=== PATIENT | female | born 1960 | race Caucasian/White ===

== ENCOUNTER 2017-10-30 07:57 | Outpatient (POV) | payer OTHER, SELFPAY | END 2017-10-30 12:06 | disposition home or self-care (01) | PROVIDERS: PCP Podiatrist; Visit Provider Podiatrist | DX: Z98.890 Other specified postprocedural states (principal) | CPT/HCPCS: 99024 ==

== ENCOUNTER 2017-11-06 08:05 | Outpatient (POV) | payer OTHER, SELFPAY | END 2017-11-06 12:03 | disposition home or self-care (01) | PROVIDERS: Visit Provider Podiatrist | DX: Z98.890 Other specified postprocedural states (principal) | CPT/HCPCS: 99024; 73630 ==

== ENCOUNTER 2017-11-13 07:59 | Outpatient (POV) | payer OTHER, SELFPAY | END 2017-11-13 13:49 | disposition home or self-care (01) | PROVIDERS: Visit Provider Podiatrist | DX: Z98.890 Other specified postprocedural states (principal) | CPT/HCPCS: 99024 ==

== ENCOUNTER 2017-11-20 09:00 | Outpatient (POV) | payer OTHER, SELFPAY | END 2017-11-20 14:10 | disposition home or self-care (01) | PROVIDERS: Visit Provider Podiatrist | DX: Z98.890 Other specified postprocedural states (principal) | CPT/HCPCS: 99024; 73630; 87070; 87077; 87186 ==

== ENCOUNTER → 2017-12-05 12:55 | Outpatient (CLI) | payer OTHER, SELFPAY ==
--- NOTE | 2017-12-05 13:03 | MR_ITS ---
MR knee RT wo con HISTORY: Right knee pain. Knee popping, pain anterior and posterior ITS.REASON: PAIN, HX OF TORN MENISCUS ORDERING PHYSICIAN: Albania Ramirez MD PATIENT AGE: 57 years COMPARISON: None TECHNIQUE: Standard multiplanar multiecho sequences are performed without contrast. FINDINGS: The menisci appear intact. The collateral ligaments, patellar tendon, and quadriceps tendon all appear intact. There is a radial tear involving the posterior horn of the medial meniscus. Part of the posterior horn of the medial meniscus is missing posteriorly and may be due to prior surgery/meniscectomy. Please correlate with patient's history. There are severe osteoarthritic changes involving all 3 compartments with prominent osteophyte formation along the patella superiorly and inferiorly as well as the distal femur and proximal tibia. There is decrease in joint space both medially and laterally and at the patellofemoral joint. Subcortical altered signal is noted in the distal femur anteriorly with decreased T1 and increased T2 signal as well as the central aspect of the medial tibial plateau consistent with underlying bone marrow edema possibly stemming from the arthritic change. Subcortical cystic changes involving the proximal tibia. There is a small knee joint effusion. IMPRESSION: 1. Radial tear of the posterior horn of the medial meniscus. Posterior horn of medial meniscus is smaller than expected posteriorly and could be due to prior meniscectomy or meniscal tear. 2. Severe osteoarthritic changes with knee joint effusion and bony spurs
== END ==
PROVIDERS: PCP Family Medicine; Visit Provider Family Medicine
DX: M25.561 Pain in right knee (principal); Z87.828 Personal history of other (healed) physical injury and trauma
CPT/HCPCS: 73721

== ENCOUNTER → 2017-12-12 12:20 | Outpatient (CLI) | payer OTHER, SELFPAY ==
--- NOTE | 2017-12-12 12:25 | XR_ITS ---
XR foot LT min 3V HISTORY: Left foot pain ITS.REASON: LEFT FOOT PAIN ORDERING PHYSICIAN: Piper Rice PATIENT AGE: 57 years COMPARISON: 11/06/2017 FINDINGS: Status post arthrodesis of the first metatarsophalangeal joint with dorsal bone plate with multiple screws. The screw which is in the middle aspect of the bone plate is oriented obliquely and is now withdrawn by approximately 8 mm with the proximal aspect of the screw extending in the soft tissues. The long wires have been removed from the first and second toes. Status post fusion of the PIP joint of the second toe with good alignment. Borderline pes planus. IMPRESSION: 1. Status post arthrodesis of the first metatarsophalangeal joint. The central screw within the bone plate has distracted by approximately 8 mm compared to the previous exam projecting into the soft tissues of the dorsal aspect of the metatarsophalangeal junction 2. Interval removal of the pins in the first and second toes
== END ==
PROVIDERS: PCP Nurse Practitioner; Visit Provider Nurse Practitioner
DX: M79.672 Pain in left foot (principal)
CPT/HCPCS: 73630

== ENCOUNTER 2017-12-19 07:29 | Day surgery (SDC) | payer OTHER, SELFPAY ==
[2017-12-18 12:36] VITALS: BMI 32.1
--- NOTE | 2017-12-19 | XR_ITS ---
XR toe LT min 2V CLINICAL INDICATION: ITS.REASON: SCREW REMOVAL ORDERING PHYSICIAN: Mony Peterson DPM PATIENT AGE: 57 years Fluoroscopy time: 36 seconds COMPARISON: 12/12/2017 FINDINGS: C-arm utilized with multiple images submitted showing interval removal of the oblique screw within the mid aspect of the dorsal bone plate. IMPRESSION: C-arm utilized with multiple images submitted showing interval removal of the oblique screw within the mid aspect of the dorsal bone plate.
[2017-12-19 08:09] VITALS: BP 151/75; PULSE 66; RESP 20; TEMP 36.4; O2SAT 95
--- NOTE | 2017-12-19 08:57 | HMH.OPNOTE ---
Date of procedure: 12/19/17 Pre-op Diagnosis:: Left Painful Retained Hardware Post-op diagnosis:: same Procedure performed:: Left 1st MPJ Hardware Removal Surgeon:: Mony Peterson DPM [employer] ENAMEL REPAIRER:: Tony Reid Anesthesia: MAC Estimated blood loss (mL): 10 Clinical Note:: Ms. Tavares is 57 y/o female who presents for post op check. S/p left 1st MPJ AD, 2nd PIPJ AD with MPJ release on 10/22/17. POD 4 weeks, 1 day. Denies new complaints. Pain controlled. Patient is s/p right second PIPJ arthrodesis and MPJ release on 07/04/17. Patient reports having a right knee MRI 12/05/17. She said pain started to the top of the left 1st MPJ 12/08/17. She noticed a small bump or cyst on the top of the joint. She denies drainage, malodor, signs of infection. 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 S/P Left 1st MPJ AD, 2nd PIPJ AD (with implant), 2nd MPJ Release, 10/22/17: POD # 4 weeks, 1 day X-rays taken of left foot today, 12/12/17 show 1st MPJ lag screw backing out of the plate by 8mm. No definitive signs of infection. We discussed the x-ray. It is possible that the MRI loosened the screw because it was less than 8 weeks since surgery. We also discussed the possibility of infection. There is no open wound to the hallux/1st MPJ. We discussed HWR and doing infection markers and bone biopsy to rule out deep infection. HWR Surgery Pre-op: Conservative treatment included ice, elevation, NSAIDs, strapping, taping, modification of shoe gear, and stretching. Conservative treatment discussed but has been exhausted. We discussed surgery. All risks and benefits were discussed including but not limited to: damage to blood vessels and nerves, bleeding, infection, wound complications, delayed or non-union of bone, post-traumatic arthritis, need for further surgery, retained implant, prolonged swelling of the extremity, prolonged pain, RSD/CRPS, DVT, and anesthetic complications. No guarantees were given. All questions fully answered. The patient verbalized understanding and agreed to proceed with surgery. Consent was obtained. Necessary labs and pre-op testing ordered: CBC, CMP, ESR, CRP. Short fracture boot dispensed and applied today in office. e-Rx Bactrim post op Plan surgery: left hardware removal, bone biospy Operative findings:: No purulence or signs of infection Intrafragmentary compression screw backing out of plate Operative note:: On this date and time patient was deemed an appropriate surgical candidate. With informed consent signed, the patient was taken to the operating theater. The patient was positioned supine. MAC anesthesia was induced. Tourniquet was applied to the left mid-calf. Pre-op left ankle block given with 30 cc 0.5% marcaine plain. Left 1st Metatarsal Hardware Removal: The left lower extremity was prepped and drapped in normal sterile fashion. The tourniquet was inflated at 225mmHg. Attention was directed to the left 1st MPJ, where a dorsal linear incision was mapped out over the joint. Dissection was carried thru skin and sub q tissue, with care to maintain surgical hemostasis. The intrafragmentary compression screw was visualized. It had backed out of the 1st MPJ locking plate. The screw was removed. It was sent to the lab for culture. No signs of infection noted. The soft tissue appeared healthy with no lion or necrotic tissue noted. There was no purulence or malodor appreciated. No periwound erythema or palpable lymph nodes. Left 1st Metatarsal Bone Biopsy: The was flushed with copious amounts of normal sterile saline. A piece of the first metatarsal was sent as a bone culture and another piece of bone was taken as a bone biopsy for pathology. Bone was hard, color and texture was within normal limits. The 1st MPJ was stressed under intra-operative fluoroscopy. The joint appeared stable with no motion at the 1st MPJ. [employer] bone pu
--- NOTE | 2017-12-19 09:08 | HMH.ANESCL ---
[facility] Anesthesia Checklist - Patient Identification Patient Identification: Arm Band - Structural Data Admitted From: Home Planned Operative Procedure/s: left foot hardware removal, bone biopsy Consent for Planned Operative Procedure(s) Verified: Yes Verified Documents: Surgical Consent - NPO Status Verified Time NPO: 00:00 - Additional verifications Anesthesia Reactions: No - Airway Assessment C-Spine Mobility Assessed: Yes (MP2) TMJ Mobility Assessed: Yes Dentition: Good Dentition - Neurological Assessment Level of Consciousness: Awake, Alert - Anesthesia Plan Anesthesia Risk discussed: Yes Anesthesia Plan: Verified ASA Class: II Anesthesia Type: MAC [facility] Anesthesia HX I have reviewed the patient's past medical history: Yes Medical History: Reports:: Hypertension Denies:: Cancer, Diabetes Mellitus Type 1, Internal Pacemaker, MRSA, Seizures Other Medical History: Denies: Blood Transfusion Reaction Comment: YOANA-cpap hs , seasonal allergies, migraines, fibromyalgia Laterality Cases: Left: Total Knee Replacement, Right: Carpal Tunnel Release, Bilateral: Arthroscopy Knee Other Surgeries: Yes: Appendectomy. No: Pacemaker Amputation: No Fractures: No Comment: cystoscopy, right wrist, btl *Family Hx:: Diabetes, Hyperlipidemia, Hypertension, Kidney Disease
[2017-12-19 09:55] VITALS: BP 132/78; PULSE 60; RESP 16; TEMP 36.7; O2SAT 98
--- NOTE | 2017-12-19 10:03 | XR_ITS ---
XR foot LT min 3V HISTORY: ITS.REASON: post op hardware removal ORDERING PHYSICIAN: Mony Peterson DPM PATIENT AGE: 57 years COMPARISON: 12/12/2017 FINDINGS: Postop portable views are obtained showing interval removal of the oblique screw in the mid aspect of the dorsal bone plate at the first metatarsophalangeal junction. There remains good alignment of the first MTPJ and bone plate as well as the fusion of the second PIP joint. IMPRESSION: Interval removal of central oblique screw within the bone plate as described above
[2017-12-19 10:10] VITALS: BP 121/76; PULSE 57; RESP 18; TEMP 36.7; O2SAT 100
[2017-12-19 10:25] VITALS: BP 125/84; PULSE 55; RESP 18; TEMP 36.7; O2SAT 99
== END 2017-12-19 10:25 | disposition home or self-care (01) ==
LOC: OR 07:31
PROVIDERS: PCP Nurse Practitioner; Visit Provider Podiatrist
PROC: (CPT 20680; principal; 2017-12-19 09:00)
DX: T84.84XA Pain due to internal orthopedic prosthetic devices, implants and grafts, initial encounter (principal)
CPT/HCPCS: 20680; 20240; 73630; 73660; 76000; 87070; 87205; 96374; C1713

== ENCOUNTER → 2017-12-29 08:30 | Outpatient (CLI) | payer OTHER, SELFPAY ==
--- NOTE | 2017-12-29 08:39 | XR_ITS ---
XR foot LT min 3V Ordering Physician: Mony Peterson DPM Patient Age: 57 years: Female HISTORY: ITS.REASON: POST OP LT FOOT TECHNIQUE: 3 view left foot weightbearing COMPARISON :Previous left foot for comparison 12/19/2017. FINDINGS: Again see the dorsal applied plate bridging the first MTP joint. Stable appearance. first metatarsophalangealjunction. There remains good alignment of the first MTPJ and bone plate . Stable position at the threaded screw transversing second PIP joint fusion at this joint as well.c. Thick plantar calcaneal spur incidentally noted 11 mm Borderline pes planus. IMPRESSION:. Stable appearance dorsal bone plate & osseous elements at postoperative first MTP joint . Stable fusion PIP joint second toe also noted described above IMPRESSION:
== END ==
PROVIDERS: PCP Family Medicine; Visit Provider Podiatrist
DX: Z48.89 Encounter for other specified surgical aftercare (principal)
CPT/HCPCS: 73630

== ENCOUNTER → 2018-01-27 07:58 | Outpatient (CLI) | payer OTHER, SELFPAY ==
--- NOTE | 2018-01-27 08:24 | XR_ITS ---
XR foot LT min 3V HISTORY: Follow-up surgery ITS.REASON: POST OP ORDERING PHYSICIAN: Mony Peterson DPM PATIENT AGE: 57 years COMPARISON: 12/29/2017 FINDINGS: Status post fusion of the first MTP joint with dorsal bone plate with good alignment and no evidence of complication. Stable position of the threaded screw traversing the second PIP with good alignment. Mild pes planus. Thick calcaneal spur once again noted. IMPRESSION: No change status post fusion of the first MTP joint and second PIP joint and second PIP.
== END ==
PROVIDERS: PCP Family Medicine; Visit Provider Podiatrist
DX: Z98.890 Other specified postprocedural states (principal)
CPT/HCPCS: 73630

== ENCOUNTER → 2018-10-09 09:48 | Outpatient (CLI) | payer OTHER, SELFPAY | PROVIDERS: Visit Provider Orthopaedic Surgery | DX: S81.001A Unspecified open wound, right knee, initial encounter (principal); L08.9 Local infection of the skin and subcutaneous tissue, unspecified | CPT/HCPCS: 87070; 87077; 87186; 87205 ==

== ENCOUNTER → 2018-11-26 09:19 | Outpatient (CLI) | payer OTHER, SELFPAY ==
--- NOTE | 2018-11-26 09:24 | MM_ITS ---
MM Dig screening mamm BI w/CAD CAD Screening COMPARISON: Digital mammograms with CAD 10/10/2017. And 09/30/2016 INDICATION: There is no personal or family history of breast cancer. There is been previous biopsy right breast for benign disease. TECHNIQUE: Standard CC and MLO images were obtained. R2 CAD reviewed. FINDINGS: Breast are composed primarily of fat with minimal scattered fiber glandular densities throughout each breast. There are multiple too numerous to count benign-appearing macro] and micro- calcifications in each breast. There is no suspicious lesion and no suspicious microcalcifications. IMPRESSION: Stable exam no suspicious lesion seen BI-RADS Category: 2 Benign Finding(s) RECOMMENDED FOLLOW-UP: 1YR - 1 YEAR FOLLOW-UP (A letter has been sent to the patient regarding results of the study.)
== END ==
PROVIDERS: PCP Nurse Practitioner; Visit Provider Nurse Practitioner
DX: Z12.31 Encounter for screening mammogram for malignant neoplasm of breast (principal)
CPT/HCPCS: 77067

== ENCOUNTER 2018-12-02 09:30 | Outpatient (RCR) | payer OTHER, SELFPAY | END 2018-12-02 09:35 | disposition home or self-care (01) | LOC: PT 09:30 | PROVIDERS: Visit Provider Orthopaedic Surgery | DX: M25.561 Pain in right knee (principal) | CPT/HCPCS: 87070; 87077; 87186; 87205; 97163; 97164; 97597 ==

== ENCOUNTER → 2019-01-25 12:11 | Outpatient (CLI) | payer OTHER, SELFPAY | PROVIDERS: PCP Family Medicine; Visit Provider Nurse Practitioner | DX: R00.2 Palpitations (principal) | CPT/HCPCS: 93225; 93226 ==

== ENCOUNTER → 2019-09-21 15:47 | Outpatient (CLI) | payer OTHER, SELFPAY ==
--- NOTE | 2019-09-21 15:56 | XR_ITS ---
PROCEDURE: XR HIP RT 2-3V W/PELVIS CLINICAL INDICATION: RT HIP BURSITIS Right hip pain COMPARISON: ABDPELW/O CT ABD PELVIS W/O CONTRAST from 12/28/2013 HIP2R HIP-2 VIEWS-RT from 09/22/2014 KUB KUB (SINGLE VIEW) from 09/18/2015 FINDINGS: There are minimal osteoarthritic changes of the right hip. This has slightly progressed since 09/22/2014. There are mild osteoarthritic changes also of the right SI joint. There are hypertrophic changes along the lateral aspect of the iliac crest which may be due to old fracture. There are multiple injection granulomas present as well. IMPRESSION: 1. Slight worsening of the mild osteoarthritic change of the right hip and right SI joint. 2. Hypertrophic changes along the iliac crest laterally which could be due to old injury or even osteo chondroma. This does not appear significantly changed compared to older studies Dictated by: Dae Leos MD 09/21/2019 16:39 Electronically signed by Dae Leos MD in [place] 09/21/2019 16:39
== END ==
PROVIDERS: PCP Nurse Practitioner; Visit Provider Nurse Practitioner
DX: M70.71 Other bursitis of hip, right hip (principal)
CPT/HCPCS: 73502

== ENCOUNTER → 2020-04-06 07:54 | Outpatient (CLI) | payer OTHER, SELFPAY ==
--- NOTE | 2020-04-06 08:09 | MM_ITS ---
PROCEDURE: CLINICAL INDICATION: There is no personal or family history of breast cancer. COMPARISON: [facility] DIG MAMM-SCREEN SHANEKA from 09/30/2016 [facility] DIG MAMM-SCREEN [place]KA W/CAD from 10/10/2017 [facility] MM Dig screening mamm BI w/CAD from 11/26/2018 FINDINGS: The breasts are composed primarily of fat with scattered fibroglandular densities throughout each breast. There are multiple benign-appearing micro and microcalcifications in each breast. Jona images were reviewed. There is no suspicious lesion in either breast and no suspicious microcalcifications. IMPRESSION: Fatty type breast parenchyma with no suspicious lesions seen BI-RADS category 2 benign Continue with yearly follow-up Dictated by: Dr. Jimbo Barney MD 04/16/2020 10:[address] Jimbo Barney MD in [place] 04/16/2020 10:37
== END ==
PROVIDERS: PCP Nurse Practitioner; Visit Provider Nurse Practitioner
DX: Z12.31 Encounter for screening mammogram for malignant neoplasm of breast (principal)
CPT/HCPCS: 77063; 77067

== ENCOUNTER → 2020-07-19 12:15 | Outpatient (CLI) | payer OTHER, SELFPAY ==
--- NOTE | 2020-07-19 12:22 | XR_ITS ---
PROCEDURE: XR LUMBAR SPINE MIN 4V CLINICAL INDICATION: LUMBAR BACK PAIN COMPARISON: No exams were available for comparison FINDINGS: Lumbar curvature convex left. No fracture or dislocation. Multilevel degenerative disc disease at T12-L1 L1-L2 L4-5 and L5-S1. There is 6 mm anterolisthesis of L4 on L5. Facet arthritic changes are present at L3-L4 and L5. No lytic or blastic change. IMPRESSION: Lumbar spondylosis with degenerative disc disease and facet arthrosis Dictated by: Dae Leos MD 07/19/2020 13:05 Dae Leos MD in [place] 07/19/2020 13:05
== END ==
PROVIDERS: PCP Nurse Practitioner; Visit Provider Nurse Practitioner
DX: M54.5 Low back pain (principal)
CPT/HCPCS: 72110

== ENCOUNTER → 2020-11-22 15:13 | Outpatient (CLI) | payer OTHER, SELFPAY ==
--- NOTE | 2020-11-22 15:16 | MR_ITS ---
PROCEDURE: MR HIP RT WO CON CLINICAL INDICATION: HIP PAIN RT HIP PAIN. PAINFUL TO WALK. SYMPTOMS X2WKS. PRIOR [id number] COMPARISON: CR XR HIP RT 2-3V W/PELVIS from 09/21/2019 TECHNIQUE: Routine multiplanar multi echo sequences are performed without gadolinium enhancement. FINDINGS: There is no evidence of avascular necrosis of the femoral head. No acute fracture is evident. There is a small right hip joint effusion and there are mild osteoarthritic changes of the right hip. There is abnormal bone marrow signal intensity within the ileum along the lateral and superior aspect of the acetabulum extending superiorly for proximally 2.7 cm. This is hypointense on T1 and hyperintense on T2. There is a question of a small subchondral cyst at this area. No abnormal soft tissue mass or abnormal signal within the adjacent soft tissues. IMPRESSION: 1. Osteoarthritic changes of the right hip with small hip joint effusion. 2. Abnormal bone marrow signal intensity of the ilium in the supra-acetabular region of described above. This may represent inflammatory changes from the underlying osteoarthritis as there does appear to be a small subchondral cyst in the superior acetabulum. The abnormal signal could be related to sub adjacent inflammatory changes from the osteoarthritis. Differential diagnosis would include infection or neoplasm or bone bruise in the appropriate clinical setting. Please correlate with clinical parameters. Follow-up is recommended. 3. No evidence of avascular necrosis of the femoral head Dictated by: Dae Leos MD 11/27/2020 08:30 Dae Leos MD in [place] 11/27/2020 08:30
== END ==
PROVIDERS: PCP Nurse Practitioner; Visit Provider Nurse Practitioner
DX: M25.551 Pain in right hip (principal)
CPT/HCPCS: 73721

== ENCOUNTER 2021-01-15 13:50 | Day surgery (SDC) | payer OTHER, SELFPAY ==
[2021-01-15] VITALS (10 sets, daily range): BP systolic 125–157; BP diastolic 66–91; PULSE 79–86; RESP 16–18; TEMP 36.2–43; O2SAT 95–99; BMI 34.4
[2021-01-15 09:41] LABS: Blood Urea Nitrogen 33 mg/dl (7-17); Estimated Glomerular Filt Rate 36 ml/min (>60); GFR (African American) 43 ML/MIN (>60)
--- NOTE | 2021-01-15 09:43 | CT_ITS ---
PROCEDURE: CT ABDOMEN PELVIS WO CON CLINICAL INDICATION: NAUSEA,LLQ PAIN COMPARISON: CT ABDPELW/O CT ABD PELVIS W/O CONTRAST from 09/10/2015 TECHNIQUE: Axial images obtained with sagittal and coronal reformats. All CT scans at the facility use one or more dose reduction, viz: automated exposure control, ma/kV adjustment per patient size (including targeted exams where dose is matched to indication, i.e. head), or iterative reconstruction technique. FINDINGS: LOWER THORAX: No acute finding ABDOMEN & PELVIS: There is a 1.5 centimeter right adrenal lesion. Hounsfield units consistent with a benign adrenal adenoma versus an angiomyolipoma. There is a 7 millimeter by 5 millimeters by 4 millimeter left proximal ureteral stone with moderate left hydronephrosis. The remaining solid abdominal organs have a normal unenhanced appearance. Bilateral tubal ligation clips versus ovarian calcifications are visible, correlate with surgical history. Pelvic structures have an otherwise unremarkable unenhanced appearance. There is a small outpouching the rectum uncertain etiology. This could represent a postsurgical change or a diverticulum of the rectum. There is no abdominal or pelvic adenopathy. The major abdominal and pelvic vasculature have an unremarkable unenhanced appearance. There is mild left convex curvature of the lumbar spine, probably partly positional. There is fusion of 2 lower thoracic vertebral bodies. There is a grade 1 anterolisthesis within the lower lumbar spine without associated spondylolysis. IMPRESSION: 1. 7 millimeter left proximal ureteral stone with moderate left hydronephrosis. 2. 1.5 centimeter benign right adrenal lesion. 3. Tubal ligation clips versus ovarian calcifications. 4. Small rectal out pouching of uncertain significance or etiology. 5. Other minor findings as described above. Dictated by: Ariana Dean 01/15/2021 12:46 Ariana Dean in [place] 01/15/2021 12:46
--- NOTE | 2021-01-15 15:03 | FL_ITS ---
PROCEDURE: FL URETHROCYSTOGRAM RETRO CLINICAL INDICATION: URETEROSCOPY WITH C-ARM Left ureteroscopy with stent placement using C-arm guidance COMPARISON: CT CT ABDOMEN PELVIS WO CON from 01/15/2021 FINDINGS: Saved images revealed catheter placement over guidewire with pigtail in the expected location of the left renal pelvis. No saved image of the distal pigtail was obtained. Fluoroscopy dose 36.2 mGy IMPRESSION: Intraoperative fluoroscopy for ureteral stent placement Dictated by: Ariana Dean 01/15/2021 19:20 Ariana Dean in [place] 01/15/2021 19:20
--- NOTE | 2021-01-15 15:24 | HMH.HP ---
*Admission Date: 01/15/21 *Chief complaint: Left ureteral stone *History of present illness: Patient is a 60-year-old white female with a 3-day history of left lower quadrant pain. She presented to Dr. Ramirez today and a CT scan was performed showing a 7 mm proximal left ureteral stone. She has a previous history of kidney stones and states she underwent surgery about 5 years ago here at [facility]. She denies any fevers or chills. She has had some nausea. Patient was referred from Dr. Ramirez's office today and she is to be admitted as an outpatient for the procedure and then back home. We have discussed that the stone is high in the ureter and stone extraction may not be possible today in a two-stage procedure may be needed. [facility] History Medical History: Reports:: Hypertension Denies:: Cancer, Diabetes Mellitus Type 1, Diabetes Mellitus Type 2, Internal Pacemaker, MRSA, Seizures *Have you ever received a pneumonia vaccine?: No *Have you received a flu vaccine this season?: No Other Medical History: Denies: Blood Transfusion Reaction Laterality Cases: Right: Carpal Tunnel Release, Bilateral: Arthroscopy Knee, Cataract Other Surgeries: Yes: Appendectomy. No: Pacemaker Amputation: No Fractures: No - *Social History Last grade of school completed: 11th or 12th Smoking Status: Former smoker Tobacco Type: cigarettes # Packs/Day (cigarettes): 0 #Yrs smoked (if former smoker): 0 Alcohol Intake: never Alcohol Intake Frequency:: 0-2 drinks per day Substance Use Type: denies use *Occupational Status:: employed Housing: house Household Members: spouse *Travel in the last 8 weeks: None Family Hx:: Diabetes Review of Systems - Review of Systems Review of systems:: pertinent systems reviewed and negative unless documented below Meds Home Medications Medication Instructions Recorded Confirmed Type furosemide 40 mg tablet 40 mg PO DAILY 45 Days #90 12/15/17 12/19/17 History losartan 25 mg tablet 25 mg PO DAILY 30 Days #30 12/15/17 12/19/17 History metoprolol tartrate 100 mg tablet 100 mg PO DAILY 30 Days #60 12/15/17 12/19/17 History montelukast 10 mg tablet 10 mg PO DAILY 30 Days #30 12/15/17 12/19/17 History sumatriptan succinate 100 mg tablet 100 mg PO DAILY 34 Days #10 12/15/17 12/19/17 History venlafaxine 75 mg capsule,extended 75 mg PO DAILY 30 Days #30 12/15/17 12/19/17 History release 24 hr Cholecalciferol (Vitamin D3) 5,000 unit PO DAILY 12/18/17 12/19/17 History [Vitamin D3] Meloxicam 15 mg PO DAILY 12/18/17 12/19/17 History allopurinoL [Allopurinol 100mg 300 mg PO DAILY 12/18/17 12/19/17 History tablet] Loratadine [Claritin] 10 mg PO DAILY 12/19/17 12/19/17 History Mometasone Furoate [Nasonex] 17 gm NS DAILY 12/19/17 12/19/17 History Dicyclomine HCl [Bentyl 10mg 10 mg PO DAILY 01/15/21 01/15/21 History capsule] Hydrocod/Acet 5/325 mg [[place] 1 tab PO Q4HP PRN 01/15/21 01/15/21 History 5/325mg tablet] Allergies Allergy/AdvReac Type Severity Reaction Status Date / Time peanut Allergy Severe Rash Verified 01/15/21 14:11 diclofenac [From [place]aid] Allergy Mild itching Verified 01/15/21 14:11 amitriptyline Allergy Unknown HALLUCINATI Verified 01/15/21 14:11 ONS codeine Allergy Unknown HEADACHES Verified 01/15/21 14:11 dexamethasone Allergy Unknown MIGRAINES,I Verified 01/15/21 14:11 NSOMNIA hydromorphone [From Dilaudid] Allergy Unknown SENSITIVE Verified 01/15/21 14:11 TO -NOT ALLERGIC latex Allergy Unknown ITCHING,HIV Verified 01/15/21 14:11 ES,SWELLING ,RASH Exam Vital signs and Labs for Last 24 Hours: Temp Pulse Resp BP Pulse Ox 97.2 F L 83 18 146/87 H 95 01/15/21 14:19 01/15/21 14:19 01/15/21 14:19 01/15/21 14:19 01/15/21 14:19 Laboratory Results - last 24 hr 01/15/21 09:18: BUN 33 H, Creatinine 1.50 H, Estimated GFR 36 L, Est GFR ( Amer) 43 L I & O for Last 24 hours: Intake & Output 01/12/21 01/13/2101/14/21 0
[2021-01-15 15:25] LABS: Coronavirus 19 IgG Antibody Negative (Negative); Coronavirus 19 IgM Antibody Negative (Negative)
--- NOTE | 2021-01-15 15:54 | HMH.ANESCL ---
[facility] Anesthesia Checklist - Patient Identification Patient Identification: Arm Band - Structural Data Admitted From: Home Planned Operative Procedure/s: Cystoscopy with Left ureteral stent placement Consent for Planned Operative Procedure(s) Verified: Yes Verified Documents: Surgical Consent, History and Physical - NPO Status Verified Time NPO: 00:00 - Additional verifications Anesthesia Reactions: No Hx Blood Transfusions: No Blood Transfusion Reaction: No - Airway Assessment C-Spine Mobility Assessed: Yes (mp2) TMJ Mobility Assessed: Yes Dentition: Poor Dentition - Neurological Assessment Level of Consciousness: Awake, Alert - Anesthesia Plan Anesthesia Risk discussed: Yes Anesthesia Plan: Verified ASA Class: III Anesthesia Type: General [facility] History I have reviewed the patient's past medical history: Yes Medical History: Reports:: Hypertension Denies:: Cancer, Diabetes Mellitus Type 1, Diabetes Mellitus Type 2, Internal Pacemaker, MRSA, Seizures *Have you ever received a pneumonia vaccine?: No *Have you received a flu vaccine this season?: No Other Medical History: Denies: Blood Transfusion Reaction Anesthesia experience/problems:: nac Laterality Cases: Right: Carpal Tunnel Release, Bilateral: Arthroscopy Knee, Cataract Other Surgeries: Yes: Appendectomy. No: Pacemaker Amputation: No Fractures: No - *Social History Last grade of school completed: 11th or 12th Smoking Status: Former smoker Tobacco Type: cigarettes # Packs/Day (cigarettes): 0 #Yrs smoked (if former smoker): 0 Alcohol Intake: never Alcohol Intake Frequency:: 0-2 drinks per day Substance Use Type: denies use *Occupational Status:: employed Housing: house Household Members: spouse *Travel in the last 8 weeks: None Family Hx:: Diabetes
--- NOTE | 2021-01-15 15:55 | HMH.ANESI ---
[facility] Anesthesia Record Part I Intake, IV Amount: 900 Estimated blood loss (mL): 0 Urine output (mL): 0 Blood Pressure: 157/91 SaO2: 96 Pulse Rate: 83 Respiratory Rate: 16 Temperature: 98.6 F Patient is:: Drowsy, Stable Stable to PACU at:: 15:50
--- NOTE | 2021-01-15 16:00 | HMH.OPNOTE ---
Date of procedure: 01/15/21 Pre-op Diagnosis:: 7 mm left proximal ureteral stone Post-op Diagnosis:: Same Procedure performed:: Cystoscopy with left stone manipulation and left stent placement Surgeon:: Josh Arrieta MD ART DEALER:: Sam Li Anesthesia: LMA Estimated blood loss (mL): 0 Clinical Note:: Patient is a 60-year-old white female referred today for left renal colic of a 3-day duration. CT scan revealed a 7 x 5 mm proximal left ureteral stone. We have discussed treatment options and she presents for urologic management. We discussed possible ureteroscopy stone extraction versus stent placement and later ESWL. She is on allopurinol but is not aware of previous stone composition. Operative findings:: Patient with hazy calcification in the left proximal ureter. It was manipulated proximally in the left stent was placed without difficulty. Operative note:: Patient taken to the operating room after informed consent was obtained. Placed on the operating table in the supine position. General anesthesia administered. Preoperative antibiotics administered. Sequential compression devices placed. She was then placed into the dorsal lithotomy position and prepped and draped in the standard surgical fashion. A 22 Salvadorean cystoscope passed into the urethra which was little stenotic. Scope passed into the bladder and the bladder examined in a systematic fashion. There was no evidence of mucosal abnormalities, stones, trabeculation or diverticula. The ureteral orifices in their normal anatomic position. The left ureteral orifice was cannulated with a 5 Salvadorean ureteral catheter and passed proximally to a hazy stone in the proximal ureter. There was resistance at this point. The stone was able to be manipulated proximally into the renal pelvis with minimal difficulty. A guidewire then passed through the ureteral catheter into the renal pelvis. A 6 x 24 Salvadorean stent was passed over the guidewire and under fluoroscopy the guidewire removed. There was a good curl noted proximally and distally. The string was left on for later removal. Urojet placed into the urethra for comfort. Patient tolerated well. Condition: stable Disposition: PACU Specimens:: None Complications:: None
[2021-01-15 16:31] LABS: POC Glucose,Bedside 85 (70-110)
--- NOTE | 2021-01-16 08:26 | HMH.ANESII ---
[facility] Anesthesia Record Part II Discharge Time: 16:20 Destination: Surgical Day Care (OP Surgery) PACU nurse assessment reviewed?: Yes Patient Condition:: Good Anesthesia Complications:: None Swallowing reflex intact?: Yes Cyanosis?: No Blood Pressure: 136/88 Pulse Rate: 81 Temperature: 98.6 F Mental Status: Alert & Oriented Pain level:: 4 Nausea and/or vomitting:: None Intake, IV Amount: 0
[2021-01-16 08:27] VITALS: BP 136/88; PULSE 81; TEMP 37
== END 2021-01-15 16:50 | disposition home or self-care (01) ==
LOC: OR 13:51
PROVIDERS: PCP Nurse Practitioner Family; Visit Provider Urology
PROC: (CPT 52330; principal; 2021-01-15 14:00)
DX: N20.1 Calculus of ureter (principal); I10 Essential (primary) hypertension; Z87.39 Personal history of other diseases of the musculoskeletal system and connective tissue; Z87.891 Personal history of nicotine dependence; Z72.89 Other problems related to lifestyle; Z79.899 Other long term (current) drug therapy; Z88.8 Allergy status to other drugs, medicaments and biological substances; Z88.6 Allergy status to analgesic agent; Z91.040 Latex allergy status; Z91.010 Allergy to peanuts; R11.0 Nausea; R10.31 Right lower quadrant pain
CPT/HCPCS: 52330; 36415; 74176; 74450; 76000; 82565; 82962; 84520; 86328; 96374; C1769; C2617; J2405

== ENCOUNTER → 2021-01-23 09:25 | Outpatient (CLI) | payer OTHER, SELFPAY ==
--- NOTE | 2021-01-23 09:29 | XR_ITS ---
PROCEDURE: XR KUB CLINICAL INDICATION: ureteral stone COMPARISON: CT CT ABDOMEN PELVIS WO CON from 01/15/2021 CR XR ABDOMEN W OBLIQUE from 01/23/2021 FINDINGS: Left ureteral stent is in place. There is mild lumbar scoliosis convex left. Oblique views of the kidneys demonstrates a 5 mm stone along the lower pole of the left kidney not well demonstrated on this KUB. Posttraumatic changes of the right ilium. IMPRESSION: Left ureteral stent in place with left nephrolithiasis Dictated by: Dae Leos MD 01/23/2021 16:46 Dae Leos MD in [place] 01/23/2021 16:46
--- NOTE | 2021-01-23 11:17 | XR_ITS ---
PROCEDURE: XR ABDOMEN W OBLIQUE CLINICAL INDICATION: Calculus of ureter COMPARISON: CT CT ABDOMEN PELVIS WO CON from 01/15/2021 CR XR KUB from 01/23/2021 FINDINGS: AP and oblique images are performed the upper abdomen. There is a left ureteral stent in place. A faint calcification is present along the lower pole of the left kidney at 5 mm consistent with a left renal. No obvious ureteral calculus apparent. There is mild thoracolumbar curvature convex right. IMPRESSION: Left nephrolithiasis. Left ureteral stent in place. Dictated by: Dae Leos MD 01/23/2021 15:45 Dae Leos MD in [place] 01/23/2021 15:45
== END ==
PROVIDERS: PCP Family Medicine; Visit Provider Urology
DX: N20.1 Calculus of ureter (principal)
CPT/HCPCS: 74010; 74018; 74021

== ENCOUNTER → 2021-01-31 07:36 | Outpatient (CLI) | payer OTHER, SELFPAY | PROVIDERS: PCP Family Medicine; Visit Provider Urology | DX: Z01.818 Encounter for other preprocedural examination (principal); Z20.822 Contact with and (suspected) exposure to COVID-19; U07.1 COVID-19; N20.0 Calculus of kidney | CPT/HCPCS: U0003 ==

== ENCOUNTER → 2021-03-07 07:21 | Outpatient (CLI) | payer OTHER, SELFPAY ==
[2021-03-07 08:41] LABS: Coronavirus 19 IgG Antibody Negative (Negative); Coronavirus 19 IgM Antibody Negative (Negative)
[2021-03-07 09:12] LABS: Basophils # 0.1 K/mm3 (0-0.2); Basophils % 1.3 % (0.1-2.0); Eosinophils # 0.3 K/mm3 (0.0-0.4); Eosinophils % 5.3 % (0.1-12.0); Hematocrit 44.7 % (37.0-47.0); Hemoglobin 14.3 g/dL (12.2-16.2); Lymphocytes # 2.1 K/mm3 (0.7-4.5); Mean Corpuscular HGB Conc 31.9 g/dL (31.8-35.4); Mean Corpuscular Hemoglobin 30.8 pg (27.0-31.2); Mean Corpuscular Volume 96.3 fl (81-99); Mean Platelet Volume 8.5 fl (7.4-10.4); Monocytes # 0.4 K/mm3 (0.1-1.0); Monocytes % 5.9 % (1.7-9.3); Neutrophils # 3.1 K/mm3 (1.8-7.8); Neutrophils % 51.4 % (37.0-80.0); Platelet Count 263 K/mm3 (142-424); Red Blood Count 4.64 M/mm3 (4.20-5.40); Red Cell Distribution Width 13.6 % (11.5-17.5)
[2021-03-07 09:16] LABS: Chloride 108 mmol/L (98-107)
[2021-03-07 09:17] LABS: Potassium 4.5 mmoL/L (3.5-5.1); Sodium 142 mmol/L (136-145)
[2021-03-07 09:20] LABS: Anion Gap 9.5 mEq/L (5-15); Blood Urea Nitrogen 21 mg/dl (7-17); Calcium 9.4 mg/dl (8.4-10.2); Carbon Dioxide 29 mmol/L (22.0-30.0); Estimated Glomerular Filt Rate 64 ml/min (>60); GFR (African American) 78 ML/MIN (>60); Glucose 96 mg/dl (74-100)
== END ==
PROVIDERS: Visit Provider Urology
DX: Z01.812 Encounter for preprocedural laboratory examination (principal); Z20.822 Contact with and (suspected) exposure to COVID-19; N13.2 Hydronephrosis with renal and ureteral calculous obstruction
CPT/HCPCS: 36415; 80048; 85025; 86328

== ENCOUNTER 2021-03-09 08:45 | Day surgery (SDC) | payer OTHER, SELFPAY ==
[2021-03-06 10:36] VITALS: BMI 32.7
[2021-03-09] VITALS (9 sets, daily range): BP systolic 136–179; BP diastolic 60–86; PULSE 53–65; RESP 16–20; TEMP 36.1–36.6; O2SAT 90–100
--- NOTE | 2021-03-09 08:54 | XR_ITS ---
PROCEDURE: XR KUB CLINICAL INDICATION: ureteral stone COMPARISON: CT CT ABDOMEN PELVIS WO CON from 01/15/2021 CR XR ABDOMEN W OBLIQUE from 01/23/2021 CR XR KUB from 01/23/2021 FINDINGS: Left ureteral stent is in place in good position proximally and distally. No obvious renal or ureteral calculi. There are bilateral tubal ligation clips present. Injection granulomas noted in the gluteal regions.. Posttraumatic change right ilium. IMPRESSION: Good position left ureteral stent Dictated by: Dae Leos MD 03/09/2021 09:06 Dae Leos MD in [place] 03/09/2021 09:06
--- NOTE | 2021-03-09 10:29 | P.PN_ITS ---
[facility] Anesthesia Checklist - Patient Identification Patient Identification: Arm Band - Structural Data Admitted From: Home Planned Operative Procedure/s: Left ESWL, cystoscopy with stent removal Consent for Planned Operative Procedure(s) Verified: Yes Verified Documents: Surgical Consent, History and Physical - NPO Status Verified Time NPO: 00:00 - Additional verifications Anesthesia Reactions: Yes ( deathly sick need patch) Hx Blood Transfusions: No Blood Transfusion Reaction: No - Airway Assessment C-Spine Mobility Assessed: Yes (mp2) TMJ Mobility Assessed: Yes Dentition: Good Dentition - Neurological Assessment Level of Consciousness: Awake, Alert - Anesthesia Plan Anesthesia Risk discussed: Yes Anesthesia Plan: Verified ASA Class: II Anesthesia Type: General [facility] History I have reviewed the patient's past medical history: Yes Medical History: Reports:: Hypertension, Lung Disease ([place]-cpap), Kidney Stones Denies:: Cancer, Diabetes Mellitus Type 1, Diabetes Mellitus Type 2, Internal Pacemaker, MRSA, Seizures *Have you ever received a pneumonia vaccine?: No *Have you received a flu vaccine this season?: No Other Medical History: Denies: Blood Transfusion Reaction Anesthesia experience/problems:: nac Laterality Cases: Right: Carpal Tunnel Release, Bilateral: Arthroscopy Knee Other Surgeries: Yes: Appendectomy, Colonoscopy, Other. No: Pacemaker Amputation: No Fractures: No - *Social History Last grade of school completed: High school graduate Smoking Status: Never smoker Tobacco Type: cigarettes # Packs/Day (cigarettes): 0 #Yrs smoked (if former smoker): 0 Alcohol Intake: never Alcohol Intake Frequency:: 0-2 drinks per day Substance Use Type: denies use *Occupational Status:: employed Housing: house Household Members: spouse *Travel in the last 8 weeks: None Family Hx:: Diabetes
--- NOTE | 2021-03-09 10:59 | HMH.ANESI ---
[facility] Anesthesia Record Part I Intake, IV Amount: 900 Estimated blood loss (mL): 0 Urine output (mL): 0 Blood Pressure: 139/78 SaO2: 90 Pulse Rate: 62 Respiratory Rate: 16 Temperature: 97.3 F Patient is:: Drowsy, Stable Stable to PACU at:: 10:55
--- NOTE | 2021-03-09 11:00 | P.OP_ITS ---
Date of procedure: 03/09/21 Pre-op Diagnosis:: 7 mm left kidney stone Post-op Diagnosis:: Same as preop Procedure performed:: Left ESWL, stent removal per indwelling string Surgeon:: Josh Arrieta MD NURSING INFORMATION SYSTEMS COORDINATOR:: Sam Li Anesthesia: GETA Estimated blood loss (mL): 0 Clinical Note:: Patient is a 60-year-old white female who underwent previous left ureteral stone manipulation and left stent placement for a 7 mm proximal left ureteral stone. She presents today for left ESWL. She states she is tolerating the stent well. Operative findings:: Preoperative KUB and fluoroscopy shows hazy calcification just inferior to the curl of the stent. The stent is in good position. Operative note:: Patient taken to the operating room after informed consent was obtained. She was placed on the operating table in the supine position and general anesthesia administered. Preoperative antibiotics and sequential compression devices placed. She was then padded appropriately and the saline bag was placed underneath her left flank. The lithotripter was then brought into position and the stone is noted to be very hazy but was noted just under the curl of the stent. 3000 shockwaves delivered to the stone with apparent good fragmentation. After the procedure the stent was removed with use of the urethral stream. Stent was removed without difficulty. Patient tolerated procedure well there are no complications. Condition: stable Disposition: same day Specimens:: Left ureteral stent not sent Complications:: None
--- NOTE | 2021-03-10 10:30 | P.PN_ITS ---
[facility] Anesthesia Record Part II Discharge Time: 11:25 Destination: Surgical Day Care (OP Surgery) PACU nurse assessment reviewed?: Yes Patient Condition:: Good Anesthesia Complications:: None Swallowing reflex intact?: Yes Cyanosis?: No Blood Pressure: 146/71 Pulse Rate: 59 Temperature: 97.3 F Mental Status: Alert & Oriented Pain level:: 0 Nausea and/or vomitting:: None Intake, IV Amount: 0
[2021-03-10 10:32] VITALS: BP 146/71; PULSE 59; TEMP 36.3
== END 2021-03-09 12:00 | disposition home or self-care (01) ==
PROVIDERS: PCP Family Medicine; Visit Provider Urology
PROC: (CPT 50590; principal; 2021-03-09 10:45)
DX: N13.2 Hydronephrosis with renal and ureteral calculous obstruction (principal); I10 Essential (primary) hypertension; G47.33 Obstructive sleep apnea (adult) (pediatric); Z87.39 Personal history of other diseases of the musculoskeletal system and connective tissue; Z83.3 Family history of diabetes mellitus; Z88.8 Allergy status to other drugs, medicaments and biological substances; Z88.6 Allergy status to analgesic agent; Z91.040 Latex allergy status; Z91.010 Allergy to peanuts; Z79.899 Other long term (current) drug therapy
CPT/HCPCS: 50590; 52310; 74018; 96374; J2405

== ENCOUNTER → 2021-03-16 13:43 | Outpatient (CLI) | payer OTHER, SELFPAY ==
--- NOTE | 2021-03-16 13:47 | XR_ITS ---
PROCEDURE: XR KUB CLINICAL INDICATION: ureteral stone COMPARISON: CT CT ABDOMEN PELVIS WO CON from 01/15/2021 FINDINGS: Nonspecific bowel gas pattern. No definite ureteral or renal calculus apparent. Bilateral tubal ligation clips are present. Heterotopic ossification noted lateral to the right ilium mild lumbar scoliosis convex left. IMPRESSION: No definite renal or ureteral calculus. Dictated by: Dae Leos MD 03/16/2021 17:41 Dae Leos MD in [place] 03/16/2021 17:41
== END ==
PROVIDERS: PCP Family Medicine; Visit Provider Urology
DX: N13.2 Hydronephrosis with renal and ureteral calculous obstruction (principal)
CPT/HCPCS: 74018

== ENCOUNTER → 2021-03-16 14:42 | Outpatient (CLI) | payer OTHER, SELFPAY ==
[2021-03-30 17:09] LABS: Specimen Type Not Provided
[2021-03-30 17:10] LABS: Composition PERCENTAGE
== END ==
PROVIDERS: Visit Provider Urology
DX: N13.2 Hydronephrosis with renal and ureteral calculous obstruction (principal)
CPT/HCPCS: 82370

== ENCOUNTER 2021-07-08 16:44 | Emergency (ER) | payer OTHER, SELFPAY ==
[2021-07-08 16:45] VITALS: BP 142/90; PULSE 58; RESP 16; TEMP 37.3; O2SAT 97; BMI 32.8
[2021-07-08 16:50] VITALS: BP 142/90; PULSE 58; RESP 16; TEMP 37.3; O2SAT 97; BMI 32.9
--- NOTE | 2021-07-08 17:03 | HMH.EDUTC ---
[facility] [place] Clinical Impression: Laceration Disposition: Home, Self-Care Condition on Discharge: Good Instructions: DI for Laceration Repair -- Simple, DI for Minor Laceration Additional Instructions: keep area clean and dry have sutures removed in 10 days watch for s/s of infection follow up with pcp Prescriptions: cephALEXin [Cephalexin 500mg Tab] 500 mg PO BID 7 Days #14 tab Prescription Printed Referrals: Mati Arroyo MD [Primary Care Provider] - Time of Disposition: 17:41 Medical Decision Making - Amos Inquiry Pt receiving controlled substance: No Vital Signs: 07/08/21 16:45 07/08/21 16:50 Temperature 99.2 F 99.2 F Temperature Source Oral Oral Pulse Rate [Radial] 58 L 58 L Respiratory Rate 16 16 Blood Pressure [Right Arm] 142/90 H 142/90 H Blood Pressure Mean [Right Arm] 107 107 Blood Pressure Source [Right Arm] Automatic Cuff Blood Pressure Position [Right Arm] Sitting Sitting 02 Sat by Pulse Oximetry 97 97 Oxygen Delivery Method Room Air Room Air Orders (Tests/Meds): ED MEDICATIONS Discontinued Medications Generic Name Dose Route Start Last Admin Trade Name Freq PRN Reason Stop Dose Admin Tetanus/Reduced Diphtheria/Acell Pertussis 0.5 ml 07/08/21 17:05 07/08/21 17:07 Tet/Diphth/Pert-Adult 0.5ml Syringe IM 07/08/21 17:06 0.5 ml .ONCE ONE Administration [facility] [place] [facility] [place] - General Chief complaint: [facility] Stated complaint: AO cut leg on sharp object in trash 1635 Time Seen by Provider: 07/08/21 17:03 Mode of Arrival: Ambulatory Source of Information: Patient Limitations: No Limitations Description of Symptoms (Recalled from Triage Doc. by RN): TO ED PER PVT CAR WITH C/O LAC TO RT LOWER LEG. - History of Present Illness Provider Complaint: 60 yr old female presents for laceration to rt lower leg from something in the trash as she was taking it out. - Related Data Home Medications Medication Instructions Recorded Confirmed furosemide 40 mg tablet 40 mg PO NEEDED PRN 45 Days #90 12/15/17 03/16/21 losartan 25 mg tablet 25 mg PO DAILY 30 Days #30 12/15/17 03/16/21 metoprolol tartrate 100 mg tablet 100 mg PO DAILY 30 Days #60 12/15/17 03/16/21 montelukast 10 mg tablet 10 mg PO DAILY 30 Days #30 12/15/17 03/16/21 sumatriptan succinate 100 mg tablet 100 mg PO NEEDED PRN 34 Days #10 12/15/17 03/16/21 venlafaxine 75 mg capsule,extended 37.5 mg PO DAILY 30 Days #30 12/15/17 03/16/21 release 24 hr Cholecalciferol (Vitamin D3) 5,000 unit PO DAILY 12/18/17 03/16/21 [Vitamin D3] Meloxicam 15 mg PO DAILY 12/18/17 03/16/21 allopurinoL [Allopurinol 100mg 300 mg PO DAILY 12/18/17 03/16/21 tablet] Loratadine [Claritin] 10 mg PO DAILY 12/19/17 03/16/21 Mometasone Furoate [Nasonex] 17 gm NS NEEDED PRN 12/19/17 03/16/21 Dicyclomine HCl [Bentyl 10mg 10 mg PO DAILY 01/15/21 03/16/21 capsule] Oxybutynin Chloride [Ditropan Xl] 10 mg PO DAILY 03/06/21 03/16/21 Previous Rx's Medication Instructions Recorded cephALEXin [Cephalexin 500mg Tab] 500 mg PO BID 7 Days #14 tab 07/08/21 Allergies Allergy/AdvReac Type Severity Reaction Status Date / Time peanut Allergy Severe Rash Verified 03/16/21 14:16 diclofenac [From Pennsaid] Allergy Mild itching Verified 03/16/21 14:16 amitriptyline Allergy Unknown HALLUCINATI Verified 03/16/21 14:16 ONS codeine Allergy Unknown HEADACHES Verified 03/16/21 14:16 dexamethasone Allergy Unknown MIGRAINES,I Verified 03/16/21 14:16 NSOMNIA latex Allergy Unknown ITCHING,HIV Verified 03/16/21 14:16 ES,SWELLING ,RASH hydromorphone [From Dilaudid] AdvReac Unknown SENSITIVE Verified 03/16/21 14:16 TO -NOT ALLERGIC [facility] History - Hepatitis A Screen Attestation statement:: This patient has been screened for Hepatitis A risk factors. I have reviewed the patient's past medical history: Yes Medical History: Reports:: Hypertension, Lung Disease ([place]-cpap), Kidney Stones
[2021-07-08 17:32] VITALS: BP 142/90; PULSE 58; RESP 16; TEMP 37.3; O2SAT 97
== END 2021-07-08 17:57 | disposition home or self-care (01) ==
PROVIDERS: Emergency Provider Nurse Practitioner Family; PCP Family Medicine
DX: S81.811A Laceration without foreign body, right lower leg, initial encounter (principal); W26.9XXA Contact with unspecified sharp object(s), initial encounter; Z23 Encounter for immunization; Y92.018 Other place in single-family (private) house as the place of occurrence of the external cause; I10 Essential (primary) hypertension; M79.7 Fibromyalgia; Z87.442 Personal history of urinary calculi; Z87.891 Personal history of nicotine dependence
CPT/HCPCS: 12002; 90471; 90715; 99202; G0463

== ENCOUNTER → 2021-07-30 07:53 | Outpatient (CLI) | payer OTHER, SELFPAY ==
--- NOTE | 2021-07-30 07:55 | MM_ITS ---
PROCEDURE: MM DIG SCREENING MAMM BI W/CAD Digital Breast Tomosynthesis Included CLINICAL INDICATION: SCREENING There is no personal or family history of breast cancer COMPARISON: MG DMSB DIG MAMM-SCREEN SHANEKA W/CAD from 10/10/2017 MG SCBI MM Dig screening mamm BI w/CAD from 11/26/2018 MG MM DIG SCREENING MAMM BI W/CAD from 04/06/2020 TECHNIQUE: Standard CC and MLO images and 3D Tomosynthesis was obtained. R2 CAD reviewed. FINDINGS: Breasts are composed primarily of minimal scattered fibroglandular densities each breast. There are multiple too numerous to count benign-appearing microcalcifications with a couple of benign-appearing macrocalcifications seen as well. There are few CAD markings on each breast and they were reviewed and appear to be benign. There is no suspicious lesion and no suspicious microcalcifications. IMPRESSION: Fatty type breast parenchyma with no suspicious lesions seen BI-RAD Category: 2 Benign Finding(s) FOLLOW-UP: 1YR 1 Year Follow-up (A letter has been sent to the patient regarding results of the study.) Dictated by: Dr. Jimbo Barney MD 08/03/2021 09:17 Dr. Jimbo Barney MD in [place] 08/03/2021 09:17
== END ==
PROVIDERS: PCP Family Medicine; Visit Provider Nurse Practitioner Family
DX: Z12.31 Encounter for screening mammogram for malignant neoplasm of breast (principal)
CPT/HCPCS: 77063; 77067

== ENCOUNTER → 2021-10-08 13:55 | Outpatient (CLI) | payer OTHER, SELFPAY ==
--- NOTE | 2021-10-08 14:05 | XR_ITS ---
PROCEDURE: XR KUB CLINICAL INDICATION: KIDNEY STONE COMPARISON: CR XR KUB from 03/16/2021 FINDINGS: Mild lumbar scoliosis convex left. 5 mm stone overlies the lower pole of the left kidney. No obvious ureteral calculi. Right hip prosthesis present. IMPRESSION: Left nephrolithiasis Dictated by: Dae Leos MD 10/08/2021 17:31 Dae Leos MD in [place] 10/08/2021 17:31
== END ==
PROVIDERS: PCP Family Medicine; Visit Provider Urology
DX: N20.0 Calculus of kidney (principal)
CPT/HCPCS: 74018

== ENCOUNTER → 2021-10-10 07:14 | Outpatient (CLI) | payer OTHER, SELFPAY ==
[2021-10-10 07:17] LABS: MANUAL DIFFERENTIAL MANUAL DIFFERENTIAL (MANUAL DIFF)
[2021-10-10 07:34] LABS: Basophils # 0.1 K/mm3 (0-0.2); Basophils % 0.9 % (0.1-2.0); Eosinophils # 0.3 K/mm3 (0.0-0.4); Eosinophils % 3.6 % (0.1-12.0); Hematocrit 48.6 % (37.0-47.0); Hemoglobin 15.9 g/dL (12.2-16.2); Lymphocytes # 1.8 K/mm3 (0.7-4.5); Lymphocytes % 25.1 % (10-50); Mean Corpuscular HGB Conc 32.7 g/dL (31.8-35.4); Mean Corpuscular Hemoglobin 32.3 pg (27.0-31.2); Mean Platelet Volume 7.8 fl (7.4-10.4); Monocytes # 0.5 K/mm3 (0.1-1.0); Monocytes % 6.4 % (1.7-9.3); Neutrophils # 4.7 K/mm3 (1.8-7.8); Platelet Count 261 K/mm3 (142-424); Red Blood Count 4.91 M/mm3 (4.20-5.40); Red Cell Distribution Width 13.8 % (11.5-17.5); White Blood Count 7.3 K/mm3 (4.8-10.8)
[2021-10-10 08:22] LABS: Eosinophils % 2 % (0-3); Lymphocytes % 26 % (10-50); Monocytes % 9 % (2-9); Neutrophils % 62 % (42-76); Total Cells Counted 100
[2021-10-10 08:23] LABS: Platelet Estimate Normal; RBC Morphology Normal
[2021-10-10 08:41] LABS: Anion Gap 7.2 mEq/L (5-15); Blood Urea Nitrogen 32 mg/dl (7-17); Calcium 9.3 mg/dl (8.4-10.2); Carbon Dioxide 34 mmol/L (22.0-30.0); Chloride 106 mmol/L (98-107); Estimated Glomerular Filt Rate 73 ml/min (>60); GFR (African American) 89 ML/MIN (>60); Glucose 88 mg/dl (74-100); Potassium 5.2 mmoL/L (3.5-5.1); Sodium 142 mmol/L (136-145)
== END ==
PROVIDERS: Visit Provider Urology
DX: Z01.812 Encounter for preprocedural laboratory examination (principal); Z11.52 Encounter for screening for COVID-19; N20.0 Calculus of kidney
CPT/HCPCS: 36415; 80048; 85007; 85014; 85018; 85048; 85049; C9803; U0003; U0005

== ENCOUNTER 2021-10-12 10:25 | Day surgery (SDC) | payer OTHER, SELFPAY ==
[2021-10-10 12:39] VITALS: BMI 33.5
[2021-10-12] VITALS (9 sets, daily range): BP systolic 110–169; BP diastolic 72–85; PULSE 52–70; RESP 12–18; TEMP 36.1–36.6; O2SAT 98–100
--- NOTE | 2021-10-12 11:01 | XR_ITS ---
PROCEDURE: XR KUB CLINICAL INDICATION: kidney stone COMPARISON: CT CT ABDOMEN PELVIS WO CON from 01/15/2021 FINDINGS: Gas pattern-The bowel gas pattern is unremarkable. No obvious obstruction. The small proximal left ureteral calculus seen on the previous CT scan abdomen and pelvis 01/15/2021 is not definitely seen. There are no other suspicious calculi in either kidney or along the course of either ureter. There are bilateral tubal ligation clips noted. There is a total right hip prosthesis seen. IMPRESSION: Previously noted proximal left ureteral calculus not seen on today's abdominal study Dictated by: Dr. Jimbo Barney MD 10/12/2021 11:21 Dr. Jimbo Barney MD in [place] 10/12/2021 11:21
--- NOTE | 2021-10-12 12:27 | HMH.ANESCL ---
[facility] Anesthesia Checklist - Structural Data Admitted From: Home Planned Operative Procedure/s: eswl Consent for Planned Operative Procedure(s) Verified: Yes - Additional verifications Anesthesia Reactions: Yes ( deathly sick need patch) Hx Blood Transfusions: No Blood Transfusion Reaction: No - Airway Assessment C-Spine Mobility Assessed: Yes TMJ Mobility Assessed: Yes Dentition: Good Dentition - Neurological Assessment Level of Consciousness: Awake, Alert, Appropriate - Anesthesia Plan Anesthesia Risk discussed: Yes Anesthesia Plan: Verified ASA Class: II Anesthesia Type: General [facility] History I have reviewed the patient's past medical history: Yes Medical History: Reports:: Hypertension, Lung Disease, Kidney Stones Denies:: Cancer, Diabetes Mellitus Type 1, Diabetes Mellitus Type 2, Internal Pacemaker, MRSA, Seizures *Have you ever received a pneumonia vaccine?: No *Have you received a flu vaccine this season?: No Other Medical History: Denies: Blood Transfusion Reaction Anesthesia experience/problems:: none Laterality Cases: Right: Arthroscopy Hip, Carpal Tunnel Release, Bilateral: Arthroscopy Knee Other Surgeries: Yes: No Previous Surgery, Appendectomy, Colonoscopy, Other. No: Pacemaker Amputation: No Fractures: No - *Social History Smoking Status: Never smoker Tobacco Type: cigarettes # Packs/Day (cigarettes): 0 #Yrs smoked (if former smoker): 0 Alcohol Intake: never Alcohol Intake Frequency:: 0-2 drinks per day Substance Use Type: denies use *Occupational Status:: employed Housing: house Household Members: spouse *Travel in the last 8 weeks: Inside the [facility] Family Hx:: Diabetes, Kidney Disease, Stroke
--- NOTE | 2021-10-12 12:29 | HMH.ANESI ---
[facility] Anesthesia Record Part I Intake, IV Amount: 1,000 Estimated blood loss (mL): 0 Urine output (mL): 0 Blood Pressure: 110/72 SaO2: 98 Pulse Rate: 67 Respiratory Rate: 12 Temperature: 97.8 F Patient is:: Awake, Stable Stable to PACU at:: 12:25
--- NOTE | 2021-10-12 12:38 | P.OP_ITS ---
Date of procedure: 10/12/21 Pre-op Diagnosis:: Left renal calculi x2 Post-op Diagnosis:: Same Procedure performed:: Left ESWL Surgeon:: Josh Arrieta MD STONE PRODUCT FABRICATOR:: Other (liliana) Anesthesia: LMA Estimated blood loss (mL): 0 Clinical Note:: Patient is a 60-year-old white female with a history of nephrolithiasis. She had some recent left renal colic while out of town and a CT scan in [place] showed an 8 mm stone at the left UPJ and a smaller 7 mm stone in the renal pelvis. KUB in the office last week showed that the previously noted UPJ stone was back into the renal pelvis and she has remained asymptomatic. Operative findings:: KUB today shows 2 stones very close together in the left renal pelvis. Operative note:: Patient taken to the operating suite after informed consent was obtained. She was placed on the operating table in the supine position and general anesthesia administered. Preoperative antibiotics and sequential compression devices placed. Her knees were flexed and her heels and elbows were padded appropriately. The focal point of the lithotripter was focused onto the 2 left renal calculi which were very close together. 3000 shockwaves delivered a maximum KV of 7. There was very good fragmentation of the stones. The patient tolerated the procedure well there are no complications. Condition: stable Disposition: PACU Specimens:: None Complications:: None
--- NOTE | 2021-10-15 07:12 | HMH.ANESII ---
[facility] Anesthesia Record Part II Discharge Time: 12:56 Destination: home PACU nurse assessment reviewed?: Yes Patient Condition:: Good Anesthesia Complications:: None none Swallowing reflex intact?: Yes Cyanosis?: No Blood Pressure: 150/83 Pulse Rate: 61 Temperature: 97.4 F Mental Status: Alert & Oriented Pain level:: 0 Nausea and/or vomitting:: None Intake, IV Amount: 0
[2021-10-15 07:14] VITALS: BP 150/83; PULSE 61; TEMP 36.3
== END 2021-10-12 13:26 | disposition home or self-care (01) ==
LOC: OR 10:26
PROVIDERS: PCP Family Medicine; Visit Provider Urology
PROC: (CPT 50590; principal; 2021-10-12 12:00)
DX: N20.0 Calculus of kidney (principal); I10 Essential (primary) hypertension; J98.4 Other disorders of lung; M19.90 Unspecified osteoarthritis, unspecified site; Z90.49 Acquired absence of other specified parts of digestive tract; Z83.3 Family history of diabetes mellitus; Z82.3 Family history of stroke; Z88.8 Allergy status to other drugs, medicaments and biological substances; Z88.6 Allergy status to analgesic agent; Z91.040 Latex allergy status; Z91.010 Allergy to peanuts; Z79.899 Other long term (current) drug therapy
CPT/HCPCS: 50590; 74018; 96374; J2405

== ENCOUNTER → 2021-10-19 13:13 | Outpatient (CLI) | payer OTHER, SELFPAY ==
--- NOTE | 2021-10-19 13:18 | XR_ITS ---
PROCEDURE: XR KUB CLINICAL INDICATION: kidney stone COMPARISON: CT CT ABDOMEN PELVIS WO CON from 01/15/2021 CR XR KUB from 10/08/2021 CR XR KUB from 10/12/2021 FINDINGS: Lumbar scoliosis convex left. Mild amount of overlying colonic feces. Faint opacity overlies the lower pole of the left kidney measuring approximately 6 mm possibly due to left renal stone. No obvious ureteral calculi. Bilateral tubal ligation clips are present. IMPRESSION: Left nephrolithiasis Dictated by: Dae Leos MD 10/19/2021 14:34 Dae Leos MD in [place] 10/19/2021 14:34
== END ==
PROVIDERS: PCP Family Medicine; Visit Provider Urology
DX: N20.0 Calculus of kidney (principal)
CPT/HCPCS: 74018

== ENCOUNTER → 2021-10-19 18:22 | Outpatient (CLI) | payer OTHER, SELFPAY | PROVIDERS: Visit Provider Urology | DX: N20.0 Calculus of kidney (principal) | CPT/HCPCS: 82370 ==

== ENCOUNTER 2022-07-24 09:36 | Outpatient (CLI) | payer OTHER, SELFPAY ==
[2022-07-24 10:05] VITALS: BP 133/82; PULSE 81; RESP 16; O2SAT 95
[2022-07-24 11:05] VITALS: BP 141/79; PULSE 71; RESP 16
[2022-07-24 12:05] VITALS: BP 139/73; PULSE 71; RESP 16
== END 2022-07-24 12:10 | disposition home or self-care (01) ==
LOC: INF 09:36
PROVIDERS: PCP Family Medicine; Visit Provider Family Medicine
DX: U07.1 COVID-19 (principal)
CPT/HCPCS: 96360; 96361

== ENCOUNTER → 2022-11-25 08:24 | Outpatient (CLI) | payer OTHER, SELFPAY ==
--- NOTE | 2022-11-25 08:27 | MM_ITS ---
PROCEDURE INFORMATION: Exam: MG Bilateral Screening 3D Mammography Exam date and time: 11/25/2022 8:21 AM Age: 62 years old Clinical indication: Screening mammogram TECHNIQUE: Imaging protocol: Bilateral Screening tomosynthesis and 2D mammography including computer-aided detection (CAD) when performed. COMPARISON: 1. MG MM DIG SCREENING MAMM BI W/CAD 07/30/2021 7:58 AM 2. MG MM DIG SCREENING MAMM BI W/CAD 04/06/2020 8:22 AM 3. MG SCBI MM Dig screening mamm BI w/CAD 11/26/2018 9:59 AM 4. MG DMSB DIG MAMM-SCREEN [place]ANEKA W/CAD 10/10/2017 8:39 AM FINDINGS: MAMMOGRAPHY: Breast composition: There are scattered areas of fibroglandular density. Mass: None. Architectural distortion: No new or suspicious architectural distortion. Calcifications: Stable benign-appearing calcifications are present. No new or suspicious cluster of microcalcifications have developed. Asymmetric density: No new or suspicious asymmetric density is present Skin thickening: None. Axillary adenopathy: None. IMPRESSION: No mammographic evidence of malignancy. Recommend annual screening mammography unless otherwise clinically indicated. ASSESSMENT: BI-RADS category 2: Benign
== END ==
PROVIDERS: PCP Family Medicine; Visit Provider Nurse Practitioner Family
DX: Z12.31 Encounter for screening mammogram for malignant neoplasm of breast (principal)
CPT/HCPCS: 77063; 77067

== ENCOUNTER 2024-01-07 15:49 | Outpatient (CLI) | payer BC, SELFPAY ==
--- NOTE | 2024-01-07 16:01 | XR_ITS ---
FINAL REPORT CLINICAL HISTORY: LT LOWER QUADRANT ABDOMINAL PAIN hx of stones COMPARISON: None FINDINGS: A single supine view the abdomen was obtained. The bowel gas pattern is nonspecific but nonobstructive. There is a moderate amount of stool present in the colon. There is a 5 mm left renal stone present. Postoperative changes are identified in the right hip. There is degenerative change of the lumbar spine with an S-shaped scoliosis.. Osseous structures are within normal limits. IMPRESSION: Nonspecific but nonobstructive bowel gas pattern with a moderate stool burden. 5 mm left renal stone. Reviewed, Interpreted and Dictated by Jesús Avalos III, MD Transcribed by Alicia Colon Authenticated and [facility]
== END 2024-01-07 23:59 ==
LOC: RAD 15:52
PROVIDERS: PCP Nurse Practitioner; Visit Provider Nurse Practitioner
DX: R10.32 Left lower quadrant pain (principal)
CPT/HCPCS: 74018

== ENCOUNTER 2024-01-28 12:00 | Outpatient (RCR) | payer BC, OTHER, SELFPAY | END 2024-01-28 17:30 | disposition home or self-care (01) | LOC: PT 12:00 | PROVIDERS: PCP Family Medicine; Visit Provider Internal Medicine Infectious Disease | DX: L90.5 Scar conditions and fibrosis of skin (principal); L03.115 Cellulitis of right lower limb | CPT/HCPCS: 29580; 97140; 97163; 97164; 97597 ==

== ENCOUNTER 2024-04-28 07:57 | Outpatient (CLI) | payer BC, SELFPAY ==
--- NOTE | 2024-04-28 08:08 | MM_ITS ---
PROCEDURE INFORMATION: Exam: MG Bilateral Screening 3D Mammography Exam date and time: 04/28/2024 7:57 AM Age: 63 years old Clinical indication: Screening examination TECHNIQUE: Imaging protocol: Bilateral Screening tomosynthesis and 2D mammography including computer-aided detection (CAD) when performed. COMPARISON: 1. MG MM DIG SCREENING MAMM BI W/CAD 11/25/2022 8:21 AM 2. MG MM DIG SCREENING MAMM BI W/CAD 07/30/2021 7:58 AM FINDINGS: MAMMOGRAPHY: Breast composition: There are scattered areas of fibroglandular density. Mass: None. Architectural distortion: None. Calcifications: No suspicious calcifications. Asymmetric density: None. Skin thickening: None. Axillary adenopathy: None. IMPRESSION: No mammographic evidence of malignancy. Annual screening is recommended unless otherwise clinically indicated. ASSESSMENT: BI-RADS Category 1: Negative
== END 2024-04-28 23:59 | disposition home or self-care (01) ==
LOC: RAD 07:57
PROVIDERS: PCP Nurse Practitioner; Visit Provider Nurse Practitioner
DX: Z12.31 Encounter for screening mammogram for malignant neoplasm of breast (principal)
CPT/HCPCS: 77063; 77067

== ENCOUNTER 2024-10-25 16:09 | Outpatient (CLI) | payer BC, SELFPAY ==
--- NOTE | 2024-10-25 16:13 | XR_ITS ---
PROCEDURE INFORMATION: Exam: XR Abdomen Exam date and time: 10/25/2024 4:14 PM Age: 64 years old Clinical indication: Condition or disease; Other: Kidney stone TECHNIQUE: Imaging protocol: Radiologic exam of the abdomen. Views: Frontal supine view of the abdomen. 1 View. COMPARISON: CR XR KUB 01/07/2024 4:04 PM FINDINGS: Gastrointestinal tract: Normal. No bowel dilation. Bones/joints: Complete right hip arthroplasty without complications. Stable mild lumbar levocurvature. Other findings: Stable position to a 7 mm stone projecting over the left renal shadow. IMPRESSION: Stable position to a 7 mm stone projecting over the left renal shadow. In keeping with a known left renal stone.
== END 2024-10-25 23:59 | disposition home or self-care (01) ==
LOC: RAD 16:10
PROVIDERS: PCP Nurse Practitioner; Visit Provider Family Medicine
DX: N20.0 Calculus of kidney (principal)
CPT/HCPCS: 74018

== ENCOUNTER 2025-01-03 15:42 | Outpatient (CLI) | payer BC, SELFPAY ==
--- NOTE | 2025-01-03 15:48 | XR_ITS ---
FINAL REPORT CLINICAL HISTORY: LEFT FOOT PAIN COMPARISON: None FINDINGS: LEFT FOOT Three views demonstrate no acute fracture or dislocation. The joint spaces appear normal. No acute soft tissue abnormality is seen. There is a sideplate and screws fusing the first MTP. There is a single orthopedic screw securing the second PIP. A small accessory navicular is noted. There is a moderate plantar spur. IMPRESSION: No acute bony abnormality. Small accessory navicular and moderate plantar spur. Reviewed, Interpreted and Dictated by Mateusz Burroughs MD Transcribed by Dawn Aquino Authenticated and [facility]
== END 2025-01-03 23:59 | disposition home or self-care (01) ==
LOC: RAD 15:44
PROVIDERS: PCP Nurse Practitioner; Visit Provider Nurse Practitioner
DX: M79.672 Pain in left foot (principal)
CPT/HCPCS: 73630

== ENCOUNTER 2025-02-25 13:41 | Outpatient (CLI) | payer BC, SELFPAY ==
--- NOTE | 2025-02-25 13:47 | XR_ITS ---
FINAL REPORT TECHNIQUE: Chest PA & Lateral CLINICAL HISTORY: Shortness of breath COMPARISON: None FINDINGS: 2 views of the chest were performed. The heart size is normal. The mediastinum is within normal limits. The lungs are underinflated. There is a calcified granuloma in the left midlung. There is no acute cardiopulmonary process. There are no pleural effusions. There is no pneumothorax. The bony thorax appears intact. IMPRESSION: No acute cardiopulmonary process. Reviewed, Interpreted and Dictated by Mateusz Burroughs MD Transcribed by Dawn Aquino Authenticated and [facility]
== END 2025-02-25 23:59 | disposition home or self-care (01) ==
LOC: RAD 13:42
PROVIDERS: PCP Nurse Practitioner; Visit Provider Nurse Practitioner
DX: Z01.818 Encounter for other preprocedural examination (principal); R06.02 Shortness of breath
CPT/HCPCS: 71046

== ENCOUNTER 2025-03-16 10:11 | Day surgery (SDC) | payer BC, SELFPAY ==
[2025-03-16] VITALS (9 sets, daily range): BP systolic 128–160; BP diastolic 73–92; PULSE 64–79; RESP 16–18; TEMP 36.6–43; O2SAT 91–98; BMI 33.7
[2025-03-16] MEDS: LACTATED RINGERS 1000ML 1,000 ML 50 ML IV (10:50)
[2025-03-16] MEDS: CEFAZOLIN SODIUM 2 GM in 0.9 % SODIUM CHLORIDE 100 ML IV (11:33)
--- NOTE | 2025-03-16 11:36 | EXP.OP.NOTE ---
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 Left foot pain Painful retained orthopedic hardware Left foot osteoarthritis, HIPJ exostosis Post-op Diagnosis:: Same Procedure performed:: Revision of non-union (92979) Left 1st MTPJ arthrodesis (82095) Calcaneal autograft harvest () Left foot hardware removal (), bone biopsy () Left foot exostectomy (HIPJ) Graft application Surgeon:: Mony Peterson DPM CHEMICAL DEPENDENCY NURSE:: Other (Chloé Liang) Anesthesia: GETA and regional (popliteal, adductor canal) Estimated blood loss (mL): 20 Clinical Note:: Patient is a 64-year-old patient who underwent left first MTPJ fusion with second PIPJ fusion on 10/22/2017. She did have screw backing out and had hardware removed with a bone biopsy on 12/19/2017. The bone biopsy and cultures were negative for osteomyelitis. Rest of the postop course was uncomplicated. Patient more recently began having pain to the site. Recent x-rays and CT show nonunion first MTPJ with hardware loosening. Discussed surgical options: 1) remove 1st MPTJ screw/plate, clean out joint and leave as is. 2) discussed 1st MTPJ total joint implant arthroplasty. 3) HWR with revision of 1st MTPJ fusion (new hardware). We discussed risks and benefits of each of those options. Patient would like to revise the fusion so the toe does not move. Patient has tried and failed conservative care including modification of activity, modification of shoe gear, ice, elevation, NSAIDs. She now has a screw that is tenting the skin is starting to back out which can cause numerous issues including skin breakdown, open wound and infection. Patient has elected to proceed with surgery because they have failed conservative treatment and continue to have pain and worsening symptoms affecting daily activities. The patient has been instructed on the planned procedure, all risk versus benefits of the procedure discussed. Discussion made to stage the surgery to evaluate for AVN and rule out osteomyelitis prior to revision. She did not want this option. Discussed once hardware is removed if the joint appears infected, will not proceed with revision, she understood. However given her history of hardware removal with negative bone biopsy/culture, patient feels comfortable to proceed without staged surgery. Discussed increased risk of skin and wound healing due to revision nature of the surgery. Discussed increased risks of non-union, infection/wound dehiscence risk due to multiple surgeries thru the same incision. Discussed risk of nonunion due to history of nonunion. Other risks include but are not limited to: bleeding, infection, nerve and blood vessel damage, need for further surgery, delay in healing of soft tissue or bone, failure of bones to heal, non-union, mal-union, failure of the implant/need for implant removal, prolonged/permanent swelling/pain and recovery, CPRS/RSD, DVT/PE and anesthetic complications including . No guarantees were given. All questions fully answered. The patient verbalized understanding and agreed to proceed with surgery. Written consent was obtained.Medical clearance obtained. Operative findings:: History of first MTPJ fusion to the left foot. Palpable screw head noted over the dorsal distal proximal phalanx. Skin tented at this area but no full thickness open wound. There was broken screws noted to the distal fusion site. No purulence malodor or drainage. There was some fibrosis at the fusion but a nonunion was noted. All plates and screws were removed, sent for hardware culture. Once the hardware was removed in total, the first MTPJ did have some motion. The motion was restricted secondary to fibrotic scar tissue and fibrosis within the fusion site. A piece of the first MTPJ bone was sent for bone culture and pathology to rule out deep infection although no obvious signs of osteomyelitis were noted. Sesamoids were noted to be arthritic. There was dorsal spurring at the head of the proximal phalanx and base of the distal phalanx. Dorsal exostosis was resected. Wounds flushed with gentamicin irrigation. Due to this being a revisional surgery and the third time through the same incision, skin was very fragile. Decision made at the end of the case to utilize amniotic graft to prevent adhesion of the scar tissue, soft tissue to the plate and subcutaneous tissue to the skin, as well as to prevent wound dehiscence. Operative note:: On this date and time patient was deemed an appropriate surgical candidate. With informed consent signed, the patient was taken to the operating theater after regional popliteal/adductor canal nerve block by anesthesia. Patient was positioned supine. General anesthesia was induced. IV Ancef given. Tourniquet was applied to the left mid-calf @225mmHg. The left lower extremity was prepped and draped in normal sterile fashion. Left calcaneal autograft bone harvest: Attention was directed to the lateral foot where intraoperative fluoroscopy was utilized to map out a percutaneous vision on the lateral calcaneus. Dissection was carried down full-thickness to the heel. The Vilex bone graft harvest system utilized to take 8 mm of bone from the calcaneus. Area was flushed. Nylonl used to reapproximate the skin. Left foot exostectomy: Attention was directed distally to the HIPJ, where incision was made full-thickness down to the level of the bone. Ronguer and power rasp was used to remove dorsal spurring from distal phalanx and head of the proximal phalanx. A piece of the amniotic cord membrane was cut and laid into the HIPJ to prevent scar tissue adhesions and allow for smooth HIPJ range of motion. Left foot hardware removal, bone biopsy: Incision made from the HIPJ incision extending proximal over previous scar. Full-thickness dissection performed with care to maintain surgical hemostasis and safely retract neurovascular structures. Very thin skin with little subcutaneous tissue was noted. Palpable screw head noted over the dorsal distal proximal phalanx. All screws in the plate were removed without complication. Hardware sent for culture. Although no obvious signs of infection, piece of the bone at the level of the first MTPJ was sent for bone culture and pathology. Gentamicin irrigation was used to flush the incision and fusion site. Left first MTPJ arthrodesis, revision of nonunion: The tourniquet was inflated at 225 mmHg. Soft tissue surrounding the first MTPJ was released. A McGlamry elevator was used to pass underneath the metatarsal heads releasing more of the contracture and adhesions from the sesamoids plantarly. No cartilage noted due to prior fusion surgery. Utilizing hand instrumentation in the form of rongue and curette, the fibrotic scar tissue and nonviable nonunion bone was resected. Next utilizing osteotome and curettes the base of the proximal phalanx and the metatarsal head were prepared. The wound was flushed with copious amounts of saline with gentamicin irrigation. Utilizing 1.6mm drill the bones were fenestrated. Joint was prepped down to the level of good healthy cancellous bleeding bone. Power rasp was used to smooth the joint and remaining spurring and dorsal bone irregularity from prior hardware. The wound was flushed with copious amounts of saline with gentamicin irrigation. The autograft calcaneus bone graft was then inserted into the joint. At this point, the joint was reduced and temporary fixation inserted. Position was checked under intra-op fluoroscopy. Due to the Monegasque cheese appearance from prior hardware removals, decision was made to pack the screw holes with allograft. Vilex 1st MTPJ locking plate was inserted in standard technique. 3.5mm screws x 2 were inserted distally into the proximal phalanx. This was followed by a 3.5mm compression screw to the proximal metatarsal which did compress plate to the bone, followed by 4 x 3.5mm screws. Compression noted across the fusion site. Good apposition and position of hardware was noted. X-ray confirmed position and hardware stable. The remaining portion of the allograft was packed around the fusion site. 15 blade was used to resect the redundant nonviable tissue dorsal medial. Graft application: Due to the revisional nature of the surgery and lack of subcutaneous tissue combined with thin fragile skin, decision made to insert a piece of amniotic cord graft over the plate prior to closure. Vicryl was used to close deep and subcutaneous tissue in a running fashion. The remaining piece of graft was inserted prior to skin closure to prevent scar contracture and wound dehiscence. 3-0 Nylon was used to close skin. Skin cleansed. The tourniquet was deflated after 94 mins and immediate hyperemic response was noted to the digits. The wounds were cleansed. Xeroform, Betadine soaked gauze, dry sterile dressing was then applied. The patient was awoken from anesthesia and transferred to recovery with vital signs stable and neurovascular status intact. Patient appeared to tolerate procedure and anesthesia well without complication. Materials: Vilex revision 1st MTPJ plate (62mm) and 3.5mm locking screws x5, 3.5mm non locking screw x1, [place] DBM Crunch x1 (5cc), [place] cord membrane x1 (3x8cm) Discharge/Plan: D/C home today when ready and vital signs stable. Patient is to maintain dressing clean dry and intact. Ice top of ankle (avoid ice directly to forefoot due to risk of blood vessel constriction) and elevate on two pillows. Polar pack behind knee. NWB to the LLE with DME. Okay to PWB in the fracture boot to the heel with walker for shorter distances and transfers. Rx for [place], Gabapentin, Doxy, Zofran given. Continue weekly vitamin D supplement. Obtain post op films, left foot, 3 views. Follow up with Podiatry [employer] [employer] in 1 week for skin check, dressing change. Follow up with me in 2 weeks for skin check and possible suture removal. Tourniquet time (min): 94 Condition: stable Disposition: same day Specimens:: Left foot hardware culture Left 1st MTPJ bone culture Left 1st MTPJ bone path Left 1st MTPJ bone tissue path Complications:: None
--- NOTE | 2025-03-16 11:38 | P.PNANES_ITS ---
[facility] Disclaimer: The information contained in this section may have been updated after the patient was seen, as this information can be updated by other users. Medical History YOANA on CPAP Sleep apnea Fibromyalgia Migraines Arthritis Kidney stone Hypertension Bunion Hammer toe Surgical History History of cardiac cath H/O right wrist surgery RIGHT WRIST FUSION History of carpal tunnel surgery of right wrist History of bilateral knee replacement History of bilateral knee arthroplasty History of colonoscopy H/O tubal ligation History of right hip replacement Hx of appendectomy S/P cystoscopy with ureteral stent placement Family History Other Family history of diabetes mellitus type II Family history of stroke Heart disease Kidney disease Social History Smoking Status: Former smoker tobacco type: cigarettes packs per day: 0 second hand exposure: No alcohol intake: never counseling provided: provider counseling substance use type: denies use current occupational status: employed Travel in the last 8 weeks: None household members: spouse housing: house 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 current occupational exposures/hazards: No caffeine: Yes Have you lived/traveled outside [place] in past 30 days?: No Contact w/someone who lives/traveled outside US past 30 days?: No Exposure to someone with infectious disease in past 14 days?: No Do you have a fever (greater than 100.4 F or 38 C)?: No Have you tested positive for COVID-19: No Exposed to someone with COVID-19 in past 14 days?: No Do you have a sore throat?: No Do you have a cough?: No Do you have any weakness?: No Do you have any diarrhea?: No Are you experiencing any unusual bleeding?: No Do you have any muscle aches/pain?: No Do you have any abdominal pain?: No Are you experiencing loss of taste or smell?: No [facility] Anesthesia Checklist Patient Identification Patient Identification: Arm Band Structural Data Admitted From: Home Planned Operative Procedure/s: Left Foot Hardware Removal Consent for Planned Operative Procedure(s) Verified: Yes Verified Documents: Surgical Consent and History and Physical NPO Status Verified Time NPO: 00:00 Additional verifications Anesthesia Reactions: Yes ( deathly sick need patch) Hx Blood Transfusions: No Blood Transfusion Reaction: No Airway Assessment Mallampati Score:: Class II C-Spine Mobility Assessed: Yes TMJ Mobility Assessed: Yes Dentition: Good Dentition Neurological Assessment Level of Consciousness: Awake, Alert and Appropriate Anesthesia Plan Anesthesia Risk discussed: Yes Anesthesia Plan: Verified ASA Class: II Anesthesia Type: General w/block (Left Popliteal/Adductor Canal Nerve Blocks. Risks/benefits explained. Pt verbalized understanding)
[2025-03-16] MEDS: GENTAMICIN 80 MG/2 ML VIAL (11:58)
--- NOTE | 2025-03-16 13:57 | XR_ITS ---
FINAL REPORT CLINICAL HISTORY: s/p revision 1st MTPJ fusion fluoro time: .25 .31 mgy FINDINGS: FLUOROSCOPY LESS THAN 1 HOUR HISTORY: Fluoroscopy guidance. Fluoroscopic guidance was provided for first MTP joint fusion revision. 2 spot films were obtained. A total of 0:25 minutes of fluoroscopy time were used. Total DAP: 0.31 mGy IMPRESSION: As above. Reviewed, Interpreted and Dictated by Sola Guerra MD Transcribed by Cindy Torres Authenticated and . [facility]
--- NOTE | 2025-03-16 14:33 | EXP.ANES.I ---
[facility] Anesthesia Record Part I Anesthesia Record I Intake, IV Amount: 1,200 Hydration: Adequate Estimated blood loss (mL): 20 Urine output (mL): 0 Blood Products used (#): none Blood Pressure: 146/86 SaO2: 92 Pulse Rate: 74 Airway Patency: Patent Respiratory Rate: 18 Temperature: 98.1 F Patient is:: Awake and Stable Stable to PACU at:: 14:35
--- NOTE | 2025-03-16 15:00 | XR_ITS ---
FINAL REPORT TECHNIQUE: Left foot 3 views CLINICAL HISTORY: s/p revision 1st MTPJ fusion postop COMPARISON: 01/03/2025 FINDINGS: LEFT FOOT: 3 images of the left foot were obtained. By history, the patient has undergone revision of the fusion of the first MTP joint. There is a plate with screws bridging the first MTP joint, which is significantly longer proximally than the initial sideplate. There is no evidence of fracture or dislocation. There is subcutaneous edema from recent surgery, with small pockets of subcutaneous air. The screws again noted in the second PIP joint, unchanged in appearance. IMPRESSION: Revision of the fusion of the first MTP joint as described above. Reviewed, Interpreted and Dictated by Mateusz Burroughs MD Transcribed by Alicia Colon Authenticated and [facility]
--- NOTE | 2025-03-17 07:34 | P.PNANES_ITS ---
[facility] Anesthesia Record Part II Anesthesia Record Part II Discharge Time: 14:55 Destination: Surgical Day Care (OP Surgery) PACU nurse assessment reviewed?: Yes Patient Condition:: Good Anesthesia Complications:: None Swallowing reflex intact?: Yes Airway Patency: Patent Cyanosis?: No Blood Pressure: 133/84 SaO2: 96 Respiratory Rate: 18 Pulse Rate: 71 Temperature: 98.1 F Mental Status: Alert & Oriented Pain level:: 0 Nausea and/or vomitting:: None Intake, IV Amount: 0 Hydration: Adequate
[2025-03-17 07:39] VITALS: BP 133/84; PULSE 71; RESP 18; TEMP 36.7; O2SAT 96
== END 2025-03-16 15:37 | disposition home or self-care (01) ==
PROVIDERS: PCP Nurse Practitioner; Visit Provider Podiatrist
PROC: (CPT 20680; principal; 2025-03-16 11:45)
DX: T84.84XA Pain due to internal orthopedic prosthetic devices, implants and grafts, initial encounter (principal); M96.0 Pseudarthrosis after fusion or arthrodesis; M79.672 Pain in left foot; E66.811 Obesity, class 1; Z68.31 Body mass index [BMI] 31.0-31.9, adult; Z79.899 Other long term (current) drug therapy; Z91.040 Latex allergy status; Z91.010 Allergy to peanuts; Z88.5 Allergy status to narcotic agent; Z88.8 Allergy status to other drugs, medicaments and biological substances; Z87.891 Personal history of nicotine dependence
CPT/HCPCS: 20680; 28322; 28750; 73620; 73630; 76000; 87070; 87077; 87186; 87205; 88304; 96374; C1713; C1776; J0690; J1100; J1580; J2250; J2405; J2704; J3010; J7120

== ENCOUNTER 2025-04-11 15:20 | Outpatient (CLI) | payer BC, SELFPAY ==
--- NOTE | 2025-04-11 | US_ITS ---
FINAL REPORT CLINICAL HISTORY: CLAUDICATION,EX SMOKER,PT HAD LT GREAT TOE/FOOT SURGERY IN MARCH-WOUND NOT HEALING COMPARISON: None FINDINGS: ANKLE-BRACHIAL PRESSURE INDICES Pressure indices are as follows: RIGHT LOWER EXTREMITY: Ankle-brachial pressure index: 1.3 Comments: Normal LEFT LOWER EXTREMITY: Ankle-brachial pressure index: 1.05 Comments: Normal CONCLUSION: No evidence of significant obstructive peripheral vascular disease of the lower extremities Reviewed, Interpreted and Dictated by Mateusz Burroughs MD Transcribed by Alicia Colon Authenticated and [facility]
== END 2025-04-11 23:59 | disposition home or self-care (01) ==
LOC: RT 15:21
PROVIDERS: PCP Nurse Practitioner; Visit Provider Podiatrist
DX: R09.89 Other specified symptoms and signs involving the circulatory and respiratory systems (principal)
CPT/HCPCS: 93923

== ENCOUNTER 2025-04-13 15:48 | Outpatient (CLI) | payer BC, SELFPAY ==
--- NOTE | 2025-04-13 15:52 | XR_ITS ---
FINAL REPORT CLINICAL HISTORY: s/p left foot surgery, eschar COMPARISON: 03/16/2025 FINDINGS: LEFT FOOT Three views of the left foot demonstrate a sideplate and screws securing the first metatarsal phalangeal joint. There is an orthopedic screw in the second PIP joint. The hardware appears intact. No acute fracture or dislocation. The visualized joint spaces are normally aligned. A moderate plantar spur is noted. There is an accessory navicular. The soft tissues are unremarkable. IMPRESSION: Postsurgical changes with intact hardware. No change from prior. No acute bony abnormality. Reviewed, Interpreted and Dictated by Mateusz Burroughs MD Transcribed by Cindy Torres Authenticated and [facility]
== END 2025-04-13 23:59 | disposition home or self-care (01) ==
LOC: RAD 15:49
PROVIDERS: PCP Nurse Practitioner; Visit Provider Podiatrist
DX: T81.31XA Disruption of external operation (surgical) wound, not elsewhere classified, initial encounter (principal)
CPT/HCPCS: 73630; 87070; 87077; 87186; 87205

== ENCOUNTER 2025-04-26 09:37 | Emergency (ER) | payer BC, SELFPAY ==
[2025-04-26] VITALS (7 sets, daily range): BP systolic 111–172; BP diastolic 71–86; PULSE 61–69; RESP 20; TEMP 36.6–36.8; O2SAT 95–100; BMI 31.3
--- NOTE | 2025-04-26 09:59 | XR_ITS ---
FINAL REPORT CLINICAL HISTORY: new purulent infection COMPARISON: 04/13/2025 FINDINGS: LEFT FOOT Three views were obtained. There is sideplate and screws securing the first metatarsal phalangeal joint. Bone/fusion graft material is seen at the first MTP joint. Orthopedic screw is seen securing the second PIP joint. There is a moderate plantar spur. IMPRESSION: Postsurgical changes as above. Reviewed, Interpreted and Dictated by Mateusz Burroughs MD Transcribed by Heather Saldivar Authenticated and . [facility]
--- NOTE | 2025-04-26 09:59 | XR_ITS ---
FINAL REPORT CLINICAL HISTORY: fall, midline L spine pain. neuro intact FINDINGS: LUMBAR SPINE Three views were obtained. There is no acute fracture. The disc spaces are well-preserved. There is grade 1 spondylolisthesis of L4 on 5 with advanced facet sclerosis in the lower lumbar spine. There is an 8 mm stone in projection of the lower pole left kidney. There is a 15 degree lumbar scoliosis convex to the left. IMPRESSION: Degenerative changes as above. Reviewed, Interpreted and Dictated by Mateusz Burroughs MD Transcribed by Heather Saldivar Authenticated and [facility]
--- NOTE | 2025-04-26 10:12 | [facility].EDGENADL ---
Discharge Plan Disposition Patient Disposition: Home, Self-Care Chief Complaint: PAIN Prescriptions Prescriptions: No Action montelukast 10 mg tablet 10 mg PO DAILY 30 Days Qty: 30 Patient Comments: losartan 25 mg tablet 25 mg PO DAILY 30 Days Qty: 30 Patient Comments: metoprolol tartrate 100 mg tablet 100 mg PO DAILY 30 Days Qty: 60 Patient Comments: sumatriptan succinate 100 mg tablet 100 mg PO NEEDED PRN (Reason: migraines) 34 Days Qty: 10 Patient Comments: furosemide 40 mg tablet 40 mg PO NEEDED PRN (Reason: fluid) 45 Days Qty: 90 Patient Comments: tamsulosin 0.4 mg capsule 0.4 mg PO DAILY venlafaxine 37.5 mg capsule,extended release 24hr 37.5 mg PO ONCE omeprazole 20 mg capsule,delayed release(DR/EC) 20 mg PO DAILY diclofenac potassium 50 mg tablet 50 mg PO DAILY dicyclomine 20 mg tablet 20 mg PO ONCE Santyl 250 unit/gram ointment 1 applic topical QDAY Qty: 30 1RF cholecalciferol (vitamin D3) 1,250 mcg (50,000 unit) capsule 1,250 mcg PO WEEKLY 90 Days Qty: 13 3RF hydrocodone-acetaminophen 7.5-325 mg tablet 1 tab PO Q4-6H PRN (Reason: post op pain) 7 Days Qty: 30 0RF ondansetron 4 mg tablet,disintegrating 4 mg PO Q6H PRN (Reason: nausea and vomiting) Qty: 30 2RF gabapentin 100 mg capsule 100 mg PO TID PRN (Reason: nerve pain) 10 Days Qty: 30 0RF gentamicin 0.1 % cream 1 applic topical TID 14 Days Qty: 30 2RF levofloxacin 750 mg tablet 750 mg PO DAILY 10 Days Qty: 10 0RF potassium citrate 10 MEQ tablet extended release 10 meq PO DAILY fluticasone propionate 50 mcg/actuation spray,suspension 1 spray intranasal DAILY PRN (Reason: allergies) allopurinol 100 MG tablet 300 mg PO DAILY loratadine 10 MG capsule 10 mg PO DAILY Referrals Follow up/Referrals: Lesly Rice APRN [Primary Care Provider] - See instructions Activity Restrictions/Add. Instructions Additional Instructions/Restrictions: Call your family doctor to establish care for this visit to the emergency department and schedule follow-up within 48 hours to ensure improvement. If you have any worsening of your condition or any other concerning signs or symptoms, return to the emergency department or your primary care doctor for further evaluation. Continue taking your antibiotics as Clinical Impressions Clinical Impression: Encounter for medical assessment, Wound of foot Print Language Print Language: Swazi Discharge ED Provider: Enzo Deras General Adult HPI General Chief complaint: PAIN Stated complaint: AO Fall 04/26 0610 post op l.foot Time Seen by Provider: 04/26/25 09:42 Mode of Arrival: Wheelchair Source of Information: Patient Description of Symptoms (Recalled from ER Triage Doc. by RN): pt to the ED with lower back pain after losing her balance trying to put items into her car. pt reports chronic back pain but reports it hurting worse since her fall. pt also reports pain and swelling to her left foot where she had surgery History of Present Illness HPI narrative: Please note that above description of symptoms, in this electronic medical record under categorization of recalled from ER triage doctor by RN are reflective of an initial nursing assessment, however, is not reflective of my full history and physical exam that was personally taken and clarified. Consequentially, this preceding description of symptoms, which may include the patient's categorized chief complaint in the EMR, do not reflect my personal clinical impression, and the ultimate description of history of present illness and patient stated complaints should be deferred to this section of the note. Unless stated otherwise or congruent with this section of the note, additional signs, symptoms, or incongruence should be interpreted as inaccurate with my clinical impression. Related Data Home Medications ?Medication ?Instructions ?Recorded ?Confirmed furosemide 40 mg tablet 40 mg PO NEEDED PRN fluid 45 12/15/17 04/21/25 days ##90 losartan 25 mg tablet 25 mg PO DAILY blood pressure 30 12/15/17 04/21/25 days ##30 metoprolol tartrate 100 mg tablet 100 mg PO DAILY heart 30 days ##60 12/15/17 04/21/25 montelukast 10 mg tablet 10 mg PO DAILY Breathing problems 12/15/17 04/21/25 30 days ##30 sumatriptan succinate 100 mg tablet 100 mg PO NEEDED PRN migraines 12/15/17 04/21/25 34 days ##10 allopurinol 100 mg tablet 300 mg PO DAILY gout 12/18/17 04/21/25 loratadine 10 mg capsule 10 mg PO DAILY allergies 12/19/17 04/21/25 potassium citrate 10 mEq (1,080 10 meq PO DAILY Supplement 10/10/21 04/21/25 mg) tablet,extended release diclofenac potassium 50 mg tablet 50 mg PO DAILY 01/06/25 04/21/25 dicyclomine 20 mg tablet 20 mg PO ONCE 01/06/25 04/21/25 fluticasone propionate 50 1 spray intranasal DAILY PRN 01/06/25 04/21/25 mcg/actuation nasal allergies spray,suspension omeprazole 20 mg capsule,delayed 20 mg PO DAILY 01/06/25 04/21/25 release tamsulosin 0.4 mg capsule 0.4 mg PO DAILY 01/06/25 04/21/25 venlafaxine 37.5 mg 37.5 mg PO ONCE 01/06/25 04/21/25 capsule,extended release 24 hr Previous Rx's ?Medication ?Instructions ?Recorded cholecalciferol (vitamin D3) 1,250 1,250 mcg PO WEEKLY vitamin D 3 03/02/25 mcg (50,000 unit) capsule months #13 caps hydrocodone 7.5 mg-acetaminophen 1 tab PO Q4-6H PRN post op pain 7 03/15/25 325 mg tablet days #30 tabs ondansetron 4 mg disintegrating 4 mg PO Q6H PRN nausea and 03/15/25 tablet vomiting #30 tabs gabapentin 100 mg capsule 100 mg PO TID PRN nerve pain 10 04/04/25 days #30 caps collagenase clostridium histo. 250 1 applic topical QDAY wound care 04/07/25 unit/gram topical ointment (Santyl) #30 grams gentamicin 0.1 % topical cream 1 applic topical TID wound 2 weeks 04/18/25 #30 grams levofloxacin 750 mg tablet 750 mg PO DAILY Infection 10 days 04/26/25 #10 tabs Allergies Allergy/AdvReac Type Severity Reaction Status Date / Time peanut Allergy Severe Rash Verified 04/14/25 08:34 chlorhexidine Allergy Mild itching Verified 04/14/25 08:34 diclofenac (From [place]) Allergy Mild itching Verified 04/14/25 08:34 amitriptyline Allergy Unknown HALLUCINATI Verified 04/14/25 08:34 ONS codeine Allergy Unknown HEADACHES Verified 04/14/25 08:34 dexamethasone Allergy Unknown MIGRAINES,I Verified 04/14/25 08:34 NSOMNIA latex Allergy Unknown ITCHING,HIV Verified 04/14/25 08:34 ES,SWELLING ,RASH hydromorphone (From Dilaudid) AdvReac Unknown SENSITIVE Verified 04/14/25 08:34 TO -NOT ALLERGIC PFSH [facility] Disclaimer: The information contained in this section may have been updated after the patient was seen, as this information can be updated by other users. Medical History Rheumatoid arthritis YOANA on CPAP Sleep apnea Fibromyalgia Migraines Arthritis Kidney stone Hypertension Bunion Hammer toe Surgical History History of cardiac cath H/O right wrist surgery RIGHT WRIST FUSION History of carpal tunnel surgery of right wrist History of bilateral knee replacement History of bilateral knee arthroplasty History of colonoscopy H/O tubal ligation History of right hip replacement Hx of appendectomy S/P cystoscopy with ureteral stent placement Family History Other Family history of diabetes mellitus type II Family history of stroke Heart disease Kidney disease Social History Smoking Status: Never smoker second hand exposure: No alcohol intake: never counseling provided: provider counseling substance use type: denies use current occupational status: employed Travel in the last 8 weeks?: None household members: spouse housing: house 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 current occupational exposures/hazards: No caffeine: Yes Have you lived/traveled outside [place] in past 30 days?: No Contact w/someone who lives/traveled outside [place] past 30 days?: No Exposure to someone with infectious disease in past 14 days?: No Do you have a fever (greater than 100.4 F or 38 C)?: No Have you tested positive for COVID-19?: No Exposed to someone with COVID-19 in past 14 days?: No Do you have a sore throat?: No Do you have a cough?: No Do you have any weakness?: No Do you have any diarrhea?: No Are you experiencing any unusual bleeding?: No Do you have any muscle aches/pain?: No Do you have any abdominal pain?: No Are you experiencing loss of taste or smell?: No Other Medical History Have you received the Flu Vaccine for this season: No Have you received the Pneumonia Vaccine: No ROS Obtained: Yes All systems reviewed & no additional complaints except as documented Physical Exam General General appearance: alert and in no apparent distress Head Head exam: atraumatic and normocephalic Eye Eye exam: Present normal appearance, PERRL and EOMI Neck Neck exam: Present normal inspection, full ROM and trachea midline Respiratory Respiratory exam: Present normal lung sounds bilaterally; Absent respiratory distress, wheezes, stridor, accessory muscle use or prolonged expiratory phase Cardiovascular Cardiovascular exam: Present regular rate, normal rhythm and other (Pulses equal symmetric in upper and lower extremities) Abdominal Exam Abdominal exam: Present soft; Absent distention, tenderness or pulsatile mass Extremities Exam Extremities exam: Present other (Patient has necrotic wound on the medial aspect of her left great toe extending to the mid foot. Granulation tissue present. No obvious purulence with application of pressure expression. She also has plantar surface ulcer.); Absent edema Neurological Exam Neurological exam: Present alert, oriented X3 and CN II-XII intact; Absent motor sensory deficit Skin Skin exam: Present warm and dry; Absent diaphoresis or erythema Medical Decision Making Medical Records Medical records reviewed: Yes I reviewed the patient's medical records. Screening: Per USPSTF and CDC recommendations, given the prevalence of disease in our region, it is our hospital?s policy to screen for HIV and viral Hepatitis for all patients aged 18 and over and those with ongoing risk factors. Amos Inquiry Pt receiving controlled substance: No Amos was queried for this patient: No Vital Signs: 04/26/25 09:49 04/26/25 10:00 04/26/25 10:54 Temperature 97.9 F Temperature Source Oral Pulse Rate 68 68 Pulse Rate [Left Radial] 69 Respiratory Rate 20 Blood Pressure 111/71 132/73 Blood Pressure [Right Arm] 111/71 Blood Pressure Mean [Right Arm] 84 02 Sat by Pulse Oximetry 98 99 95 Oxygen Delivery Method Room Air Lab Data Lab Results 04/26/25 10:00: Sodium 140, Potassium 4.6, Chloride 108 H, Carbon Dioxide 28, Anion Gap 8.6, BUN 29 H, Creatinine 0.90, Estimated Creat Clear 82, Estimated GFR 63, Est GFR ( Amer) 77, Glucose 111 H, Calcium 9.4, Total Bilirubin 0.6, AST 29, ALT 23, Alkaline Phosphatase 116, C-Reactive Protein 10.8 H, Total Protein 6.5, Albumin 4.0, Globulin 2.5, Albumin/Globulin Ratio 1.6 04/26/25 10:48: WBC 10.4, RBC 4.76, Hgb 14.7, Hct 44.5, MCV 93.5, MCH 30.9, MCHC 33.0, RDW 13.1, Plt Count 239, MPV 10.2, Neut % (Auto) 68.9, Lymph % (Auto) 20.3, [place] % (Auto) 5.8, Eos % (Auto) 3.8, Baso % (Auto) 0.8, Neut # (Auto) 7.2, Lymph # (Auto) 2.1, [place] # (Auto) 0.6, Eos # (Auto) 0.4, Baso # (Auto) 0.1, ESR 6, Hemoglobin A1c 5.6 04/26/25 10:48 04/26/25 10:00 Orders (Tests/Meds): ED MEDICATIONS Generic Name Dose Route Start Last Admin Trade Name Freq PRN Reason Stop Dose Admin Cefepime HCl 2 gm/ Sodium 100 mls @ 200 mls/hr 04/26/25 12:11 Chloride IV 04/26/25 12:40 ONCE ONE ORDERS Category Date Time Status Foot XR left minimum 3 views [XR foot LT min 3V] Stat Exams 04/26/25 09:59 Completed Lumbar spine XR 2-3 views [XR lumbar spine 2-3V] Stat Exams 04/26/25 09:59 Completed CBC w/Auto Diff [Complete Blood Count Auto Diff] Stat Lab 04/26/25 10:48 Completed CMP [Comprehensive Metabolic Panel] Stat Lab 04/26/25 10:00 Completed CRP [C-Reactive Protein] Stat Lab 04/26/25 10:00 Completed ESR [Erythrocyte Sedimentation Rate] Stat Lab 04/26/25 10:48 Completed Hemoglobin A1C Stat Lab 04/26/25 10:48 Completed Medical Decision Narrative: 64-year-old female presenting with left foot wound. She states that she has a history of poor wound healing, has no history of peripheral arterial disease or diabetes. Has been following with Dr. Peterson since last month, 03/16 when she had operation done with sutures still remaining in the left foot. No fevers or chills, nausea or vomiting, but has pain and pus, coming from necrotic wound on the left ventral/mid foot. Mildly tender. States that she had a fall today, 04/26, fell backward, on her way getting up, thinks she may have injured her feet, so came in for further evaluation. History was obtained via conversation with patient. On arrival, patient hemodynamically stable, alert, [oriented x4, ][appropriate, ]GCS [15], moving all extremities spontaneously, pupils equal and reactive to light. Full physical exam performed and significant for clinically well-appearing female in no acute distress. Pain on the medial/ventral aspect of her foot surrounding necrotic wound that appears chronic. Tenderness proximally, which is new. No purulent discharge on application of pressure. She does have multiple sutures in place that are buried laterally to this necrotic wound. Granulation tissue favored over purulence. What appears to be a new ulcer on the plantar surface of her left great toe as well. Differential includes poor wound healing, peripheral arterial disease, vitamin or mineral deficiency, diabetes Patient placed on continuous cardiac monitoring and continuous pulse ox with initial blood pressure 111/71, heart rate 69, saturation 98% on room air. Workup independently interpreted and significant for normal sodium, nonactionable chemistry. ESR normal, CRP only mildly elevated at 10 on independent interpretation of imaging, no acute abnormality in the foot. See radiology read for full review of final results. I consulted podiatry about this case. She will come and see patient in the emergency department. Recommended dose of cefepime, outpatient follow-up. I feel this is appropriate. Given patient presentation, workup, history, this most likely represents illness anxiety disorder. Further evaluation patient states that she is concerned that she has infection spreading my brain. Had a wound culture done a couple days prior, Pseudomonas positive. Patient currently on Levaquin I feel this is appropriate. Consultation with podiatry who is in agreement. Because patient at baseline without signs or symptoms of clinical decompensation, deemed appropriate for discharge. Results were relayed to patient[] who voiced understanding and were agreeable to outpatient management and follow up. I discussed my clinical impression with patient[] and answered all questions. At this time, the evidence for any other entities in the differential is insufficient to warrant any further testing or ED observation. This was explained as well. Advisory was given that persistent or worsening symptoms require further evaluation. I confirmed the understanding of this discussion. 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 Electronic breaking machine operator of the spoken language may permit errors. Although I have reviewed the note, some errors may still exist. Critical Care Critical Care Time Critical Care Time: No
[2025-04-26 10:16] LABS: Chloride 108 mmol/L (98-107); Potassium 4.6 mmoL/L (3.5-5.1); Sodium 140 mmol/L (136-145)
[2025-04-26 10:19] LABS: Alanine Aminotransferase 23 U/L (12-78); Albumin/Globulin Ratio 1.6 (1.1-1.8); Alkaline Phosphatase 116 U/L (38-126); Anion Gap 8.6 mEq/L (5-15); Aspartate Amino Transferase 29 U/L (14-36); Bilirubin,Total 0.6 mg/dl (0.2-1.3); Blood Urea Nitrogen 29 mg/dl (7-17); Carbon Dioxide 28 mmol/L (22.0-30.0); Creatinine Clearance Estimated 82 mL/min (50-200); Estimated Glomerular Filt Rate 63 ml/min (>60); GFR (African American) 77 ML/MIN (>60); Globulin 2.5 g/dL (1.3-3.2); Total Protein,Serum 6.5 g/dl (6.3-8.2)
[2025-04-26 10:20] LABS: Calcium 9.4 mg/dl (8.4-10.2); Glucose 111 mg/dl (74-100)
[2025-04-26 10:25] LABS: C-Reactive Protein 10.8 mg/L (0-4)
[2025-04-26 11:02] LABS: Basophils # 0.1 K/mm3 (0-0.2); Basophils % 0.8 % (0.1-2.0); Eosinophils # 0.4 Kmm3 (0.0-0.4); Eosinophils % 3.8 % (0.1-12.0); Hematocrit 44.5 % (37.0-47.0); Hemoglobin 14.7 g/dL (12.2-16.2); Immature Granulocytes # 0.04 10^3uL; Immature Granulocytes % 0.4 %; Lymphocytes # 2.1 K/mm3 (0.7-4.5); Lymphocytes % 20.3 % (10-50); Mean Corpuscular Hemoglobin 30.9 pg (27.0-31.2); Mean Corpuscular Volume 93.5 fl (81-99); Mean Platelet Volume 10.2 fl (7.4-10.4); Monocytes # 0.6 K/mm3 (0.1-1.0); Monocytes % 5.8 % (1.7-9.3); Neutrophils # 7.2 K/mm3 (1.8-7.8); Neutrophils % 68.9 % (37.0-80.0); Nucleated Red Blood Cells # 0 10^3/uL; Nucleated Red Blood Cells % 0 %; Platelet Count 239 K/mm3 (142-424); Red Blood Count 4.76 M/mm3 (4.20-5.40); Red Cell Distribution Width 13.1 % (11.5-17.5); Red Cell Distribution Width-SD 44.8 fL; White Blood Count 10.4 K/mm3 (4.8-10.8)
[2025-04-26 11:28] LABS: Erythrocyte Sedimentation Rate 6 mm/hr (0-30)
--- NOTE | 2025-04-26 11:30 | PC.NURSE ---
speaking with Dr. ePterson at this time
[2025-04-26 12:03] LABS: Hemoglobin A1C 5.6 % (4.0-6.0)
[2025-04-26] MEDS: CEFEPIME HCL 2 GM in 0.9 % SODIUM CHLORIDE 100 ML IV (12:22)
--- NOTE | 2025-04-26 12:29 | EXP.POD.CONS ---
History of Present Illness *Admission Date: 04/26/25 *Reason for visit:: Dizzy, muscle aches *History of present illness: Patient is a 64-year-old female well-known to the podiatry service. Patient presents to [facility] ER today after a fall in the parking lot on her way to work. She reports dizziness. She reports full body muscle aches and fatigue. She reports this has been going on for several days. She was concerned for sepsis so came to the ER for evaluation. Of note patient did have surgery 03/16/2025 for left first MPJ revisional arthrodesis. She has been on Cipro and Levaquin for Pseudomonas infection. Patient reports some drainage at home. Podiatry consulted to evaluate wound. Overall there has been improvement in left foot wound with less redness, less swelling, no purulence for a wound culture. Patient does have rheumatoid arthritis and is treated by PCP with diclofenac. She is not on any antirheumatic medicine and is not seeing rheumatology currently. Also reports some sinus drainage. Explained the dizziness could be from sinus drainage symptoms and muscle ache/fatigue could be from an RA flareup. Will discuss with ER Doctor. [facility] Disclaimer: The information contained in this section may have been updated after the patient was seen, as this information can be updated by other users. Medical History Rheumatoid arthritis YOANA on CPAP Sleep apnea Fibromyalgia Migraines Arthritis Kidney stone Hypertension Bunion Hammer toe Surgical History History of cardiac cath H/O right wrist surgery RIGHT WRIST FUSION History of carpal tunnel surgery of right wrist History of bilateral knee replacement History of bilateral knee arthroplasty History of colonoscopy H/O tubal ligation History of right hip replacement Hx of appendectomy S/P cystoscopy with ureteral stent placement Family History Other Family history of diabetes mellitus type II Family history of stroke Heart disease Kidney disease Social History Smoking Status: Never smoker second hand exposure: No alcohol intake: never counseling provided: provider counseling substance use type: denies use current occupational status: employed Travel in the last 8 weeks?: None household members: spouse housing: house 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 current occupational exposures/hazards: No caffeine: Yes Have you lived/traveled outside US in past 30 days?: No Contact w/someone who lives/traveled outside US past 30 days?: No Exposure to someone with infectious disease in past 14 days?: No Do you have a fever (greater than 100.4 F or 38 C)?: No Have you tested positive for COVID-19?: No Exposed to someone with COVID-19 in past 14 days?: No Do you have a sore throat?: No Do you have a cough?: No Do you have any weakness?: No Do you have any diarrhea?: No Are you experiencing any unusual bleeding?: No Do you have any muscle aches/pain?: No Do you have any abdominal pain?: No Are you experiencing loss of taste or smell?: No Review of Systems Review of Systems Review of systems:: pertinent systems reviewed and negative unless documented below Constitutional Constitutional: Reports system reviewed and no additional complaints, except as documented and Reports fatigue Eyes Eyes: Reports system reviewed and no additional complaints, except as documented ENT Ears, Nose, Mouth, and Throat: Reports system reviewed and no additional complaints, except as documented *Cardiovascular Cardiovascular: Reports system reviewed and no additional complaints, except as documented *Respiratory Respiratory: Reports system reviewed and no additional complaints, except as documented *Gastrointestinal Gastrointestinal: Reports system reviewed and no additional complaints, except as documented *Genitourinary Genitourinary: Reports system reviewed and no additional complaints, except as documented *Musculoskeletal Musculoskeletal: Reports system reviewed and no additional complaints, except as documented Integumentary/Breasts Skin/Breast: Reports system reviewed and no additional complaints, except as documented and Reports wounds (left foot) *Neurologic Neurologic: Reports system reviewed and no additional complaints, except as documented and Reports paresthesias Psychiatric Psychiatric: Reports system reviewed and no additional complaints, except as documented Endocrine Endocrine: Reports system reviewed and no additional complaints, except as documented and Reports fatigue Hematologic/Lymphatic Hematologic/Lymphatic: Reports system reviewed and no additional complaints, except as documented Allergic/Immunologic Allergic/Immunologic: Reports system reviewed and no additional complaints, except as documented Meds Home Medications and Allergies Home Medications ?Medication ?Instructions ?Recorded ?Confirmed ?Type furosemide 40 mg tablet 40 mg PO NEEDED PRN fluid 45 12/15/17 04/21/25 History days ##90 losartan 25 mg tablet 25 mg PO DAILY blood pressure 30 12/15/17 04/21/25 History days ##30 metoprolol tartrate 100 mg tablet 100 mg PO DAILY heart 30 days ##60 12/15/17 04/21/25 History montelukast 10 mg tablet 10 mg PO DAILY Breathing problems 12/15/17 04/21/25 History 30 days ##30 sumatriptan succinate 100 mg tablet 100 mg PO NEEDED PRN migraines 12/15/17 04/21/25 History 34 days ##10 allopurinol 100 mg tablet 300 mg PO DAILY gout 12/18/17 04/21/25 History loratadine 10 mg capsule 10 mg PO DAILY allergies 12/19/17 04/21/25 History potassium citrate 10 mEq (1,080 10 meq PO DAILY Supplement 10/10/21 04/21/25 History mg) tablet,extended release diclofenac potassium 50 mg tablet 50 mg PO DAILY 01/06/25 04/21/25 History dicyclomine 20 mg tablet 20 mg PO ONCE 01/06/25 04/21/25 History fluticasone propionate 50 1 spray intranasal DAILY PRN 01/06/25 04/21/25 History mcg/actuation nasal allergies spray,suspension omeprazole 20 mg capsule,delayed 20 mg PO DAILY 01/06/25 04/21/25 History release tamsulosin 0.4 mg capsule 0.4 mg PO DAILY 01/06/25 04/21/25 History venlafaxine 37.5 mg 37.5 mg PO ONCE 01/06/25 04/21/25 History capsule,extended release 24 hr cholecalciferol (vitamin D3) 1,250 1,250 mcg PO WEEKLY vitamin D 3 03/02/25 04/21/25 Rx mcg (50,000 unit) capsule months #13 caps hydrocodone 7.5 mg-acetaminophen 1 tab PO Q4-6H PRN post op pain 7 03/15/25 04/21/25 Rx 325 mg tablet days #30 tabs ondansetron 4 mg disintegrating 4 mg PO Q6H PRN nausea and 03/15/25 04/21/25 Rx tablet vomiting #30 tabs gabapentin 100 mg capsule 100 mg PO TID PRN nerve pain 10 04/04/25 04/21/25 Rx days #30 caps collagenase clostridium histo. 250 1 applic topical QDAY wound care 05/08/25 05/22/25 Rx unit/gram topical ointment (Santyl) #30 grams gentamicin 0.1 % topical cream 1 applic topical TID wound 2 weeks 04/18/25 04/21/25 Rx #30 grams levofloxacin 750 mg tablet 750 mg PO DAILY Infection 10 days 04/26/25 Rx #10 tabs New Prescriptions to Start Prescriptions: Allergies Allergy/AdvReac Type Severity Reaction Status Date / Time peanut Allergy Severe Rash Verified 04/14/25 08:34 chlorhexidine Allergy Mild itching Verified 04/14/25 08:34 diclofenac (From [place]) Allergy Mild itching Verified 04/14/25 08:34 amitriptyline Allergy Unknown HALLUCINATI Verified 04/14/25 08:34 ONS codeine Allergy Unknown HEADACHES Verified 04/14/25 08:34 dexamethasone Allergy Unknown MIGRAINES,I Verified 04/14/25 08:34 NSOMNIA latex Allergy Unknown ITCHING,HIV Verified 04/14/25 08:34 ES,SWELLING ,RASH hydromorphone (From Dilaudid) AdvReac Unknown SENSITIVE Verified 04/14/25 08:34 TO -NOT ALLERGIC Exam (Inpt) Vital signs and Labs for Last 24 Hours: Temp Pulse Resp BP Pulse Ox O2 Del Method 97.9 F 68 20 132/73 95 Room Air 04/26/25 09:49 04/26/25 10:54 04/26/25 09:49 04/26/25 10:54 04/26/25 10:54 04/26/25 09:49 Laboratory Results - last 24 hr 04/26/25 10:00: Sodium 140, Potassium 4.6, Chloride 108 H, Carbon Dioxide 28, Anion Gap 8.6, BUN 29 H, Creatinine 0.90, Estimated Creat Clear 82, Estimated GFR 63, Est GFR ( Amer) 77, Glucose 111 H, Calcium 9.4, Total Bilirubin 0.6, AST 29, ALT 23, Alkaline Phosphatase 116, C-Reactive Protein 10.8 H, Total Protein 6.5, Albumin 4.0, Globulin 2.5, Albumin/Globulin Ratio 1.6 04/26/25 10:48: WBC 10.4, RBC 4.76, Hgb 14.7, Hct 44.5, MCV 93.5, MCH 30.9, MCHC 33.0, RDW 13.1, Plt Count 239, MPV 10.2, Neut % (Auto) 68.9, Lymph % (Auto) 20.3, [place] % (Auto) 5.8, Eos % (Auto) 3.8, Baso % (Auto) 0.8, Neut # (Auto) 7.2, Lymph # (Auto) 2.1, [place] # (Auto) 0.6, Eos # (Auto) 0.4, Baso # (Auto) 0.1, ESR 6, Hemoglobin A1c 5.6 I & O for Labs for Last 24 Hours: Intake & Output 04/24/25 04/25/25 04/26/25 04/27/25 11:59 11:59 11:59 11:59 Weight 200 lb Constitutional: Present no acute distress and obese Head: Present normocephalic Neck: Present normal inspection Respiratory: Present normal respiratory effort Cardiac: Present posterior tibial pulses present and pedal pulses present GI: Present soft Rectal (female): Present deferred (female): Present deferred Extremities: Present normal inspection Skin: Present intact and wounds Comment:: 04/26/25: Left foot sutures clean dry and intact. 1st MTPJ incision edema, erythema improved since DIDIER. The first ray skin changes extend 7 x 2.0 x 0.2cm including black eschar to proximal medial incision and distal superficial ulcer (prior blister site). No purulence, malodor or ascending cellulitis. Sharp excisional full thickness wound debridement with 15' blade thru skin into subq. Left proximal medial incision wound: 90% black eschar, 10% fibrotic, 5.2 x 2.0 x 0.2cm. No bleeding from dorsal distal suture line. No jhonny purulence expressed. No drainage for a new WCx. Neuro: Present Motor Function Intact, oriented x 3 and moves all extremities Ankle: bilateral: normal inspection Feet/Toes: left: deformity (L 2nd toe HT deviation), left: erythema (minimal), left: swelling (non pitting edema, improved from DIDIER), left: tenderness (diffuse left distal toe, b/l legs, thighs, arms up to collar) and left: decreased ROM (L 1st MTPJ AD) and bilateral: normal inspection Inspection: Present foot deformity and infection (LF improving) Pulses: L dorsalis pedis pulse: normal, R dorsalis pedis pulse: normal, L posterior tibial pulse: normal and R posterior tibial pulse: normal CFT: dim: CFT Results Labs 04/26/25 10:48 04/26/25 10:00 Labs: Abnormal lab results 04/26/25 Range/Units 10:00 Chloride 108 H (98-107) mmol/L BUN 29 H (7-17) mg/dl Glucose 111 H (74-100) mg/dl C-Reactive Protein 10.8 H (0-4) mg/L H & H 04/26/25 Range/Units 10:48 Hgb 14.7 (12.2-16.2) g/dL Hct 44.5 (37.0-47.0) % All other labs normal. Diagnostic results Ankle/Foot x-ray: report reviewed and image reviewed ((-) OM, no hardware failure, stable post-op) Assessment and Plan *Assessment and plan (1) Nonunion after arthrodesis: Status: Acute Category: Medical Code(s): M96.0 - Pseudarthrosis after fusion or arthrodesis (2) Left foot pain: Status: Acute Category: Medical Code(s): M79.672 - Pain in left foot (3) Pseudomonas infection: Status: Acute Category: Medical Code(s): A49.8 - Other bacterial infections of unspecified site (4) Wound of foot: Status: Acute Category: Medical Code(s): S91.309A - Unspecified open wound, unspecified foot, initial encounter (5) Rheumatoid arthritis: Status: Acute Qualifiers: Rheumatoid arthritis location: multiple sites Rheumatoid factor presence: unspecified presence Qualified Code(s): M06.9 - Rheumatoid arthritis, unspecified Category: Medical Code(s): M06.9 - Rheumatoid arthritis, unspecified (6) Class 1 obesity: Status: Acute Category: Medical Code(s): E66.811 - Obesity, class 1 Plan Surgery, 03/16/25: S/p Revision of non-union, Left 1st MTPJ arthrodesis, Calcaneal autograft harvest, Left foot hardware removal, bone biopsy, Left foot exostectomy, Graft application Intraop Specimens: Left foot hardware culture: Coag negative Staphylococcus Left 1st MTPJ bone culture: Staphylococcus schleiferi (MRSA) Left 1st MTPJ bone path: Bone and surrounding soft tissue with reactive changes. No evidence of acute osteomyelitis identified. Left 1st MTPJ bone tissue path: Bone and surrounding soft tissue with reactive changes. No evidence of osteomyelitis. Specimens: 04/01/25: Left foot WCx (Lesly CAM), Pseudomonas putida, R to Bactrim, S to Cefepime, Cipro (see list scanned in). 04/07/25: Left foot WCx: GNR, final moderate Pseudomonas putida Antibiotics: -Completed oral Doxy x 10d (03/17-03/27/25). -Completed oral Cipro 500mg BID x10d (04/05-04/15/25). -On Levo 750mg x10d (04/16-04/26/25), topical Gentamicin. -IV Cefepime 204/26/25. -eRx Levo 750mh x10d (04/27-05/07/25). Imagin04/26/25, 3v left foot taken in ER. COMPARISON: 04/13/2025. FINDINGS: LEFT FOOT Three views were obtained. There is sideplate and screws securing the first metatarsal phalangeal joint. Bone/fusion graft material is seen at the first MTP joint. Orthopedic screw is seen securing the second PIP joint. There is a moderate plantar spur. IMPRESSION: Postsurgical changes as above. Reviewed, Interpreted and Dictated by Mateusz Burroughs MD. Transcribed by Heather Saldivar. Labs: 04/26/25: wbc 10.4, esr 6, crp 10.8, cr 0.9, gfr 77, glucose 111, albumin 4.0 04/26/25: -[facility] ER Consult -fall today, c/o muscle aches/fatigue for several days, sinus drainage -patient concerned she has infection in her blood because pain throughout her body and [facility] and does not want it to get into my brain -discussed diagnosis: Sinus infection, sinus drainage could cause some dizziness, RA flareup, postop infection -recommend f/u with Rheumatology -ER workup: labs, left foot x-rays reviewed and discussed with patient -I personally/independently evaluated the left foot x-rays which show hardware intact, no obvious hardware loosening or screws backing out, s/p first MTPJ fusion, no obvious signs of infection or fracture noted. -Left foot skin cleansed -Left foot wound evaluated and sharply excisonally debrided with 15' blade full thickness. see skin PE section for details. -Overall wound site looks better than DIDIER, less redness swelling and no drainage. -Santyl applied to eschar, betadine DSD applied. -Reassured patient her infection is being appropriately managed with oral antibiotics susceptible to Pseudomonas. -Plan for a dose of IV cefepime 2 g in ER today. refill Levo 750mg po x10d. -Discussed outpatient referral for infectious disease for beth opinion. Patient declined. -Will monitor closely. discussed if SOI worsen, or if not responding to oral abx may need PICC, IV antibiotics or surgical debridement. -Pt feels comfortable to monitor daily and will call office if any changes noted. -Also discussed her cool toes. Which have always been like that even prior to her first surgery. She has had vascular studies in the past which were normal. Patient did bleed during surgery so at this point I am not as concerned with PAD. However did check ABIs to re-evaluate, which were normal. -Discussed postop wounds can occur in higher risk: multiple procedures thru same incision, fragile skin, co-morbidities (not DM, ex smoker, fibromyalgia), admitted today she was diagnosed with RA -At this point, I think the wound appearance is secondary to trauma of 3rd surgery and infection. I explained aggressive debridement of eschar, wound vac may traumatize the skin worse, so hold on that for now. -I did discuss however if the wound starts to turn gangrenous or the incision is not healing as expected, may need to surgical debride. she verbalized understanding and agreement. -Rec daily dsg changes (dispensed santyl): santyl to black eschar, gentamicin to remaining wound, DSD. -Pt works at [employer] office, [employer] has been changing it there during work daily. -Monitor for SOI, call office immediately if noted (if after hours concerns, talk to PCP, go to ER or call me directly-she has my cell). -Hold ice to avoid vasoconstriction. -Elevate and Motrin for pain and swelling. -Discussed/rec referral to Shameka at [facility] (pt has seen in past for right leg wound. [facility] eval pending for 05/02/25. -All questions answered, dressings change demonstrated, supplies dispensed. Patient verbalized understanding and agreement with all aspects of treatment plan. She did state she felt better after we came and evaluated her foot. -Call office with any questions or concerns. -Follow up on 04/28/25 as scheduled in Podiatry office.
== END 2025-04-26 12:45 | disposition home or self-care (01) ==
PROVIDERS: Emergency Provider Emergency Medicine; PCP Nurse Practitioner
DX: S91.309A Unspecified open wound, unspecified foot, initial encounter (principal); A49.8 Other bacterial infections of unspecified site; M79.672 Pain in left foot; M06.9 Rheumatoid arthritis, unspecified; X58.XXXA Exposure to other specified factors, initial encounter
CPT/HCPCS: 72100; 73630; 80053; 83036; 85025; 85651; 86140; 96365; 99284; J0692

== ENCOUNTER 2025-05-17 13:58 | Outpatient (RCR) | payer BC, SELFPAY | END 2025-05-17 23:59 | disposition home or self-care (01) | LOC: PT 13:58 | PROVIDERS: PCP Nurse Practitioner; Visit Provider Nurse Practitioner | DX: M79.10 Myalgia, unspecified site (principal); M25.50 Pain in unspecified joint | CPT/HCPCS: 97162 ==

== ENCOUNTER 2025-05-24 10:31 | Outpatient (CLI) | payer BC, SELFPAY ==
--- OUTSIDE RECORDS SUMMARY | 2025-05-24 10:34 | XMS_ITS | Encounter Summary ---
Author Organization [employer] Address [address] [place] [id number] Care Team Providers Care Paper Sales Manager Name Role Phone Unavailable Primary Care Provider Unavailabl e Encounter Details Date Type Department Care Team (Late st Contact Info) Description 03/22/2021 Transcribed Document [facility] [place] [address] [place] [address] ProviderLibrado MD [address], [place] [id number] Social History Tobacco Use Types Packs/Day Years Used Date Smoking Tobacco: Never Assessed Comments Unknown Sex and Gender Information Value Date Recorded Sex Assigned at Not on file Legal Sex Female 1:10 PM CDT Gender Identity Not on file Sexual Orientation Not on file documented as of this encounter Miscellaneous Notes * Cerner Conversion Note - Librado ProviderMD - 03/22/2021 11:28 AM CDT Final Discharge Planning Entered On: 03/22/2021 11:29 EDT Performed On: 03/22/2021 11:28 EDT by LASHAE LUGO RN Final Discharge Planning Discharge Arrangements : Patient Post-Acute Information Patient Name: JOIE TAVARES Gender: Female : 62 Age: 60 Years Elíasaspan Referral(s): Service: Organization: Business Address: Phone Number: [facility] [address], [place], [address] Patient Offered Choice/Affiliations Explained : Yes Designation of Choice Signed : Yes Important Medicare Message Reviewed With : Other: outpatient Important Medicare Message Reviewed D/T : 03/22/2021 11:29 EDT Transportation Needs : Family/Friend Follow Up Appointment Scheduled : Yes Is Patient High/Moderate Readmission Risk? : No Patient/Family Notified of Plan : Yes Support Person/Pt Rep Notified of Plan : Yes Is Patient Ready for Discharge? : Yes Physician Notified Patient is Ready for Discharge? : Yes Discharge To Care Management : Home Health Services (Related/SOC within 3 days)-06 LASHAE LUGO RN - 03/22/2021 11:28 EDT Final Narrative Note Final Narrative Note : Patient discharging home today. [facility] to see patient at discharge. No further CM needs identified. LASHAE LUGO RN - 03/22/2021 11:28 EDT documented in this encounter Plan of Treatment Not on file documented as of this encounter Visit Diagnoses Not on filedocumented in this encounter
--- OUTSIDE RECORDS SUMMARY | 2025-05-24 10:34 | XMS_ITS | Clinical Summary ---
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 Name Role Phone Marcio STILES, Brian Kate [phone] [ ] Conditions or Problems Problem Name Problem Code Onset Date Status Entry Date Provider Comment Standard Description Annotate Eschar 345202426 (SNOMED CT) Active Brian Buckley MD Skin eschar Hematoma of arm 562952030 (SNOMED CT) Active Brian Buckley MD Hematoma Other obesity due to excess calories 046237691 (SNOMED CT) Active Yasmin Minor Simple obesity Gram negative infection 647305043 (SNOMED CT) Active Brian Buckley MD 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-negative bacteria Wound infection 06022677 (SNOMED CT) Active Brian Buckley MD Local infection of wound Knee, right, initial encounter(s) , 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 T84.53xA (ICD-10-CM) Active Clare Hemal Infection and 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 prosthesis, initial encounter Effusion, right knee M25.461 (ICD-10-CM) Active Clare Hemal Effusion, right knee Cellulitis of RLE 283813074 (SNOMED CT) Active Clare Hemal Cellulitis of lower limb Medications Medication Instructions Start Date Stop Date Generic Name NDC Provider BACTRIM DS 800-160 MG TABS Take 1 tablet by mouth twice a day 5 sulfamethoxazo le-trimethopri m 35322765109 Brian Buckley MD CLINDAMYCIN HCL 150 MG CAPS by mouth clindamycin hcl 46103494977 Lois Suarez DIFLUCAN 150 MG TABS by mouth fluconazole 65497933761 Lois Suarez ALLOPURINOL 100 MG TABS by mouth once a day allopurinol 96625905441 Yasmin Minor CEFADROXIL 500 MG CAPS by mouth three times a day cefadroxil 84167806637 Yasmin Minor CLINDAMYCIN HCL 150 MG CAPS by mouth clindamycin hcl 44450382566 Yasmin Minor DICYCLOMINE HCL 20 MG TABS by mouth dicyclomine 24561829942 Yasmin Minor DIFLUCAN 150 MG TABS by mouth fluconazole 36182853878 Yasmin Minor DOXYCYCLINE HYCLATE 100 MG CAPS by mouth twice a day doxycycline hyclate 97454749682 Yasmin Minor FUROSEMIDE 40 MG TABS by mouth once a day furosemide 65093379565 Yasmin Minor LORATADINE 10 MG TABS by mouth once a day loratadine 23323538011 Yasmin Minor LOSARTAN POTASSIUM 25 MG TABS by mouth once a day losartan 22028765178 Yasmin Minor MELOXICAM 15 MG TABS by mouth once a day meloxicam 28039836749 Yasmin Minor METOPROLOL SUCCINATE ER 100 MG [id number] by mouth twice a day metoprolol succinate 92195974619 Yasmin Minor MONTELUKAST SODIUM 10 MG TABS by mouth montelukast 56579571747 Yasmin Minor OSTEO BI-FLEX ONE PER DAY TABS by mouth once a day glucosamine-d3 -boswellia serr 91597508035 Yasmin Minor Medications Administered No information available. Allergies, Adverse Reactions, Alerts Allergy Name Reaction Description Start Date Severity Statu s Provider TYLENOL WITH CODEINE #3 Moderate Activ e Yasmin Minor PENNSAID Moderate Active Yasmin Mi nor CAREMATES LATEX-PF GLOVE LARGE Moderate Active Yasmin Minor DILAUDID Moderate Active Yasmin Mi nor AMITRIPTYLINE HCL Moderate Active O lionel Minor Results Date Name Value Unit Range Flag Description Clinical Lists Update: Prelo ad VAPE_USE Never Tobacco smok ing status Office Visit: 12 MEDS REVIEW Done Documenta tion of current medications (procedure) ORALTOBACUSE Never Tobacco smoking status SMOK STATUS Former smoker Tob acco smoking status Plan of Care Type Date Detail Pending order Wound Care Pending order CMP Pending order Sedimentation Ra te (ESR) Pending order C- reactive prot ein Pending order CBC with Differe ntial Pending order CMP Pending order C- reactive prot ein Pending order CBC with Differe ntial Pending order Sedimentation Ra te (ESR) Procedures Code Procedure Name Date Entry Date CPT-03830 CMP CPT-11748 Sedimentation Rate (ESR) 202 02/02/09 CPT-08089 C- reactive protein [id number] CBC with Differential 2022 CPT-48546 CMP CPT-97858 C- reactive protein [id number] CBC with Differential 2022 CPT-57496 Sedimentation Rate (ESR) 202 02/01/25 Vital Signs Date Name Value Unit Description BMI (Body Mass Index) 33.67 kg/m2 Bod y Mass Index (Ratio) Body Temperature 97.7 [degF] temperat ure E&M BP Diastolic 80 mm[Hg] blood pressu re, diastolic BP Systolic 145 mm[Hg] blood pressur e, systolic Heart Rate 68 /min pulse rate Height 67 [in_us] height E&M Respiratory Rate 16 /min respirat ory rate E&M Weight Measured 215 [lb_av] weight E& M Weight Measured 215 [lb_av] weight E& M Immunizations No information available. Advance Directives Directive Description Start Date NO ADV DIRECTIVES EST
--- OUTSIDE RECORDS SUMMARY | 2025-05-24 10:34 | XMS_ITS | Encounter Summary ---
Author Organization [employer] [facility] 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 Name Role Phone Unavailable Primary Care Provider Unavailabl e Encounter Details Date Type Department Care Team (Late st Contact Info) Description 03/21/2021 Transcribed Document [facility] [address] [place] [address] ProviderLibrado MD [address], [place] [address] Social History Tobacco Use Types Packs/Day Years Used Date Smoking Tobacco: Never Assessed Comments Unknown Sex and Gender Information Value Date Recorded Sex Assigned at Not on file Legal Sex Female 1:10 PM CDT Gender Identity Not on file Sexual Orientation Not on file documented as of this encounter Miscellaneous Notes * Cerner Conversion Note - Historical ProviderMD - 03/21/2021 10:39 AM CDT Consult Phone Call Documentation Entered On: 03/21/2021 10:44 EDT Performed On: 03/21/2021 10:39 EDT by MULU FELIPE Phone Call for Consults Physician Requesting Consult : DARY GAMEZ JR, JR, MD-ORT Physician Requested for Consult : MADDIE ALTAMIRANO MD-INT Physician Covering for Consult : MADDIE ALTAMIRANO MD-INT Date and Time Call Returned : 03/21/2021 10:44 EDT MULU FELIPE - 03/21/2021 10:44 EDT documented in this encounter Plan of Treatment Not on file documented as of this encounter Visit Diagnoses Not on filedocumented in this encounter
--- OUTSIDE RECORDS SUMMARY | 2025-05-24 10:34 | XMS_ITS | Encounter Summary ---
Author Organization [facility] Address [address] [place] [address] Care Team Providers Care Group Teacher Name Role Phone Unavailable Primary Care Provider Unavailabl e Encounter Details Date Type Department Care Team (Late st Contact Info) Description 03/22/2021 Transcribed Document [facility] Family Medicine [address] [place] [address] ProviderLibrado MD [address] [place], [place] [id number] Social History Tobacco Use Types Packs/Day Years Used Date Smoking Tobacco: Never Assessed Comments Unknown Sex and Gender Information Value Date Recorded Sex Assigned at Not on file Legal Sex Female 1:10 PM CDT Gender Identity Not on file Sexual Orientation Not on file documented as of this encounter Miscellaneous Notes * Cerner Conversion Note - Librado ProviderMD - 03/22/2021 12:43 PM CDT Patient Education Materials Follows: What to expect after the Procedure: After the procedure, it is common to have: ?? Pain and swelling. ?? A small amount of blood or clear fluid coming from your incision for up to 7 days ?? It is normal to have a moderate amount of bleeding from the site of the drain that was pulled on the morning after surgery. You can hold pressure on the area for 3-5 minutes and cover with a bandage as needed. Diet: ?? Resume usual diet ?? No alcoholic beverages while taking pain medication ?? Drink 8-10 glasses of water a day to prevent constipation from pain medication ?? Increase fiber to help prevent constipation. Straining can cause increased pressure and pain in your incision area ?? Increase protein to promote healing Driving: ?? Do not drive until your health care provider approves. Ask your health care provider when it is safe to drive if you have an immobilizer on your knee. ?? Do not drive or operate heavy machinery while taking prescription pain medicine. ?? Do not drive for 24 hours if you received a sedative. Activity: ?? Do not lift anything that is heavier than 10 lb (4.5 kg) until your health care provider approves. ?? No strenuous activity ?? Avoid high-impact activities, including running, jumping rope, and jumping jacks. ?? Avoid sitting for a long time without moving. Get up and move around at least every few hours. ?? Keep legs elevated while seated and place surgery leg on 2-3 pillows, this will decrease swelling ?? Continue using walker until cleared by physical therapy Bathing: ?? Do not take baths, swim, or use a hot tub for one month after surgery. ?? May shower on the third day after surgery by covering incision with Glad Brand Press and Seal saran wrap. After showering, dry off completely BEFORE removing saran wrap. ?? Use Press and Seal saran wrap to shower for one month after surgery ?? You must be seated to shower until you are no longer using the walker Other: ?? Use ice therapy for 20-30 minutes at a time and leave off for 20-30 minutes at a time. Always keep a towel or cloth between the ice pack and your skin ?? Continue to use Incentive Spirometer 10 times an hour while awake for one month to help prevent pneumonia ?? Leave Mepilex dressing on until follow-up appointment. ?? ASA 81mg twice a day for 45 days. Contact a health care provider if: ?? You have more redness, swelling, or pain around your incision. ?? You have more fluid or blood coming from your incision. ?? Your incision or drain site feels warm to the touch. ?? You have pus or a bad smell coming from your incision. ?? You have a fever. ?? Your incision breaks open after your health care provider removes your sutures, skin glue, or adhesive tape. ?? Your prosthesis feels loose. ?? You have knee pain that does not go away. Get help right away if you have: ?? Pain or swelling in your calf or thigh ?? Shortness of breath or diffiulty breathing ?? chest pain DVT: Blood Clot Blood clots are a common risk after an orthopedic surgery Symptoms: ?? Swelling of your leg or arm, especially if one side is much worse. ?? Warmth and redness of your leg or arm, especially if one side is much worse. ?? Pain in your arm or leg. If the clot is in your leg, symptoms may be more noticeable or worse when you stand or walk. ?? A feeling of pins and needles, if the clot is in the arm. The symptoms of a DVT that has traveled to the lungs (pulmonary embolism, PE) usually start suddenly and include: ?? Shortness of breath while active or at rest. ?? Coughing or coughing up blood or blood-tinged mucus. ?? Chest pain that is often worse with deep breaths. ?? Rapid or irregular heartbeat. ?? Feeling light-headed or dizzy. ?? Fainting. ?? Feeling anxious. ?? Sweating. There may also be pain and swelling in a leg if that is where the blood clot started. How is this prevented? ?? Exercise regularly. For at least 30 minutes every day, engage in: -Activity that involves moving your arms and legs. -Activity that encourages good blood flow through your body by increasing your heart rate. ?? Exercise your arms and legs every hour during long-distance travel (over 4 hours). ?? Drink plenty of water and avoid drinking alcohol while traveling. ?? Avoid sitting or lying in bed for long periods of time without moving your legs. ?? Maintain a weight that is appropriate for your height. Ask your health care provider what weight is healthy for you. ?? If you are a woman who is over 35 years of age, avoid unnecessary use of medicines that contain estrogen. These include control pills. ?? Do not smoke, especially if you take estrogen medicines. If you need help quitting, ask your health care provider. ?? Wear compression stockings (if told by your health care provider) to help prevent blood clots from forming. High Fiber/High Protein Diet High fiber foods: To prevent constipation Grains Whole-grain breads. Multigrain cereal. Oats and oatmeal. Brown rice. Barley. Bulgur wheat. Millet. Bran muffins. Popcorn. [place] wafer crackers. Vegetables Sweet potatoes. Spinach. Kale. Artichokes. Cabbage. Broccoli. Green peas. Carrots. Squash. Fruits Berries. Pears. Apples. Oranges. Avocados. Prunes and raisins. Dried figs. Meats and Other Protein Sources [place], kidney, romero, and soy beans. Split peas. Lentils. Nuts and seeds. Dairy Fiber-fortified yogurt. Beverages Fiber-fortified soy milk. Fiber-fortified orange juice. Other Fiber bars. High-protein foods: To promote healing High-protein foods contain 4 grams (4 g) or more of protein per serving. They include: ?? Beef, ground sirloin (cooked) ??? 3 oz have 24 g of protein. ?? Cheese (hard) ??? 1 oz has 7 g of protein. ?? Chicken breast, boneless and skinless (cooked) ??? 3 oz have 13.4 g of protein. ?? Cottage cheese ??? 1/2 cup has 13.4 g of protein. ?? Egg ??? 1 egg has 6 g of protein. ?? Fish, filet (cooked) ??? 1 oz has 6???7 g of protein. ?? Garbanzo beans (canned or cooked) ??? 1/2 cup has 6???7 g of protein. ?? Kidney beans (canned or cooked) ??? 1/2 cup has 6???7 g of protein. ?? Hernandez (cooked) ??? 3 oz has 24 g of protein. ?? Milk ??? 1 cup (8 oz) has 8 g of protein. ?? Nuts (peanuts, pistachios, almonds) ??? 1 oz has 6 g of protein. ?? Peanut butter ??? 1 oz has 7???8 g of protein. ?? Pork tenderloin (cooked) ??? 3 oz has 18.4 g of protein. ?? Pumpkin seeds ??? 1 oz has 8.5 g of protein. ?? Soybeans (roasted) ??? 1 oz has 8 g of protein. ?? Soybeans (cooked) ??? 1/2 cup has 11 g of protein. ?? Soy milk ??? 1 cup (8 oz) has 5???10 g of protein. ?? Soy or vegetable humza ??? 1 humza has 11 g of protein. ?? [place] seeds ??? 1 oz has 5.5 g of protein. ?? Tofu (firm) ??? 1/2 cup has 20 g of protein. ?? Tuna (canned in water) ??? 3 oz has 20 g of protein. ?? Yogurt ??? 6 oz has 8 g of protein. Fall Prevention ?? Use night lights. ?? Install grab bars by the toilet and in the tub and shower. Do not use towel bars as grab bars. ?? Use non-skid mats or decals on the floor of the tub or shower. ?? If you need to sit down while you are in the shower, use a plastic, non-slip stool. ?? Keep the floor dry. Immediately clean up any water that spills on the floor. ?? Remove soap buildup in the tub or shower on a regular basis. ?? Remove throw rugs and other tripping hazards from the floor. ?? Place frequently used items in [id number] places ?? Keep electrical cables out of the way. ?? Do not leave any items on the stairs. ?? Make sure that there are handrails on both sides of the stairs. Fix handrails that are broken or loose. Make sure that handrails are as long as the stairways. ?? Check any carpeting to make sure that it is firmly attached to the stairs. Fix any carpet that is loose or worn. ?? Avoid having throw rugs at the top or bottom of stairways, or secure the rugs with carpet tape to prevent them from moving. ?? Wear closed-toe shoes that fit well and support your feet. Wear shoes that have rubber soles or low heels. ?? Use mobility aids as needed, such as canes, walkers, scooters, and crutches. ?? Turn on lights if it is dark. Replace any light bulbs that burn out. ?? Set up furniture so that there are clear paths. Keep the furniture in the same spot. ?? Be aware of any and all pets. ?? Review your medicines with your healthcare provider. Some medicines can cause dizziness or changes in blood pressure, which increase your risk of falling. Hand Washing You should wash your hands whenever you think they are dirty. You should also wash your hands: ??? After: ?? Working or playing outside. ?? Touching an animal or its toys or leash. ?? Handling livestock. ?? Using the bathroom. ?? Using household store promoter or toxic chemicals. ?? Touching or taking out the garbage. ?? Touching anything dirty around your home. ?? Handling soiled clothes or rags. ?? Taking care of a sick child. This includes touching used tissues, toys, and clothes. ?? Sneezing, coughing, or blowing your nose. ?? Using public transportation. ?? Shaking hands. ?? Using a phone, including your mobile phone. ?? Touching money. ??? Before and after: ?? Preparing food. ?? Feeding a baby or young child. ?? Eating. ?? Visiting or taking care of someone who is sick. ?? Changing a diaper. ?? Changing a bandage (dressing) or taking care of an injury or wound. ?? Giving or taking medicine. If soap and clean water are not available, use an alcohol-based wipe, spray, or hand gel. Use a hand-sanitizing agent that contains at least 60% alcohol. If you are preparing food, hand sanitizers are not recommended as a substitute for hand washing. Walker Use To Walk With a Front-Wheeled Walker: 1. Slide your front-wheeled walker one step-length in front of you. Your toes should be farther forward than the back legs of your walker. 2. Hold on to the walker for support, and step your weaker (surgery) leg into the middle of the walker. 3. Step your stronger leg forward to land next to your weaker leg. 4. Repeat the process for each step. ?? Always keep both feet within the width of the walker's legs or wheels. ?? When using your walker, you should not feel like you need to lean forward or to the side to keep your hands on the handgrips. ?? Make sure you are following any weight-bearing instructions that your health care provider has given you. ?? Be careful not to let the walker get too far ahead of you as you walk. ?? If your walker does not glide well over carpet, consider cutting an X into two tennis balls and placing the balls over the back legs of your walker. How to use a walker on a curb or step To Use a Walker to Step Up: 1. Put all four legs of the walker on the curb or step. 2. Get your feet as close to the curb or step as you can. 3. Test the steadiness of the walker by pressing down on the handgrips. 4. If the walker is steady, press down on it with your hands as you step up with your stronger leg. 5. Step up with your weaker leg. To Use a Walker to Step Down: 1. Put all four legs of the walker on the surface that is lower than the curb or step. 2. Get your feet as close to the curb or step as you can. 3. Test the steadiness of the walker by pressing down on the handgrips. 4. If the walker is steady, press down on it with your hands as you step down with your weaker leg. 5. Step down with your stronger leg. FAQ - Patient COVID-19 testing Why do I need a COVID-19 test in the hospital? We are testing patients as part of an overall effort to ensure the safety of our patients, staff and providers, and to limit the spread of the novel coronavirus throughout our community. What happens if I test positive for COVID-19? Any scheduled elective procedure will be postponed and treatment for the coronavirus will follow the protocol that is currently in place. If you are admitted to the hospital, we will use droplet precautions for patients who test positive for COVID-19. If I'm a patient, should I wear a mask? Yes. When you are in your room alone, you may remove your mask. When anyone enters your room, you should put your mask back on. Will I be allowed to have visitors if I am admitted to the hospital with COVID-19? As part of the standard care for COVID-19 patients, visitors will not be allowed to protect them from potential exposure to the novel coronavirus. If you have a health care support person with you during a pending test and the test comes back positive, your visitor will be asked to leave and follow up with their primary care provider. Public health may reach out to them to complete contact tracing. Will my status as COVID-19 positive be reported? Because COVID-19 is a public health threat, all positive cases are reported through the local health department and the [place] Department for Public Health. Those organizations are responsible for monitoring public health threats. What is contact tracing? The public health departments at the state and local levels use contact tracing to prevent the spread of infectious disease. They will work to identify people who have COVID-19 and their contacts who may have been exposed. What does contact tracing involve? Typically, a contact tracer will interview patients with COVID-19 to identify everyone with whom they have had close contact during the time they may have been infectious and then notify those contacts of potential exposure and refer them for testing. They may monitor the contacts for symptoms of COVID-19 and connect the contacts with services they may need during a recommended self-quarantine period. The patient's name is not revealed to anyone during the contact tracing interviews, even if a contact asks. Who would be considered a close contact ? According to the CDC, a close contact is defined as someone who was within 6 feet of an infected person for at least 15 minutes, starting from 48 hours before the person began feeling sick until the time the patient was isolated. What can a close contact expect during this process? A contact tracer from the health department will contact that person to inform them they have been exposed to COVID-19. If that happens, the contact should self-quarantine for 14 days, starting from the last date of possible exposure, monitor their health, wear a face covering and maintain social distancing - at least 6 feet from others at all times. Should a close contact seek medical care? Close contacts should take their temperature twice a day, watch for COVID-19 symptoms and notify the health department if they develop symptoms. They should also notify people with whom they have had recent close contact if they become ill. They should seek medical care if symptoms worsen or become severe, including trouble breathing, persistent pain or pressure in the chest, confusion, inability to wait or stay awake, or bluish lips or face. Steps to Help Prevent the Spread of COVID-19 if You Are Sick In all cases, follow the guidance of your health care provider and local health department. Your local health department determines the length of time for quarantine and will notify you with detailed information. Monitor your symptoms. Common symptoms of COVID-19 include fever, fatigue, diarrhea/vomiting, loss of taste and smell, and cough. Trouble breathing is a more serious symptom that means you should get medical attention. If you develop emergency warning signs for COVID-19 get medical attention immediately. Emergency warning signs include*: ??? Trouble breathing ??? Persistent pain or pressure in the chest ??? New confusion or inability to arouse ??? Bluish lips or face *This list is not all inclusive. Please consult your medical provider for any other symptoms that are severe or concerning. Call 911 if you have a medical emergency. If you have a medical emergency and need to call 911, notify the telephone operator that you have, or think you might have, COVID-19. If possible, put on a facemask before medical help arrives. Stay home except to get medical care. ??? Stay home: Most people with COVID-19 have mild illness and can recover at home without medical care. Do not leave your home, except to get medical care. Do not visit public areas. ??? Stay in touch with your doctor. Call before you get medical care. Be sure to get care if you have trouble breathing, or have any other emergency warning signs, or if you think it is an emergency. Separate yourself from other people in your home; this is known as home isolation. ??? Stay away from others: As much as possible, stay away from others. You should stay in a specific sick room if possible, and away from other people in your home. Use a separate bathroom, if available. Call ahead before visiting your doctor. ??? Call ahead: Many medical visits for routine care are being postponed or done by phone or telemedicine. If you have a medical appointment that cannot be postponed, call your doctor's office, and tell them you have or may have COVID-19. This will help the office protect themselves and other patients. If you are sick, wear a facemask in the following situations, if available. ??? If you are sick: You should wear a facemask, if available, when you are around other people (including before you enter a health care provider's office). ??? If you are caring for others: If the person who is sick is not able to wear a facemask (for example, because it causes trouble breathing), then as their caregiver, you should wear a facemask when in the same room with them. Visitors, other than caregivers, are not recommended. Cover your coughs and sneezes. ??? Cover: Cover your mouth and nose with a tissue when you cough or sneeze. ??? Dispose: Throw used tissues into a lined trash can. ??? Wash hands: Immediately wash your hands with soap and water for at least 20 seconds. If soap and water are not available, clean your hands with an alcohol-based hand nurse epidemiologist that contains at least 60% alcohol. Clean your hands often. ??? Wash hands: Wash your hands often with soap and water for at least 20 seconds when visibly dirty. This is especially important after blowing your nose, coughing or sneezing, and going to the bathroom, and before eating or preparing food. ??? Hand nurse epidemiologist: Use an alcohol-based hand nurse epidemiologist with at least 60% alcohol, covering all surfaces of your hands and rubbing them together until they feel dry. ??? Avoid touching: Avoid touching your eyes, nose and mouth with unwashed hands. Avoid sharing personal household items. ??? Do not share: Do not share dishes, drinking glasses, cups, eating utensils, towels or bedding with other people in your home. ??? Wash thoroughly after use: After using these items, wash them thoroughly with soap and water or put them in the hydraulic press operator. Clean all high-touch surfaces every day. Clean high-touch surfaces in your isolation area ( sick room and bathroom) every day; let a caregiver clean and disinfect high-touch surfaces in other areas of the home. ??? Clean and disinfect: Routinely clean high-touch surfaces in your sick room and bathroom. Let someone else clean and disinfect surfaces in common areas, but not your bedroom and bathroom. ? If a caregiver or other person needs to clean and disinfect a sick person's bedroom or bathroom, they should do so on an as-needed basis. The caregiver/other person should wear a mask and wait as long as possible after the sick person has used the bathroom. ? High-touch surfaces include phones, remote controls, counters, tabletops, doorknobs, bathroom fixtures, toilets, keyboards, tablets and bedside tables. ??? Clean and disinfect areas that may have blood, stool, or body fluids on them. ??? Household store promoter and disinfectants: Clean the area or item with soap and water or another detergent if it is dirty. Then, use a household disinfectant. ?? Be sure to follow the instructions on the label to ensure safe and effective use of the product. Many products recommend keeping the surface wet for several minutes to ensure germs are killed. Many also recommend precautions such as wearing gloves and making sure you have good ventilation during use of the product. ?? Most EPA-registered household disinfectants should be effective. A full list of disinfectants can be found here: https://www.epa.gov/pesticide-registration/morj-l-hbjvxlybqpcni-wxa-gsvrjkt-nn rs-cov-2 documented in this encounter Plan of Treatment Not on file documented as of this encounter Visit Diagnoses Not on filedocumented in this encounter
--- OUTSIDE RECORDS SUMMARY | 2025-05-24 10:34 | XMS_ITS | Encounter Summary ---
Author Organization [employer] Address [address] [place] [address] Care Team Providers Care Supervisor Baking Name Role Phone Unavailable Primary Care Provider Unavailabl e Encounter Details Date Type Department Care Team (Late st Contact Info) Description 03/21/2021 Transcribed Document [facility] [place] Family Medicine [address] [place] [address] ProviderLibrado MD [address] [place] [address] Social History Tobacco Use Types Packs/Day Years Used Date Smoking Tobacco: Never Assessed Comments Unknown Sex and Gender Information Value Date Recorded Sex Assigned at Not on file Legal Sex Female 1:10 PM CDT Gender Identity Not on file Sexual Orientation Not on file documented as of this encounter Miscellaneous Notes * Cerner Conversion Note - Librado ProviderMD - 03/21/2021 6:36 AM CDT PAT Adult Entered On: 03/21/2021 6:50 EDT Performed On: 03/21/2021 6:36 EDT by BILLY ALFARO RN Vital Measurements Temperature Source : Oral Temperature Mode : Fahrenheit Temperature, Fahrenheit : 98.3 Deg F Clinical Temperature, C : 36.8 Deg C Pulse Method : Pulse Oximetry Pulse Source : Radial, Right Peripheral Pulse Rate : 59 bpm (LOW) Pulse Rhythm : Regular Respiratory Rate : 16 Breaths/Min Blood Pressure Location : Arm, left upper Blood Pressure Source : Non-Invasive BP Device Blood Pressure Position : Side, Left Systolic Blood Pressure : 155 mmHg (HI) Diastolic Blood Pressure : 91 mmHg (HI) Oxygen Saturation : 97 % Oxygen Therapy Mode : Room air BILLY ALFARO RN - 03/21/2021 6:36 EDT Pain Assessment Pain Assessment : Initial assessment Pain Scale Used : 0-10 Scale BILLY ALFARO RN - 03/21/2021 6:36 EDT Height and Weight, Clinical Dosing Height Source : Measured Height Entry Format : [place] Height, Feet : 5 ft(Converted to: 152 cm, 60 Inch) Height, Inches : 7 Inch(Converted to: 0 ft 7 Inch, 17.78 cm) Clinical Height : 170.18 cm Weight Source : Standing scale Weight Entry Format : [place] Clinical Dosing Weight : 93.18 kg Weight, Pounds : 205 lb Body Surface Area (BSA) : 2.05 m2 Body Mass Index : 32.2 kg/m2 (HI) [place] Body Weight : 61 kg BILLY ALFARO RN - 03/21/2021 6:36 EDT Health Histories Smoking Status : Former smoker, quit more than 30 days ago Smokeless Tobacco Status : Never BILLY ALFARO RN - 03/21/2021 6:36 EDT Social History (As Of: 03/21/2021 06:50:57 EDT) Tobacco: Former smoker, quit more than 30 days ago Smoking Status. Never Smokeless Tobacco Status. Years of Use: 15. Packs/Tins Daily: 1. Last Used: quit 1992. (Last Updated: 07/06/2018 10:27:50 EDT by Irma Holloway RN) Alcohol: Alcohol Use History Yes. Date/Time of Last Drink: rare. (Last Updated: 09/13/2015 14:10:46 EDT by Hanh Thorpe RN) Alcohol Use History No. (Last Updated: 01/25/2021 11:31:18 EST by Deisy Collins RN) Substance Abuse: Drug Use Hx: No. Use in Last 12 Months: No. (Last Updated: 09/13/2015 14:10:50 EDT by Hanh Thorpe RN) Drug Use Hx: No. Use in Last 12 Months: No. (Last Updated: 01/25/2021 11:31:22 EST by Deisy Collins, MAGALYS) Nutrition/Health: Caffeine intake amount: no. (Last Updated: 07/06/2018 10:28:20 EDT by Irma Holloway RN) Regular, Caffeine intake amount: maybe 2 cups per week. (Last Updated: 01/25/2021 11:31:46 EST by Deisy Collins, MAGALYS) Home/Environment: Lives with Spouse. (Last Updated: 07/06/2018 10:28:26 EDT by Irma Holloway, RN) Lives with Spouse. Home equipment: CPAP/BiPAP, Walker/Cane. Alcohol abuse in household: No. Substance abuse in household: No. Smoker in household: No. Injuries/Abuse/Neglect in household: No. 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 (Last Updated: 07/06/2018 10:28:40 EDT by Irma Holloway, RN) Infectious Disease History Has the patient ever been tested for COVID-19? : Yes, Patient stated results Negative Where was the COVID-19 Testing completed? : HEALTH DEPT RELEASED PT FROM A FALSE POSITIVE TAKEN 01-31-2021 Where are the test results? : Paper Copy on chart Date of COVID-19 test known? : Yes Date of COVID-19 Test : 01/31/2021 EST Does patient have symptoms of COVID-19? : No COVID19 Screening : No Experiencing Infectious Disease Symptoms : No symptoms Physical contact outside [place] in the last 30 days : No Infectious Disease History : Chicken pox/Shingles, Influenza, Measles, Mumps, Pertussis (Whooping cough) Exposure to Contagious Illness : No Tuberculosis Symptoms : None BILLY ALFARO RN - 03/21/2021 6:36 EDT COVID19 PreProcedure Screening Is this an Emergent or Add on Procedure? : No Date PreProcedure COVID-19 test known? : Yes Date of PreProcedure COVID-19 : 01/31/2021 EST Has patient been isolated since the test : Yes Exposed to COVID19 symptoms since test? : No BILLY ALFARO RN - 03/21/2021 6:36 EDT Anesthesia/Transfusion History Family History of Anesthesia Reaction : No prior transfusion(s) Transfusion History : Prior anesthesia reaction Type of Anesthesia Reaction : Excessive nausea/vomiting, Other: hard to wake up Family History of Anesthesia Reaction : None BILLY ALFARO RN - 03/21/2021 6:36 EDT Functional Assessment Functional ADL Evaluation Index EBN Bathing : Independent (2) Dressing : Independent (2) Toileting : Independent (2) Transferring Bed or Chair : Independent (2) Continence : Independent (2) Feeding : Independent (2) BILLY ALFARO RN - 03/21/2021 6:36 EDT ADL Index Score : 12 BILLY ALFARO RN - 03/21/2021 6:36 EDT Advance Directive Patient has Advance Directive *Q : No, patient refuses Advance Directive information BILLY ALFARO RN - 03/21/2021 6:36 EDT Spiritual/Cultural Needs Any Spiritual/Cultural Needs or Requests : Yes BILLY ALFARO RN - 03/21/2021 6:36 EDT [place] Suicide Severity Rating Scale (C-SSRS) CSSRS Past Month Wish to be : No CSSRS Past Month Suicidal Thoughts : No CSSRS Lifetime Suicide Behavior : No Suicide Severity Rating Score : 0 Suicide Severity Rating : No Additional Care Required at this time Thoughts of Harming/Killing Others : No BILLY ALFARO RN - 03/21/2021 6:36 EDT Psychosocial History Do You Have a History of the Following? : Patient denies history Currently in Unsafe Situation : No Do You Have a Support System? : Yes BILLY ALFARO RN - 03/21/2021 6:36 EDT Teaching/Learning Assessment Barriers To Learning : None evident Individuals Taught : Patient, Spouse Readiness to Learn : Cooperative Baseline Knowledge of Topic : Good Readiness to Learn : Explanation, Printed materials Learning Style Preferences Patient : Printed materials, Verbal explanation Learning Style Preferences Family : Printed materials, Verbal explanation BILLY ALFARO RN - 03/21/2021 6:36 EDT Education Topics, Periop Preadmission Perioperative Education Grid Arrival Time/Place : Verbalizes understanding Falls : Verbalizes understanding IV's : Verbalizes understanding NPO Status/Directions : Verbalizes understanding Pain Management : Verbalizes understanding Preprocedure Preparations : Verbalizes understanding Preprocedure Tests/Labs : Verbalizes understanding Responsible Adult : Verbalizes understanding Take/Hold Medications Pre-Procedure : Verbalizes understanding BILLY ALFARO RN - 03/21/2021 6:36 EDT General Info Arrived From : Home Mode of Arrival on Unit : Ambulatory Patient Arrival Date/Time : 03/21/2021 5:20 EDT Legal Guardian : Spouse Want Family/Rep/Phys Notified of Admit : No Emergency Contact #1 : Sandip Tavares Emergency Contact #1 or [phone] Emergency Contact #1 Relationship : Spouse Emergency Contact #2 : . Emergency Contact #2 Phone Number : . Emergency Contact #2 Relationship : . Information Obtained From : Patient Primary Language : Persian Preferred Communication Mode : Verbal Communication Barrier : None Band Builder Needed : No Currently Lactating : No Status : Menopause BILLY ALFARO RN - 03/21/2021 6:36 EDT Jt Scale Jt Sensory Perception : No impairment Jt Moisture : Rarely moist Jt Activity : Walks frequently Jt Mobility : Slightly limited Jt Nutrition : Excellent Jt Friction and Shear : No apparent problem Jt Score : 22 BILLY ALFARO RN - 03/21/2021 6:36 EDT Sleep Apnea Risk Assmt BiPAP/CPAP Ordered for Home Use : Yes Hx of Obstructive Sleep Apnea Diagnosis : Yes BiPAP/CPAP Used at Home : Yes Age over 50 Years Old : Yes Gender Male : No BILLY ALFARO RN - 03/21/2021 6:36 EDT Pain Scale Intensity : 0 BILLY ALFARO RN - 03/21/2021 6:36 EDT Image 4 - Images currently included in the form version of this document have not been included in the text rendition version of the form. Electronically signed by Kristina Dobbs Conversion Organic Extractions Technician Cerner at 03/21/2023 1:09 PM CDT documented in this encounter Plan of Treatment Not on file documented as of this encounter Visit Diagnoses Not on filedocumented in this encounter
--- OUTSIDE RECORDS SUMMARY | 2025-05-24 10:34 | XMS_ITS | Encounter Summary ---
Author Organization [employer] Address [address] [place] [address] Care Team Providers Care Investor Relations Specialist Name Role Phone Unavailable Primary Care Provider Unavailabl e Encounter Details Date Type Department Care Team (Late st Contact Info) Description 03/21/2021 Transcribed Document [facility] [place] [address] [place] [address] ProviderLibrado MD [address], [place] [id number] Social History Tobacco Use Types Packs/Day Years Used Date Smoking Tobacco: Never Assessed Comments Unknown Sex and Gender Information Value Date Recorded Sex Assigned at Not on file Legal Sex Female 1:10 PM CDT Gender Identity Not on file Sexual Orientation Not on file documented as of this encounter Miscellaneous Notes * Cerner Conversion Note - Historical ProviderMD - 03/21/2021 7:52 AM CDT [facility] Summary Primary Physician: DARY GAMEZ JR, JR, MD-ORT Finalized Date/Time: 03/21/21 10:11:04 Pt. Name: JOIE TAVARES/Sex: 1960 Female Med Rec #: [id number] Physician: DARY GAMEZ JR, JR, MD-ORT Financial #: [id number] Pt. Type: O Room/Bed: EAS/1 Admit/Disch: 03/21/21 04:39:00 - Institution: [facility] PACU Case Times Entry 1 In PACU I 03/21/21 09:16:00 Ready for PACU 03/21/21 10:10:00 Discharge Discharge from PACU 03/21/21 10:10:00 I Last Modified By: MAN GOODMAN 03/21/21 10:10:56 [facility] PACU Case Times Audit 03/21/21 10:10:56 Senior Program Manager: VALERIA Modifier: COLEMAM <+> 1 Ready for PACU Discharge <+> 1 Discharge from PACU I Finalized By: MAN GOODMAN Document Signatures Signed By: MAN GOODMAN 03/21/21 10:11 Electronically signed by Dilia [facility] Conversion Service Desk Manager Cerner at 03/21/2023 1:17 PM CDT documented in this encounter Plan of Treatment Not on file documented as of this encounter Visit Diagnoses Not on filedocumented in this encounter
--- OUTSIDE RECORDS SUMMARY | 2025-05-24 10:34 | XMS_ITS | Encounter Summary ---
Author Organization [employer] Address [address] [place] [address] Care Team Providers Care Licensed Loan Officer Name Role Phone Unavailable Primary Care Provider Unavailabl e Encounter Details Date Type Department Care Team (Late st Contact Info) Description 03/22/2021 Transcribed Document [facility] [place] Family Medicine [address] [place] [address] ProviderLibrado MD [address] [place], [place] [id number] Social History Tobacco Use Types Packs/Day Years Used Date Smoking Tobacco: Never Assessed Comments Unknown Sex and Gender Information Value Date Recorded Sex Assigned at Not on file Legal Sex Female 1:10 PM CDT Gender Identity Not on file Sexual Orientation Not on file documented as of this encounter Miscellaneous Notes * Cerner Conversion Note - Librado ProviderMD - 03/22/2021 11:13 AM CDT Patient: JOIE TAVARES Age: 60 years Sex: Female : 1960 Associated Diagnoses: None Author: Darek Elena, Pharmacist Pharmacy verified patient's allergies and home medication list with the patient and their home pharmacy. Records are as follows: Home Medications (13) Active allopurinol 100 mg, Oral, Daily dicyclomine 20 mg oral tablet 20 mg = 1 Tab, Oral, BID fluticasone 50 mcg/inh nasal spray 50 mcg, PRN, Nasal, BID furosemide 40 mg, PRN, Oral, Daily loratadine 10 mg, Oral, Daily losartan 25 mg oral tablet 25 mg = 1 Tab, Oral, Daily meloxicam 15 mg, Oral, Daily metoprolol tartrate 150 mg, Oral, BID Singulair 10 mg oral tablet 10 mg = 1 Tab, Oral, Daily SUMAtriptan 100 mg, PRN, Oral, Daily Tylenol Extra Strength 500 mg oral tablet 1,000 mg = 2 Tab, Oral, BID venlafaxine 37.5 mg oral capsule, extended release 37.5 mg = 1 Cap, Oral, QPM Vitamin D3 5,000 Int Units, Oral, Daily Allergies (10) Active Reaction amitriptyline Aphasia Latex Itching Peanuts Tingling Cats Congestion chlorhexidine topical Rash Dexpak JrLove Taperpak Migraine Dilaudid Slow to wake up after anesthesia Mold Congestion Pennsaid Itching tyllenol 3 headache Thank you, Lida EugeneD Electronically signed by Kristina Dobbs Conversion Medical Transcription Supervisor Cerner at 03/21/2023 1:10 PM CDT documented in this encounter Plan of Treatment Not on file documented as of this encounter Visit Diagnoses Not on filedocumented in this encounter
--- OUTSIDE RECORDS SUMMARY | 2025-05-24 10:34 | XMS_ITS | Encounter Summary ---
Author Organization [employer] Address [address] [place] [address] Care Team Providers Care Optimization Consultant Name Role Phone Unavailable Primary Care Provider Unavailabl e Encounter Details Date Type Department Care Team (Late st Contact Info) Description 03/22/2021 Transcribed Document [facility] [place] [address] [place] [address] ProviderLibrado MD [address] [place] [id number] Social History Tobacco Use Types Packs/Day Years Used Date Smoking Tobacco: Never Assessed Comments Unknown Sex and Gender Information Value Date Recorded Sex Assigned at Not on file Legal Sex Female 1:10 PM CDT Gender Identity Not on file Sexual Orientation Not on file documented as of this encounter Miscellaneous Notes * Cerner Conversion Note - Historical ProviderMD - 03/22/2021 1:23 PM CDT Nursing Discharge Summary Entered On: 03/22/2021 13:24 EDT Performed On: 03/22/2021 13:23 EDT by HECTOR BECKWITH RN Discharge Documentation Discharge Date/Time : 03/22/2021 13:07 EDT Transporter Signature : Columba Gold China Decorator-Health Unit Coord Patient Disposition, General : Discharge Discharge To : Home with ambulatory/outpatient follow-up Mode Of Departure, General Discharge : Private vehicle, Wheelchair with adult Accompanied By, Discharge : Spouse IV Discontinued : Yes Personal Belongings With Patient : Yes Pt's Own Supply of Medications Returned : No patient supply of medications to return Prescriptions Given to Patient : No Medications Given to Patient : Yes Discharge Instructions Reviewed With, Opportunity For Questions Given : Patient, Spouse Patient Education Completed : Yes Teaching Method : Explanation, Printed materials Teaching Evaluation : Verbalizes understanding HECTOR BECKWITH RN - 03/22/2021 13:23 EDT documented in this encounter Plan of Treatment Not on file documented as of this encounter Visit Diagnoses Not on filedocumented in this encounter
--- OUTSIDE RECORDS SUMMARY | 2025-05-24 10:34 | XMS_ITS | Encounter Summary ---
Author Organization [employer] Address [address] [place] [address] Care Team Providers Care Contract Engineer Name Role Phone Unavailable Primary Care Provider Unavailabl e Encounter Details Date Type Department Care Team (Late st Contact Info) Description 03/21/2021 Transcribed Document [facility] [place] Family Medicine [address] [place] [address] ProviderLibrado MD [address] [place] [address] Social History Tobacco Use Types Packs/Day Years Used Date Smoking Tobacco: Never Assessed Comments Unknown Sex and Gender Information Value Date Recorded Sex Assigned at Not on file Legal Sex Female 1:10 PM CDT Gender Identity Not on file Sexual Orientation Not on file documented as of this encounter Miscellaneous Notes * Cerner Conversion Note - Historical ProviderMD - 03/21/2021 6:45 AM CDT Spiritual Care Short Form Entered On: 03/21/2021 7:30 EDT Performed On: 03/21/2021 6:45 EDT by DAYNA OCONNOR Chaplain-Non Cert General Information, Spiritual Care Spiritual Care Referred by : Nurse Reason for Visit : Initial Ministry Provided to : Patient, Family/Significant other Intervention/Comment/Summary Points : Pre-surgery visit to patient, her was with her. Patient was cheerful, ready for her surgery because she is looking forward to better mobility and less pain. Prayed with them for paient's surgery and recovery. Spiritual/Emotional Acuity : Low Spiritual Framework : Integrated, provides strength/resource Yazidism Preference : Synagogue DAYNA OCONNOR Chaplain-Non Cert - 03/21/2021 7:29 EDT documented in this encounter Plan of Treatment Not on file documented as of this encounter Visit Diagnoses Not on filedocumented in this encounter
--- OUTSIDE RECORDS SUMMARY | 2025-05-24 10:34 | XMS_ITS | Encounter Summary ---
Author Organization [employer] Address [address] [place] [id number] Care Team Providers Care Steno Typist Name Role Phone Unavailable Primary Care Provider Unavailabl e Encounter Details Date Type Department Care Team (Late st Contact Info) Description 03/22/2021 Transcribed Document [facility] [place] [facility] [place] [address] [place] [address] ProviderLibrado MD [address] [place], [place] [id number] Social History Tobacco Use Types Packs/Day Years Used Date Smoking Tobacco: Never Assessed Comments Unknown Sex and Gender Information Value Date Recorded Sex Assigned at Not on file Legal Sex Female 1:10 PM CDT Gender Identity Not on file Sexual Orientation Not on file documented as of this encounter Miscellaneous Notes * Cerner Conversion Note - Librado ProviderMD - 03/22/2021 12:08 PM CDT Patient: JOIE TAVARES Age: 60 years Sex: Female : 1960 Associated Diagnoses: Unilateral primary osteoarthritis, right hip; Status post total hip replacement, right; Right hip pain; HTN (hypertension); YOANA on CPAP; RA (rheumatoid arthritis); Migraine; Impaired vision; IBS (irritable bowel syndrome); Obesity (BMI 30.0-34.9) Author: MADDIE WILLIAM MD-INT 03/22/2021 Hospitalist medicine consult discharge, progress and sign off note, internal medicine, Maddie William MD Basic Information ???Seen and examined ???Doing well ???Had a good night last night ???Awake alert cooperative responsive under no acute distress ???Pain well controlled ???High spirit ???Eager to go home ???No chest pain or trouble breathing ???Participating well with PT/OT ???No headache or dizziness when he got up with PT/OT ???No soreness after PT/OT ???Released by PT/OT to go home ???Tolerating well oral p.o. intake ???No nausea or vomiting ???No BM but passing gas ???No trouble with urination ???Urine output is adequate ???Vitals reviewed ???Labs reviewed ???Lab results discussed with the patient ???Released by Dr. Calderon to go home ???Discharge medications seen, reviewed and reconciled ???DVT prophylaxis and anticoagulation as per Dr Calderon protocol ???Patient wants and excited to be discharged home ???Patient is medically stable Review of Systems Constitutional: No weakness, No fatigue. Eye: No recent visual problem, No double vision, No visual disturbances. Ear/Nose/Mouth/Throat: No nasal congestion, No sore throat. Respiratory: No shortness of breath, No cough, No wheezing. Cardiovascular: No chest pain, No tachycardia. Gastrointestinal: No nausea, No vomiting. Genitourinary: Negative. Musculoskeletal: Negative. Integumentary: No rash, No pruritus. Neurologic: Alert and oriented X4, no dizziness. Health Status Allergies: Allergies (10) Active Reaction amitriptyline Aphasia Latex Itching Peanuts Tingling Cats Congestion chlorhexidine topical Rash Dexpak JrLove Taperpak Migraine Dilaudid Slow to wake up after anesthesia Mold Congestion Pennsaid Itching tyllenol 3 headache Current medications: (Selected) Inpatient Medications Ordered Benadryl: 25 mg, Oral, Tab, On-CALL, PRN for Other (See Comment), Routine, Start 03/21/21 18:50:00 EDT, 03/21/21 18:50:00 EDT Chloraseptic Menthol 1.4% topical spray: 5 [place], Oral, [place], Q2H, PRN for Sore Throat, Routine, Start 03/21/21 18:50:00 EDT Dextrose 5% in Lactated Ringers intravenous solution 1,000 mL: 1,000 mL, Bag Volume (mL) = 1,000, IntraVENous, start date 03/21/21 10:39:00 EDT, Routine, mL/Hr100, 2.1, m2 Dulcolax Laxative: 10 mg, Rectal, Supp, Daily, PRN for Constipation, Routine, Start 03/21/21 18:50:00 EDT, 03/21/21 18:50:00 EDT DuoNeb 0.5 mg-2.5 mg/3 mL inhalation solution: 3 mL, Nebulized Inhalation, Inh, Q4H, PRN for Wheezing, Routine, Start 03/21/21 18:50:00 EDT Effexor XR: 37.5 mg, Oral, XR Cap, QPM, Routine, Start 03/21/21 21:00:00 EDT, 03/21/21 19:11:00 EDT Flexeril: 10 mg, Oral, Tab, TID, PRN for Muscle Spasms, Start 03/21/21 19:10:00 EDT HYDROmorphone: 0.5 mg, IV Push, Inj, Q3H, PRN for Pain (Severe 7-10), Routine, Start 03/21/21 10:39:00 EDT, 03/21/21 10:39:00 EDT Keflex: 500 mg, Oral, Cap, Q6H, order duration: 3 Day(s), Routine, Start 03/21/21 18:00:00 EDT, Stop 03/24/21 17:59:00 EDT, Indication: Surgical Prophylaxis Milk of Magnesia 8% oral suspension: 15 mL, Oral, Liquid, Q6H, PRN for Constipation, Routine, Start 03/21/21 18:50:00 EDT Mylanta: 30 mL, Oral, Liquid, Q6H, PRN for Indigestion, Routine, Start 03/21/21 18:50:00 EDT Normal Saline Flush: 10 mL, IV Push, Inj, Q12H, Routine, Start 03/21/21 10:53:00 EDT Normal Saline Flush: 10 mL, IV Push, Inj, See Comment, PRN for Other (See Comment), Routine, Start 03/21/21 10:39:00 EDT Phenergan: 12.5 mg, IV Push, Inj, Q6H, PRN for Nausea, Routine, Start 03/21/21 18:50:00 EDT, 03/21/21 18:50:00 EDT Phenergan: 12.5 mg, Oral, Tab, Q6H, PRN for Nausea, Routine, Start 03/21/21 18:50:00 EDT, 03/21/21 18:50:00 EDT SUMAtriptan: 100 mg, Oral, Tab, Daily, PRN for Migraine Headache, Routine, Start 03/21/21 18:52:00 EDT, 03/21/21 18:52:00 EDT Singulair: 10 mg, Oral, Tab, Daily, Routine, Start 03/22/21 9:00:00 EDT, 03/21/21 18:52:00 EDT Vitamin D3: 5,000 Units, Oral, Tab, Daily, Routine, Start 03/22/21 9:00:00 EDT, 03/21/21 18:52:00 EDT Zofran: 4 mg, IV Push, Inj, Q4H, PRN for Nausea, Routine, Start 03/21/21 18:50:00 EDT, 03/21/21 18:50:00 EDT acetaminophen: 500 mg, Oral, Tab, Q6H, PRN for Pain (Mild 1-3), Routine, Start 03/21/21 10:39:00 EDT, 03/21/21 10:39:00 EDT allopurinol: 100 mg, Oral, Tab, Daily, Routine, Start 03/22/21 9:00:00 EDT, 03/21/21 18:52:00 EDT aspirin: 81 mg, Oral, EC Tab, BID, Routine, Start 03/21/21 21:00:00 EDT, 03/21/21 10:39:00 EDT docusate calcium: 240 mg, Oral, Cap, Daily, PRN for Constipation, Routine, Start 03/21/21 18:50:00 EDT, 03/21/21 18:50:00 EDT gabapentin: 300 mg, Oral, Cap, At Bedtime, Routine, Start 03/21/21 21:00:00 EDT, 03/21/21 10:39:00 EDT loratadine: 10 mg, Oral, Tab, Daily, Routine, Start 03/22/21 9:00:00 EDT, 03/21/21 18:52:00 EDT losartan: 25 mg, Oral, Tab, Daily, Routine, Start 03/22/21 9:00:00 EDT, 03/21/21 18:52:00 EDT metoprolol tartrate: 150 mg, Oral, Tab, BID, Routine, Start 03/21/21 21:00:00 EDT, 03/21/21 18:52:00 EDT ondansetron: 4 mg, Oral, Tab, Q6H, PRN for Nausea/Vomiting, Routine, Start 03/21/21 10:39:00 EDT, 03/21/21 10:39:00 EDT oxyCODONE: 10 mg, Oral, Tab, Q4H, PRN for Pain (Severe 7-10), Routine, Start 03/21/21 10:39:00 EDT, 03/21/21 10:39:00 EDT oxyCODONE: 5 mg, Oral, Tab, Q4H, PRN for Pain (Moderate 4-6), Routine, Start 03/21/21 10:39:00 EDT, 03/21/21 10:39:00 EDT traZODone: 50 mg, Oral, Tab, At Bedtime, PRN for Insomnia, Routine, Start 03/21/21 18:50:00 EDT, 03/21/21 18:50:00 EDT Prescriptions Prescribed acetaminophen 500 mg oral capsule: 2 Cap, Oral, TID, X 30 Day(s), # 180 Cap, 0 Refill(s), called to pharmacy (Rx) aspirin 81 mg oral delayed release tablet: 1 Tab, Oral, Tab, BID, # 90 Tab, 0 Refill(s), called to pharmacy (Rx) cefadroxil 500 mg oral capsule: 1 Cap, Oral, Cap, Q12H, X 6 Day(s), # 12 Cap, 0 Refill(s), called to pharmacy (Rx) docusate sodium 100 mg oral tablet: 1 Tab, Oral, Tab, BID, PRN for constipation, # 60 Tab, 0 Refill(s), Pharmacy: [facility], 170.18, cm, 03/21/21 10:42:00 EDT, CLINICALHEIGHT, 93.18, kg, 03/21/21 10:42:00 EDT, CLINICALWEIGHT oxyCODONE 5 mg oral tablet: See Instructions, Take 1-2 tab every 6 hours as needed for severe pain, # 20 Tab, 0 Refill(s), called to pharmacy (Rx) traMADol 50 mg oral tablet: See Instructions, Take 1-2 tab every 6 hours as needed for moderate severe pain, # 60 Tab, 0 Refill(s), called to pharmacy (Rx) Documented Medications Documented SUMAtriptan: 100 mg, Oral, Daily, PRN as needed for migraine headache, 0 Refill(s) Singulair 10 mg oral tablet: 1 Tab, Oral, Daily, 0 Refill(s) Vitamin D3: 5,000 Int Units, Oral, Daily, 0 Refill(s) allopurinol: 100 mg, Oral, Daily, 0 Refill(s) dicyclomine 20 mg oral tablet: 1 Tab, Oral, BID, 0 Refill(s) fluticasone 50 mcg/inh nasal spray: 50 mcg, Nasal, BID, PRN Allergies, 0 Refill(s) furosemide: 40 mg, Oral, Daily, PRN Edema, 0 Refill(s) loratadine: 10 mg, Oral, Daily, 0 Refill(s) losartan 25 mg oral tablet: 1 Tab, Oral, Daily, 0 Refill(s) metoprolol tartrate: 150 mg, Oral, BID, 0 Refill(s) venlafaxine 37.5 mg oral capsule, extended release: 1 Cap, Oral, QPM, 0 Refill(s), Medications (31) Active Scheduled: (11) #NaCl 0.9% *FLUSH* inj 10 mL 10 mL, IV Push, Q12H allopurinol 100 mg tab 100 mg 1 Tab, Oral, Daily aspirin EC 81 mg tab 81 mg 1 Tab, Oral, BID cephalexin 250 mg cap 500 mg 2 Cap, Oral, Q6H cholecalciferol 1,000 unit tab 5,000 Units 5 Tab, Oral, Daily gabapentin 300 mg cap 300 mg 1 Cap, Oral, At Bedtime loratadine 10 mg tab 10 mg 1 Tab, Oral, Daily losartan 50 mg tab 25 mg 0.5 Tab, Oral, Daily metoprolol tartrate 50 mg tab 150 mg 3 Tab, Oral, BID montelukast 10 mg tab 10 mg 1 Tab, Oral, Daily venlafaxine XR 37.5 mg cap 37.5 mg 1 Cap, Oral, QPM Continuous: (1) D5/LR 1,000 mL 1,000 mL, IntraVENous PRN: (19) #NaCl 0.9% *FLUSH* inj 10 mL 10 mL, IV Push, See Comment acetaminophen 500 mg tab 500 mg 1 Tab, Oral, Q6H al hydrox/mag hydrox/simeth 30 mL liq 30 mL, Oral, Q6H albuterol-ipratropium inh 3 mL 3 mL, Nebulized Inhalation, Q4H bisacodyl 10 mg supp 10 mg 1 Supp, Rectal, Daily cyclobenzaprine 10 mg tab 10 mg 1 Tab, Oral, TID diphenhydrAMINE 25 mg tab 25 mg 1 Tab, Oral, On-CALL docusate calcium 240 mg cap 240 mg 1 Cap, Oral, Daily HYDROmorphone 1 mg/1 mL inj 0.5 mg 0.5 mL, IV Push, Q3H magnesium hydroxide 8% liq 30 mL 15 mL, Oral, Q6H ondansetron 4 mg tab 4 mg 1 Tab, Oral, Q6H ondansetron 4 mg/2 mL inj 4 mg 2 mL, IV Push, Q4H oxyCODONE 5 mg tab 5 mg 1 Tab, Oral, Q4H oxyCODONE 5 mg tab 10 mg 2 Tab, Oral, Q4H phenol 1.4% throat spray 5 [place], Oral, Q2H promethazine 25 mg tab 12.5 mg 0.5 Tab, Oral, Q6H promethazine 25 mg/1 mL inj 12.5 mg 0.5 mL, IV Push, Q6H SUMAtriptan 25 mg tab 100 mg 4 Tab, Oral, Daily traZODone 50 mg tab 50 mg 1 Tab, Oral, At Bedtime Problem list: Active Problems (15) Arthritis Bladder spasms central vein retinal occlusion, Right Eye Fibromyalgia Hip pain, right History of obstructive sleep apnea HTN (hypertension) IBS (irritable bowel syndrome) Impaired vision Kidney stone with Stent Placed Migraine YOANA on CPAP RA (rheumatoid arthritis) Seasonal allergies Sinusitis Physical Examination VS/Measurements Vital Measurements 03/22/2021 9:45 EDT Temperature Source Oral Temperature Mode Fahrenheit Temperature, Fahrenheit 97.5 Deg F Clinical Temperature, C 36.4 Deg C Heart Rate Monitored 68 bpm Respiratory Rate 16 Breaths/Min Oxygen Saturation 97 % 03/22/2021 8:33 EDT Systolic Blood Pressure 125 mmHg Systolic Blood Pressure 125 mmHg Diastolic Blood Pressure 79 mmHg Diastolic Blood Pressure 79 mmHg Heart Rate, Apical 73 bpm 03/22/2021 6:33 EDT Systolic Blood Pressure 126 mmHg Diastolic Blood Pressure 64 mmHg Mean Arterial Pressure (MAP)-BMDI 78 Temperature Source Oral Temperature Mode Fahrenheit Temperature, Fahrenheit 97.4 Deg F Clinical Temperature, C 36.3 Deg C Heart Rate Monitored 66 bpm Respiratory Rate 16 Breaths/Min Oxygen Saturation 100 % Oxygen Therapy Mode Room air General: Alert and oriented, No acute distress. Eye: Pupils are equal, round and reactive to light, Extraocular movements are intact. HENT: Oral mucosa is moist. Neck: Supple, No carotid bruit, No jugular venous distention, No lymphadenopathy, No thyromegaly. Respiratory: Lungs are clear to auscultation, Breath sounds are equal. Cardiovascular: Normal rate, Regular rhythm, No murmur. Gastrointestinal: Soft, Non-tender, Normal bowel sounds, No organomegaly. Genitourinary: No costovertebral angle tenderness, No inguinal tenderness. Lymphatics: No lymphadenopathy neck, axilla, groin. Musculoskeletal: Normal strength, No swelling. Integumentary: Warm, Intact, No rash, WOUND STABLE, WOUND STABLE. Neurologic: Alert, Oriented, No focal deficits. Psychiatric: Cooperative, Appropriate mood & affect. Review / Management Results review: All Results 03/22/2021 4:07 EDT Sodium Level 142 mmol/L Potassium Level 4.3 mmol/L Chloride Level 108 mmol/L Carbon Dioxide Level 27 mmol/L Anion Gap 11 Glucose Level 133 mg/dL HI Blood Urea Nitrogen 17 mg/dL Creatinine Level 0.82 mg/dL eGFR >60 mL/min/1.73m2 eGFR NonAfrican >60 mL/min/1.73m2 Bun/Creatinine 20.7 HI Calcium Level 8.7 mg/dL Hgb 14.1 Gram/dL Hct 44.0 % . Condition: Stable. Discharge Plan Discharge Summary Plan Discharge Status: stable. Orders Order Profile (Selected) Inpatient Orders Ordered Discharge Notification Pharmacy: Start: 03/22/21 12:07:45 EDT Discharge: Start: 03/22/21 12:07:00 EDT, Discharge to: Home, Other DC instructions: Okay to DC home from medical standpoint tentative discharge by Dr. Morales PT/OT. Nursing staff and case management to follow-up on Dr. Morales PT/OT recommendations. Diagnosis Unilateral primary osteoarthritis, right hip - Admitting, Medical. Status post total hip replacement, right - Admitting, Medical. Right hip pain - Admitting, Medical. HTN (hypertension) - Admitting, Medical. YOANA on CPAP - Admitting, Medical. RA (rheumatoid arthritis) - Admitting, Medical. Migraine - Admitting, Medical. Impaired vision - Admitting, Medical. IBS (irritable bowel syndrome) - Admitting, Medical. Obesity (BMI 30.0-34.9) - Admitting, Medical. Course Improving. Stable. Plan/ pt is HD & CLINICALLY STABLE AFEBRILE OK TO D/C HOME ALL CONSULTANTS AGREE FOR HER D/C HOME ON HH / OUTPT.REHAB. . Orders Order Profile (Selected) Prescriptions Prescribed acetaminophen 500 mg oral capsule: 2 Cap, Oral, TID, X 30 Day(s), # 180 Cap, 0 Refill(s), called to pharmacy (Rx) aspirin 81 mg oral delayed release tablet: 1 Tab, Oral, Tab, BID, # 90 Tab, 0 Refill(s), called to pharmacy (Rx) cefadroxil 500 mg oral capsule: 1 Cap, Oral, Cap, Q12H, X 6 Day(s), # 12 Cap, 0 Refill(s), called to pharmacy (Rx) docusate sodium 100 mg oral tablet: 1 Tab, Oral, Tab, BID, PRN for constipation, # 60 Tab, 0 Refill(s), Pharmacy: [facility], 170.18, cm, 03/21/21 10:42:00 EDT, CLINICALHEIGHT, 93.18, kg, 03/21/21 10:42:00 EDT, CLINICALWEIGHT oxyCODONE 5 mg oral tablet: See Instructions, Take 1-2 tab every 6 hours as needed for severe pain, # 20 Tab, 0 Refill(s), called to pharmacy (Rx) traMADol 50 mg oral tablet: See Instructions, Take 1-2 tab every 6 hours as needed for moderate severe pain, # 60 Tab, 0 Refill(s), called to pharmacy (Rx) Documented Medications Documented SUMAtriptan: 100 mg, Oral, Daily, PRN as needed for migraine headache, 0 Refill(s) Singulair 10 mg oral tablet: 1 Tab, Oral, Daily, 0 Refill(s) Vitamin D3: 5,000 Int Units, Oral, Daily, 0 Refill(s) allopurinol: 100 mg, Oral, Daily, 0 Refill(s) dicyclomine 20 mg oral tablet: 1 Tab, Oral, BID, 0 Refill(s) fluticasone 50 mcg/inh nasal spray: 50 mcg, Nasal, BID, PRN Allergies, 0 Refill(s) furosemide: 40 mg, Oral, Daily, PRN Edema, 0 Refill(s) loratadine: 10 mg, Oral, Daily, 0 Refill(s) losartan 25 mg oral tablet: 1 Tab, Oral, Daily, 0 Refill(s) metoprolol tartrate: 150 mg, Oral, BID, 0 Refill(s) venlafaxine 37.5 mg oral capsule, extended release: 1 Cap, Oral, QPM, 0 Refill(s). Impression and Plan [id number] mn patient seen and examined, medical record reviewed, labs reviewed, vitals reviewed, medications reviewed and reconciled, discussed with Pharm.D., discussed with the patient and her t, discussed with the staff, discussed with PT/OT, discussed with case management discharge orders placed, discharge summary note dictated. documented in this encounter Plan of Treatment Not on file documented as of this encounter Visit Diagnoses Not on filedocumented in this encounter
--- OUTSIDE RECORDS SUMMARY | 2025-05-24 10:34 | XMS_ITS | Data Portability ---
Author Organization [facility] Address [address] [place] [address] Care Team Providers Care Drawer Fitter Name Role Phone HELIO ROSENBERG Primary Care Provider [phone] HELIO ROSENBERG Referring Provider COLIN SCHULER Primary Care Provider [phone] Assessment Encounter Date Assessment Date Assessment LastModified by Organization Details LastModified Time 10/17/2021 10/17/2021 Ms Tavares is a 61-year-old female who presents today for follow-up visit after injection therapy. She has a history of both radicular and axial low back pain. She describes lumbosacral pain with neurogenic claudication. She states that her last lumbar epidural steroid injection has now worn off. Of note, she was able to get 80% relief for 3 months. She would like this repeated again. For her axial low back pain she did have a bilateral lumbar radiofrequency ablation L3-5 on 09/12/2021. She states that she is getting about 50% ongoing relief from that procedure. She did note at that procedure she went to [place] and did a lot of walking for her trip. She states that last week she went and had imaging completed of her kidneys. She states that she has kidney stones. She states her pain today is worse compared to last visit. 09/12/2021 RFA Bilateral L3-L5; 50% pain relief ongoing 05/31/2021 #1 ILESI L3/4; 80% pain relief for 3 months 1. X-ray of the lumbar spine 05/19/2020 demonstrates lumbar spondylosis with degenerative disc and facet arthrosis at multiple levels. There is 8 mm anterolisthesis at L4-5 and facet arthritic changes at L3-4, L4-5, and L5-S1. She has not prescribed any medications from this clinic. The plan for today is to order injection therapy. I will place an order for a therapeutic interlaminar lumbar epidural steroid injection L3/[address] Brooks. She will follow-up after the procedure for reassessment. [email or web address] Not available 10/17/2021 19:53:31 Plan of Treatment Reminders Order Date Submit Date Provider Last Modified By Organization Details Last Modified Time Details Appointments None recorded. Lab None recorded. Referral None recorded. Procedures epidural steroid injection, lumbar interlamina r (PROC) 2020 021 [email or web address] Not available 08:42:02 lumbar radiofreque ncy ablation (PROC) - RFA Bilateral L3-L5; 2 weeks [facility] Rui 2020 021 [email or web address] Not available 15:26:13 medial branch block, lumbar (PROC) - #2 LMBB Bilateral L3-L5 in 2 weeks [facility] Rui 2020 021 [email or web address] Not available 11:36:05 Surgeries None recorded. Imaging None recorded. Medication Orders None recorded. Patient TargetsNo targets recorded. Patient Instructions Encounter Date Encounter Id Patient Instructions Last Modified By Organization Details Last Modified Time 10/17/2021 [id number] Much of this encounter is an electronic yardage control clerk/castro slation of spoken language to printed text. The electronic translation of spoken language may permit erroneous or at times nonsensical words or phrases to be inadvertently transcribed. Although I have reviewed the note for such errors, some may still exist. [email or web address] Not available 10/17/2021 13:43:07 Reason for Referral None Reported. Problems Name Problem SNOMED Code Status Onset Date Resolution Date Notes Provider Name and Address Organization Details Recorded Time Migraine 64736764 Active 2019 MICHOACANO Mock - [facility] 0 09:36:12 Hypertensi ve disorder 01143803 Active 2019 MICHOACANO Mock - [facility] 0 09:36:24 Seronegati ve rheumatoid arthritis 015580847 Active 2019 Barbara Muñoz null, [place] - [facility] 0 09:36:40 Fibromyalg ia 711237553 Active 2019 Barbara Muñoz null, [place] - [facility] 0 09:36:53 Low back pain 415355603 Active 2019 Barbara Muñoz null, [place] - [facility] 0 09:37:00 Hammer toe 350861279 Active 2019 Barbara Muñoz null, [place] - [facility] 0 09:37:12 Pain in right knee Active 2019 Barbara Muñoz null, [place] - [facility] 0 09:37:43 Whooping cough-like syndrome 649100054 Active 2019 Barbara Muñoz null, [place] - [facility] 0 09:38:15 Bilateral elbow tendinitis 9476302793036 9102 Active 2019 Barbara Muñoz null, [place] - [facility] 0 09:38:30 Fusion Active 2019 wrist Barbara Muñoz null, [place] - [facility] 0 09:39:05 Lumbar radiculopa thy 656241051 Active 2020 SADAF LOAIZA NP [address] [place], [address] , [place] - [facility] 1 10:05:48 Spinal stenosis of lumbar region 97888188 Active 2020 SADAF LOAIZA NP [address] [place], [address] , [place] - [facility] 1 10:05:49 Interverte bral disc disorder 64395909 Active 2020 SADAF LOAIZA NP [address] [place], [address] , [place] - [facility] 1 10:05:51 Lumbar spondylosi s 071873726 Active 2020 SADAF LOAIZA NP [address] [place], [address] , [place] - [facility] 10:09:59 Problem Notes None recorded. Procedures Surgical History Date Name Laterality Status Provider Name and Address Organization Details Recorded Time 11/07/20 21 Lumbar BISHOP: Interlaminar completed N[place]via [place] - [facility] 11/07/2021 13:43:46 09/12/20 21 Lumbar RFA (2 Level Bilateral) completed Nolvia [place] - [facility] 09/12/2021 13:50:24 08/24/20 21 Diagnostic Lumbar MBB (2 Level Bilateral) completed Nolvia [place] - [facility] 08/24/2021 08:39:40 08/02/20 21 Diagnostic Lumbar MBB (2 Level Bilateral) completed Nol[place] [facility] 08/02/2021 13:41:12 05/31/20 21 Lumbar BISHOP: Interlaminar completed Nolvia [place] [facility] 05/31/2021 14:33:01 11/10/20 20 Lumbar Transforaminal Epidural Steroid Injection (2 Levels Unilateral): completed Nolvia [place] - [facility] 11/10/2020 15:33:46 10/13/20 20 Lumbar BISHOP: Interlaminar completed Beatrice [place] - [facility] 10/13/2020 14:06:31 Unlisted px hands/fingers completed Barbara Muñoz [place] - [facility] 09/28/2020 09:39:57 Appendectomy completed Barbara Muñoz [place] - [facility] 09/28/2020 09:40:03 ligation of fallopian tube completed Barbara Muñoz [place] - [facility] 09/28/2020 09:40:12 release of trigger finger completed Barbara Muñoz [place] - [facility] 09/28/2020 09:40:45 Knee arthroscopy/surger y completed Barbara Muñoz [place] - [facility] 09/28/2020 09:41:07 hammer toe operation completed Barbara Muñoz [place] - [facility] 09/28/2020 09:41:41 excision of bunion completed Barbara Anika morataya [facility] 09/28/2020 09:42:06 total knee replacement completed Barbara Muñoz [facility] 09/28/2020 09:42:30 Imaging Results None recorded. Procedure Notes None recorded. Medical Equipment None Reported. Allergies Allergen ID Allergen Name Allergen Category Reaction Reaction Severity Criticality Documentation Date Start Date Code Code System Note Provider Name and Address Organization Details Recorded Time [id number] amitripty line medicatio n Not available Not available Not available 09/28/2020 704 RxNorm Barbara myers [facility] 0 09:32:01 843777 Tylenol with Codeine medicatio n Not available Not available Not available 09/28/2020 84623 6 RxNorm Barbara myers [facility] 0 09:32:30 888011 latex environme nt,medica tion Not available Not available Not available 09/28/2020 56552 91 RxNorm Barbara myers [facility] 0 09:32:38 892290 Pennsaid medicatio n Not available Not available Not available 09/28/2020 51588 1 RxNorm Barbara myers [facility] 0 09:32:45 Medications Name Sig Start Date Stop Date Status Note LastModified by Organization Details LastModified Time cyclobenzapr ine 10 mg tablet Take 1 tablet 3 times a day by oral route as needed. active Not Available Not Available No t Available amoxicillin 500 mg capsule 07/05 completed Not Available Not Available Not Available furosemide 40 mg tablet Take 1 tablet twice a day by oral route. active Not Available Not Available No t Available venlafaxine ER 37.5 mg capsule,exte nded release 24 hr TAKE ONE CAPSULE BY MOUTH EVERY DAY active Not Available Not Available No t Available oxybutynin chloride ER 10 mg tablet,exten ded release 24 hr active Not Available Not Available Not Available ofloxacin 0.3 % eye drops active Not Available Not Available Not Available metoprolol tartrate 100 mg tablet active Not Available Not Available No t Available fluconazole 150 mg tablet active Not Available Not Available Not Available sumatriptan 100 mg tablet Take 1 tablet every day by oral route as needed. active Not Available Not Available No t Available hydrocodone 5 mg-acetamino phen 325 mg tablet active Not Available Not Available Not Available meloxicam 15 mg tablet active Not Available Not Available No t Available phenazopyrid ine 200 mg tablet active Not Available Not Available Not Available prednisone 20 mg tablet active Not Available Not Available Not Available metronidazol e 250 mg tablet active Not Available Not Available Not Available acetazolamid e 250 mg tablet active Not Available Not Available Not Available levofloxacin 250 mg tablet active Not Available Not Available Not Available allopurinol 100 mg tablet TAKE ONE TABLET BY MOUTH EVERY DAY active Not Available Not Available No t Available ciprofloxaci n 500 mg tablet 07/05 completed Not Available Not Available Not Available sulfamethoxa zole 800 mg-trimethop rim 160 mg tablet active Not Available Not Available Not Available tramadol 50 mg tablet active Not Available Not Available No t Available ketorolac 0.5 % eye drops active Not Available Not Available Not Available cefadroxil 500 mg capsule active Not Available Not Available Not Available amoxicillin 875 mg tablet active Not Available Not Available Not Available prednisolone acetate 1 % eye drops,suspen shante active Not Available Not Available Not Available tamsulosin 0.4 mg capsule active Not Available Not Available Not Available dicyclomine 20 mg tablet active Not Available Not Available Not Available potassium citrate ER 10 mEq (1,080 mg) tablet,exten ded release TAKE ONE TABLET BY MOUTH THREE TIMES DAILY with meals active Not Available Not Available No t Available hydrocodone 7.5 mg-acetamino phen 325 mg tablet active Not Available Not Available Not Available cephalexin 500 mg capsule active Not Available Not Available Not Available olopatadine 0.1 % eye drops active Not Available Not Available Not Available polymyxin B sulfate 10,000 unit-trimeth oprim 1 mg/mL eye drops active Not Available Not Available Not Available losartan 25 mg tablet TAKE ONE TABLET BY MOUTH EVERY DAY active Not Available Not Available No t Available etodolac 400 mg tablet active Not Available Not Available No t Available montelukast 10 mg tablet active Not Available Not Available Not Available mometasone 0.1 % topical ointment active Not Available Not Available Not Available ondansetron 4 mg disintegrati ng tablet active Not Available Not Available No t Available cefdinir 300 mg capsule active Not Available Not Available N ot Available fluticasone propionate 50 mcg/actuatio n nasal spray,suspen shante active Not Available Not Available Not Available oxycodone 5 mg tablet active Not Available Not Available No t Available nitrofuranto in monohydrate/ macrocrystal s 100 mg capsule active Not Available Not Available Not Available ClearLax 17 gram/dose oral powder active Not Available Not Available Not Available Vitals Date Recorded Body height Body mass index (BMI) Body weight Provider Name and Address Organization Details Last Updated DateTime 10/17/2021 170.18 cm 34.5 kg/m2 96317.32 g Jacqueline Wilner [facility] 10/17/2021 13:47:26 Social History None recorded. Functional Status None recorded. Mental Status None recorded. Family History Nothing Reported. Medical History Condition Response Bipolar Disease N Coronary Artery Disease N Seizure Disorder N Gout N Atrial Fibrillation N Thyroid Disease N Hernia N Head Trauma/Injury N COPD N Depression N Anxiety Disorder N Acid Reflux (GERD) N Cancer N Skin Disorder N Stroke N High Cholesterol N Liver Disease N Rheumatoid Arthritis Y Headaches N Fibromyalgia Y Autoimmune Disease N Kidney Disease N Osteoarthritis Y Neurosurgery N DVT N Peptic Ulcer Disease N Anemia N Heart Attack ([place]) N Diabetes N Cardiomyopathy N Bleeding Disorder N CHF N AIDS/HIV N Inflammatory Bowel Disease Y Dementia N Asthma N Substance Abuse N Sleep Apnea Y Hepatitis N Heart Disease N Pulmonary Embolism N Chronic Low Back Pain Y Hypertension Y Osteoporosis N Gynecological HistoryNo gynecological history recorded. Obstetrics History GPAL:G 0 P 0 0 0 0 Past Encounters Encounter ID Performer Location Encounter Start Date Encounter Closed Date Diagnosis/Indication Diagnosis SNOMED-CT Code Diagnosis ICD10 Code Diagnosis Note [id number] MD Rui Dietzington [address] [place] [address] 09/28/2020 08:35:03 09/28/2020 10:16:28 Intervertebral disc disorder 66110208 M51.27 Lumbar radiculopathy 128 195092 M54.16 Spinal nehem[address] nosis of lumbar region 80270786 M48.062 [id number] MD Rui Diet[place]ton [address] [place] [address] 10/13/2020 13:04:15 10/13/2020 14:08:37 Lumbar radiculopathy 652865301 M54.16 [id number] MD Sara Dietz [address] [place] [address] 11/10/2020 14:54:45 11/10/2020 15:27:24 Lumbar radiculopathy 982305689 M54.16 [id number] MD Sara Dietz [address] [place] [address] 05/31/2021 13:03:16 05/31/2021 14:27:05 Lumbar radiculopathy 320254878 M54.16 [id number] MD Sara Griggs [address] [place] [address] 07/05/2021 09:37:08 07/05/2021 10:41:20 Spinal stenosis of lumbar region 53517340 M48.062 Lumbar radiculopathy 128 402354 M54.16 Lumbar spondylosis 14192 0009 M47.896 The recommende d procedure is discussed with the patient in detail. Questions related to the procedure are answered. [id number] MD Sara Dietz [address] [place] [address] 08/02/2021 13:09:57 08/02/2021 13:39:19 Lumbar spondylosis 428472092 M47.971 [id number] MD Sara Dietz [address] [place] [address] 08/24/2021 08:01:33 08/24/2021 08:29:49 Lumbar spondylosis 322475419 M47.416 [id number] MD Sara Dietz [address] [place] [address] 09/12/2021 13:01:13 09/12/2021 13:44:50 Lumbar spondylosis 035218041 M47.376 [id number] MD Sara Dietz [address] [place] [address] 10/17/2021 13:00:25 10/17/2021 14:03:28 Lumbar spondylosis 081670343 M47.896 Spinal [address]hem[address] nosis of lumbar region 10471837 M48.062 Lumbar radiculopathy 128 662810 M54.16 [id number] Benny Brooks MD [facility] [address] [place] [address] 11/07/2021 12:44:23 11/07/2021 13:41:33 Lumbar radiculopathy 396247865 M54.16 Health Concerns Section Related Observation LastModified by Organization Detai ls LastModified Time None Recorded Concern Status LastModified by Organization Details LastModified Time None Recorded Advance Directives Directive None Recorded Payers Insurance Date Sequence Insurance Name Policy Number Policy Diamond Covered Member ID Diamond Member ID Guarantor Name 11/04/2021 1 [facility] [id number] Joie Dion Tavares [id number] Joie Tavares Notes Date Note Type Note Provider Name and Address Organization Details Recorded Time 10/17/2021 text/html Follow-up (meds & injections)Reporte d bypatient.Improvem ent:Pain is getting worse. Pain Scores:Current pain- 7/10Low back painReported bypatient.Onset:1 years Location:radiating down the bilateral lower extremities to the buttocks; Patient having low back that radiates into both buttocks and hips. The right side is worse than the left. Context:started without cause Quality:constant; Patient states the right leg goes out without any pain. Severity:current pain level: 7/10; average pain level: 8/10; worst pain level: 10/10 Alleviating Factors:heat Aggravating Factors:sitting; ROM Timing:worse in the morning Associated Symptoms:weakness Prior Imaging:x-ray (lumbar); 07/19/2020 [facility] [place] [place] Previous Lumbar Surgery:none Previous Injections:lumbar medial branch nerve blocks: helped temporarily; lumbar RFA: helped significantly; 2016 Dr Aguilera at [facility] Previous physical therapy:Facility: ([facility]); response to therapy: no improvement in pain/symptoms Daily Activities:Living independently.; Able to bathe/groom without assistance.; Walking without assistance or significant difficulty; Working without restriction.;Unabl e to exercise on a regular basis secondary to pain.;Cannot participate in recreation on a regular basis secondary to pain. Medications History:NSAIDs: (mobic Ibuprofen tylenol); Muscle relaxants: (cyclobenaprine); Neuropathics: (gabapentin lyrica); Opioid pain medications: (tramadol) Prior Pain Management:yes:; 2016 Dr Aguilera 09/12/2021 RFA Bilateral L3-L5; 50% pain relief ongoing. patient states that she had imaging on her kidney last week for a kidney stones. SADAF LOAIZA NP [address] [place] [address], [phone], [facility]ly [facility] 10/17/2021 19:55:18 OBGyn Episode No OBEpisode recorded.
--- OUTSIDE RECORDS SUMMARY | 2025-05-24 10:34 | XMS_ITS | Encounter Summary ---
Author Organization [employer] Address [address] [place] [address] Care Team Providers Care Software Programmer Name Role Phone Unavailable Primary Care Provider Unavailabl e Encounter Details Date Type Department Care Team (Late st Contact Info) Description 03/22/2021 Transcribed Document [facility] [place] [facility] [address] [place] [address] ProviderLibrado MD [address] [place], [place] [address] Social History Tobacco Use Types Packs/Day Years Used Date Smoking Tobacco: Never Assessed Comments Unknown Sex and Gender Information Value Date Recorded Sex Assigned at Not on file Legal Sex Female 1:10 PM CDT Gender Identity Not on file Sexual Orientation Not on file documented as of this encounter Miscellaneous Notes * Cerner Conversion Note - Historical ProviderMD - 03/22/2021 11:38 AM CDT Stroke/Warfarin Instructions Entered On: 03/22/2021 11:38 EDT Performed On: 03/22/2021 11:38 EDT by Danna Avila RN Stroke/Warfarin Instructions Stroke/TIA Discharge Ins : N/A Warfarin Discharge Ins : N/A Danna Avila RN - 03/22/2021 11:38 EDT Electronically signed by Kristina Dobbs Conversion Business Operations Specialist Cerner at 03/21/2023 1:05 PM CDT documented in this encounter Plan of Treatment Not on file documented as of this encounter Visit Diagnoses Not on filedocumented in this encounter
--- OUTSIDE RECORDS SUMMARY | 2025-05-24 10:34 | XMS_ITS | Encounter Summary ---
Author Organization [employer] Address [address] [place] [address] Care Team Providers Care Manager Applied Name Role Phone Unavailable Primary Care Provider Unavailabl e Encounter Details Date Type Department Care Team (Late st Contact Info) Description 01/25/2021 Transcribed Document [facility] [place] [facility] [place] [address] [place] [address] ProviderLibrado MD [address], [place] [address] Social History Tobacco Use Types Packs/Day Years Used Date Smoking Tobacco: Never Assessed Comments Unknown Sex and Gender Information Value Date Recorded Sex Assigned at Not on file Legal Sex Female 1:10 PM CDT Gender Identity Not on file Sexual Orientation Not on file documented as of this encounter Miscellaneous Notes * Cerner Conversion Note - Historical ProviderMD - 01/25/2021 11:37 AM 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
--- OUTSIDE RECORDS SUMMARY | 2025-05-24 10:34 | XMS_ITS | Encounter Summary ---
Author Organization [employer] Address [address] [place] [address] Care Team Providers Care Utility Operator Name Role Phone Unavailable Primary Care Provider Unavailabl e Encounter Details Date Type Department Care Team (Late st Contact Info) Description 01/25/2021 Transcribed Document [facility] [place] [address] [place] [address] ProviderLibrado MD [address] [place] [address] Social History Tobacco Use Types Packs/Day Years Used Date Smoking Tobacco: Never Assessed Comments Unknown Sex and Gender Information Value Date Recorded Sex Assigned at Not on file Legal Sex Female 1:10 PM CDT Gender Identity Not on file Sexual Orientation Not on file documented as of this encounter Miscellaneous Notes * Cerner Conversion Note - Historical ProviderMD - 01/25/2021 11:29 AM VIDEO SPECIALIST PAT Adult Entered On: 01/25/2021 11:35 EST Performed On: 01/25/2021 11:29 EST by Deisy Collins RN Vital Measurements Temperature Source : Temporal artery scanning Temperature Mode : Fahrenheit Temperature, Fahrenheit : 97.0 Deg F Clinical Temperature, C : 36.1 Deg C Peripheral Pulse Rate : 65 bpm Respiratory Rate : 16 Breaths/Min Blood Pressure Location : Arm, left upper Blood Pressure Source : Non-Invasive BP Device Blood Pressure Position : Sitting Systolic Blood Pressure : 170 mmHg (HI) Diastolic Blood Pressure : 81 mmHg Oxygen Saturation : 97 % Oxygen Therapy Mode : Room air Deisy Collins RN - 01/25/2021 11:29 EST Height and Weight, Clinical Dosing Height Source : Measured Height Entry Format : [place] Height, Feet : 5 ft(Converted to: 152 cm, 60 Inch) Height, Inches : 7 Inch(Converted to: 0 ft 7 Inch, 17.78 cm) Clinical Height : 170.18 cm Weight Source : Standing scale Weight Entry Format : [place] Clinical Dosing Weight : 99.09 kg Weight, Pounds : 218 lb Body Surface Area (BSA) : 2.1 m2 Body Mass Index : 34.2 kg/m2 (HI) [place] Body Weight : 61 kg Deisy Collins RN - 01/25/2021 11:29 EST Health Histories Smoking Status : Former smoker, quit more than 30 days ago Smokeless Tobacco Status : Never Deisy Collins RN - 01/25/2021 11:29 EST Social History (As Of: 01/25/2021 11:35:46 EST) Tobacco: Former smoker, quit more than 30 [...] (Last Updated: 07/06/2018 10:28:20 EDT by Irma Holloway, MAGALYS) Regular, Caffeine intake amount: maybe 2 cups per week. (Last Updated: 01/25/2021 11:31:46 EST by Deisy Collins RN) Home/Environment: Lives with Spouse. (Last Updated: 07/06/2018 10:28:26 EDT by Irma Holloway, MAGALYS) Lives with Spouse. Home equipment: CPAP/BiPAP, Walker/Cane. Alcohol abuse in household: No. Substance abuse in household: No. Smoker in household: No. Injuries/Abuse/Neglect in household: No. 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 (Last Updated: 07/06/2018 10:28:40 EDT by Irma Holloway RN) Infectious Disease History Has the patient ever been tested for COVID-19? : Yes, Patient stated results Negative Date of COVID-19 test known? : No Does patient have symptoms of COVID-19? : No COVID19 Screening : No Experiencing Infectious Disease Symptoms : No symptoms Physical contact outside [place] in the last 30 days : No Infectious Disease History : Chicken pox/Shingles, Influenza, Measles, Mumps, Pertussis (Whooping cough) Tuberculosis Symptoms : None Deisy Collins RN - 01/25/2021 11:29 EST COVID19 PreProcedure Screening Is this an Emergent or Add on Procedure? : No Date PreProcedure COVID-19 test known? : No Has patient been isolated since the test : N/A - PreProcedure, in-person visit Exposed to COVID19 symptoms since test? : N/A - PreProcedure, in-person visit Deisy Collins RN - 01/25/2021 11:29 EST Anesthesia/Transfusion History Family History of Anesthesia Reaction : No prior transfusion(s) Transfusion History : Prior anesthesia reaction Type of Anesthesia Reaction : Excessive nausea/vomiting, Other: hard to wake up Family History of Anesthesia Reaction : None Deisy Collins RN - 01/25/2021 11:29 EST Advance Directive Patient has Advance Directive *Q : No, patient refuses Advance Directive information Deisy Collins RN - 01/25/2021 11:29 EST [place] Suicide Severity Rating Scale (C-SSRS) CSSRS Past Month Wish to be : No CSSRS Past Month Suicidal Thoughts : No CSSRS Lifetime Suicide Behavior : No Suicide Severity Rating Score : 0 Suicide Severity Rating : No Additional Care Required at this time Deisy Collins RN - 01/25/2021 11:29 EST Psychosocial History Do You Have a History of the Following? : Patient denies history Currently in Unsafe Situation : No Deisy Collins RN - 01/25/2021 11:29 EST General Info Want Family/Rep/Phys Notified of Admit : No Emergency Contact #1 : Sandip Tavares Emergency Contact #1 or [phone] Emergency Contact #1 Relationship : Spouse Emergency Contact #2 : . Emergency Contact #2 Phone Number : . Emergency Contact #2 Relationship : . Primary Language : Urdu Preferred Communication Mode : Verbal Communication Barrier : None Graphite Grinder Needed : No Deisy Collins RN - 01/25/2021 11:29 EST Jt Scale Jt Sensory Perception : Slightly limited Jt Moisture : Rarely moist Jt Activity : Walks occasionally Jt Mobility : Slightly limited Jt Nutrition : Adequate Jt Friction and Shear : Potential problem Jt Score : 18 Deisy Collins RN - 01/25/2021 11:29 EST Sleep Apnea Risk Assmt BiPAP/CPAP Ordered for Home Use : Yes Hx of Obstructive Sleep Apnea Diagnosis : Yes BiPAP/CPAP Used at Home : Yes Age over 50 Years Old : Yes Gender Male : No Deisy Collins RN - 01/25/2021 11:29 EST documented in this encounter Plan of Treatment Not on file documented as of this encounter Visit Diagnoses Not on filedocumented in this encounter
--- OUTSIDE RECORDS SUMMARY | 2025-05-24 10:34 | XMS_ITS | Encounter Summary ---
Author Organization [employer] Address [address] [place] [address] Care Team Providers Care Ssas Developer Name Role Phone Unavailable Primary Care Provider Unavailabl e Encounter Details Date Type Department Care Team (Late st Contact Info) Description 03/21/2021 Transcribed Document [facility] [place] [address] [place] [address] ProviderLibrado MD [address], [place] [id number] Social History Tobacco Use Types Packs/Day Years Used Date Smoking Tobacco: Never Assessed Comments Unknown Sex and Gender Information Value Date Recorded Sex Assigned at Not on file Legal Sex Female 1:10 PM CDT Gender Identity Not on file Sexual Orientation Not on file documented as of this encounter Miscellaneous Notes * Cerner Conversion Note - Historical ProviderMD - 03/21/2021 10:39 AM CDT Pain Assessment Entered On: 03/22/2021 0:42 EDT Performed On: 03/21/2021 22:05 EDT by Mayela Granados, Rn Intervention Information: oxyCODONE Performed by Mayela Granados, Rn on 03/21/2021 21:05:00 EDT oxyCODONE,10mg Oral,Pain (Severe 7-10) Pain Assessment Pain Scale Goal : 3 Pain Improved by Intervention : Yes Mayela Granados, Rn - 03/22/2021 0:42 EDT documented in this encounter Plan of Treatment Not on file documented as of this encounter Visit Diagnoses Not on filedocumented in this encounter
--- OUTSIDE RECORDS SUMMARY | 2025-05-24 10:35 | XMS_ITS | Encounter Summary ---
Author Organization [employer] Address [address] [place] [id number] Care Team Providers Care Shoe Folder Name Role Phone Unavailable Primary Care Provider Unavailabl e Encounter Details Date Type Department Care Team (Late st Contact Info) Description 03/21/2021 Transcribed Document [facility] [place] [address] [place] [address] ProviderLibrado MD [facility] [place], [place] [id number] Social History Tobacco Use Types Packs/Day Years Used Date Smoking Tobacco: Never Assessed Comments Unknown Sex and Gender Information Value Date Recorded Sex Assigned at Not on file Legal Sex Female 1:10 PM CDT Gender Identity Not on file Sexual Orientation Not on file documented as of this encounter Miscellaneous Notes * Cerner Conversion Note - Historical ProviderMD - 03/21/2021 4:38 AM CDT Admission History, Adult Entered On: 03/21/2021 10:46 EDT Performed On: 03/21/2021 10:20 EDT by Beatrice Torres RN Advance Directive Patient has Advance Directive *Q : No, patient refuses Advance Directive information Beatrice Torres RN - 03/21/2021 10:42 EDT Anesthesia/Transfusion History Family History of Anesthesia Reaction : No prior transfusion(s) Transfusion History : Prior anesthesia reaction Type of Anesthesia Reaction : Excessive nausea/vomiting, Other: hard to wake up Family History of Anesthesia Reaction : None Beatrice Torres RN - 03/21/2021 10:42 EDT Anticipated Discharge Needs Discharge To, Anticipated : Home Anticipated Discharge Needs at This Time : Physical Therapy Beatrice Torres RN - 03/21/2021 10:42 EDT Education Topics, Admission Orientation DCP GENERIC CODE Advance Directives : Verbalizes understanding Allergy Band Applied : Verbalizes understanding Assessment/Vital Signs : Verbalizes understanding Bed Control : Verbalizes understanding Call Light : Verbalizes understanding Confidentiality : Verbalizes understanding Diet/Room Service : Verbalizes understanding Fall Prevention : Verbalizes understanding Hand Hygiene : Verbalizes understanding Healthcare Provider Visit : Verbalizes understanding ID Band Applied : Verbalizes understanding Isolation Precautions : Verbalizes understanding Orientation to Room/Bathroom : Verbalizes understanding Patient Bill of Rights : Verbalizes understanding Patient Rights/Responsibilities : Verbalizes understanding Patient Safety : Verbalizes understanding Personal Privacy Code : Verbalizes understanding Rapid Response Initiated by Patient/Family : Verbalizes understanding Rounding : Verbalizes understanding Siderails use/risks : Verbalizes understanding Skin Precautions : Verbalizes understanding Smoking Policy : Verbalizes understanding Telemetry Monitoring : Verbalizes understanding Television/Phone : Verbalizes understanding Visiting Policy : Verbalizes understanding Beatrice Torres RN - 03/21/2021 10:42 EDT Functional Assessment Living Situation : Home Current Home Treatments : None Beatrice Torres RN - 03/21/2021 10:42 EDT General Info Arrived From : Home Mode of Arrival on Unit : Ambulatory Patient Arrival Date/Time : 03/21/2021 10:20 EDT Legal Guardian : Spouse Want Family/Rep/Phys Notified of Admit : No Emergency Contact #1 : Sandip Tavares Emergency Contact #1 or [phone] Emergency Contact #1 Relationship : Spouse Emergency Contact #2 : . Emergency Contact #2 Phone Number : . Emergency Contact #2 Relationship : . Information Obtained From : Patient Primary Language : Turkmen Preferred Communication Mode : Verbal Communication Barrier : None Systems Software Specialist Needed : No Currently Lactating : No Status : Menopause Beatrice Torres RN - 03/21/2021 10:42 EDT Fall Risk Scales ABCs Fall Injury Risk Identification : Bones, Surgery ABC Fall Injury Risk : Moderate to high injury risk AMATO Hx Falls Immediate/Within 3 Months : No [place] Secondary Diagnosis : Yes AMATO Use of Ambulatory Aid : Crutches/Cane/Walker AMATO IV Therapy or IV Access : Yes [place] Gait/Transferring : Impaired [place] Mental Status : Oriented to own ability [place] Fall Risk Score : 70 AMATO Fall Scale Risk Level : 46 or > High Risk [place] Fall Interventions : Adequate lighting, Assistive devices within reach, Bed in low position, Call device within reach, Fall prevention handout/education per facility policy, Frequent orientation to call device, Frequent orientation to surroundings, Hourly comfort/safety rounds, Non-slip footwear, Personal items within reach, Reinforced to call for assistance before getting out of bed, Room free of clutter/spills, Upper side-rails up, Wheels locked, Wires/Cords secured Barriers to Learning : None evident Learning Style Preferences Family : Printed materials, Verbal explanation Learning Style Preferences Patient : Printed materials, Verbal explanation Beatrice Torres RN - 03/21/2021 10:42 EDT Health Histories Smoking Status : Former smoker, quit more than 30 days ago Smokeless Tobacco Status : Never Beatrice Torres RN - 03/21/2021 10:42 EDT Social History (As Of: 03/21/2021 10:46:57 EDT) Tobacco: Former smoker, quit more than [...] (Last Updated: 01/25/2021 11:31:18 EST by Deisy Collins, MAGALYS) Substance Abuse: Drug Use Hx: No. Use [...] 07/06/2018 10:28:40 EDT by Irma Holloway, RN) Height and Weight, Clinical Dosing Height Source : Measured Height Entry Format : [place] Height, Feet : 5 ft(Converted to: 152 cm, 60 Inch) Height, Inches : 7 Inch(Converted to: 0 ft 7 Inch, 17.78 cm) Clinical Height : 170.18 cm Weight Source : Standing scale Weight Entry Format : [place] Clinical Dosing Weight : 93.18 kg Weight, Pounds : 205 lb Body Surface Area (BSA) : 2.05 m2 Body Mass Index : 32.2 kg/m2 (HI) [place] Body Weight : 61 kg Beatrice Torres RN - 03/21/2021 10:42 EDT Infectious Disease History Has the patient ever [...] Illness : No Tuberculosis Symptoms : None Beatrice Torres RN - 03/21/2021 10:42 EDT Tetanus Immunization Status Previous Tetanus Immunizations : No qualifying data available. Tetanus Immunization : Greater than 10 years Beatrice Torres RN - 03/21/2021 10:42 EDT Influenza Vaccine Asmt, Adult Previous Vaccines from Immunization Schedule : No qualifying data available. Influenza Immunization, Current Season : Outside of influenza season Beatrice Torres RN - 03/21/2021 10:42 EDT Pneumococcal Vaccine Previous Vaccines from Immunization Schedule : No qualifying data available. Pneumonia Immunization Received : No Pneumococcal Risk Assessment < Age 65 : None Beatrice Torres RN - 03/21/2021 10:42 EDT Order Details Patient Needs Meds Crushed/Liquid : No Beatrice Torres RN - 03/21/2021 10:42 EDT Nutrition History Eating Poorly Due to Decreased Appetite : No Unplanned Weight Loss in Past 3-6 Months : No Malnutrition Screening Tool Total(mal) : 0 Malnutrition Screening Tool Risk Level : Patient not at risk Beatrice Torres RN - 03/21/2021 10:42 EDT [place] Suicide Severity Rating Scale (C-SSRS) CSSRS Past Month Wish to be : No CSSRS Past Month Suicidal Thoughts : No CSSRS Lifetime Suicide Behavior : No Suicide Severity Rating Score : 0 Suicide Severity Rating : No Additional Care Required at this time Beatrice Torres RN - 03/21/2021 10:42 EDT Psychosocial History Do You Have a History of the Following? : Patient denies history Currently in Unsafe Situation : No Do You Have a Support System? : Yes Beatrice Torres RN - 03/21/2021 10:42 EDT Sleep Apnea Risk Assmt BiPAP/CPAP Ordered for Home Use : Yes Hx of Obstructive Sleep Apnea Diagnosis : Yes BiPAP/CPAP Used at Home : Yes Age over 50 Years Old : Yes Gender Male : No Beatrice Torres RN - 03/21/2021 10:42 EDT Valuables and Belongings Valuables and Belongings : Clothing, Personal items Clothing : Common streetwear Clothing Disposition : With patient Personal Items : Cell phone, Purse Personal Items Disposition : With patient Beatrice Torres RN - 03/21/2021 10:42 EDT documented in this encounter Plan of Treatment Not on file documented as of this encounter Visit Diagnoses Not on filedocumented in this encounter
--- OUTSIDE RECORDS SUMMARY | 2025-05-24 10:35 | XMS_ITS | Encounter Summary ---
Author Organization [employer] Address [address] [place] [address] Care Team Providers Care Tour Conductor Name Role Phone Unavailable Primary Care Provider Unavailabl e Encounter Details Date Type Department Care Team (Late st Contact Info) Description 03/22/2021 Transcribed Document [facility] Family Medicine [address] [place] [address] ProviderLibrado MD [address] [place] [address] Social History Tobacco Use Types Packs/Day Years Used Date Smoking Tobacco: Never Assessed Comments Unknown Sex and Gender Information Value Date Recorded Sex Assigned at Not on file Legal Sex Female 1:10 PM CDT Gender Identity Not on file Sexual Orientation Not on file documented as of this encounter Miscellaneous Notes * Cerner Conversion Note - Librado ProviderMD - 03/22/2021 12:19 PM CDT [address] [address] GARYSUSAN GARRISONForrest HALL :1960 Visit Time:03/21/2021 Your Visit Summary Your Care Team Admitting Physician - DARY GAMEZ JR, JR, MD-ORT Attending Physician - DARY GAMEZ JR, JR, MD-ORT Primary Care Physician - EBONY IZAGUIRRE (REF), DINORA Referring Physician - KALEB, NOT LISTED Your Diagnosis HTN (hypertension) IBS (irritable bowel syndrome) Impaired vision Migraine Obesity (BMI 30.0-34.9) YOANA on CPAP RA (rheumatoid arthritis) Right hip pain Status post total hip replacement, right Unilateral primary osteoarthritis, right hip, Unilateral primary osteoarthritis, right hip, Unilateral primary osteoarthritis, right hip These Are Your Goals Able to ambulate safely - Not met What to do next Instructions From Your Care Team Community Services: [facility] Physical Therapy Home Health Services: [facility] Medical Equipment for Home Use: Patient has a front rolling walker and bedside commode at home. Transportation: to transport Discharge Follow Up Instructions: Follow-up with Dr. Calderon as scheduled, Order Comment: Follow-up with PCP as scheduled or PRN Activity: As per Dr. Calderon recommendations, Discharge Activity: Other (use Special Instructions) Diet: Discharge Diet: Resume usual diet as tolerated Follow-Up Appointments Follow Up with DARY GAMEZ JR, JR, MD-ORT When 04/03/2021 09:15 AM EDT Where: [address] [facility] [address] [place] [address]- Medications What How Much When Instructions Next Dose aspirin (aspirin 81 mg oral delayed release tablet) 1 Tablet(s) Oral Two Times A Day Duration: 45 Day(s) tonight cefadroxil (cefadroxil 500 mg oral capsule) 1 Capsule(s) Oral Every 12 hours Duration: 6 Day(s) tonight docusate (docusate sodium 100 mg oral tablet) 1 Tablet(s) Oral Two Times A Day as needed for for constipation Pickup at [facility] as needed oxyCODONE (oxyCODONE 5 mg oral tablet) See instructions Take 1-2 tab every 6 hours as needed for severe pain as needed after 12:55 pm traMADol (traMADol 50 mg oral tablet) See instructions Take 1-2 tab every 6 hours as needed for moderate severe pain as needed acetaminophen (acetaminophen 500 mg oral capsule) 2 Capsule(s) Oral Three Times A Day Duration: 30 Day(s) 3 pm fluticasone nasal (fluticasone 50 mcg/ inh nasal spray) 50 Microgram(s) Nasal Two Times A Day as needed for Allergies as needed venlafaxine (venlafaxine 37.5 mg oral capsule, extended release) 1 Capsule(s) Oral Every Evening tonight allopurinol 100 Milligram(s) Oral Every Day tomorrow cholecalciferol (Vitamin D3) 5,000 International Units Oral Every Day tomorrow dicyclomine (dicyclomine 20 mg oral tablet) 1 Tablet(s) Oral Two Times A Day tonight furosemide 40 Milligram(s) Oral Every Day as needed for Edema as needed loratadine 10 Milligram(s) Oral Every Day tomorrow losartan (losartan 25 mg oral tablet) 1 Tablet(s) Oral Every Day tomorrow metoprolol (metoprolol tartrate) 150 Milligram(s) Oral Two Times A Day tonight montelukast (Singulair 10 mg oral tablet) 1 Tablet(s) Oral Every Day tomorrow SUMAtriptan 100 Milligram(s) Oral Every Day as needed for as needed for migraine headache as needed Pharmacy Information [facility]: [address] [phone] Take your medications faithfully. Do NOT skip medication. Do NOT stop taking medications without the direction of a physician. Carry a list of your medications with you at all times, and take this medication list with you to your first follow up visit. Report any side effects. Avoid herbal remedies unless discussed with your physician. As part of your treatment plan, your physician may have prescribed a limited course of a controlled substance. This medication may be given to help people with moderate or severe pain or for other medical conditions, but there are risks involved with treatment. Common side effects may include nausea, constipation, drowsiness, sweating, itching, dry mouth, and rash. More serious side effects may include cognitive and motor impairment, like problems with thinking, concentrating, alertness, and movement (e.g. slowed reflexes), and driving and operating heavy machinery can be dangerous. It is important for you to talk to your physician if you have these side effects or questions. These controlled substances can produce physical dependence and be habit-forming if taken for an extended period of time, which means that the body has gotten used to them and may experience withdrawal symptoms if they are abruptly stopped. Withdrawal symptoms can include runny nose, sweating, goose bumps, diarrhea, abdominal cramping, rapid heartbeat, difficulty sleeping, and nervousness. Please dispose of unused and medications per your retail pharmacy guidance. Allergies amitriptyline (O/E - paralysis, Aphasia, Hallucinations) Peanuts (Tingling) Latex (Itching, hives) Cats (Congestion) Dexpak Jr. Taperpak (Migraine, Insomnia) Dilaudid (Slow to wake up after anesthesia) Mold (Congestion) Pennsaid (Itching) chlorhexidine topical (Itching, Rash) tyllenol 3 (headache, headache) Education Materials What to expect after the Procedure: After the procedure, it is common to have: ??? Pain and swelling. ??? A small amount of blood or clear fluid coming from your incision for up to 7 days. ??? It is normal to have a moderate amount of bleeding from the site of the drain that was pulled on the morning after surgery. You can hold pressure on the area for 3-5 minutes and cover with a bandage as needed. Diet: ??? Resume usual diet ??? No alcoholic beverages while taking pain medication ??? Drink 8-10 glasses of water a day to prevent constipation from pain medication ??? Increase fiber to help prevent constipation. Straining can cause increased pressure and pain in your incision area ??? Increase protein to promote healing Driving: ??? Do not drive until your health care provider approves. Ask your health care provider when it is safe to drive if you have an immobilizer on your knee. ??? Do not drive or operate heavy machinery while taking prescription pain medicine. ??? Do not drive for 24 hours if you received a sedative. Activity: ??? Do not lift anything that is heavier than 10 lb (4.5 kg) until your health care provider approves. ??? No strenuous activity ??? Avoid high-impact activities, including running, jumping rope, and jumping jacks. ??? Avoid sitting for a long time without moving. Get up and move around at least every few hours. ??? Keep legs elevated while seated and place surgery leg on 2-3 pillows, this will decrease swelling ??? Continue doing blue foam and lion basin ???tub time?? 3 times a day for 30 minutes at a time. More often is better. ??? Continue using walker until cleared by physical therapy Bathing: ??? Do not take baths, swim, or use a hot tub for one month after surgery. ??? May shower on the third day after surgery by covering incision with Glad Brand Press and Seal saran wrap. After showering, dry off completely BEFORE removing saran wrap. ??? Use Press and Seal saran wrap to shower for one month after surgery ??? You must be seated to shower until you are no longer using the walker Other: ??? Use ice therapy for 20-30 minutes at a time and leave off for 20-30 minutes at a time. Always keep a towel or cloth between the ice pack and your skin ??? Continue to use Incentive Spirometer 10 times an hour while awake for one month to help prevent pneumonia ??? Leave Mepilex on until follow up appointment. ??? ASA 81mg twice a day for 30 days. Contact a health care provider if: ??? You have more redness, swelling, or pain around your incision. ??? You have more fluid or blood coming from your incision. ??? Your incision or drain site feels warm to the touch. ??? You have pus or a bad smell coming from your incision. ??? You have a fever. ??? Your incision breaks open after your health care provider removes your sutures, skin glue, or adhesive tape. ??? Your prosthesis feels loose. ??? You have knee pain that does not go away Get help right away if you have: ??? Pain or swelling in your calf or thigh ??? shortness of breath or difficulty breathing ??? chest pain DVT: Blood Clot Blood clots are a common risk after an orthopedic surgery Symptoms: ??? Swelling of your leg or arm, especially if one side is much worse. ??? Warmth and redness of your leg or arm, especially if one side is much worse. ??? Pain in your arm or leg. If the clot is in your leg, symptoms may be more noticeable or worse when you stand or walk. ??? A feeling of pins and needles, if the clot is in the arm. The symptoms of a DVT that has traveled to the lungs (pulmonary embolism, PE) usually start suddenly and include: ??? Shortness of breath while active or at rest. ??? Coughing or coughing up blood or blood-tinged mucus. ??? Chest pain that is often worse with deep breaths. ??? Rapid or irregular heartbeat. ??? Feeling light-headed or dizzy. ??? Fainting. ??? Feeling anxious. ??? Sweating. There may also be pain and swelling in a leg if that is where the blood clot started. How is this prevented? Exercise regularly. For at least 30 minutes every day, engage in: ? Activity that involves moving your arms and legs. ? Activity that encourages good blood flow through your body by increasing your heart rate. ??? Exercise your arms and legs every hour during long-distance travel (over 4 hours). ??? Drink plenty of water and avoid drinking alcohol while traveling. ??? Avoid sitting or lying in bed for long periods of time without moving your legs. ??? Maintain a weight that is appropriate for your height. Ask your health care provider what weight is healthy for you. ??? If you are a woman who is over 35 years of age, avoid unnecessary use of medicines that contain estrogen. These include control pills. ??? Do not smoke, especially if you take estrogen medicines. If you need help quitting, ask your health care provider. ??? Wear compression stockings (if told by your health care provider) to help prevent blood clots from forming. High Fiber/High Protein Diet High fiber foods: To prevent constipation ??? Grains Whole-grain breads. Multigrain cereal. Oats and oatmeal. Brown rice. Barley. Bulgur wheat. Millet. Bran muffins. Popcorn. [place] wafer crackers. ??? Vegetables Sweet potatoes. Spinach. Kale. Artichokes. Cabbage. Broccoli. Green peas. Carrots. Squash. ??? Fruits Berries. Pears. Apples. Oranges. Avocados. Prunes and raisins. Dried figs. ??? Meats and Other Protein Sources [place], kidney, romero, and soy beans. Split peas. Lentils. Nuts and seeds. ??? Dairy Fiber-fortified yogurt. ??? Beverages Fiber-fortified soy milk. Fiber-fortified orange juice. ??? Other Fiber bars. High-protein foods: To promote healing High-protein foods contain 4 grams (4 g) or more of protein per serving. They include: ??? Beef, ground sirloin (cooked) ??? 3 oz have 24 g of protein. ??? Cheese (hard) ??? 1 oz has 7 g of protein. ??? Chicken breast, boneless and skinless (cooked) ??? 3 oz have 13.4 g of protein. ??? Cottage cheese ??? 1/2 cup has 13.4 g of protein. ??? Egg ??? 1 egg has 6 g of protein. ??? Fish, filet (cooked) ??? 1 oz has 6???7 g of protein. ??? Garbanzo beans (canned or cooked) ??? 1/2 cup has 6???7 g of protein. ??? Kidney beans (canned or cooked) ??? 1/2 cup has 6???7 g of protein. ??? Hernandez (cooked) ??? 3 oz has 24 g of protein. ??? Milk ??? 1 cup (8 oz) has 8 g of protein. ??? Nuts (peanuts, pistachios, almonds) ??? 1 oz has 6 g of protein. ??? Peanut butter ??? 1 oz has 7???8 g of protein. ??? Pork tenderloin (cooked) ??? 3 oz has 18.4 g of protein. ??? Pumpkin seeds ??? 1 oz has 8.5 g of protein. ??? Soybeans (roasted) ??? 1 oz has 8 g of protein. ??? Soybeans (cooked) ??? 1/2 cup has 11 g of protein. ??? Soy milk ??? 1 cup (8 oz) has 5???10 g of protein. ??? Soy or vegetable humza ??? 1 humza has 11 g of protein. ??? Jackson seeds ??? 1 oz has 5.5 g of protein. ??? Tofu (firm) ??? 1/2 cup has 20 g of protein. ??? Tuna (canned in water) ??? 3 oz has 20 g of protein. ??? Yogurt ??? 6 oz has 8 g of protein. Fall Prevention ??? Use night lights. ??? Install grab bars by the toilet and in the tub and shower. Do not use towel bars as grab bars. ??? Use non-skid mats or decals on the floor of the tub or shower. ??? If you need to sit down while you are in the shower, use a plastic, non-slip stool. ??? Keep the floor dry. Immediately clean up any water that spills on the floor. ??? Remove soap buildup in the tub or shower on a regular basis. ??? Remove throw rugs and other tripping hazards from the floor. ??? Place frequently used items in [id number] places ??? Keep electrical cables out of the way. ??? Do not leave any items on the stairs. ??? Make sure that there are handrails on both sides of the stairs. Fix handrails that are broken or loose. Make sure that handrails are as long as the stairways. ??? Check any carpeting to make sure that it is firmly attached to the stairs. Fix any carpet that is loose or worn. ??? Avoid having throw rugs at the top or bottom of stairways, or secure the rugs with carpet tape to prevent them from moving. ??? Wear closed-toe shoes that fit well and support your feet. Wear shoes that have rubber soles or low heels. ??? Use mobility aids as needed, such as canes, walkers, scooters, and crutches. ??? Turn on lights if it is dark. Replace any light bulbs that burn out. ??? Set up furniture so that there are clear paths. Keep the furniture in the same spot. ??? Be aware of any and all pets. ??? Review your medicines with your healthcare provider. Some medicines can cause dizziness or changes in blood pressure, which increase your risk of falling. Hand Washing You should wash your hands whenever you think they are dirty. You should also wash your hands: ??? After: ? Working or playing outside. ? Touching an animal or its toys or leash. ? Handling livestock. ? Using the bathroom. ? Using household elevator erector or toxic chemicals. ? Touching or taking out the garbage. ? Touching anything dirty around your home. ? Handling soiled clothes or rags. ? Taking care of a sick child. This includes touching used tissues, toys, and clothes. ? Sneezing, coughing, or blowing your nose. ? Using public transportation. ? Shaking hands. ? Using a phone, including your mobile phone. ? Touching money. ??? Before and after: ? Preparing food. ? Feeding a baby or young child. ? Eating. ? Visiting or taking care of someone who is sick. ? Changing a diaper. ? Changing a bandage (dressing) or taking care of an injury or wound. ? Giving or taking medicine. If soap and [...] 4. Repeat the process for each step. ??? Always keep both feet within the width of the walker's legs or wheels. ??? When using your walker, you should not feel like you need to lean forward or to the side to keep your hands on the handgrips. ??? Make sure you are following any weight-bearing instructions that your health care provider has given you. ??? Be careful not to let the walker get too far ahead of you as you walk. ??? If your walker does not glide well over carpet, consider cutting an X into two tennis balls and placing the balls over the back legs of your walker. To Use a Walker to Step Up: [...] 5. Step down with your stronger leg. Knee Immobilizer Brace: ??? Adjust the brace as often as needed while wearing it. It should be firm but not tight. Signs that the brace is too tight include: ? Puffiness (swelling). ? Numbness. ? Color change in your foot or ankle. ? Increased pain. FAQ ??? Patient COVID-19 testing Why do I need [...] patients who test positive for COVID-19. If I???m a patient, should I wear a mask? [...] through the local health department and the [place] Department for Public Health. Those organizations are [...] need during a recommended self-quarantine period. The patient???s name is not revealed to anyone during the contact tracing interviews, even if a contact asks. Who would be considered a ???close contact?? ? According to the CDC, a close [...] a face covering and maintain social distancing ??? at least 6 feet from others at [...] and need to call 911, notify the data coder operator that you have, or think you [...] others. You should stay in a specific ???sick room?? if possible, and away from other people [...] (including before you enter a health care provider???s office). ??? If you are caring for [...] clean your hands with an alcohol-based hand web content editor that contains at least 60% alcohol. Clean your hands often. ??? Wash hands: Wash your hands often with soap and water for at least 20 seconds when visibly dirty. This is especially important after blowing your nose, coughing or sneezing, and going to the bathroom, and before eating or preparing food. ??? Hand web content editor: Use an alcohol-based hand web content editor with at least 60% alcohol, covering all [...] and water or put them in the biostatistics director. Clean all high-touch surfaces every day. Clean high-touch surfaces in your isolation area (???sick room?? and bathroom) every day; let a caregiver clean and disinfect high-touch surfaces in other areas of the home. ??? Clean and disinfect: Routinely clean high-touch surfaces in your ???sick room?? and bathroom. Let someone else clean and disinfect surfaces in common areas, but not your bedroom and bathroom. ? If a caregiver or other person needs to clean and disinfect a sick person???s bedroom or bathroom, they should do so [...] or body fluids on them. ??? Household elevator erector and disinfectants: Clean the area or item with soap and water or another detergent if it is dirty. Then, use a household disinfectant. ??? Be sure to follow the instructions on the label to ensure safe and effective use of the product. Many products recommend keeping the surface wet for several minutes to ensure germs are killed. Many also recommend precautions such as wearing gloves and making sure you have good ventilation during use of the product. ??? Most EPA-registered household disinfectants should be effective. A full list of disinfectants can be found here: https://www.epa.gov/pesticide-registration/rvop-k-eubtcxtjmhbdo-pap-moicnbo-is rs-cov-2 ondansetron (oral) (on ELAINA se rc) Bonnie Nicole Zuplenz What is the most important information I should know about ondansetron? You should not use ondansetron if you are also using apomorphine (Apokyn). What is ondansetron? Ondansetron blocks the actions of chemicals in the body that can trigger nausea and vomiting. Ondansetron is used to prevent nausea and vomiting that may be caused by surgery, cancer chemotherapy, or radiation treatment. Ondansetron may be used for purposes not listed in this medication guide. What should I discuss with my health care provider before taking ondansetron? You should not use ondansetron if: ?? you are also using apomorphine (Apokyn); or ?? you are allergic to ondansetron or similar medicines (dolasetron, granisetron, palonosetron). To make sure ondansetron is safe for you, tell your doctor if you have: ?? liver disease; ?? an electrolyte imbalance (such as low levels of potassium or magnesium in your blood); ?? congestive heart failure, slow heartbeats; ?? a personal or family history of long QT syndrome; or ?? a blockage in your digestive tract (stomach or intestines). Ondansetron is not expected to harm an unborn baby. Tell your doctor if you are . It is not known whether ondansetron passes into breast milk or if it could harm a nursing baby. Tell your doctor if you are breast-feeding a baby. Ondansetron is not approved for use by anyone younger than 4 years old. Ondansetron orally disintegrating tablets may contain phenylalanine. Tell your doctor if you have phenylketonuria (PKU). How should I take ondansetron? Follow all directions on your prescription label. Do not take this medicine in larger or smaller amounts or for longer than recommended. Ondansetron can be taken with or without food. The first dose of ondansetron is usually taken before the start of your surgery, chemotherapy, or radiation treatment. Follow your doctor's dosing instructions very carefully. Take the ondansetron regular tablet with a full glass of water. To take the orally disintegrating tablet (Zofran ODT): ?? Keep the tablet in its blister pack until you are ready to take it. Open the package and peel back the foil. Do not push a tablet through the foil or you may damage the tablet. ?? Use dry hands to remove the tablet and place it in your mouth. ?? Do not swallow the tablet whole. Allow it to dissolve in your mouth without chewing. ?? Swallow several times as the tablet dissolves. To use ondansetron oral soluble film (strip) (Zuplenz): ?? Keep the strip in the foil pouch until you are ready to use the medicine. ?? Using dry hands, remove the strip and place it on your tongue. It will begin to dissolve right away. ?? Do not swallow the strip whole. Allow it to dissolve in your mouth without chewing. ?? Swallow several times after the strip dissolves. If desired, you may drink liquid to help swallow the dissolved strip. ?? Wash your hands after using Zuplenz. Measure liquid medicine with the dosing syringe provided, or with a special dose-measuring spoon or medicine cup. If you do not have a dose-measuring device, ask your pharmacist for one. Store at room temperature away from moisture, heat, and light. Store liquid medicine in an upright position. What happens if I miss a dose? Take the missed dose as soon as you remember. Skip the missed dose if it is almost time for your next scheduled dose. Do not take extra medicine to make up the missed dose. What happens if I overdose? Seek emergency medical attention or call the Poison Help line at . Overdose symptoms may include sudden loss of vision, severe constipation, feeling light-headed, or fainting. What should I avoid while taking ondansetron? Ondansetron may impair your thinking or reactions. Be careful if you drive or do anything that requires you to be alert. What are the possible side effects of ondansetron? Get emergency medical help if you have signs of an allergic reaction: rash, hives; fever, chills, difficult breathing; swelling of your face, lips, tongue, or throat. Call your doctor at once if you have: ?? severe constipation, stomach pain, or bloating; ?? headache with chest pain and severe dizziness, fainting, fast or pounding heartbeats; ?? fast or pounding heartbeats; ?? jaundice (yellowing of the skin or eyes); ?? blurred vision or temporary vision loss (lasting from only a few minutes to several hours); ?? high levels of serotonin in the body--agitation, hallucinations, fever, fast heart rate, overactive reflexes, nausea, vomiting, diarrhea, loss of coordination, fainting. Common side effects may include: ?? diarrhea or constipation; ?? headache; ?? drowsiness; or ?? tired feeling. This is not a complete list of side effects and others may occur. Call your doctor for medical advice about side effects. You may report side effects to FDA at 7-866-SZG-7525. What other drugs will affect ondansetron? Ondansetron can cause a serious heart problem, especially if you use certain medicines at the same time, including antibiotics, antidepressants, heart rhythm medicine, antipsychotic medicines, and medicines to treat cancer, malaria, HIV or AIDS. Tell your doctor about all medicines you use, and those you start or stop using during your treatment with ondansetron. Taking ondansetron while you are using certain other medicines can cause high levels of serotonin to build up in your body, a condition called 'serotonin syndrome,' which can be fatal. Tell your doctor if you also use: ?? medicine to treat depression; ?? medicine to treat a psychiatric disorder; ?? a narcotic (opioid) medication; or ?? medicine to prevent nausea and vomiting. This list is not complete and many other drugs can interact with ondansetron. This includes prescription and klbc-mni-ubrvyow medicines, vitamins, and herbal products. Give a list of all your medicines to any healthcare provider who treats you. Where can I get more information? Your pharmacist can provide more information about ondansetron. Remember, keep this and all other medicines out of the reach of children, never share your medicines with others, and use this medication only for the indication prescribed. Every effort has been made to ensure that the information provided by [employer]') is accurate, up-to-date, and complete, but no guarantee is made to that effect. Drug information contained herein may be time sensitive. [employer] information has been compiled for use by healthcare practitioners and consumers in the [place] and therefore [employer] does not warrant that uses outside of the [place] are appropriate, unless specifically indicated otherwise. [employer] drug information does not endorse drugs, diagnose patients or recommend therapy. [employer] drug information is an informational resource designed to assist licensed healthcare practitioners in caring for their patients and/or to serve consumers viewing this service as a supplement to, and not a substitute for, the expertise, skill, knowledge and judgment of healthcare practitioners. The absence of a warning for a given drug or drug combination in no way should be construed to indicate that the drug or drug combination is safe, effective or appropriate for any given patient. [employer] does not assume any responsibility for any aspect of healthcare administered with the aid of information [employer] provides. The information contained herein is not intended to cover all possible uses, directions, precautions, warnings, drug interactions, allergic reactions, or adverse effects. If you have questions about the drugs you are taking, check with your doctor, nurse or pharmacist. Copyright 8595-5558 [employer]. Version: 13.01. Revision Date: 09/20/2016. cephalexin (sef a GUILHERME in) Keflex What is the most important information I should know about cephalexin? You should not use this medicine if you are allergic to cephalexin or to similar antibiotics, such as Ceftin, Cefzil, Omnicef, and others. Tell your doctor if you are allergic to any drugs, especially penicillins or other antibiotics. What is cephalexin? Cephalexin is a cephalosporin (SEF a low spor in) antibiotic that is used to treat bacterial infections of the lungs, ear, skin, bones, bladder, and kidneys. Cephalexin is used to treat infections in adults and children who are at least 1 year old. Cephalexin may also be used for purposes not listed in this medication guide. What should I discuss with my healthcare provider before taking cephalexin? You should not use this medicine if you are allergic to cephalexin or any other cephalosporin antibiotic (cefdinir, cefadroxil, cefoxitin, cefprozil, ceftriaxone, cefuroxime, Omnicef, and others). Tell your doctor if you have ever had: ?? an allergy to any drug (especially penicillin); ?? liver or kidney disease; or ?? intestinal problems, such as colitis. The liquid form of cephalexin may contain sugar. This may affect you if you have diabetes. Tell your doctor if you are or breast-feeding. How should I take cephalexin? Follow all directions on your prescription label and read all medication guides or instruction sheets. Use the medicine exactly as directed. Do not use cephalexin to treat any condition that has not been checked by your doctor. Measure liquid medicine carefully. Use the dosing syringe provided, or use a medicine dose-measuring device (not a kitchen spoon). Use this medicine for the full prescribed length of time, even if your symptoms quickly improve. Skipping doses can increase your risk of infection that is resistant to medication. Cephalexin will not treat a viral infection such as the flu or a common cold. Do not share cephalexin with another person, even if they have the same symptoms you have. This medicine can affect the results of certain medical tests. Tell any doctor who treats you that you are using cephalexin. Store the tablets and capsules at room temperature away from moisture, heat, and light. Store the liquid medicine in the refrigerator. Throw away any unused liquid after 14 days. What happens if I miss a dose? Take the medicine as soon as you can, but skip the missed dose if it is almost time for your next dose. Do not take two doses at one time. What happens if I overdose? Seek emergency medical attention or call the Poison Help line at . Overdose symptoms may include nausea, vomiting, stomach pain, diarrhea, and blood in your urine. What should I avoid while taking cephalexin? Antibiotic medicines can cause diarrhea, which may be a sign of a new infection. If you have diarrhea that is watery or bloody, call your doctor before using anti-diarrhea medicine. What are the possible side effects of cephalexin? Get emergency medical help if you have signs of an allergic reaction (hives, difficult breathing, swelling in your face or throat) or a severe skin reaction (fever, sore throat, burning eyes, skin pain, red or purple skin rash with blistering and peeling). Call your doctor at once if you have: ?? severe stomach pain, diarrhea that is watery or bloody (even if it occurs months after your last dose); ?? unusual tiredness, feeling light-headed or short of breath; ?? easy bruising, unusual bleeding, purple or red spots under your skin; ?? a seizure; ?? pale skin, cold hands and feet; ?? yellowed skin, dark colored urine; ?? fever, weakness; or ?? pain in your side or lower back, painful urination. Common side effects may include: ?? diarrhea; ?? nausea, vomiting; ?? indigestion, stomach pain; or ?? vaginal itching or discharge. This is not a complete list of side effects and others may occur. Call your doctor for medical advice about side effects. You may report side effects to FDA at 7-100-SQL-3845. What other drugs will affect cephalexin? Tell your doctor about all your other medicines, especially: ?? metformin; or ?? probenecid. This list is not complete. Other drugs may affect cephalexin, including prescription and cckw-nkm-afmuldt medicines, vitamins, and herbal products. Not all possible drug interactions are listed here. Where can I get more information? Your pharmacist can provide more information about cephalexin. Remember, keep this and all other medicines out of the reach of children, never share your medicines with others, and use this medication only for the indication prescribed. Every effort has been made to ensure that the information provided by [employer]') is accurate, up-to-date, and complete, but no guarantee is made to that effect. Drug information contained herein may be time sensitive. [employer] information has been compiled for use by healthcare practitioners and consumers in the [place] and therefore [employer] does not warrant that uses outside of the [place] are appropriate, unless specifically indicated otherwise. [employer] drug information does not endorse drugs, diagnose patients or recommend therapy. [employer] drug information is an informational resource designed to assist licensed healthcare practitioners in caring for their patients and/or to serve consumers viewing this service as a supplement to, and not a substitute for, the expertise, skill, knowledge and judgment of healthcare practitioners. The absence of a warning for a given drug or drug combination in no way should be construed to indicate that the drug or drug combination is safe, effective or appropriate for any given patient. [facility] does not assume any responsibility for any aspect of healthcare administered with the aid of information [facility] provides. The information contained herein is not intended to cover all possible uses, directions, precautions, warnings, drug interactions, allergic reactions, or adverse effects. If you have questions about the drugs you are taking, check with your doctor, nurse or pharmacist. Copyright 9198-2577 [email or web address]. Version: 10.03. Revision Date: 12/04/2020. acetaminophen (oral) (a SEET a MIN oh fen) Actamin, Anacin AF, Aurophen, Bromo [place], Children's Tylenol, Mapap, M-Pap, Pharbetol, Silapap Childrens, Tactinal, Tempra Quicklets, Tycolene, Tylenol, Vitapap What is the most important information I should know about acetaminophen? You should not use acetaminophen if you have severe liver disease. Use this medicine exactly as directed on the label, or as prescribed by your doctor. An overdose of acetaminophen can damage your liver or cause . Avoid also using other medicines that contain acetaminophen (sometimes abbreviated as APAP), or you could have a fatal overdose. Call your doctor at once if you have nausea, pain in your upper stomach, itching, loss of appetite, dark urine, mari-colored stools, or jaundice (yellowing of your skin or eyes). Stop taking this medicine and call your doctor right away if you have skin redness or a rash that spreads and causes blistering and peeling. What is acetaminophen? Acetaminophen is a pain reliever and a fever cork floor installer. There are many brands and forms of acetaminophen available. Not all brands are listed on this leaflet. Acetaminophen is used to treat pain or fever caused by many conditions such as headache, muscle aches, arthritis, backache, toothaches, sore throat, colds, and flu. Acetaminophen may also be used for purposes not listed in this medication guide. What should I discuss with my healthcare provider before taking acetaminophen? You should not take acetaminophen if you are allergic to it, or if you have severe liver disease. Do not take acetaminophen without a doctor's advice if you have ever had alcoholic liver disease (cirrhosis) or if you drink more than 3 alcoholic beverages per day. Ask a doctor before using this medicine if you are or . Do not give this medicine to a child younger than 12 years old without the advice of a doctor. Extra-strength acetaminophen is not for use in a child younger than 6 years old. How should I take acetaminophen? Use exactly as directed on the label, or as prescribed by your doctor. Do not take more than your recommended dose. An overdose of acetaminophen can damage your liver or cause . ?? Adults and teenagers who weigh at least 110 pounds (50 kilograms): Do not take more than 1000 milligrams (mg) at one time. Do not take more than 4000 mg in 24 hours. ?? Children younger than 12 years old: Do not take more than 5 doses of acetaminophen in 24 hours. Use only the number of milligrams per dose that is recommended for the child's weight and age. Use exactly as directed on the label. ?? Avoid also using other medicines that contain acetaminophen, or you could have a fatal overdose. If you are treating a child, use a pediatric form of acetaminophen. Use only the special dose-measuring dropper or oral syringe that comes with the specific pediatric form you are using. Carefully follow the dosing directions on the medicine label. Measure liquid medicine carefully. Use the dosing syringe provided, or use a medicine dose-measuring device (not a kitchen spoon). Acetaminophen made for infants is available in two different dose concentrations, and each concentration comes with its own medicine dropper or oral syringe. Using the wrong device may cause you to give your child an overdose of acetaminophen. Never mix and match dosing devices between infant formulations of acetaminophen. You may need to shake the liquid before each use. Follow the directions on the medicine label. The chewable tablet must be chewed thoroughly before you swallow it. The oral powder should be placed directly on the tongue and swallowed. Make sure your hands are dry when handling a disintegrating tablet. Place the tablet on your tongue and allow it to dissolve, without chewing. Do not swallow the tablet whole. Allow it to dissolve in your mouth without chewing. To use the effervescent granules, dissolve one packet of the granules in at least 4 ounces of water. Stir and drink this mixture right away. Add a little more water to the glass, swirl gently and drink right away. Stop taking acetaminophen and call your doctor if: ?? you still have a sore throat after 2 days of use; ?? you still have a fever after 3 days of use; ?? you still have pain after 7 days of use (or 5 days if treating a child); ?? you have a skin rash, ongoing headache, nausea, vomiting, redness or swelling; or ?? if your symptoms get worse, or if you have any new symptoms. This medicine can affect the results of certain lab tests for glucose (sugar) in the urine. Tell any doctor who treats you that you are using acetaminophen. Store at room temperature away from heat and moisture. What happens if I miss a dose? Since acetaminophen is used when needed, you may not be on a dosing schedule. Skip any missed dose if it's almost time for your next dose. Do not use two doses at one time. What happens if I overdose? Seek emergency medical attention or call the Poison Help line at . An overdose of acetaminophen can damage your liver or cause . Early signs of acetaminophen overdose include loss of appetite, nausea, vomiting, sweating, or weakness. Later symptoms may include upper stomach pain, dark urine, and yellowing of your skin or eyes. What should I avoid while taking acetaminophen? Ask a doctor or pharmacist before using any other medicine that may contain acetaminophen (sometimes abbreviated as APAP). Taking too much acetaminophen can lead to a fatal overdose. Avoid drinking alcohol. It may increase your risk of liver damage. What are the possible side effects of acetaminophen? Get emergency medical help if you have signs of an allergic reaction: hives; difficulty breathing; swelling of your face, lips, tongue, or throat. In rare cases, acetaminophen may cause a severe skin reaction that can be fatal. This could occur even if you have taken acetaminophen in the past and had no reaction. Stop taking this medicine and call your doctor right away if you have skin redness or a rash that spreads and causes blistering and peeling. If you have this type of reaction, you should never again take any medicine that contains acetaminophen. Stop taking acetaminophen and call your doctor at once if you have signs of liver problems: loss of appetite, stomach pain (upper right side), tiredness, itching, dark urine, mari-colored stools, jaundice (yellowing of the skin or eyes). Less serious side effects may be more likely, and you may have none at all. This is not a complete list of side effects and others may occur. Call your doctor for medical advice about side effects. You may report side effects to FDA at 6-396-UBO-2664. What other drugs will affect acetaminophen? Other drugs may affect acetaminophen, including prescription and ewrx-gki-vofbcce medicines, vitamins, and herbal products. Tell your doctor about all your current medicines and any medicine you start or stop using. Where can I get more information? Your pharmacist can provide more information about acetaminophen. Remember, keep this and all other medicines out of the reach of children, never share your medicines with others, and use this medication only for the indication prescribed. Every effort has been made to ensure that the information provided by [employer]') is accurate, up-to-date, and complete, but no guarantee is made to that effect. Drug information contained herein may be time sensitive. [employer] information has been compiled for use by healthcare practitioners and consumers in the [place] and therefore [employer] does not warrant that uses outside of the [place] are appropriate, unless specifically indicated otherwise. [employer] drug information does not endorse drugs, diagnose patients or recommend therapy. [employer] drug information is an informational resource designed to assist licensed healthcare practitioners in caring for their patients and/or to serve consumers viewing this service as a supplement to, and not a substitute for, the expertise, skill, knowledge and judgment of healthcare practitioners. The absence of a warning for a given drug or drug combination in no way should be construed to indicate that the drug or drug combination is safe, effective or appropriate for any given patient. [employer] does not assume any responsibility for any aspect of healthcare administered with the aid of information [employer] provides. The information contained herein is not intended to cover all possible uses, directions, precautions, warnings, drug interactions, allergic reactions, or adverse effects. If you have questions about the drugs you are taking, check with your doctor, nurse or pharmacist. Copyright 2625-2524 [employer]. Version: 21.04. Revision Date: 07/07/2020. meloxicam (oral/injection) (emmanuel OKS i jeremiah) Anjeso, Mobic, Qmiiz ODT, Vivlodex What is the most important information I should know about meloxicam? Meloxicam can increase your risk of fatal heart attack or stroke. Do not use this medicine just before or after heart bypass surgery (coronary artery bypass graft, or CABG). Meloxicam may also cause stomach or intestinal bleeding, which can be fatal. What is meloxicam? Meloxicam is a nonsteroidal anti-inflammatory drug (NSAID) that is used to treat osteoarthritis or rheumatoid arthritis in adults. Meloxicam is also used to treat juvenile rheumatoid arthritis in children who are at least 2 years old. The Anjeso brand of meloxicam is used to treat moderate to severe pain in adults. Vivlodex is for use only in adults. Qmiiz is for adults and children weighing at least 132 pounds (60 kilograms). Meloxicam may also be used for purposes not listed in this medication guide. What should I discuss with my healthcare provider before taking meloxicam? Meloxicam can increase your risk of fatal heart attack or stroke, even if you don't have any risk factors. Do not use this medicine just before or after heart bypass surgery (coronary artery bypass graft, or CABG). Meloxicam may also cause stomach or intestinal bleeding, which can be fatal. These conditions can occur without warning while you are using meloxicam, especially in older adults. You should not use meloxicam if you are allergic to it, or if you have ever had an asthma attack or severe allergic reaction after taking aspirin or an NSAID. You should not take meloxicam disintegrating tablets (Qmiiz ODT) if you have phenylketonuria (PKU). This form of meloxicam contains phenylalanine. Tell your doctor if you have ever had: ?? heart disease, high blood pressure, high cholesterol, diabetes, or if you smoke; ?? a heart attack, stroke, or blood clot; ?? ulcers or bleeding in your stomach; ?? asthma; ?? kidney disease (or if you are on dialysis); ?? liver disease; or ?? fluid retention. If you are , you should not take meloxicam unless your doctor tells you to. Taking an NSAID during the last 20 weeks of can cause serious heart or kidney problems in the unborn baby and possible complications with your . Meloxicam may cause a delay in ovulation (the release of an egg from an ovary). You should not take meloxicam if you are undergoing fertility treatment, or are otherwise trying to get . It may not be safe to breastfeed while using this medicine. Ask your doctor about any risk. Meloxicam is not approved for use by anyone younger than 2 years old. How should I take meloxicam? Follow all directions on your prescription label and read all medication guides. Use the lowest dose that is effective in treating your condition. Meloxicam oral is taken by mouth. Meloxicam injection is given as an infusion into a vein. A healthcare provider will give you this injection. You may take meloxicam oral with or without food. Remove an orally disintegrating tablet from the package only when you are ready to take the medicine. Place the tablet in your mouth and allow it to dissolve, without chewing. Swallow several times as the tablet dissolves. Your dose needs may change if you switch to a different brand, strength, or form of this medicine. Avoid medication errors by using only the form and strength your doctor prescribes. Meloxicam doses are based on weight (especially in children and teenagers). Your dose needs may change if you gain or lose weight. If you use this medicine long-term, you may need frequent medical tests. Store meloxicam tablets or capsules at room temperature, away from moisture and heat. Keep the bottle tightly closed when not in use. What happens if I miss a dose? Take the medicine as soon as you can, but skip the missed dose if it is almost time for your next dose. Do not take two doses at one time. What happens if I overdose? Seek emergency medical attention or call the Poison Help line at . What should I avoid while taking meloxicam? Avoid alcohol. Heavy drinking can increase your risk of stomach bleeding. Avoid taking aspirin while you are taking meloxicam, unless your doctor tells you to. Ask a doctor or pharmacist before using other medicines for pain, fever, swelling, or cold/flu symptoms. They may contain ingredients similar to meloxicam (such as aspirin, ibuprofen, ketoprofen, or naproxen). What are the possible side effects of meloxicam? Get emergency medical help if you have signs of an allergic reaction (hives, difficult breathing, swelling in your face or throat) or a severe skin reaction (fever, sore throat, burning eyes, skin pain, red or purple skin rash with blistering and peeling). Get emergency medical help if you have signs of a heart attack or stroke: chest pain spreading to your jaw or shoulder, sudden numbness or weakness on one side of the body, slurred speech, leg swelling, feeling short of breath. Stop using meloxicam and call your doctor at once if you have: ?? the first sign of any skin rash, no matter how mild; ?? shortness of breath (even with mild exertion); ?? swelling or rapid weight gain; ?? signs of stomach bleeding--bloody or tarry stools, coughing up blood or vomit that looks like coffee grounds; ?? liver problems--nausea, upper stomach pain, itching, tired feeling, flu-like symptoms, loss of appetite, dark urine, mari-colored stools, jaundice (yellowing of the skin or eyes); ?? low red blood cells (anemia)--pale skin, unusual tiredness, feeling light-headed, cold hands and feet; or ?? kidney problems--little or no urination, swelling in your feet or ankles, feeling tired or short of breath. Common side effects may include: ?? stomach pain, nausea, vomiting, heartburn; ?? diarrhea, constipation, gas; ?? dizziness; or ?? cold symptoms, flu symptoms. This is not a complete list of side effects and others may occur. Call your doctor for medical advice about side effects. You may report side effects to FDA at 4-195-QRK-1372. What other drugs will affect meloxicam? Ask your doctor before using meloxicam if you take an antidepressant. Taking certain antidepressants with an NSAID may cause you to bruise or bleed easily. Tell your doctor about all your other medicines, especially: ?? cyclosporine; ?? lithium; ?? methotrexate; ?? pemetrexed; ?? sodium polystyrene sulfonate (Kayexalate); ?? a blood thinner (warfarin, Coumadin, Jantoven); ?? heart or blood pressure medication, including a diuretic or 'water pill'; or ?? steroid medicine (such as prednisone). This list is not complete. Other drugs may affect meloxicam, including prescription and rsee-ayb-fkvlykt medicines, vitamins, and herbal products. Not all possible drug interactions are listed here. Where can I get more information? Your pharmacist can provide more information about meloxicam. Remember, keep this and all other medicines out of the reach of children, never share your medicines with others, and use this medication only for the indication prescribed. Every effort has been made to ensure that the information provided by [employer]. ('[employer]') is accurate, up-to-date, and complete, but no guarantee is made to that effect. Drug information contained herein may be time sensitive. M[employer]I information has been compiled for use by healthcare practitioners and consumers in the [place] and therefore [employer] does not warrant that uses outside of the [place] are appropriate, unless specifically indicated otherwise. [employer]s drug information does not endorse drugs, diagnose patients or recommend therapy. [employer] drug information is an informational resource designed to assist licensed healthcare practitioners in caring for their patients and/or to serve consumers viewing this service as a supplement to, and not a substitute for, the expertise, skill, knowledge and judgment of healthcare practitioners. The absence of a warning for a given drug or drug combination in no way should be construed to indicate that the drug or drug combination is safe, effective or appropriate for any given patient. M[employer]I does not assume any responsibility for any aspect of healthcare administered with the aid of information [employer] provides. The information contained herein is not intended to cover all possible uses, directions, precautions, warnings, drug interactions, allergic reactions, or adverse effects. If you have questions about the drugs you are taking, check with your doctor, nurse or pharmacist. Copyright 9660-9335 [employer]. Version: 14.. Revision Date: 10/03/2020. docusate (oral/rectal) (DOK ue sate) Colace, Diocto, Doc-Q-Lace, Docu, Doculase, Docusil, Docusoft S, DocuSol, Dulcolax Stool Softener, Enemeez Mini, Venkatesh-Tin, Pedia-Lax Stool Softener, Moore Stool Softener, Promolaxin, Silace, Surfak Stool Softener, Jaja-Q-Lax What is the most important information I should know about docusate? You should not use docusate if you also use mineral oil, unless your doctor tells you to. What is docusate? Docusate is a stool softener that makes bowel movements softer and easier to pass. Docusate is used to relieve occasional constipation (irregularity). There are many brands and forms of docusate available. Not all brands are listed on this leaflet. Docusate may also be used for purposes not listed in this medication guide. What should I discuss with my healthcare provider before using docusate? You should not use docusate if you are allergic to it. Ask a doctor or pharmacist if this medicine is safe to use if you have: ?? stomach pain; ?? nausea; ?? vomiting; or ?? a sudden change in bowel habits that lasts over 2 weeks. Ask a doctor before using this medicine if you are or . Do not give this medicine to a child without medical advice. How should I use docusate? Use exactly as directed on the label, or as prescribed by your doctor. Drink plenty of liquids while you are using docusate. Measure liquid medicine carefully. Use the dosing syringe provided, or use a medicine dose-measuring device (not a kitchen spoon). Do not take the rectal enema by mouth. Rectal medicine is for use only in the rectum. Wash your hands before and after using the enema. documented in this encounter Plan of Treatment Not on file documented as of this encounter Visit Diagnoses Not on filedocumented in this encounter
--- OUTSIDE RECORDS SUMMARY | 2025-05-24 10:35 | XMS_ITS | Encounter Summary ---
Author Organization [employer] Address [address] [place] [address] Care Team Providers Care Game Trapper Name Role Phone Unavailable Primary Care Provider Unavailabl e Encounter Details Date Type Department Care Team (Late st Contact Info) Description 03/21/2021 Transcribed Document [facility] [place] [address] [place] [address] ProviderLibrado MD [address] [place], [place] [id number] Social History Tobacco Use Types Packs/Day Years Used Date Smoking Tobacco: Never Assessed Comments Unknown Sex and Gender Information Value Date Recorded Sex Assigned at Not on file Legal Sex Female 1:10 PM CDT Gender Identity Not on file Sexual Orientation Not on file documented as of this encounter Miscellaneous Notes * Cerner Conversion Note - Historical ProviderMD - 03/21/2021 10:39 AM CDT Evaluation, Physical Therapy Entered On: 03/21/2021 12:10 EDT Performed On: 03/21/2021 11:20 EDT by BARBARA NOYOLA, PT General Information, PT Visit Type, PT : Initial evaluation Patient Orders : Order Date Order Ordering MD 03/21/2021 10:39 PT Evaluation and Treatment Ordered By: DARY GAMEZ JR, JR, MD-ORT Active Diagnoses : No Qualifying Diagnoses Therapy Diagnosis, PT : aftercare following RTHA-anterior Admission Date : 03/21/2021 04:39 Assisted by, PT : Occupational Therapist Personal Devices : Personal Devices No Devices Recorded Assistive Devices : Assistive Devices No Devices Recorded BARBARA NOYOLA, PT - 03/21/2021 12:00 EDT General Status Patient Received Status : Supine in bed, Bed alarm activated Treatment Start Time : 03/21/2021 11:20 EDT Patient Left Status : Up in chair, Chair alarm activated, RN/PCT informed, Family/Visitors at bedside, Communication board completed, All needs met and within reach RN/PCT Informed Comment : Yes, RN approved pt for PT eval and pt agreeable Treatment End Time : 03/21/2021 11:39 EDT Treatment Time : 19 Minute(s) BARBARA NOYOLA, PT - 03/21/2021 12:00 EDT History and Environment Living Situation, Therapy : Home Patient Lives With : Spouse Persons Assisting Patient at Home : Spouse Professional Skilled Services : None Persons Providing Information : Patient, Spouse Home Equipment Therapy, PT : Walker Home Setup : One story Stairs : Yes Stair Location(s) : Outside Outside Stairs, Number of Steps : 2 Railing Outside : No BARBARA NOYOLA, PT - 03/21/2021 12:00 EDT Prior Level of Function PT GRID Prior LOF Ambulation, Household : Independent Prior LOF Ambulation, Community : Independent Prior LOF Bed Mobility : Independent Prior LOF Toileting : Independent Prior LOF Transfer : Independent BARBARA NOYOLA, PT - 03/21/2021 12:00 EDT Upper Extremity Upper Extremity Dominance : Left Right UE Active ROM : WFL Right UE Strength : WFL Left UE Active ROM : WFL Left UE Strength : WFL BARBARA NOYOLA, PT - 03/21/2021 12:00 EDT Lower Extremity RLE Active ROM : Impaired Right LE Strength : Impaired LLE Active ROM : WFL Left LE Strength : WFL Lower Extremity Comment : RLE is impaired secondary to surgery BARBARA NOYOLA, PT - 03/21/2021 12:00 EDT Functional Mobility Mobility Grid Bed Scooting : Supervision/set-up Supine to Sit : Rehab Minimal assistance Sit to Stand : Rehab Minimal assistance Bed to Chair : Rehab Minimal assistance Stand to Sit : Rehab Minimal assistance BARBARA NOYOLA, PT - 03/21/2021 12:00 EDT Gait Training/Assessment, PT Weight Bearing Status : As tolerated Gait Assistance Level : Assist, minimal Walking Distance : 20 feet with RWX, min assist x1, WBAT, verbal cues for correct gait sequence and for pursed lip breathing to control pain Ambulatory Devices : Gait belt, Walker, front wheel Gait Deviations : Yes Gait Training Comment : see above Stair(s) Ascend/Descend Training : No BARBARA NOYOLA, PT - 03/21/2021 12:00 EDT Neuromuscular Reeducation, PT Balance Comment : good sitting and standing BARBARA NOYOLA, PT - 03/21/2021 12:00 EDT Neurological/Sensory Overall Sensory Response : Intact Response to Pain : Intact BARBARA NOYOLA, PT - 03/21/2021 12:00 EDT Activity Tolerance, PT Activity Comment : BARBARA Fonseca, PT - 03/21/2021 12:00 EDT Cognition Assessment, PT Orientation : Oriented x 4 Attention Assessment : Present BARBARA NOYOLA, PT - 03/21/2021 12:00 EDT Edu Topics Physical Therapy Education Grid Bed Mobility Training : Verbalizes understanding, Returns demonstration Gait Training : Verbalizes understanding, Returns demonstration, Needs further teaching Transfer Training : Verbalizes understanding, Returns demonstration, Needs further teaching Use of Assistive Device : Verbalizes understanding, Returns demonstration, Needs further teaching BARBARA NOYOLA, PT - 03/21/2021 12:00 EDT Indication Assesessment, PT Physical Therapy Indicated : Yes Interdisciplinary Consultation(s) Needed : Yes Interdisciplinary Consult : Occupational Therapy PT Problem List : Impaired, bed mobility, Impaired, gait, Impaired, stair mobility, Impaired, strength, Impaired, transfers Potential Barriers To Therapy : Acuity of Illness Rehabilitation Potential : BARBARA Fonseca, PT - 03/21/2021 12:00 EDT Plan of Care, PT PT Tx Plan/Goals Established w Patient : Yes PT Frequency Rehab : Daily, twice (bid) Other PT Treatment Provided This Date : gait PT Duration Rehab : Three days PT Treatments Planned : Bed mobility training, Gait training, Safety education, Stair training, Therapeutic exercises, Transfer training Plan of Care Comment, PT : see above BARBARA NOYOLA, PT - 03/21/2021 12:00 EDT Technical Buyer Goals Other PT LTG Grid Goal #1 Goal #2 Goal #3 Other : Pt will be able to ascend and descend 2 steps with no rail and min assist x1 in order for her to safely gain entry into her home Pt will be able to ambulate 100 feet or greater with RWX, min assist x1 in order for her to safely navigate her home Pt will participate in therapeutic exercise training and be issued a written HEP to improve strength for safe transfers and mobility and for carryover into the home environment Date to Meet : 03/28/2021 EDT 03/28/2021 EDT 03/28/2021 EDT Goal Status : Initial goal Initial goal Initial goal BARBARA NOYOLA, PT - 03/21/2021 12:00 EDT BARBARA NOYOLA, PT - 03/21/2021 12:00 EDT BARBARA NOYOLA, PT - 03/21/2021 12:00 EDT Treatment Note Subjective Comment : agreeable Patient's Response to Treatment : good Additional Objective Information : see eval Assessment : Pt would benefit from continued skilled PT services in the acute care setting to improve her level of mobility and assist her to return to her PLOF Plan for Treatment : continue per eval POC BARBARA NOYOLA, PT - 03/21/2021 12:00 EDT Pain Assessment Pain Scaled Used : 0-10 Pain scale Pain Score Pre-Intervention : 6 Pain Score Post-Intervention. : 6 Pain Comment : RN in room and aware BARBARA NOYOLA, PT - 03/21/2021 12:00 EDT Image 1 - Images currently included in the form version of this document have not been included in the text rendition version of the form. Anticipated Discharge Needs, OT/PT Anticipated Discharge to : Home, with home health BARBARA NOYOLA, PT - 03/21/2021 12:[address] [facility] PT Charges Gait Training Each 15 Min : 1 PT Eval Low Complexity : 1 BARBARA NOYOLA, PT - 03/21/2021 12:00 EDT documented in this encounter Plan of Treatment Not on file documented as of this encounter Visit Diagnoses Not on filedocumented in this encounter
--- OUTSIDE RECORDS SUMMARY | 2025-05-24 10:35 | XMS_ITS | Encounter Summary ---
Author Organization [employer] Address [address] [place] [address] Care Team Providers Care Porter Marina Name Role Phone Unavailable Primary Care Provider Unavailabl e Encounter Details Date Type Department Care Team (Late st Contact Info) Description 03/21/2021 Transcribed Document [facility] [place] Family Medicine [address] [place] [address] ProviderLibrado MD [address] [place], [place] [address] Social History Tobacco Use Types Packs/Day Years [...] 03/21/2021 7:52 AM CDT [facility] PreOp Summary Primary Physician: DARY GAMEZ JR, JR, MD-ORT Finalized Date/Time: 03/21/21 09:40:08 Pt. Name: JOIE TAVARES/Sex: 1960 Female Med Rec #: [id number] Physician: DARY GAMEZ JR, JR, MD-ORT Financial #: [id number] Pt. Type: O Room/Bed: EAS/1 Admit/Disch: 03/21/21 04:39:00 - Institution: [facility] PreOp Case Times Entry 1 In Preop 03/21/21 05:20:00 Ready for Holding n/a Room Patient Ready for 03/21/21 06:35:00 Surgery Patient Out of Preop 03/21/21 07:26:00 Patient Out of n/a Holding Room Last Modified By: OMI SELBY 03/21/21 09:40:02 [facility] PreOp Case Times Audit 03/21/21 09:40:02 Trustee Of Estate: EDWARD Modifier: CATLETDD <+> 1 Patient Out of Preop Finalized By: OMI SELBY Document Signatures Signed By: OMI SELBY 03/21/21 09:40 Electronically signed by Dilia [facility] Conversion Clinical Trial Data Manager Cerner at 03/21/2023 12:55 PM CDT documented in this encounter Plan of Treatment Not on file documented as of this encounter Visit Diagnoses Not on filedocumented in this encounter
--- OUTSIDE RECORDS SUMMARY | 2025-05-24 10:35 | XMS_ITS | Encounter Summary ---
Author Organization [employer] Address [address] [place] [address] Care Team Providers Care Operations Architect Name Role Phone Unavailable Primary Care Provider Unavailabl e Encounter Details Date Type Department Care Team (Late st Contact Info) Description 03/22/2021 Transcribed Document [facility] [place] Family Medicine [address] [place] [address] ProviderLibrado MD [address], [place] [address] Social History Tobacco Use Types Packs/Day Years Used Date Smoking Tobacco: Never Assessed Comments Unknown Sex and Gender Information Value Date Recorded Sex Assigned at Not on file Legal Sex Female 1:10 PM CDT Gender Identity Not on file Sexual Orientation Not on file documented as of this encounter Miscellaneous Notes * Cerner Conversion Note - Historical ProviderMD - 03/22/2021 8:25 AM CDT UM Authorization Entered On: 03/22/2021 8:25 EDT Performed On: 03/22/2021 8:25 EDT by CONRAD COWAN RN-Utilization Review Primary Insurance Authorization Authorization and Policy Numbers : Insurance 1 Health Plan: [employer] Policy Number: [id number] Authorization Number: [id number] Insurance Primary Name : [facility] Policy Number: [id number] Authorization Status-Primary : Opo status approv Authorized Service Begin Date-Primary : 03/21/2021 EDT Observation Authorization Nbr-Primary : [id number] Authorization Comments-Primary : [facility] auth approved for outpt per Star note Historical Authorization Comments-Primary : No Authorization Comments Found CONRAD COWAN RN-Utilization Review - 03/22/2021 8:25 EDT documented in this encounter Plan of Treatment Not on file documented as of this encounter Visit Diagnoses Not on filedocumented in this encounter
--- OUTSIDE RECORDS SUMMARY | 2025-05-24 10:35 | XMS_ITS | Encounter Summary ---
Author Organization [employer] Address [address] [place] [address] Care Team Providers Care Technology Integration Specialist Name Role Phone Unavailable Primary Care Provider Unavailabl e Encounter Details Date Type Department Care Team (Late st Contact Info) Description 03/22/2021 Transcribed Document [facility] [place] Family Medicine [address] [place] [address] ProviderLibrado MD [address], [place] [address] Social History Tobacco Use Types Packs/Day Years Used Date Smoking Tobacco: Never Assessed Comments Unknown Sex and Gender Information Value Date Recorded Sex Assigned at Not on file Legal Sex Female 1:10 PM CDT Gender Identity Not on file Sexual Orientation Not on file documented as of this encounter Miscellaneous Notes * Cerner Conversion Note - Historical ProviderMD - 03/22/2021 11:04 AM CDT Meds to Bed Enrollment Entered On: 03/22/2021 11:04 EDT Performed On: 03/22/2021 11:04 EDT by Darek Elena, Pharmacist Meds to Bed Enrollment Patient Enrollment Decision: : Yes/enroll in meds to bed program Darek Elena, Pharmacist - 03/22/2021 11:04 EDT documented in this encounter Plan of Treatment Not on file documented as of this encounter Visit Diagnoses Not on filedocumented in this encounter
--- OUTSIDE RECORDS SUMMARY | 2025-05-24 10:35 | XMS_ITS | Encounter Summary ---
Author Organization [employer] Address [address] [place] [address] Care Team Providers Care Security Installer Name Role Phone Unavailable Primary Care Provider Unavailabl e Encounter Details Date Type Department Care Team (Late st Contact Info) Description 03/22/2021 Transcribed Document [facility] [place] Family Medicine [address] [place] [address] ProviderLibrado MD [facility] [place], [place] [address] Social History Tobacco Use Types Packs/Day Years Used Date Smoking Tobacco: Never Assessed Comments Unknown Sex and Gender Information Value Date Recorded Sex Assigned at Not on file Legal Sex Female 1:10 PM CDT Gender Identity Not on file Sexual Orientation Not on file documented as of this encounter Miscellaneous Notes * Cerner Conversion Note - Librado ProviderMD - 03/22/2021 11:27 AM CDT On Going Discharge Planning Entered On: 03/22/2021 11:28 EDT Performed On: 03/22/2021 11:27 EDT by LASHAE LUGO RN Care Management Progress Note Discharge Arrangements : Patient Post-Acute Information Patient Name: JOIE TAVARES Gender: Female : [birth year] Age: 60 Years Phillip Referral(s): Service: Organization: Business Address: Phone Number: [facility] [address], [place], [address] Discharge Options Discussed with Patient : Discharge transportation, DME Barriers to Discharge Identified : None identified Barriers to Discharge Unresolved : All resolved Designation of Choice Signed : Yes Patient Offered Choice/Affiliations Explained : Yes List/Info Provided Pt/Fam/Support Person : Home health Were Referrals Sent to Post Acute Providers : Yes Does the Patient have a Floor to SNF Benefit? : No Is the Patient Meeting Medical Necessity : Yes Physician Agreeable to Move Forward with D/C Plan? : Yes Did you Attend Multidisciplinary Rounds? : No LASHAE LUGO RN - 03/22/2021 11:27 EDT Narrative Progress Note Narrative Progress Note : 60 y/o female s/p RATH per Dr. Gallegos. Met patient and at bedside to discuss discharge needs. RRS: low 30 BOOST:3 STATUS: patient lives with her is iADLS. PLAN: Home with and choose [facility]. Referral sent via Norberto. patient also choose [facility] for her outpatient PT. DME: patient has a Frw and raised toilet seat. CM: no further CM needs identifed. DOC: designation of choice sined and placed in chart. TRANS: to transport patient home. LASHAE LUGO RN - 03/22/2021 11:27 EDT documented in this encounter Plan of Treatment Not on file documented as of this encounter Visit Diagnoses Not on filedocumented in this encounter
--- OUTSIDE RECORDS SUMMARY | 2025-05-24 10:35 | XMS_ITS | Encounter Summary ---
Author Organization [employer] Address [address] [place] [address] Care Team Providers Care Patient Biller Name Role Phone Unavailable Primary Care Provider Unavailabl e Encounter Details Date Type Department Care Team (Late st Contact Info) Description 03/08/2021 Transcribed Document [facility] [place] Family Medicine [address] [place] [address] ProviderLibrado MD [address], [place] [address] Social History Tobacco Use Types Packs/Day Years Used Date Smoking Tobacco: Never Assessed Comments Unknown Sex and Gender Information Value Date Recorded Sex Assigned at Not on file Legal Sex Female 1:10 PM CDT Gender Identity Not on file Sexual Orientation Not on file documented as of this encounter Miscellaneous Notes * Cerner Conversion Note - Librado ProviderMD - 03/08/2021 9:34 AM CDT Meds to Bed Enrollment Entered On: 03/08/2021 9:34 EDT Performed On: 03/08/2021 9:34 EDT by Deisy Collins RN Meds to Bed Enrollment Patient Enrollment Decision: : No/do not enroll in meds to bed program Deisy Collins RN - 03/08/2021 9:34 EDT documented in this encounter Plan of Treatment Not on file documented as of this encounter Visit Diagnoses Not on filedocumented in this encounter
--- OUTSIDE RECORDS SUMMARY | 2025-05-24 10:35 | XMS_ITS | Encounter Summary ---
Author Organization [employer] Address [address] [place] [address] Care Team Providers Care Police Pilot Name Role Phone Unavailable Primary Care Provider Unavailabl e Encounter Details Date Type Department Care Team (Late st Contact Info) Description 03/22/2021 Transcribed Document [facility] [place] Family Medicine [address] [place] [address] ProviderLibrado MD [address], [place] [address] Social History Tobacco Use Types Packs/Day Years Used Date Smoking Tobacco: Never Assessed Comments Unknown Sex and Gender Information Value Date Recorded Sex Assigned at Not on file Legal Sex Female 1:10 PM CDT Gender Identity Not on file Sexual Orientation Not on file documented as of this encounter Miscellaneous Notes * Cerner Conversion Note - Historical ProviderMD - 03/22/2021 5:00 AM CDT Chart Check - Review Order Profile Entered On: 03/22/2021 3:10 EDT Performed On: 03/22/2021 5:00 EDT by Mayela Granados, Rn Chart Check Powerplans Initiated/Discontinued as Appropriate : Yes All Active Orders Reviewed : Yes Mayela Granados Rn - 03/22/2021 3:10 EDT documented in this encounter Plan of Treatment Not on file documented as of this encounter Visit Diagnoses Not on filedocumented in this encounter
--- OUTSIDE RECORDS SUMMARY | 2025-05-24 10:35 | XMS_ITS | Encounter Summary ---
Author Organization [employer] Address [address] [place] [id number] Care Team Providers Care Cream Tester Name Role Phone Unavailable Primary Care Provider Unavailabl e Encounter Details Date Type Department Care Team (Late st Contact Info) Description 03/21/2021 Transcribed Document [facility] [place] Family Medicine [address] [place] [address] ProviderLibrado MD [address], [place] [id number] Social History Tobacco Use Types Packs/Day Years Used Date Smoking Tobacco: Never Assessed Comments Unknown Sex and Gender Information Value Date Recorded Sex Assigned at Not on file Legal Sex Female 1:10 PM CDT Gender Identity Not on file Sexual Orientation Not on file documented as of this encounter Miscellaneous Notes * Cerner Conversion Note - Librdao ProviderMD - 03/21/2021 10:23 PM CDT Patient: JOIE TAVARES Age: 60 years Sex: Female : 1960 Associated Diagnoses: Unilateral primary osteoarthritis, right hip; Status post total hip replacement, right; Right hip pain; HTN (hypertension); YOANA on CPAP; RA (rheumatoid arthritis); Migraine; Impaired vision; IBS (irritable bowel syndrome); Obesity (BMI 30.0-34.9) Author: MADDIE WILLIAM MD-INT Date of admission 03/21/2021 Date of consult 03/21/2021 PCP Mati Arroyo Orthopedic surgeon Chalo Gallegos MD Hospitalist medicine consult, internal medicine, Maddie William MD Reason for the consult, postoperative medical management Surgery See operative report Dictated by Admitting diagnosis 1- unilateral primary osteoarthritis Rt hip 2- S/P RTHA through anterior approach 3- Rt hip pain 4-HTN 5-YOANA on CPAP 6-RA 7-Migraine 8-impaired vision 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 Gallegos . Patient had surgery and is recovering well is awake alert cooperative responsive under no acute distress and is answering questions appropriately. Currently patient is on femoral nerve block in addition to oral pain medications as per Dr. Gallegos recommendations and the pain is well controlled. Patient is on DVT prophylaxis as per Dr. Gallegos Protocol. Patient did not have any trouble with urination and urine output is adequate. Patient is on scheduled bowel regimen. Patient started on oral nutrition initially with clear liquid diet which was advanced to high-fiber diet and is tolerating well oral p.o. intake. Patient denies any chest pain, shortness of breath, diaphoresis nausea or vomiting. PT/OT on board. Review of Systems Constitutional: No fever, No chills. Eye: No visual disturbances. Ear/Nose/Mouth/Throat: No nasal congestion, No sore throat. Respiratory: No shortness of breath, No cough. Cardiovascular: No chest pain, No tachycardia. Gastrointestinal: No nausea, No vomiting, No abdominal pain. Genitourinary: No change in urine stream. Hematology/Lymphatics: No bleeding tendency. Endocrine: No polyuria, No cold intolerance, No heat intolerance. Immunologic: Negative. Musculoskeletal: Negative. Integumentary: No rash, No pruritus. Neurologic: No confusion, No numbness, No tingling, No headache. Psychiatric: No anxiety, No depression. All other systems are negative Health Status Allergies: Allergies (10) Active Reaction amitriptyline Aphasia Latex Itching Peanuts Tingling Cats Congestion chlorhexidine topical Rash Dexpak Jr. Taperpak Migraine Dilaudid Slow to wake up after anesthesia Mold Congestion Pennsaid Itching tyllenol 3 headache Current medications: Home Medications (12) Active allopurinol 100 mg, Oral, Daily fluticasone 50 mcg/inh nasal spray See Instructions furosemide 40 mg, PRN, Oral, Daily loratadine [...] Vitamin D3 5,000 Int Units, Oral, Daily , Medications (31) Active Scheduled: (11) #NaCl 0.9% [...] Oral, Q4H phenol 1.4% throat spray 5 [place], Oral, Q2H promethazine 25 mg tab 12.5 [...] CPAP RA (rheumatoid arthritis) Seasonal allergies Sinusitis Histories Family History: Family history is significant for DM, HTN, heart disease Procedure history: tubal. Appendectomy; (56445). trigger finger. arthroscopy both knees. left total knee with Titanium. right CTR. cysto lithotripsy. several hammertoe/bunion surgeries. right wrist joint fusion. facet injects and rhizotomy. heart cath and lexiscan stress test 2010. retina; vein injections monthly. RTKA with Titanium. Colonoscopy ([id number]). Cystoscopy ([id number]). Bilateral Cataract Removal with IOL Implants. Lithotripsy ([id number]). Social History Patient is and has no children, she quit [employer] on 01/10/1993.Denies drinking alcohol. Physical Examination VS/Measurements Vital Signs/Vital Measures 03/21/2021 20:31 EDT Heart Rate, Apical 78 bpm 03/21/2021 20:30 EDT Systolic Blood Pressure 149 mmHg HI Diastolic Blood Pressure 78 mmHg Mean Arterial Pressure (MAP)-BMDI 97 Temperature Source Oral Temperature Mode Fahrenheit Temperature, Fahrenheit 97.7 Deg F Clinical Temperature, C 36.5 Deg C Heart Rate Monitored 104 bpm HI Respiratory Rate 16 Breaths/Min Oxygen Saturation 93 % LOW 03/21/2021 19:59 EDT Oxygen Saturation 100 % Oxygen Therapy Mode Nasal cannula Oxygen Flow Rate 2 Liter/Min 03/21/2021 17:00 EDT Systolic Blood Pressure 122 mmHg Diastolic Blood Pressure 70 mmHg Mean Arterial Pressure (MAP)-BMDI 83 Temperature Source Oral Temperature Mode Fahrenheit Temperature, Fahrenheit 97.2 Deg F Clinical Temperature, C 36.2 Deg C Heart Rate Monitored 70 bpm Respiratory Rate 16 Breaths/Min Oxygen Saturation 100 % Oxygen Therapy Mode Nasal cannula Oxygen Flow Rate 2 Liter/Min 03/21/2021 13:27 EDT Systolic Blood Pressure 126 mmHg Diastolic Blood Pressure 66 mmHg Mean Arterial Pressure (MAP)-BMDI 81 Temperature Source Oral Temperature Mode Fahrenheit Temperature, Fahrenheit 97.3 Deg F Clinical Temperature, C 36.3 Deg C Heart Rate Monitored 62 bpm Respiratory Rate 15 Breaths/Min Oxygen Saturation 99 % 03/21/2021 10:01 EDT Systolic Blood Pressure 124 mmHg Diastolic Blood Pressure 58 mmHg LOW Mean Arterial Pressure (MAP)-BMDI 84 Temperature Source Temporal artery scanning Temperature Mode Fahrenheit Temperature, Fahrenheit 98.0 Deg F Heart Rate Monitored 52 bpm LOW Respiratory Rate 16 Breaths/Min Oxygen Saturation 100 % 03/21/2021 10:00 EDT Oxygen Therapy Mode Nasal cannula Oxygen Flow Rate 2 Liter/Min 03/21/2021 9:46 EDT Systolic Blood Pressure 116 mmHg Systolic Blood Pressure 116 mmHg Diastolic Blood Pressure 57 mmHg LOW Diastolic Blood Pressure 57 mmHg LOW Mean Arterial Pressure (MAP)-BMDI 82 Heart Rate Monitored 54 bpm LOW Heart Rate Monitored 55 bpm LOW Respiratory Rate 16 Breaths/Min Oxygen Saturation 97 % Oxygen Therapy Mode Nasal cannula Oxygen Flow Rate 2 Liter/Min 03/21/2021 9:31 EDT Systolic Blood Pressure 131 mmHg Diastolic Blood Pressure 63 mmHg Mean Arterial Pressure (MAP)-BMDI 90 Heart Rate Monitored 57 bpm LOW Respiratory Rate 20 Breaths/Min Oxygen Saturation 98 % 03/21/2021 9:26 EDT Systolic Blood Pressure 133 mmHg Diastolic Blood Pressure 60 mmHg Mean Arterial Pressure (MAP)-BMDI 87 Heart Rate Monitored 64 bpm Respiratory Rate 16 Breaths/Min Oxygen Saturation 98 % Oxygen Therapy Mode Nasal cannula Oxygen Flow Rate 2 Liter/Min 03/21/2021 9:21 EDT Systolic Blood Pressure 153 mmHg HI Diastolic Blood Pressure 67 mmHg Mean Arterial Pressure (MAP)-BMDI 97 Heart Rate Monitored 75 bpm Respiratory Rate 20 Breaths/Min Oxygen Saturation 100 % Oxygen Therapy Mode Nasal cannula Oxygen Flow Rate 3 Liter/Min 03/21/2021 9:16 EDT Systolic Blood Pressure 158 mmHg HI Diastolic Blood Pressure 95 mmHg HI Mean Arterial Pressure (MAP)-BMDI 119 Temperature Source Temporal artery scanning Temperature Mode Fahrenheit Temperature, Fahrenheit 98.2 Deg F Clinical Temperature, C 36.8 Deg C Pulse Method Non-Invasive BP Device Heart Rate Monitored 68 bpm Respiratory Rate 16 Breaths/Min Oxygen Saturation 92 % LOW Oxygen Therapy Mode Nasal cannula Oxygen Flow Rate 4 Liter/Min 03/21/2021 9:00 EDT Heart Rate, Apical Not Done: Not Appropriate at this Time (Not Done) 03/21/2021 6:36 EDT Blood Pressure Location Arm, left upper Blood Pressure Source Non-Invasive BP Device Blood Pressure Position Side, Left Systolic Blood Pressure 155 mmHg HI Diastolic Blood Pressure 91 mmHg HI Temperature Source Oral Temperature Mode Fahrenheit Temperature, Fahrenheit 98.3 Deg F Clinical Temperature, C 36.8 Deg C Pulse Method Pulse Oximetry Pulse Source Radial, Right Pulse Rhythm Regular Peripheral Pulse Rate 59 bpm LOW Respiratory Rate 16 Breaths/Min Oxygen Saturation 97 % Oxygen Therapy Mode Room air General: Alert and oriented, No acute distress. Eye: Pupils are equal, round and reactive to light, Normal conjunctiva, Vision unchanged. HENT: Normocephalic, Tympanic membranes are clear, Normal hearing, Oral mucosa is moist, No pharyngeal erythema, No sinus tenderness. Neck: Supple, Non-tender, No carotid bruit, No jugular venous distention, No lymphadenopathy, No thyromegaly. Respiratory: Lungs are clear to auscultation, Respirations are non-labored, Breath sounds are equal, Symmetrical chest wall expansion, No chest wall tenderness. Cardiovascular: Normal rate, Regular rhythm, No murmur, No gallop, Good pulses equal in all extremities, Normal peripheral perfusion, No edema. Gastrointestinal: Soft, Non-tender, Non-distended, Normal bowel sounds, No organomegaly. Genitourinary: No costovertebral angle tenderness, No inguinal tenderness, No urethral discharge, No lesions. Lymphatics: No lymphadenopathy neck, axilla, groin. Musculoskeletal: Normal range of motion, Normal strength, No tenderness, No swelling, No deformity, Normal gait. Integumentary: Warm, Ione, Intact, No pallor, No rash, WOUND STABLE. Neurologic: Alert, Oriented, Normal sensory, Normal motor function, No focal deficits, Cranial Nerves II-XII are grossly intact, Normal deep tendon reflexes. Psychiatric: Cooperative, Appropriate mood & affect, Normal judgment, Non-suicidal. Review / Management Results review Impression and Plan Diagnosis Unilateral primary osteoarthritis, right hip - Admitting, Medical. Status post total hip replacement, right - Admitting, Medical. Right hip pain - Admitting, Medical. HTN (hypertension) - Admitting, Medical. YOANA on CPAP - Admitting, Medical. RA (rheumatoid arthritis) - Admitting, Medical. Migraine - Admitting, Medical. Impaired vision - Admitting, Medical. IBS (irritable bowel syndrome) - Admitting, Medical. Obesity (BMI 30.0-34.9) - Admitting, Medical. Course: Plan/Respirex @ BS and encourage patient to use. Sleep apnea precautions if needed. C-pap at night if needed. Hold all BP meds if BSP < 130 MMHg. If SBP < 90 mmHg, you may give 500 ml NS IVF over one hour. ACT: CONSULT PT/OT as per Dr. madyson card. For urinary retention use bladder scanner, you may anchor FC. If no or low UOP you may give 250 mL NS IV over one hour. AM Labs BMP & Hgb/HCT. If pt. spikes fever > 101* F, encourage pt to use Respirex first, then you may give Tylenol 650 mg PO/MN x 1. If no response in 2 hours, you may get blood cx. x2, chest x-ray, sputum CX, S, gram stain x3, UA, C&S. Patient may have chloroseptic spray or throat lozenges for soar throat. DVT prophylaxis. If at any time the HGB is less than 8 type and cross then transfuse 2 units of PRBCs. Premedicate with Tylenol 650 mg PO and Benadryl 25mg PO. Electrolytes Replacement Protocol. Pain control. Close monitoring fluid and electrolytes. Fall risk precautions. Sleep apnea precautions. Stress ulcer prophylaxis. TwT 64 mn patient seen and examined and reexamined, medical record reviewed, vitals reviewed, medications seen reviewed and reconciled, discussed with Pharm.D., discussed with the patient and with the staff, discussed with PT/OT, orders placed, consult note dictated . documented in this encounter Plan of Treatment Not on file documented as of this encounter Visit Diagnoses Not on filedocumented in this encounter
--- OUTSIDE RECORDS SUMMARY | 2025-05-24 10:35 | XMS_ITS | Encounter Summary ---
Author Organization [employer] Address [address] [place] [id number] Care Team Providers Care Logistics Planner Name Role Phone Unavailable Primary Care Provider Unavailabl e Encounter Details Date Type Department Care Team (Late st Contact Info) Description 03/22/2021 Transcribed Document [facility] [place] Family Medicine [address] [place] [address] ProviderLibrado MD [address] [place], [place] [id number] Social History Tobacco Use Types Packs/Day Years Used Date Smoking Tobacco: Never Assessed Comments Unknown Sex and Gender Information Value Date Recorded Sex Assigned at Not on file Legal Sex Female 1:10 PM CDT Gender Identity Not on file Sexual Orientation Not on file documented as of this encounter Miscellaneous Notes * Cerner Conversion Note - Historical ProviderMD - 03/22/2021 11:21 AM CDT Initial Discharge Planning Entered On: 03/22/2021 11:23 EDT Performed On: 03/22/2021 11:21 EDT by LASHAE LUGO RN Initial Assessment I Previously Documented Living Environment : No qualifying data available. Living Situation : Home Patient Lives With : Spouse Is the Patient a Caregiver at Home? : No Emergency Contact #1 : Sandip Tavares Emergency Contact #1 or [phone] Emergency Contact #1 Relationship : Spouse Emergency Contact #2 : . Emergency Contact #2 Phone Number : . Emergency Contact #2 Relationship : . Enter Doctors Name : James Gamino Does Patient have PCP Listed? : Yes Legal Guardian : No LASHAE LUGO RN - 03/22/2021 11:21 EDT Initial Assessment II Sensory and Motor Deficits : None Current Home Treatments and Equipment : Walker, Other: Raised toilet chair Services and Community Resources : Other: na Does the Patient have a Floor to SNF Benefit? : No LASHAE LUGO RN - 03/22/2021 11:21 EDT Discharge Needs I Anticipated Discharge Date : 03/22/2021 EDT Anticipated Discharge To, CM : Home with home health Current Home Treatment/Equipment : Current Home Treatment/Equipment No qualifying data available. Post Acute/Home Treatments : Walker Documentation Status Complete : Yes LASHAE LUGO RN - 03/22/2021 11:21 EDT Discharge Needs II Professional Skilled Services : Professional Skilled Services No qualifying data available. Services and Community Resources : Home Health Needs Assistance with Transportation : No Discharge Options Discussed with Patient : Discharge transportation, DME LASHAE LUGO RN - 03/22/2021 11:21 EDT Narrative Note Narrative Note : 60 y/o female s/p RATH per Dr. Gallegos. Met patient and at bedside to discuss discharge needs. RRS: low 30 BOOST:3 STATUS: patient lives with her is iADLS. PLAN: Home with HH and choose [facility]. Referral sent via Norberto. patient also choose [facility] for her outpatient PT. DME: patient has a Frw and raised toilet seat. CM: no further CM needs identifed. DOC: designation of choice sined and placed in chart. TRANS: to transport patient home. LASHAE LUGO RN - 03/22/2021 11:23 EDT documented in this encounter Plan of Treatment Not on file documented as of this encounter Visit Diagnoses Not on filedocumented in this encounter
--- OUTSIDE RECORDS SUMMARY | 2025-05-24 10:35 | XMS_ITS | Encounter Summary ---
Author Organization [employer] Address [address] [place] [id number] Care Team Providers Care Cradle Slide Maker Name Role Phone Unavailable Primary Care Provider Unavailabl e Encounter Details Date Type Department Care Team (Late st Contact Info) Description 03/21/2021 Transcribed Document [facility] [address] [place] [address] ProviderLibrado MD [address], [place] [id number] Social History Tobacco Use Types Packs/Day Years [...] ProviderMD - 03/21/2021 10:39 AM CDT Evaluation, Occupational Therapy Entered On: 03/21/2021 11:58 EDT Performed On: 03/21/2021 11:22 EDT by ARI LOU OTR/Heaven General Information, OT Visit Type, OT : Initial evaluation Patient Orders : Order Date Order Ordering MD 03/21/2021 10:39 OT Evaluation and Treatment Ordered By: DARY GAMEZ JR, JR, MD-ORT Active Diagnoses : No Qualifying Diagnoses Therapy Diagnosis, OT : aftercare following joint replacement surgery Onset of Problem, OT : 03/21/2021 EDT Admission Date : 03/21/2021 04:39 Personal Devices : Personal Devices No Devices Recorded Assistive Devices : Assistive Devices No Devices Recorded ARI LOU OTR/Heaven - 03/21/2021 11:45 EDT General Status Patient Received Status : Long sitting in bed Treatment Start Time : 03/21/2021 11:22 EDT Patient Left Status : Up in chair, Chair alarm activated, RN/PCT informed, Family/Visitors at bedside, Communication board completed, All needs met and within reach RN/PCT Informed Comment : RN ok'ed. Client agrees to tx. Treatment End Time : 03/21/2021 11:45 EDT Treatment Time : 23 Minute(s) Actual Treatment Time : 23 Minute(s) ARI LOU OTR/L - 03/21/2021 11:45 EDT History and Environment, OT Living Situation, Therapy : Home Patient Lives With : Spouse Persons Providing Information : Patient, Spouse Home Equipment, Therapy : Walker Home Setup : One story Stairs : Yes Stair Location(s) : Outside Outside Stairs, Number of Steps : 2 Railing Outside : No ARI LOU OTR/L - 03/21/2021 11:45 EDT Prior LOF Bathing, OT : Independent Prior LOF Bed Mobility : Independent Prior LOF Upper Body Dressing, OT : Independent Prior LOF Lower Body Dressing, OT : Independent Prior LOF Toileting : Independent Prior LOF Transfer : Independent Prior LOF Grooming, OT : Independent Prior LOF for IADLs, OT : Independent ARI LOU OTR/L - 03/21/2021 11:45 EDT Upper Extremity Upper Extremity Dominance : Right Right UE Active ROM : WFL Right UE Strength : WFL Left UE Active ROM : WFL Left UE Strength : WFL ARI LOU OTR/L - 03/21/2021 11:45 EDT Self Care/Home Management, OT Self Care/Home Management Comment, OT : Client max A with socks due to decreased flexibility & pain ARI LOU OTR/L - 03/21/2021 11:45 EDT Functional Mobility Mobility Grid Supine to Sit : Rehab Minimal assistance Sit to Stand : Supervision/set-up Bed to Chair : Supervision/set-up ARI LOU OTR/L - 03/21/2021 11:45 EDT Functional MobilityComment : Client walked from bed to chair with walker, gait belt, CGA, no loss of balance, pain seems under control. ARI LOU OTR/L - 03/21/2021 11:45 EDT Neurological/Sensory Overall Sensory Response : Intact ARI LOU OTR/L - 03/21/2021 11:45 EDT Cognition Assessment, OT Orientation : Oriented x 4 DASHAARI OTR/Heaven - 03/21/2021 11:45 EDT Indication Assessment, OT Occupational Therapy Indicated : Yes Problem List, OT : Impaired, activities daily living, Impaired, endurance tolerance, Impaired functional mobility, Impaired, transfers DASHA LEN CHAPMAN/Heaven - 03/21/2021 11:45 EDT Plan of Care, OT OT Tx Plan/Goals Established w Patient : Yes OT Frequency Rehab : Three days per week OT Duration Rehab : Seven Days OT Treatments Planned : Activities of daily living, Functional mobility training, Therapeutic activities, Therapeutic exercises ARI LOU OTR/Heaven - 03/21/2021 11:45 EDT Fpc Goals, OT Other LTG Grid Goal #1 Goal #2 Goal #3 Goal : Client will complete transfers for ADLs with SBA Client will complete LB ADLs with min A Client will verbalize understanding of fall prevention, car transfer Date to Meet : 03/28/2021 EDT 03/28/2021 EDT 03/28/2021 EDT Goal Status : Initial goal Initial goal Initial goal BEBAARI RIZVI OTR/Heaven - 03/21/2021 11:45 EDT ARI LOU OTR/Heaven - 03/21/2021 11:45 EDT ARI LOU OTR/Heaven - 03/21/2021 11:45 EDT Treatment Note Subjective Comment : present. Client cooperative, in good spirits. This wasn't as bad as I thought it would be Patient's Response to Treatment : Good performance of transfer, some increase in pain but client seems to tolerate well. Good safety, some verbal cues for use of the walker. Client instructed to use walker at all times. Additional Objective Information : see self-care and fx mobility notes Assessment : Client may benefit from OT services while inpatient to increase participation and safety, and will likely d/c home with , home health. ARI LOU OTR/Heaven Mahan 03/21/2021 11:45 EDT Pain Assessment Pain Scaled Used : 0-10 Pain scale Pain Score Pre-Intervention : 6 Pain Comment : Nsg in room and aware ARI LOU OTR/Heaven - 03/21/2021 11:45 EDT Image 1 - Images currently included in the form version of this document have not been included in the text rendition version of the form. [facility] OT Charges OT Selfcare/Hm Mgmt Ea 15 Min : 1 OT Eval Low Complexity : 1 ARI LOU OTR/L - 03/21/2021 11:45 EDT Electronically signed by Dilia [facility] Conversion Diagrammer Cerner at 03/21/2023 1:04 PM CDT documented in this encounter Plan of Treatment Not on file documented as of this encounter Visit Diagnoses Not on filedocumented in this encounter
--- OUTSIDE RECORDS SUMMARY | 2025-05-24 10:35 | XMS_ITS | Encounter Summary ---
Author Organization [employer] Address [address] [place] [id number] Care Team Providers Care Rubber Stamp Maker Name Role Phone Unavailable Primary Care Provider Unavailabl e Encounter Details Date Type Department Care Team (Late st Contact Info) Description 03/21/2021 Transcribed Document [facility] Family Medicine [address] [place] [address] ProviderLibrado MD [address], [place] [address] Social History Tobacco Use Types Packs/Day Years [...] 03/21/2021 7:52 AM CDT [facility] Main OR IntraOp Summary Primary Physician: DARY GAMEZ JR, JR, MD-ORT Finalized Date/Time: 03/21/21 10:21:07 Pt. Name: JOIE TAVARES/Sex: 1960 Female Med Rec #: [id number] Physician: DARY GAMEZ JR, JR, MD-ORT Financial #: [id number] Pt. Type: O Room/Bed: [facility]/ Admit/Disch: 03/21/21 04:39:00 - Institution: [facility] [place] [facility] IntraOp Case Attendance Entry 1 Entry 2 Entry 3 Case Attendee DARY GAMEZ JR, JR, WHITAKER, CARLY, Davis, Stephen J, RNFA MD-ORT MANAGER MERCHANDISING-ANS Role Performed Surgeon/Proceduralist, MANAGER MERCHANDISING/Nurse Seed Buyer NAILA First Time In 03/21/21 07:28:00 03/21/21 07:28:00 03/21/21 07:28:00 Time Out 03/21/21 09:15:00 03/21/21 09:15:00 03/21/21 09:15:00 Procedure Hip Total Anterior Hip Total Anterior Hip Total Anterior Approach(Right) Approach(Right) Approach(Right) Other Attendee Superficial Wound Closed By: Last Modified By: KAMERON CORREA RN LONGSWORTH, GARY, KAMERON ROWLEY RN 03/21/21 09:14:09 03/21/21 09:14:09 03/21/21 09:14:09 Entry 4 Entry 5 Entry 6 Case Attendee TIEN CLAY ST French, Lucas, -BEBE OTHER, ATTENDEE #1 Role Performed Scrub, First Scrub, Second Cell Saver Telehealth Director Time In 03/21/21 07:28:00 03/21/21 07:28:00 03/21/21 07:50:00 Time Out 03/21/21 09:15:00 03/21/21 09:15:00 03/21/21 09:15:00 Procedure Hip Total Anterior Hip Total Anterior Hip Total Anterior Approach(Right) Approach(Right) Approach(Right) Other Attendee RUBY GUPTA Superficial Wound Closed By: Last Modified By: KAMERON CORREA RN LONGSWORTH, GARY, RN LONGSWORTH, GARY, RN 03/21/21 09:14:09 03/21/21 09:14:09 03/21/21 07:43:00 Entry 7 Entry 8 Entry 9 Case Attendee OTHER, ATTENDEE #2 Sarah Biggs LONGSWORTH, GARY, MAGALYS Side Splitter Role Performed Vendor Sort Worker Underground Production Foreperson, First Time In 03/21/21 07:28:00 03/21/21 07:35:00 03/21/21 07:28:00 Time Out 03/21/21 09:15:00 03/21/21 09:15:00 03/21/21 09:04:00 Procedure Hip Total Anterior Hip Total Anterior Hip Total Anterior Approach(Right) Approach(Right) Approach(Right) Other Attendee SUANDRA NOONAN Superficial Wound Closed By: Last Modified By: KAMERON CORREA RN LONGSWORTH, GARY, RN LONGSWORTH, GARY, RN 03/21/21 07:43:00 03/21/21 09:14:09 03/21/21 09:09:17 Entry 10 Case Attendee FAITH ESCOBEDO RN Role Performed Underground Production Foreperson, Second Time In 03/21/21 09:04:00 Time Out 03/21/21 09:15:00 Procedure Hip Total Anterior Approach(Right) Other Attendee Superficial Wound Closed By: Last Modified By: KAMERON CORREA RN 03/21/21 09:14:09 [facility] IntraOp Case Attendance Audit 03/21/21 09:14:09 Barrel Rifler Button: LONGGA Modifier: LONGGA 1 <+> Time Out 1 <*> Procedure Hip Total Anterior Approach(Right) 2 <+> Time Out 2 <*> Procedure Hip Total Anterior Approach(Right) 3 <+> Time Out 3 <*> Procedure Hip Total Anterior Approach(Right) 4 <+> Time Out 4 <*> Procedure Hip Total Anterior Approach(Right) 5 <+> Time Out 5 <*> Procedure Hip Total Anterior Approach(Right) 6 <+> Time Out 6 <*> Procedure Hip Total Anterior Approach(Right) 7 <+> Time Out 7 <*> Procedure Hip Total Anterior Approach(Right) 8 <+> Time Out 8 <*> Procedure Hip Total Anterior Approach(Right) 9 <*> Procedure Hip Total Anterior Approach(Right) 10 <+> Time Out 10 <*> Procedure Hip Total Anterior Approach(Right) 03/21/21 09:09:17 Barrel Rifler Button: LONGGA Modifier: LONGGA 9 <+> Time Out 9 <*> Procedure Hip Total Anterior Approach(Right) <+> 10 Case Attendee <+> 10 Role Performed <+> 10 Time In <+> 10 Procedure 03/21/21 07:55:56 Barrel Rifler Button: LONGGA Modifier: LONGGA <+> 9 Case Attendee <+> 9 Role Performed <+> 9 Time In <+> 9 Procedure 03/21/21 07:53:41 Barrel Rifler Button: LONGGA Modifier: LONGGA 6 <*> Time In 03/21/21 07:28:00 6 <*> Procedure Hip Total Anterior Approach(Right) 03/21/21 07:53:18 Barrel Rifler Button: LONGGA Modifier: LONGGA <+> 1 Procedure 2 <*> Procedure Hip Total Anterior Approach(Right) 3 <*> Procedure Hip Total Anterior Approach(Right) 4 <*> Procedure Hip Total Anterior Approach(Right) 5 <*> Procedure Hip Total Anterior Approach(Right) 6 <+> Time In 6 <*> Procedure Hip Total Anterior Approach(Right) 7 <*> Procedure Hip Total Anterior Approach(Right) 8 <*> Procedure Hip Total Anterior Approach(Right) 03/21/21 07:43:00 Barrel Rifler Button: LONGGA Modifier: LONGGA <+> 1 Time In 2 <+> Time In 2 <*> Procedure Hip Total Anterior Approach(Right) <+> 3 Case Attendee <+> 3 Role Performed <+> 3 Time In <+> 3 Procedure <+> 4 Case Attendee <+> 4 Role Performed <+> 4 Time In <+> 4 Procedure <+> 5 Case Attendee <+> 5 Role Performed <+> 5 Time In <+> 5 Procedure <+> 6 Case Attendee <+> 6 Role Performed <+> 6 Procedure <+> 6 Other Attendee <+> 7 Case Attendee <+> 7 Role Performed <+> 7 Time In <+> 7 Procedure <+> 7 Other Attendee <+> 8 Case Attendee <+> 8 Role Performed <+> 8 Time In <+> 8 Procedure [facility] IntraOp Case Times Entry 1 Patient In Room Time 03/21/21 07:28:00 Out Room Time 03/21/21 09:15:00 Anesthesia Start Time 03/21/21 07:28:00 Stop Time 03/21/21 09:15:00 Anesthesia Ready 03/21/21 07:28:00 Surgery / Procedure Times Start Time 03/21/21 07:52:00 Stop Time 03/21/21 09:09:00 Last Modified By: KAMERON CORREA RN 03/21/21 07:40:57 [facility] IntraOp Case Times Audit 03/21/21 09:14:07 Barrel Rifler Button: LONGGA Modifier: LONGGA <+> 1 Out Room Time <+> 1 Stop Time 03/21/21 09:13:29 Barrel Rifler Button: LONGGA Modifier: LONGGA <+> 1 Stop Time 03/21/21 07:53:13 Barrel Rifler Button: LONGGA Modifier: LONGGA <+> 1 Start Time [facility] IntraOp Cautery Entry 1 ESU Identification Cautery Type Monopolar ESU ID Number [id number] ID Type Hospital Number Cautery Settings Cut Setting 70 Coag Setting 70 ESU Grounding Pad Ground Pad Type Adult Grounding Pad Site Left Lower Abdomen Grounding Pad KAMERON CORREA RN Applied By Grounding Pad Site Intact Skin Condition Before Cautery Grounding Pad Site Unchanged Skin Condition After Cautery Last Modified By: KAMERON CORREA RN 03/21/21 08:10:50 [facility] IntraOp Communication Entry 1 Communication To Family/Significant other Comment PROCEDURE STARTING Communication By KAMERON CORREA RN Date and Time 03/21/21 07:56:00 Last Modified By: KAMERON CORREA RN 03/21/21 07:56:15 [facility] IntraOp Counts Verification Entry 1 Procedure Hip Total Anterior Approach(Right) Count Info Count Type Sponge, Sharps Counts Verification Baseline/pre-procedure Sequence Count Results Correct, surgeon notified Counts Performed By Count Performed By TIEN CLAY ST (Scrub) Count Performed By KAMERON CORREA RN (RN) Last Modified By: KAMERON CORREA RN 03/21/21 08:10:23 [facility] IntraOp Counts Final Entry 1 Procedure Hip Total Anterior Approach(Right) Final Count Info Count Type Sponge, Sharps Counts Verification Skin Closure/end of Sequence procedure Count Results Correct, surgeon notified Counts Performed By Count Performed By TIEN CLAY ST (Scrub) Count Performed By KAMERON CORREA RN (RN) Last Modified By: KAMERON CORREA RN 03/21/21 08:58:55 [facility] IntraOp Cultures and Spec Summary Entry 1 Cultrures and Specimens Specimen Ordered: Yes Test(s) Routine/Path-Lab Requested/Final Disposition Last Modified By: KAMERON CORREA RN 03/21/21 07:56:35 [facility] IntraOp Delays Entry 1 Delay Reason No Delay Duration 0 Minute(s) Last Modified By: KAMERON CORREA RN 03/21/21 08:10:03 [facility] IntraOp Departure from OR Entry 1 Integumentary Assessment Integumentary WDL Assessment WDL Skin Description Dry (WDL with exeptions) Transfer/Handoff Transfer to PACU Phase I Handoff Method Bedside/Face to face Post-op Transport Bed (including Via specialty) Patient Transport SIS SHAH, Accompanied by SUNNY WAGGONER GARY RN Last Modified By: KAMERON CORREA RN 03/21/21 08:59:05 [facility] IntraOp Dressing and Packing Entry 1 Type Dressing Location RIGHT HIP Tape Type Paper Applied By Mati Fuentes RNFA Other Comments BRYON NIEVES DRESSING Last Modified By: KAMERON CORREA RN 03/21/21 08:58:36 [facility] IntraOp Dressing and Packing Audit 03/21/21 08:58:36 Barrel Rifler Button: MARY Modifier: LONGGA 1 <-> Wound Dressing Item Occlusive dressing 1 <*> Other Comments LIZBETH E IntraOp Fire Risk Assessment Entry 1 Fire Info Surgical Site or 0- No Incision Above the Xyphoid Open O2 Source 0- No (Mask or Cannula) Available Ignition 1- Yes (ESU, Laser, Light Source) Fire Risk 1 Assessment Score Fire Score Fire Risk Yes Assessment Complete Fire Risk KAMERON CORREA RN Assessment Verified By Fire Risk 03/21/21 08:09:00 Assessment Verified Date/Time Fire Risk High Risk Protocol Yes Implemented Standard Fire Yes Safety Precautions Followed Last Modified By: KAMERON CORREA RN 03/21/21 07:53:22 [facility] IntraOp Fire Risk Assessment Audit 03/21/21 08:09:15 Barrel Rifler Button: MARY Modifier: LONGGA <+> 1 Fire Risk Assessment Verified By <+> 1 Fire Risk Assessment Verified Date/Time <+> 1 High Risk Protocol Implemented [facility] IntraOp General Case Packer 1 Case Information OR OR 05 [facility] Case Level 1 Room Verified Yes Wound Class I - Clean Specialty Orthopedic Anesthesia Type General ASA Class 3 Diagnosis Preop Diagnosis DEGENERATIVE JOINT DISEASE, RIGHT HIP Postop Same As Preop Yes Postop Diagnosis DEGENERATIVE JOINT DISEASE, RIGHT HIP Last Modified By: KAMERON CORREA RN 03/21/21 08:09:05 [facility] IntraOp Implant Log Entry 1 Entry 2 Entry 3 Type Implant (Synthetic) Implant (Synthetic) Implant (Synthetic) Implant Log Implant Type Hardware Hardware Hardware Tissue Implant Type Implant TRIDENT ACEL CLUSTER INSRT TRIDENT X3 0DEG D HIP STEM ACCOLADE II Identification [id number] Description Implant Quantity 1 1 1 Implant Site RIGHT HIP RIGHT HIP RIGHT HIP Implant Identification Model Number Implant Identification Serial Number Implant [id number] Identification Lot Number Implant Goodrich Ortho Cap Nikita:Goodrich Goodrich:Goodrich Identification Orthopaedics Orthopaedics Econometrician Name: Implant [id number] Identification Catalog Number Implant Size Implant Has an Yes Yes Yes Expiration Date Implant Expiration 10/18/25 11/02/25 12/23/25 Date Wasted Radioactive Material Time Implanted Tissue Implant Continue for Tissue Implant Documentation Tissue Identification Number Graft Prep Per Econometrician Instructions: Tissue Preparation Method: Reconstitution Solution: Reconstitution Solution Lot Number Reconstitution Solution Expiration Date: Thawing Solution Thawing Solution Lot Number Thawing Solution Expiration Date Preparation Materials, Other Preparation Materials, Other Lot Number Preparation Materials, Other Expiration Date Tissue Prepared/Processed By Econometrician Paperwork Completed Implant Type Comment Last Modified By: KAMERON CORREA RN LONGSWORTH, GARY, RN LONGSWORTH, GARY, RN 03/21/21 08:19:39 03/21/21 08:20:33 03/21/21 08:43:38 Entry 4 Type Implant (Synthetic) Implant Log Implant Type Hardware Tissue Implant Type Implant HEAD FEM BIOLOX V40 Identification [id number] Description Implant Quantity 1 Implant Site RIGHT HIP Implant Identification Model Number Implant Identification Serial Number Implant [id number] Identification Lot Number Implant Nikita:Nikita Identification Orthopaedics Econometrician Name: Implant [id number] Identification Catalog Number Implant Size Implant Has an Yes Expiration Date Implant Expiration 09/27/25 Date Wasted Radioactive Material Time Implanted Tissue Implant Continue for Tissue Implant Documentation Tissue Identification Number Graft Prep Per Econometrician Instructions: Tissue Preparation Method: Reconstitution Solution: Reconstitution Solution Lot Number Reconstitution Solution Expiration Date: Thawing Solution Thawing Solution Lot Number Thawing Solution Expiration Date Preparation Materials, Other Preparation Materials, Other Lot Number Preparation Materials, Other Expiration Date Tissue Prepared/Processed By Econometrician Paperwork Completed Implant Type Comment Last Modified By: KAMERON CORREA RN 03/21/21 08:47:34 [facility] IntraOp Implant Log Audit 03/21/21 08:47:34 Barrel Rifler Button: MARY Modifier: MARY <+> 4 Implant Identification Description <+> 4 Implant Identification Lot Number <+> 4 Implant Identification Econometrician Name: <+> 4 Implant Expiration Date <+> 4 Implant Site <+> 4 Implant Quantity <+> 4 Implant Identification Catalog Number <+> 4 Implant Type <+> 4 Implant Has an Expiration Date <+> 4 Type 03/21/21 08:43:38 Barrel Rifler Button: MARY Modifier: LONGGA <+> 3 Implant Identification Description <+> 3 Implant Identification Lot Number <+> 3 Implant Identification Econometrician Name: <+> 3 Implant Expiration Date <+> 3 Implant Site <+> 3 Implant Quantity <+> 3 Implant Identification Catalog Number <+> 3 Implant Type <+> 3 Implant Has an Expiration Date <+> 3 Type 03/21/21 08:20:33 Barrel Rifler Button: LONGGA Modifier: LONGGA <+> 2 Implant Identification Description <+> 2 Implant Identification Lot Number <+> 2 Implant Identification Econometrician Name: <+> 2 Implant Expiration Date <+> 2 Implant Site <+> 2 Implant Quantity <+> 2 Implant Identification Catalog Number <+> 2 Implant Type <+> 2 Implant Has an Expiration Date <+> 2 Type [facility] IntraOp Intraoperative Assessment Entry 1 Handoff Method Bedside/Face to face Valid History / Yes Physical in Chart Preoperative Yes Checklist Reviewed/Evaluated Allergies Reviewed Yes Patient is Latex No Sensitive Isolation Not applicable Precautions Noted Level of WDL Consciousness (WDL = Alert, Oriented to Person, Place, and Time) Skin Assessment Yes Verified Present Upon IVs Arrival to OR Last Modified By: KAMERON CORREA RN 03/21/21 07:57:15 [facility] IntraOp Intraoperative Equipment Entry 1 Type Equipment Equipment Equipment Kyle Suction System ID Number [id number] Setting HIGH Intraop Monitoring Antiembolic Devices Scopes Photo/Video Documentation Last Modified By: KAMERON CORREA RN 03/21/21 08:08:32 [facility] IntraOp Medication Admin Entry 1 Entry 2 Entry 3 Medication/Irrigant heparin 1000units/ml SEALR AQUAMANTYS BIPLR CLONIDINE-10ML 10ml - [id number] Combo Med List 1 - Combo Med Time Administered Route of CELLSAVER RESIDENTIAL COLLECTIONS INJECTION, RIGHT HIP Administration Dose Dose 16700 0.8 Unit of Measure units ml Volume 30ML Administered By OTHER, ATTENDEE #1 DARY GAMEZ JR, JR, DARY GAMEZ JR, JR, -ORT -ORT Procedure Irrigation Irrigant Volume In Irrigant Volume Out Last Modified By: LONGSWORTH, KAMERONMAGALYS Magaña GARY, RN LONGSWORTH, GARY, RN 03/21/21 08:02:57 03/21/21 08:02:57 03/21/21 08:02:57 Entry 4 Entry 5 Entry 6 Medication/Irrigant Ketorolac 30mg/ml vial Naropin 0.5% 30ml vial Xylocaine 1% w/ - [id number] epinephrine 1:200,000 30ml vial - [id number] Combo Med List 1 - Combo Med 1 - Combo Med 1 - Combo Med Time Administered Route of INJECTION, RIGHT HIP INJECTION, RIGHT HIP INJECTION, RIGHT HIP Administration Dose Dose 1 25 23.2 Unit of Measure ml ml ml Volume Administered By DARY GAMEZ JR, JR, HUFF JR, WALLACE JR, HUFF JR, WALLACE JR, MD-ORAlejandro BERRIOSORAlejandro BERRIOSORAlejandro Procedure Irrigation Irrigant Volume In Irrigant Volume Out Last Modified By: KAMERON CORREA RN LONGSWORTH, GARY, RN LONGSWORTH, GARY, RN 03/21/21 08:02:57 03/21/21 08:02:57 03/21/21 08:02:57 [facility] IntraOp Patient Positioning Entry 1 Procedure Hip Total Anterior Approach(Right) Body Position Supine Left Arm Position Secured on padded arm board Right Arm Position Secured across chest Left Leg Position Traction Right Leg Position Traction Feet Uncrossed Yes Pressure Points Yes Checked Positioning Devices Arm Board, Table, Ben Bolt, Safety Strap, Chest Device Position HANA TABLE; PERINEAL POST Positioned By SIS SHAH CRNA-KURT, DARY GAMEZ JR, JR, MD-ORT, KAMERON CORREA RN, Mati Fuentes, LAUNCH MANAGER Position Verified Positioning Yes Verified by Anesthesia Positioning Yes Verified by Surgeon Last Modified By: KAMERON CORREA RN 03/21/21 07:59:06 [facility] IntraOp Sign In Entry 1 Patient, Site, Yes Procedure Identified Surgical Consent Yes Confirmed Relevant Surgical Yes Documents Available Surgical Site Yes Marked by person performing procedure Anesthesia Machine Yes Check Completed Medication Checks Yes Completed Allergies Yes Airway Difficult Yes Airway/Aspiration Risk Difficult Yes Airway/Aspiration Intervention Equipment Available Blood Loss Risk Yes Blood Loss Yes Intervention Equipment Prepared and Ready Blood Identifiers Yes Verified Per Policy Hypothermia Risk Yes Warming Measures Yes Taken Last Modified By: KAMERON CORREA RN 03/21/21 07:58:10 [facility] Intra Op Sign Out Entry 1 RN Confirmation Surgical Yes Procedure(s) Identified Instrument, Sponge Yes and Sharps Counts Correct/Documented Equipment Problems Yes Documented Specimen Labeled Yes Correctly Urinary Catheter N/A Documented in IView [place] Patient Yes Recovery Concerns Reviewed with Anesthesia Provider, Surgeon and RN [place] Patient Yes Management Concerns Reviewed with Anesthesia Provider, Surgeon and RN Safety Checklist Yes Elements Complete? RN Sign Out FAITH ESCOBEDO, MAGALYS Signature RN Sign Out 03/21/21 09:15:00 Signature Date/Time Plan of Care Outcome - Fire Risk OUTCOME STATEMENT: Goal met Patient is free from injury related to surgical fire Plan of Care Outcome - Pt Positioning OUTCOME STATEMENT: Goal met Absence of signs and symptoms of positioning injury. Plan of Care Outcome - Skin Prep OUTCOME STATEMENT: Goal met Intraoperative care is consistent with measures to prevent infection Plan of Care Outcome - Xray/Images OUTCOME STATEMENT: Goal met Absence of observable signs or symptoms of radiation injury Plan of Care Outcome - Counts OUTCOME STATEMENT: Goal met Absence of signs and symptoms of injury related to extraneous objects Last Modified By: KAMERON CORREA RN 03/21/21 09:14:24 [facility] IntraOp Skin Prep Entry 1 Procedure Hip Total Anterior Approach(Right) Prescribed Yes Pre-Surgical Prep Completed Prep Area RIGHT HIP Intraop Prep Integumentary WDL Assessment WDL Prep Agents DuraPrep Prep by KAMERON CORREA RN Hair Removal Methods No hair removal performed Last Modified By: KAMERON CORREA RN 03/21/21 07:57:56 [facility] IntraOp Skin Prep Audit 03/21/21 10:21:05 Barrel Rifler Button: MARY Modifier: LONGGA 1 <*> Prep Agents Chloraprep 1 <*> Procedure Hip Total Anterior Approach(Right) [facility] IntraOp Surgical Procedures Entry 1 Procedure Hip Total Anterior Approach Modifiers Right Additional RIGHT DIRECT ANTERIOR Procedure TOTAL HIP ARTHROPLASTY Description Primary Procedure Yes Primary Surgeon DARY GAMEZ JR, JR, MD-ORT Start 03/21/21 07:52:00 Stop 03/21/21 09:09:00 Anesthesia Type General Specialty Orthopedic Wound Class I - Clean Last Modified By: KAMERON CORREA RN 03/21/21 07:53:18 [facility] IntraOp Surgical Procedures Audit 03/21/21 09:13:33 Barrel Rifler Button: LONGGA Modifier: LONGGA <+> 1 Stop [facility] IntraOp Temp Regulation Devices Entry 1 Temp Regulation Temperature Conductive warming Regulation Device device placed over patient Temperature 4764 Regulation Device Serial/Unit Number Temperature Upper body Regulation Site Temperature Device 43 Setting Temperature SIS SHAH, Regulation Device MANAGER MERCHANDISING-ANS Applied by Last Modified By: KAMERON CORREA RN 03/21/21 07:57:33 [facility] IntraOp Time Out Entry 1 Procedure to be Hip Total Anterior Performed Approach(Right) Time Out Time Out Pause Time 03/21/21 07:51:00 All activity Yes suspended (unless life threatening emergency) Team Verbally Correct patient Confirms Information identity, Correct side and site are marked, Consent form is present and accurate, Agreement on the procedure to be done, Correct patient position, Relevant images/results properly labeled/appropriately displayed, Confirm antibiotics have been administered, Confirm the skin prep has dried, Confirm prosthesis/implant/devic e is present, Performed in location of procedure after prepped/draped, Performed before each procedure if multiple procedures Antibiotic Yes Prophylaxis Administered Or In Progress Within the Last 60 Minutes Beta Cononr Yes Administered Venous N/A Thromboembolism Prophylaxis Required Anticipated Critical Events Surgeon None expected Anesthesia Provider Patient specific concerns Nursing Assures Sterility of instruments, Equipment concerns or issues, Implant Availability Essential Imaging Yes Labeled and Displayed Last Modified By: KAMERON CORREA RN 03/21/21 07:57:13 [facility] IntraOp X-Ray and Images Entry 1 X-Ray/Imaging Type Fluoroscopy Fluoroscopy Type C-Arm Site RIGHT HIP Oil Pipeline Operator Name Sarah Biggs, Side Splitter Protective Devices Yes Used Last Modified By: KAMERON CORREA RN 03/21/21 07:56:34 Case Comments <None> Finalized By: KAMERON CORREA, RN Document Signatures Signed By: KAMERON CORREA RN 03/21/21 09:14 KAMERON CORREA RN 03/21/21 10:21 Unfinalized History Date/Time Username Reason for Unfinalizing Freetext Reason for Unfinalizing 03/21/21 10:20 MARY Correct Documentation Electronically signed by Dilia [facility] Conversion Sewing Machine Operator Plastic Zipper Cerner at 03/21/2023 12:53 PM CDT documented in this encounter Plan of Treatment Not on file documented as of this encounter Visit Diagnoses Not on filedocumented in this encounter
--- OUTSIDE RECORDS SUMMARY | 2025-05-24 10:35 | XMS_ITS | Encounter Summary ---
Author Organization [employer] Address [address] [place] [address] Care Team Providers Care Linux Systems Engineer Name Role Phone Unavailable Primary Care Provider Unavailabl e Encounter Details Date Type Department Care Team (Late st Contact Info) Description 03/08/2021 Transcribed Document [facility] [place] Medicine [address] [place] [address] ProviderLibrado MD [address] [place] [address] Social History Tobacco Use Types [...] Librado ProviderMD - 03/08/2021 9:34 AM CDT PAT Adult Entered On: 03/08/2021 9:37 EDT Performed On: 03/08/2021 9:34 EDT by Deisy Collins RN Vital Measurements Temperature Source : Temporal artery scanning Temperature Mode : Fahrenheit Temperature, Fahrenheit : 96.7 Deg F (LOW) Clinical Temperature, C : 35.9 Deg C Pulse Method : Pulse Oximetry Peripheral Pulse Rate : 58 bpm (LOW) Respiratory Rate : 16 Breaths/Min Blood Pressure Location : Leg, left upper Blood Pressure Source : Non-Invasive BP Device Blood Pressure Position : Sitting Systolic Blood Pressure : 163 mmHg (HI) Diastolic Blood Pressure : 75 mmHg Oxygen Saturation : 99 % Oxygen Therapy Mode : Room air Deisy Collins RN - 03/08/2021 9:34 EDT Height and Weight, Clinical Dosing Height Source : Measured Height Entry Format : Mcdonough Height, Feet : 5 ft(Converted to: 152 cm, 60 Inch) Height, Inches : 7 Inch(Converted to: 0 ft 7 Inch, 17.78 cm) Clinical Height : 170.18 cm Weight Source : Standing scale Weight Entry Format : Mcdonough Clinical Dosing Weight : 95 kg Weight, Pounds : 209 lb Body Surface Area (BSA) : 2.06 m2 Body Mass Index : 32.8 kg/m2 (HI) [place] Body Weight : 61 kg Deisy Collins RN - 03/08/2021 9:34 EDT Health Histories Smoking Status : Former smoker, quit more than 30 days ago Smokeless Tobacco Status : Never Deisy Collins RN - 03/08/2021 9:34 EDT Social History (As Of: 03/08/2021 09:37:58 EDT) Tobacco: Former smoker, quit more than [...] (Last Updated: 01/25/2021 11:31:22 EST by Deisy Collins RN) Nutrition/Health: Caffeine intake amount: no. (Last Updated: 07/06/2018 10:28:20 EDT by Irma Holloway RN) Regular, Caffeine intake amount: maybe 2 cups per week. (Last Updated: 01/25/2021 11:31:46 EST by Deisy Collins RN) Home/Environment: Lives with Spouse. (Last Updated: 07/06/2018 10:28:26 EDT by Irma Holloway RN) Lives with Spouse. Home equipment: CPAP/BiPAP, [...] Symptoms : None Deisy Collins RN - 03/08/2021 9:34 EDT COVID19 PreProcedure Screening Is this an Emergent or Add on Procedure? : No Date PreProcedure COVID-19 test known? : No Has patient been isolated since the test : N/A - PreProcedure, in-person visit Exposed to COVID19 symptoms since test? : N/A - PreProcedure, in-person visit Deisy Collins RN - 03/08/2021 9:34 EDT Anesthesia/Transfusion History Family History of Anesthesia Reaction : No prior transfusion(s) Transfusion History : Prior anesthesia reaction Type of Anesthesia Reaction : Excessive nausea/vomiting, Other: hard to wake up Family History of Anesthesia Reaction : None Deisy Collins RN - 03/08/2021 9:34 EDT Advance Directive Patient has Advance Directive *Q : No, patient refuses Advance Directive information Deisy Collins RN - 03/08/2021 9:34 EDT [place] Suicide Severity Rating Scale (C-SSRS) CSSRS Past Month Wish to be : No CSSRS Past Month Suicidal Thoughts : No CSSRS Lifetime Suicide Behavior : No Suicide Severity Rating Score : 0 Suicide Severity Rating : No Additional Care Required at this time Deisy Collins RN - 03/08/2021 9:34 EDT Psychosocial History Do You Have a History of the Following? : Patient denies history Currently in Unsafe Situation : No Deisy Collins RN - 03/08/2021 9:34 EDT General Info Want Family/Rep/Phys Notified of Admit : No Emergency Contact #1 : Sandip Tavares Emergency Contact #1 or [phone] Emergency Contact #1 Relationship : Spouse Emergency Contact #2 : . Emergency Contact #2 Phone Number : . Emergency Contact #2 Relationship : . Primary Language : Setswana Preferred Communication Mode : Verbal Communication Barrier : None Senior Escrow Officer Needed : No Deisy Collins RN - 03/08/2021 9:34 EDT Jt Scale Jt Sensory Perception : No impairment Jt Moisture : Rarely moist Jt Activity : Walks occasionally Jt Mobility : Slightly limited Jt Nutrition : Adequate Jt Friction and Shear : Potential problem Jt Score : 19 Deisy Collins RN - 03/08/2021 9:34 EDT Sleep Apnea Risk Assmt BiPAP/CPAP Ordered for Home Use : Yes Hx of Obstructive Sleep Apnea Diagnosis : Yes BiPAP/CPAP Used at Home : Yes Age over 50 Years Old : Yes Gender Male : No Deisy Collins RN - 03/08/2021 9:34 EDT Electronically signed by Kristina Dobbs Conversion Custodial Maintenance Worker Cerner at 03/21/2023 1:21 PM CDT documented in this encounter Plan of Treatment Not on file documented as of this encounter Visit Diagnoses Not on filedocumented in this encounter
--- OUTSIDE RECORDS SUMMARY | 2025-05-24 10:35 | XMS_ITS | Encounter Summary ---
Author Organization [employer] Address [address] [place] [address] Care Team Providers Care Stitchdown Thread Laster Name Role Phone Unavailable Primary Care Provider Unavailabl e Encounter Details Date Type Department Care Team (Late st Contact Info) Description 03/22/2021 Transcribed Document [facility] [place] [address] [place] [address] ProviderLibrado MD [address] [place] [place], [place] [address] Social History Tobacco Use Types Packs/Day Years Used Date Smoking Tobacco: Never Assessed Comments Unknown Sex and Gender Information Value Date Recorded Sex Assigned at Not on file Legal Sex Female 1:10 PM CDT Gender Identity Not on file Sexual Orientation Not on file documented as of this encounter Miscellaneous Notes * Cerner Conversion Note - Historical ProviderMD - 03/22/2021 3:58 PM CDT Discharge Summary, PT Entered On: 03/22/2021 15:59 EDT Performed On: 03/22/2021 15:58 EDT by PABLO ABDALLA PTA Discharge Summary Reason for Discharge : Discharged from hospital, All goals met PABLO ABDALLA PTA - 03/22/2021 15:58 EDT Discharge Summary Comment, PT : Patient was discharged home follow up from [facility] on 03/22/21 having met 3/3 acute therapy goals. Patient will have assistance at home from family members as needed. At time of discharge patient was independent with bed mobility, SBA for transfers with RWx, ambulated ~ 200' with RWx SBA, safely ascended/descended 4 steps using LABOR CONTRACT ANALYST/CGA, safely ascended/descended 1 platform step with RWx CGA, and participated with LE exercises. Patient would continue to benefit from further skilled PT services to improve LE strength, gait mechanics, and functional mobility to maximize recovery from right anterior SALUD. I agree with above D/C summary. Bonnie Manuel, PT AYLIN MANUEL, PT - 03/22/2021 16:12 EDT Detention Goals Other PT LTG Grid Goal #1 [...] 03/28/2021 EDT 03/28/2021 EDT Goal Status : Goal met Goal met Goal met Date Met : 03/22/2021 EDT 03/22/2021 EDT 03/22/2021 EDT PABLO ABDALLA, DISCHARGE COORDINATOR - 03/22/2021 15:58 EDT PABLO ABDALLA, DISCHARGE COORDINATOR - 03/22/2021 15:58 EDT PABLO ABDALLA, DISCHARGE COORDINATOR - 03/22/2021 15:58 EDT documented in this encounter Plan of Treatment Not on file documented as of this encounter Visit Diagnoses Not on filedocumented in this encounter
--- OUTSIDE RECORDS SUMMARY | 2025-05-24 10:35 | XMS_ITS | Encounter Summary ---
Author Organization [employer] Address [address] [place] [id number] Care Team Providers Care Art Gallery Director Name Role Phone Unavailable Primary Care Provider Unavailabl e Encounter Details Date Type Department Care Team (Late st Contact Info) Description 03/22/2021 Transcribed Document [facility] [place] [address] [place] [address] ProviderLibrado MD [address], [place] [id number] Social History Tobacco Use Types Packs/Day Years Used Date Smoking Tobacco: Never Assessed Comments Unknown Sex and Gender Information Value Date Recorded Sex Assigned at Not on file Legal Sex Female 1:10 PM CDT Gender Identity Not on file Sexual Orientation Not on file documented as of this encounter Miscellaneous Notes * Cerner Conversion Note - Historical ProviderMD - 03/22/2021 2:00 AM CDT Flask Maker Details Entered On: 03/22/2021 1:18 EDT Performed On: 03/22/2021 2:00 EDT by Mayela Grandaos, Rn Order Details Transport Mode Order Detail : Wheelchair Isolation Precautions Order Detail : Standard Precautions Order Detail : 0 IV Order Detail : 1 Oxygen Order Detail : 0 Nurse Collect Order Detail : 0 Lift/Transfer : Minimal Central Line Order Detail : No Room Service : Not Appropriate Arterial Line : No Patient Needs Meds Crushed/Liquid : No Mayela Granados, Rn - 03/22/2021 1:18 EDT documented in this encounter Plan of Treatment Not on file documented as of this encounter Visit Diagnoses Not on filedocumented in this encounter
--- OUTSIDE RECORDS SUMMARY | 2025-05-24 10:35 | XMS_ITS | Clinical Summary ---
Author Organization [employer] Address [address] [place] [id number] Care Team Providers Care Repairer Sash And Door Name Role Phone Unavailable Primary Care Provider Unavailabl e Social History Tobacco Use Types Packs/Day Years Used Date Smoking Tobacco: Never Assessed Comments Unknown Sex and Gender Information Value Date Recorded Sex Assigned at Not on file Legal Sex Female 1:10 PM CDT Gender Identity Not on file Sexual Orientation Not on file Plan of Treatment Not on file
--- OUTSIDE RECORDS SUMMARY | 2025-05-24 10:35 | XMS_ITS | Encounter Summary ---
Author Organization [employer] Address [address] [place] [address] Care Team Providers Care Telegraph Inspector Name Role Phone Unavailable Primary Care Provider Unavailabl e Encounter Details Date Type Department Care Team (Late st Contact Info) Description 01/25/2021 Transcribed Document [facility] [place] [address] [place] [address] ProviderLibrado MD [address] [place] [address] Social History Tobacco Use Types Packs/Day Years Used Date Smoking Tobacco: Never Assessed Comments Unknown Sex and Gender Information Value Date Recorded Sex Assigned at Not on file Legal Sex Female 1:10 PM CDT Gender Identity Not on file Sexual Orientation Not on file documented as of this encounter Miscellaneous Notes * Cerner Conversion Note - Librado ProviderMD - 01/25/2021 11:00 AM PLAYGROUND SUPERVISOR Patient: JOIE TAVARES Age: 60 Years Sex: Female : 1960 Chief Complaint Right Hip Pain Primary Care Provider EBONY IZAGUIRRE MD History of Present Illness This patient is a pleasant 60 yo WF who presents with right hip pain. The pain has been going on for a year but has gotten progressively worse. She describes it as a sharp pain. It is now to the point that it is affecting her ADLs. She has tried NSAIDs and injections without relief of her pain. She has not fallen. She has used a cane as an assistive device. She was seen at Dr Gallegos's office and evaluated and it was determined that she has severe DJD affecting the right hip. Pt was offered a Right Total Hip Arthroplasty via Anterior Approach and agreed to the procedure. Pt denies a h/o DVT/PE. She has had N/V with anesthesia in the past. Pt has a h/o YOANA and wears CPAP. No COPD or YOANA. Review of Systems Constitutional: Neg for fevers or chills. Eyes: Neg for blurry vision or change in vision. ENT: Neg for sore throat, ear pain, or dizziness. Cardiac: Neg for chest pain or dyspnea on exertion. Respiratory: Neg for shortness of breath. Gastrointestinal: Neg for nausea, vomiting, diarrhea, or constipation. Musculoskeletal: Pos for right hip pain. Neurologic: Neg for headaches or seizures. Psychiatric: Neg for anxiety and depression. Integumentary: Neg for rash. Vital Signs T: 36.1 ??C HR: 65(Peripheral) RR: 16 BP: 170/81 SpO2: 97% HT: 170.18 cm WT: 99.09 kg BMI: 34.2 Oxygen Settings (Last) Oxygen Therapy Mode: Room air (01/25/21 11:29:00) Physical Exam Constitutional: This is a pleasant 60 yo WF in no acute distress. HEENT: Normocephalic, atraumatic. PEERLA. Extraocular muscles intact. Conjunctiva pink without exudate. Oropharynx pink and moist. Neck supple. No JVD. Cardiac: SI, S2. RRR. No M/R/G. Respiratory: Lungs CTA bilaterally. No wheezes, rales, or rhonchi. Abdomen: Soft, nontender, nondistended. Active bowel sounds. No visible masses. Musculoskeletal: Bilateral LE without clubbing, cyanosis or edema. Integumentary: Skin is pink, warm and dry. No rashes. Neurologic: CN II-XII grossly intact. Psychiatric: Judgment and affect appropriate. Assessment/Plan 1. Preoperative Evaluation- Pt underwent preoperative laboratory workup and diagnostic studies. 2. Right Hip Pain secondary to DJD- Proceed with surgery as scheduled with Dr Gallegos on 02/07/2021. 3. Kidney Stones- Continue Allopurinol. 4. Hypertension- Continue Losartan, Furosemide and Metoprolol. 5. Seasonal Allergies- Continue Singulair and Loratadine. 6. Migraines- Continue Sumatriptan. 7. Hot flashes- Continue Venlafaxine. 8. YOANA- Continue CPAP. Problem List/Past Medical History Ongoing Arthritis Bladder spasms central vein retinal occlusion, Right Eye Fibromyalgia Hip pain, right History of obstructive sleep apnea HTN (hypertension) IBS (irritable bowel syndrome) Impaired vision Kidney stone with Stent Placed Migraine YOANA on CPAP RA (rheumatoid arthritis) Seasonal allergies Sinusitis Procedure/Surgical History APPENDECTOMY, arthroscopy both knees, Bilateral Cataract Removal with IOL Implants, Colonoscopy, cysto lithotripsy, Cystoscopy, facet injects and rhizotomy, heart cath and lexiscan stress test 2011, left total knee with Titanium, retina; vein injections monthly, right CTR, right wrist joint fusion, RTKA with Titanium, several hammertoe/bunion surgeries, trigger finger, tubal. Home Medications (12) Active allopurinol 100 mg, Oral, Daily fluticasone 50 mcg/inh nasal spray See Instructions furosemide 40 mg, PRN, Oral, Daily loratadine 10 mg, Oral, Daily losartan 25 mg oral tablet 25 mg = 1 Tab, Oral, Daily meloxicam 15 mg, Oral, Daily metoprolol tartrate 150 mg, Oral, BID oxybutynin 10 mg, Oral, Daily Singulair 10 mg oral tablet 10 mg = 1 Tab, Oral, Daily SUMAtriptan 100 mg, PRN, Oral, Daily venlafaxine 37.5 mg oral capsule, extended release 37.5 mg = 1 Cap, Oral, QPM Vitamin D3 5,000 Int Units, Oral, Daily Allergies amitriptyline (O/E - paralysis, Aphasia, Hallucinations) Peanuts (Tingling) Latex (Itching, hives) Cats (Congestion) Dexpak Jr. Taperpak (Migraine, Insomnia) Dilaudid (Slow to wake up after anesthesia) Mold (Congestion) Pennsaid (Itching) chlorhexidine topical (Itching, Rash) tyllenol 3 (headache, headache) Social History Alcohol Alcohol Use History No. Alcohol Use History Yes. Date/Time of Last Drink: rare. 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 Home/Environment Lives with Spouse. Home equipment: CPAP/BiPAP, Walker/Cane. Alcohol abuse in household: No. Substance abuse in household: No. Smoker in household: No. Injuries/Abuse/Neglect in household: No. Lives with Spouse. Nutrition/Health Regular, Caffeine intake amount: maybe 2 cups per week. Caffeine intake amount: no. Substance Abuse Drug Use Hx: No. Use in Last 12 Months: No. Drug Use Hx: No. Use in Last 12 Months: No. Tobacco Former smoker, quit more than 30 days ago Smoking Status. Never Smokeless Tobacco Status. Years of Use: 15. Packs/Tins Daily: 1. Last Used: quit 1992. Family History Pt mother is alive with Diabetes Mellitus and a Pacer. Pt father at 61 from a CVA. Diagnostic Results EKG- Sinus Faizan, 52 CXR- NAD Lab Results Test Name Test Result Date/Time Sodium Level 141 mmol/L 01/25/2021 11:44 EST Potassium Level 4.1 mmol/L 01/25/2021 11:44 EST Chloride Level 111 mmol/L 01/25/2021 11:44 EST Carbon Dioxide Level 28 mmol/L 01/25/2021 11:44 EST Anion Gap 6 (Low) 01/25/2021 11:44 EST Glucose Level 94 mg/dL 01/25/2021 11:44 EST Blood Urea Nitrogen 33 mg/dL (High) 01/25/2021 11:44 EST Creatinine Level 1.12 mg/dL (High) 01/25/2021 11:44 EST eGFR 60 mL/min/1.73m2 01/25/2021 11:44 EST eGFR NonAfrican 50 mL/min/1.73m2 (Low) 01/25/2021 11:44 EST Bun/Creatinine 29.5 (High) 01/25/2021 11:44 EST Calcium Level 9.2 mg/dL 01/25/2021 11:44 EST Protein Total 6.6 Gram/dL 01/25/2021 11:44 EST Albumin Level 3.3 Gram/dL (Low) 01/25/2021 11:44 EST Globulin 3.3 Gram/dL 01/25/2021 11:44 EST A/G Ratio 1.0 (Low) 01/25/2021 11:44 EST Bilirubin Total 0.5 mg/dL 01/25/2021 11:44 EST Alk Phos 95 Units/Liter 01/25/2021 11:44 EST AST 18 Units/Liter 01/25/2021 11:44 EST ALT 32 Units/Liter 01/25/2021 11:44 EST Hgb A1C 5.30 % 01/25/2021 11:44 EST eAVG Glucose 105 mg/dL 01/25/2021 11:44 EST WBC 7.7 K/uL 01/25/2021 11:44 EST RBC 4.67 Million/uL 01/25/2021 11:44 EST Hgb 14.5 Gram/dL 01/25/2021 11:44 EST Hct 43.8 % 01/25/2021 11:44 EST MCV 93.8 fL 01/25/2021 11:44 EST MCH 31.0 pg 01/25/2021 11:44 EST MCHC 33.1 Gram/dL 01/25/2021 11:44 EST Platelet Count 263 K/uL 01/25/2021 11:44 EST MPV 11.0 fL 01/25/2021 11:44 EST RDW 13.4 % 01/25/2021 11:44 EST Neut % 58.6 % 01/25/2021 11:44 EST Neut # 4.52 K/uL 01/25/2021 11:44 EST Lymph % 27.6 % 01/25/2021 11:44 EST Lymph # 2.13 K/uL 01/25/2021 11:44 EST [place] % 7.4 % 01/25/2021 11:44 EST [place] # 0.57 K/uL 01/25/2021 11:44 EST Eos % 5.3 % 01/25/2021 11:44 EST Eos # 0.41 K/uL 01/25/2021 11:44 EST Baso % 0.8 % 01/25/2021 11:44 EST Baso # 0.06 K/uL 01/25/2021 11:44 EST Slide Review No 01/25/2021 11:44 EST IG# 0 x10(3)/uL 01/25/2021 11:44 EST IG% 0 % 01/25/2021 11:44 EST PT 10.6 Second(s) 01/25/2021 11:44 EST INR 1.0 01/25/2021 11:44 EST PTT 26.5 Second(s) 01/25/2021 11:44 EST Urine Type. U CleanCatch 01/25/2021 11:44 EST Urine Color DK YELLOW 01/25/2021 11:44 EST Urine Appearance CLOUDY2 (Abnormal) 01/25/2021 11:44 EST Urine Specific [place] 1.024 01/25/2021 11:44 EST Urine pH Dipstick *5.0 01/25/2021 11:44 EST Urine Leukocyte Esterase MODERATE2 (Abnormal) 01/25/2021 11:44 EST Urine Nitrite NEGATIVE2 01/25/2021 11:44 EST Urine Protein Dipstick 100 (Abnormal) 01/25/2021 11:44 EST Urine Glucose Dipstick NEGATIVE2 01/25/2021 11:44 EST Urine Ketones Dipstick NEGATIVE2 01/25/2021 11:44 EST Urine Urobilinogen Dipstick 0.2 01/25/2021 11:44 EST Urine Bilirubin Dipstick NEGATIVE2 01/25/2021 11:44 EST Urine Blood Dipstick LARGE2 (Abnormal) 01/25/2021 11:44 EST Ur RBC 50-100 (Abnormal) 01/25/2021 11:44 EST Ur WBC 5-10 (Abnormal) 01/25/2021 11:44 EST Ur Bacteria Trace (Abnormal) 01/25/2021 11:44 EST Ur Mucous 1+ (Abnormal) 01/25/2021 11:44 EST Ur Epithelial Cells 2-5 (Abnormal) 01/25/2021 11:44 EST Urine Culture if Indicated Not Indicated 01/25/2021 11:44 EST documented in this encounter Plan of Treatment Not on file documented as of this encounter Visit Diagnoses Not on filedocumented in this encounter
--- OUTSIDE RECORDS SUMMARY | 2025-05-24 10:35 | XMS_ITS | Encounter Summary ---
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 Name Role Phone Unavailable Primary Care Provider Unavailabl e Encounter Details Date Type Department Care Team (Late st Contact Info) Description 03/22/2021 Transcribed Document [facility] [address] [place] [address] ProviderLibrado MD [address] [place] [address] Social History Tobacco Use Types Packs/Day Years Used Date Smoking Tobacco: Never Assessed Comments Unknown Sex and Gender Information Value Date Recorded Sex Assigned at Not on file Legal Sex Female 1:10 PM CDT Gender Identity Not on file Sexual Orientation Not on file documented as of this encounter Miscellaneous Notes * Cerner Conversion Note - Lirbado ProviderMD - 03/22/2021 12:43 PM CDT [address] [address] GARYSUSAN GARRISONForrest HALL :1960 Visit Time:03/21/2021 Your Visit Summary Your Care Team Admitting Physician - DARY GAMEZ JR, JR, MD-ORT Attending Physician - DARY GAMEZ JR, JR, MD-ORT Primary Care Physician - EBONY IZAGUIRRE (REF), IDNORA Referring Physician - KALEB, NOT LISTED Your [...] Instructions From Your Care Team Community Services: [facility] Physical Therapy Home Health Services: [facility] Medical Equipment for Home Use: Patient has [...] When 04/03/2021 09:15 AM EDT Where: [address] [facility] [address] [place] [address]- Medications What How Much When Instructions Next Dose aspirin (aspirin 81 mg oral delayed release tablet) 1 Tablet(s) Oral Two Times A Day Duration: 45 Day(s) cefadroxil (cefadroxil 500 mg oral capsule) 1 Capsule(s) Oral Every 12 hours Duration: 6 Day(s) docusate (docusate sodium 100 mg oral tablet) 1 Tablet(s) Oral Two Times A Day as needed for for constipation Pickup at [facility] oxyCODONE (oxyCODONE 5 mg oral tablet) See instructions Take 1-2 tab every 6 hours as needed for severe pain traMADol (traMADol 50 mg oral tablet) See instructions Take 1-2 tab every 6 hours as needed for moderate severe pain acetaminophen (acetaminophen 500 mg oral capsule) 2 Capsule(s) Oral Three Times A Day Duration: 30 Day(s) fluticasone nasal (fluticasone 50 mcg/ inh nasal spray) 50 Microgram(s) Nasal Two Times A Day as needed for Allergies venlafaxine (venlafaxine 37.5 mg oral capsule, extended release) 1 Capsule(s) Oral Every Evening allopurinol 100 Milligram(s) Oral Every Day cholecalciferol (Vitamin D3) 5,000 International Units Oral Every Day dicyclomine (dicyclomine 20 mg oral tablet) 1 Tablet(s) Oral Two Times A Day furosemide 40 Milligram(s) Oral Every Day as needed for Edema loratadine 10 Milligram(s) Oral Every Day losartan (losartan 25 mg oral tablet) 1 Tablet(s) Oral Every Day metoprolol (metoprolol tartrate) 150 Milligram(s) Oral Two Times A Day montelukast (Singulair 10 mg oral tablet) 1 Tablet(s) Oral Every Day SUMAtriptan 100 Milligram(s) Oral Every Day as needed for as needed for migraine headache Pharmacy Information [facility]: [address] [phone] Take your medications faithfully. Do NOT skip [...] topical (Itching, Rash) tyllenol 3 (headache, headache) Immunizations This Visit No Immunizations Found Education Materials What to expect after the Procedure: After the procedure, it is common to have: ??? Pain and swelling. ??? A small amount of blood or clear fluid coming from your incision for up to 7 days ??? It is normal to have a [...] pillows, this will decrease swelling ??? Continue using walker until cleared by [...] to help prevent pneumonia ??? Leave Mepilex dressing on until follow-up appointment. ??? ASA 81mg twice a day for 45 [...] swelling in your calf or thigh ??? Shortness of breath or diffiulty breathing ??? chest pain DVT: Blood Clot [...] Barley. Bulgur wheat. Millet. Bran muffins. Popcorn. Sycamore wafer crackers. Vegetables Sweet potatoes. Spinach. Kale. Artichokes. Cabbage. Broccoli. Green peas. Carrots. Squash. Fruits Berries. Pears. Apples. Oranges. Avocados. Prunes and raisins. Dried figs. Meats and Other Protein Sources [place], kidney, romero, and soy beans. Split peas. [...] humza has 11 g of protein. ??? [place] seeds ??? 1 oz has 5.5 g [...] floor. ??? Place frequently used items in hyha-rs-jwydq places ??? Keep electrical cables out of [...] should also wash your hands: ??? After: ??? Working or playing outside. ??? Touching an animal or its toys or leash. ??? Handling livestock. ??? Using the bathroom. ??? Using household securities counselor or toxic chemicals. ??? Touching or taking out the garbage. ??? Touching anything dirty around your home. ??? Handling soiled clothes or rags. ??? Taking care of a sick child. This includes touching used tissues, toys, and clothes. ??? Sneezing, coughing, or blowing your nose. ??? Using public transportation. ??? Shaking hands. ??? Using a phone, including your mobile phone. ??? Touching money. ??? Before and after: ??? Preparing food. ??? Feeding a baby or young child. ??? Eating. ??? Visiting or taking care of someone who is sick. ??? Changing a diaper. ??? Changing a bandage (dressing) or taking care of an injury or wound. ??? Giving or taking medicine. If soap and [...] Step down with your stronger leg. FAQ ??? Patient COVID-19 testing Why do [...] through the local health department and the [place] Department for Public Health. Those organizations are [...] and need to call 911, notify the color control operator that you have, or think you [...] clean your hands with an alcohol-based hand able bodied watchman that contains at least 60% alcohol. Clean your hands often. ??? Wash hands: Wash your hands often with soap and water for at least 20 seconds when visibly dirty. This is especially important after blowing your nose, coughing or sneezing, and going to the bathroom, and before eating or preparing food. ??? Hand able bodied watchman: Use an alcohol-based hand able bodied watchman with at least 60% alcohol, covering all [...] and water or put them in the assistant professor in family studies. Clean all high-touch surfaces every day. Clean [...] or body fluids on them. ??? Household securities counselor and disinfectants: Clean the area or item [...] list of disinfectants can be found here: https://www.epa.gov/pesticide-registration/tebw-d-uxnrtincxneho-spe-xvbflxs-ub rs-cov-2 ondansetron (oral) (on ELAINA se rc) Zofran, Zofran ODT, Zwesley What is the most important information I [...] may report side effects to FDA at 9-478-PFN-5127. What other drugs will affect ondansetron? Ondansetron [...] interact with ondansetron. This includes prescription and ozzk-rjd-sjaiypq medicines, vitamins, and herbal products. Give a [...] to ensure that the information provided by [employer]. ('Multum') is accurate, up-to-date, and complete, but no guarantee is made to that effect. Drug information contained herein may be time sensitive. [employer] information has been compiled for use by healthcare practitioners and consumers in the [place] and therefore [employer] does not warrant that uses outside of the [place] are appropriate, unless specifically indicated otherwise. [employer]'s drug information does not endorse drugs, diagnose patients or recommend therapy. [facility] drug information is an informational resource designed [...] effective or appropriate for any given patient. [facility] does not assume any responsibility for any aspect of healthcare administered with the aid of information [facility] provides. The information contained herein is not intended to cover all possible uses, directions, precautions, warnings, drug interactions, allergic reactions, or adverse effects. If you have questions about the drugs you are taking, check with your doctor, nurse or pharmacist. Copyright 8135-3210 [employer]. Version: 13.01. Revision Date: 09/20/2016. cephalexin (sef [...] may report side effects to FDA at 5-395-LFK-4920. What other drugs will affect cephalexin? Tell your doctor about all your other medicines, especially: ?? metformin; or ?? probenecid. This list is not complete. Other drugs may affect cephalexin, including prescription and rdwi-mjc-tgfmdjk medicines, vitamins, and herbal products. Not all [...] to ensure that the information provided by [employer]. ('[employer]WithMe') is accurate, up-to-date, and complete, but no guarantee is made to that effect. Drug information contained herein may be time sensitive. [employer] information has been compiled for use by healthcare practitioners and consumers in the [place] and therefore [employer] does not warrant that uses outside of the [place] are appropriate, unless specifically indicated otherwise. [employer] drug information does not endorse drugs, diagnose patients or recommend therapy. [employer] drug information is an informational resource designed [...] effective or appropriate for any given patient. [employer] does not assume any responsibility for any aspect of healthcare administered with the aid of information [employer] provides. The information contained herein is not intended to cover all possible uses, directions, precautions, warnings, drug interactions, allergic reactions, or adverse effects. If you have questions about the drugs you are taking, check with your doctor, nurse or pharmacist. Copyright 0859-9964 [employer]. Version: 10.03. Revision Date: 12/04/2020. acetaminophen (oral) (a SEET a MIN oh fen) Actamin, Anacin AF, Aurophen, Bromo [place], Children's Tylenol, Mapap, M-Pap, Pharbetol, Silapap Childrens, [...] is a pain reliever and a fever automatic blocker. There are many brands and forms of [...] Never mix and match dosing devices between formulations of acetaminophen. You may need to [...] may report side effects to FDA at 9-193-PBW-5612. What other drugs will affect acetaminophen? Other drugs may affect acetaminophen, including prescription and euqt-taj-muywrwz medicines, vitamins, and herbal products. Tell your [...] to ensure that the information provided by [employer]. ('Multum') is accurate, up-to-date, and complete, but no guarantee is made to that effect. Drug information contained herein may be time sensitive. [employer] information has been compiled for use by healthcare practitioners and consumers in the [place] and therefore [employer] does not warrant that uses outside of the [place] are appropriate, unless specifically indicated otherwise. [employer]'s drug information does not endorse drugs, diagnose patients or recommend therapy. [employer] drug information is an informational resource designed [...] effective or appropriate for any given patient. [employer] does not assume any responsibility for any aspect of healthcare administered with the aid of information [employer] provides. The information contained herein is not intended to cover all possible uses, directions, precautions, warnings, drug interactions, allergic reactions, or adverse effects. If you have questions about the drugs you are taking, check with your doctor, nurse or pharmacist. Copyright 1811-4687 [employer]. Version: 21.04. Revision Date: 07/07/2020. meloxicam (oral/injection) [...] may report side effects to FDA at 8-752-YBA-9811. What other drugs will affect meloxicam? Ask [...] drugs may affect meloxicam, including prescription and uzli-kat-qizdpkh medicines, vitamins, and herbal products. Not all [...] to ensure that the information provided by [employer]. ('CoverMyMed[employer]um') is accurate, up-to-date, and complete, but no guarantee is made to that effect. Drug information contained herein may be time sensitive. [employer] information has been compiled for use by healthcare practitioners and consumers in the [place] and therefore [employer] does not warrant that uses outside of the [place] are appropriate, unless specifically indicated otherwise. [address] drug information does not endorse drugs, diagnose patients or recommend therapy. [address] drug information is an informational resource designed [...] effective or appropriate for any given patient. [employer] does not assume any responsibility for any aspect of healthcare administered with the aid of information [employer] provides. The information contained herein is not intended to cover all possible uses, directions, precautions, warnings, drug interactions, allergic reactions, or adverse effects. If you have questions about the drugs you are taking, check with your doctor, nurse or pharmacist. Copyright 7319-9776 [employer]. Version: 14.01. Revision Date: 10/03/2020. docusate (oral/rectal) (DOK ue [...] hands before and after using the enema. To use the enema, lie on your left side with your left leg extended and your right leg slightly bent. Remove the cap from the applicator tip and gently insert the tip into your rectum. Slowly squeeze the bottle to empty the contents into the rectum. After using the enema, lie down on your left side for at least 30 minutes to allow the liquid to distribute throughout your intestines. Avoid using the bathroom, and hold in the enema at least 1 hour, or all night if possible. Read and carefully follow any Instructions for Use provided with your medicine. Ask your doctor or pharmacist if you do not understand these instructions. Docusate generally produces bowel movement in 12 to 72 hours. Call your doctor if your symptoms do not improve after 72 hours. documented in this encounter Plan of Treatment Not on file documented as of this encounter Visit Diagnoses Not on filedocumented in this encounter
--- OUTSIDE RECORDS SUMMARY | 2025-05-24 10:35 | XMS_ITS | Encounter Summary ---
Author Organization [employer] Address [address] [place] [address] Care Team Providers Care Cctv Technician Name Role Phone Unavailable Primary Care Provider Unavailabl e Encounter Details Date Type Department Care Team (Late st Contact Info) Description 03/22/2021 Transcribed Document [facility] [address] [place] [address] ProviderLibrado MD [address], [place] [id number] Social History Tobacco Use Types Packs/Day Years Used Date Smoking Tobacco: Never Assessed Comments Unknown Sex and Gender Information Value Date Recorded Sex Assigned at Not on file Legal Sex Female 1:10 PM CDT Gender Identity Not on file Sexual Orientation Not on file documented as of this encounter Miscellaneous Notes * Cerner Conversion Note - Historical ProviderMD - 03/22/2021 12:07 PM CDT TONG Entered On: 03/22/2021 12:08 EDT Performed On: 03/22/2021 12:07 EDT by MADDIE ALTAMIRANO MD-INT TONG Indication of use for OOCS : Acute Illness OOCS Misuse Suspected : Other Was TONG queried : Other Patient Advised to seek OOCS Treatment : Other Treatment to Include Limited Supply of OOCS : Other TONG Result : Other TONG Other Notes : As per Dr. Calderon office records Patient cancelled on OOCS : Other TONG : . MADDIE ALTAMIRANO MD-INT - 03/22/2021 12:07 EDT documented in this encounter Plan of Treatment Not on file documented as of this encounter Visit Diagnoses Not on filedocumented in this encounter
--- OUTSIDE RECORDS SUMMARY | 2025-05-24 10:35 | XMS_ITS | Encounter Summary ---
Author Organization [facility] Address [address] [place] [address] Care Team Providers Care Medical Dir Name Role Phone Unavailable Primary Care Provider Unavailabl e Encounter Details Date Type Department Care Team (Late st Contact Info) Description 03/08/2021 Transcribed Document [facility] [place] [address] [place] [address] ProviderLibrado MD [address] [place], [place] [address] Social History Tobacco Use Types Packs/Day Years Used Date Smoking Tobacco: Never Assessed Comments Unknown Sex and Gender Information Value Date Recorded Sex Assigned at Not on file Legal Sex Female 1:10 PM CDT Gender Identity Not on file Sexual Orientation Not on file documented as of this encounter Miscellaneous Notes * Cerner Conversion Note - Librado ProviderMD - 03/08/2021 8:28 AM CDT Patient: JOIE TAVARES Age: 60 Years Sex: [...] Integumentary: Neg for rash. Vital Signs T: 35.9 ??C HR: 58(Peripheral) RR: 16 BP: 163/75 SpO2: 99% HT: 170.18 cm WT: 95 kg BMI: 32.8 Oxygen Settings (Last) Oxygen Therapy Mode: Room air (03/08/21 09:34:00) Physical Exam Constitutional: This is a pleasant [...] surgery as scheduled with Dr Gallegos on 03/21/2021. 3. Kidney Stones- Continue Allopurinol. 4. Hypertension- [...] test 2011, left total knee with Titanium, Lithotripsy, retina; vein injections monthly, right CTR, right wrist joint fusion, RTKA with Titanium, several hammertoe/bunion surgeries, trigger finger, tubal. Home Medications (13) Active allopurinol 100 mg, Oral, Daily fluticasone [...] Test Name Test Result Date/Time Sodium Level 142 mmol/L 03/08/2021 09:44 EDT Potassium Level 3.7 mmol/L 03/08/2021 09:44 EDT Chloride Level 110 mmol/L 03/08/2021 09:44 EDT Carbon Dioxide Level 27 mmol/L 03/08/2021 09:44 EDT Anion Gap 9 03/08/2021 09:44 EDT Glucose Level 84 mg/dL 03/08/2021 09:44 EDT Blood Urea Nitrogen 22 mg/dL 03/08/2021 09:44 EDT Creatinine Level 0.80 mg/dL 03/08/2021 09:44 EDT eGFR >60 mL/min/1.73m2 03/08/2021 09:44 EDT eGFR NonAfrican >60 mL/min/1.73m2 03/08/2021 09:44 EDT Bun/Creatinine 27.5 (High) 03/08/2021 09:44 EDT Calcium Level 9.5 mg/dL 03/08/2021 09:44 EDT Protein Total 7.0 Gram/dL 03/08/2021 09:44 EDT Albumin Level 3.4 Gram/dL 03/08/2021 09:44 EDT Globulin 3.6 Gram/dL 03/08/2021 09:44 EDT A/G Ratio 0.9 (Low) 03/08/2021 09:44 EDT Bilirubin Total 0.4 mg/dL 03/08/2021 09:44 EDT Alk Phos 106 Units/Liter 03/08/2021 09:44 EDT AST 22 Units/Liter 03/08/2021 09:44 EDT ALT 24 Units/Liter 03/08/2021 09:44 EDT Hgb A1C 5.40 % 03/08/2021 09:44 EDT eAVG Glucose 108 mg/dL 03/08/2021 09:44 EDT PT 11.2 Second(s) 03/08/2021 09:44 EDT INR 1.1 03/08/2021 09:44 EDT PTT 25.7 Second(s) 03/08/2021 09:44 EDT Urine Type. U CleanCatch 03/08/2021 09:44 EDT Urine Color YELLOW2 03/08/2021 09:44 EDT Urine Appearance CLEAR2 03/08/2021 09:44 EDT Urine Specific [place]our 1.012 03/08/2021 09:44 EDT Urine pH Dipstick *5.0 03/08/2021 09:44 EDT Urine Leukocyte Esterase MODERATE2 (Abnormal) 03/08/2021 09:44 EDT Urine Nitrite NEGATIVE2 03/08/2021 09:44 EDT Urine Protein Dipstick NEGATIVE2 03/08/2021 09:44 EDT Urine Glucose Dipstick NEGATIVE2 03/08/2021 09:44 EDT Urine Ketones Dipstick NEGATIVE2 03/08/2021 09:44 EDT Urine Urobilinogen Dipstick 0.2 03/08/2021 09:44 EDT Urine Bilirubin Dipstick NEGATIVE2 03/08/2021 09:44 EDT Urine Blood Dipstick MODERATE2 (Abnormal) 03/08/2021 09:44 EDT Ur RBC 10-20 (Abnormal) 03/08/2021 09:44 EDT Ur WBC 20-50 (Abnormal) 03/08/2021 09:44 EDT Ur Bacteria 2+ (Abnormal) 03/08/2021 09:44 EDT Ur Mucous 1+ (Abnormal) 03/08/2021 09:44 EDT Ur Epithelial Cells 2-5 (Abnormal) 03/08/2021 09:44 EDT Ur Squamous Epithelial Cells 5-10 (Abnormal) 03/08/2021 09:44 EDT Urine Culture if Indicated Culture Ordered 03/08/2021 09:44 EDT WBC- 6.0 Hct- 14.3 Hgb- 44.7 Plt- 263 Urine culture shows contamination only. documented in this encounter Plan of Treatment Not on file documented as of this encounter Visit Diagnoses Not on filedocumented in this encounter
--- OUTSIDE RECORDS SUMMARY | 2025-05-24 10:35 | XMS_ITS | Encounter Summary ---
Author Organization [employer] Address [address] [place] [address] Care Team Providers Care Recyclable Materials Distributor Name Role Phone Unavailable Primary Care Provider Unavailabl e Encounter Details Date Type Department Care Team (Late st Contact Info) Description 03/21/2021 Transcribed Document [facility] Family Medicine [address] [place] [address] ProviderLibrado MD [address], [place] [id number] Social History Tobacco Use Types Packs/Day Years Used Date Smoking Tobacco: Never Assessed Comments Unknown Sex and Gender Information Value Date Recorded Sex Assigned at Not on file Legal Sex Female 1:10 PM CDT Gender Identity Not on file Sexual Orientation Not on file documented as of this encounter Miscellaneous Notes * Cerner Conversion Note - Historical ProviderMD - 03/21/2021 12:11 PM CDT Treatment Intervention, PT Entered On: 03/22/2021 10:14 EDT Performed On: 03/22/2021 9:27 EDT by PABLO ABDALLA, [employer] General Information, PT Visit Type, PT : Treatment Note Patient Orders : Order Date Order Ordering 03/21/2021 10:39 PT Evaluation and Treatment Ordered By: DARY GAMEZ JR, JR, MD-ORT 03/21/2021 12:11 PT Additional Treatment Ordered By: BARBARA NOYOLA, PT Active Diagnoses : 03/21/2021 12:00 Essential (primary) hypertension 03/21/2021 12:00 Irritable bowel syndrome without diarrhea 03/21/2021 12:00 Migraine, unspecified, not intractable, without status migrainosus 03/21/2021 12:00 Obesity, unspecified 03/21/2021 12:00 Obstructive sleep apnea (adult) (pediatric) 03/21/2021 12:00 Pain in right hip 03/21/2021 12:00 Presence of right artificial hip joint 03/21/2021 12:00 Rheumatoid arthritis, unspecified 03/21/2021 12:00 Unilateral primary osteoarthritis, right hip 03/21/2021 12:00 Unspecified visual loss Therapy Diagnosis, PT : aftercare following RTHA-anterior Admission Date : 03/21/2021 04:39 Personal Devices : Personal Devices No Devices Recorded Assistive Devices : Assistive Devices No Devices Recorded PABLO ABDALLA PTA - 03/22/2021 10:05 EDT General Status Patient Received Status : Long sitting in bed, Other: spouse, needs in reach Treatment Start Time : 03/22/2021 9:02 EDT Patient Left Status : Up in chair, Chair alarm activated, RN/PCT informed, All needs met and within reach, Other: spouse RN/PCT Informed Comment : MAGALYS clifton pt for therapy session Treatment End Time : 03/22/2021 9:27 EDT Treatment Time : 25 Minute(s) PABLO ABDALLA PTA - 03/22/2021 10:05 EDT Edu Topics Physical Therapy Education Grid Bed Mobility Training : Verbalizes understanding, Returns demonstration Gait Training : Verbalizes understanding, Returns demonstration Home Program/Exercises : Verbalizes understanding, Returns demonstration Home Safety : Verbalizes understanding Safety : Verbalizes understanding, Returns demonstration Therapeutic Exercises : Verbalizes understanding, Returns demonstration Transfer Training : Verbalizes understanding, Returns demonstration Use of Assistive Device : Verbalizes understanding, Returns demonstration PABLO ABDALLA PTA - 03/22/2021 10:05 EDT Plan of Care, PT PT Tx Plan/Goals Established w Patient : Yes PABLO ABDALLA PTA - 03/22/2021 10:05 EDT Penitentiary Goals Other PT LTG Grid Goal #1 [...] EDT 03/22/2021 EDT 03/22/2021 EDT PABLO ABDALLA, BERNARDO - 03/22/2021 10:05 EDT PABLO ABDALLA, BERNARDO - 03/22/2021 10:05 EDT PABLO ABDALLA, BERNARDO - 03/22/2021 10:05 EDT Treatment Note Subjective Comment : Pt agreeable to physical therapy. Patient's Response to Treatment : Good. Additional Objective Information : - supine to sit independent - sit to/from stand SBA with RWx - cues for proper return of exercises - amb ~ 200' SBA with RWx - demonstrated slow pace, step through gait pattern, foot flat, no lost of balance - cues for reciprocal gait, heel toe walking, increase stance time on RLE - pt and spouse educated on stair training, verbalized understanding - pt safely ascended/descended 4 steps no rails using hand held assist/CGA - pt safely ascended/descended 1 platform CGA with RWx - home exercise program issued and educated on exercises, verbalized understanding - RLE ther ex x20 AROM while UIC: LAQ, ankle pumps, quad set, gluteal set, SAQ, supine heel slides, hip abduction, isometric hip adduction - cues for proper return of exercises Gait Trainin minutes Ther Ex: 12 minutes Assessment : Pt has met all current acute therapy goals 3/3 She was able to safely perform gait and transfers with RWx. Once medically cleared pt would be safe to d/c home with family. Pt would benefit from home health and/or outpatient therapy to improve LE strength and promote highest level of function. Plan for Treatment : Anticipated d/c home from [facility] today. PABLO ABDALLA PTA - 03/22/2021 10:05 EDT Pain Assessment Pain Scaled Used : 0-10 Pain scale Pain Score Pre-Intervention : 0 PABLO ABDALLA PTA - 03/22/2021 10:05 EDT Image 1 - Images currently included in the form version of this document have not been included in the text rendition version of the form. [place] PT Charges [employer] PT Therap. Exercise 15 min-[employer] : 1 Gait Training Each 15 Min-[employer] : 1 PABLO ABDALLA PTA - 03/22/2021 10:05 EDT Electronically signed by Dilia, [facility] Conversion Silo Worker Cerner at 03/21/2023 1:04 PM CDT documented in this encounter Plan of Treatment Not on file documented as of this encounter Visit Diagnoses Not on filedocumented in this encounter
--- OUTSIDE RECORDS SUMMARY | 2025-05-24 10:35 | XMS_ITS | Encounter Summary ---
Author Organization [employer] Address [address] [place] [address] Care Team Providers Care Telegraphic Typewriter Installer Name Role Phone Unavailable Primary Care Provider Unavailabl e Encounter Details Date Type Department Care Team (Late st Contact Info) Description 03/21/2021 Transcribed Document [facility] [address] [place] [address] ProviderLibrado MD [address] [place] [id number] Social History Tobacco Use Types Packs/Day Years Used Date Smoking Tobacco: Never Assessed Comments Unknown Sex and Gender Information Value Date Recorded Sex Assigned at Not on file Legal Sex Female 1:10 PM CDT Gender Identity Not on file Sexual Orientation Not on file documented as of this encounter Miscellaneous Notes * Cerner Conversion Note - Librado ProviderMD - 03/21/2021 5:27 PM CDT DATE OF PROCEDURE: 03/21/2021 SURGEON: Chalo Gallegos Jr, MD PREOPERATIVE DIAGNOSIS: Right hip osteoarthritis. POSTOPERATIVE DIAGNOSIS: Right hip osteoarthritis. OPERATION: Direct anterior right hip replacement. ANESTHESIA: General plus local. COMPLICATIONS: None. BLOOD LOSS: 400 mL with Cell Saver return of 225. COMPONENTS USED: Size 48 press-fit acetabular component Nikita with a neutral poly liner to accept a 36 ceramic femoral head component size +0 with a size 3 press-fit femoral component, Accolade II press-fit stem. DESCRIPTION OF PROCEDURE: The patient was taken to the operating room, placed in a supine position with general anesthesia, sterile prep, time-out, IV antibiotics given in the usual fashion. We then made a 4-inch incision lateral and distal to the anterior-superior iliac spine and opened the tensor fascia. Blunt dissection of the tensor rectus interval down to the circumflex vessels were carried out. Once the vessels were identified, they were cauterized and divided. Deep fascia was opened exposing the capsule. The capsulotomy performed exposing the femoral neck with blunt retractors placed around the medial and lateral aspect of the femoral neck. We made the osteotomy at a 50-degree angle just above the lesser trochanter. We removed the diseased femoral head with a corkscrew device. We removed soft tissue from the periphery and bed of the acetabulum sequential reamed up to size 48 at a 45 abduction and 15-degree anteversion angle. Under fluoro control, we were able to get medial slightly and back to good healthy bleeding bone. We placed the final 48 cup under fluoro control in the proper position of 45 and 15-position, and good press-fit fixation was achieved. Neutral poly liner was thus seated and then the femoral hook, we used the external rotation extension of the femur with soft tissue released to allow the femoral elevator to bring the femur to the proper angle for broaching was carried out. Sequential broaching up to a size 3 with good axial rotational stability was noted. We trialed with a +0. We were able to achieve equal leg lengths and good stability on the table. We then placed the final implants, seated the final head component, reduced the hip and x-ray showed excellent position of the implants and equal leg lengths. Irrigation, bleeding were controlled, layered closure, sterile dressing, ice pack, and transferred the patient to the recovery room. Final condition was improved. /[id number] MD SIMIN Infante Jr/SHOBHA / SIMIN / AGATA /[id number] Electronically signed by Kristina Dobbs Conversion Alarm Installation Technician Cerner at 03/21/2023 12:54 PM CDT documented in this encounter Plan of Treatment Not on file documented as of this encounter Visit Diagnoses Not on filedocumented in this encounter
--- OUTSIDE RECORDS SUMMARY | 2025-05-24 10:35 | XMS_ITS | Referral Summary ---
Author Organization [employer] Address [address] [place] [id number] Care Team Providers Care Air Brakes Inspector Name Role Phone Unavailable Primary Care [...]
--- NOTE | 2025-05-24 10:36 | XR_ITS ---
FINAL REPORT CLINICAL HISTORY: Wound of Foot COMPARISON: 04/26/2025 FINDINGS: Three views show postoperative changes from fusion of the first metatarsophalangeal joint. There is bone loss of the first metatarsal head which could be related to postoperative bony resorption or osteomyelitis. There are postoperative changes from fusion of the second PIP joint. The bones are osteopenic. IMPRESSION: New subtle bone loss of the first metatarsal head which could be postoperative or osteomyelitis. Reviewed, Interpreted and Dictated by Wero Almaraz MD Transcribed by Heather Saldivar Authenticated and [facility]
== END 2025-05-24 23:59 | disposition home or self-care (01) ==
LOC: RAD 10:32
PROVIDERS: PCP Nurse Practitioner; Visit Provider Podiatrist
DX: M85.872 Other specified disorders of bone density and structure, left ankle and foot (principal); S99.929A Unspecified injury of unspecified foot, initial encounter
CPT/HCPCS: 73630

== ENCOUNTER 2025-05-30 08:00 | Outpatient (RCR) | payer BC, SELFPAY ==
--- NOTE | 2025-05-02 16:28 | HMH.PTOPWND ---
Rehab Outpt Wound Evaluation Rehab OP Wound Evaluation Start: 05/02/25 14:56 Freq: Status: Active Protocol: Document 05/02/25 15:01 PHORODNEY (Rec: 05/02/25 16:28 PHORNE [id number]) E-signed By Tobias Damon PT Subjective/History History History Patient is a 64 yowf presenting with wound on her L great toe following L great toe hardware removal/ replacement on 03/16/25. She reports continued pain and tenderness throughout the per-wound skin. She has been undergoing regular dressing changes with enzymatic debrider and antibiotic ointment. PMH includes RA, B TKA, HTN. Pt stated, Pressure from dressing caused blister on my foot. Subjective Subjective Pain rating 6/10 at this time. Pt states that she has been cleared for FWB in short fx boot. Wound Eval Wound Left Great Toe Wound Type Incision Is This a Chronic Yes Wound Wound Length (cm) 8.1 Wound Width (cm) 3.2 Wound Depth (cm) 0.1 Wound Bed Appearance Yellow,Slough,Eschar Percentage 5 Granulated (%) Percentage of Slough 5 (%) Percentage of Eschar 90 (Black) (%) Wound Margins Well Defined Description Surrounding Tissue [place] Appearance Drainage Description Serous Drainage Amount Small Primary Dressing Composite Comment therahoney gel, optifoam gentle border. Wound Secondary Adhering Gauze Roll Dressing Type Wound Debridement Sharps,Forceps,Gauze,Mechanical Method Wound Debridement Moderate Amount of Tissue Removed Wound Debridement Healthy Tissue Revealed,Necrotic Tissue Remains Result Dressing Change Tolerated Well Patient Tolerance Devlin-Espinosa Wound Assessment Tool Assessment Wound size 3= Length x Width 16.1--<36 sq cm Wound depth 4=Obscured by necrosis Wound edges 2=Distinct, outline clearly visible, attached, even with wound base Wound undermining 1=None present Necrotic tissue type 4=Adherent, soft, black eschar Necrotic tissue 5=75% to 100% of wound covered amount Exudate type 4=Serous: thin, watery, clear Exudate amount 2=Scant, wound moist but no observable exudate Skin color 1=[place] or normal for ethnic group surrounding wound Peripheral tissue 2=Non-pitting edema extends <4 cm around wound edema Peripheral tissue 1=None present induration Granulation tissue 4=[place], &/or dull, dusky red &/or fills < or = 25% of wound Epithelialization 5= < 25% wound covered Wound assessment 38 total score Wound Problems/Impairments Impairments Problems/ Palpation Tenderness,Impaired Walking,Impaired Shower/ Impairmments Bathing,Impaired Household Care,Wound Care Needs, Subjective C/O Pain,Impaired Self Care/Self Management Prognosis Rehab Potential Good Comment Skilled therapy services required for continued debridement of necrotic tissue and reduction of total wound surface area in order to return pt to PLOF. 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 Number of Weeks 8 Decreased Palpation Yes: 0/4 L great toe Tenderness Decrease Wound Area Yes: by 75% Decrease Subjective Yes: 2/10 at worst L great toe C/O Pain Patient to be Ind w/ Yes Home Wound Care/ Dressing Changes Outpatient Therapy Plan of Care Treatment Plan May Include Therapeutic Exercise Yes Including Home Exercise Program Manual Therapy Yes Techniques Neuromuscular Re- Yes education Therapeutic Yes Activities to Return to Previous Functional/Work Level ADL/Self Care Yes Education Orthotics/Bracing/ Yes Splinting Wound Care Yes Eval/Re-Eval Yes Frequency Times per week 2 Duration Number of Weeks 8 Addendums This patient is a No candidate for social or vocational rehab ? Patient/Guardian Yes verbally acknowledges understanding of treatment program and consents to further treatment? Patient/Guardian Yes verbally acknowledges understanding of diagnosis, prognosis and goals for treatment? Eval Complexity PT Charges 34109 - High Complexity PHYSICIAN CERTIFICATION: I certify the specified therapy services for Joie Tavares are required, authorized, and reviewed every 30 days.
== END 2025-05-30 23:59 | disposition home or self-care (01) ==
LOC: PT 08:00
PROVIDERS: Visit Provider Podiatrist
DX: S91.102A Unspecified open wound of left great toe without damage to nail, initial encounter (principal)
CPT/HCPCS: 97163; 97597; 97598

== ENCOUNTER 2025-05-31 15:57 | Outpatient (RCR) | payer BC, SELFPAY | END 2025-05-31 23:59 | disposition home or self-care (01) | LOC: PT 15:57 | PROVIDERS: PCP Nurse Practitioner; Visit Provider Nurse Practitioner | DX: M79.10 Myalgia, unspecified site (principal); M25.50 Pain in unspecified joint | CPT/HCPCS: 97110 ==

== ENCOUNTER 2025-06-09 13:01 | Outpatient (RCR) | payer BC, SELFPAY ==
--- NOTE | 2025-06-09 14:42 | HMH.RHREAS ---
Rehab Reassessment Rehab OP Re-assessment Start: 06/09/25 14:17 Freq: Status: Active Protocol: Document 06/09/25 14:37 PHORODNEY (Rec: 06/09/25 14:42 PHORNE [id number]) E-signed By Tobias Damon, PT [place] Wound Assessment Tool Assessment Wound size 3= Length x Width 16.1--<36 sq cm Wound depth 5=Full thickness skin loss with extensive destruction, tissue necrosis Wound edges 2=Distinct, outline clearly visible, attached, even with wound base Wound undermining 1=None present Necrotic tissue type 3=Loosely adherent yellow slough Necrotic tissue 3=25% to 50% of wound covered amount Exudate type 5=Purulent: thin or thick, opaque, garner/yellow, withour without odor Exudate amount 3=Small Skin color 2=Bright red &/or blanches to touch surrounding wound Peripheral tissue 1=No swelling or edema edema Peripheral tissue 1=None present induration Granulation tissue 3=Bright, beefy red; <75% & > 25% of wound filled Epithelialization 4=25% to < 50% wound covered Wound assessment 36 total score Rehab Re-assessment Subjective Subjective Pt continues to reports significant sensitivity to light touch on the medial side of the L great toe. Minimal discomfort noted at rest, but increased pain and tenderness with dressing changes. Wound VAC dressing in place with good seal this date. Objective Objective Notes L great toe wound: L= 6.0 cm, W= 3.4 cm, D= 0.3 cm. Wound has healed by 21% since IE, but now has exposed bone in the area of the distal phalanx of the L great toe. Pt had CT scan of her L foot which show possible osteomyelitis at the L great toe MTP joint. Pain 02/07 TTP: 3/4 L great toe Assessment Progress Assessment Slower Than Expected Assessment Notes Pt has shown some healing and reduction of overall wound surface area, but now has exposed bone in the wound which was not present on initial evaluation. Skilled therapy services are indicated to continue to aid decrease in overall wound surface area, improve wound healing, and assist with specialty dressing changes in order to return pt to [facility]. Patient goals met ST LT/4 Plan Plan Continue per initial POC. Frequency of Therapy 1 x/wk Duration of therapy 4 wks Time and Billing Re-Eval Time 11 Re-Eval Billing 1 Units Charge for PT Yes reassessment? PHYSICIAN CERTIFICATION: I certify the specified therapy services for Joie Tavares are required, authorized, and reviewed every 30 days.
== END 2025-06-09 23:59 | disposition home or self-care (01) ==
LOC: PT 13:01
PROVIDERS: Visit Provider Podiatrist
DX: M79.10 Myalgia, unspecified site (principal)
CPT/HCPCS: 97164; 97605

== ENCOUNTER 2025-06-16 11:34 | Day surgery (SDC) | payer BC, SELFPAY ==
[2025-06-16] VITALS (9 sets, daily range): BP systolic 137–167; BP diastolic 58–85; PULSE 53–70; RESP 14–18; TEMP 36.1–36.5; O2SAT 96–100; BMI 31.3
[2025-06-16] MEDS: LACTATED RINGERS 1000ML 1,000 ML 25 ML IV (11:54)
--- NOTE | 2025-06-16 12:17 | P.PNANES_ITS ---
[facility] Disclaimer: The information contained in this section may have been updated after the patient was seen, as this information can be updated by other users. Medical History Rheumatoid arthritis YOANA on CPAP Sleep apnea Fibromyalgia Migraines Arthritis Kidney stone Hypertension Bunion Hammer toe Surgical History History of cardiac cath H/O right wrist surgery RIGHT WRIST FUSION History of carpal tunnel surgery of right wrist History of bilateral knee replacement History of bilateral knee arthroplasty History of colonoscopy H/O tubal ligation History of right hip replacement Hx of appendectomy S/P cystoscopy with ureteral stent placement Family History Other Family history of diabetes mellitus type II Family history of stroke Heart disease Kidney disease Social History Smoking Status: Never smoker second hand exposure: No alcohol intake: never counseling provided: provider counseling substance use type: denies use current occupational status: employed Travel in the last 8 weeks?: None household members: spouse housing: house 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 current occupational exposures/hazards: No caffeine: Yes Have you lived/traveled outside US in past 30 days?: No Contact w/someone who lives/traveled outside US past 30 days?: No Exposure to someone with infectious disease in past 14 days?: No Do you have a fever (greater than 100.4 F or 38 C)?: No Have you tested positive for COVID-19?: No Exposed to someone with COVID-19 in past 14 days?: No Do you have a sore throat?: No Do you have a cough?: No Do you have any weakness?: No Do you have any diarrhea?: No Are you experiencing any unusual bleeding?: No Do you have any muscle aches/pain?: No Do you have any abdominal pain?: No Are you experiencing loss of taste or smell?: No [facility] Anesthesia Checklist Patient Identification Patient Identification: Arm Band and Verbal (Name & ) Structural Data Admitted From: Home Planned Operative Procedure/s: Left foot wound debridement, bone biopsy and culture NPO Status Verified Time NPO: 00:00 Chart Verification Results Verified: ECG Additional verifications Anesthesia Reactions: Yes ( deathly sick need patch) Hx Blood Transfusions: No Blood Transfusion Reaction: No Airway Assessment Mallampati Score:: Class II C-Spine Mobility Assessed: Yes TMJ Mobility Assessed: Yes Dentition: Good Dentition Neurological Assessment Level of Consciousness: Awake, Alert and Appropriate Hx Seizures: No Numbness or tingling in extremities: No Anesthesia Plan Anesthesia Risk discussed: Yes Anesthesia Plan: Verified ASA Class: II Anesthesia Type: MAC w/Block
--- NOTE | 2025-06-16 13:12 | P.OP_ITS ---
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 Patient has had weekly office visits and also has been seen by [facility] wound care clinic. Labs and new images from CT scan were discussed with the patient. CT is suspicious for left proximal phalanx osteomyelitis. We discussed conservative versus surgical treatment options. We discussed conservative care including continued oral vs IV antibiotics and local wound care versus surgical debridement with open bone biopsy. I explained bone biopsy is the gold standard to determine osteomyelitis. Patient understands that they could have further wound healing complications including delayed healing and infection. We discussed that if the wound does not heal, it is possible that they may need further debridement, surgical procedures or treatments. Patient understands if infection spreads into the bone or if biopsy confirms bone infection, she may need further treatment including but not limited to oral vs IV abx, debridement, use of wound graft, use of wound vac, hardware removal, revision surgery, infectious disease intervention. Discussed hallux and partial 1st ray amputation, patient is not willing to consider amp options at this time. Discussed results of biopsy may warrant proximal amputation and could result in further loss of digits, loss of partial foot or loss of leg if left untreated. We discussed the risks and benefits in great detail. Other surgical risks include: prolonged pain and swelling, further infection requiring oral or IV antibiotics, delay in healing of soft tissue or bone, nerve or blood vessel damage, CRPS/RSD, DVT/PE, anesthesia complications. Patient has declined HBOT, referral for 2nd opinion at this time. All questions answered. Patient verbalized understanding and agreement. Verbal and written consent obtained. Operative findings:: Left foot open wound along previous surgical incision site. 1st MTPJ incision has mild edema, periwound erythema. Overall some improvement in proximal wound appearance with wound vac. The proximal wound was granular. The distal wound however had yellow and brown eschar with nonviable stringy tissue. No purulence, malodor or ascending cellulitis. Proximal phalanx medial head was visualized within the wound. Sharp excisional full thickness wound debridement with 15' blade/curette thru skin into subq into deep fascia into bone. The phalanx bone and HIPJ was exposed medially. Rongeur used to do I&D of bone cortex to evaluate for OM. The non-viable soft crumbly medial base distal phalanx and head of the proximal phalanx was resected/debrided with bone rongeur. Separate specimens were sent for bone culture and pathology from distal phalanx, proximal phalanx, first MTPJ and proximal first metatarsal. A piece of the wound was also sent for tissue culture. Post debridement the left medial foot wound was 80% granular, 20% fibrotic and measured 7.1 x 2.5 x 1.5cm. Vancomycin powder inserted into the HIPJ and along the hardware. Post debridement, Prolene was used to perform a partial closure of the distal tissue in order to cover the hardware in the proximal phalanx and cover the HIPJ. Post debridement wound measured 7.1 x 2.4 x 0.5cm. No jhonny purulence expressed. Vancomycin powder was applied along the wound. Wound vac applied in standard technique at 100 medium continuous pressure. Overall prognosis is still guarded, the treatment and outcome will depend on the results of the bone culture and biopsies and patient's compliance. I still recommend ID referral and follow up with [facility] wound care clinic. Operative note:: On this date and time patient was deemed an appropriate surgical candidate. With informed consent signed, the patient was taken to the operating theater after regional nerve block by anesthesia. Patient was positioned supine. General anesthesia was induced. IV Ancef given. No tourniquet utilized. The left lower extremity was prepped and draped in normal sterile fashion. IV Dapto 1g, Cefepime 2g infused. Left wound/ulcer debridement, I&D bone cortex: 15 blade, forceps and curette was used to sharply debride nonviable soft tissue full-thickness through skin, subcu, deep fascia to the level of the bone. Due to the depth of the wound and exposed proximal phalanx bone, it was felt appropriate to take performed and incision of the bone cortex and get a bone biopsy to evaluate for osteomyelitis. An incision was made through the proximal phalanx. Left foot open bone biopsy: A 15 blade was used to dissect the soft tissue over the HIPJ and exposed proximal phalanx bone. The viable soft tissue was lifted up but kept intact for later coverage over the bone. The wound extended full- thickness to the level of the bone. A bone rongeur was used to resect the exposed proximal phalanx medial head from within the wound, it was soft and crumbly but no jhonny purulence expressed. A piece of the distal phalanx base was also removed for specimen; it was soft and crumbly with a yellow color but no purulence. Bone from the first MTPJ was removed; it appeared slightly irregular however it should be noted that there was bone graft that was utilized to perform a revisional first MTPJ fusion in the last surgery so that bone could just be absorption from the bone graft and not necessarily infectious. The medial proximal first metatarsal bone was hard and intact with no obvious signs of infection. Each of bone specimens were sent both bone culture and pathology. Left foot I&D (irrigation and debridement): All nonviable soft tissue and bone was sharply excisionally debrided as above. Next, a pulse lavage was used 2L with gentamicin irrigation to flush all incisions. The wound was explored and no purulence was noted. There was no ascending cellulitis or proximal sinus tracking. Postdebridement there was exposed distal hardware which included the 2 screws in the proximal phalanx base. Vancomycin powder was inserted along hardware and within the HIPJ. Delayed partial closure surgical wound: The intact soft tissue that had been debrided but dissected off the bone previously was then laid over the exposed hardware. Prolene was used to reapproximate the distal aspect of the wound. Partial primary closure was performed. There was still exposed wound, see operative findings for measurements. Application of wound VAC: Clear tape was applied to the skin windowing the wound. Black foam was cut to size and inserted into the wound bed over the antibiotic powder. Wound VAC applied at standard technique and set to 125 mmHg medium continuous. Adequate suction noted to wound site. No leaks noted. Dry sterile dressing was then applied over the left foot. Patient appeared to tolerate anesthesia and procedure well without complication. She was woken from anesthesia with vitals stable and neurovascular status intact to be transferred to recovery before being transferred home today. Materials: gentamicin irrigation, 1g vancomycin powder Discharge/Plan: D/C home today when ready and vital signs stable. Patient is to maintain dressing clean dry and intact. Avoid ice directly to forefoot due to risk of blood vessel constriction and elevate on two pillows. PWB to the LLE in post op shoe or short fracture boot with walker. eRx for Levofloxacin and Gabapentin given. Obtain post op films, left foot, 3 views. Follow up with Podiatry Friday06/20/25 for skin check, wound vac change. Follow up with [facility] wound care clinic ([facility]) in 1 week as scheduled. Condition: stable Disposition: same day Specimens:: Micro: Left foot tissue culture, distal phalanx bone, proximal phalanx bone, 1st MTPJ bone, proximal 1st metatarsal bone Path: Left foot distal phalanx bone, proximal phalanx bone, 1st MTPJ bone, proximal 1st metatarsal bone Complications:: None
[2025-06-16] MEDS: GENTAMICIN 80 MG/2 ML VIAL (13:30)
[2025-06-16] MEDS: SODIUM CHLORIDE IRRIG SOLUTION 3,000 ML 25 ML IR (13:30)
[2025-06-16] MEDS: VANCOMYCIN 1000MG VIAL 1000 MG (13:30)
[2025-06-16] MEDS: CEFEPIME HCL 2 GM in 0.9 % SODIUM CHLORIDE 100 ML IV (13:45)
--- NOTE | 2025-06-16 14:38 | EXP.ANES.I ---
[facility] Anesthesia Record Part I Anesthesia Record I Intake, IV Amount: 700 Hydration: Adequate Estimated blood loss (mL): 0 Urine output (mL): 0 Blood Products used (#): none Blood Pressure: 157/79 SaO2: 96 Pulse Rate: 70 Airway Patency: Patent Respiratory Rate: 14 Temperature: 97.0 F Patient is:: Drowsy and Stable Stable to PACU at:: 14:35
--- NOTE | 2025-06-16 14:45 | XR_ITS ---
FINAL REPORT CLINICAL HISTORY: S/p left 1st MTPJ bone biopsy COMPARISON: 05/24/2025 FINDINGS: LEFT FOOT Three views demonstrate postoperative changes of the first digit, which is similar to the prior exam. Bone detail of the first proximal phalanx and first metatarsal are obscured by hardware. There was no acute fracture is identified. There is no gross bony destruction. There are postoperative changes at the second PIP joint. IMPRESSION: Stable appearing postoperative changes first MTP joint region, bony detail obscured. Reviewed, Interpreted and Dictated by Wero Almaraz MD Transcribed by Dawn Aquino Authenticated and [facility]
--- NOTE | 2025-06-16 15:29 | SUR.PHASEII ---
PT STATED SHE THREW AWAY HER INCENTIVE SPIROMETER FROM LAST SURGERY. NEW ONE PROVIDED TO PATIENT AND PT AND PT'S SPOUSE EDUCATED ON USE. PT VERBALIZED UNDERSTANDING BUT REFUSED RETURN DEMONSTRATION STATING SHE WAS TOO TIRED RIGHT NOW
--- NOTE | 2025-06-16 15:31 | SUR.PHASEII ---
PT STATED SHE ALREADY HAS A POST-OP BOOT WITH HER
--- NOTE | 2025-06-17 11:23 | EXP.ANES.II ---
[facility] Anesthesia Record Part II Anesthesia Record Part II Discharge Time: 15:36 Destination: Surgical Day Care (OP Surgery) PACU nurse assessment reviewed?: Yes Patient Condition:: Good Anesthesia Complications:: None Swallowing reflex intact?: Yes Airway Patency: Patent Cyanosis?: No Blood Pressure: 164/84 SaO2: 98 Respiratory Rate: 17 Pulse Rate: 58 Temperature: 97.0 F Mental Status: Alert & Oriented Pain level:: 0 Nausea and/or vomitting:: None Intake, IV Amount: 0 Hydration: Adequate
[2025-06-17 11:24] VITALS: BP 164/84; PULSE 58; RESP 17; TEMP 36.1; O2SAT 98
== END 2025-06-16 15:40 | disposition home or self-care (01) ==
PROVIDERS: PCP Nurse Practitioner; Visit Provider Podiatrist
PROC: (CPT 11042; principal; 2025-06-16 13:00)
DX: M86.9 Osteomyelitis, unspecified (principal); M96.0 Pseudarthrosis after fusion or arthrodesis; T84.89XA Other specified complication of internal orthopedic prosthetic devices, implants and grafts, initial encounter; Y79.3 Surgical instruments, materials and orthopedic devices (including sutures) associated with adverse incidents; I25.10 Atherosclerotic heart disease of native coronary artery without angina pectoris; M06.9 Rheumatoid arthritis, unspecified; E66.9 Obesity, unspecified; Z68.31 Body mass index [BMI] 31.0-31.9, adult; M79.7 Fibromyalgia; I10 Essential (primary) hypertension; G47.33 Obstructive sleep apnea (adult) (pediatric); Z88.8 Allergy status to other drugs, medicaments and biological substances; Z88.5 Allergy status to narcotic agent; Z91.010 Allergy to peanuts; Z79.891 Long term (current) use of opiate analgesic; Z79.899 Other long term (current) drug therapy
CPT/HCPCS: 11042; 11044; 20240; 28005; 73630; 87070; 87077; 87205; 88304; J0692; J0878; J1580; J2003; J2250; J2405; J2704; J3010; J3370; J7120

== ENCOUNTER 2025-06-29 08:00 | Day surgery (SDC) | payer BC, SELFPAY ==
[2025-06-28 13:12] VITALS: BMI 31.3
[2025-06-29 08:19] VITALS: BP 161/82; PULSE 52; RESP 18; TEMP 36.4; O2SAT 96
--- NOTE | 2025-06-29 09:01 | EXP.OP.NOTE ---
Date of procedure: 06/29/25 Pre-op Diagnosis:: Left foot surgical wound Left venous stasis ulcer B/L venous insufficiency RA Post-op Diagnosis:: Same Procedure performed:: [facility] Application of skin graft substitute leg ([id number]) Surgical prep of skin graft recipient site (55922) Wound debridement (69024) Suture removal Surgeon:: Mony Peterson DPM Anesthesia: none Estimated blood loss (mL): 0 Clinical Note:: Pre-Op indications: Patient is a 64-year-old female with a left foot surgical wound/venous statsis ulcer. Patient has failed conservative treatment, including multiple debridements, various wound dressings, antibiotics, immobilization, wound vac therapy. Patient has seen both [facility] wound care clinic and [facility] (patient unable to tolerate HBOT chamber). Patient had recent CT left foot which showed suspected osteomyelitis. She has had several rounds of oral antibiotics: Cipro, Levo, Doxy, topical gentamicin. Referral for Infectious Disease made, pending culture results. We discussed surgery. All risks and benefits were discussed including but not limited to: damage to blood vessels and nerves, bleeding, infection, wound complications, need for further surgery, implant/graft failure, need for removal of implant/graft, allergic reaction, prolonged or permanent swelling of the extremity, prolonged or permanent pain or deformity, CRPS/RSD, DVT/PE, and anesthetic complications including anaphylaxis or . Patient understands if wound/graft gets infected, it could lead to prolonged oral or IV antibiotics or increased risk of osteomyelitis, which could lead to possible loss of partial foot or even BKA. No guarantees were given. All questions fully answered. The patient verbalized understanding and agreed to proceed with surgery. Verbal and written consent was obtained. *Called lab this morning, bone cultures are still pending from 06/16/25. Operative findings:: Left foot open wound. 1st MTPJ incision has less edema, erythema. Some excoriation secondary to itching to the dorsal lateral foot this has improved. Overall some improvement in appearance with wound vac. No purulence, drainage, malodor or ascending cellulitis. Prolene sutures to distal wound. Sutures removed. Hallux is angulated medially. Exposed plate and one screw in the distal wound at the proximal phalanx level. The hardware was intact with no signs of screw loosening or backing out from the plate. Sharp excisional full thickness wound debridement with 15' blade thru skin into subq into deep fascia. The phalanx bone/HW was exposed but not debrided. Post debridement: Left medial foot wound: 15% yellow fibrotic, 80% granular, 5.2 x 1.4 x 0.4cm. No bleeding with debridement. No jhonny purulence expressed. Operative note:: On this date and time patient was deemed an appropriate surgical candidate. With informed consent signed, the patient was taken to the local procedure operating theater room. The patient was positioned supine. No anesthesia was induced. No tourniquet used. Left lower extremity was prepped and draped in normal sterile fashion. 1g IM Rocephin given. Left medial dorsal foot wound debridement: Sutures x4 removed from distal great toe. Sharp excisional full-thickness debridement with 15 blade, curette down through skin layer, subcutaneous tissue into/including deep fascia. Exposed proximal phalanx bone with exposed plate/distal screw. No purulence or SOI noted. The skin edges were debrided with 15' blade, minimal to no bleeding noted. The wound was flushed with gentamicin irrigation. Skin cleansed with saline. Mastisol applied around the wound edges. Left foot application of Apligraf (Organogenesis wound graft): Graft was prepared in standard fashion. Graft was cut and place dorsally linearly over wound. The other piece of the graft was placed over the distal hallux horizontal. The entire graft (44sq cm) was utilized. The graft was placed over the open wound (and circumferentially around the surrounding skin as the graft was larger than the wound) and secured with Steri-Strips. Adaptic was applied over the graft. Application of wound vac: Black foam cut to size and applied over adaptic. A [employer] medical wound VAC was applied in standard technique at 125 mmHg medium continuous pressure. A gauze, katy, Shaan were applied to left foot. The patient tolerated the procedure well, without complications. Materials: Organogenesis Aligraf wound graft x1 (44sq cm), [employer] wound vac Discharge/Plan: Ok to discharge home when ready and vss. Patient is to maintain dressing clean dry and intact. Elevate on two pillows. Minimize weight bearing. Ideally PWB to heel in fracture boot/post op shoe with walker. Follow up on Friday for wound vac change. Follow up for staged surgery on 07/06/25: Left foot wound debridement, application of wound graft #2. Condition: stable Disposition: same day Complications:: None
[2025-06-29 09:35] VITALS: BP 137/77; PULSE 51; RESP 18; TEMP 36.3; O2SAT 97
[2025-06-29] MEDS: GENTAMICIN 80 MG/2 ML VIAL (09:40)
== END 2025-06-29 09:46 | disposition home or self-care (01) ==
PROVIDERS: PCP Nurse Practitioner; Visit Provider Podiatrist
PROC: (CPT 15002; principal; 2025-06-29 09:00)
DX: I83.025 Varicose veins of left lower extremity with ulcer other part of foot (principal); L97.525 Non-pressure chronic ulcer of other part of left foot with muscle involvement without evidence of necrosis; M06.9 Rheumatoid arthritis, unspecified; M79.7 Fibromyalgia; I10 Essential (primary) hypertension; G47.33 Obstructive sleep apnea (adult) (pediatric); G43.909 Migraine, unspecified, not intractable, without status migrainosus; Z79.899 Other long term (current) drug therapy; Z88.8 Allergy status to other drugs, medicaments and biological substances; Z91.040 Latex allergy status; Z88.5 Allergy status to narcotic agent; Z91.010 Allergy to peanuts
CPT/HCPCS: 15002; 15271; 15272; J1580; Q4101

== ENCOUNTER 2025-07-06 07:55 | Day surgery (SDC) | payer BC, SELFPAY ==
[2025-07-06] VITALS (8 sets, daily range): BP systolic 117–132; BP diastolic 67–92; PULSE 47–72; RESP 16–18; TEMP 36.2–36.3; O2SAT 93–97; BMI 31.3
--- NOTE | 2025-07-06 08:05 | XR_ITS ---
FINAL REPORT CLINICAL HISTORY: PICC line placement COMPARISON: 02/25/2025 FINDINGS: There is a left-sided PICC line with the tip at the junction of the SVC and the right atrium. The heart size is normal. The mediastinum is normal. The lungs are underinflated. There is a calcified granuloma in the left lower lobe. There is no focal infiltrate or edema. There are no pleural effusions. There is no pneumothorax. There is no osseous abnormality. IMPRESSION: No acute cardiopulmonary process Left-sided PICC line tip at the junction of the SVC and the right atrium. Reviewed, Interpreted and Dictated by Mateusz Burroughs MD Transcribed by Cindy Torres Authenticated and [facility]
--- NOTE | 2025-07-06 09:05 | XR_ITS ---
FINAL REPORT CLINICAL HISTORY: PICC placement confirmation...post op pulled back 3 cm and this is the redo chest xray #2 COMPARISON: 20 minutes prior FINDINGS: Left-sided PICC line has been retracted with the tip now at the SVC. The heart size is normal. The mediastinum is normal. The lungs are underinflated. Calcified granuloma is noted in the left lower lobe. There is no focal infiltrate or edema. There are no pleural effusions. There is no pneumothorax. There is no osseous abnormality. IMPRESSION: No acute cardiopulmonary process Left-sided PICC line tip at the SVC. Reviewed, Interpreted and Dictated by Mateusz Burroughs MD Transcribed by Cindy Torres Authenticated and . [facility]
[2025-07-06 09:08] LABS: Hematocrit 41.1 % (37.0-47.0); Hemoglobin 13.1 g/dL (12.2-16.2); Immature Granulocytes % 0.6 %; Mean Corpuscular HGB Conc 31.9 g/dL (31.8-35.4); Mean Corpuscular Hemoglobin 30.0 pg (27.0-31.2); Mean Corpuscular Volume 94.1 fl (81-99); Nucleated Red Blood Cells % 0 %; Platelet Count 222 K/mm3 (142-424); Red Blood Count 4.37 M/mm3 (4.20-5.40); Red Cell Distribution Width-SD 48.3 fL; White Blood Count 9.4 K/mm3 (4.8-10.8)
[2025-07-06 09:15] LABS: Albumin Level 3.6 g/dl (3.5-5.0); Chloride 106 mmol/L (98-107); Potassium 4.3 mmoL/L (3.5-5.1); Sodium 137 mmol/L (136-145)
[2025-07-06 09:18] LABS: Alanine Aminotransferase 23 U/L (12-78); Albumin/Globulin Ratio 1.6 (1.1-1.8); Alkaline Phosphatase 117 U/L (38-126); Anion Gap 7.3 mEq/L (5-15); Aspartate Amino Transferase 26 U/L (14-36); Bilirubin,Total 0.4 mg/dl (0.2-1.3); Blood Urea Nitrogen 34 mg/dl (7-17); Calcium 8.4 mg/dl (8.4-10.2); Carbon Dioxide 28 mmol/L (22.0-30.0); Creatinine Clearance Estimated 82 mL/min (50-200); Creatinine,Serum 0.90 mg/dl (0.52-1.04); Estimated Glomerular Filt Rate 63 ml/min (>60); GFR (African American) 77 ML/MIN (>60); Globulin 2.2 g/dL (1.3-3.2); Glucose 110 mg/dl (74-100); Total Protein,Serum 5.8 g/dl (6.3-8.2)
[2025-07-06 09:24] LABS: C-Reactive Protein 3.8 mg/L (0-4)
[2025-07-06] MEDS: GENTAMICIN 80 MG/2 ML VIAL (09:40)
[2025-07-06 09:42] LABS: Vancomycin,Trough < 5.0 ug/mL (5.0-10.0)
--- NOTE | 2025-07-06 10:10 | EXP.OP.NOTE ---
Date of procedure: 07/06/25 Pre-op Diagnosis:: Left foot surgical wound Left venous stasis ulcer B/L venous insufficiency RA Post-op Diagnosis:: Same Procedure performed:: [facility] Application of skin graft substitute leg ([id number]) Surgical prep of skin graft recipient site (72372) Wound debridement (65319) Surgeon:: Mony Peterson DPM Anesthesia: none Estimated blood loss (mL): 2 Clinical Note:: Pre-Op indications: Patient is a 64-year-old female with a left foot surgical wound/venous stasis ulcer. Patient has failed conservative treatment, including multiple debridements, various wound dressings, antibiotics, immobilization, wound vac therapy. Patient has seen both [facility] wound care clinic and [facility] (patient unable to tolerate HBOT chamber). Patient had recent CT left foot which showed suspected osteomyelitis. She has surgery 06/16/25 for bone biopsy, wound debridement, wound vac application. She has had several rounds of oral antibiotics: Cipro, Levo, Doxy, topical gentamicin. Referral for Infectious Disease made, made on culture results. Recommended PICC, IV Vanco. She had surgery for wound debridement, Organogenesis Apligraf application #1 on 06/29/25. We discussed staged graft application surgery. All risks and benefits were discussed including but not limited to: damage to blood vessels and nerves, bleeding, infection, wound complications, need for further surgery, implant/graft failure, need for removal of implant/graft, allergic reaction, prolonged or permanent swelling of the extremity, prolonged or permanent pain or deformity, temporary or permanent toe angulation/deformity, CRPS/RSD, DVT/PE, and anesthetic complications including anaphylaxis or . Patient understands if wound/graft gets infected, it could lead to prolonged oral or IV antibiotics or increased risk of worsening osteomyelitis, which could lead to possible loss of partial foot or even BKA. No guarantees were given. All questions fully answered. The patient verbalized understanding and agreed to proceed with surgery. Verbal and written consent was obtained. Operative findings:: Left foot open wound. 1st MTPJ incision has less edema and minimal erythema. Some excoriation secondary to itching to the dorsal lateral foot, this has improved. Overall some improvement in appearance with wound vac. No purulence, drainage, malodor or ascending cellulitis. Hallux is angulated medially. Exposed plate and one screw in the distal wound at the proximal phalanx level. The phalanx bone distally was no longer exposed at the HIPJ level. The hardware was intact with no signs of screw loosening or backing out from the plate. Sharp excisional full thickness wound debridement with 15' blade thru skin into subq into deep fascia. Post debridement: Left medial foot wound: 5% yellow fibrotic, 95% granular, 5.0 x 1.3 x 0.3cm. Minimal bleeding with debridement. No jhonny purulence expressed. Operative note:: On this date and time patient was deemed an appropriate surgical candidate. With informed consent signed, the patient was taken to the local procedure operating theater room. The patient was positioned supine. No anesthesia was induced. No tourniquet used. Left lower extremity was prepped and draped in normal sterile fashion. PICC placed, IV Vanco 1g infused. Left medial dorsal foot wound debridement: Sharp excisional full-thickness debridement with 15 blade, curette down through skin layer, subcutaneous tissue into/including deep fascia. Exposed proximal phalanx bone was more covered with exposed plate/distal screw. No purulence or SOI noted. The skin edges were debrided with 15' blade, minimal bleeding noted. The wound was flushed with gentamicin irrigation. Skin cleansed with saline. Mastisol applied around the wound edges. Left foot application of Apligraf (Organogenesis wound graft): Graft was prepared in standard fashion. Graft was cut and place dorsally linearly over wound. The other piece of the graft was placed over the distal hallux horizontal. The entire graft (44sq cm) was utilized. The graft was placed over the open wound (and circumferentially around the surrounding skin as the graft was larger than the wound) and secured with Steri-Strips. Adaptic was applied over the graft. Application of wound vac: Black foam cut to size and applied over adaptic. A [employer] medical wound VAC was applied in standard technique at 125 mmHg medium continuous pressure. A gauze, Shaan were applied to left foot. The patient tolerated the procedure well, without complications. Materials: Organogenesis Aligraf wound graft x1 (44sq cm), [employer] wound vac Discharge/Plan: Ok to discharge home when ready and vss. Patient is to maintain dressing clean dry and intact. Elevate on two pillows. Minimize weight bearing. Ideally PWB to heel in fracture boot/post op shoe with walker. Follow up on Friday for wound vac change. Follow up on with Infectious Disease. Follow up for staged surgery on 07/13/25: Left foot wound debridement, application of wound graft #3. Condition: stable Disposition: same day Complications:: None
[2025-07-06] MEDS: VANCOMYCIN/WATER FOR INJ (PEG) 1.25 GM/250 ML PIGGYBACK IV (10:14)
== END 2025-07-06 13:00 | disposition home or self-care (01) ==
PROVIDERS: PCP Nurse Practitioner; Visit Provider Podiatrist
PROC: (CPT 11043; principal; 2025-07-06 09:30)
DX: I83.025 Varicose veins of left lower extremity with ulcer other part of foot (principal); I87.2 Venous insufficiency (chronic) (peripheral); I99.8 Other disorder of circulatory system; M06.9 Rheumatoid arthritis, unspecified; M86.172 Other acute osteomyelitis, left ankle and foot; L97.529 Non-pressure chronic ulcer of other part of left foot with unspecified severity; T81.89XA Other complications of procedures, not elsewhere classified, initial encounter; T81.31XA Disruption of external operation (surgical) wound, not elsewhere classified, initial encounter; I10 Essential (primary) hypertension; G47.33 Obstructive sleep apnea (adult) (pediatric); M79.7 Fibromyalgia; E66.811 Obesity, class 1; Z68.31 Body mass index [BMI] 31.0-31.9, adult; Z88.8 Allergy status to other drugs, medicaments and biological substances; Z91.040 Latex allergy status; Z88.5 Allergy status to narcotic agent; Z91.010 Allergy to peanuts; Z88.3 Allergy status to other anti-infective agents; Z79.899 Other long term (current) drug therapy
CPT/HCPCS: 11043; 15275; 15276; 71045; 80053; 80202; 85025; 85651; 86140; C1751; J1580; J3375; Q4101

== ENCOUNTER 2025-07-09 05:27 | Emergency (ER) | payer BC, SELFPAY ==
--- OUTSIDE RECORDS SUMMARY | 2025-07-09 05:32 | XMS_ITS | Encounter Summary ---
Author Organization [employer] ([place], [place], [place], [place]) Address [address] [place] [address] Care Team Providers Care Dyeing Machine Feeder Name Role Phone Unavailable Primary Care Provider Unavailabl e Encounter Details Date Type Department Care Team (Late st Contact Info) Description 03/21/2021 Transcribed Document [facility] Family Medicine [facility] [place] [address] ProviderLibrado MD [address] [place] [id number] Social History Tobacco Use Types Packs/Day Years Used Date Smoking Tobacco: Never Assessed Comments Unknown Sex and Gender Information Value Date Recorded Sex Assigned at Not on file Legal Sex Female 1:10 PM CDT Gender Identity Not on file Sexual Orientation Not on file documented as of this encounter Miscellaneous Notes * Cerner Conversion Note - Librado ProviderMD - 03/21/2021 6:45 AM CDT Spiritual [...] Low Spiritual Framework : Integrated, provides strength/resource Restorationism Preference : Gnosticist DAYNA OCONNOR Chaplain-Non Cert - 03/21/2021 7:29 EDT documented in this encounter Plan of Treatment Not on file documented as of this encounter Visit Diagnoses Not on filedocumented in this encounter
--- OUTSIDE RECORDS SUMMARY | 2025-07-09 05:32 | XMS_ITS | Encounter Summary ---
Author Organization [employer] ([place], [place], [place], [place]) Address [address] [place] [address] Care Team Providers Care Fish Agent Name Role Phone Unavailable Primary Care Provider Unavailabl e Encounter Details Date Type Department Care Team (Late st Contact Info) Description 03/21/2021 Transcribed Document [facility] Family Medicine [facility] [place] [address] ProviderLibrado MD [address] [place] [address] Social History Tobacco Use Types Packs/Day Years Used Date Smoking Tobacco: Never Assessed Comments Unknown Sex and Gender Information Value Date Recorded Sex Assigned at Not on file Legal Sex Female 1:10 PM CDT Gender Identity Not on file Sexual Orientation Not on file documented as of this encounter Miscellaneous Notes * Cerner Conversion Note - Librado ProviderMD - 03/21/2021 7:52 AM CDT [facility] Summary Primary Physician: DARY GAMEZ JR, JR, MD-EVANS Finalized Date/Time: 03/21/21 10:11:04 Pt. Name: JOIE TAVARES/Sex: 1960 Female Med Rec #: [id number] Physician: DARY GAMEZ JR, JR, MD-ORT Financial #: [id number] Pt. Type: O Room/Bed: EAS/1 Admit/Disch: 03/21/21 04:39:00 - Institution: [facility] PACU Case Times Entry 1 In PACU I 03/21/21 09:16:00 Ready for PACU 03/21/21 10:10:00 Discharge Discharge from PACU 03/21/21 10:10:00 I Last Modified By: MAN GOODMAN 03/21/21 10:10:56 [facility] PACU Case Times Audit 03/21/21 10:10:56 Stamper Blocker: VALERIA Modifier: COLEMAM <+> 1 Ready for PACU Discharge <+> 1 Discharge from PACU I Finalized By: MAN GOODMAN Document Signatures Signed By: MAN GOODMAN 03/21/21 10:11 Electronically signed by Dilia [facility] Conversion Acquisitions Assistant Cerner at 03/21/2023 1:17 PM CDT documented in this encounter Plan of Treatment Not on file documented as of this encounter Visit Diagnoses Not on filedocumented in this encounter
--- OUTSIDE RECORDS SUMMARY | 2025-07-09 05:32 | XMS_ITS | Clinical Summary ---
Author Organization [employer] ([place], [place], [place], [place]) Address [address] [place] [address] Care Team Providers Care Incident Response Engineer Name Role Phone Unavailable Primary Care [...]
--- OUTSIDE RECORDS SUMMARY | 2025-07-09 05:32 | XMS_ITS | Encounter Summary ---
Author Organization [employer] ([place], [place], [place], [place]) Address [address] [place] [address] Care Team Providers Care Cmm Inspector Name Role Phone Unavailable Primary Care Provider Unavailabl e Encounter Details Date Type Department Care Team (Late st Contact Info) Description 03/22/2021 Transcribed Document [facility] Family Medicine [address] [place] [address] ProviderLibrado MD [address] [place], [place] [id number] Social History Tobacco Use Types Packs/Day Years Used Date Smoking Tobacco: Never Assessed Comments Unknown Sex and Gender Information Value Date Recorded Sex Assigned at Not on file Legal Sex Female 1:10 PM CDT Gender Identity Not on file Sexual Orientation Not on file documented as of this encounter Miscellaneous Notes * Cerner Conversion Note - Librado ProviderMD - 03/22/2021 12:07 PM CDT TONG [...]
--- OUTSIDE RECORDS SUMMARY | 2025-07-09 05:32 | XMS_ITS | Encounter Summary ---
Author Organization [employer] ([place], [place], [place], [place]) Address [address] [place] [address] Care Team Providers Care Medical Photographer Name Role Phone Unavailable Primary Care Provider Unavailabl e Encounter Details Date Type Department Care Team (Late st Contact Info) Description 03/22/2021 Transcribed Document [facility] Family Medicine [facility] [address] ProviderLibrado MD [address] [place] [address] Social History Tobacco Use Types Packs/Day [...] EDT Performed On: 03/22/2021 11:27 EDT by LASAHE LUGO RN Care Management Progress Note Discharge Arrangements : Patient Post-Acute Information Patient Name: JOIE TAVARES Gender: Female : [birth year] Age: 60 Years Phillip Referral(s): Service: Organization: Business Address: Phone Number: [facility] [address], [place], [address] Discharge Options Discussed with Patient [...] Referral sent via Norberto. patient also choose [facility] for her outpatient PT. DME: [...]
--- OUTSIDE RECORDS SUMMARY | 2025-07-09 05:32 | XMS_ITS | Encounter Summary ---
Author Organization [employer] ([place], [place], [place], [place]) Address [address] [place] [address] Care Team Providers Care Gta Name Role Phone Unavailable Primary Care Provider Unavailabl e Encounter Details Date Type Department Care Team (Late st Contact Info) Description 03/22/2021 Transcribed Document [facility] Family Medicine [facility] [place] [address] ProviderLibrado MD [address] [place] [address] Social History Tobacco Use Types Packs/Day Years Used Date Smoking Tobacco: Never Assessed Comments Unknown Sex and Gender Information Value Date Recorded Sex Assigned at Not on file Legal Sex Female 1:10 PM CDT Gender Identity Not on file Sexual Orientation Not on file documented as of this encounter Miscellaneous Notes * Cerner Conversion Note - Librado ProviderMD - 03/22/2021 1:23 PM CDT Nursing Discharge Summary Entered On: 03/22/2021 13:24 EDT Performed On: 03/22/2021 13:23 EDT by HECTOR BECKWITH RN Discharge Documentation Discharge Date/Time : 03/22/2021 13:07 EDT Transporter Signature : Columba Gold [facility] Unit Coord Patient Disposition, General : Discharge [...]
--- OUTSIDE RECORDS SUMMARY | 2025-07-09 05:32 | XMS_ITS | Encounter Summary ---
Author Organization [employer] ([place], [place], [place], [place]) Address [address] [place] [address] Care Team Providers Care Marketing Traffic Coordinator Name Role Phone Unavailable Primary Care Provider Unavailabl e Encounter Details Date Type Department Care Team (Late st Contact Info) Description 03/22/2021 Transcribed Document [facility] Family Medicine [facility] [place] [address] ProviderLibrado MD [address] [place] [address] Social History Tobacco Use Types [...]
--- OUTSIDE RECORDS SUMMARY | 2025-07-09 05:32 | XMS_ITS | Encounter Summary ---
Author Organization [employer] ([place], [place], [place], [place]) Address [address] [place] [address] Care Team Providers Care Lawn Mower Operator Name Role Phone Unavailable Primary Care Provider Unavailabl e Encounter Details Date Type Department Care Team (Late st Contact Info) Description 03/22/2021 Transcribed Document [facility] Family Medicine [address] [place] [address] ProviderLibrado MD [address] [place] [address] Social History Tobacco Use Types [...] - 03/22/2021 11:38 EDT Electronically signed by Dilia [facility] Conversion Floral Design Teacher Cerner at 03/21/2023 1:05 PM CDT documented in this encounter Plan of Treatment Not on file documented as of this encounter Visit Diagnoses Not on filedocumented in this encounter
--- OUTSIDE RECORDS SUMMARY | 2025-07-09 05:32 | XMS_ITS | Encounter Summary ---
Author Organization [employer] ([place], [place], [place], [place]) Address [address] [place] [address] Care Team Providers Care Cookie Padder Name Role Phone Unavailable Primary Care Provider Unavailabl e Encounter Details Date Type Department Care Team (Late st Contact Info) Description 03/22/2021 Transcribed Document [facility] Family Medicine [facility] [place] [address] ProviderLibrado MD [address] [place] [address] Social History Tobacco Use Types Packs/Day Years Used Date Smoking Tobacco: Never Assessed Comments Unknown Sex and Gender Information Value Date Recorded Sex Assigned at Not on file Legal Sex Female 1:10 PM CDT Gender Identity Not on file Sexual Orientation Not on file documented as of this encounter Miscellaneous Notes * Cerner Conversion Note - Librado Limon MD - 03/22/2021 12:43 PM CDT Patient Education [...] Barley. Bulgur wheat. Millet. Bran muffins. Popcorn. [place] wafer crackers. Vegetables Sweet potatoes. Spinach. Kale. Artichokes. Cabbage. Broccoli. Green peas. Carrots. Squash. Fruits Berries. Pears. Apples. Oranges. Avocados. Prunes and raisins. Dried figs. Meats and Other Protein Sources [place], kidney, romero, and soy beans. Split peas. [...] humza has 11 g of protein. ?? Ocean seeds ??? 1 oz has 5.5 g [...] floor. ?? Place frequently used items in iahu-yi-hqkrv places ?? Keep electrical cables out of [...] ?? Using the bathroom. ?? Using household hris specialist or toxic chemicals. ?? Touching or taking [...] all positive cases are reported through the [facility] health department and the [place] Department for Public Health. Those organizations are [...] and need to call 911, notify the copping machine operator that you have, or think you [...] clean your hands with an alcohol-based hand fuel injection servicer that contains at least 60% alcohol. Clean your hands often. ??? Wash hands: Wash your hands often with soap and water for at least 20 seconds when visibly dirty. This is especially important after blowing your nose, coughing or sneezing, and going to the bathroom, and before eating or preparing food. ??? Hand fuel injection servicer: Use an alcohol-based hand fuel injection servicer with at least 60% alcohol, covering all [...] and water or put them in the rim roller setter. Clean all high-touch surfaces every day. Clean [...] or body fluids on them. ??? Household hris specialist and disinfectants: Clean the area or item [...] list of disinfectants can be found here: https://www.epa.gov/pesticide-registration/gswu-w-vprqgsqchkycl-lti-mhklfgr-kv rs-cov-2 documented in this encounter Plan of Treatment Not on file documented as of this encounter Visit Diagnoses Not on filedocumented in this encounter
--- OUTSIDE RECORDS SUMMARY | 2025-07-09 05:32 | XMS_ITS | Encounter Summary ---
Author Organization [employer] ([place], [place], [place], [place]) Address [address] [place] [address] Care Team Providers Care Euclid Operator Name Role Phone Unavailable Primary Care Provider Unavailabl e Encounter Details Date Type Department Care Team (Late st Contact Info) Description 03/22/2021 Transcribed Document [facility] [place] [facility] [place] [address] ProviderLibrado MD [address] [place] [address] Social History Tobacco Use Types [...] Librado ProviderMD - 03/22/2021 12:43 PM CDT [place] [id number] JOIE HAQ :1960 Visit Time:03/21/2021 Your Visit Summary Your Care Team Admitting Physician - DARY AGMEZ JR, JR, MD-ORT Attending Physician - DARY AGMEZ JR, JR, MD-ORT Primary Care Physician - [...] Instructions From Your Care Team Community Services: [facility] Home Health Services: [facility] Medical Equipment for Home Use: Patient has [...] When 04/03/2021 09:15 AM EDT Where: [address] [facility] [address] [place] [address]- Medications What How Much When Instructions Next Dose aspirin (aspirin 81 mg oral delayed release tablet) 1 Tablet(s) Oral Two Times A Day Duration: 45 Day(s) cefadroxil (cefadroxil 500 mg oral capsule) 1 Capsule(s) Oral Every 12 hours Duration: 6 Day(s) docusate (docusate sodium 100 mg oral tablet) 1 Tablet(s) Oral Two Times A Day as needed for for constipation Pickup at [facility] oxyCODONE (oxyCODONE 5 mg oral [...] as needed for migraine headache Pharmacy Information [facility]: [address] [phone] Take your medications faithfully. Do NOT skip [...] Barley. Bulgur wheat. Millet. Bran muffins. Popcorn. [place] wafer crackers. Vegetables Sweet potatoes. Spinach. Kale. Artichokes. Cabbage. Broccoli. Green peas. Carrots. Squash. Fruits Berries. Pears. Apples. Oranges. Avocados. Prunes and raisins. Dried figs. Meats and Other Protein Sources [place], kidney, romero, and soy beans. Split peas. [...] humza has 11 g of protein. ??? [place] seeds ??? 1 oz has 5.5 g [...] floor. ??? Place frequently used items in ezxu-ki-xslxu places ??? Keep electrical cables out of [...] ??? Using the bathroom. ??? Using household electronic bench technician or toxic chemicals. ??? Touching or taking [...] through the local health department and the [place] Department for Public Health. Those organizations are [...] and need to call 911, notify the core winder machine operator that you have, or think [...] clean your hands with an alcohol-based hand tape stringer that contains at least 60% alcohol. Clean your hands often. ??? Wash hands: Wash your hands often with soap and water for at least 20 seconds when visibly dirty. This is especially important after blowing your nose, coughing or sneezing, and going to the bathroom, and before eating or preparing food. ??? Hand tape stringer: Use an alcohol-based hand tape stringer with at least 60% alcohol, covering all [...] and water or put them in the volunteer assistant. Clean all high-touch surfaces every day. Clean [...] or body fluids on them. ??? Household electronic bench technician and disinfectants: Clean the area or item [...] list of disinfectants can be found here: https://www.epa.gov/pesticide-registration/jvww-h-ngyfhbslehfaa-puo-fwfnnsq-jl rs-cov-2 ondansetron (oral) (on ELAINA se rc) Mariean, Zofran ODT, Janessa What is the most important information I [...] may report side effects to FDA at 0-287-SOW-6913. What other drugs will affect ondansetron? Ondansetron [...] interact with ondansetron. This includes prescription and wizi-vxa-iknziki medicines, vitamins, and herbal products. Give a [...] to ensure that the information provided by [employer]. ('[employer]') is accurate, up-to-date, and complete, but no guarantee is made to that effect. Drug information contained herein may be time sensitive. [facility] information has been compiled for use by healthcare practitioners and consumers in the [place] and therefore [facility] does not warrant that uses outside of the [place] are appropriate, unless specifically indicated otherwise. [employer]'s drug information does not endorse drugs, diagnose patients or recommend therapy. [employer] drug information is an informational resource designed [...] effective or appropriate for any given patient. [facility] does not assume any responsibility for any aspect of healthcare administered with the aid of information [facility] provides. The information contained herein is not intended to cover all possible uses, directions, precautions, warnings, drug interactions, allergic reactions, or adverse effects. If you have questions about the drugs you are taking, check with your doctor, nurse or pharmacist. Copyright 2813-8386 [employer]. Version: 13.01. Revision Date: 09/20/2016. cephalexin (sef [...] may report side effects to FDA at 7-041-ETU-3360. What other drugs will affect cephalexin? Tell your doctor about all your other medicines, especially: ?? metformin; or ?? probenecid. This list is not complete. Other drugs may affect cephalexin, including prescription and epgs-hob-iphjvte medicines, vitamins, and herbal products. Not all [...] to ensure that the information provided by [employer]. ('[employer]') is accurate, up-to-date, and complete, but no guarantee is made to that effect. Drug information contained herein may be time sensitive. [facility] information has been compiled for use by healthcare practitioners and consumers in the [place] and therefore [employer] does not warrant that uses outside of the [place] are appropriate, unless specifically indicated otherwise. [employer] drug information does not endorse drugs, diagnose patients or recommend therapy. [employer] drug information is an informational resource designed [...] effective or appropriate for any given patient. [facility] does not assume any responsibility for any aspect of healthcare administered with the aid of information [facility] [facility] provides. The information contained herein is not intended to cover all possible uses, directions, precautions, warnings, drug interactions, allergic reactions, or adverse effects. If you have questions about the drugs you are taking, check with your doctor, nurse or pharmacist. Copyright 4943-8608 [employer]. Version: 10.. Revision Date: 12/04/2020. acetaminophen (oral) (a SEET a MIN oh fen) Actamin, Anacin AF, Aurophen, Bromo Chandler, Children's Tylenol, Mapap, M-Pap, Pharbetol, Silapap Childrens, [...] is a pain reliever and a fever flight test supervisor. There are many brands and forms of [...] may report side effects to FDA at 2-149-FJT-2200. What other drugs will affect acetaminophen? Other drugs may affect acetaminophen, including prescription and ioqg-khb-xuodmyy medicines, vitamins, and herbal products. Tell your [...] to ensure that the information provided by [employer]. ('[employer]') is accurate, up-to-date, and complete, but no guarantee is made to that effect. Drug information contained herein may be time sensitive. [facility] information has been compiled for use by healthcare practitioners and consumers in the [place] and therefore [facility] does not warrant that uses outside of the [place] are appropriate, unless specifically indicated otherwise. [facility]'s drug information does not endorse drugs, diagnose patients or recommend therapy. [employer] drug information is an informational resource designed [...] effective or appropriate for any given patient. [facility] [facility] does not assume any responsibility for any aspect of healthcare administered with the aid of information [facility] provides. The information contained herein is not intended to cover all possible uses, directions, precautions, warnings, drug interactions, allergic reactions, or adverse effects. If you have questions about the drugs you are taking, check with your doctor, nurse or pharmacist. Copyright 4903-9892 [employer]. Version: 21.04. Revision Date: 07/07/2020. meloxicam (oral/injection) [...] may report side effects to FDA at 9-358-QWN-8587. What other drugs will affect meloxicam? Ask [...] drugs may affect meloxicam, including prescription and sztl-mgz-pyvrory medicines, vitamins, and herbal products. Not all [...] to ensure that the information provided by [employer]. ('[employer]') is accurate, up-to-date, and complete, but no guarantee is made to that effect. Drug information contained herein may be time sensitive. [facility] information has been compiled for use by healthcare practitioners and consumers in the [place] and therefore [facility] does not warrant that uses outside of the [place] are appropriate, unless specifically indicated otherwise. [employer] drug information does not endorse drugs, diagnose patients or recommend therapy. [employer] drug information is an informational resource designed [...] effective or appropriate for any given patient. [facility] does not assume any responsibility for any aspect of healthcare administered with the aid of information [facility] provides. The information contained herein is not intended to cover all possible uses, directions, precautions, warnings, drug interactions, allergic reactions, or adverse effects. If you have questions about the drugs you are taking, check with your doctor, nurse or pharmacist. Copyright 2862-8165 [employer]. Version: 14.. Revision Date: 10/03/2020. docusate (oral/rectal) [...]
--- OUTSIDE RECORDS SUMMARY | 2025-07-09 05:32 | XMS_ITS | Encounter Summary ---
Author Organization [employer] ([place], [place], [place], [place]) Address [address] [place] [address] Care Team Providers Care Commercial Horticulture Instructor Name Role Phone Unavailable Primary Care Provider Unavailabl e Encounter Details Date Type Department Care Team (Late st Contact Info) Description 03/08/2021 Transcribed Document [facility] Family Medicine [facility] [place] [address] ProviderLibrado MD [address] [place] [address] Social History Tobacco Use Types Packs/Day [...] Appearance CLEAR2 03/08/2021 09:44 EDT Urine Specific [place] 1.012 03/08/2021 09:44 EDT Urine pH Dipstick [...] Plt- 263 Urine culture shows contamination only. Electronically signed by Kristina Dobbs Conversion Airplane And Engine Inspector Cerner at 03/21/2023 1:07 PM CDT documented in this encounter Plan of Treatment Not on file documented as of this encounter Visit Diagnoses Not on filedocumented in this encounter
--- OUTSIDE RECORDS SUMMARY | 2025-07-09 05:32 | XMS_ITS | Encounter Summary ---
Author Organization [employer] ([place], [place], [place], [place]) Address [address] [place] [address] Care Team Providers Care Speed Belt Sander Name Role Phone Unavailable Primary Care Provider Unavailabl e Encounter Details Date Type Department Care Team (Late st Contact Info) Description 03/21/2021 Transcribed Document [facility] [place] [facility] [place] [address] ProviderLibrado MD [address] [place] [address] Social History Tobacco Use Types Packs/Day Years Used Date Smoking Tobacco: Never Assessed Comments Unknown Sex and Gender Information Value Date Recorded Sex Assigned at Not on file Legal Sex Female 1:10 PM CDT Gender Identity Not on file Sexual Orientation Not on file documented as of this encounter Miscellaneous Notes * Cerner Conversion Note - Librado ProviderMD - 03/21/2021 4:38 AM CDT Admission [...] : Sandip Tavares Emergency Contact #1 or [phone] Emergency Contact #1 Relationship : Spouse Emergency Contact #2 : . Emergency Contact #2 Phone Number : . Emergency Contact #2 Relationship : . Information Obtained From : Patient Primary Language : Belarusian Preferred Communication Mode : Verbal Communication Barrier : None Train Gate Attendant Needed : No Currently Lactating : No [...] Level : 46 or > High Risk [place] Fall Interventions : Adequate lighting, Assistive devices [...] (Last Updated: 07/06/2018 10:27:50 EDT by Irma Holloway, MAGALYS) Alcohol: Alcohol Use History Yes. 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 (Last Updated: 07/06/2018 10:28:40 EDT by Irma Holloway RN) Height and Weight, Clinical Dosing Height Source : Measured Height Entry Format : [place] Height, Feet : 5 ft(Converted to: 152 cm, 60 Inch) Height, Inches : 7 Inch(Converted to: 0 ft 7 Inch, 17.78 cm) Clinical Height : 170.18 cm Weight Source : Standing scale Weight Entry Format : [place] Clinical Dosing Weight : 93.18 kg Weight, Pounds : 205 lb Body Surface Area (BSA) : 2.05 m2 Body Mass Index : 32.2 kg/m2 (HI) [place] Body Weight : 61 kg Beatrice Torres [...] Details Patient Needs Meds Crushed/Liquid : No Baetrice Torres RN - 03/21/2021 10:42 EDT Nutrition History Eating Poorly Due to Decreased Appetite : No Unplanned Weight Loss in Past 3-6 Months : No Malnutrition Screening Tool Total(mal) : 0 Malnutrition Screening Tool Risk Level : Patient not at risk Beatrice Torres RN - 03/21/2021 10:42 EDT [place] Suicide Severity Rating Scale (C-SSRS) CSSRS Past [...]
--- OUTSIDE RECORDS SUMMARY | 2025-07-09 05:32 | XMS_ITS | Encounter Summary ---
Author Organization [employer] ([place], [place], [place], [place]) Address [address] [place] [address] Care Team Providers Care Structural Test Engineer Name Role Phone Unavailable Primary Care Provider Unavailabl e Encounter Details Date Type Department Care Team (Late st Contact Info) Description 03/21/2021 Transcribed Document [facility] Family Medicine [facility] [place] [address] ProviderLibrado MD [address] [place] [address] Social History Tobacco Use Types Packs/Day [...] Summary Primary Physician: DARY GAMEZ JR, JR, MD-TOMAST Finalized Date/Time: 03/21/21 09:40:08 Pt. Name: JOIE TAVARES/Sex: 1960 Female Med Rec #: [id number] Physician: DARY GAMEZ JR, JR, MD-ORT Financial #: [id number] Pt. Type: O Room/Bed: EAS/1 Admit/Disch: 03/21/21 04:39:00 - Institution: [facility] PreOp Case Times Entry 1 In Preop 03/21/21 05:20:00 Ready for Holding n/a Room Patient Ready for 03/21/21 06:35:00 Surgery Patient Out of Preop 03/21/21 07:26:00 Patient Out of n/a Holding Room Last Modified By: OMI SELBY 03/21/21 09:40:02 SJE PreOp Case Times Audit 03/21/21 09:40:02 Hot Mill Operator: EDWARD Modifier: CATLETDD <+> 1 Patient Out of Preop Finalized By: OMI SELBY Document Signatures Signed By: OMI SELBY 03/21/21 09:40 Electronically signed by Dilia [facility] Conversion Pulp Press Tender Cerner at 03/21/2023 12:55 PM CDT documented in this encounter Plan of Treatment Not on file documented as of this encounter Visit Diagnoses Not on filedocumented in this encounter
--- OUTSIDE RECORDS SUMMARY | 2025-07-09 05:32 | XMS_ITS | Encounter Summary ---
Author Organization [employer] ([place], [place], [place], [place]) Address [address] [place] [address] Care Team Providers Care Dovetail Machine Operator Name Role Phone Unavailable Primary Care Provider Unavailabl e Encounter Details Date Type Department Care Team (Late st Contact Info) Description 03/08/2021 Transcribed Document [facility] Family Medicine [facility] [place] [address] ProviderLibrado MD [address] [place] [address] Social History Tobacco Use Types Packs/Day [...] Source : Measured Height Entry Format : [place] Height, Feet : 5 ft(Converted to: 152 cm, 60 Inch) Height, Inches : 7 Inch(Converted to: 0 ft 7 Inch, 17.78 cm) Clinical Height : 170.18 cm Weight Source : Standing scale Weight Entry Format : [place] Clinical Dosing Weight : 95 kg Weight, Pounds : 209 lb Body Surface Area (BSA) : 2.06 m2 Body Mass Index : 32.8 kg/m2 (HI) [place] Body Weight : 61 kg Deisy Collins [...] Deisy Collins RN - 03/08/2021 9:34 EDT [place] Suicide Severity Rating Scale (C-SSRS) CSSRS Past [...] : Sandip Tavares Emergency Contact #1 or [phone] Emergency Contact #1 Relationship : Spouse Emergency Contact #2 : . Emergency Contact #2 Phone Number : . Emergency Contact #2 Relationship : . Primary Language : Maldivian Preferred Communication Mode : Verbal Communication Barrier : None School Bus Technician Needed : No Deisy Collins RN - [...]
--- OUTSIDE RECORDS SUMMARY | 2025-07-09 05:32 | XMS_ITS | Encounter Summary ---
Author Organization [employer] ([place], [place], [place], [place]) Address [address] [place] [address] Care Team Providers Care Supervisor Core Drilling Name Role Phone Unavailable Primary Care Provider Unavailabl e Encounter Details Date Type Department Care Team (Late st Contact Info) Description 03/21/2021 Transcribed Document [facility] [place] Medicine [facility] [place] [address] ProviderLibrado MD [address] [place] [address] Social History Tobacco Use Types Packs/Day Years Used Date Smoking Tobacco: Never Assessed Comments Unknown Sex and Gender Information Value Date Recorded Sex Assigned at Not on file Legal Sex Female 1:10 PM CDT Gender Identity Not on file Sexual Orientation Not on file documented as of this encounter Miscellaneous Notes * Cerner Conversion Note - Librado ProviderMD - 03/21/2021 12:11 PM CDT Treatment Intervention, PT Entered On: 03/22/2021 10:14 EDT Performed On: 03/22/2021 9:27 EDT by PABLO ABDALLA, BLACKSMITH SUPERVISOR General Information, PT Visit Type, PT : [...] Assistive Device : Verbalizes understanding, Returns demonstration APBLO ABDALLA PTA - 03/22/2021 10:05 EDT Plan of Care, PT PT Tx Plan/Goals Established w Patient : Yes PABLO ABDALLA PTA - 03/22/2021 10:05 EDT [facility] Goals Other PT LTG Grid Goal #1 [...] EDT 03/22/2021 EDT 03/22/2021 EDT PABLO ABDALLA, BLACKSMITH SUPERVISOR - 03/22/2021 10:05 EDT RM PABLO Frederick, BLACKSMITH SUPERVISOR - 03/22/2021 10:05 EDT RM PABLO Frederick, BLACKSMITH SUPERVISOR - 03/22/2021 10:05 EDT Treatment Note Subjective [...] for Treatment : Anticipated d/c home from [facility] today. PABLO ABDALLA, BERNARDO - 03/22/2021 10:05 EDT Pain Assessment Pain Scaled Used : 0-10 Pain scale Pain Score Pre-Intervention : 0 PABLO ABDALLA, BERNARDO - 03/22/2021 10:05 EDT Image 1 - Images currently included in the form version of this document have not been included in the text rendition version of the form. [place] PT Charges BLACKSMITH SUPERVISOR PT Therap. Exercise 15 min-BLACKSMITH SUPERVISOR : 1 Gait Training Each 15 Min-BLACKSMITH SUPERVISOR : 1 PABLO ABDALLA, BLACKSMITH SUPERVISOR - 03/22/2021 10:05 EDT documented in this encounter Plan of Treatment Not on file documented as of this encounter Visit Diagnoses Not on filedocumented in this encounter
--- OUTSIDE RECORDS SUMMARY | 2025-07-09 05:32 | XMS_ITS | Encounter Summary ---
Author Organization [employer] ([place], [place], [place], [place]) Address [address] [place] [address] Care Team Providers Care Bindery Assistant Name Role Phone Unavailable Primary Care Provider Unavailabl e Encounter Details Date Type Department Care Team (Late st Contact Info) Description 03/21/2021 Transcribed Document [facility] [place] Family Medicine [facility] [place] [address] ProviderLibrado MD [address] [place] [address] Social History Tobacco Use Types Packs/Day [...] JOIE TAVARES/Sex: 1960 Female Med Rec #: [id number] Physician: DARY GAMEZ JR, JR, MD-ORT Financial #: [id number] Pt. Type: O Room/Bed: EAS/1 Admit/Disch: 03/21/21 04:39:00 - Institution: [facility] IntraOp Case Attendance Entry 1 Entry 2 Entry 3 Case Attendee DARY GAMEZ JR, JR, WHITAKER, CARLY, Davis, Stephen J, RNFA MD-ORT BIRD RAISER-ANS Role Performed Surgeon/Proceduralist, BIRD RAISER/Nurse Healthcare Business Analyst ANILA First Time In 03/21/21 07:28:00 03/21/21 07:28:00 [...] 6 Case Attendee TIEN CLAY ST French, Daryl, REP-SNA OTHER, ATTENDEE #1 Role Performed Scrub, First Scrub, Second Cell Saver Machine Hoop Maker Helper Time In 03/21/21 07:28:00 03/21/21 07:28:00 03/21/21 [...] OTHER, ATTENDEE #2 Sarah Biggs LONGSWORTH, GARY, MGAALYS Maintenance Coordinator Role Performed Vendor Multi Share Program Coordinator Community Midwife, First Time In 03/21/21 07:28:00 03/21/21 07:35:00 03/21/21 07:28:00 Time Out 03/21/21 09:15:00 03/21/21 09:15:00 03/21/21 09:04:00 Procedure Hip Total Anterior Hip Total Anterior Hip Total Anterior Approach(Right) Approach(Right) Approach(Right) Other Attendee SAUNDRA NOONAN Superficial Wound Closed By: Last Modified By: KAMERON CORREA RN LONGSWORTH, GARY, RN LONGSWORTH, GARY, MAGALYS 03/21/21 07:43:00 03/21/21 09:14:09 03/21/21 09:09:17 Entry 10 Case Attendee FAITH ESCOBEDO RN Role Performed Community Midwife, Second Time In 03/21/21 09:04:00 Time Out 03/21/21 09:15:00 Procedure Hip Total Anterior Approach(Right) Other Attendee Superficial Wound Closed By: Last Modified By: KAMERON CORREA RN 03/21/21 09:14:09 [facility] IntraOp Case Attendance Audit 03/21/21 09:14:09 Expenditure Requisition Clerk: LONGGA Modifier: LONGGA 1 <+> Time Out [...] Procedure Hip Total Anterior Approach(Right) 03/21/21 09:09:17 Expenditure Requisition Clerk: LONGGA Modifier: LONGGA 9 <+> Time Out 9 <*> Procedure Hip Total Anterior Approach(Right) <+> 10 Case Attendee <+> 10 Role Performed <+> 10 Time In <+> 10 Procedure 03/21/21 07:55:56 Expenditure Requisition Clerk: LONGGA Modifier: LONGGA <+> 9 Case Attendee <+> 9 Role Performed <+> 9 Time In <+> 9 Procedure 03/21/21 07:53:41 Expenditure Requisition Clerk: LONGGA Modifier: LONGGA 6 <*> Time In 03/21/21 07:28:00 6 <*> Procedure Hip Total Anterior Approach(Right) 03/21/21 07:53:18 Expenditure Requisition Clerk: LONGGA Modifier: LONGGA <+> 1 Procedure 2 <*> Procedure Hip Total Anterior Approach(Right) 3 <*> Procedure Hip Total Anterior Approach(Right) 4 <*> Procedure Hip Total Anterior Approach(Right) 5 <*> Procedure Hip Total Anterior Approach(Right) 6 <+> Time In 6 <*> Procedure Hip Total Anterior Approach(Right) 7 <*> Procedure Hip Total Anterior Approach(Right) 8 <*> Procedure Hip Total Anterior Approach(Right) 03/21/21 07:43:00 Expenditure Requisition Clerk: LONGGA Modifier: LONGGA <+> 1 Time In [...] [facility] IntraOp Case Times Audit 03/21/21 09:14:07 Expenditure Requisition Clerk: LONGGA Modifier: LONGGA <+> 1 Out Room Time <+> 1 Stop Time 03/21/21 09:13:29 Expenditure Requisition Clerk: LONGGA Modifier: LONGGA <+> 1 Stop Time 03/21/21 07:53:13 Expenditure Requisition Clerk: LONGGA Modifier: LONGGA <+> 1 Start Time [...] Transport SIS SHAH, Accompanied by SUNNY WAGGONER GARY, RN Last Modified By: KAMERON CORREA RN 03/21/21 08:59:05 [facility] IntraOp Dressing and Packing Entry 1 Type Dressing Location RIGHT HIP Tape Type Paper Applied By Mati Fuentes RNFA Other Comments LIZBETH, MEPILEX DRESSING Last Modified By: KAMERON CORREA RN 03/21/21 08:58:36 [facility] IntraOp Dressing and Packing Audit 03/21/21 08:58:36 Expenditure Requisition Clerk: MARY Modifier: GIRISHGA 1 <-> Wound Dressing Item Occlusive dressing 1 <*> Other Comments PRINMaddiO [facility] IntraOp Fire Risk Assessment Entry 1 Fire [...] IntraOp Fire Risk Assessment Audit 03/21/21 08:09:15 Expenditure Requisition Clerk: MARY Modifier: LONGGA <+> 1 Fire Risk Assessment Verified By <+> 1 Fire Risk Assessment Verified Date/Time <+> 1 High Risk Protocol Implemented [facility] IntraOp General Case Journeyman Powerhouse Operator 1 Case Information OR OR 05 [facility] Case Level 1 Room Verified Yes Wound [...] D HIP STEM ACCOLADE II Identification 48MM [id number] Description Implant Quantity 1 1 1 Implant Site RIGHT HIP RIGHT HIP RIGHT HIP Implant Identification Model Number Implant Identification Serial Number Implant [id number] Identification Lot Number Implant [place] Ortho Cap Nikita:Nikita Carolina:Nikita Identification Orthopaedics Orthopaedics Blockmason Name: Implant [id number] Identification Catalog Number Implant Size Implant Has an Yes Yes Yes Expiration Date Implant Expiration 10/18/25 11/02/25 12/23/25 Date Wasted Radioactive Material Time Implanted Tissue Implant Continue for Tissue Implant Documentation Tissue Identification Number Graft Prep Per Blockmason Instructions: Tissue Preparation Method: Reconstitution Solution: Reconstitution Solution Lot Number Reconstitution Solution Expiration Date: Thawing Solution Thawing Solution Lot Number Thawing Solution Expiration Date Preparation Materials, Other Preparation Materials, Other Lot Number Preparation Materials, Other Expiration Date Tissue Prepared/Processed By Blockmason Paperwork Completed Implant Type Comment Last Modified By: KAMERON CORREA RN LONGSWORTH, GARY, RN LONGSWORTH, GARY, RN 03/21/21 08:19:39 03/21/21 08:20:33 03/21/21 08:43:38 Entry 4 Type Implant (Synthetic) Implant Log Implant Type Hardware Tissue Implant Type Implant HEAD FEM BIOLOX V40 Identification [id number] Description Implant Quantity 1 Implant Site RIGHT HIP Implant Identification Model Number Implant Identification Serial Number Implant [id number] Identification Lot Number Implant Nikita:Nikita Identification Orthopaedics Blockmason Name: Implant [id number] Identification Catalog Number Implant Size Implant Has an Yes Expiration Date Implant Expiration 09/27/25 Date Wasted Radioactive Material Time Implanted Tissue Implant Continue for Tissue Implant Documentation Tissue Identification Number Graft Prep Per Blockmason Instructions: Tissue Preparation Method: Reconstitution Solution: Reconstitution Solution Lot Number Reconstitution Solution Expiration Date: Thawing Solution Thawing Solution Lot Number Thawing Solution Expiration Date Preparation Materials, Other Preparation Materials, Other Lot Number Preparation Materials, Other Expiration Date Tissue Prepared/Processed By Blockmason Paperwork Completed Implant Type Comment Last Modified By: KAMERON CORREA RN 03/21/21 08:47:34 [facility] IntraOp Implant Log Audit 03/21/21 08:47:34 Expenditure Requisition Clerk: MARY Modifier: MARY <+> 4 Implant Identification Description <+> 4 Implant Identification Lot Number <+> 4 Implant Identification Blockmason Name: <+> 4 Implant Expiration Date <+> 4 Implant Site <+> 4 Implant Quantity <+> 4 Implant Identification Catalog Number <+> 4 Implant Type <+> 4 Implant Has an Expiration Date <+> 4 Type 03/21/21 08:43:38 Expenditure Requisition Clerk: MARY Modifier: LONGGA <+> 3 Implant Identification Description <+> 3 Implant Identification Lot Number <+> 3 Implant Identification Blockmason Name: <+> 3 Implant Expiration Date <+> 3 Implant Site <+> 3 Implant Quantity <+> 3 Implant Identification Catalog Number <+> 3 Implant Type <+> 3 Implant Has an Expiration Date <+> 3 Type 03/21/21 08:20:33 Expenditure Requisition Clerk: LONGGA Modifier: LONGGA <+> 2 Implant Identification Description <+> 2 Implant Identification Lot Number <+> 2 Implant Identification Blockmason Name: <+> 2 Implant Expiration Date <+> [...] 1000units/ml SEALR AQUAMANTYS BIPLR CLONIDINE-10ML 10ml - [id number] Combo Med List 1 - Combo Med Time Administered Route of CELLSAVER HEAD MEN'S GOLF COACH INJECTION, RIGHT HIP Administration Dose Dose 97771 0.8 Unit of Measure units ml Volume [...] 0.5% 30ml vial Xylocaine 1% w/ - [id number] epinephrine 1:200,000 30ml vial - [id number] Combo Med List 1 - Combo Med 1 - Combo Med 1 - Combo Med Time Administered Route of INJECTION, RIGHT HIP INJECTION, RIGHT HIP INJECTION, RIGHT HIP Administration Dose Dose 1 25 23.2 Unit of Measure ml ml ml Volume Administered By DARY GAMEZ JR, JR, HUFF JR, WALLACE JR, HUFF JR, WALLACE JR, MD-ORT MD-ORT MD-ORT Procedure Irrigation Irrigant Volume In Irrigant Volume [...] Yes Checked Positioning Devices Arm Board, Table, [place], Safety Strap, Chest Device Position HANA TABLE; PERINEAL POST Positioned By SIS SHAH CRNA-ANS, DARY GAMEZ JR, JR, MD-ORT, KAMERON CORREA, MAGALYS, Mati Fuentes, SUPERVISOR BRINE Position Verified Positioning Yes Verified by Anesthesia [...] Reviewed with Anesthesia Provider, Surgeon and RN [place] Patient Yes Management Concerns Reviewed with Anesthesia [...] [facility] IntraOp Skin Prep Audit 03/21/21 10:21:05 Expenditure Requisition Clerk: MARY Modifier: LONGGA 1 <*> Prep Agents [...] S[facility] IntraOp Surgical Procedures Audit 03/21/21 09:13:33 Expenditure Requisition Clerk: LONGGA Modifier: LONGGA <+> 1 Stop [facility] IntraOp Temp Regulation Devices Entry 1 Temp Regulation Temperature Conductive warming Regulation Device device placed over patient Temperature 4764 Regulation Device Serial/Unit Number Temperature Upper body Regulation Site Temperature Device 43 Setting Temperature SIS SHAH, Regulation Device BIRD RAISER-ANS Applied by Last Modified By: KAMERON CORREA [...] Progress Within the Last 60 Minutes Beta Connor Yes Administered Venous N/A Thromboembolism Prophylaxis Required Anticipated Critical Events Surgeon None expected Anesthesia Provider Patient specific concerns Nursing Assures Sterility of instruments, Equipment concerns or issues, Implant Availability Essential Imaging Yes Labeled and Displayed Last Modified By: KAMERON CORREA RN 03/21/21 07:57:13 [facility] IntraOp X-Ray and Images Entry 1 X-Ray/Imaging Type Fluoroscopy Fluoroscopy Type C-Arm Site RIGHT HIP Systems Developer Name Sarah Biggs, Maintenance Coordinator Protective Devices Yes Used Last Modified By: KAMERON CORREA RN 03/21/21 07:56:34 Case Comments <None> Finalized By: KAMERON CORREA, RN Document Signatures Signed By: KAMERON CORREA RN 03/21/21 09:14 KAMERON CORREA RN 03/21/21 10:21 Unfinalized History Date/Time Username Reason for Unfinalizing Freetext Reason for Unfinalizing 03/21/21 10:20 LONGSEEMA Correct Documentation documented in this encounter Plan of Treatment Not on file documented as of this encounter Visit Diagnoses Not on filedocumented in this encounter
--- OUTSIDE RECORDS SUMMARY | 2025-07-09 05:32 | XMS_ITS | Encounter Summary ---
Author Organization [employer] ([place], [place], [place], [place]) Address [address] [place] [address] Care Team Providers Care Deodorizer Operator Name Role Phone Unavailable Primary Care Provider Unavailabl e Encounter Details Date Type Department Care Team (Late st Contact Info) Description 03/21/[address] [facility] [place] Family Medicine [facility] [place] [address] ProviderLibrado MD [address] [place] [address] Social History Tobacco Use Types Packs/Day Years Used Date Smoking Tobacco: Never Assessed Comments Unknown Sex and Gender Information Value Date Recorded Sex Assigned at Not on file Legal Sex Female 1:10 PM CDT Gender Identity Not on file Sexual Orientation Not on file documented as of this encounter Miscellaneous Notes * Cerner Conversion Note - Librado Limon MD - 03/21/2021 10:23 PM CDT Patient: JOIE [...] Oral, Q4H phenol 1.4% throat spray 5 [place], Oral, Q2H promethazine 25 mg tab 12.5 [...] HTN, heart disease Procedure history: tubal. Appendectomy; (35287). trigger finger. arthroscopy both knees. left total knee with Titanium. right CTR. cysto lithotripsy. several hammertoe/bunion surgeries. right wrist joint fusion. facet injects and rhizotomy. heart cath and lexiscan stress test 2010. retina; vein injections monthly. RTKA with Titanium. Colonoscopy (945767619). Cystoscopy (40785098). Bilateral Cataract Removal with IOL Implants. Lithotripsy (317762660). Social History Patient is and has no children, she quit TrenDemon on 01/10/1993.Denies drinking alcohol. Physical Examination VS/Measurements [...] swelling, No deformity, Normal gait. Integumentary: Warm, [place], Intact, No pallor, No rash, WOUND STABLE. [...] then you may give Tylenol 650 mg PO/VA x 1. If no response in 2 [...]
--- OUTSIDE RECORDS SUMMARY | 2025-07-09 05:32 | XMS_ITS | Encounter Summary ---
Author Organization [employer] ([place], [place], [place], [place]) Address [address] [place] [address] Care Team Providers Care Cover Mat Machine Operator Name Role Phone Unavailable Primary Care Provider Unavailabl e Encounter Details Date Type Department Care Team (Late st Contact Info) Description 01/25/2021 Transcribed Document [facility] [place] Family Medicine [facility] [place] [address] ProviderLibrado MD [address] [place] [address] Social History Tobacco Use Types Packs/Day Years Used Date Smoking Tobacco: Never Assessed Comments Unknown Sex and Gender Information Value Date Recorded Sex Assigned at Not on file Legal Sex Female 1:10 PM CDT Gender Identity Not on file Sexual Orientation Not on file documented as of this encounter Miscellaneous Notes * Cerner Conversion Note - Librado ProviderMD - 01/25/2021 11:29 AM ACCOUNT RECEIVABLE CLERK PAT Adult Entered On: 01/25/2021 11:35 EST [...] Source : Measured Height Entry Format : [place] Height, Feet : 5 ft(Converted to: 152 cm, 60 Inch) Height, Inches : 7 Inch(Converted to: 0 ft 7 Inch, 17.78 cm) Clinical Height : 170.18 cm Weight Source : Standing scale Weight Entry Format : [place] Clinical [facility] Weight : 99.09 kg Weight, Pounds : 218 lb Body Surface Area (BSA) : 2.1 m2 Body Mass Index : 34.2 kg/m2 (HI) [place] Body Weight : 61 kg Deisy Collins [...] Deisy Collins RN - 01/25/2021 11:29 EST [place] Suicide Severity Rating Scale (C-SSRS) CSSRS Past [...] : Sandip Tavares Emergency Contact #1 or [phone] Emergency Contact #1 Relationship : Spouse Emergency Contact #2 : . Emergency Contact #2 Phone Number : . Emergency Contact #2 Relationship : . Primary Language : Citizen Of [place] Preferred Communication Mode : Verbal Communication Barrier : None Computer Lab Aide Needed : No Deisy Collins RN - [...]
--- OUTSIDE RECORDS SUMMARY | 2025-07-09 05:32 | XMS_ITS | Encounter Summary ---
Author Organization [employer] ([place], [place], [place], [place]) Address [address] [place] [address] Care Team Providers Care Health It Specialist Name Role Phone Unavailable Primary Care Provider Unavailabl e Encounter Details Date Type Department Care Team (Late st Contact Info) Description 03/21/2021 Transcribed Document [facility] [place] Family Medicine [facility] [place] [address] ProviderLibrado MD [address] [place] [address] Social History Tobacco Use Types Packs/Day Years Used Date Smoking Tobacco: Never Assessed Comments Unknown Sex and Gender Information Value Date Recorded Sex Assigned at Not on file Legal Sex Female 1:10 PM CDT Gender Identity Not on file Sexual Orientation Not on file documented as of this encounter Miscellaneous Notes * Cerner Conversion Note - Librado ProviderMD - 03/21/2021 10:39 AM CDT Evaluation, [...] BARBARA NOYOLA, PT - 03/21/2021 12:00 EDT Longterm Goals Other PT LTG Grid Goal #1 [...]
--- OUTSIDE RECORDS SUMMARY | 2025-07-09 05:32 | XMS_ITS | Encounter Summary ---
Author Organization [email or web address] ([place], [place], [place], [place]) Address [address] [place] [address] Care Team Providers Care Warp Hanger Name Role Phone Unavailable Primary Care Provider Unavailabl e Encounter Details Date Type Department Care Team (Late st Contact Info) Description 03/21/2021 Transcribed Document [facility] Family Medicine [facility] [place] [address] ProviderLibrado MD [address] [place] [address] Social History Tobacco Use Types Packs/Day [...] the recovery room. Final condition was improved. /[id number] MD SIMIN Infante Jr/SHOBHA / SIMIN / MODL /[id number] documented in this encounter Plan of Treatment Not on file documented as of this encounter Visit Diagnoses Not on filedocumented in this encounter
--- OUTSIDE RECORDS SUMMARY | 2025-07-09 05:32 | XMS_ITS | Encounter Summary ---
Author Organization [employer] ([place], [place], [place], [place]) Address [address] [place] [address] Care Team Providers Care Nurse'S Companion Name Role Phone Unavailable Primary Care Provider Unavailabl e Encounter Details Date Type Department Care Team (Late st Contact Info) Description 03/21/2021 Transcribed Document [facility] [place] Family Medicine [facility] [place] [address] ProviderLibrado MD [address] [place] [address] Social History Tobacco Use Types Packs/Day [...] Source : Measured Height Entry Format : [place] Height, Feet : 5 ft(Converted to: 152 cm, 60 Inch) Height, Inches : 7 Inch(Converted to: 0 ft 7 Inch, 17.78 cm) Clinical Height : 170.18 cm Weight Source : Standing scale Weight Entry Format : [place] Clinical Dosing Weight : 93.18 kg Weight, Pounds : 205 lb Body Surface Area (BSA) : 2.05 m2 Body Mass Index : 32.2 kg/m2 (HI) [place] Body Weight : 61 kg BILLY ALFARO [...] BILLY ALFARO RN - 03/21/2021 6:36 EDT [place] Suicide Severity Rating Scale (C-SSRS) CSSRS Past [...] : Sandip Tavares Emergency Contact #1 or [phone] Emergency Contact #1 Relationship : Spouse Emergency Contact #2 : . Emergency Contact #2 Phone Number : . Emergency Contact #2 Relationship : . Information Obtained From : Patient Primary Language : [place] Preferred Communication Mode : Verbal Communication Barrier : None Barrel Filler Needed : No Currently Lactating : No [...] the text rendition version of the form. documented in this encounter Plan of Treatment Not on file documented as of this encounter Visit Diagnoses Not on filedocumented in this encounter
--- OUTSIDE RECORDS SUMMARY | 2025-07-09 05:32 | XMS_ITS | Encounter Summary ---
Author Organization [employer] ([place], [place], [place], [place]) Address [address] [place] [address] Care Team Providers Care Unit Support Representative Name Role Phone Unavailable Primary Care Provider Unavailabl e Encounter Details Date Type Department Care Team (Late st Contact Info) Description 03/22/2021 Transcribed Document [facility] [place] Family Medicine [facility] [place] [address] ProviderLibrado MD [address] [place] [address] Social History Tobacco Use Types [...] Policy Numbers : Insurance 1 Health Plan: [employer] Policy Number: [id number] Authorization Number: [id number] Insurance Primary Name : [facility] Policy Number: [id number] Authorization Status-Primary : Opo status approv Authorized Service Begin Date-Primary : 03/21/2021 EDT Observation Authorization Nbr-Primary : [id number] Authorization Comments-Primary : [facility] auth approved for outpt per Star note Historical Authorization Comments-Primary : No Authorization Comments Found CONRAD COWAN RN-Utilization Review - 03/22/2021 8:25 EDT documented in this encounter Plan of Treatment Not on file documented as of this encounter Visit Diagnoses Not on filedocumented in this encounter
--- OUTSIDE RECORDS SUMMARY | 2025-07-09 05:32 | XMS_ITS | Encounter Summary ---
Author Organization [employer] ([place], [place], [place], [place]) Address [address] [place] [address] Care Team Providers Care Solderer Furnace Name Role Phone Unavailable Primary Care Provider Unavailabl e Encounter Details Date Type Department Care Team (Late st Contact Info) Description 03/22/2021 Transcribed Document [facility] [place] Family Medicine [facility] [place] [address] ProviderLibrado MD [address] [place] [address] Social History Tobacco Use Types [...] tyllenol 3 headache Thank you, Lida EugeneD documented in this encounter Plan of Treatment Not on file documented as of this encounter Visit Diagnoses Not on filedocumented in this encounter
--- OUTSIDE RECORDS SUMMARY | 2025-07-09 05:32 | XMS_ITS | Clinical Summary ---
Author Organization [facility] Address [address] [place] [address] Phone Care Team Providers Care Head Butler Name Role Phone Marcio STILES, Brian Kate [ ] Conditions or Problems Problem Name Problem Code Onset Date Status Entry Date Provider Comment Standard Description Annotate Eschar 224733689 (SNOMED CT) Active Brian Buckley MD Skin eschar Hematoma of arm 289574091 (SNOMED CT) Active Brian Buckley MD Hematoma Other obesity due to excess calories 997386866 (SNOMED CT) Active Yasmin Minor Simple obesity Gram negative infection 159949946 (SNOMED CT) Active Brian Buckley MD 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-negative bacteria Wound infection 04366173 (SNOMED CT) Active Brian Buckley MD Local infection of wound Knee, right, initial encounter(s) , 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 T84.53xA (ICD-10-CM) Active Clare Hemal Infection and 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 prosthesis, initial encounter Effusion, right knee M25.461 (ICD-10-CM) Active Clare Hemal Effusion, right knee Cellulitis of RLE 062846005 (SNOMED CT) Active Clare Hemal Cellulitis of lower limb Medications Medication Instructions Start Date Stop Date Generic Name NDC Provider BACTRIM DS 800-160 MG TABS Take 1 tablet by mouth twice a day 5 sulfamethoxazo le-trimethopri m [id number] Brian Buckley MD CLINDAMYCIN HCL 150 MG CAPS by mouth clindamycin hcl 62345335871 Lois Suarez DIFLUCAN 150 MG TABS by mouth fluconazole 01586727181 Lois Suarez ALLOPURINOL 100 MG TABS by mouth once a day allopurinol 84279409801 Yasmin Minor CEFADROXIL 500 MG CAPS by mouth three times a day cefadroxil 67739553718 Yasmin Minor CLINDAMYCIN HCL 150 MG CAPS by mouth clindamycin hcl 84068149809 Yasmin Minor DICYCLOMINE HCL 20 MG TABS by mouth dicyclomine 81252474432 Yasmin Minor DIFLUCAN 150 MG TABS by mouth fluconazole 38859991470 Yasmin Minor DOXYCYCLINE HYCLATE 100 MG CAPS by mouth twice a day doxycycline hyclate 40295702354 Yasmin Minor FUROSEMIDE 40 MG TABS by mouth once a day furosemide 05567025534 Yasmin Minor LORATADINE 10 MG TABS by mouth once a day loratadine 09883635835 Yasmin Minor LOSARTAN POTASSIUM 25 MG TABS by mouth once a day losartan 70818779995 Yasmin Minor MELOXICAM 15 MG TABS by mouth once a day meloxicam 33389274660 Yasmin Minor METOPROLOL SUCCINATE ER 100 MG UK21W-ROW by mouth twice a day metoprolol succinate 44376474620 Yasmin Minor MONTELUKAST SODIUM 10 MG TABS by mouth montelukast 96285374648 Yasmin Minor OSTEO BI-FLEX ONE PER DAY TABS by mouth once a day glucosamine-d3 -boswellia serr 37554854696 Yasmin Minor Medications Administered No information available. [...] Procedures Code Procedure Name Date Entry Date CPT-25577 CMP CPT-04901 Sedimentation Rate (ESR) 202 02/02/09 CPT-35955 C- reactive protein [id number] CBC with Differential 2022 CPT-24604 CMP CPT-10962 C- reactive protein [id number] CBC with Differential 2022 CPT-56445 Sedimentation Rate (ESR) 202 02/01/25 Vital Signs [...]
--- OUTSIDE RECORDS SUMMARY | 2025-07-09 05:32 | XMS_ITS | Encounter Summary ---
Author Organization [employer] ([place], [place], [place], [place]) Address [address] [place] [address] Care Team Providers Care Roller Varnisher Name Role Phone Unavailable Primary Care Provider Unavailabl e Encounter Details Date Type Department Care Team (Late st Contact Info) Description 03/22/2021 Transcribed Document [facility] [place] [address] [place] [address] ProviderLibrado MD [address] [place] [address] Social History Tobacco Use Types [...] bowel syndrome); Obesity (BMI 30.0-34.9) Author: MADDIE ALTAMIRANO MD-INT 03/22/2021 Hospitalist medicine consult discharge, progress and sign off note, internal medicineMaddie MD Basic Information ???Seen and examined ???Doing [...] Peanuts Tingling Cats Congestion chlorhexidine topical Rash Dexparas Joyce Taperpak Migraine Dilaudid Slow to wake up after anesthesia Mold Congestion Pennsaid Itching tyllenol 3 headache Current medications: (Selected) Inpatient Medications Ordered Benadryl: 25 mg, Oral, Tab, On-CALL, PRN for Other (See Comment), Routine, Start 03/21/21 18:50:00 EDT, 03/21/21 18:50:00 EDT Chloraseptic Menthol 1.4% topical spray: 5 [place], Oral, [place], Q2H, PRN for Sore Throat, Routine, Start 03/21/21 18:50:00 EDT Dextrose 5% in Lactated Ringers intravenous solution 1,000 mL: 1,000 mL, Bag Volume (mL) = 1,000, IntraVENous, start date 03/21/21 10:39:00 EDT, Routine, mL/Hr100, 2.1, m2 Dulcolax Laxative: 10 mg, Rectal, Supp, Daily, PRN for Constipation, Routine, Start 04/21/21 18:50:00 EDT, 03/21/21 18:50:00 EDT DuoNeb 0.5 [...] constipation, # 60 Tab, 0 Refill(s), Pharmacy: [facility], 170.18, cm, 03/21/21 10:42:00 EDT, CLINICALHEIGHT, [...] Oral, Q4H phenol 1.4% throat spray 5 [place], Oral, Q2H promethazine 25 mg tab 12.5 [...] constipation, # 60 Tab, 0 Refill(s), Pharmacy: [facility], 170.18, cm, 03/21/21 10:42:00 EDT, CLINICALHEIGHT, [...] discharge orders placed, discharge summary note dictated. Electronically signed by Kristina Dobbs Conversion Capsule Filling Machine Operator Cerner at 03/21/2023 12:55 PM CDT documented in this encounter Plan of Treatment Not on file documented as of this encounter Visit Diagnoses Not on filedocumented in this encounter
--- OUTSIDE RECORDS SUMMARY | 2025-07-09 05:32 | XMS_ITS | Encounter Summary ---
Author Organization [employer] ([place], [place], [place], [place]) Address [address] [place] [address] Care Team Providers Care Plant And Instrument Engineer Name Role Phone Unavailable Primary Care Provider Unavailabl e Encounter Details Date Type Department Care Team (Late st Contact Info) Description 03/22/2021 Transcribed Document [facility] [place] [facility] [place] [address] ProviderLibrado MD [address] [place] [address] Social History Tobacco Use Types [...] All Active Orders Reviewed : Yes Mayela Granados, Rn - 03/22/2021 3:10 EDT documented in this encounter Plan of Treatment Not on file documented as of this encounter Visit Diagnoses Not on filedocumented in this encounter
--- OUTSIDE RECORDS SUMMARY | 2025-07-09 05:32 | XMS_ITS | Encounter Summary ---
Author Organization [employer] ([place], [place], [place], [place]) Address [address] [place] [address] Care Team Providers Care Middle School Tutor Name Role Phone Unavailable Primary Care Provider Unavailabl e Encounter Details Date Type Department Care Team (Late st Contact Info) Description 03/22/2021 Transcribed Document [facility] [place] [facility] [place] [address] ProviderLibrado MD [address] [place] [address] Social History Tobacco Use Types [...] Librado ProviderMD - 03/22/2021 12:19 PM CDT [place] [id number] JOIE HAQ :1960 Visit Time:03/21/2021 Your Visit [...] Instructions From Your Care Team Community Services: [facility] Physical Therapy Home Health Services: [facility] Medical Equipment for Home Use: Patient [...] When 04/03/2021 09:15 AM EDT Where: [address] [facility] [address] [place] [address]- Medications What How Much When Instructions Next [...] as needed for for constipation Pickup at [facility] as needed oxyCODONE (oxyCODONE 5 mg oral [...] for migraine headache as needed Pharmacy Information [facility]: [address] [place] [address] [phone] Take your medications faithfully. Do NOT skip [...] Barley. Bulgur wheat. Millet. Bran muffins. Popcorn. Talpa wafer crackers. ??? Vegetables Sweet potatoes. Spinach. Kale. Artichokes. Cabbage. Broccoli. Green peas. Carrots. Squash. ??? Fruits Berries. Pears. Apples. Oranges. Avocados. Prunes and raisins. Dried figs. ??? Meats and Other Protein Sources Matteson, kidney, romero, and soy beans. Split peas. [...] humza has 11 g of protein. ??? [place] seeds ??? 1 oz has 5.5 g [...] floor. ??? Place frequently used items in pyfj-uu-aclpv places ??? Keep electrical cables out of [...] ? Using the bathroom. ? Using household snuff grinder and screener or toxic chemicals. ? Touching or taking [...] and need to call 911, notify the dust collector operator that you have, or think you [...] clean your hands with an alcohol-based hand glass worker that contains at least 60% alcohol. Clean your hands often. ??? Wash hands: Wash your hands often with soap and water for at least 20 seconds when visibly dirty. This is especially important after blowing your nose, coughing or sneezing, and going to the bathroom, and before eating or preparing food. ??? Hand glass worker: Use an alcohol-based hand glass worker with at least 60% alcohol, covering all [...] and water or put them in the project developer. Clean all high-touch surfaces every day. Clean [...] or body fluids on them. ??? Household snuff grinder and screener and disinfectants: Clean the area or item [...] list of disinfectants can be found here: https://www.epa.gov/pesticide-registration/liid-x-ixqeglvkuetxe-zdz-qkokmpz-oe rs-cov-2 ondansetron (oral) (on ELAINA se rc) [...] may report side effects to FDA at 2-093-BFF-1508. What other drugs will affect ondansetron? Ondansetron [...] interact with ondansetron. This includes prescription and nfwb-amh-zbvkvlr medicines, vitamins, and herbal products. Give a [...] to ensure that the information provided by [facility]. ('Multum') is accurate, up-to-date, and complete, but no guarantee is made to that effect. Drug information contained herein may be time sensitive. Lanx information has been compiled for use by healthcare practitioners and consumers in the [place] and therefore Lanx does not warrant that uses outside of the [place] are appropriate, unless specifically indicated otherwise. [employer] drug information does not endorse drugs, diagnose patients or recommend therapy. drchrono drug information is an informational resource designed [...] effective or appropriate for any given patient. [employer] does not assume any responsibility for any aspect of healthcare administered with the aid of information [employer] provides. The information contained herein is not intended to cover all possible uses, directions, precautions, warnings, drug interactions, allergic reactions, or adverse effects. If you have questions about the drugs you are taking, check with your doctor, nurse or pharmacist. Copyright [id number] [employer]. Version: 13.01. Revision Date: 09/20/2016. cephalexin (sef [...] may report side effects to FDA at 4-529-QTK-9969. What other drugs will affect cephalexin? Tell your doctor about all your other medicines, especially: ?? metformin; or ?? probenecid. This list is not complete. Other drugs may affect cephalexin, including prescription and ywbc-awv-onhpisz medicines, vitamins, and herbal products. Not all [...] to ensure that the information provided by [facility]. ('Multum') is accurate, up-to-date, and complete, but no guarantee is made to that effect. Drug information contained herein may be time sensitive. Lanx information has been compiled for use by healthcare practitioners and consumers in the [place] and therefore Lanx does not warrant that uses outside of the [place] are appropriate, unless specifically indicated otherwise. [employer] drug information does not endorse drugs, diagnose patients or recommend therapy. [employer] drug information is an informational resource designed [...] effective or appropriate for any given patient. [facility] does not assume any responsibility for any aspect of healthcare administered with the aid of information [facility] provides. The information contained herein is not intended to cover all possible uses, directions, precautions, warnings, drug interactions, allergic reactions, or adverse effects. If you have questions about the drugs you are taking, check with your doctor, nurse or pharmacist. Copyright 6997-8964 [employer]. Version: 10.03. Revision Date: 12/04/2020. acetaminophen (oral) (a SEET a MIN oh fen) Actamin, Anacin AF, Aurophen, Bromo [place], Children's Tylenol, Mapap, M-Pap, Pharbetol, Silapap Childrens, [...] is a pain reliever and a fever mercury washer. There are many brands and forms of [...] may report side effects to FDA at 2-887-OZA-7657. What other drugs will affect acetaminophen? Other drugs may affect acetaminophen, including prescription and aqew-eaw-fnypejb medicines, vitamins, and herbal products. Tell your [...] to ensure that the information provided by [facility]. ('Multum') is accurate, up-to-date, and complete, but no guarantee is made to that effect. Drug information contained herein may be time sensitive. Lanx information has been compiled for use by healthcare practitioners and consumers in the [place] and therefore Lanx does not warrant that uses outside of the [place] are appropriate, unless specifically indicated otherwise. [employer] drug information does not endorse drugs, diagnose patients or recommend therapy. [employer] drug information is an informational resource designed [...] effective or appropriate for any given patient. [employer] does not assume any responsibility for any aspect of healthcare administered with the aid of information Lanx provides. The information contained herein is not intended to cover all possible uses, directions, precautions, warnings, drug interactions, allergic reactions, or adverse effects. If you have questions about the drugs you are taking, check with your doctor, nurse or pharmacist. Copyright [id number] [facility]. Version: 21.04. Revision Date: 07/07/2020. meloxicam (oral/injection) [...] may report side effects to FDA at 0-847-TNN-8332. What other drugs will affect meloxicam? Ask [...] drugs may affect meloxicam, including prescription and urgv-tph-qpzgqol medicines, vitamins, and herbal products. Not all [...] to ensure that the information provided by [facility]. ('Multum') is accurate, up-to-date, and complete, but no guarantee is made to that effect. Drug information contained herein may be time sensitive. Lanx information has been compiled for use by healthcare practitioners and consumers in the [place] and therefore Lanx does not warrant that uses outside of the [place] are appropriate, unless specifically indicated otherwise. [employer] drug information does not endorse drugs, diagnose patients or recommend therapy. drchrono drug information is an informational resource designed [...] effective or appropriate for any given patient. [employer] does not assume any responsibility for any aspect of healthcare administered with the aid of information Lanx provides. The information contained herein is not intended to cover all possible uses, directions, precautions, warnings, drug interactions, allergic reactions, or adverse effects. If you have questions about the drugs you are taking, check with your doctor, nurse or pharmacist. Copyright 1954-4440 [facility]. Version: 14.. Revision Date: 10/03/2020. docusate (oral/rectal) [...]
--- OUTSIDE RECORDS SUMMARY | 2025-07-09 05:32 | XMS_ITS | Encounter Summary ---
Author Organization [employer] ([place], [place], [place], [place]) Address [address] [place] [address] Care Team Providers Care Web User Experience Strategist Name Role Phone Unavailable Primary Care Provider Unavailabl e Encounter Details Date Type Department Care Team (Late st Contact Info) Description 03/22/2021 Transcribed Document [facility] [place] [facility] [place] [address] ProviderLibrado MD [address] [place] [address] Social History Tobacco Use Types Packs/Day [...] Address: Phone Number: [facility] [address], [address] Patient Offered Choice/Affiliations Explained : Yes [...]
--- OUTSIDE RECORDS SUMMARY | 2025-07-09 05:32 | XMS_ITS | Encounter Summary ---
Author Organization [employer] ([place], [place], [place], [place]) Address [address] [place] [address] Care Team Providers Care Cost Control Specialist Name Role Phone Unavailable Primary Care Provider Unavailabl e Encounter Details Date Type Department Care Team (Late st Contact Info) Description 03/21/2021 Transcribed Document [facility] [place] [facility] [place] [address] ProviderLibrado MD [address] [place] [address] Social History Tobacco Use Types Packs/Day [...] Assessment, OT Orientation : Oriented x 4 DASHA LEN CHAPMAN/Heaven - 03/21/2021 11:45 EDT Indication Assessment, OT Occupational Therapy Indicated : Yes Problem List, OT : Impaired, activities daily living, Impaired, endurance tolerance, Impaired functional mobility, Impaired, transfers DASHA LEN CAHPMAN/Heaven - 03/21/2021 11:45 EDT Plan of Care, OT OT Tx Plan/Goals Established w Patient : Yes OT Frequency Rehab : Three days per week OT Duration Rehab : Seven Days OT Treatments Planned : Activities of daily living, Functional mobility training, Therapeutic activities, Therapeutic exercises ARI LOU OTR/Heaven - 03/21/2021 11:45 EDT Skilled Nursing Goals, OT Other LTG Grid Goal #1 Goal #2 Goal #3 Goal : Client will complete transfers for ADLs with SBA Client will complete LB ADLs with min A Client will verbalize understanding of fall prevention, car transfer Date to Meet : 03/28/2021 EDT 03/28/2021 EDT 03/28/2021 EDT Goal Status : Initial goal Initial goal Initial goal DASHAARI OTR/Heaven - 03/21/2021 11:45 EDT ARI LOU [...] Nsg in room and aware ARI LOU OTR/L - 03/21/2021 11:45 EDT Image 1 - Images currently included in the form version of this document have not been included in the text rendition version of the form. [facility] OT Charges OT Selfcare/Hm Mgmt Ea 15 Min : 1 OT Eval Low Complexity : 1 ARI LOU OTR/L - 03/21/2021 11:45 EDT documented in this encounter Plan of Treatment Not on file documented as of this encounter Visit Diagnoses Not on filedocumented in this encounter
--- OUTSIDE RECORDS SUMMARY | 2025-07-09 05:32 | XMS_ITS | Encounter Summary ---
Author Organization [employer] ([place], [place], [place], [place]) Address [address] [place] [address] Care Team Providers Care Silver Chaser Name Role Phone Unavailable Primary Care Provider Unavailabl e Encounter Details Date Type Department Care Team (Late st Contact Info) Description 03/21/2021 Transcribed Document [facility] [place] [address] [place] [address] ProviderLibrado MD [address] [place], [place] [address] Social History Tobacco Use Types Packs/Day Years Used Date Smoking Tobacco: Never Assessed Comments Unknown Sex and Gender Information Value Date Recorded Sex Assigned at Not on file Legal Sex Female 1:10 PM CDT Gender Identity Not on file Sexual Orientation Not on file documented as of this encounter Miscellaneous Notes * Cerner Conversion Note - Librado ProviderMD - 03/21/2021 10:39 AM CDT Consult [...]
--- OUTSIDE RECORDS SUMMARY | 2025-07-09 05:32 | XMS_ITS | Encounter Summary ---
Author Organization [employer] ([place], [place], [place]) Address [address] [place] [address] Care Team Providers Care Plate Worker Name Role Phone Unavailable Primary Care Provider Unavailabl e Encounter Details Date Type Department Care Team (Late st Contact Info) Description 01/25/2021 Transcribed Document [facility] [place] [facility] [place] [address] ProviderLibrado MD [address] [place] [address] Social History Tobacco Use Types Packs/Day Years Used Date Smoking Tobacco: Never Assessed Comments Unknown Sex and Gender Information Value Date Recorded Sex Assigned at Not on file Legal Sex Female 1:10 PM CDT Gender Identity Not on file Sexual Orientation Not on file documented as of this encounter Miscellaneous Notes * Cerner Conversion Note - Librado ProviderMD - 01/25/2021 11:37 AM REGULATION SUPERVISOR Meds to Bed Enrollment Entered On: 01/25/2021 11:37 EST Performed On: 01/25/2021 11:37 EST by Deisy Collins RN Meds to Bed Enrollment Patient Enrollment Decision: : No/do not enroll in meds to bed program Deisy Collins RN - 01/25/2021 11:37 EST Electronically signed by Dilia [facility] Conversion Social Economist Cerner at 03/21/2023 12:59 PM CDT documented in this encounter Plan of Treatment Not on file documented as of this encounter Visit Diagnoses Not on filedocumented in this encounter
--- OUTSIDE RECORDS SUMMARY | 2025-07-09 05:32 | XMS_ITS | Encounter Summary ---
Author Organization [employer] ([place], [place], [place], [place]) Address [address] [place] [address] Care Team Providers Care Legal Billing Specialist Name Role Phone Unavailable Primary Care Provider Unavailabl e Encounter Details Date Type Department Care Team (Late st Contact Info) Description 03/21/2021 Transcribed Document [facility] [place] [address] [place] [address] ProviderLibrado MD [address] [place] [address] Social History Tobacco Use Types [...]
--- OUTSIDE RECORDS SUMMARY | 2025-07-09 05:32 | XMS_ITS | Referral Summary ---
Author Organization [employer] ([place], [place], [place], [place]) Address [address] [place] [address] Care Team Providers Care Medical Receptionist Biller Name Role Phone Unavailable Primary Care [...]
--- OUTSIDE RECORDS SUMMARY | 2025-07-09 05:33 | XMS_ITS | Encounter Summary ---
Author Organization [employer] ([place], [place], [place], [place]) Address [address] [place] [address] Care Team Providers Care Gardening Manager Name Role Phone Unavailable Primary Care Provider Unavailabl e Encounter Details Date Type Department Care Team (Late st Contact Info) Description 03/08/2021 Transcribed Document [facility] [place] [facility] [place] [address] ProviderLibrado MD [facility] [place] [address] Social History Tobacco Use Types [...] EDT Performed On: 03/08/2021 9:34 EDT by Desiy Collins RN Meds to Bed Enrollment Patient Enrollment Decision: : No/do not enroll in meds to bed program Deisy Collins RN - 03/08/2021 9:34 EDT documented in this encounter Plan of Treatment Not on file documented as of this encounter Visit Diagnoses Not on filedocumented in this encounter
--- OUTSIDE RECORDS SUMMARY | 2025-07-09 05:33 | XMS_ITS | Encounter Summary ---
Author Organization [employer] ([place]) Address [address] [place] [address] Care Team Providers Care Flight Security Specialist Name Role Phone Unavailable Primary Care Provider Unavailabl e Encounter Details Date Type Department Care Team (Late st Contact Info) Description 03/22/2021 Transcribed Document [facility] [place] [address] [place] [address] ProviderLibrado MD [address] [place] [address] Social History Tobacco Use Types [...] Historical ProviderMD - 03/22/2021 2:00 AM CDT Diagnostic Tech Details Entered On: 03/22/2021 1:18 EDT Performed On: 03/22/2021 2:00 EDT by Mayela Granados, Rn Order Details Transport Mode Order Detail [...]
--- OUTSIDE RECORDS SUMMARY | 2025-07-09 05:33 | XMS_ITS | Encounter Summary ---
Author Organization [employer] ([place], [place], [place], [place]) Address [address] [place] [address] Care Team Providers Care Chief Legal Officer Name Role Phone Unavailable Primary Care Provider Unavailabl e Encounter Details Date Type Department Care Team (Late st Contact Info) Description 03/22/2021 Transcribed Document [facility] [place] [facility] [place] [facility] [place] [address] ProviderLibrado MD [place] [address] Social History Tobacco Use Types Packs/Day Years Used Date Smoking Tobacco: Never Assessed Comments Unknown Sex and Gender Information Value Date Recorded Sex Assigned at Not on file Legal Sex Female 1:10 PM CDT Gender Identity Not on file Sexual Orientation Not on file documented as of this encounter Miscellaneous Notes * Cerner Conversion Note - Librado ProviderMD - 03/22/2021 3:58 PM CDT Discharge Summary, PT Entered On: 03/22/2021 15:59 EDT Performed On: 03/22/2021 15:58 EDT by PABLO ABDALLA PTA Discharge Summary Reason for Discharge : Discharged from hospital, All goals met PABLO ABDALLA PTA - 03/22/2021 15:58 EDT Discharge Summary Comment, PT : Patient was discharged home follow up from [facility] on 03/22/21 having met 3/3 acute therapy goals. Patient will have assistance at home from family members as needed. At time of discharge patient was independent with bed mobility, SBA for transfers with RWx, ambulated ~ 200' with RWx SBA, safely ascended/descended 4 steps using RAILROAD PURCHASING AGENT/CGA, safely ascended/descended 1 platform step with RWx CGA, and participated with LE exercises. Patient would continue to benefit from further skilled PT services to improve LE strength, gait mechanics, and functional mobility to maximize recovery from right anterior SALUD. I agree with above D/C summary. oBnnie Manuel, PT LYLE AYLIN B., PT - 03/22/2021 16:12 EDT Senior Care Goals Other PT LTG Grid Goal #1 [...] EDT 03/22/2021 EDT 03/22/2021 EDT PABLO ABDALLA, PSYCHIATRIC NURSE - 03/22/2021 15:58 EDT PABLO ABDALLA, PSYCHIATRIC NURSE - 03/22/2021 15:58 EDT PABLO ABDALLA, PSYCHIATRIC NURSE - 03/22/2021 15:58 EDT Electronically signed by Kristina Dobbs Conversion Opener Verifier [employer] at 03/21/2023 1:16 PM CDT documented in this encounter Plan of Treatment Not on file documented as of this encounter Visit Diagnoses Not on filedocumented in this encounter
--- OUTSIDE RECORDS SUMMARY | 2025-07-09 05:33 | XMS_ITS | Encounter Summary ---
Author Organization [employer] ([place], [place], [place], [place]) Address [address] [place] [address] Care Team Providers Care Materials And Corrosion Engineer Name Role Phone Unavailable Primary Care Provider Unavailabl e Encounter Details Date Type Department Care Team (Late st Contact Info) Description 03/22/2021 Transcribed Document [facility] [place] [facility] [place] [address] ProviderLibrado MD [address] [place] [id number] Social History Tobacco Use Types Packs/Day Years Used Date Smoking Tobacco: Never Assessed Comments Unknown Sex and Gender Information Value Date Recorded Sex Assigned at Not on file Legal Sex Female 1:10 PM CDT Gender Identity Not on file Sexual Orientation Not on file documented as of this encounter Miscellaneous Notes * Cerner Conversion Note - Librado ProviderMD - 03/22/2021 11:21 AM CDT Initial Discharge Planning Entered On: 03/22/2021 11:23 EDT Performed On: 03/22/2021 11:21 EDT by LASHAE LUGO RN Initial Assessment I Previously Documented Living Environment : No qualifying data available. Living Situation : Home Patient Lives With : Spouse Is the Patient a Caregiver at Home? : No Emergency Contact #1 : Sandip Tavares Emergency Contact #1 or [phone] Emergency Contact #1 Relationship : Spouse Emergency Contact #2 : . Emergency Contact #2 Phone Number : . Emergency Contact #2 Relationship : . Enter Doctors Name : James Gamino Does Patient have PCP Listed? : Yes Legal Guardian : No LASHAE LUGO, MAGALYS - 03/22/2021 11:21 EDT Initial Assessment II [...] Referral sent via Norberto. patient also choose [facility] for her outpatient PT. DME: patient has a Frw and raised toilet seat. CM: no further CM needs identifed. DOC: designation of choice sined and placed in chart. TRANS: to transport patient home. LAHSAE LUGO RN - 03/22/2021 11:23 EDT documented in this encounter Plan of Treatment Not on file documented as of this encounter Visit Diagnoses Not on filedocumented in this encounter
--- OUTSIDE RECORDS SUMMARY | 2025-07-09 05:33 | XMS_ITS | Encounter Summary ---
Author Organization [employer] ([place], [place], [place], [place]) Address [address] [place] [address] Care Team Providers Care Bulk Sealer Name Role Phone Unavailable Primary Care Provider Unavailabl e Encounter Details Date Type Department Care Team (Late st Contact Info) Description 01/25/2021 Transcribed Document [facility] [place] [facility] [place] [address] ProviderLibrado MD [address] [place] [id number] Social History Tobacco Use Types Packs/Day Years Used Date Smoking Tobacco: Never Assessed Comments Unknown Sex and Gender Information Value Date Recorded Sex Assigned at Not on file Legal Sex Female 1:10 PM CDT Gender Identity Not on file Sexual Orientation Not on file documented as of this encounter Miscellaneous Notes * Cerner Conversion Note - Librado ProviderMD - 01/25/2021 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 Patient: JOIE TAVARES Age: 60 Years Sex: [...] Lymph # 2.13 K/uL 01/25/2021 11:44 EST [place] % 7.4 % 01/25/2021 11:44 EST [place] # 0.57 K/uL 01/25/2021 11:44 EST Eos [...] CLOUDY2 (Abnormal) 01/25/2021 11:44 EST Urine Specific [place] 1.024 01/25/2021 11:44 EST Urine pH Dipstick [...] if Indicated Not Indicated 01/25/2021 11:44 EST Electronically signed by [facility] Conversion Binding Printer Cerner at 03/21/2023 1:13 PM CDT documented in this encounter Plan of Treatment Not on file documented as of this encounter Visit Diagnoses Not on filedocumented in this encounter
[2025-07-09 05:37] VITALS: BP 165/82; PULSE 60; RESP 14; TEMP 36.8; O2SAT 95; BMI 31.3
--- NOTE | 2025-07-09 05:50 | HMH.EDGENADL ---
Discharge Plan Disposition Patient Disposition: Home, Self-Care Condition: Good Prescriptions Prescriptions: No Action montelukast 10 mg tablet 10 mg PO DAILY 30 Days Qty: 30 Patient Comments: losartan 25 mg tablet 25 mg PO DAILY 30 Days Qty: 30 Patient Comments: metoprolol tartrate 100 mg tablet 100 mg PO BID 30 Days Qty: 60 Patient Comments: sumatriptan succinate [Imitrex] 100 mg tablet 100 mg PO NEEDED PRN (Reason: migraines) 34 Days Qty: 10 Patient Comments: furosemide 40 mg tablet 40 mg PO NEEDED PRN (Reason: fluid) 45 Days Qty: 90 Patient Comments: ketorolac 10 mg tablet 10 mg PO Q8H PRN (Reason: Pain) gabapentin 100 mg capsule 100 mg PO TID PRN (Reason: nerve pain) 10 Days Qty: 30 0RF tamsulosin 0.4 mg capsule 0.4 mg PO DAILY PRN (Reason: Kidney Stones) venlafaxine 37.5 mg capsule,extended release 24hr 37.5 mg PO DAILY omeprazole 20 mg capsule,delayed release(DR/EC) 20 mg PO DAILY diclofenac potassium 50 mg tablet 50 mg PO BID dicyclomine 20 mg tablet 20 mg PO DAILY methocarbamol 750 mg tablet 750 mg PO HS PRN (Reason: Muscle Pain) hydrocodone-acetaminophen 7.5-325 mg tablet 1 tab PO Q4-6H PRN (Reason: post op pain) 7 Days Qty: 30 0RF ondansetron 4 mg tablet,disintegrating 4 mg PO Q6H PRN (Reason: nausea and vomiting) Qty: 30 2RF potassium citrate 10 MEQ tablet extended release 10 meq PO DAILY fluticasone propionate 50 mcg/actuation spray,suspension 1 spray intranasal DAILY PRN (Reason: allergies) allopurinol 100 MG tablet 300 mg PO DAILY loratadine 10 MG capsule 10 mg PO DAILY Referrals Follow up/Referrals: Lesly Rice APRN [Primary Care Provider, Medical] - See instructions Activity Restrictions/Add. Instructions Additional Instructions/Restrictions: You were evaluated in the ER and are appropriate for discharge at this time. Continue any home medications as previously prescribed. Continue managing the wound VAC as previously directed by Dr. Peterson. Follow-up with her office as scheduled Friday. Return to the ER with any new, worsening, or otherwise concerning symptoms as discussed. Clinical Impressions Clinical Impression: Encounter for management of wound VAC, Wound of left foot Print Language Print Language: German Discharge ED Provider: Jhony Scott Adult HPI General Chief complaint: Wound/Laceration Stated complaint: wound vac blocked L foot Time Seen by Provider: 07/09/25 05:28 Mode of Arrival: Ambulatory Source of Information: Patient Description of Symptoms (Recalled from ER Triage Doc. by RN): pt presents via POV for eval of complications with her wound vac. Pt reports to being woke up approx 1 hour ago with her qound vac beeping due to being backed up. 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 WOund vac located to left foot. Denies fevers or any new associated symtpoms. History of Present Illness HPI narrative: 64-year-old female with history of nonhealing wound on the foot with wound VAC in place that is managed by Dr. Peterson with podiatry presents to the ER for wound VAC concerns. Patient reports approximately 45 minutes prior to arrival she was woken up by her wound VAC alarming. She had a blockage. She was not able to get the error to clear so she came to the ER for management. She has no pain, fevers, no new concerns with the wound itself, states she is closely managed by Dr. Peterson and has a scheduled appointment with her on Friday. She is just here for wound VAC management on the left foot. No other concerns or associated symptoms Related Data Home Medications ?Medication ?Instructions ?Recorded ?Confirmed furosemide 40 mg tablet 40 mg PO NEEDED PRN fluid 45 12/15/17 07/06/25 days ##90 losartan 25 mg tablet 25 mg PO DAILY blood pressure 30 12/15/17 07/06/25 days ##30 metoprolol tartrate 100 mg tablet 100 mg PO BID heart 30 days ##60 12/15/17 07/06/25 montelukast 10 mg tablet 10 mg PO DAILY Breathing problems 12/15/17 07/06/25 30 days ##30 sumatriptan succinate 100 mg 100 mg PO NEEDED PRN migraines 12/15/17 07/06/25 tablet (Imitrex) 34 days ##10 allopurinol 100 mg tablet 300 mg PO DAILY gout 12/18/17 07/06/25 loratadine 10 mg capsule 10 mg PO DAILY allergies 12/19/17 07/06/25 potassium citrate 10 mEq (1,080 10 meq PO DAILY Supplement 10/10/21 07/06/25 mg) tablet,extended release diclofenac potassium 50 mg tablet 50 mg PO BID 01/06/25 07/06/25 dicyclomine 20 mg tablet 20 mg PO DAILY 01/06/25 07/06/25 fluticasone propionate 50 1 spray intranasal DAILY PRN 01/06/25 07/06/25 mcg/actuation nasal allergies spray,suspension omeprazole 20 mg capsule,delayed 20 mg PO DAILY 01/06/25 07/06/25 release tamsulosin 0.4 mg capsule 0.4 mg PO DAILY PRN Kidney Stones 01/06/25 07/06/25 venlafaxine 37.5 mg 37.5 mg PO DAILY 01/06/25 07/06/25 capsule,extended release 24 hr methocarbamol 750 mg tablet 750 mg PO HS PRN Muscle Pain 04/28/25 07/06/25 ketorolac 10 mg tablet 10 mg PO Q8H PRN Pain 06/20/25 07/06/25 Previous Rx's ?Medication ?Instructions ?Recorded hydrocodone 7.5 mg-acetaminophen 1 tab PO Q4-6H PRN post op pain 7 03/15/25 325 mg tablet days #30 tabs ondansetron 4 mg disintegrating 4 mg PO Q6H PRN nausea and 03/15/25 tablet vomiting #30 tabs gabapentin 100 mg capsule 100 mg PO TID PRN nerve pain 10 06/20/25 days #30 caps Allergies Allergy/AdvReac Type Severity Reaction Status Date / Time peanut Allergy Severe Rash Verified 07/06/25 08:06 chlorhexidine Allergy Mild itching Verified 07/06/25 08:06 diclofenac (From [place]aid) Allergy Mild itching Verified 07/06/25 08:06 amitriptyline Allergy Unknown HALLUCINATI Verified 07/06/25 08:06 ONS codeine Allergy Unknown HEADACHES Verified 07/06/25 08:06 latex Allergy Unknown ITCHING,HIV Verified 07/06/25 08:06 ES,SWELLING ,RASH dexamethasone AdvReac Unknown MIGRAINES,I Verified 07/06/25 08:06 NSOMNIA hydromorphone (From Dilaudid) AdvReac Unknown SENSITIVE Verified 07/06/25 08:06 TO -NOT ALLERGIC [facility] Disclaimer: The information contained in this section may have been updated after the patient was seen, as this information can be updated by other users. Medical History Rheumatoid arthritis YOANA on CPAP Sleep apnea Fibromyalgia Migraines Arthritis Kidney stone Hypertension Bunion Hammer toe Surgical History History of cardiac cath H/O right wrist surgery RIGHT WRIST FUSION History of carpal tunnel surgery of right wrist History of bilateral knee replacement History of bilateral knee arthroplasty History of colonoscopy H/O tubal ligation History of right hip replacement Hx of appendectomy S/P cystoscopy with ureteral stent placement Family History Other Family history of diabetes mellitus type II Family history of stroke Heart disease Kidney disease Social History Smoking Status: Never smoker second hand exposure: No alcohol intake: never counseling provided: provider counseling substance use type: denies use current occupational status: employed Travel in the last 8 weeks?: None household members: spouse housing: house 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 current occupational exposures/hazards: No caffeine: Yes Have you lived/traveled outside US in past 30 days?: No Contact w/someone who lives/traveled outside US past 30 days?: No Exposure to someone with infectious disease in past 14 days?: No Do you have a fever (greater than 100.4 F or 38 C)?: No Have you tested positive for COVID-19?: No Exposed to someone with COVID-19 in past 14 days?: No Do you have a sore throat?: No Do you have a cough?: No Do you have any weakness?: No Do you have any diarrhea?: No Are you experiencing any unusual bleeding?: No Do you have any muscle aches/pain?: No Do you have any abdominal pain?: No Are you experiencing loss of taste or smell?: No Other Medical History Have you received the Flu Vaccine for this season: No Have you received the Pneumonia Vaccine: No ROS Obtained: Yes Systems reviewed as appropriate & no additional complaints except as documented per HPI Physical Exam General General appearance: alert, in no apparent distress and obese Head Head exam: atraumatic and normocephalic Eye Eye exam: Present PERRL and EOMI ENT ENT exam: Present mucous membranes moist Neck Neck exam: Present normal inspection and full ROM Chest Chest inspection: Present symmetric chest wall rise Respiratory Respiratory exam: Absent respiratory distress or stridor Cardiovascular Cardiovascular exam: Present regular rate and normal rhythm Extremities Exam Extremities exam: Present full ROM Expanded Lower Extremity Exam Left: Top foot image:  1. Wound VAC in place, mildly erythematous surrounding skin but no induration Comment: Brisk capillary refill, skin is well-appearing aside from mild erythema but no induration. Distal wound VAC tubing with material obstructing the tube. Wound VAC Tegaderm dressing on the plantar aspect no longer adhered to the skin causing leak. Neurological Exam Neurological exam: Present alert and oriented X3; Absent motor sensory deficit Psychiatric Psychiatric exam: Present normal affect and normal mood Skin Skin exam: Present warm and dry Medical Decision Making Medical Records Medical records reviewed: Yes I reviewed the patient's medical records. Screening: Per USPSTF and CDC recommendations, given the prevalence of disease in our region, it is our hospital?s policy to screen for HIV and viral Hepatitis for all patients aged 18 and over and those with ongoing risk factors. MR Comment: Most recent note from Dr. Bridges was an operative note from 07/06/[address] Peterson is appreciating some improvement in appearance with wound VAC. More debridement was performed during this procedure. Plan for follow-up on Friday for wound VAC change and on Friday with infectious disease. Anticipate staged surgery 07/13/2025 for continued debridement and application of wound graft. Amos Inquiry Pt receiving controlled substance: No Vital Signs: 07/09/25 05:37 Temperature 98.2 F Temperature Source Oral Pulse Rate [Radial] 60 Respiratory Rate 14 Blood Pressure [Right Arm] 165/82 H Blood Pressure Mean [Right Arm] 109 Blood Pressure Position [Right Arm] Sitting 02 Sat by Pulse Oximetry 95 Oxygen Delivery Method Room Air Medical Decision Narrative: In summary, this 64-year-old female with comorbidities described in the HPI not at goal therapy presents to the emergency department today with concerns of wound VAC problems. On initial evaluation patient is hemodynamically stable, afebrile, overall well-appearing. She was wearing the fracture boot/postop shoe as she was supposed to. Only limited weight bearing on the LLE as had been recommended by Dr. Peterson. She is a very pleasant patient and on exam the only concerning finding is that her wound VAC tubing distally is obstructed with dark material and the Tegaderm dressing is starting to lift on the plantar aspect of the foot causing leak. I did not completely remove the wound VAC as I do not want to remove dressing that was applied in the sterile setting, but I did separate the tubing, flush the tubing with sterile saline, then also flush the tubing once with chlorhexidine and cleaned the tubing junctions with chlorhexidine prior to rejoining them with the wound VAC. This cleared the obstruction and the VAC was no longer alarming for a blockage, it still had leak so I applied fresh Tegaderm which created a good seal. Wound VAC was able to pull at 125 which was the goal. No longer alarming. Shaan wrap that had been removed by me was loosely reapplied by me. Post op shoe reapplied by me. Patient has close follow-up scheduled with Dr. Peterson on Friday which I instructed her to keep. No other changes to management at this time. I did notify Dr. Peterson of the patient being in the ER and her management here. Patient was given instructions on continued monitoring and management, follow up instructions, and return precautions for the emergency department. Patient indicated understanding and was discharged in stable condition. Critical Care Critical Care Time Critical Care Time: No Total Time Total Critical Care Time: 35
[2025-07-09 05:53] VITALS: BP 151/78; PULSE 55; RESP 14; TEMP 36.8; O2SAT 96
== END 2025-07-09 05:54 | disposition home or self-care (01) ==
PROVIDERS: Emergency Provider Emergency Medicine; PCP Nurse Practitioner
DX: S91.302A Unspecified open wound, left foot, initial encounter (principal); Z46.89 Encounter for fitting and adjustment of other specified devices; X58.XXXA Exposure to other specified factors, initial encounter
CPT/HCPCS: 99282

== ENCOUNTER 2025-07-11 09:39 | Outpatient (CLI) | payer BC, SELFPAY ==
--- OUTSIDE RECORDS SUMMARY | 2025-07-11 09:42 | XMS_ITS | Encounter Summary ---
Author Organization [employer] ([place], [place], [place], [place]) Address [address] [place] [address] Care Team Providers Care Spice Miller Name Role Phone Unavailable Primary Care Provider Unavailabl e Encounter Details Date Type Department Care Team (Late st Contact Info) Description 03/22/2021 Transcribed Document [facility] [place] [facility] [place] [address] ProviderLibrado MD [address] [place] [address] Social History Tobacco Use Types [...] Barley. Bulgur wheat. Millet. Bran muffins. Popcorn. Baker wafer crackers. Vegetables Sweet potatoes. Spinach. Kale. Artichokes. Cabbage. Broccoli. Green peas. Carrots. Squash. Fruits Berries. Pears. Apples. Oranges. Avocados. Prunes and raisins. Dried figs. Meats and Other Protein Sources [place], kidney, romero, and soy beans. Split peas. [...] humza has 11 g of protein. ?? [place] seeds ??? 1 oz has 5.5 g [...] floor. ?? Place frequently used items in foja-tm-[id number] places ?? Keep electrical cables out of [...] ?? Using the bathroom. ?? Using household ladies' locker room attendant or toxic chemicals. ?? Touching or taking [...] all positive cases are reported through the [facility] health department and the [place] Department for [...] and need to call 911, notify the knockout machine operator that you have, or think [...] clean your hands with an alcohol-based hand shuttle hand that contains at least 60% alcohol. Clean your hands often. ??? Wash hands: Wash your hands often with soap and water for at least 20 seconds when visibly dirty. This is especially important after blowing your nose, coughing or sneezing, and going to the bathroom, and before eating or preparing food. ??? Hand shuttle hand: Use an alcohol-based hand shuttle hand with at least 60% alcohol, covering all [...] and water or put them in the applications tester. Clean all high-touch surfaces every day. Clean [...] or body fluids on them. ??? Household ladies' locker room attendant and disinfectants: Clean the area or item [...] list of disinfectants can be found here: https://www.epa.gov/pesticide-registration/pvuw-t-taihzrejzzfjd-stm-bmwcrtg-wr rs-cov-2 documented in this encounter Plan of Treatment Not on file documented as of this encounter Visit Diagnoses Not on filedocumented in this encounter
--- OUTSIDE RECORDS SUMMARY | 2025-07-11 09:42 | XMS_ITS | Encounter Summary ---
Author Organization [employer] ([place], [place], [place], [place]) Address [address] [place] [address] Care Team Providers Care Cake Washer Name Role Phone Unavailable Primary Care Provider Unavailabl e Encounter Details Date Type Department Care Team (Late st Contact Info) Description 03/22/2021 Transcribed Document [facility] [place] [facility] [place] [address] ProviderLibrado MD [address] [place] [address] Social History Tobacco Use Types [...]
--- OUTSIDE RECORDS SUMMARY | 2025-07-11 09:42 | XMS_ITS | Encounter Summary ---
Author Organization [employer] ([place], [place], [place], [place]) Address [address] [place] [address] Care Team Providers Care Rigging Slinger Name Role Phone Unavailable Primary Care Provider Unavailabl e Encounter Details Date Type Department Care Team (Late st Contact Info) Description 03/21/2021 Transcribed Document [facility] [place] Formerly [facility] [place] [address] ProviderLibrado MD [address] [place] [address] Social History Tobacco Use Types Packs/Day [...] JOIE TAVARES/Sex: 1960 Female Med Rec #: [id number] Physician: DARY GAMEZ JR, JR, MD-ORT Financial #: [id number] Pt. Type: O Room/Bed: EAS/1 Admit/Disch: 03/21/21 04:39:00 - [place] [facility] [place] Attendance Entry 1 Entry 2 Entry 3 Case Attendee DARY GAMEZ JR, JR, WHITAKER, CARLY, Davis, Stephen J, RNFA MD-ORT POLYSTYRENE BEAD MOLDER-ANS Role Performed Surgeon/Proceduralist, POLYSTYRENE BEAD MOLDER/Nurse Dentofacial Orthopedics Dentist NAILA First Time In 03/21/21 07:28:00 03/21/21 [...] Performed Scrub, First Scrub, Second Cell Saver Reports Analysis Manager Time In 03/21/21 07:28:00 03/21/21 07:28:00 03/21/21 [...] ATTENDEE #2 Sarah Biggs LONGSWORTH, GARY, MAGALYS Security Operations Analyst Role Performed Vendor Circuit Board Assembler Insurance Professional, First Time In 03/21/21 07:28:00 03/21/21 07:35:00 [...] Case Attendee FAITH ESCOBEDO RN Role Performed Insurance Professional, Second Time In 03/21/21 09:04:00 Time Out 03/21/21 09:15:00 Procedure Hip Total Anterior Approach(Right) Other Attendee Superficial Wound Closed By: Last Modified By: KAMERON CORREA RN 03/21/21 09:14:09 [facility] IntraOp Case Attendance Audit 03/21/21 09:14:09 Odd Piece Checker: LONGGA Modifier: LONGGA 1 <+> Time Out [...] Procedure Hip Total Anterior Approach(Right) 03/21/21 09:09:17 Odd Piece Checker: LONGGA Modifier: LONGGA 9 <+> Time Out 9 <*> Procedure Hip Total Anterior Approach(Right) <+> 10 Case Attendee <+> 10 Role Performed <+> 10 Time In <+> 10 Procedure 03/21/21 07:55:56 Odd Piece Checker: LONGGA Modifier: LONGGA <+> 9 Case Attendee <+> 9 Role Performed <+> 9 Time In <+> 9 Procedure 03/21/21 07:53:41 Odd Piece Checker: LONGGA Modifier: LONGGA 6 <*> Time In 03/21/21 07:28:00 6 <*> Procedure Hip Total Anterior Approach(Right) 03/21/21 07:53:18 Odd Piece Checker: LONGGA Modifier: LONGGA <+> 1 Procedure 2 <*> Procedure Hip Total Anterior Approach(Right) 3 <*> Procedure Hip Total Anterior Approach(Right) 4 <*> Procedure Hip Total Anterior Approach(Right) 5 <*> Procedure Hip Total Anterior Approach(Right) 6 <+> Time In 6 <*> Procedure Hip Total Anterior Approach(Right) 7 <*> Procedure Hip Total Anterior Approach(Right) 8 <*> Procedure Hip Total Anterior Approach(Right) 03/21/21 07:43:00 Odd Piece Checker: LONGGA Modifier: LONGGA <+> 1 Time In [...] [facility] IntraOp Case Times Audit 03/21/21 09:14:07 Odd Piece Checker: LONGGA Modifier: LONGGA <+> 1 Out Room Time <+> 1 Stop Time 03/21/21 09:13:29 Odd Piece Checker: LONGGA Modifier: LONGGA <+> 1 Stop Time 03/21/21 07:53:13 Odd Piece Checker: LONGGA Modifier: LONGGA <+> 1 Start Time [...] IntraOp Dressing and Packing Audit 03/21/21 08:58:36 Odd Piece Checker: MARY Modifier: GIRISHGA 1 <-> Wound Dressing [...] IntraOp Fire Risk Assessment Audit 03/21/21 08:09:15 Odd Piece Checker: MARY Modifier: LONGGA <+> 1 Fire Risk Assessment Verified By <+> 1 Fire Risk Assessment Verified Date/Time <+> 1 High Risk Protocol Implemented [facility] IntraOp General Case Grocery Clerk Selling 1 Case Information [place] [facility] [place] 1 Room Verified Yes Wound [...] D HIP STEM ACCOLADE II Identification 48MM [id number] Description Implant Quantity 1 1 1 Implant Site RIGHT HIP RIGHT HIP RIGHT HIP Implant Identification Model Number Implant Identification Serial Number Implant [id number] Identification Lot Number Implant [place] Ortho Cap [place]:Nikita Nikiat:[place] Identification Orthopaedics Orthopaedics Education And Development Manager Name: Implant [id number] Identification Catalog Number Implant Size Implant Has an Yes Yes Yes Expiration Date Implant Expiration 10/18/25 11/02/25 12/23/25 Date Wasted Radioactive Material Time Implanted Tissue Implant Continue for Tissue Implant Documentation Tissue Identification Number Graft Prep Per Education And Development Manager Instructions: Tissue Preparation Method: Reconstitution Solution: Reconstitution Solution Lot Number Reconstitution Solution Expiration Date: Thawing Solution Thawing Solution Lot Number Thawing Solution Expiration Date Preparation Materials, Other Preparation Materials, Other Lot Number Preparation Materials, Other Expiration Date Tissue Prepared/Processed By Education And Development Manager Paperwork Completed Implant Type Comment Last Modified By: KAMERON CORREA RN LONGSWORTH, GARY, RN LONGSWORTH, GARY, RN 03/21/21 08:19:39 03/21/21 08:20:33 03/21/21 08:43:38 Entry 4 Type Implant (Synthetic) Implant Log Implant Type Hardware Tissue Implant Type Implant HEAD FEM BIOLOX V40 Identification [id number] Description Implant Quantity 1 Implant Site RIGHT HIP Implant Identification Model Number Implant Identification Serial Number Implant [id number] Identification Lot Number Implant Nikita:Nikita Identification Orthopaedics Education And Development Manager Name: Implant [id number] Identification Catalog Number Implant Size Implant Has an Yes Expiration Date Implant Expiration 09/27/25 Date Wasted Radioactive Material Time Implanted Tissue Implant Continue for Tissue Implant Documentation Tissue Identification Number Graft Prep Per Education And Development Manager Instructions: Tissue Preparation Method: Reconstitution Solution: Reconstitution Solution Lot Number Reconstitution Solution Expiration Date: Thawing Solution Thawing Solution Lot Number Thawing Solution Expiration Date Preparation Materials, Other Preparation Materials, Other Lot Number Preparation Materials, Other Expiration Date Tissue Prepared/Processed By Education And Development Manager Paperwork Completed Implant Type Comment Last Modified By: KAMERON CORREA RN 03/21/21 08:47:34 [facility] IntraOp Implant Log Audit 03/21/21 08:47:34 Odd Piece Checker: MARY Modifier: MARY <+> 4 Implant Identification Description <+> 4 Implant Identification Lot Number <+> 4 Implant Identification Education And Development Manager Name: <+> 4 Implant Expiration Date <+> 4 Implant Site <+> 4 Implant Quantity <+> 4 Implant Identification Catalog Number <+> 4 Implant Type <+> 4 Implant Has an Expiration Date <+> 4 Type 03/21/21 08:43:38 Odd Piece Checker: MARY Modifier: LONGGA <+> 3 Implant Identification Description <+> 3 Implant Identification Lot Number <+> 3 Implant Identification Education And Development Manager Name: <+> 3 Implant Expiration Date <+> 3 Implant Site <+> 3 Implant Quantity <+> 3 Implant Identification Catalog Number <+> 3 Implant Type <+> 3 Implant Has an Expiration Date <+> 3 Type 03/21/21 08:20:33 Odd Piece Checker: LONGGA Modifier: LONGGA <+> 2 Implant Identification Description <+> 2 Implant Identification Lot Number <+> 2 Implant Identification Education And Development Manager Name: <+> 2 Implant Expiration Date <+> [...] 1000units/ml SEALR AQUAMANTYS BIPLR CLONIDINE-10ML 10ml - [id number] Combo Med List 1 - Combo Med Time Administered Route of CELLSAVER REVENUE STAMP CUTTER INJECTION, RIGHT HIP Administration Dose Dose 88666 0.8 Unit of Measure units ml Volume [...] 0.5% 30ml vial Xylocaine 1% w/ - [id number] epinephrine 1:200,000 30ml vial - [id number] Combo Med List 1 - Combo Med [...] Yes Checked Positioning Devices Arm Board, Table, [place], Safety Strap, Chest Device Position HANA TABLE; PERINEAL POST Positioned By SIS SHAH CRNA-ANS, DARY GAMEZ JR, JR, MD-ORT, KAMERON CORREA, MAGALYS, Mati Fuentes, FINISHING INSPECTOR Position Verified Positioning Yes Verified by Anesthesia [...] [facility] IntraOp Skin Prep Audit 03/21/21 10:21:05 Odd Piece Checker: MARY Modifier: LONGGA 1 <*> Prep Agents [...] S[facility] IntraOp Surgical Procedures Audit 03/21/21 09:13:33 Odd Piece Checker: LONGGA Modifier: LONGGA <+> 1 Stop [facility] IntraOp Temp Regulation Devices Entry 1 Temp Regulation Temperature Conductive warming Regulation Device device placed over patient Temperature 4764 Regulation Device Serial/Unit Number Temperature Upper body Regulation Site Temperature Device 43 Setting Temperature SIS SHAH, Regulation Device POLYSTYRENE BEAD MOLDER-ANS Applied by Last Modified By: KAMERON CORREA [...] Fluoroscopy Fluoroscopy Type C-Arm Site RIGHT HIP Inspector Floor Sub Assembly Name Sarah Biggs, Security Operations Analyst Protective Devices Yes Used Last Modified By: [...]
--- OUTSIDE RECORDS SUMMARY | 2025-07-11 09:42 | XMS_ITS | Encounter Summary ---
Author Organization [employer] ([place], [place], [place], [place]) Address [address] [place] [address] Care Team Providers Care Raise Drill Operator Name Role Phone Unavailable Primary Care Provider Unavailabl e Encounter Details Date Type Department Care Team (Late st Contact Info) Description 03/22/2021 Transcribed Document [facility] [place] [address] [place] [address] ProviderLibrado MD [address] [place] [address] Social History Tobacco Use Types [...] Historical ProviderMD - 03/22/2021 2:00 AM CDT Airline Pilot Details Entered On: 03/22/2021 1:18 EDT Performed [...]
--- OUTSIDE RECORDS SUMMARY | 2025-07-11 09:42 | XMS_ITS | Encounter Summary ---
Author Organization [employer] ([place], [place], [place], [place]) Address [address] [place] [address] Care Team Providers Care Weed Thinner Name Role Phone Unavailable Primary Care Provider Unavailabl e Encounter Details Date Type Department Care Team (Late st Contact Info) Description 03/22/2021 Transcribed Document [facility] [place] [address] ProviderLibrado MD [address] [place] [address] Social History Tobacco Use Types Packs/Day [...] Address: Phone Number: [facility] [address], [place], [address] Discharge Options Discussed with Patient [...] Referral sent via Norberto. patient also choose [facility] for her outpatient PT. DME: [...]
--- OUTSIDE RECORDS SUMMARY | 2025-07-11 09:42 | XMS_ITS | Encounter Summary ---
Author Organization [employer] ([place], [place], [place], [place]) Address [address] [place] [address] Care Team Providers Care Vehicle Calibration Engineer Name Role Phone Unavailable Primary Care Provider Unavailabl e Encounter Details Date Type Department Care Team (Late st Contact Info) Description 03/22/2021 Transcribed Document [facility] [place] [facility] [place] [address] ProviderLibrado MD [address] [place] [address] Social History Tobacco Use Types [...] Librado ProviderMD - 03/22/2021 12:19 PM CDT [place] [phone] JOIE HAQ :1960 Visit Time:03/21/2021 Your Visit [...] Instructions From Your Care Team Community Services: [facility] Physical Therapy Home Health Services: [facility] Medical Equipment for Home Use: Patient [...] When 04/03/2021 09:15 AM EDT Where: [address] [facility] [address] [place] [address]- Medications What How Much When Instructions Next [...] as needed for for constipation Pickup at [facility] as needed oxyCODONE (oxyCODONE 5 mg oral [...] for migraine headache as needed Pharmacy Information [facility]: [address] [place] [address] [phone] Take your medications faithfully. Do NOT skip [...] Barley. Bulgur wheat. Millet. Bran muffins. Popcorn. Taylor wafer crackers. ??? Vegetables Sweet potatoes. Spinach. Kale. Artichokes. Cabbage. Broccoli. Green peas. Carrots. Squash. ??? Fruits Berries. Pears. Apples. Oranges. Avocados. Prunes and raisins. Dried figs. ??? Meats and Other Protein Sources [place], kidney, romero, and soy beans. Split peas. [...] humza has 11 g of protein. ??? Hunt seeds ??? 1 oz has 5.5 g [...] floor. ??? Place frequently used items in lqcc-pp-vqgjs places ??? Keep electrical cables out of [...] ? Using the bathroom. ? Using household coding clerk or toxic chemicals. ? Touching or taking [...] and need to call 911, notify the under seal operator that you have, or think you [...] clean your hands with an alcohol-based hand refinery operator reforming unit that contains at least 60% alcohol. Clean your hands often. ??? Wash hands: Wash your hands often with soap and water for at least 20 seconds when visibly dirty. This is especially important after blowing your nose, coughing or sneezing, and going to the bathroom, and before eating or preparing food. ??? Hand refinery operator reforming unit: Use an alcohol-based hand refinery operator reforming unit with at least 60% alcohol, covering all [...] and water or put them in the job foreman. Clean all high-touch surfaces every day. Clean [...] or body fluids on them. ??? Household coding clerk and disinfectants: Clean the area or item [...] list of disinfectants can be found here: https://www.epa.gov/pesticide-registration/eyvb-v-oxcbuhjubewnx-wwa-glrjrwo-vc rs-cov-2 ondansetron (oral) (on ELAINA se rc) [...] may report side effects to FDA at 5-822-PJY-3934. What other drugs will affect ondansetron? Ondansetron [...] interact with ondansetron. This includes prescription and lmed-pmt-gojscfk medicines, vitamins, and herbal products. Give a [...] to ensure that the information provided by [employer]. ('[employer]') is accurate, up-to-date, and complete, but no guarantee is made to that effect. Drug information contained herein may be time sensitive. [employer] information has been compiled for use by healthcare practitioners and consumers in the [place] and therefore [employer] does not warrant that uses outside of the [place] are appropriate, unless specifically indicated otherwise. [employer] drug information does not endorse drugs, diagnose patients or recommend therapy. [employer] drug information is an informational resource designed [...] effective or appropriate for any given patient. [employer] does not assume any responsibility for any aspect of healthcare administered with the aid of information [employer] provides. The information contained herein is not intended to cover all possible uses, directions, precautions, warnings, drug interactions, allergic reactions, or adverse effects. If you have questions about the drugs you are taking, check with your doctor, nurse or pharmacist. Copyright 9637-2587 [employer]. Version: 13.01. Revision Date: 09/20/2016. cephalexin (sef [...] may report side effects to FDA at 9-855-LPL-6931. What other drugs will affect cephalexin? Tell your doctor about all your other medicines, especially: ?? metformin; or ?? probenecid. This list is not complete. Other drugs may affect cephalexin, including prescription and vljr-ezq-duqknrl medicines, vitamins, and herbal products. Not all [...] to ensure that the information provided by [employer]. ('[employer]') is accurate, up-to-date, and complete, but no guarantee is made to that effect. Drug information contained herein may be time sensitive. [employer] information has been compiled for use by healthcare practitioners and consumers in the [place] and therefore [employer] does not warrant that uses outside of the [place] are appropriate, unless specifically indicated otherwise. [employer] drug information does not endorse drugs, diagnose patients or recommend therapy. [employer] drug information is an informational resource designed [...] effective or appropriate for any given patient. [facility] does not assume any responsibility for any aspect of healthcare administered with the aid of information [facility] provides. The information contained herein is not intended to cover all possible uses, directions, precautions, warnings, drug interactions, allergic reactions, or adverse effects. If you have questions about the drugs you are taking, check with your doctor, nurse or pharmacist. Copyright 3313-6590 [facility] CenterCryoocyteINTEGRATED BIOPHARMA. Version: 10.03. Revision Date: 12/04/2020. acetaminophen (oral) (a SEET a MIN oh fen) Actamin, Anacin AF, Aurophen, Bromo [place], Children's Tylenol, Mapap, M-Pap, Pharbetol, Silapap Childrens, [...] is a pain reliever and a fever wheel roller. There are many brands and forms of [...] may report side effects to FDA at 5-275-UDO-5258. What other drugs will affect acetaminophen? Other drugs may affect acetaminophen, including prescription and emcu-qkq-sbvhnbe medicines, vitamins, and herbal products. Tell your [...] to ensure that the information provided by [employer]. ('[employer]') is accurate, up-to-date, and complete, but no guarantee is made to that effect. Drug information contained herein may be time sensitive. [employer] information has been compiled for use by healthcare practitioners and consumers in the [place] and therefore [employer] does not warrant that uses outside of the [place] are appropriate, unless specifically indicated otherwise. [employer] drug information does not endorse drugs, diagnose patients or recommend therapy. [employer] drug information is an informational resource designed [...] effective or appropriate for any given patient. [employer] does not assume any responsibility for any aspect of healthcare administered with the aid of information [employer] provides. The information contained herein is not intended to cover all possible uses, directions, precautions, warnings, drug interactions, allergic reactions, or adverse effects. If you have questions about the drugs you are taking, check with your doctor, nurse or pharmacist. Copyright 8876-0874 [employer]. Version: 21.04. Revision Date: 07/07/2020. meloxicam (oral/injection) [...] may report side effects to FDA at 0-306-SJP-1534. What other drugs will affect meloxicam? Ask [...] drugs may affect meloxicam, including prescription and hyfa-ihd-slzibwh medicines, vitamins, and herbal products. Not all [...] to ensure that the information provided by [employer]. ('[employer]') is accurate, up-to-date, and complete, but no guarantee is made to that effect. Drug information contained herein may be time sensitive. [employer] information has been compiled for use by healthcare practitioners and consumers in the [place] and therefore [employer] does not warrant that uses outside of the [place] are appropriate, unless specifically indicated otherwise. [employer] drug information does not endorse drugs, diagnose patients or recommend therapy. [employer] drug information is an informational resource designed [...] effective or appropriate for any given patient. [employer] does not assume any responsibility for any aspect of healthcare administered with the aid of information [employer] provides. The information contained herein is not intended to cover all possible uses, directions, precautions, warnings, drug interactions, allergic reactions, or adverse effects. If you have questions about the drugs you are taking, check with your doctor, nurse or pharmacist. Copyright 4284-6838 [employer]. Version: 14.. Revision Date: 10/03/2020. docusate (oral/rectal) [...] hands before and after using the enema. Electronically signed by Kristina Dobbs Conversion Bereavement Program Coordinator Cerner at 03/21/2023 1:18 PM CDT documented in this encounter Plan of Treatment Not on file documented as of this encounter Visit Diagnoses Not on filedocumented in this encounter
--- OUTSIDE RECORDS SUMMARY | 2025-07-11 09:42 | XMS_ITS | Encounter Summary ---
Author Organization [employer] ([place], [place], [place], [place]) Address [address] [place] [address] Care Team Providers Care Obstetrics Gynecology Md Name Role Phone Unavailable Primary Care Provider Unavailabl e Encounter Details Date Type Department Care Team (Late st Contact Info) Description 03/21/2021 Transcribed Document [facility] [place] [address] [place] [address] ProviderLibrado MD [address] [place] [address] Social History Tobacco Use Types [...] Mayela Granados, Rn - 03/22/2021 0:42 EDT Electronically signed by Kristina Dobbs Conversion Facilities Management Executive Cerner at 03/21/2023 1:04 PM CDT documented in this encounter Plan of Treatment Not on file documented as of this encounter Visit Diagnoses Not on filedocumented in this encounter
--- OUTSIDE RECORDS SUMMARY | 2025-07-11 09:42 | XMS_ITS | Encounter Summary ---
Author Organization [employer] ([place], [place], [place], [place]) Address [address] [place] [address] Care Team Providers Care Final Expense Agent Name Role Phone Unavailable Primary Care Provider Unavailabl e Encounter Details Date Type Department Care Team (Late st Contact Info) Description 03/21/2021 Transcribed Document [facility] [place] Medicine [facility] [place] [address] ProviderLibrado MD [address] [place] [address] Social History Tobacco Use Types Packs/Day [...] JOIE TAVARES/Sex: 1960 Female Med Rec #: [id number] Physician: DARY GAMEZ JR, JR, MD-ORT Financial #: [id number] Pt. Type: O Room/Bed: EAS/1 Admit/Disch: 03/21/21 04:39:00 - [place] [facility] [place] PreOp Case Times Entry 1 In Preop 03/21/21 05:20:00 Ready for Holding n/a Room Patient Ready for 03/21/21 06:35:00 Surgery Patient Out of Preop 03/21/21 07:26:00 Patient Out of n/a Holding Room Last Modified By: OMI SELBY 03/21/21 09:40:02 [facility] PreOp Case Times Audit 03/21/21 09:40:02 Student Development Dean: EDWARD Modifier: CATLETDD <+> 1 Patient Out of Preop Finalized By: OMI SELBY Document Signatures Signed By: OMI SELBY 03/21/21 09:40 Electronically signed by Dilia [facility] Conversion Sanitation Lead Cerner at 03/21/2023 12:55 PM CDT documented in this encounter Plan of Treatment Not on file documented as of this encounter Visit Diagnoses Not on filedocumented in this encounter
--- OUTSIDE RECORDS SUMMARY | 2025-07-11 09:42 | XMS_ITS | Encounter Summary ---
Author Organization [employer] ([place], [place], [place], [place]) Address [address] [place] [address] Care Team Providers Care Typewriter Assembly And Parts Inspector Name Role Phone Unavailable Primary Care Provider Unavailabl e Encounter Details Date Type Department Care Team (Late st Contact Info) Description 03/21/2021 Transcribed Document [facility] [place] [facility] [place] [address] ProviderLibrado MD [address] [place] [address] Social History Tobacco Use Types Packs/Day [...] Source : Measured Height Entry Format : [place] Height, Feet : 5 ft(Converted to: 152 cm, 60 Inch) Height, Inches : 7 Inch(Converted to: 0 ft 7 Inch, 17.78 cm) Clinical Height : 170.18 cm Weight Source : Standing scale Weight Entry Format : [place] Clinical Dosing Weight : 93.18 kg Weight, Pounds : 205 lb Body Surface Area (BSA) : 2.05 m2 Body Mass Index : 32.2 kg/m2 (HI) [place] Body Weight : 61 kg BILLY ALFARO [...] BILLY ALFARO RN - 03/21/2021 6:36 EDT [place] Suicide Severity Rating Scale (C-SSRS) CSSRS Past [...] : Sandip Tavares Emergency Contact #1 or [phone] Emergency Contact #1 Relationship : Spouse Emergency Contact #2 : . Emergency Contact #2 Phone Number : . Emergency Contact #2 Relationship : . Information Obtained From : Patient Primary Language : Welsh Preferred Communication Mode : Verbal Communication Barrier : None Intern Product Marketing Manager Needed : No Currently Lactating : No [...]
--- OUTSIDE RECORDS SUMMARY | 2025-07-11 09:42 | XMS_ITS | Encounter Summary ---
Author Organization [employer] ([place], [place], [place], [place]) Address [address] [place] [address] Care Team Providers Care Gate Operator Name Role Phone Unavailable Primary Care Provider Unavailabl e Encounter Details Date Type Department Care Team (Late st Contact Info) Description 01/25/2021 Transcribed Document [facility] [place] Family Medicine [facility] [place] [address] ProviderLibrado MD [address] [place] [address] Social History Tobacco Use Types Packs/Day Years Used Date Smoking Tobacco: Never Assessed Comments Unknown Sex and Gender Information Value Date Recorded Sex Assigned at Not on file Legal Sex Female 1:10 PM CDT Gender Identity Not on file Sexual Orientation Not on file documented as of this encounter Miscellaneous Notes * Cerner Conversion Note - Librado ProviderMD - 01/25/2021 11:29 AM CITY PLANNING ENGINEER PAT Adult Entered On: 01/25/2021 11:35 EST [...] Source : Measured Height Entry Format : Dickens Height, Feet : 5 ft(Converted to: 152 cm, 60 Inch) Height, Inches : 7 Inch(Converted to: 0 ft 7 Inch, 17.78 cm) Clinical Height : 170.18 cm Weight Source : Standing scale Weight Entry Format : Dickens Clinical [facility] [place] Weight : 99.09 kg Weight, Pounds : 218 lb Body Surface Area (BSA) : 2.1 m2 Body Mass Index : 34.2 kg/m2 (HI) [place] Body Weight : 61 kg Deisy Collins [...] Deisy Collins RN - 01/25/2021 11:29 EST [place] Suicide Severity Rating Scale (C-SSRS) CSSRS Past [...] : Sandip Tavares Emergency Contact #1 or [phone] Emergency Contact #1 Relationship : Spouse Emergency Contact #2 : . Emergency Contact #2 Phone Number : . Emergency Contact #2 Relationship : . Primary Language : Turkmen Preferred Communication Mode : Verbal Communication Barrier : None Rn Transitional Needed : No Deisy Collins RN - [...]
--- OUTSIDE RECORDS SUMMARY | 2025-07-11 09:42 | XMS_ITS | Clinical Summary ---
Author Organization [facility] Address [address] [place] [address] Phone Care Team Providers Care Gps Field Data Collector Name Role Phone Marcio STILES, Brian Kate [phone] [ ] Conditions or Problems Problem Name Problem Code Onset Date Status Entry Date Provider Comment Standard Description Annotate Eschar 348944966 (SNOMED CT) Active Brian Buckley MD Skin eschar Hematoma of arm 309590990 (SNOMED CT) Active Brian Buckley MD Hematoma Other obesity due to excess calories 191916843 (SNOMED CT) Active Yasmin Minor Simple obesity Gram negative infection 839548914 (SNOMED CT) Active Brian Buckley MD 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-negative bacteria Wound infection 21330172 (SNOMED CT) Active Brian Buckley MD Local infection of wound Knee, right, initial encounter(s) , 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 T84.53xA (ICD-10-CM) Active Clare Hemal Infection and 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 prosthesis, initial encounter Effusion, right knee M25.461 (ICD-10-CM) Active Clare Hemal Effusion, right knee Cellulitis of RLE 313962815 (SNOMED CT) Active Clare Hemal Cellulitis of lower limb Medications Medication Instructions Start Date Stop Date Generic Name NDC Provider BACTRIM DS 800-160 MG TABS Take 1 tablet by mouth twice a day 5 sulfamethoxazo le-trimethopri m [id number] Brian Buckley MD CLINDAMYCIN HCL 150 MG CAPS by mouth clindamycin hcl 33322557914 Lois Suarez DIFLUCAN 150 MG TABS by mouth fluconazole 55219468443 Lois Suarez ALLOPURINOL 100 MG TABS by mouth once a day allopurinol 04967731913 Yasmin Minor CEFADROXIL 500 MG CAPS by mouth three times a day cefadroxil 72699362910 Yasmin Minor CLINDAMYCIN HCL 150 MG CAPS by mouth clindamycin hcl 94094999315 Yasmin Minor DICYCLOMINE HCL 20 MG TABS by mouth dicyclomine 95190890489 Yasmin Minor DIFLUCAN 150 MG TABS by mouth fluconazole 59055290914 Yasmin Minor DOXYCYCLINE HYCLATE 100 MG CAPS by mouth twice a day doxycycline hyclate 85983949078 Yasmin Minor FUROSEMIDE 40 MG TABS by mouth once a day furosemide 97213116903 Yasmin Minor LORATADINE 10 MG TABS by mouth once a day loratadine 38187975043 Yasmin Minor LOSARTAN POTASSIUM 25 MG TABS by mouth once a day losartan 01432861114 Yasmin Minor MELOXICAM 15 MG TABS by mouth once a day meloxicam 96933090714 Yasmin Minor METOPROLOL SUCCINATE ER 100 MG JB83N-AFT by mouth twice a day metoprolol succinate 39689765422 Yasmin Minor MONTELUKAST SODIUM 10 MG TABS by mouth montelukast 04176667615 Yasmin Minor OSTEO BI-FLEX ONE PER DAY TABS by mouth once a day glucosamine-d3 -boswellia serr 80412289696 Yasmin Minor Medications Administered No information available. [...] Procedures Code Procedure Name Date Entry Date CPT-68490 CMP CPT-75831 Sedimentation Rate (ESR) 202 02/02/09 CPT-65908 C- reactive protein [id number] CBC with Differential 2022 CPT-71229 CMP CPT-15733 C- reactive protein [id number] CBC with Differential 2022 CPT-81137 Sedimentation Rate (ESR) 202 02/01/25 Vital Signs [...]
--- OUTSIDE RECORDS SUMMARY | 2025-07-11 09:42 | XMS_ITS | Encounter Summary ---
Author Organization [employer] ([place], [place], [place], [place]) Address [address] [place] [address] Care Team Providers Care Franchise Broker Name Role Phone Unavailable Primary Care Provider Unavailabl e Encounter Details Date Type Department Care Team (Late st Contact Info) Description 03/21/2021 Transcribed Document [facility] [place] Family Medicine [facility] [place] [address] ProviderLibrado MD [address] [place] [address] Social History Tobacco Use Types Packs/Day [...] : Sandip Tavares Emergency Contact #1 or [phone] Emergency Contact #1 Relationship : Spouse Emergency Contact #2 : . Emergency Contact #2 Phone Number : . Emergency Contact #2 Relationship : . Information Obtained From : Patient Primary Language : Portuguese Preferred Communication Mode : Verbal Communication Barrier : None Battery Stacker Needed : No Currently Lactating : No [...] Level : 46 or > High Risk [place] Fall Interventions : Adequate lighting, Assistive devices [...] Source : Measured Height Entry Format : [place] Height, Feet : 5 ft(Converted to: 152 cm, 60 Inch) Height, Inches : 7 Inch(Converted to: 0 ft 7 Inch, 17.78 cm) Clinical Height : 170.18 cm Weight Source : Standing scale Weight Entry Format : [place] Clinical Dosing Weight : 93.18 kg Weight, Pounds : 205 lb Body Surface Area (BSA) : 2.05 m2 Body Mass Index : 32.2 kg/m2 (HI) [place] Body Weight : 61 kg Beatrice Torres [...] Beatrice Torres RN - 03/21/2021 10:42 EDT [place] Suicide Severity Rating Scale (C-SSRS) CSSRS Past Month Wish to be : No CSSRS Past Month Suicidal Thoughts : No CSSRS Lifetime Suicide Behavior : No Suicide Severity Rating Score : 0 Suicide Severity Rating : No Additional Care Required at this time Beatrice Torers RN - 03/21/2021 10:42 EDT Psychosocial History [...] Personal Items Disposition : With patient Beatrice Torrse RN - 03/21/2021 10:42 EDT documented in this encounter Plan of Treatment Not on file documented as of this encounter Visit Diagnoses Not on filedocumented in this encounter
--- OUTSIDE RECORDS SUMMARY | 2025-07-11 09:42 | XMS_ITS | Encounter Summary ---
Author Organization [employer] ([place], [place], [place], [place]) Address [address] [place] [address] Care Team Providers Care Tool Designer Apprentice Name Role Phone Unavailable Primary Care Provider Unavailabl e Encounter Details Date Type Department Care Team (Late st Contact Info) Description 03/21/2021 Transcribed Document [facility] [place] [address] ProviderLibrado MD [address] [place] [address] Social History Tobacco Use Types Packs/Day [...] COMPONENTS USED: Size 48 press-fit acetabular component [place] with a neutral poly liner to accept [...] the recovery room. Final condition was improved. /[id number] MD SIMIN Infante Jr/SHOBHA / SIMIN / MODL /[id number] Electronically signed by Kristina Dobbs Conversion Technology Infusion Specialist Cerner at 03/21/2023 12:54 PM CDT documented in this encounter Plan of Treatment Not on file documented as of this encounter Visit Diagnoses Not on filedocumented in this encounter
--- OUTSIDE RECORDS SUMMARY | 2025-07-11 09:42 | XMS_ITS | Encounter Summary ---
Author Organization [employer] ([place], [place], [place], [place]) Address [address] [place] [address] Care Team Providers Care Signal Maintainer Name Role Phone Unavailable Primary Care Provider Unavailabl e Encounter Details Date Type Department Care Team (Late st Contact Info) Description 03/22/2021 Transcribed Document [facility] [place] [facility] [place] [address] ProviderLibrado MD [facility] [address] Social History Tobacco Use Types [...] Patient was discharged home follow up from [facility] on 03/22[facility]21 having met 3/3 acute therapy goals. Patient will have assistance at home from family members as needed. At time of discharge patient was independent with bed mobility, SBA for transfers with RWx, ambulated ~ 200' with RWx SBA, safely ascended/descended 4 steps using BATTERY STACKER/CGA, safely ascended/descended 1 platform step with RWx CGA, and participated with LE exercises. Patient would continue to benefit from further skilled PT services to improve LE strength, gait mechanics, and functional mobility to maximize recovery from right anterior SALUD. I agree with above D/C summary. Bonnie Manuel, PT LYLE AYLIN B., PT - 03/22/2021 16:12 EDT Senior Living Goals Other PT LTG Grid Goal #1 [...] EDT 03/22/2021 EDT 03/22/2021 EDT PABLO ABDALLA, SINGLE NEEDLE TUFTING MACHINE OPERATOR - 03/22/2021 15:58 EDT PABLO ABDALLA, SINGLE NEEDLE TUFTING MACHINE OPERATOR - 03/22/2021 15:58 EDT PABLO ABDALLA, SINGLE NEEDLE TUFTING MACHINE OPERATOR - 03/22/2021 15:58 EDT documented in this encounter Plan of Treatment Not on file documented as of this encounter Visit Diagnoses Not on filedocumented in this encounter
--- OUTSIDE RECORDS SUMMARY | 2025-07-11 09:42 | XMS_ITS | Referral Summary ---
Author Organization [employer] ([place], [place], [place], [place]) Address [address] [place] [address] Care Team Providers Care Earth Science Professor Name Role Phone Unavailable Primary Care Provider [...]
--- OUTSIDE RECORDS SUMMARY | 2025-07-11 09:42 | XMS_ITS | Encounter Summary ---
Author Organization [employer] ([place], [place], [place], [place]) Address [address] [place] [address] Care Team Providers Care Regulatory Affairs Manager Name Role Phone Unavailable Primary Care Provider Unavailabl e Encounter Details Date Type Department Care Team (Late st Contact Info) Description 03/21/2021 Transcribed Document [facility] [place] Family Medicine [address] [place] [address] ProviderLibrado MD [address] [place], [place] [id number] Social History Tobacco Use Types Packs/Day Years [...]
--- OUTSIDE RECORDS SUMMARY | 2025-07-11 09:42 | XMS_ITS | Encounter Summary ---
Author Organization [employer] ([place], [place], [place], [place]) Address [address] [place] [address] Care Team Providers Care Vertical Punch Operator Name Role Phone Unavailable Primary Care Provider Unavailabl e Encounter Details Date Type Department Care Team (Late st Contact Info) Description 03/22/2021 Transcribed Document [facility] [place] Family Medicine [facility] [place] [address] ProviderLibrado MD [address] [place] [address] Social History Tobacco Use Types [...] Librado ProviderMD - 03/22/2021 12:43 PM CDT [place] [id number] JOIE HAQ :1960 Visit Time:03/21/2021 Your Visit [...] Instructions From Your Care Team Community Services: [facility] Physical Therapy Home Health Services: [facility] Medical Equipment for Home Use: Patient [...] When 04/03/2021 09:15 AM EDT Where: [address] [facility] [address] [place] [address]- Medications What How Much When Instructions Next Dose aspirin (aspirin 81 mg oral delayed release tablet) 1 Tablet(s) Oral Two Times A Day Duration: 45 Day(s) cefadroxil (cefadroxil 500 mg oral capsule) 1 Capsule(s) Oral Every 12 hours Duration: 6 Day(s) docusate (docusate sodium 100 mg oral tablet) 1 Tablet(s) Oral Two Times A Day as needed for for constipation Pickup at [facility] oxyCODONE (oxyCODONE 5 mg [...] as needed for migraine headache Pharmacy Information [facility]: [address] [phone] Take your medications faithfully. Do NOT skip [...] Barley. Bulgur wheat. Millet. Bran muffins. Popcorn. [place] wafer crackers. Vegetables Sweet potatoes. Spinach. Kale. Artichokes. Cabbage. Broccoli. Green peas. Carrots. Squash. Fruits Berries. Pears. Apples. Oranges. Avocados. Prunes and raisins. Dried figs. Meats and Other Protein Sources [place], kidney, romero, and soy beans. Split peas. [...] humza has 11 g of protein. ??? [place] seeds ??? 1 oz has 5.5 g [...] floor. ??? Place frequently used items in qqit-ht-iabdl places ??? Keep electrical cables out of [...] ??? Using the bathroom. ??? Using household motor express clerk or toxic chemicals. ??? Touching or taking [...] and need to call 911, notify the wood turning lathe operator that you have, or think you [...] clean your hands with an alcohol-based hand printer helper that contains at least 60% alcohol. Clean your hands often. ??? Wash hands: Wash your hands often with soap and water for at least 20 seconds when visibly dirty. This is especially important after blowing your nose, coughing or sneezing, and going to the bathroom, and before eating or preparing food. ??? Hand printer helper: Use an alcohol-based hand printer helper with at least 60% alcohol, covering all [...] and water or put them in the chronic condition nurse. Clean all high-touch surfaces every day. Clean [...] or body fluids on them. ??? Household motor express clerk and disinfectants: Clean the area or [...] list of disinfectants can be found here: https://www.epa.gov/pesticide-registration/tbzy-x-jatvtxjaauvwb-hyk-mvdapzj-lh rs-cov-2 ondansetron (oral) (on ELAINA se rc) [...] may report side effects to FDA at 1-830-NGO-3111. What other drugs will affect ondansetron? Ondansetron [...] interact with ondansetron. This includes prescription and ronr-kcw-ikpmjpw medicines, vitamins, and herbal products. Give a [...] to ensure that the information provided by [employer]. ('[employer]') is accurate, up-to-date, and complete, but no guarantee is made to that effect. Drug information contained herein may be time sensitive. [employer] information has been compiled for use by healthcare practitioners and consumers in the [place] and therefore [employer] does not warrant that uses outside of the [place] are appropriate, unless specifically indicated otherwise. [employer]'s drug information does not endorse drugs, diagnose patients or recommend therapy. [employer] drug information is an informational resource designed [...] effective or appropriate for any given patient. [facility] :[employer] does not assume any responsibility for any aspect of healthcare administered with the aid of information [facility] :[employer] provides. The information contained herein is not intended to cover all possible uses, directions, precautions, warnings, drug interactions, allergic reactions, or adverse effects. If you have questions about the drugs you are taking, check with your doctor, nurse or pharmacist. Copyright 5789-3721 [employer]. Version: 13.01. Revision Date: 09/20/2016. cephalexin (sef [...] may report side effects to FDA at 8-269-OJK-5145. What other drugs will affect cephalexin? Tell your doctor about all your other medicines, especially: ?? metformin; or ?? probenecid. This list is not complete. Other drugs may affect cephalexin, including prescription and mdfp-pov-ylfeqdx medicines, vitamins, and herbal products. Not all [...] to ensure that the information provided by [employer]. ('[employer]') is accurate, up-to-date, and complete, but no guarantee is made to that effect. Drug information contained herein may be time sensitive. [employer] information has been compiled for use by healthcare practitioners and consumers in the [place] and therefore [employer] does not warrant that uses outside of the [place] are appropriate, unless specifically indicated otherwise. [employer] drug information does not endorse drugs, diagnose patients or recommend therapy. [employer] drug information is an informational resource designed [...] effective or appropriate for any given patient. [employer] does not assume any responsibility for any aspect of healthcare administered with the aid of information [employer] provides. The information contained herein is not intended to cover all possible uses, directions, precautions, warnings, drug interactions, allergic reactions, or adverse effects. If you have questions about the drugs you are taking, check with your doctor, nurse or pharmacist. Copyright 6700-5000 [employer]. Version: 10.. Revision Date: 12/04/2020. acetaminophen (oral) (a SEET a MIN oh fen) Actamin, Anacin AF, Aurophen, Bromo [place], Children's Tylenol, Mapap, M-Pap, Pharbetol, Silapap Childrens, [...] is a pain reliever and a fever bellhop. There are many brands and forms of [...] may report side effects to FDA at 9-767-IHB-7036. What other drugs will affect acetaminophen? Other drugs may affect acetaminophen, including prescription and ulpu-ojn-rbrdfvc medicines, vitamins, and herbal products. Tell your [...] to ensure that the information provided by [employer]. ('[employer]') is accurate, up-to-date, and complete, but no guarantee is made to that effect. Drug information contained herein may be time sensitive. [employer] information has been compiled for use by healthcare practitioners and consumers in the [place] and therefore [employer] does not warrant that uses outside of the [place] are appropriate, unless specifically indicated otherwise. [employer]'s drug information does not endorse drugs, diagnose patients or recommend therapy. [employer] drug information is an informational resource designed [...] effective or appropriate for any given patient. [employer] does not assume any responsibility for any aspect of healthcare administered with the aid of information [employer] provides. The information contained herein is not intended to cover all possible uses, directions, precautions, warnings, drug interactions, allergic reactions, or adverse effects. If you have questions about the drugs you are taking, check with your doctor, nurse or pharmacist. Copyright 4241-7320 [employer]. Version: 21.04. Revision Date: 07/07/2020. meloxicam (oral/injection) [...] may report side effects to FDA at 4-889-ZCI-5122. What other drugs will affect meloxicam? Ask [...] drugs may affect meloxicam, including prescription and fpqq-jwd-frrrusl medicines, vitamins, and herbal products. Not all [...] to ensure that the information provided by [employer]. ('[employer]') is accurate, up-to-date, and complete, but no guarantee is made to that effect. Drug information contained herein may be time sensitive. [employer] information has been compiled for use by healthcare practitioners and consumers in the [place] and therefore [employer] does not warrant that uses outside of the [place] are appropriate, unless specifically indicated otherwise. [employer] drug information does not endorse drugs, diagnose patients or recommend therapy. [employer] drug information is an informational resource designed [...] effective or appropriate for any given patient. [employer] does not assume any responsibility for any aspect of healthcare administered with the aid of information [employer] provides. The information contained herein is not intended to cover all possible uses, directions, precautions, warnings, drug interactions, allergic reactions, or adverse effects. If you have questions about the drugs you are taking, check with your doctor, nurse or pharmacist. Copyright 2494-1142 [employer]. Version: 14.. Revision Date: 10/03/2020. docusate (oral/rectal) [...]
--- OUTSIDE RECORDS SUMMARY | 2025-07-11 09:42 | XMS_ITS | Encounter Summary ---
Author Organization [employer] ([place], [place], [place], [place]) Address [address] [place] [address] Care Team Providers Care Certified Medical Technician Name Role Phone Unavailable Primary Care Provider Unavailabl e Encounter Details Date Type Department Care Team (Late st Contact Info) Description 03/21/2021 Transcribed Document [facility] [place] Family Medicine [facility] [place] [address] ProviderLibrado MD [address] [place] [address] Social History Tobacco Use Types Packs/Day [...] On: 03/22/2021 9:27 EDT by PABLO ABDALLA, INTERNAL CONTROL ANALYST General Information, PT Visit Type, PT : [...] PABLO ABDALLA PTA - 03/22/2021 10:05 EDT Group Home Goals Other PT LTG Grid Goal #1 [...] EDT 03/22/2021 EDT 03/22/2021 EDT PABLO ABDALLA, INTERNAL CONTROL ANALYST - 03/22/2021 10:05 EDT RM PABLO Frederick, INTERNAL CONTROL ANALYST - 03/22/2021 10:05 EDT RM PABLO Frederick, INTERNAL CONTROL ANALYST - 03/22/2021 10:05 EDT Treatment Note Subjective [...] for Treatment : Anticipated d/c home from [facility] today. PABLO ABDALLA, BERNARDO - 03/22/2021 10:05 EDT Pain Assessment Pain Scaled Used : 0-10 Pain scale Pain Score Pre-Intervention : 0 PABLO ABDALLA, BERNARDO - 03/22/2021 10:05 EDT Image 1 - Images currently included in the form version of this document have not been included in the text rendition version of the form. Gu-Win PT Charges INTERNAL CONTROL ANALYST PT Therap. Exercise 15 min-INTERNAL CONTROL ANALYST : 1 Gait Training Each 15 Min-INTERNAL CONTROL ANALYST : 1 PABLO ABDALLA, INTERNAL CONTROL ANALYST - 03/22/2021 10:05 EDT Electronically signed by Kristina Dobbs Conversion Orientation And Mobility Instructor Cerner at 03/21/2023 1:04 PM CDT documented in this encounter Plan of Treatment Not on file documented as of this encounter Visit Diagnoses Not on filedocumented in this encounter
--- OUTSIDE RECORDS SUMMARY | 2025-07-11 09:42 | XMS_ITS | Encounter Summary ---
Author Organization [employer] ([place], [place], [place], [place]) Address [address] [place] [address] Care Team Providers Care Second Language Tutor Name Role Phone Unavailable Primary Care Provider Unavailabl e Encounter Details Date Type Department Care Team (Late st Contact Info) Description 03/08/2021 Transcribed Document [facility] [place] [facility] [place] [address] ProviderLibrado MD [facility] [place] [address] Social History Tobacco Use Types [...]
--- OUTSIDE RECORDS SUMMARY | 2025-07-11 09:42 | XMS_ITS | Encounter Summary ---
Author Organization [employer] ([place], [place], [place], [place]) Address [address] [place] [address] Care Team Providers Care Filling Technician Name Role Phone Unavailable Primary Care Provider Unavailabl e Encounter Details Date Type Department Care Team (Late st Contact Info) Description 03/22/2021 Transcribed Document [facility] [place] [address] ProviderLibrado MD [address] [place] [address] Social History Tobacco Use Types [...]
--- OUTSIDE RECORDS SUMMARY | 2025-07-11 09:42 | XMS_ITS | Encounter Summary ---
Author Organization [employer] ([place], [place], [place], [place]) Address [address] [place] [address] Care Team Providers Care It Sales Consultant Name Role Phone Unavailable Primary Care Provider Unavailabl e Encounter Details Date Type Department Care Team (Late st Contact Info) Description 03/22/2021 Transcribed Document [facility] [place] [address] ProviderLibrado MD [address] [place] [address] Social History Tobacco Use Types Packs/Day [...] Address: Phone Number: [facility] [address], [address] Patient Offered Choice/Affiliations Explained : [...]
--- OUTSIDE RECORDS SUMMARY | 2025-07-11 09:42 | XMS_ITS | Encounter Summary ---
Author Organization [employer] ([place], [place], [place]) Address [address] [place] [address] Care Team Providers Care Traffic Manager Name Role Phone Unavailable Primary Care Provider Unavailabl e Encounter Details Date Type Department Care Team (Late st Contact Info) Description 03/21/2021 Transcribed Document [facility] [place] Family Medicine Replaced by [facility] [place] [address] ProviderLibrado MD [address] [place] [address] Social History Tobacco Use Types [...] Oral, Q4H phenol 1.4% throat spray 5 [place], Oral, Q2H promethazine 25 mg tab 12.5 [...] HTN, heart disease Procedure history: tubal. Appendectomy; (50477). trigger finger. arthroscopy both knees. left total knee with Titanium. right CTR. cysto lithotripsy. several hammertoe/bunion surgeries. right wrist joint fusion. facet injects and rhizotomy. heart cath and lexiscan stress test 2010. retina; vein injections monthly. RTKA with Titanium. Colonoscopy (283502257). Cystoscopy (21746164). Bilateral Cataract Removal with IOL Implants. Lithotripsy ([id number]). Social History Patient is and has no children, she quit [employer] on 01/10/1993.Denies drinking alcohol. Physical Examination VS/Measurements [...] swelling, No deformity, Normal gait. Integumentary: Warm, [place], Intact, No pallor, No rash, WOUND STABLE. [...] then you may give Tylenol 650 mg PO/WY x 1. If no response in 2 [...]
--- OUTSIDE RECORDS SUMMARY | 2025-07-11 09:42 | XMS_ITS | Encounter Summary ---
Author Organization [employer] ([place], [place], [place], [place]) Address [address] [place] [address] Care Team Providers Care Communications Electrician Supervisor Name Role Phone Unavailable Primary Care Provider Unavailabl e Encounter Details Date Type Department Care Team (Late st Contact Info) Description 03/08/2021 Transcribed Document [facility] [place] Medicine [facility] [place] [address] ProviderLibrado MD [address] [place] [address] Social History Tobacco Use Types Packs/Day [...] Appearance CLEAR2 03/08/2021 09:44 EDT Urine Specific [place] 1.012 03/08/2021 09:44 EDT Urine pH Dipstick [...]
--- OUTSIDE RECORDS SUMMARY | 2025-07-11 09:42 | XMS_ITS | Encounter Summary ---
Author Organization [employer] ([place], [place], [place], [place]) Address [address] [place] [address] Care Team Providers Care Knitting Machine Fixer Head Name Role Phone Unavailable Primary Care Provider Unavailabl e Encounter Details Date Type Department Care Team (Late st Contact Info) Description 03/22/2021 Transcribed Document [facility] [place] [facility] [place] [address] ProviderLibrado MD [address] [place] [address] Social History Tobacco Use Types [...]
--- OUTSIDE RECORDS SUMMARY | 2025-07-11 09:42 | XMS_ITS | Clinical Summary ---
Author Organization [employer] ([place], [place], [place], [place]) Address [address] [place] [address] Care Team Providers Care Catheter Builder Name Role Phone Unavailable Primary Care Provider [...]
--- OUTSIDE RECORDS SUMMARY | 2025-07-11 09:42 | XMS_ITS | Encounter Summary ---
Author Organization [employer] ([place], [place]) Address [address] [place] [address] Care Team Providers Care Contracting Executive Name Role Phone Unavailable Primary Care Provider Unavailabl e Encounter Details Date Type Department Care Team (Late st Contact Info) Description 03/21/2021 Transcribed Document [facility] [place] [facility] [place] [address] ProviderLibrado MD [address] [place] [address] Social History Tobacco Use Types Packs/Day [...] JOIE TAVARES/Sex: 1960 Female Med Rec #: [id number] Physician: DARY GAMEZ JR, JR, MD-ORT Financial #: [id number] Pt. Type: O Room/Bed: EAS/1 Admit/Disch: 03/21/21 04:39:00 - Institution: [facility] PACU Case Times Entry 1 In PACU I 03/21/21 09:16:00 Ready for PACU 03/21/21 10:10:00 Discharge Discharge from PACU 03/21/21 10:10:00 I Last Modified By: MAN GOODMAN 03/21/21 10:10:56 [facility] PACU Case Times Audit 03/21/21 10:10:56 Aircraft Armament Mechanic: VALERIA Modifier: COLEMAM <+> 1 Ready for PACU Discharge <+> 1 Discharge from PACU I Finalized By: MAN GOODMAN Document Signatures Signed By: MAN GOODMAN 03/21/21 10:11 Electronically signed by Dilia [facility] Conversion Executive Director Contract Shop Cerner at 03/21/2023 1:17 PM CDT documented in this encounter Plan of Treatment Not on file documented as of this encounter Visit Diagnoses Not on filedocumented in this encounter
--- OUTSIDE RECORDS SUMMARY | 2025-07-11 09:42 | XMS_ITS | Encounter Summary ---
Author Organization [employer] ([place], [place], [place], [place]) Address [address] [place] [address] Care Team Providers Care Lead Refiner Name Role Phone Unavailable Primary Care Provider Unavailabl e Encounter Details Date Type Department Care Team (Late st Contact Info) Description 03/22/2021 Transcribed Document [facility] [place] [facility] [place] [address] ProviderLibrado MD [address] [place] [address] Social History Tobacco Use Types [...] Policy Numbers : Insurance 1 Health Plan: [employer] Policy Number: [id number] Authorization Number: [id number] Insurance Primary Name : [facility] Policy Number: [id number] Authorization Status-Primary : Opo status approv Authorized Service Begin Date-Primary : 03/21/2021 EDT Observation Authorization Nbr-Primary : [id number] Authorization Comments-Primary : [facility] auth approved for outpt per Star note Historical Authorization Comments-Primary : No Authorization Comments Found CONRAD COWAN RN-Utilization Review - 03/22/2021 8:25 EDT documented in this encounter Plan of Treatment Not on file documented as of this encounter Visit Diagnoses Not on filedocumented in this encounter
--- OUTSIDE RECORDS SUMMARY | 2025-07-11 09:42 | XMS_ITS | Encounter Summary ---
Author Organization [employer] ([place], [place], [place], [place]) Address [address] [place] [address] Care Team Providers Care Java J2Ee Software Engineer Name Role Phone Unavailable Primary Care Provider Unavailabl e Encounter Details Date Type Department Care Team (Late st Contact Info) Description 03/22/2021 Transcribed Document [facility] [place] Family Medicine [address] [place] [address] ProviderLibrado MD [address] [place], [place] [address] Social History Tobacco Use Types Packs/Day Years [...]
--- OUTSIDE RECORDS SUMMARY | 2025-07-11 09:42 | XMS_ITS | Encounter Summary ---
Author Organization [employer] ([place], [place], [place], [place]) Address [address] [place] [address] Care Team Providers Care Length Control Tester Name Role Phone Unavailable Primary Care Provider Unavailabl e Encounter Details Date Type Department Care Team (Late st Contact Info) Description 03/21/2021 Transcribed Document [facility] [place] [facility] [place] [address] ProviderLibrado MD [address] [place] [address] Social History Tobacco Use Types Packs/Day [...] Low Spiritual Framework : Integrated, provides strength/resource Jehovah'S Witness Preference : Oriental Orthodox DAYNA OCONNOR Chaplain-Non Cert - 03/21/2021 7:29 EDT documented in this encounter Plan of Treatment Not on file documented as of this encounter Visit Diagnoses Not on filedocumented in this encounter
--- OUTSIDE RECORDS SUMMARY | 2025-07-11 09:42 | XMS_ITS | Encounter Summary ---
Author Organization [employer] ([place], [place], [place]) Address [address] [place] [address] Care Team Providers Care Molecular Geneticist Name Role Phone Unavailable Primary Care Provider Unavailabl e Encounter Details Date Type Department Care Team (Late st Contact Info) Description 03/08/2021 Transcribed Document [facility] [place] Family Medicine [facility] [place] [address] ProviderLibrado MD [address] [place] [address] Social History Tobacco Use Types Packs/Day [...] Oxygen Therapy Mode : Room air Deisy Clolins RN - 03/08/2021 9:34 EDT Height and Weight, Clinical Dosing Height Source : Measured Height Entry Format : [place] Height, Feet : 5 ft(Converted to: 152 cm, 60 Inch) Height, Inches : 7 Inch(Converted to: 0 ft 7 Inch, 17.78 cm) Clinical Height : 170.18 cm Weight Source : Standing scale Weight Entry Format : [place] Clinical Dosing Weight : 95 kg Weight, Pounds : 209 lb Body Surface Area (BSA) : 2.06 m2 Body Mass Index : 32.8 kg/m2 (HI) [place] Body Weight : 61 kg Deisy Collins [...] Deisy Collins RN - 03/08/2021 9:34 EDT [place] Suicide Severity Rating Scale (C-SSRS) CSSRS Past [...] : Sandip Tavares Emergency Contact #1 or [phone] Emergency Contact #1 Relationship : Spouse Emergency Contact #2 : . Emergency Contact #2 Phone Number : . Emergency Contact #2 Relationship : . Primary Language : Ethiopian Preferred Communication Mode : Verbal Communication Barrier : None Leadership Program Associate Needed : No Deisy Collins RN - [...]
--- OUTSIDE RECORDS SUMMARY | 2025-07-11 09:42 | XMS_ITS | Encounter Summary ---
Author Organization [employer] ([place], [place], [place], [place]) Address [address] [place] [address] Care Team Providers Care Consumer Lender Name Role Phone Unavailable Primary Care Provider Unavailabl e Encounter Details Date Type Department Care Team (Late st Contact Info) Description 03/22/2021 Transcribed Document [facility] [place] Family Medicine Pending sale [facility] [address] ProviderLibrado MD [address] [place] [address] Social History Tobacco Use Types Packs/Day [...] : Sandip Tavares Emergency Contact #1 or [phone] Emergency Contact #1 Relationship : Spouse Emergency [...] Referral sent via Norberto. patient also choose [facility] for her outpatient PT. DME: [...]
--- OUTSIDE RECORDS SUMMARY | 2025-07-11 09:42 | XMS_ITS | Encounter Summary ---
Author Organization [employer] ([place], [place], [place], [place]) Address [address] [place] [address] Care Team Providers Care Gravure Printing Machinist Name Role Phone Unavailable Primary Care Provider Unavailabl e Encounter Details Date Type Department Care Team (Late st Contact Info) Description 01/25/2021 Transcribed Document [facility] [place] [facility] [place] [address] ProviderLibrado MD [address] [place] [address] Social History Tobacco Use Types [...] - Librado ProviderMD - 01/25/2021 11:37 AM ENVIRONMENTAL PROGRAMS MANAGER Meds to Bed Enrollment Entered On: 01/25/2021 [...]
--- OUTSIDE RECORDS SUMMARY | 2025-07-11 09:42 | XMS_ITS | Encounter Summary ---
Author Organization [employer] ([place], [place], [place], [place]) Address [address] [place] [address] Care Team Providers Care Night Time Nanny Name Role Phone Unavailable Primary Care Provider Unavailabl e Encounter Details Date Type Department Care Team (Late st Contact Info) Description 03/21/2021 Transcribed Document [facility] [place] [facility] [place] [address] ProviderLibrado MD [address] [place] [address] Social History Tobacco Use Types Packs/Day [...] ARI LOU OTR/Heaven - 03/21/2021 11:45 EDT Airplane Patrol Pilot Goals, OT Other LTG Grid Goal #1 Goal #2 Goal #3 Goal : Client will complete transfers for ADLs with SBA Client will complete LB ADLs with min A Client will verbalize understanding of fall prevention, car transfer Date to Meet : 03/28/2021 EDT 03/28/2021 EDT 03/28/2021 EDT Goal Status : Initial goal Initial goal Initial goal DASHARAI OTR/Heaven - 03/21/2021 11:45 EDT ARI LOU [...]
--- OUTSIDE RECORDS SUMMARY | 2025-07-11 09:42 | XMS_ITS | Encounter Summary ---
Author Organization [employer] ([place], [place], [place], [place]) Address [address] [place] [address] Care Team Providers Care Examination Grader Name Role Phone Unavailable Primary Care Provider Unavailabl e Encounter Details Date Type Department Care Team (Late st Contact Info) Description 03/22/2021 Transcribed Document [facility] [place] Family Medicine [address] [place] [address] ProviderLibrado MD [address] [place] [address] Social History Tobacco Use Types [...] - 03/22/2021 12:08 PM CDT Patient: JOIE TAVARSE Age: 60 years Sex: Female : 1960 [...] EDT Chloraseptic Menthol 1.4% topical spray: 5 Drew, Oral, Drew, Q2H, PRN for Sore Throat, Routine, Start [...] constipation, # 60 Tab, 0 Refill(s), Pharmacy: [facility], 170.18, cm, 03/21/21 10:42:00 [...] Oral, Q4H phenol 1.4% throat spray 5 [place], Oral, Q2H promethazine 25 mg tab 12.5 [...] constipation, # 60 Tab, 0 Refill(s), Pharmacy: [facility], 170.18, cm, 03/21/21 10:42:00 [...]
--- OUTSIDE RECORDS SUMMARY | 2025-07-11 09:42 | XMS_ITS | Encounter Summary ---
Author Organization [employer] ([place], [place], [place], [place]) Address [address] [place] [address] Care Team Providers Care Motor Block Mechanic Name Role Phone Unavailable Primary Care Provider Unavailabl e Encounter Details Date Type Department Care Team (Late st Contact Info) Description 03/21/[address] [facility] [place] [facility] [place] [address] ProviderLibrado MD [address] [place] [address] Social History Tobacco Use Types Packs/Day [...] Oriented x 4 Attention Assessment : Present BARABRA NOYOLA, PT - 03/21/2021 12:00 EDT Edu [...] BARBARA NOYOLA, PT - 03/21/2021 12:00 EDT Detention Goals Other PT LTG Grid [...]
--- OUTSIDE RECORDS SUMMARY | 2025-07-11 09:42 | XMS_ITS | Encounter Summary ---
Author Organization [employer] ([place], [place], [place], [place]) Address [address] [place] [address] Care Team Providers Care Bookkeeping Machine Operator Name Role Phone Unavailable Primary Care Provider Unavailabl e Encounter Details Date Type Department Care Team (Late st Contact Info) Description 03/22/2021 Transcribed Document [facility] [place] [facility] [place] [address] ProviderLibrado MD [address] [place] [address] Social History Tobacco Use Types Packs/Day [...] Performed On: 03/22/2021 13:23 EDT by HECTOR BCEKWITH RN Discharge Documentation Discharge Date/Time : 03/22/2021 13:07 EDT Transporter Signature : Columba Gold [facility] Unit Coord Patient Disposition, General : Discharge [...]
--- OUTSIDE RECORDS SUMMARY | 2025-07-11 09:42 | XMS_ITS | Encounter Summary ---
Author Organization [employer] ([place], [place], [place], [place]) Address [address] [place] [address] Care Team Providers Care Hospital Education Coordinator Name Role Phone Unavailable Primary Care Provider Unavailabl e Encounter Details Date Type Department Care Team (Late st Contact Info) Description 03/22/2021 Transcribed Document [facility] [place] [address] [place] [address] ProviderLibrado MD [address] [place] [address] Social History Tobacco Use Types [...] 03/22/2021 11:38 EDT Electronically signed by D[facility] Conversion Chemistry Research Assistant Cerner at 03/21/2023 1:05 PM CDT documented in this encounter Plan of Treatment Not on file documented as of this encounter Visit Diagnoses Not on filedocumented in this encounter
--- OUTSIDE RECORDS SUMMARY | 2025-07-11 09:43 | XMS_ITS | Encounter Summary ---
Author Organization [employer] ([place], [place], [place], [place]) Address [address] [place] [address] Care Team Providers Care Tile Setter Name Role Phone Unavailable Primary Care Provider Unavailabl e Encounter Details Date Type Department Care Team (Late st Contact Info) Description 01/25/2021 Transcribed Document [facility] [place] [facility] [place] [address] ProviderLibrado MD [address] [place] [address] Social History Tobacco Use Types Packs/Day Years Used Date Smoking Tobacco: Never Assessed Comments Unknown Sex and Gender Information Value Date Recorded Sex Assigned at Not on file Legal Sex Female 1:10 PM CDT Gender Identity Not on file Sexual Orientation Not on file documented as of this encounter Miscellaneous Notes * Cerner Conversion Note - Librado ProviderMD - 01/25/2021 11:00 AM MARINE STEAMFITTER Patient: JOIE TAVARES Age: 60 Years Sex: [...] Lymph # 2.13 K/uL 01/25/2021 11:44 EST [place] % 7.4 % 01/25/2021 11:44 EST [place] # 0.57 K/uL 01/25/2021 11:44 EST Eos [...] CLOUDY2 (Abnormal) 01/25/2021 11:44 EST Urine Specific [place] 1.024 01/25/2021 11:44 EST Urine pH Dipstick [...] Indicated 01/25/2021 11:44 EST Electronically signed by [facility] Conversion Cutter Operator Helper Cerner at 03/21/2023 1:13 PM CDT documented in this encounter Plan of Treatment Not on file documented as of this encounter Visit Diagnoses Not on filedocumented in this encounter
[2025-07-11 11:14] LABS: Chloride 106 mmol/L (98-107); Sodium 138 mmol/L (136-145)
[2025-07-11 11:15] LABS: Potassium 4.0 mmoL/L (3.5-5.1)
[2025-07-11 11:17] LABS: Blood Urea Nitrogen 21 mg/dl (7-17); Creatinine,Serum 0.70 mg/dl (0.52-1.04); Estimated Glomerular Filt Rate 85 ml/min (>60); GFR (African American) 102 ML/MIN (>60)
[2025-07-11 11:18] LABS: Anion Gap 11.0 mEq/L (5-15); Calcium 8.7 mg/dl (8.4-10.2); Carbon Dioxide 25 mmol/L (22.0-30.0); Glucose 91 mg/dl (74-100)
[2025-07-11 11:50] LABS: Vancomycin,Trough 13.0 ug/mL (5.0-10.0)
== END 2025-07-11 23:59 | disposition home or self-care (01) ==
LOC: LAB 09:40 → INF 10:17
PROVIDERS: PCP Nurse Practitioner; Visit Provider Podiatrist
DX: M86.172 Other acute osteomyelitis, left ankle and foot (principal); I83.025 Varicose veins of left lower extremity with ulcer other part of foot
CPT/HCPCS: 36415; 36592; 80048; 80202; 96523

== ENCOUNTER 2025-07-13 08:27 | Day surgery (SDC) | payer BC, SELFPAY ==
[2025-07-13 09:09] VITALS: BP 146/65; PULSE 50; RESP 18; TEMP 36.3; O2SAT 98; BMI 69.0
--- NOTE | 2025-07-13 09:34 | P.OP_ITS ---
Date of procedure: 07/13/25 Pre-op Diagnosis:: Left foot surgical wound Left venous stasis ulcer B/L venous insufficiency RA Post-op Diagnosis:: Same Procedure performed:: [facility] Application of skin graft substitute leg ([id number]) Surgical prep of skin graft recipient site (22455) Wound debridement (52215) Surgeon:: Mony Peterson DPM Anesthesia: none Estimated blood loss (mL): 2 Clinical Note:: Pre-Op indications: Patient is a 64-year-old female with a left foot surgical wound/venous statsis ulcer. Patient has failed conservative treatment, including multiple debridements, various wound dressings, antibiotics, immobilization, wound vac therapy. Patient has seen both [facility] wound care clinic and [facility] (patient unable to tolerate HBOT chamber). Patient had recent CT left foot which showed suspected osteomyelitis. She has surgery 06/16/25 for bone biopsy, wound debridemet, wound vac application. She has had several rounds of oral antibiotics: Cipro, Levo, Doxy, topical gentamicin. Referral for Infectious Disease made, made on culture results. Started PICC, IV Vanco on 07/06/25. She saw ID 07/12/25 and they did not make any changes to the current treatment plan. She had surgery for wound debridement, Organogenesis Apligraf application #1 on and clary #2 on 07/06/25. We discussed staged graft application surgery. All risks and benefits were discussed including but not limited to: damage to blood vessels and nerves, bleeding, infection, wound complications, need for further surgery, implant/graft failure, need for removal of implant/graft, allergic reaction, prolonged or permanent swelling of the extremity, prolonged or permanent pain or deformity, temporary or permanent toe angulation/deformity, CRPS/RSD, DVT/PE, and anesthetic complications including anaphylaxis or . Patient understands if wound/graft gets infected, it could lead to prolonged oral or IV antibiotics or increased risk of worsening osteomyelitis, which could lead to possible loss of partial foot or even BKA. No guarantees were given. All questions fully answered. The patient verbalized understanding and agreed to proceed with surgery. Verbal and written consent was obtained. ? Operative findings:: Left foot open wound. 1st MTPJ incision has less edema and minimal erythema. Some excoriation secondary to itching to the dorsal lateral foot, this has improved. Overall some improvement in appearance with wound vac. No purulence, drainage, malodor or ascending cellulitis. Hallux is angulated medially. Exposed plate and one screw in the distal wound at the proximal phalanx level. There is minimal exposed screw. The phalanx bone distally was no longer exposed at the HIPJ level. The hardware was intact with no signs of screw loosening or backing out from the plate. Sharp excisional full thickness wound debridement with 15' blade, forceps, curette thru skin into subq into deep fascia. Post debridement: Left medial foot wound: 5% yellow fibrotic, 95% granular, 4.3 x 1.25 x 0.25cm. Minimal bleeding with debridement. No jhonny purulence expressed. Operative note:: On this date and time patient was deemed an appropriate surgical candidate. With informed consent signed, the patient was taken to the local procedure operating theater room. The patient was positioned supine. No anesthesia was induced. No tourniquet used. Left lower extremity was prepped and draped in normal sterile fashion. PICC placed, IV Vanco 1g held (getting daily home infusion). Left medial dorsal foot wound debridement: Sharp excisional full-thickness debridement with 15 blade, curette down through skin layer, subcutaneous tissue into/including deep fascia. Exposed proximal phalanx bone was more covered with exposed plate/less distal screw. No purulence or SOI noted. The skin edges were debrided with 15' blade, minimal bleeding noted. The wound was flushed with gentamicin irrigation. Skin cleansed with saline. Mastisol applied around the wound edges. Left foot application of Apligraf (Organogenesis wound graft): Graft was prepared in standard fashion. Graft was cut and place dorsally linearly over wound. The other piece of the graft was placed over the distal hallux horizontal. The entire graft (44sq cm) was utilized. The graft was placed over the open wound (and circumferentially around the surrounding skin as the graft was larger than the wound) and secured with Steri-Strips. Adaptic was applied over the graft. Application of wound vac: Black foam cut to size and applied over adaptic. A [employer] wound VAC was applied in standard technique at 125 mmHg medium continuous pressure. A gauze, Shaan were applied to left foot. The patient tolerated the procedure well, without complications. Materials: Organogenesis Aligraf wound graft x1 (44sq cm), [facility] Medical wound vac Discharge/Plan: Ok to discharge home when ready and vss. Patient is to maintain dressing clean dry and intact. Elevate on two pillows. Minimize weight bearing. Ideally PWB to heel in fracture boot/post op shoe with walker. Follow up on Friday for wound vac change. Follow up for planned staged surgery on 07/20/25: Left foot wound debridement, application of wound graft #4. Condition: stable Disposition: same day Complications:: None
[2025-07-13] MEDS: GENTAMICIN 80 MG/2 ML VIAL (09:40)
== END 2025-07-13 10:16 | disposition home or self-care (01) ==
PROVIDERS: PCP Nurse Practitioner; Visit Provider Podiatrist
PROC: (CPT 15004; principal; 2025-07-13 09:30)
DX: I87.2 Venous insufficiency (chronic) (peripheral) (principal); L97.525 Non-pressure chronic ulcer of other part of left foot with muscle involvement without evidence of necrosis; Z88.8 Allergy status to other drugs, medicaments and biological substances; Z91.040 Latex allergy status; Z88.5 Allergy status to narcotic agent; Z91.010 Allergy to peanuts; Z79.899 Other long term (current) drug therapy; M06.9 Rheumatoid arthritis, unspecified; G47.33 Obstructive sleep apnea (adult) (pediatric); M79.7 Fibromyalgia; I10 Essential (primary) hypertension; M20.40 Other hammer toe(s) (acquired), unspecified foot; M21.619 Bunion of unspecified foot; E66.811 Obesity, class 1; Z68.44 Body mass index [BMI] 60.0-69.9, adult
CPT/HCPCS: 15004; 15275; J1580; Q4101

== ENCOUNTER 2025-07-18 09:28 | Outpatient (CLI) | payer BC, SELFPAY ==
--- OUTSIDE RECORDS SUMMARY | 2025-07-18 09:30 | XMS_ITS | Encounter Summary ---
Author Organization [employer] ([place], [place], [place], [place]) Address [address] [place] [address] Care Team Providers Care Systems Programmer Analyst Name Role Phone Unavailable Primary Care Provider Unavailabl e Encounter Details Date Type Department Care Team (Late st Contact Info) Description 01/25/2021 Transcribed Document [facility] [place] [facility] [place] [address] ProviderLibrado MD [address] [place] [address] Social History Tobacco Use Types [...] - Librado ProviderMD - 01/25/2021 11:37 AM TOOL PLANER SET UP OPERATOR Meds to Bed Enrollment Entered On: 01/25/2021 11:37 EST Performed On: 01/25/2021 11:37 EST by Deisy Collins RN Meds to Bed Enrollment Patient Enrollment Decision: : No/do not enroll in meds to bed program Deisy Collins RN - 01/25/2021 11:37 EST Electronically signed by Dilia [facility] Conversion Industrial Workers Cerner at 03/21/2023 12:59 PM CDT documented in this encounter Plan of Treatment Not on file documented as of this encounter Visit Diagnoses Not on filedocumented in this encounter
--- OUTSIDE RECORDS SUMMARY | 2025-07-18 09:30 | XMS_ITS | Encounter Summary ---
Author Organization [employer] ([place], [place], [place], [place]) Address [address] [place] [address] Care Team Providers Care Business Services Tech Name Role Phone Unavailable Primary Care Provider Unavailabl e Encounter Details Date Type Department Care Team (Late st Contact Info) Description 03/21/2021 Transcribed Document [facility] [place] [address] ProviderLibrado MD [address] [place] [address] Social History Tobacco Use Types Packs/Day [...] COMPONENTS USED: Size 48 press-fit acetabular component [place] with a neutral poly liner to accept [...] the recovery room. Final condition was improved. /[id number] MD SIMIN Infante Jr/SHOBHA / SIMIN / MODL /[id number] documented in this encounter Plan of Treatment Not on file documented as of this encounter Visit Diagnoses Not on filedocumented in this encounter
--- OUTSIDE RECORDS SUMMARY | 2025-07-18 09:30 | XMS_ITS | Encounter Summary ---
Author Organization [employer] ([place], [place], [place]) Address [address] [place] [address] Care Team Providers Care City Council Member Name Role Phone Unavailable Primary Care Provider Unavailabl e Encounter Details Date Type Department Care Team (Late st Contact Info) Description 03/21/2021 Transcribed Document [facility] [place] [facility] [place] [address] ProviderLibrado MD [address] [place] [address] Social History Tobacco Use Types Packs/Day [...] ARI LOU OTR/[place] - 03/21/2021 11:45 EDT Screen Printer Goals, OT Other LTG Grid Goal #1 [...]
--- OUTSIDE RECORDS SUMMARY | 2025-07-18 09:30 | XMS_ITS | Encounter Summary ---
Author Organization [employer] ([place], [place], [place]) Address [address] [place] [address] Care Team Providers Care Food Production Machine Operator Name Role Phone Unavailable Primary Care Provider Unavailabl e Encounter Details Date Type Department Care Team (Late st Contact Info) Description 01/25/2021 Transcribed Document [facility] [place] Medicine [facility] [place] [address] ProviderLibrado MD [address] [place] [address] Social History Tobacco Use Types Packs/Day Years Used Date Smoking Tobacco: Never Assessed Comments Unknown Sex and Gender Information Value Date Recorded Sex Assigned at Not on file Legal Sex Female 1:10 PM CDT Gender Identity Not on file Sexual Orientation Not on file documented as of this encounter Miscellaneous Notes * Cerner Conversion Note - Librado ProviderMD - 01/25/2021 11:29 AM RETAIL ANALYST PAT Adult Entered On: 01/25/2021 11:35 EST [...] Source : Measured Height Entry Format : [place] Height, Feet : 5 ft(Converted to: 152 cm, 60 Inch) Height, Inches : 7 Inch(Converted to: 0 ft 7 Inch, 17.78 cm) Clinical Height : 170.18 cm Weight Source : Standing scale Weight Entry Format : [place] Clinical [facility] Weight : 99.09 kg Weight, Pounds : 218 lb Body Surface Area (BSA) : 2.1 m2 Body Mass Index : 34.2 kg/m2 (HI) [place] Body Weight : 61 kg Deisy Collins [...] Deisy Collins RN - 01/25/2021 11:29 EST [place] Suicide Severity Rating Scale (C-SSRS) CSSRS Past [...] : Sandip Tavares Emergency Contact #1 or [phone] Emergency Contact #1 Relationship : Spouse Emergency Contact #2 : . Emergency Contact #2 Phone Number : . Emergency Contact #2 Relationship : . Primary Language : Upper Sorbian Preferred Communication Mode : Verbal Communication Barrier : None Firer Glost [place]n Needed : No Deisy Collins RN - [...] Deisy Collins RN - 01/25/2021 11:29 EST Electronically signed by Kristina Dobbs Conversion Director Of Retail Operations Cerner at 03/21/2023 1:11 PM CDT documented in this encounter Plan of Treatment Not on file documented as of this encounter Visit Diagnoses Not on filedocumented in this encounter
--- OUTSIDE RECORDS SUMMARY | 2025-07-18 09:30 | XMS_ITS | Encounter Summary ---
Author Organization [employer] ([place], [place]) Address [address] [place] [address] Care Team Providers Care Physical Security Engineer Name Role Phone Unavailable Primary Care Provider Unavailabl e Encounter Details Date Type Department Care Team (Late st Contact Info) Description 03/22/2021 Transcribed Document [facility] [place] [address] [place] [address] ProviderLibrado MD [address] [place] [address] Social History Tobacco Use Types [...] 03/22/2021 11:38 EDT Electronically signed by Dilia [facility] Conversion Group Burner Machine Cerner at 03/21/2023 1:05 PM CDT documented in this encounter Plan of Treatment Not on file documented as of this encounter Visit Diagnoses Not on filedocumented in this encounter
--- OUTSIDE RECORDS SUMMARY | 2025-07-18 09:30 | XMS_ITS | Encounter Summary ---
Author Organization [employer] ([place]) Address [address] [place] [address] Care Team Providers Care Retail Product Demo Specialist Name Role Phone Unavailable Primary Care Provider Unavailabl e Encounter Details Date Type Department Care Team (Late st Contact Info) Description 03/21/2021 Transcribed Document [facility] [place] Medicine [facility] [place] [address] ProviderLibrado MD [address] [place] [address] Social History Tobacco Use Types Packs/Day [...] JOIE TAVARES/Sex: 1960 Female Med Rec #: [id number] Physician: DARY GAMEZ JR, JR, MD-ORT Financial #: [id number] Pt. Type: O Room/Bed: EAS/1 Admit/Disch: 03/21/21 04:39:00 - Institution: [facility] PACU Case Times Entry 1 In PACU I 03/21/21 09:16:00 Ready for PACU 03/21/21 10:10:00 Discharge Discharge from PACU 03/21/21 10:10:00 I Last Modified By: MAN GOODMAN 03/21/21 10:10:56 [facility] PACU Case Times Audit 03/21/21 10:10:56 [employer] Learning Support Teacher: VALERIA Modifier: COLEMAM <+> 1 Ready for PACU Discharge <+> 1 Discharge from PACU I Finalized By: MAN GOODMAN Document Signatures Signed By: MAN GOODMAN 03/21/21 10:11 Electronically signed by Dilia [facility] Conversion Bus Escort Cerner at 03/21/2023 1:17 PM CDT documented in this encounter Plan of Treatment Not on file documented as of this encounter Visit Diagnoses Not on filedocumented in this encounter
--- OUTSIDE RECORDS SUMMARY | 2025-07-18 09:30 | XMS_ITS | Encounter Summary ---
Author Organization [employer] ([place], [place], [place], [place]) Address [address] [place] [address] Care Team Providers Care Flight Test Supervisor Name Role Phone Unavailable Primary Care Provider Unavailabl e Encounter Details Date Type Department Care Team (Late st Contact Info) Description 03/22/2021 Transcribed Document [facility] [place] Medicine [facility] [place] [address] ProviderLibrado MD [address] [place] [address] Social History Tobacco Use Types [...] Barley. Bulgur wheat. Millet. Bran muffins. Popcorn. [place] wafer crackers. Vegetables Sweet potatoes. Spinach. Kale. Artichokes. Cabbage. Broccoli. Green peas. Carrots. Squash. Fruits Berries. Pears. Apples. Oranges. Avocados. Prunes and raisins. Dried figs. Meats and Other Protein Sources [place], kidney, [place], and soy beans. Split peas. [...] humza has 11 g of protein. ?? Schwertner seeds ??? 1 oz has 5.5 g [...] floor. ?? Place frequently used items in mqji-ol-ciolc places ?? Keep electrical cables out of [...] ?? Using the bathroom. ?? Using household senior sous chef or toxic chemicals. ?? Touching or taking [...] all positive cases are reported through the [facility] health department and the [place] Department for [...] and need to call 911, notify the hay rake operator that you have, or think you [...] clean your hands with an alcohol-based hand prop making supervisor that contains at least 60% alcohol. Clean your hands often. ??? Wash hands: Wash your hands often with soap and water for at least 20 seconds when visibly dirty. This is especially important after blowing your nose, coughing or sneezing, and going to the bathroom, and before eating or preparing food. ??? Hand prop making supervisor: Use an alcohol-based hand prop making supervisor with at least 60% alcohol, covering all [...] and water or put them in the billboard poster helper. Clean all high-touch surfaces every day. Clean [...] or body fluids on them. ??? Household senior sous chef and disinfectants: Clean the area or item [...] list of disinfectants can be found here: https://www.epa.gov/pesticide-registration/dlfw-q-kcyuefutyvtlu-zil-yxgjlzw-gs rs-cov-2 documented in this encounter Plan of Treatment Not on file documented as of this encounter Visit Diagnoses Not on filedocumented in this encounter
--- OUTSIDE RECORDS SUMMARY | 2025-07-18 09:30 | XMS_ITS | Encounter Summary ---
Author Organization [employer] ([place], [place], [place], [place]) Address [address] [place] [address] Care Team Providers Care Field Artillery Fire Control Man Name Role Phone Unavailable Primary Care Provider Unavailabl e Encounter Details Date Type Department Care Team (Late st Contact Info) Description 03/22/2021 Transcribed Document [facility] [place] [facility] [place] [address] ProviderLibrado MD [address] [place] [address] Social History Tobacco Use Types Packs/Day [...] Phone Number: [facility] [address], [address] Patient Offered Choice/Affiliations Explained : [...]
--- OUTSIDE RECORDS SUMMARY | 2025-07-18 09:30 | XMS_ITS | Encounter Summary ---
Author Organization [employer] ([place]) Address [address] [place] [address] Care Team Providers Care Floor Worker Well Service Name Role Phone Unavailable Primary Care Provider Unavailabl e Encounter Details Date Type Department Care Team (Late st Contact Info) Description 03/21/2021 Transcribed Document [facility] [place] Family Medicine [facility] [place] [address] ProviderLibrado MD [address] [place] [address] Social History Tobacco Use Types [...] replacement, right; Right hip pain; HTN (hypertension); OYANA on CPAP; RA (rheumatoid arthritis); Migraine; Impaired [...] Oral, Q4H phenol 1.4% throat spray 5 [place], Oral, Q2H promethazine 25 mg tab 12.5 [...] HTN, heart disease Procedure history: tubal. Appendectomy; (91567). trigger finger. arthroscopy both knees. left total knee with Titanium. right CTR. cysto lithotripsy. several hammertoe/bunion surgeries. right wrist joint fusion. facet injects and rhizotomy. heart cath and lexiscan stress test 2010. retina; vein injections monthly. RTKA with Titanium. Colonoscopy ([id number]). Cystoscopy ([id number]). Bilateral Cataract Removal with IOL Implants. Lithotripsy (343156535). Social History Patient is and has no children, she quit [employer] on 01/10/1993.Denies drinking alcohol. Physical Examination VS/Measurements [...] swelling, No deformity, Normal gait. Integumentary: Warm, [place], Intact, No pallor, No rash, WOUND STABLE. [...]
--- OUTSIDE RECORDS SUMMARY | 2025-07-18 09:30 | XMS_ITS | Encounter Summary ---
Author Organization [employer] ([place], [place], [place], [place]) Address [address] [place] [address] Care Team Providers Care Tuber Operator Name Role Phone Unavailable Primary Care Provider Unavailabl e Encounter Details Date Type Department Care Team (Late st Contact Info) Description 03/21/2021 Transcribed Document [facility] Family Medicine [facility] [place] [address] ProviderLibrado MD [address] [place] [address] Social History Tobacco Use Types Packs/Day [...] JOIE TAVARES/Sex: 1960 Female Med Rec #: [id number] Physician: DARY GAMEZ JR, JR, MD-ORT Financial #: [id number] Pt. Type: O Room/Bed: EAS/1 Admit/Disch: 03/21/21 04:39:00 - Institution: [facility] [place] PreOp Case Times Entry 1 In Preop 03/21/21 05:20:00 Ready for Holding n/a Room Patient Ready for 03/21/21 06:35:00 Surgery Patient Out of Preop 03/21/21 07:26:00 Patient Out of n/a Holding Room Last Modified By: OMI SELBY 03/21/21 09:40:02 [facility] PreOp Case Times Audit 03/21/21 09:40:02 [place] Vessel Pilot: EDWARD Modifier: CATLETDD <+> 1 Patient Out of Preop Finalized By: OMI SELBY Document Signatures Signed By: OMI SELBY 03/21/21 09:40 Electronically signed by Dilia [facility] Conversion Taxonomist Cerner at 03/21/2023 12:55 PM CDT documented in this encounter Plan of Treatment Not on file documented as of this encounter Visit Diagnoses Not on filedocumented in this encounter
--- OUTSIDE RECORDS SUMMARY | 2025-07-18 09:30 | XMS_ITS | Encounter Summary ---
Author Organization [employer] ([place], [place], [place], [place]) Address [address] [place] [address] Care Team Providers Care Community Health Planning Director Name Role Phone Unavailable Primary Care Provider Unavailabl e Encounter Details Date Type Department Care Team (Late st Contact Info) Description 03/22/2021 Transcribed Document [facility] [place] [address] [place] [address] ProviderLibrado MD [address] [place] [address] Social History Tobacco Use Types [...] EDT Chloraseptic Menthol 1.4% topical spray: 5 [place], Oral, [place], Q2H, PRN for Sore Throat, Routine, Start [...] constipation, # 60 Tab, 0 Refill(s), Pharmacy: [facility], 170.18, cm, 03/21/21 10:42:00 EDT, CLINICALHEIGHT, [...] Oral, Q4H phenol 1.4% throat spray 5 [place], Oral, Q2H promethazine 25 mg tab 12.5 [...] constipation, # 60 Tab, 0 Refill(s), Pharmacy: [facility], 170.18, cm, 03/21/21 10:42:00 EDT, CLINICALHEIGHT, [...]
--- OUTSIDE RECORDS SUMMARY | 2025-07-18 09:30 | XMS_ITS | Encounter Summary ---
Author Organization [employer] ([place]) Address [address] [place] [address] Care Team Providers Care Database Development Project Manager Name Role Phone Unavailable Primary Care Provider Unavailabl e Encounter Details Date Type Department Care Team (Late st Contact Info) Description 03/21/2021 Transcribed Document [facility] [place] [facility] [place] [address] ProviderLibrado MD [address] [place] [address] Social History Tobacco Use Types Packs/Day [...] Low Spiritual Framework : Integrated, provides strength/resource Yarsani Preference : Episcopalian DAYNA OCONNOR Chaplain-Non Cert - 03/21/2021 7:29 EDT documented in this encounter Plan of Treatment Not on file documented as of this encounter Visit Diagnoses Not on filedocumented in this encounter
--- OUTSIDE RECORDS SUMMARY | 2025-07-18 09:30 | XMS_ITS | Encounter Summary ---
Author Organization [employer] ([place]) Address [address] [place] [address] Care Team Providers Care Disk Recordist Name Role Phone Unavailable Primary Care Provider Unavailabl e Encounter Details Date Type Department Care Team (Late st Contact Info) Description 03/21/2021 Transcribed Document [facility] [place] Family Medicine [address] [place] [address] ProviderLibrado MD [address] [place], [place] [id number] Social History Tobacco Use Types Packs/Day Years [...]
--- OUTSIDE RECORDS SUMMARY | 2025-07-18 09:30 | XMS_ITS | Encounter Summary ---
Author Organization [employer] ([place]) Address [address] [place] [address] Care Team Providers Care Career And Transition Teacher Name Role Phone Unavailable Primary Care Provider Unavailabl e Encounter Details Date Type Department Care Team (Late st Contact Info) Description 03/21/2021 Transcribed Document [facility] [place] [facility] [place] [address] ProviderLibrado MD [address] [place] [address] Social History Tobacco Use Types Packs/Day [...] Source : Measured Height Entry Format : [place] Height, Feet : 5 ft(Converted to: 152 cm, 60 Inch) Height, Inches : 7 Inch(Converted to: 0 ft 7 Inch, 17.78 cm) Clinical Height : 170.18 cm Weight Source : Standing scale Weight Entry Format : [place] Clinical Dosing Weight : 93.18 kg Weight, Pounds : 205 lb Body Surface Area (BSA) : 2.05 m2 Body Mass Index : 32.2 kg/m2 (HI) [place] Body Weight : 61 kg BILLY ALFARO [...] BILLY ALFARO RN - 03/21/2021 6:36 EDT [place] Suicide Severity Rating Scale (C-SSRS) CSSRS Past [...] : Sandip Tavares Emergency Contact #1 or [phone] Emergency Contact #1 Relationship : Spouse Emergency Contact #2 : . Emergency Contact #2 Phone Number : . Emergency Contact #2 Relationship : . Information Obtained From : Patient Primary Language : Danish Preferred Communication Mode : Verbal Communication Barrier : None Computer Help Desk Representative Needed : No Currently Lactating : No [...]
--- OUTSIDE RECORDS SUMMARY | 2025-07-18 09:30 | XMS_ITS | Encounter Summary ---
Author Organization [employer] ([place], [place], [place], [place]) Address [address] [place] [address] Care Team Providers Care Linoleum Floor Layer Name Role Phone Unavailable Primary Care Provider Unavailabl e Encounter Details Date Type Department Care Team (Late st Contact Info) Description 03/21/2021 Transcribed Document [facility] [place] [facility] [place] [address] ProviderLibrado MD [address] [place] [address] Social History Tobacco Use Types Packs/Day [...] JOIE TAVARES/Sex: 1960 Female Med Rec #: [id number] Physician: DARY GAMEZ JR, JR, MD-ORT Financial #: [id number] Pt. Type: O Room/Bed: EAS/1 Admit/Disch: 03/21/21 04:39:00 - Institution: [facility] IntraOp Case Attendance Entry 1 Entry 2 Entry 3 Case Attendee DARY GAMEZ JR, JR, WHITAKER, CARLY, Davis, Stephen J, RNFA MD-ORT SHIPPING TECHNICIAN-ANS Role Performed Surgeon/Proceduralist, SHIPPING TECHNICIAN/Nurse Wire Threader NAILA First Time In 03/21/21 07:28:00 03/21/21 [...] Performed Scrub, First Scrub, Second Cell Saver Control Room Supervisor Time In 03/21/21 07:28:00 03/21/21 07:28:00 03/21/21 [...] ATTENDEE #2 Sarah Biggs LONGSWORTH, GARY, MAGALYS Book Mender Role Performed Vendor Med Care Manager Senior Application Security Consultant, First Time In 03/21/21 07:28:00 03/21/21 07:35:00 [...] Case Attendee FAITH ESCOBEDO RN Role Performed Senior Application Security Consultant, Second Time In 03/21/21 09:04:00 Time Out 03/21/21 09:15:00 Procedure Hip Total Anterior Approach(Right) Other Attendee Superficial Wound Closed By: Last Modified By: KAMERON CORREA RN 03/21/21 09:14:09 [facility] IntraOp Case Attendance Audit 03/21/21 09:14:09 Shale Miner: LONGGA Modifier: LONGGA 1 <+> Time Out [...] Procedure Hip Total Anterior Approach(Right) 03/21/21 09:09:17 Shale Miner: LONGGA Modifier: LONGGA 9 <+> Time Out 9 <*> Procedure Hip Total Anterior Approach(Right) <+> 10 Case Attendee <+> 10 Role Performed <+> 10 Time In <+> 10 Procedure 03/21/21 07:55:56 Shale Miner: LONGGA Modifier: LONGGA <+> 9 Case Attendee <+> 9 Role Performed <+> 9 Time In <+> 9 Procedure 03/21/21 07:53:41 Shale Miner: LONGGA Modifier: LONGGA 6 <*> Time In 03/21/21 07:28:00 6 <*> Procedure Hip Total Anterior Approach(Right) 03/21/21 07:53:18 Shale Miner: LONGGA Modifier: LONGGA <+> 1 Procedure 2 <*> Procedure Hip Total Anterior Approach(Right) 3 <*> Procedure Hip Total Anterior Approach(Right) 4 <*> Procedure Hip Total Anterior Approach(Right) 5 <*> Procedure Hip Total Anterior Approach(Right) 6 <+> Time In 6 <*> Procedure Hip Total Anterior Approach(Right) 7 <*> Procedure Hip Total Anterior Approach(Right) 8 <*> Procedure Hip Total Anterior Approach(Right) 03/21/21 07:43:00 Shale Miner: LONGGA Modifier: LONGGA <+> 1 Time In [...] [facility] IntraOp Case Times Audit 03/21/21 09:14:07 Shale Miner: LONGGA Modifier: LONGGA <+> 1 Out Room Time <+> 1 Stop Time 03/21/21 09:13:29 Shale Miner: LONGGA Modifier: LONGGA <+> 1 Stop Time 03/21/21 07:53:13 Shale Miner: LONGGA Modifier: LONGGA <+> 1 Start Time [...] IntraOp Dressing and Packing Audit 03/21/21 08:58:36 Shale Miner: MARY Modifier: GIRISHGA 1 <-> Wound Dressing [...] IntraOp Fire Risk Assessment Audit 03/21/21 08:09:15 Shale Miner: MARY Modifier: LONGGA <+> 1 Fire Risk Assessment Verified By <+> 1 Fire Risk Assessment Verified Date/Time <+> 1 High Risk Protocol Implemented [facility] IntraOp General Case Voting Machine Mechanic 1 Case Information OR OR 05 [facility] Case Level 1 Room Verified Yes Wound [...] D HIP STEM ACCOLADE II Identification 48MM [id number] Description Implant Quantity 1 1 1 Implant Site RIGHT HIP RIGHT HIP RIGHT HIP Implant Identification Model Number Implant Identification Serial Number Implant [id number] Identification Lot Number Implant Alpine Ortho Cap Alpine:Nikita Nikita:Alpine Identification Orthopaedics Orthopaedics Mercerizing Range Controller Name: Implant [id number] Identification Catalog Number Implant Size Implant Has an Yes Yes Yes Expiration Date Implant Expiration 10/18/25 11/02/25 12/23/25 Date Wasted Radioactive Material Time Implanted Tissue Implant Continue for Tissue Implant Documentation Tissue Identification Number Graft Prep Per Mercerizing Range Controller Instructions: Tissue Preparation Method: Reconstitution Solution: Reconstitution Solution Lot Number Reconstitution Solution Expiration Date: Thawing Solution Thawing Solution Lot Number Thawing Solution Expiration Date Preparation Materials, Other Preparation Materials, Other Lot Number Preparation Materials, Other Expiration Date Tissue Prepared/Processed By Mercerizing Range Controller Paperwork Completed Implant Type Comment Last Modified By: KAMERON CORREA RN LONGSWORTH, GARY, RN LONGSWORTH, GARY, RN 03/21/21 08:19:39 03/21/21 08:20:33 03/21/21 08:43:38 Entry 4 Type Implant (Synthetic) Implant Log Implant Type Hardware Tissue Implant Type Implant HEAD FEM BIOLOX V40 Identification [id number] Description Implant Quantity 1 Implant Site RIGHT HIP Implant Identification Model Number Implant Identification Serial Number Implant [id number] Identification Lot Number Implant Nikita:Nikita Identification Orthopaedics Mercerizing Range Controller Name: Implant [id number] Identification Catalog Number Implant Size Implant Has an Yes Expiration Date Implant Expiration 09/27/25 Date Wasted Radioactive Material Time Implanted Tissue Implant Continue for Tissue Implant Documentation Tissue Identification Number Graft Prep Per Mercerizing Range Controller Instructions: Tissue Preparation Method: Reconstitution Solution: Reconstitution Solution Lot Number Reconstitution Solution Expiration Date: Thawing Solution Thawing Solution Lot Number Thawing Solution Expiration Date Preparation Materials, Other Preparation Materials, Other Lot Number Preparation Materials, Other Expiration Date Tissue Prepared/Processed By Mercerizing Range Controller Paperwork Completed Implant Type Comment Last Modified By: KAMERON CORREA RN 03/21/21 08:47:34 [facility] IntraOp Implant Log Audit 03/21/21 08:47:34 Shale Miner: MARY Modifier: MARY <+> 4 Implant Identification Description <+> 4 Implant Identification Lot Number <+> 4 Implant Identification Mercerizing Range Controller Name: <+> 4 Implant Expiration Date <+> 4 Implant Site <+> 4 Implant Quantity <+> 4 Implant Identification Catalog Number <+> 4 Implant Type <+> 4 Implant Has an Expiration Date <+> 4 Type 03/21/21 08:43:38 Shale Miner: MARY Modifier: LONGGA <+> 3 Implant Identification Description <+> 3 Implant Identification Lot Number <+> 3 Implant Identification Mercerizing Range Controller Name: <+> 3 Implant Expiration Date <+> 3 Implant Site <+> 3 Implant Quantity <+> 3 Implant Identification Catalog Number <+> 3 Implant Type <+> 3 Implant Has an Expiration Date <+> 3 Type 03/21/21 08:20:33 Shale Miner: LONGGA Modifier: LONGGA <+> 2 Implant Identification Description <+> 2 Implant Identification Lot Number <+> 2 Implant Identification Mercerizing Range Controller Name: <+> 2 Implant Expiration Date <+> [...] 1000units/ml SEALR AQUAMANTYS BIPLR CLONIDINE-10ML 10ml - [id number] Combo Med List 1 - Combo Med Time Administered Route of CELLSAVER PHILOSOPHY PROFESSOR INJECTION, RIGHT HIP Administration Dose Dose 36340 0.8 Unit of Measure units ml Volume [...] 0.5% 30ml vial Xylocaine 1% w/ - [id number] epinephrine 1:200,000 30ml vial - [id number] Combo Med List 1 - Combo Med [...] Yes Checked Positioning Devices Arm Board, Table, [place], Safety Strap, Chest Device Position HANA TABLE; PERINEAL POST Positioned By SIS SHAH CRNA-ANS, DARY GAMEZ JR, JR, MD-ORT, KAMERON CORREA, MAGALYS, Mati Fuentes, CREDENTIALING ANALYST Position Verified Positioning Yes Verified by Anesthesia [...] [facility] IntraOp Skin Prep Audit 03/21/21 10:21:05 Shale Miner: MARY Modifier: LONGGA 1 <*> Prep Agents [...] [facility] IntraOp Surgical Procedures Audit 03/21/21 09:13:33 Shale Miner: LONGGA Modifier: LONGGA <+> 1 Stop [facility] IntraOp Temp Regulation Devices Entry 1 Temp Regulation Temperature Conductive warming Regulation Device device placed over patient Temperature 4764 Regulation Device Serial/Unit Number Temperature Upper body Regulation Site Temperature Device 43 Setting Temperature SIS SHAH, Regulation Device SHIPPING TECHNICIAN-ANS Applied by Last Modified By: KAMERON CORREA [...] Fluoroscopy Fluoroscopy Type C-Arm Site RIGHT HIP Pin Ball Machine Mechanic Name Sarah Biggs, Book Mender Protective Devices Yes Used Last Modified By: [...]
--- OUTSIDE RECORDS SUMMARY | 2025-07-18 09:30 | XMS_ITS | Encounter Summary ---
Author Organization [employer] ([place], [place], [place], [place]) Address [address] [place] [address] Care Team Providers Care Retail Sales Associate Seasonal Name Role Phone Unavailable Primary Care Provider Unavailabl e Encounter Details Date Type Department Care Team (Late st Contact Info) Description 03/21/2021 Transcribed Document [facility] [place] [facility] [place] [address] ProviderLibrado MD [address] [place] [address] Social History Tobacco Use Types Packs/Day [...] On: 03/22/2021 9:27 EDT by PABLO ABDALLA, SPRING CRATER General Information, PT Visit Type, PT : [...] PABLO ABDALLA PTA - 03/22/2021 10:05 EDT Retirement Goals Other PT LTG Grid Goal #1 [...] EDT 03/22/2021 EDT 03/22/2021 EDT PABLO ABDALLA, SPRING CRATER - 03/22/2021 10:05 EDT RM PABLO Frederick, SPRING CRATER - 03/22/2021 10:05 EDT RM PABLO [place], SPRING CRATER - 03/22/2021 10:05 EDT Treatment Note Subjective [...] for Treatment : Anticipated d/c home from [facility] today. PABLO ABDALLA, BERNARDO - 03/22/2021 10:05 EDT Pain Assessment Pain Scaled Used : 0-10 Pain scale Pain Score Pre-Intervention : 0 PABLO ABDALLA, BERNARDO - 03/22/2021 10:05 EDT Image 1 - Images currently included in the form version of this document have not been included in the text rendition version of the form. [place] PT Charges SPRING CRATER PT Therap. Exercise 15 min-SPRING CRATER : 1 Gait Training Each 15 Min-SPRING CRATER : 1 PABLO ABDALLA, SPRING CRATER - 03/22/2021 10:05 EDT documented in this encounter Plan of Treatment Not on file documented as of this encounter Visit Diagnoses Not on filedocumented in this encounter
--- OUTSIDE RECORDS SUMMARY | 2025-07-18 09:30 | XMS_ITS | Encounter Summary ---
Author Organization [employer] ([place], [place], [place], [place]) Address [address] [place] [address] Care Team Providers Care Corporate Strategy Analyst Name Role Phone Unavailable Primary Care Provider Unavailabl e Encounter Details Date Type Department Care Team (Late st Contact Info) Description 03/22/2021 Transcribed Document [facility] [place] [address] ProviderLibrado MD [address] [place] [address] Social History Tobacco Use Types Packs/Day [...] 13:07 EDT Transporter Signature : Columba Gold [facility] Unit Coord Patient Disposition, General : Discharge [...]
--- OUTSIDE RECORDS SUMMARY | 2025-07-18 09:30 | XMS_ITS | Encounter Summary ---
Author Organization [employer] ([place], [place], [place], [place]) Address [address] [place] [address] Care Team Providers Care Black Pickler Name Role Phone Unavailable Primary Care Provider Unavailabl e Encounter Details Date Type Department Care Team (Late st Contact Info) Description 03/21/2021 Transcribed Document [facility] [place] [address] [place] [address] ProviderLibrado MD [address] [place] [address] Social History Tobacco Use Types [...]
--- OUTSIDE RECORDS SUMMARY | 2025-07-18 09:30 | XMS_ITS | Referral Summary ---
Author Organization [employer] ([place], [place], [place], [place]) Address [address] [place] [address] Care Team Providers Care Schedule Planning Manager Name Role Phone Unavailable Primary Care [...]
--- OUTSIDE RECORDS SUMMARY | 2025-07-18 09:30 | XMS_ITS | Encounter Summary ---
Author Organization [employer] ([place], [place], [place], [place]) Address [address] [place] [address] Care Team Providers Care Credit Control Clerk Name Role Phone Unavailable Primary Care Provider Unavailabl e Encounter Details Date Type Department Care Team (Late st Contact Info) Description 03/22/2021 Transcribed Document [facility] [place] [facility] [place] [address] ProviderLibrado MD [address] [place] [address] Social History Tobacco Use Types [...] EugeneD Electronically signed by Kristina Dobbs Conversion Crop Insurance Claims Adjuster Cerner at 03/21/2023 1:10 PM CDT documented in this encounter Plan of Treatment Not on file documented as of this encounter Visit Diagnoses Not on filedocumented in this encounter
--- OUTSIDE RECORDS SUMMARY | 2025-07-18 09:30 | XMS_ITS | Clinical Summary ---
Author Organization [facility] Address [address] [place] [address] Phone Care Team Providers Care Extrusion Machine Operator Name Role Phone Marcio STILES, Brian Kate [phone] [ ] Conditions or Problems Problem Name Problem Code Onset Date Status Entry Date Provider Comment Standard Description Annotate Eschar 908748189 (SNOMED CT) Active Brian Buckley MD Skin eschar Hematoma of arm 312622362 (SNOMED CT) Active Brian Buckley MD Hematoma Other obesity due to excess calories 043229657 (SNOMED CT) Active Yasmin Minor Simple obesity Gram negative infection 661358021 (SNOMED CT) Active Brian Buckley MD 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-negative bacteria Wound infection 74854128 (SNOMED CT) Active Brian Buckley MD Local infection of wound Knee, right, initial encounter(s) , 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 T84.53xA (ICD-10-CM) Active Clare Hemal Infection and 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 prosthesis, initial encounter Effusion, right knee M25.461 (ICD-10-CM) Active Clare Hemal Effusion, right knee Cellulitis of RLE 432285043 (SNOMED CT) Active Clare Hemal Cellulitis of lower limb Medications Medication Instructions Start Date Stop Date Generic Name NDC Provider BACTRIM DS 800-160 MG TABS Take 1 tablet by mouth twice a day 5 sulfamethoxazo le-trimethopri m 09929131059 Brian Buckley MD CLINDAMYCIN HCL 150 MG CAPS by mouth clindamycin hcl 64577510222 Lois Suarez DIFLUCAN 150 MG TABS by mouth fluconazole 57071495440 Lois Suarez ALLOPURINOL 100 MG TABS by mouth once a day allopurinol 19712746635 Yasmin Minor CEFADROXIL 500 MG CAPS by mouth three times a day cefadroxil 97557148869 Yasmin Minor CLINDAMYCIN HCL 150 MG CAPS by mouth clindamycin hcl 62510457946 Yasmin Minor DICYCLOMINE HCL 20 MG TABS by mouth dicyclomine 05314210808 Yasmin Minor DIFLUCAN 150 MG TABS by mouth fluconazole 92048656372 Yasmin Minor DOXYCYCLINE HYCLATE 100 MG CAPS by mouth twice a day doxycycline hyclate 87658929093 Yasmin Minor FUROSEMIDE 40 MG TABS by mouth once a day furosemide 94530394757 Yasmin Minor LORATADINE 10 MG TABS by mouth once a day loratadine 60261339730 Yasmin Minor LOSARTAN POTASSIUM 25 MG TABS by mouth once a day losartan 69917325545 Yasmin Minor MELOXICAM 15 MG TABS by mouth once a day meloxicam 79251766693 Yasmin Minor METOPROLOL SUCCINATE ER 100 MG [id number]-GUM by mouth twice a day metoprolol succinate 58490023798 Yasmin Minor MONTELUKAST SODIUM 10 MG TABS by mouth montelukast 75848779071 Yasmin Minor OSTEO BI-FLEX ONE PER DAY TABS by mouth once a day glucosamine-d3 -boswellia serr 05361728242 Yasmin Minor Medications Administered No information available. [...] Procedures Code Procedure Name Date Entry Date CPT-46947 CMP CPT-82298 Sedimentation Rate (ESR) 202 02/02/09 CPT-86977 C- reactive protein N9489a,[id number] CBC with Differential 2022 CPT-44047 CMP CPT-88083 C- reactive protein [id number] CBC with Differential 2022 CPT-92944 Sedimentation Rate (ESR) 202 02/01/25 Vital Signs [...]
--- OUTSIDE RECORDS SUMMARY | 2025-07-18 09:31 | XMS_ITS | Encounter Summary ---
Author Organization [employer] ([place], [place], [place], [place]) Address [address] [place] [address] Care Team Providers Care Table Assembler Metal Name Role Phone Unavailable Primary Care Provider Unavailabl e Encounter Details Date Type Department Care Team (Late st Contact Info) Description 03/22/2021 Transcribed Document [facility] [place] [address] [place] [address] ProviderLibrado MD [address] [place] [address] Social History Tobacco Use Types [...] Historical ProviderMD - 03/22/2021 2:00 AM CDT Station Worker Details Entered On: 03/22/2021 1:18 EDT Performed [...]
--- OUTSIDE RECORDS SUMMARY | 2025-07-18 09:31 | XMS_ITS | Encounter Summary ---
Author Organization [employer] ([place], [place], [place]) Address [address] [place] [address] Care Team Providers Care Materials Assistant Name Role Phone Unavailable Primary Care Provider Unavailabl e Encounter Details Date Type Department Care Team (Late st Contact Info) Description 03/22/2021 Transcribed Document [facility] [place] [facility] [place] [address] ProviderLibrado MD [address] [place] [address] Social History Tobacco Use Types [...]
--- OUTSIDE RECORDS SUMMARY | 2025-07-18 09:31 | XMS_ITS | Encounter Summary ---
Author Organization [employer] ([place]) Address [address] [place] [address] Care Team Providers Care Clean Out Driller Name Role Phone Unavailable Primary Care Provider Unavailabl e Encounter Details Date Type Department Care Team (Late st Contact Info) Description 03/21/2021 Transcribed Document [facility] [place] [facility] [place] [address] ProviderLibrado MD [address] [place] [address] Social History Tobacco Use Types Packs/Day [...] : Sandip Tavares Emergency Contact #1 or [phone] Emergency Contact #1 Relationship : Spouse Emergency Contact #2 : . Emergency Contact #2 Phone Number : . Emergency Contact #2 Relationship : . Information Obtained From : Patient Primary Language : Luxembourger Preferred Communication Mode : Verbal Communication Barrier : None Payroll Benefits Clerk Needed : No Currently Lactating : No [...] Level : 46 or > High Risk [place] Fall Interventions : Adequate lighting, Assistive devices [...] Source : Measured Height Entry Format : [place] Height, Feet : 5 ft(Converted to: 152 cm, 60 Inch) Height, Inches : 7 Inch(Converted to: 0 ft 7 Inch, 17.78 cm) Clinical Height : 170.18 cm Weight Source : Standing scale Weight Entry Format : [place] Clinical Dosing Weight : 93.18 kg Weight, Pounds : 205 lb Body Surface Area (BSA) : 2.05 m2 Body Mass Index : 32.2 kg/m2 (HI) [place] Body Weight : 61 kg Beatrice Torres [...] Beatrice Torres RN - 03/21/2021 10:42 EDT [place] Suicide Severity Rating Scale (C-SSRS) CSSRS Past [...] Beatrice Torres RN - 03/21/2021 10:42 EDT Electronically signed by Kristina Dobbs Conversion Family Medicine Physician Assistant Cerner at 03/21/2023 12:53 PM CDT documented in this encounter Plan of Treatment Not on file documented as of this encounter Visit Diagnoses Not on filedocumented in this encounter
--- OUTSIDE RECORDS SUMMARY | 2025-07-18 09:31 | XMS_ITS | Encounter Summary ---
Author Organization [facility] ([place], [place], [place], [place]) Address [address] [place] [address] Care Team Providers Care Board Catcher Name Role Phone Unavailable Primary Care Provider Unavailabl e Encounter Details Date Type Department Care Team (Late st Contact Info) Description 03/22/2021 Transcribed Document [facility] [place] [facility] [address] ProviderLibrado MD [address] [place] [address] Social History Tobacco Use Types Packs/Day [...] : Sandip Tavares Emergency Contact #1 or [phone] Emergency Contact #1 Relationship : Spouse Emergency [...] Referral sent via Norberto. patient also choose [facility] for her outpatient PT. DME: patient has a Frw and raised toilet seat. CM: no further CM needs identifed. DOC: designation of choice sined and placed in chart. TRANS: to transport patient home. LASAHE LUGO RN - 03/22/2021 11:23 EDT documented in this encounter Plan of Treatment Not on file documented as of this encounter Visit Diagnoses Not on filedocumented in this encounter
--- OUTSIDE RECORDS SUMMARY | 2025-07-18 09:31 | XMS_ITS | Encounter Summary ---
Author Organization [employer] ([place], [place], [place], [place]) Address [address] [place] [address] Care Team Providers Care Civil Engineering Intern Name Role Phone Unavailable Primary Care Provider Unavailabl e Encounter Details Date Type Department Care Team (Late st Contact Info) Description 03/22/2021 Transcribed Document [facility] [place] P[facility] to [facility] [address] ProviderLibrado MD [address] [place] [address] Social History Tobacco Use Types [...]
--- OUTSIDE RECORDS SUMMARY | 2025-07-18 09:31 | XMS_ITS | Clinical Summary ---
Author Organization [employer] ([place], [place], [place], [place]) Address [address] [place] [address] Care Team Providers Care Software Applications Engineer Name Role Phone Unavailable Primary Care [...]
--- OUTSIDE RECORDS SUMMARY | 2025-07-18 09:31 | XMS_ITS | Encounter Summary ---
Author Organization [employer] ([place], [place], [place], [place]) Address [address] [place] [address] Care Team Providers Care Wood Repatcher Name Role Phone Unavailable Primary Care Provider Unavailabl e Encounter Details Date Type Department Care Team (Late st Contact Info) Description 03/08/2021 Transcribed Document [facility] [place] [facility] [place] [address] ProviderLibrado MD [facility] [place] [address] Social History Tobacco Use Types [...]
--- OUTSIDE RECORDS SUMMARY | 2025-07-18 09:31 | XMS_ITS | Encounter Summary ---
Author Organization [employer] ([place], [place], [place], [place]) Address [address] [place] [address] Care Team Providers Care Supervisor Typesetting Name Role Phone Unavailable Primary Care Provider Unavailabl e Encounter Details Date Type Department Care Team (Late st Contact Info) Description 03/22/2021 Transcribed Document [facility] [place] [facility] [place] [address] ProviderLibrado MD [address] [place] [address] Social History Tobacco Use Types [...] Librado ProviderMD - 03/22/2021 12:19 PM CDT [place] [id number] JOIE HAQ :1960 Visit Time:03/21/2021 Your Visit [...] Instructions From Your Care Team Community Services: [facility] Physical Therapy Home Health Services: [facility] Medical Equipment for Home Use: Patient [...] When 04/03/2021 09:15 AM EDT Where: [address] [facility] [address] [place] [address]- Medications What How Much When Instructions Next [...] as needed for for constipation Pickup at [facility] as needed oxyCODONE (oxyCODONE 5 mg oral [...] for migraine headache as needed Pharmacy Information [facility]: [address] [place] [address] [phone] Take your medications faithfully. Do NOT skip [...] Barley. Bulgur wheat. Millet. Bran muffins. Popcorn. [place] wafer crackers. ??? Vegetables Sweet potatoes. Spinach. Kale. Artichokes. Cabbage. Broccoli. Green peas. Carrots. Squash. ??? Fruits Berries. Pears. Apples. Oranges. Avocados. Prunes and raisins. Dried figs. ??? Meats and Other Protein Sources [place], kidney, romero, and soy beans. Split peas. [...] humza has 11 g of protein. ??? Bartholomew seeds ??? 1 oz has 5.5 g [...] floor. ??? Place frequently used items in akkh-uv-gcmny places ??? Keep electrical cables out of [...] ? Using the bathroom. ? Using household electronics assembler or toxic chemicals. ? Touching or taking [...] through the local health department and the [place] Department for Public Health. Those organizations are [...] and need to call 911, notify the gravity meter operator that you have, or think you [...] clean your hands with an alcohol-based hand die cast supervisor that contains at least 60% alcohol. Clean your hands often. ??? Wash hands: Wash your hands often with soap and water for at least 20 seconds when visibly dirty. This is especially important after blowing your nose, coughing or sneezing, and going to the bathroom, and before eating or preparing food. ??? Hand die cast supervisor: Use an alcohol-based hand die cast supervisor with at least 60% alcohol, covering [...] and water or put them in the filling mixer. Clean all high-touch surfaces every day. Clean [...] or body fluids on them. ??? Household electronics assembler and disinfectants: Clean the area or item [...] list of disinfectants can be found here: https://www.epa.gov/pesticide-registration/pgnr-c-yagarddkjxqfb-xme-wkrkjkk-tq rs-cov-2 ondansetron (oral) (on ELAINA se rc) [...] may report side effects to FDA at 4-100-FJW-6788. What other drugs will affect ondansetron? Ondansetron [...] interact with ondansetron. This includes prescription and hdnz-jxj-wuzbwjf medicines, vitamins, and herbal products. Give a [...] to ensure that the information provided by [employer]. ('Mult[employer]') is accurate, up-to-date, and complete, but no guarantee is made to that effect. Drug information contained herein may be time sensitive. [employer] information has been compiled for use by healthcare practitioners and consumers in the [place] and therefore [employer] does not warrant that uses outside of the [place] are appropriate, unless specifically indicated otherwise. [employer] drug information does not endorse drugs, diagnose patients or recommend therapy. [employer] drug information is an informational resource designed [...] effective or appropriate for any given patient. [employer] does not assume any responsibility for any aspect of healthcare administered with the aid of information [employer] provides. The information contained herein is not intended to cover all possible uses, directions, precautions, warnings, drug interactions, allergic reactions, or adverse effects. If you have questions about the drugs you are taking, check with your doctor, nurse or pharmacist. Copyright 7290-3774 [employer]. Version: 13.01. Revision Date: 09/20/2016. cephalexin (sef [...] may report side effects to FDA at 9-818-DPK-9643. What other drugs will affect cephalexin? Tell your doctor about all your other medicines, especially: ?? metformin; or ?? probenecid. This list is not complete. Other drugs may affect cephalexin, including prescription and wkqd-ueq-arfwuuc medicines, vitamins, and herbal products. Not all [...] to ensure that the information provided by [employer]. ('Multum') is accurate, up-to-date, and complete, but no guarantee is made to that effect. Drug information contained herein may be time sensitive. [employer] information has been compiled for use by healthcare practitioners and consumers in the [place] and therefore [employer] does not warrant that uses outside of the [place] are appropriate, unless specifically indicated otherwise. [employer] drug information does not endorse drugs, diagnose patients or recommend therapy. [employer] drug information is an informational resource designed [...] effective or appropriate for any given patient. [facility] does not assume any responsibility for any aspect of healthcare administered with the aid of information [facility] provides. The information contained herein is not intended to cover all possible uses, directions, precautions, warnings, drug interactions, allergic reactions, or adverse effects. If you have questions about the drugs you are taking, check with your doctor, nurse or pharmacist. Copyright 7303-5381 [employer] [facility] [employer]. Version: 10.03. Revision Date: 12/04/2020. acetaminophen (oral) (a SEET a MIN oh fen) Actamin, Anacin AF, Aurophen, Bromo Eagle, Children's Tylenol, Mapap, M-Pap, Pharbetol, Silapap Childrens, [...] is a pain reliever and a fever juice tester. There are many brands and forms of [...] may report side effects to FDA at 7-586-GXQ-8662. What other drugs will affect acetaminophen? Other drugs may affect acetaminophen, including prescription and ibzt-ajd-pnozjql medicines, vitamins, and herbal products. Tell your [...] to ensure that the information provided by [employer]. ('Multum') is accurate, up-to-date, and complete, but no guarantee is made to that effect. Drug information contained herein may be time sensitive. [employer] information has been compiled for use by healthcare practitioners and consumers in the [place] and therefore [employer] does not warrant that uses outside of the [place] are appropriate, unless specifically indicated otherwise. [employer] drug information does not endorse drugs, diagnose patients or recommend therapy. [employer] drug information is an informational resource designed [...] effective or appropriate for any given patient. [employer] does not assume any responsibility for any aspect of healthcare administered with the aid of information [employer] provides. The information contained herein is not intended to cover all possible uses, directions, precautions, warnings, drug interactions, allergic reactions, or adverse effects. If you have questions about the drugs you are taking, check with your doctor, nurse or pharmacist. Copyright 0321-8291 [employer]. Version: 21.04. Revision Date: 07/07/2020. meloxicam (oral/injection) [...] may report side effects to FDA at 3-514-RQH-5215. What other drugs will affect meloxicam? Ask [...] drugs may affect meloxicam, including prescription and oidz-bhg-dymcmwv medicines, vitamins, and herbal products. Not all [...] to ensure that the information provided by [employer]. ('Multum') is accurate, up-to-date, and complete, but no guarantee is made to that effect. Drug information contained herein may be time sensitive. [employer] information has been compiled for use by healthcare practitioners and consumers in the [place] and therefore [employer] does not warrant that uses outside of the [place] are appropriate, unless specifically indicated otherwise. [employer] drug information does not endorse drugs, diagnose patients or recommend therapy. [employer] drug information is an informational resource designed [...] effective or appropriate for any given patient. [employer] does not assume any responsibility for any aspect of healthcare administered with the aid of information [employer] provides. The information contained herein is not intended to cover all possible uses, directions, precautions, warnings, drug interactions, allergic reactions, or adverse effects. If you have questions about the drugs you are taking, check with your doctor, nurse or pharmacist. Copyright 4174-1354 [employer]. Version: 14.. Revision Date: 10/03/2020. docusate (oral/rectal) [...] enema. Electronically signed by Kristina Dobbs Conversion Railroad Track Repair Supervisor Cerner at 03/21/2023 1:18 PM CDT documented in this encounter Plan of Treatment Not on file documented as of this encounter Visit Diagnoses Not on filedocumented in this encounter
--- OUTSIDE RECORDS SUMMARY | 2025-07-18 09:31 | XMS_ITS | Encounter Summary ---
Author Organization [employer] ([place], [place], [place], [place]) Address [address] [place] [address] Care Team Providers Care Central Communications Specialist Name Role Phone Unavailable Primary Care Provider Unavailabl e Encounter Details Date Type Department Care Team (Late st Contact Info) Description 03/08/2021 Transcribed Document [facility] [place] [facility] [place] [address] ProviderLibrado MD [address] [place] [address] Social History Tobacco Use Types Packs/Day [...] Source : Measured Height Entry Format : [place] Height, Feet : 5 ft(Converted to: 152 cm, 60 Inch) Height, Inches : 7 Inch(Converted to: 0 ft 7 Inch, 17.78 cm) Clinical Height : 170.18 cm Weight Source : Standing scale Weight Entry Format : [place] Clinical Dosing Weight : 95 kg Weight, Pounds : 209 lb Body Surface Area (BSA) : 2.06 m2 Body Mass Index : 32.8 kg/m2 (HI) [place] Body Weight : 61 kg Deisy Collins [...] Deisy Collins RN - 03/08/2021 9:34 EDT [place] Suicide Severity Rating Scale (C-SSRS) CSSRS Past [...] : Sandip Tavares Emergency Contact #1 or [phone] Emergency Contact #1 Relationship : Spouse Emergency Contact #2 : . Emergency Contact #2 Phone Number : . Emergency Contact #2 Relationship : . Primary Language : Luxembourger Preferred Communication Mode : Verbal Communication Barrier : None Inspector Filters Needed : No Deisy Collins RN - [...]
--- OUTSIDE RECORDS SUMMARY | 2025-07-18 09:31 | XMS_ITS | Encounter Summary ---
Author Organization [employer] ([place], [place], [place], [place]) Address [address] [place] [address] Care Team Providers Care Msw Name Role Phone Unavailable Primary Care Provider Unavailabl e Encounter Details Date Type Department Care Team (Late st Contact Info) Description 01/25/2021 Transcribed Document [facility] [place] [address] ProviderLibrado MD [address] [place] [address] Social History Tobacco Use Types Packs/Day Years Used Date Smoking Tobacco: Never Assessed Comments Unknown Sex and Gender Information Value Date Recorded Sex Assigned at Not on file Legal Sex Female 1:10 PM CDT Gender Identity Not on file Sexual Orientation Not on file documented as of this encounter Miscellaneous Notes * Cerner Conversion Note - Librado ProviderMD - 01/25/2021 11:00 AM BIG DATA ADMIN Patient: JOIE TAVARES Age: 60 Years Sex: [...] Lymph # 2.13 K/uL 01/25/2021 11:[address] [facility] % 7.4 % 01/25/2021 11:[address] [facility] # 0.57 K/uL 01/25/2021 11:44 EST Eos [...] CLOUDY2 (Abnormal) 01/25/2021 11:44 EST Urine Specific [place] 1.024 01/25/2021 11:44 EST Urine pH Dipstick [...] Indicated 01/25/2021 11:44 EST Electronically signed by [facility], [facility] Conversion Biblical Languages Professor Cerner at 03/21/2023 1:13 PM CDT documented in this encounter Plan of Treatment Not on file documented as of this encounter Visit Diagnoses Not on filedocumented in this encounter
--- OUTSIDE RECORDS SUMMARY | 2025-07-18 09:31 | XMS_ITS | Encounter Summary ---
Author Organization [employer] ([place], [place], [place], [place]) Address [address] [place] [address] Care Team Providers Care Clip Riveter Name Role Phone Unavailable Primary Care Provider Unavailabl e Encounter Details Date Type Department Care Team (Late st Contact Info) Description 03/22/2021 Transcribed Document [facility] [place] [address] [place] [address] ProviderLibrado MD [address] [place], [place] [id number] Social History Tobacco Use Types Packs/Day Years [...]
--- OUTSIDE RECORDS SUMMARY | 2025-07-18 09:31 | XMS_ITS | Encounter Summary ---
Author Organization [employer] ([place], [place], [place], [place]) Address [address] [place] [address] Care Team Providers Care Desktop Publishing Operator Name Role Phone Unavailable Primary Care Provider Unavailabl e Encounter Details Date Type Department Care Team (Late st Contact Info) Description 03/21/2021 Transcribed Document [facility] [place] [facility] [place] [address] ProviderLibrado MD [address] [place] [address] Social History Tobacco Use Types Packs/Day [...] BARBARA NOYOLA, PT - 03/21/2021 12:00 EDT Penitentiary Goals Other PT LTG Grid [...] Initial goal Initial goal Initial goal BARBARA NOYLOA, PT - 03/21/2021 12:00 EDT BARBARA NOYOLA, [...]
--- OUTSIDE RECORDS SUMMARY | 2025-07-18 09:31 | XMS_ITS | Encounter Summary ---
Author Organization [employer] ([place], [place], [place], [place]) Address [address] [place] [address] Care Team Providers Care Merchandising Director Name Role Phone Unavailable Primary Care Provider Unavailabl e Encounter Details Date Type Department Care Team (Late st Contact Info) Description 03/22/2021 Transcribed Document [facility] [place] [facility] [place] [address] ProviderLibrado MD [address] [place] [address] Social History Tobacco Use Types [...] Policy Numbers : Insurance 1 Health Plan: [employer] Policy Number: [id number] Authorization Number: [id number] Insurance Primary Name : [facility] Policy Number: [id number] Authorization Status-Primary : Opo status approv Authorized Service Begin Date-Primary : 03/21/2021 EDT Observation Authorization Nbr-Primary : [id number] Authorization Comments-Primary : [facility] auth approved for outpt per Star note Historical Authorization Comments-Primary : No Authorization Comments Found CONRAD COWAN RN-Utilization Review - 03/22/2021 8:25 EDT documented in this encounter Plan of Treatment Not on file documented as of this encounter Visit Diagnoses Not on filedocumented in this encounter
--- OUTSIDE RECORDS SUMMARY | 2025-07-18 09:31 | XMS_ITS | Encounter Summary ---
Author Organization [employer] ([place], [place], [place], [place]) Address [address] [place] [address] Care Team Providers Care Appliance Technician Name Role Phone Unavailable Primary Care Provider Unavailabl e Encounter Details Date Type Department Care Team (Late st Contact Info) Description 03/22/2021 Transcribed Document [facility] [place] [facility] [place] [address] ProviderLibrado MD [facility] [place] [address] Social History Tobacco Use Types [...] Patient was discharged home follow up from [facility] on 03/22/21 having met 3/3 acute therapy goals. Patient will have assistance at home from family members as needed. At time of discharge patient was independent with bed mobility, SBA for transfers with RWx, ambulated ~ 200' with RWx SBA, safely ascended/descended 4 steps using MEDICAL PROGRAM SPECIALIST/CGA, safely ascended/descended 1 platform step with RWx CGA, and participated with LE exercises. Patient would continue to benefit from further skilled PT services to improve LE strength, gait mechanics, and functional mobility to maximize recovery from right anterior SALUD. I agree with above D/C summary. Bonnie Manuel, PT LYLE AYLIN B., PT - 03/22/2021 16:12 EDT Intermediate Goals Other PT LTG Grid Goal #1 [...] EDT 03/22/2021 EDT 03/22/2021 EDT PABLO ABDALLA, CABLE TECHNICIAN - 03/22/2021 15:58 EDT PABLO ABDALLA, CABLE TECHNICIAN - 03/22/2021 15:58 EDT PABLO ABDALLA, CABLE TECHNICIAN - 03/22/2021 15:58 EDT documented in this encounter Plan of Treatment Not on file documented as of this encounter Visit Diagnoses Not on filedocumented in this encounter
--- OUTSIDE RECORDS SUMMARY | 2025-07-18 09:31 | XMS_ITS | Encounter Summary ---
Author Organization [employer] ([place], [place], [place], [place]) Address [address] [place] [address] Care Team Providers Care Corporate Communications Intern Name Role Phone Unavailable Primary Care Provider Unavailabl e Encounter Details Date Type Department Care Team (Late st Contact Info) Description 03/22/2021 Transcribed Document [facility] [place] Family Medicine [facility] [place] [address] ProviderLibrado MD [address] [place] [address] Social History Tobacco Use Types [...] Librado ProviderMD - 03/22/2021 12:43 PM CDT [place] [id number] JOIE HAQ :1960 Visit Time:03/21/2021 Your Visit [...] Instructions From Your Care Team Community Services: [facility] Home Health Services: [facility] Medical Equipment for Home Use: [...] When 04/03/2021 09:15 AM EDT Where: [address] [facility] [address] [place] [address]- Medications What How Much When Instructions Next [...] Pharmacy Information [facility]: [address] [phone] Take your medications faithfully. Do NOT skip [...] Barley. Bulgur wheat. Millet. Bran muffins. Popcorn. [place] wafer crackers. Vegetables Sweet potatoes. Spinach. Kale. Artichokes. Cabbage. Broccoli. Green peas. Carrots. Squash. Fruits Berries. Pears. Apples. Oranges. Avocados. Prunes and raisins. Dried figs. Meats and Other Protein Sources [place], kidney, romero, and soy beans. Split peas. [...] humza has 11 g of protein. ??? [place] seeds ??? 1 oz has 5.5 g [...] floor. ??? Place frequently used items in gjis-ek-mzgmw places ??? Keep electrical cables out of [...] ??? Using the bathroom. ??? Using household automatic thread winder or toxic chemicals. ??? Touching or taking [...] through the local health department and the [place] Department for Public Health. Those organizations are [...] and need to call 911, notify the casting machine control board operator that you have, or think you [...] clean your hands with an alcohol-based hand subsorter that contains at least 60% alcohol. Clean your hands often. ??? Wash hands: Wash your hands often with soap and water for at least 20 seconds when visibly dirty. This is especially important after blowing your nose, coughing or sneezing, and going to the bathroom, and before eating or preparing food. ??? Hand subsorter: Use an alcohol-based hand subsorter with at least 60% alcohol, covering all [...] and water or put them in the berry picker machine operator. Clean all high-touch surfaces every day. [...] or body fluids on them. ??? Household automatic thread winder and disinfectants: Clean the area or item [...] list of disinfectants can be found here: https://www.epa.gov/pesticide-registration/glxa-s-uzkplgyyffowg-gcd-mwrrrmq-dh rs-cov-2 ondansetron (oral) (on ELAINA se rc) [...] may report side effects to FDA at 1-249-XQD-8305. What other drugs will affect ondansetron? Ondansetron [...] interact with ondansetron. This includes prescription and owuq-ccj-aryjsyh medicines, vitamins, and herbal products. Give a [...] to ensure that the information provided by [employer]. ('[employer]') is accurate, up-to-date, and complete, but no guarantee is made to that effect. Drug information contained herein may be time sensitive. [employer] information has been compiled for use by healthcare practitioners and consumers in the [place] and therefore [employer] does not warrant that uses outside of the [place] are appropriate, unless specifically indicated otherwise. [employer]'s drug information does not endorse drugs, diagnose patients or recommend therapy. [employer] drug information is an informational resource designed [...] effective or appropriate for any given patient. [facility] does not assume any responsibility for any aspect of healthcare administered with the aid of information [facility] provides. The information contained herein is not intended to cover all possible uses, directions, precautions, warnings, drug interactions, allergic reactions, or adverse effects. If you have questions about the drugs you are taking, check with your doctor, nurse or pharmacist. Copyright 7820-3293 [employer]. Version: 13.01. Revision Date: 09/20/2016. cephalexin (sef [...] may report side effects to FDA at 7-311-DSU-1981. What other drugs will affect cephalexin? Tell your doctor about all your other medicines, especially: ?? metformin; or ?? probenecid. This list is not complete. Other drugs may affect cephalexin, including prescription and zdoo-zwb-xeuctfs medicines, vitamins, and herbal products. Not all [...] to ensure that the information provided by [employer]. ('mywavestum') is accurate, up-to-date, and complete, but no guarantee is made to that effect. Drug information contained herein may be time sensitive. [employer] information has been compiled for use by healthcare practitioners and consumers in the [place] and therefore [employer] does not warrant that uses outside of the [place] are appropriate, unless specifically indicated otherwise. [employer] drug information does not endorse drugs, diagnose patients or recommend therapy. [employer] drug information is an informational resource designed [...] effective or appropriate for any given patient. [employer] does not assume any responsibility for any aspect of healthcare administered with the aid of information [employer] provides. The information contained herein is not intended to cover all possible uses, directions, precautions, warnings, drug interactions, allergic reactions, or adverse effects. If you have questions about the drugs you are taking, check with your doctor, nurse or pharmacist. Copyright 3843-3237 [employer]. Version: 10.. Revision Date: 12/04/2020. acetaminophen (oral) (a SEET a MIN oh fen) Actamin, Anacin AF, Aurophen, Bromo [place], Children's Tylenol, Mapap, M-Pap, Pharbetol, Silapap Childrens, [...] is a pain reliever and a fever attorney lawyer. There are many brands and forms of [...] may report side effects to FDA at 0-302-ILJ-8291. What other drugs will affect acetaminophen? Other drugs may affect acetaminophen, including prescription and ygzh-rme-eyhrnbt medicines, vitamins, and herbal products. Tell your [...] to ensure that the information provided by [employer]. ('[employer]') is accurate, up-to-date, and complete, but no guarantee is made to that effect. Drug information contained herein may be time sensitive. [employer] information has been compiled for use by healthcare practitioners and consumers in the [place] and therefore [employer] does not warrant that uses outside of the [place] are appropriate, unless specifically indicated otherwise. [employer]'s drug information does not endorse drugs, diagnose patients or recommend therapy. [employer] drug information is an informational resource designed [...] effective or appropriate for any given patient. [employer] does not assume any responsibility for any aspect of healthcare administered with the aid of information [employer] provides. The information contained herein is not intended to cover all possible uses, directions, precautions, warnings, drug interactions, allergic reactions, or adverse effects. If you have questions about the drugs you are taking, check with your doctor, nurse or pharmacist. Copyright 1323-8832 [employer]. Version: 21.04. Revision Date: 07/07/2020. meloxicam (oral/injection) [...] may report side effects to FDA at 1-699-HQH-1990. What other drugs will affect meloxicam? Ask [...] drugs may affect meloxicam, including prescription and intl-etc-alasukn medicines, vitamins, and herbal products. Not all [...] to ensure that the information provided by [employer]. ('[employer]') is accurate, up-to-date, and complete, but no guarantee is made to that effect. Drug information contained herein may be time sensitive. [employer] information has been compiled for use by healthcare practitioners and consumers in the [place] and therefore [employer] does not warrant that uses outside of the [place] are appropriate, unless specifically indicated otherwise. [employer] drug information does not endorse drugs, diagnose patients or recommend therapy. [employer] drug information is an informational resource designed [...] effective or appropriate for any given patient. [employer] does not assume any responsibility for any aspect of healthcare administered with the aid of information [employer] provides. The information contained herein is not intended to cover all possible uses, directions, precautions, warnings, drug interactions, allergic reactions, or adverse effects. If you have questions about the drugs you are taking, check with your doctor, nurse or pharmacist. Copyright 1213-6225 [employer]. Version: 14.. Revision Date: 10/03/2020. docusate (oral/rectal) [...]
--- OUTSIDE RECORDS SUMMARY | 2025-07-18 09:31 | XMS_ITS | Encounter Summary ---
Author Organization [employer] ([place], [place], [place], [place]) Address [address] [place] [address] Care Team Providers Care Data Capture Specialist Name Role Phone Unavailable Primary Care Provider Unavailabl e Encounter Details Date Type Department Care Team (Late st Contact Info) Description 03/08/2021 Transcribed Document [facility] [place] [facility] [place] [address] ProviderLibrado MD [address] [place] [address] Social History Tobacco Use Types Packs/Day [...] Appearance CLEAR2 03/08/2021 09:44 EDT Urine Specific Calypso 1.012 03/08/2021 09:44 EDT Urine pH Dipstick [...] only. Electronically signed by Kristina Dobbs Conversion Buildings And Grounds Supervisor Cerner at 03/21/2023 1:07 PM CDT documented in this encounter Plan of Treatment Not on file documented as of this encounter Visit Diagnoses Not on filedocumented in this encounter
--- OUTSIDE RECORDS SUMMARY | 2025-07-18 09:31 | XMS_ITS | Encounter Summary ---
Author Organization [employer] ([place], [place], [place], [place]) Address [address] [place] [address] Care Team Providers Care Cdc Associate Name Role Phone Unavailable Primary Care Provider Unavailabl e Encounter Details Date Type Department Care Team (Late st Contact Info) Description 03/22/2021 Transcribed Document [facility] [place] [facility] [place] [address] ProviderLibrado MD [address] [place] [address] Social History Tobacco Use Types Packs/Day [...] Performed On: 03/22/2021 11:27 EDT by LASHAE LGUO RN Care Management Progress Note Discharge Arrangements : Patient Post-Acute Information Patient Name: JOIE TAVARES Gender: Female : [birth year] Age: 60 Years Phillip Referral(s): Service: Organization: Business Address: Phone Number: [facility] [address], [place], [address] Discharge Options Discussed with Patient [...] Referral sent via Norberto. patient also choose [facility] for her outpatient PT. DME: [...]
[2025-07-18 09:32] VITALS: BMI 31.3
[2025-07-18 10:18] LABS: Hematocrit 41.4 % (37.0-47.0); Hemoglobin 13.5 g/dL (12.2-16.2); Immature Granulocytes % 0.1 %; Mean Corpuscular HGB Conc 32.6 g/dL (31.8-35.4); Mean Corpuscular Hemoglobin 30.3 pg (27.0-31.2); Mean Corpuscular Volume 93.0 fl (81-99); Nucleated Red Blood Cells % 0 %; Platelet Count 202 K/mm3 (142-424); Red Blood Count 4.45 M/mm3 (4.20-5.40); Red Cell Distribution Width-SD 46.8 fL; White Blood Count 9.0 K/mm3 (4.8-10.8)
[2025-07-18 10:24] LABS: Chloride 108 mmol/L (98-107); Potassium 4.0 mmoL/L (3.5-5.1); Sodium 138 mmol/L (136-145)
[2025-07-18 10:27] LABS: Anion Gap 7.0 mEq/L (5-15); Blood Urea Nitrogen 30 mg/dl (7-17); Calcium 8.5 mg/dl (8.4-10.2); Carbon Dioxide 27 mmol/L (22.0-30.0); Creatinine Clearance Estimated 82 mL/min (50-200); Creatinine,Serum 0.90 mg/dl (0.52-1.04); Estimated Glomerular Filt Rate 63 ml/min (>60); GFR (African American) 77 ML/MIN (>60); Glucose 97 mg/dl (74-100)
[2025-07-18 10:49] LABS: C-Reactive Protein 6.1 mg/L (0-4)
[2025-07-18 13:19] LABS: Vancomycin,Trough 24.3 ug/mL (5.0-10.0)
== END 2025-07-18 10:30 | disposition home or self-care (01) ==
LOC: INF 09:29
PROVIDERS: PCP Nurse Practitioner; Visit Provider Podiatrist
DX: L97.529 Non-pressure chronic ulcer of other part of left foot with unspecified severity (principal); M86.172 Other acute osteomyelitis, left ankle and foot
CPT/HCPCS: 36415; 80048; 80202; 85025; 85651; 86140; 96523

== ENCOUNTER → 2025-07-20 11:09 | Day surgery (SDC) | payer BC, SELFPAY ==
[2025-07-19 15:01] VITALS: BMI 31.3
[2025-07-20 11:23] VITALS: BP 162/90; PULSE 79; RESP 16; TEMP 36.6; O2SAT 95
--- NOTE | 2025-07-20 12:29 | P.OP_ITS ---
Date of procedure: 07/20/25 Pre-op Diagnosis:: Left foot surgical wound Left venous stasis ulcer B/L venous insufficiency RA Post-op Diagnosis:: Same Procedure performed:: [facility] Application of skin graft substitute leg (52468-74625) Surgical prep of skin graft recipient site (66187) Wound debridement (33601) Application on wound vac (90742) Surgeon:: Mony Peterson DPM Anesthesia: none Estimated blood loss (mL): 2 Clinical Note:: Pre-Op indications: Patient is a 64-year-old female with a left foot surgical wound/venous statsis ulcer. Patient has failed conservative treatment, including multiple debridements, various wound dressings, antibiotics, immobilization, w ound vac therapy. Patient has seen both [facility] wound care clinic and [facility] (patient unable to tolerate HBOT chamber). Patient had recent CT left foot which showed suspected osteomyelitis. She has surgery 06/16/25 for bone biopsy, wound debridemet, wound vac application. She has had several rounds of oral antibiotics: Cipro, Levo, Doxy, topical gentamicin. Referral for Infectious Disease made, made on culture results. Started PICC, IV Vanco on 07/06/25. She saw ID 07/12/25 and they did not make any changes to the current treatment plan. She had surgery for wound debridement, Organogenesis Apligraf application #1 on 06/29/25, clary #2 on 07/06/25, clary #3 on 07/13/25. We discussed staged graft application surgery. All risks and benefits were discussed including but not limited to: damage to blood vessels and nerves, bleeding, infection, wound complications, need for further surgery, implant/graft failure, need for removal of implant/graft, allergic reaction, prolonged or permanent swelling of the extremity, prolonged or permanent pain or deformity, temporary or permanent toe angulation/deformity, CRPS/RSD, DVT/PE, and anesthetic complications including anaphylaxis or . Patient understands if wound/graft gets infected, it could lead to prolonged oral or IV antibiotics or increased risk of worsening osteomyelitis, which could lead to possible loss of partial foot or even BKA. No guarantees were given. All questions fully answered. The patient verbalized understanding and agreed to proceed with surgery. Verbal and written consent was obtained. Operative findings:: Left foot open wound. 1st MTPJ incision has less edema. Erythema resolved. Some excoriation secondary to itching to the dorsal lateral foot, this has improved. Overall some improvement in appearance ok both surrounding skin and wound with graft and wound vac. No purulence, drainage, malodor or ascending cellulitis. Hallux is angulated medially. Exposed plate and one screw in the distal wound at the proximal phalanx level. There is minimal exposed screw. The phalanx bone distally was no longer exposed at the HIPJ level. The hardware was intact with n o signs of screw loosening or backing out from the plate. Sharp excisional full thickness wound debridement with 15' blade, forceps, curette thru skin into subq into deep fascia. Post debridement: Left medial foot wound: 100% granular, 2.5 x 1.0 x 0.25cm. Minimal bleeding with debridement. No jhonny purulence expressed. Operative note:: On this date and time patient was deemed an appropriate surgical candidate. With informed consent signed, the patient was taken to the local procedure operating theater room. The patient was positioned supine. No anesthesia was induced. No tourniquet used. Left lower extremity was prepped and draped in normal sterile fashion. PICC placed, IV Vanco 1g held (getting daily home infusion). Left medial dorsal foot wound debridement: Sharp excisional full-thickness debridement with 15 blade, curette down through skin layer, subcutaneous tissue into/including deep fascia. Proximal phalanx bone was more covered with exposed plate/less distal screw. No purulence or SOI noted. The skin edges were debrided with 15' blade, minimal bleeding noted. The wound was flushed with gentamicin irrigation. Skin cleansed with saline. Mastisol applied around the wound edges. Left foot application of Apligraf (Organogenesis wound graft): Farzana collagen was placed directly over the exposed plate/screw within the wound bed. Graft was prepared in standard fashion. Graft was cut and place dorsally linearly over wound. The other piece of the graft was placed over the distal hallux horizontal. The entire graft (44sq cm) was utilized. The graft was placed over the open wound including the collagen and rest of the wound bed (and circumferentially around the surrounding skin as the graft was larger than the wound) and secured with Steri-Strips. Adaptic was applied over the graft. Application of wound vac: Black foam cut to size and applied over adaptic. A [employer] medical wound VAC was applied in standard technique at 125 mmHg medium continuous pressure. A gauze, Shaan were applied to left foot. The patient tolerated the procedure well, without complications. Materials: Organogenesis Aligraf wound graft x1 (44sq cm), [employer] wound vac, Promogran Farzana collagen x1 (4.34sq ) Discharge/Plan: Ok to discharge home when ready and vss. Patient is to maintain dressing clean dry and intact. Elevate on two pillows. Minimize weight bearing. Ideally PWB to heel in fracture boot/post op shoe with walker. Plan for 3v left foot x-rays today to access for any new bone changes. Follow up on Friday for wound vac change and re-evaluation. Discussed possible collagen dressing w/wout wound vac vs follow up for planned staged surgery on 07/27/25: Left foot wound debridement, application of wound graft #5. Condition: stable Disposition: same day Complications:: None
[2025-07-20] MEDS: GENTAMICIN 80 MG/2 ML VIAL (12:35)
[2025-07-20 13:05] VITALS: BP 147/78; PULSE 53; RESP 18; TEMP 36.6; O2SAT 96
--- NOTE | 2025-07-20 13:15 | XR_ITS ---
FINAL REPORT CLINICAL HISTORY: s/p wound debridement, hx phalanx osteomyelitis COMPARISON: 06/16/2025 FINDINGS: LEFT FOOT Three views of the left foot demonstrate a sideplate and screws bridging the first metatarsal phalangeal joint. There is a wound VAC in the medial soft tissues adjacent to the first MTP joint. There is also a screw present in the second PIP joint. A moderate plantar spur is again noted. An accessory navicular is present as well. IMPRESSION: Prior fusion of the first MTP joint and a screw in the second PIP joint, stable since the prior exam. No new abnormalities are identified. Reviewed, Interpreted and Dictated by Mateusz Burroughs MD Transcribed by Alicia Colon Authenticated and [facility]
== END | disposition home or self-care (01) ==
PROVIDERS: PCP Nurse Practitioner; Visit Provider Podiatrist
PROC: (CPT 11043; principal; 2025-07-20 12:15)
DX: L97.529 Non-pressure chronic ulcer of other part of left foot with unspecified severity (principal); T81.31XA Disruption of external operation (surgical) wound, not elsewhere classified, initial encounter; I83.025 Varicose veins of left lower extremity with ulcer other part of foot; I10 Essential (primary) hypertension; M06.9 Rheumatoid arthritis, unspecified; A49.8 Other bacterial infections of unspecified site; M96.0 Pseudarthrosis after fusion or arthrodesis; I87.2 Venous insufficiency (chronic) (peripheral); I89.0 Lymphedema, not elsewhere classified; E66.811 Obesity, class 1; I99.8 Other disorder of circulatory system; Z96.641 Presence of right artificial hip joint; Z88.5 Allergy status to narcotic agent; Z88.6 Allergy status to analgesic agent; Z88.3 Allergy status to other anti-infective agents; Z88.8 Allergy status to other drugs, medicaments and biological substances; Z98.890 Other specified postprocedural states; Z68.31 Body mass index [BMI] 31.0-31.9, adult; Y79.2 Prosthetic and other implants, materials and accessory orthopedic devices associated with adverse incidents; Z96.653 Presence of artificial knee joint, bilateral
CPT/HCPCS: 11043; 15002; 15275; 15276; 97605; 73630; J1580; Q4101

== ENCOUNTER 2025-07-26 08:07 | Outpatient (CLI) | payer BC, SELFPAY ==
--- OUTSIDE RECORDS SUMMARY | 2025-07-26 08:10 | XMS_ITS | Encounter Summary ---
Author Organization [employer] ([place], [place], [place], [place]) Address [address] [place] [address] Care Team Providers Care Mat Worker Name Role Phone Unavailable Primary Care Provider Unavailabl e Encounter Details Date Type Department Care Team (Late st Contact Info) Description 03/22/2021 Transcribed Document [facility] [place] Medicine [facility] [place] [address] ProviderLibrado MD [address] [place] [address] Social History Tobacco Use Types [...]
--- OUTSIDE RECORDS SUMMARY | 2025-07-26 08:11 | XMS_ITS | Encounter Summary ---
Author Organization [employer] ([place], [place], [place], [place]) Address [address] [place] [address] Care Team Providers Care Wood Boatbuilder Name Role Phone Unavailable Primary Care Provider Unavailabl e Encounter Details Date Type Department Care Team (Late st Contact Info) Description 03/22/2021 Transcribed Document [facility] [place] Family Medicine [address] [place] [address] ProviderLibrado MD [address] [place] [address] Social History Tobacco Use Types [...] 03/22/2021 11:38 EDT Electronically signed by Dilia [facility] Conversion Medical Aides Teacher Cerner at 03/21/2023 1:05 PM CDT documented in this encounter Plan of Treatment Not on file documented as of this encounter Visit Diagnoses Not on filedocumented in this encounter
--- OUTSIDE RECORDS SUMMARY | 2025-07-26 08:11 | XMS_ITS | Encounter Summary ---
Author Organization [employer] ([place], [place], [place], [place]) Address [address] [place] [address] Care Team Providers Care Pt Skilled Name Role Phone Unavailable Primary Care Provider Unavailabl e Encounter Details Date Type Department Care Team (Late st Contact Info) Description 03/22/2021 Transcribed Document [facility] [place] [facility] [place] [address] ProviderLibrado MD [address] [place] [address] Social History Tobacco Use Types [...] Barley. Bulgur wheat. Millet. Bran muffins. Popcorn. [place] wafer crackers. Vegetables Sweet potatoes. Spinach. Kale. Artichokes. Cabbage. Broccoli. Green peas. Carrots. Squash. Fruits Berries. Pears. Apples. Oranges. Avocados. Prunes and raisins. Dried figs. Meats and Other Protein Sources [place], kidney, romero, and soy beans. Split peas. [...] humza has 11 g of protein. ?? [place] seeds ??? 1 oz has 5.5 g [...] floor. ?? Place frequently used items in ctsa-nz-jyqag places ?? Keep electrical cables out of [...] ?? Using the bathroom. ?? Using household egg smeller or toxic chemicals. ?? Touching or taking [...] all positive cases are reported through the [facility] health department and the [place] Department [...] and need to call 911, notify the flanging machine operator that you have, or think [...] clean your hands with an alcohol-based hand architecture faculty member that contains at least 60% alcohol. Clean your hands often. ??? Wash hands: Wash your hands often with soap and water for at least 20 seconds when visibly dirty. This is especially important after blowing your nose, coughing or sneezing, and going to the bathroom, and before eating or preparing food. ??? Hand architecture faculty member: Use an alcohol-based hand architecture faculty member with at least 60% alcohol, covering all [...] and water or put them in the bowling ball grader and marker. Clean all high-touch surfaces every day. Clean [...] or body fluids on them. ??? Household egg smeller and disinfectants: Clean the area or item [...] list of disinfectants can be found here: https://www.epa.gov/pesticide-registration/iqve-v-bmfnugugqngnx-vcz-pubuony-ou rs-cov-2 documented in this encounter Plan of Treatment Not on file documented as of this encounter Visit Diagnoses Not on filedocumented in this encounter
--- OUTSIDE RECORDS SUMMARY | 2025-07-26 08:11 | XMS_ITS | Encounter Summary ---
Author Organization [employer] ([place], [place], [place], [place]) Address [address] [place] [address] Care Team Providers Care Disease Education Specialist Name Role Phone Unavailable Primary Care Provider Unavailabl e Encounter Details Date Type Department Care Team (Late st Contact Info) Description 03/22/2021 Transcribed Document [facility] [place] [facility] [place] [address] ProviderLibrado MD [address] [place] [address] Social History Tobacco Use Types Packs/Day [...] 13:07 EDT Transporter Signature : Columba Gold [facility] Coord Patient Disposition, General : Discharge [...]
--- OUTSIDE RECORDS SUMMARY | 2025-07-26 08:11 | XMS_ITS | Encounter Summary ---
Author Organization [employer] ([place], [place], [place], [place]) Address [address] [place] [address] Care Team Providers Care Market Relationship Manager Name Role Phone Unavailable Primary Care Provider Unavailabl e Encounter Details Date Type Department Care Team (Late st Contact Info) Description 01/25/2021 Transcribed Document [facility] [place] Family Medicine [facility] [place] [address] ProviderLibrado MD [address] [place] [address] Social History Tobacco Use Types Packs/Day Years Used Date Smoking Tobacco: Never Assessed Comments Unknown Sex and Gender Information Value Date Recorded Sex Assigned at Not on file Legal Sex Female 1:10 PM CDT Gender Identity Not on file Sexual Orientation Not on file documented as of this encounter Miscellaneous Notes * Cerner Conversion Note - Librado ProviderMD - 01/25/2021 11:29 AM ELEMENTARY ELL TEACHER PAT Adult Entered On: 01/25/2021 11:35 EST [...] Source : Measured Height Entry Format : [place] Height, Feet : 5 ft(Converted to: 152 cm, 60 Inch) Height, Inches : 7 Inch(Converted to: 0 ft 7 Inch, 17.78 cm) Clinical Height : 170.18 cm Weight Source : Standing scale Weight Entry Format : [place] Clinical [facility] Weight : 99.09 kg Weight, Pounds : 218 lb Body Surface Area (BSA) : 2.1 m2 Body Mass Index : 34.2 kg/m2 (HI) [place] Body Weight : 61 kg Deisy Collins [...] Deisy Collins RN - 01/25/2021 11:29 EST [place] Suicide Severity Rating Scale (C-SSRS) CSSRS Past [...] : Sandip Tavares Emergency Contact #1 or [phone] Emergency Contact #1 Relationship : Spouse Emergency Contact #2 : . Emergency Contact #2 Phone Number : . Emergency Contact #2 Relationship : . Primary Language : Tajik Preferred Communication Mode : Verbal Communication Barrier : None Cds Sales Advisor Needed : No Deisy Collins RN - [...]
--- OUTSIDE RECORDS SUMMARY | 2025-07-26 08:11 | XMS_ITS | Encounter Summary ---
Author Organization [employer] ([place], [place], [place], [place]) Address [address] [place] [address] Care Team Providers Care Emergency Medical Service Coordinator Name Role Phone Unavailable Primary Care Provider Unavailabl e Encounter Details Date Type Department Care Team (Late st Contact Info) Description 03/22/2021 Transcribed Document [facility] [place] [address] [place] [address] ProviderLbirado MD [address] [place] [address] Social History Tobacco Use Types [...] EDT Chloraseptic Menthol 1.4% topical spray: 5 [place], Oral, [place], Q2H, PRN for Sore Throat, Routine, Start [...] constipation, # 60 Tab, 0 Refill(s), Pharmacy: [facility], 170.18, cm, 03/21/21 10:42:00 EDT, CLINICALHEIGHT, [...] Oral, Q4H phenol 1.4% throat spray 5 [place], Oral, Q2H promethazine 25 mg tab 12.5 [...] constipation, # 60 Tab, 0 Refill(s), Pharmacy: [facility], 170.18, cm, 03/21/21 10:42:00 EDT, CLINICALHEIGHT, [...]
--- OUTSIDE RECORDS SUMMARY | 2025-07-26 08:11 | XMS_ITS | Encounter Summary ---
Author Organization [employer] ([place], [place], [place]) Address [address] [place] [address] Care Team Providers Care Goal Umpire Name Role Phone Unavailable Primary Care Provider Unavailabl e Encounter Details Date Type Department Care Team (Late st Contact Info) Description 01/25/2021 Transcribed Document [facility] [place] Family Medicine [facility] [place] [address] ProviderLibrado MD [address] [place] [address] Social History Tobacco Use Types [...] - Librado ProviderMD - 01/25/2021 11:37 AM REPAIRER Meds to Bed Enrollment Entered On: 01/25/2021 11:37 EST Performed On: 01/25/2021 11:37 EST by Deisy Collins RN Meds to Bed Enrollment Patient Enrollment Decision: : No/do not enroll in meds to bed program Deisy Collins RN - 01/25/2021 11:37 EST Electronically signed by Dilia [facility] Conversion Time Clock Mechanic Cerner at 03/21/2023 12:59 PM CDT documented in this encounter Plan of Treatment Not on file documented as of this encounter Visit Diagnoses Not on filedocumented in this encounter
--- OUTSIDE RECORDS SUMMARY | 2025-07-26 08:11 | XMS_ITS | Encounter Summary ---
Author Organization [employer] ([place], [place], [place]) Address [address] [place] [address] Care Team Providers Care Caisson Worker Name Role Phone Unavailable Primary Care Provider Unavailabl e Encounter Details Date Type Department Care Team (Late st Contact Info) Description 03/22/2021 Transcribed Document [facility] [place] Family Medicine [facility] [place] [address] ProviderLibrado MD [address] [place] [address] Social History Tobacco Use Types Packs/Day [...] Address: Phone Number: [facility] [address], [address] Patient Offered Choice/Affiliations Explained : [...]
--- OUTSIDE RECORDS SUMMARY | 2025-07-26 08:11 | XMS_ITS | Encounter Summary ---
Author Organization [employer] ([place], [place]) Address [address] [place] [address] Care Team Providers Care Service Desk Lead Name Role Phone Unavailable Primary Care Provider Unavailabl e Encounter Details Date Type Department Care Team (Late st Contact Info) Description 03/21/2021 Transcribed Document [facility] [place] Family Medicine [place] [address] ProviderLibrado MD [address] [place] [address] Social History Tobacco Use Types Packs/Day [...] EDT Performed On: 03/21/2021 6:45 EDT by DANYA OCONNOR Chaplain-Non Cert General Information, Spiritual Care [...] Low Spiritual Framework : Integrated, provides strength/resource Scientology Preference : Alevism DAYNA OCONNOR Chaplain-Non Cert - 03/21/2021 7:29 EDT documented in this encounter Plan of Treatment Not on file documented as of this encounter Visit Diagnoses Not on filedocumented in this encounter
--- OUTSIDE RECORDS SUMMARY | 2025-07-26 08:11 | XMS_ITS | Encounter Summary ---
Author Organization [employer] ([place], [place]) Address [address] [place] [address] Care Team Providers Care Branch Specialist Name Role Phone Unavailable Primary Care Provider Unavailabl e Encounter Details Date Type Department Care Team (Late st Contact Info) Description 03/21/2021 Transcribed Document [facility] [place] Family Medicine [facility] [place] [address] ProviderLibrado MD [address] [place] [address] Social History Tobacco Use Types Packs/Day [...] JOIE TAVARES/Sex: 1960 Female Med Rec #: [id number] Physician: DARY GAMEZ JR, JR, MD-ORT Financial #: [id number] Pt. Type: O Room/Bed: EAS/1 Admit/Disch: 03/21/21 04:39:00 - Institution: [facility] PACU Case Times Entry 1 In PACU I 03/21/21 09:16:00 Ready for PACU 03/21/21 10:10:00 Discharge Discharge from PACU 03/21/21 10:10:00 I Last Modified By: MAN GOODMAN 03/21/21 10:10:56 [facility] PACU Case Times Audit 03/21/21 10:10:56 Livestock Haulier: VALERIA Modifier: COLEMAM <+> 1 Ready for PACU Discharge <+> 1 Discharge from PACU I Finalized By: MAN GOODMAN Document Signatures Signed By: MAN GOODMAN 03/21/21 10:11 Electronically signed by Dilia [facility] Conversion Net Sql Developer Cerner at 03/21/2023 1:17 PM CDT documented in this encounter Plan of Treatment Not on file documented as of this encounter Visit Diagnoses Not on filedocumented in this encounter
--- OUTSIDE RECORDS SUMMARY | 2025-07-26 08:12 | XMS_ITS | Encounter Summary ---
Author Organization [employer] ([place], [place], [place]) Address [address] [place] [address] Care Team Providers Care Bar Tacker Name Role Phone Unavailable Primary Care Provider Unavailabl e Encounter Details Date Type Department Care Team (Late st Contact Info) Description 03/21/2021 Transcribed Document [facility] [place] [facility] [place] [address] ProviderLibrado MD [address] [place] [address] Social History Tobacco Use Types [...] Oral, Q4H phenol 1.4% throat spray 5 [place], Oral, Q2H promethazine 25 mg tab 12.5 [...] HTN, heart disease Procedure history: tubal. Appendectomy; (55723). trigger finger. arthroscopy both knees. left total knee with Titanium. right CTR. cysto lithotripsy. several hammertoe/bunion surgeries. right wrist joint fusion. facet injects and rhizotomy. heart cath and lexiscan stress test 2010. retina; vein injections monthly. RTKA with Titanium. Colonoscopy ([id number]). Cystoscopy ([id number]). Bilateral Cataract Removal with IOL Implants. Lithotripsy ([id number]). Social History Patient is and has no children, she quit [employer] on 01/10/1993.Denies drinking alcohol. Physical Examination VS/Measurements [...] swelling, No deformity, Normal gait. Integumentary: Warm, [place], Intact, No pallor, No rash, WOUND STABLE. [...] then you may give Tylenol 650 mg PO/GA x 1. If no response in 2 [...]
--- OUTSIDE RECORDS SUMMARY | 2025-07-26 08:12 | XMS_ITS | Encounter Summary ---
Author Organization [employer] ([place], [place]) Address [address] [place] [address] Care Team Providers Care Electrical Repairer Name Role Phone Unavailable Primary Care Provider Unavailabl e Encounter Details Date Type Department Care Team (Late st Contact Info) Description 03/22/2021 Transcribed Document [facility] [place] Family Medicine [facility] [place] [address] ProviderLibrado MD [address] [place], [place] [...] Policy Numbers : Insurance 1 Health Plan: [employer] Policy Number: [id number] Authorization Number: [id number] Insurance Primary Name : [facility] Policy Number: [id number] Authorization Status-Primary : Opo status approv Authorized Service Begin Date-Primary : 03/21/2021 EDT Observation Authorization Nbr-Primary : [id number] Authorization Comments-Primary : [facility] auth approved for outpt per Star note Historical Authorization Comments-Primary : No Authorization Comments Found CONRAD COWAN RN-Utilization Review - 03/22/2021 8:25 EDT documented in this encounter Plan of Treatment Not on file documented as of this encounter Visit Diagnoses Not on filedocumented in this encounter
--- OUTSIDE RECORDS SUMMARY | 2025-07-26 08:12 | XMS_ITS | Encounter Summary ---
Author Organization [employer] ([place], [place], [place]) Address [address] [place] [address] Care Team Providers Care Stencil Inspector Name Role Phone Unavailable Primary Care Provider Unavailabl e Encounter Details Date Type Department Care Team (Late st Contact Info) Description 03/21/2021 Transcribed Document [facility] [place] Family Medicine [address] [place] [address] ProviderLibrado MD [address] [place], [place] [address] Social History Tobacco Use Types Packs/Day Years [...]
--- OUTSIDE RECORDS SUMMARY | 2025-07-26 08:12 | XMS_ITS | Encounter Summary ---
Author Organization [employer] ([place], [place]) Address [address] [place] [address] Care Team Providers Care Automotive Brake Technician Name Role Phone Unavailable Primary Care Provider Unavailabl e Encounter Details Date Type Department Care Team (Late st Contact Info) Description 03/21/2021 Transcribed Document [facility] [place] Family Medicine [facility] [place] [address] ProviderLibrado MD [address] [place] [address] Social History Tobacco Use Types Packs/Day [...] Source : Measured Height Entry Format : [place] Height, Feet : 5 ft(Converted to: 152 cm, 60 Inch) Height, Inches : 7 Inch(Converted to: 0 ft 7 Inch, 17.78 cm) Clinical Height : 170.18 cm Weight Source : Standing scale Weight Entry Format : [place] Clinical Dosing Weight : 93.18 kg Weight, Pounds : 205 lb Body Surface Area (BSA) : 2.05 m2 Body Mass Index : 32.2 kg/m2 (HI) [place] Body Weight : 61 kg BILLY ALFARO [...] BILLY ALFARO RN - 03/21/2021 6:36 EDT [place] Suicide Severity Rating Scale (C-SSRS) CSSRS Past [...] : Sandip Tavares Emergency Contact #1 or [phone] Emergency Contact #1 Relationship : Spouse Emergency Contact #2 : . Emergency Contact #2 Phone Number : . Emergency Contact #2 Relationship : . Information Obtained From : Patient Primary Language : Luxembourgish Preferred Communication Mode : Verbal Communication Barrier : None Options Trader Needed : No Currently Lactating : No [...]
--- OUTSIDE RECORDS SUMMARY | 2025-07-26 08:12 | XMS_ITS | Encounter Summary ---
Author Organization [employer] ([place], [place], [place], [place]) Address [address] [place] [address] Care Team Providers Care Electric Repair Supervisor Name Role Phone Unavailable Primary Care Provider Unavailabl e Encounter Details Date Type Department Care Team (Late st Contact Info) Description 03/08/2021 Transcribed Document [facility] [place] Family Medicine [facility] [place] [address] ProviderLibrado MD [address] [place] [address] Social History Tobacco Use Types Packs/Day [...] Source : Measured Height Entry Format : [place] Height, Feet : 5 ft(Converted to: 152 cm, 60 Inch) Height, Inches : 7 Inch(Converted to: 0 ft 7 Inch, 17.78 cm) Clinical Height : 170.18 cm Weight Source : Standing scale Weight Entry Format : [place] Clinical Dosing Weight : 95 kg Weight, Pounds : 209 lb Body Surface Area (BSA) : 2.06 m2 Body Mass Index : 32.8 kg/m2 (HI) [place] Body Weight : 61 kg Deisy Collins [...] Deisy Collins RN - 03/08/2021 9:34 EDT [place] Suicide Severity Rating Scale (C-SSRS) CSSRS Past [...] : Sandip Tavares Emergency Contact #1 or [phone] Emergency Contact #1 Relationship : Spouse Emergency Contact #2 : . Emergency Contact #2 Phone Number : . Emergency Contact #2 Relationship : . Primary Language : Thai Preferred Communication Mode : Verbal Communication Barrier : None Analyst Microbiology Lab Needed : No Deisy Collins RN - [...] EDT Electronically signed by Kristina Dobbs Conversion Interactive Media Marketing Director Cerner at 03/21/2023 1:21 PM CDT documented in this encounter Plan of Treatment Not on file documented as of this encounter Visit Diagnoses Not on filedocumented in this encounter
--- OUTSIDE RECORDS SUMMARY | 2025-07-26 08:12 | XMS_ITS | Encounter Summary ---
Author Organization [employer] ([place], [place], [place], [place]) Address [address] [place] [address] Care Team Providers Care Airport Operations Duty Manager Name Role Phone Unavailable Primary Care Provider Unavailabl e Encounter Details Date Type Department Care Team (Late st Contact Info) Description 03/21/2021 Transcribed Document [facility] [place] [address] ProviderLibrado MD [address] [place] [address] Social History Tobacco Use Types Packs/Day [...] COMPONENTS USED: Size 48 press-fit acetabular component [place] with a neutral poly liner to accept [...] the recovery room. Final condition was improved. /[id number] MD SIMIN Infante Jr/SHOBHA / SIMIN / MODL /[id number] documented in this encounter Plan of Treatment Not on file documented as of this encounter Visit Diagnoses Not on filedocumented in this encounter
--- OUTSIDE RECORDS SUMMARY | 2025-07-26 08:12 | XMS_ITS | Encounter Summary ---
Author Organization [employer] ([place], [place], [place], [place]) Address [address] [place] [address] Care Team Providers Care Straight Tooth Gear Generator Operator Name Role Phone Unavailable Primary Care Provider Unavailabl e Encounter Details Date Type Department Care Team (Late st Contact Info) Description 03/22/2021 Transcribed Document [facility] [place] [address] [place] [address] ProviderLibrado MD [address] [place], [place] [address] Social History Tobacco Use Types Packs/Day Years [...]
--- OUTSIDE RECORDS SUMMARY | 2025-07-26 08:12 | XMS_ITS | Encounter Summary ---
Author Organization [employer] ([place], [place], [place], [place]) Address [address] [place] [address] Care Team Providers Care Front Elevator Operator Name Role Phone Unavailable Primary Care Provider Unavailabl e Encounter Details Date Type Department Care Team (Late st Contact Info) Description 03/21/2021 Transcribed Document [facility] [place] Medicine [facility] [place] [address] ProviderLibrado MD [address] [place] [address] Social History Tobacco Use Types Packs/Day [...] On: 03/22/2021 9:27 EDT by PABLO ABDALLA, ECONOMIC ANALYSIS DIRECTOR General Information, PT Visit Type, PT : [...] PABLO ABDALLA PTA - 03/22/2021 10:05 EDT Assisted Goals Other PT LTG Grid Goal #1 [...] : 03/22/2021 EDT 03/22/2021 EDT 03/22/2021 EDT PALBO ABDALLA, ECONOMIC ANALYSIS DIRECTOR - 03/22/2021 10:05 EDT RM PABLO Frederick, ECONOMIC ANALYSIS DIRECTOR - 03/22/2021 10:05 EDT RM PABLO Frederick, ECONOMIC ANALYSIS DIRECTOR - 03/22/2021 10:05 EDT Treatment Note Subjective [...] for Treatment : Anticipated d/c home from [facility] [facility] today. PABLO ABDALLA, BERNARDO - 03/22/2021 10:05 EDT Pain Assessment Pain Scaled Used : 0-10 Pain scale Pain Score Pre-Intervention : 0 PABLO ABDALLA, BERNARDO - 03/22/2021 10:05 EDT Image 1 - Images currently included in the form version of this document have not been included in the text rendition version of the form. [place] PT Charges ECONOMIC ANALYSIS DIRECTOR PT Therap. Exercise 15 min-ECONOMIC ANALYSIS DIRECTOR : 1 Gait Training Each 15 Min-ECONOMIC ANALYSIS DIRECTOR : 1 PABLO ABDALLA, ECONOMIC ANALYSIS DIRECTOR - 03/22/2021 10:05 EDT documented in this encounter Plan of Treatment Not on file documented as of this encounter Visit Diagnoses Not on filedocumented in this encounter
--- OUTSIDE RECORDS SUMMARY | 2025-07-26 08:12 | XMS_ITS | Encounter Summary ---
Author Organization [employer] ([place], [place], [place], [place]) Address [address] [place] [address] Care Team Providers Care Motel Manager Name Role Phone Unavailable Primary Care Provider Unavailabl e Encounter Details Date Type Department Care Team (Late st Contact Info) Description 03/21/2021 Transcribed Document [facility] Family Medicine [facility] [place] [address] ProviderLibrado MD [address] [place] [address] Social History Tobacco Use Types Packs/Day [...] JOIE TAVARES/Sex: 1960 Female Med Rec #: [id number] Physician: DARY GAMEZ JR, JR, MD-ORT Financial #: [id number] Pt. Type: O Room/Bed: EAS/1 Admit/Disch: 03/21/21 04:39:00 - [place] [facility] [place] Case Attendance Entry 1 Entry 2 Entry 3 Case Attendee DARY GAMEZ JR, JR, WHITAKER, CARLY, Davis, Stephen J, RNFA MD-ORT MANAGER MONITORING-ANS Role Performed Surgeon/Proceduralist, MANAGER MONITORING/Nurse Wide Area Network Administrator NAILA First Time In 03/21/21 07:28:00 03/21/21 [...] Performed Scrub, First Scrub, Second Cell Saver Analysis Intern Time In 03/21/21 07:28:00 03/21/21 07:28:00 03/21/21 [...] ATTENDEE #2 Sarah Biggs LONGSWORTH, GARY, MAGALYS Director Of Radio Services Role Performed Vendor Quality Control Inspector Heading Wireless Sales Manager, First Time In 03/21/21 07:28:00 03/21/21 07:35:00 [...] Case Attendee FAITH ESCOBEDO RN Role Performed Wireless Sales Manager, Second Time In 03/21/21 09:04:00 Time Out 03/21/21 09:15:00 Procedure Hip Total Anterior Approach(Right) Other Attendee Superficial Wound Closed By: Last Modified By: KAMERON CORREA RN 03/21/21 09:14:09 [facility] IntraOp Case Attendance Audit 03/21/21 09:14:09 Equipment Worker: LONGGA Modifier: LONGGA 1 <+> Time Out [...] Procedure Hip Total Anterior Approach(Right) 03/21/21 09:09:17 Equipment Worker: LONGGA Modifier: LONGGA 9 <+> Time Out 9 <*> Procedure Hip Total Anterior Approach(Right) <+> 10 Case Attendee <+> 10 Role Performed <+> 10 Time In <+> 10 Procedure 03/21/21 07:55:56 Equipment Worker: LONGGA Modifier: LONGGA <+> 9 Case Attendee <+> 9 Role Performed <+> 9 Time In <+> 9 Procedure 03/21/21 07:53:41 Equipment Worker: LONGGA Modifier: LONGGA 6 <*> Time In 03/21/21 07:28:00 6 <*> Procedure Hip Total Anterior Approach(Right) 03/21/21 07:53:18 Equipment Worker: LONGGA Modifier: LONGGA <+> 1 Procedure 2 <*> Procedure Hip Total Anterior Approach(Right) 3 <*> Procedure Hip Total Anterior Approach(Right) 4 <*> Procedure Hip Total Anterior Approach(Right) 5 <*> Procedure Hip Total Anterior Approach(Right) 6 <+> Time In 6 <*> Procedure Hip Total Anterior Approach(Right) 7 <*> Procedure Hip Total Anterior Approach(Right) 8 <*> Procedure Hip Total Anterior Approach(Right) 03/21/21 07:43:00 Equipment Worker: LONGGA Modifier: LONGGA <+> 1 Time In [...] [facility] IntraOp Case Times Audit 03/21/21 09:14:07 Equipment Worker: LONGGA Modifier: LONGGA <+> 1 Out Room Time <+> 1 Stop Time 03/21/21 09:13:29 Equipment Worker: LONGGA Modifier: LONGGA <+> 1 Stop Time 03/21/21 07:53:13 Equipment Worker: LONGGA Modifier: LONGGA <+> 1 Start Time [...] IntraOp Dressing and Packing Audit 03/21/21 08:58:36 Equipment Worker: MARY Modifier: GIRISHGA 1 <-> Wound Dressing [...] IntraOp Fire Risk Assessment Audit 03/21/21 08:09:15 Equipment Worker: MARY Modifier: LONGGA <+> 1 Fire Risk Assessment Verified By <+> 1 Fire Risk Assessment Verified Date/Time <+> 1 High Risk Protocol Implemented SJ IntraOp General Case Ct Scan Tech 1 Case Information OR OR 05 [facility] Case Level 1 Room Verified Yes Wound [...] D HIP STEM ACCOLADE II Identification 48MM [id number] Description Implant Quantity 1 1 1 Implant Site RIGHT HIP RIGHT HIP RIGHT HIP Implant Identification Model Number Implant Identification Serial Number Implant [id number] Identification Lot Number Implant Cherry Point Ortho Cap Cherry Point:Nikita Nikita:Cherry Point Identification Orthopaedics Orthopaedics Mechanical Field Engineer Name: Implant [id number] Identification Catalog Number Implant Size Implant Has an Yes Yes Yes Expiration Date Implant Expiration 10/18/25 11/02/25 12/23/25 Date Wasted Radioactive Material Time Implanted Tissue Implant Continue for Tissue Implant Documentation Tissue Identification Number Graft Prep Per Mechanical Field Engineer Instructions: Tissue Preparation Method: Reconstitution Solution: Reconstitution Solution Lot Number Reconstitution Solution Expiration Date: Thawing Solution Thawing Solution Lot Number Thawing Solution Expiration Date Preparation Materials, Other Preparation Materials, Other Lot Number Preparation Materials, Other Expiration Date Tissue Prepared/Processed By Mechanical Field Engineer Paperwork Completed Implant Type Comment Last Modified By: KAMERON CORREA RN LONGSWORTH, GARY, RN LONGSWORTH, GARY, RN 03/21/21 08:19:39 03/21/21 08:20:33 03/21/21 08:43:38 Entry 4 Type Implant (Synthetic) Implant Log Implant Type Hardware Tissue Implant Type Implant HEAD FEM BIOLOX V40 Identification [id number] Description Implant Quantity 1 Implant Site RIGHT HIP Implant Identification Model Number Implant Identification Serial Number Implant [id number] Identification Lot Number Implant Nikita:Nikita Identification Orthopaedics Mechanical Field Engineer Name: Implant [id number] Identification Catalog Number Implant Size Implant Has an Yes Expiration Date Implant Expiration 09/27/25 Date Wasted Radioactive Material Time Implanted Tissue Implant Continue for Tissue Implant Documentation Tissue Identification Number Graft Prep Per Mechanical Field Engineer Instructions: Tissue Preparation Method: Reconstitution Solution: Reconstitution Solution Lot Number Reconstitution Solution Expiration Date: Thawing Solution Thawing Solution Lot Number Thawing Solution Expiration Date Preparation Materials, Other Preparation Materials, Other Lot Number Preparation Materials, Other Expiration Date Tissue Prepared/Processed By Mechanical Field Engineer Paperwork Completed Implant Type Comment Last Modified By: KAMERON CORREA RN 03/21/21 08:47:34 [facility] IntraOp Implant Log Audit 03/21/21 08:47:34 Equipment Worker: MARY Modifier: MARY <+> 4 Implant Identification Description <+> 4 Implant Identification Lot Number <+> 4 Implant Identification Mechanical Field Engineer Name: <+> 4 Implant Expiration Date <+> 4 Implant Site <+> 4 Implant Quantity <+> 4 Implant Identification Catalog Number <+> 4 Implant Type <+> 4 Implant Has an Expiration Date <+> 4 Type 03/21/21 08:43:38 Equipment Worker: MARY Modifier: LONGGA <+> 3 Implant Identification Description <+> 3 Implant Identification Lot Number <+> 3 Implant Identification Mechanical Field Engineer Name: <+> 3 Implant Expiration Date <+> 3 Implant Site <+> 3 Implant Quantity <+> 3 Implant Identification Catalog Number <+> 3 Implant Type <+> 3 Implant Has an Expiration Date <+> 3 Type 03/21/21 08:20:33 Equipment Worker: LONGGA Modifier: LONGGA <+> 2 Implant Identification Description <+> 2 Implant Identification Lot Number <+> 2 Implant Identification Mechanical Field Engineer Name: <+> 2 Implant Expiration Date <+> [...] 1000units/ml SEALR AQUAMANTYS BIPLR CLONIDINE-10ML 10ml - [id number] Combo Med List 1 - Combo Med Time Administered Route of CELLSAVER BENCH ASSEMBLER OPERATOR INJECTION, RIGHT HIP Administration Dose Dose 60938 0.8 Unit of Measure units ml Volume [...] 0.5% 30ml vial Xylocaine 1% w/ - [id number] epinephrine 1:200,000 30ml vial - [id number] Combo Med List 1 - Combo Med [...] Yes Checked Positioning Devices Arm Board, Table, [place], Safety Strap, Chest Device Position HANA TABLE; PERINEAL POST Positioned By SIS SHAH CRNA-ANS, DARY GAMEZ JR, JR, MD-ORT, KAMERON CORREA, MAGALYS, Mati Fuentes, SUPERVISOR CHAR HOUSE Position Verified Positioning Yes Verified by Anesthesia [...] [facility] IntraOp Skin Prep Audit 03/21/21 10:21:05 Equipment Worker: MARY Modifier: LONGGA 1 <*> Prep Agents [...] I - Clean Last Modified By: KAMERON CORRAE RN 03/21/21 07:53:18 [facility] IntraOp Surgical Procedures Audit 03/21/21 09:13:33 Equipment Worker: LONGGA Modifier: LONGGA <+> 1 Stop S[facility] IntraOp Temp Regulation Devices Entry 1 Temp Regulation Temperature Conductive warming Regulation Device device placed over patient Temperature 4764 Regulation Device Serial/Unit Number Temperature Upper body Regulation Site Temperature Device 43 Setting Temperature SIS SHAH, Regulation Device MANAGER MONITORING-ANS Applied by Last Modified By: KAMERON CORREA [...] Fluoroscopy Fluoroscopy Type C-Arm Site RIGHT HIP Restaurant Crew Member Name Sarah Biggs, Director Of Radio Services Protective Devices Yes Used Last Modified By: [...]
--- OUTSIDE RECORDS SUMMARY | 2025-07-26 08:12 | XMS_ITS | Clinical Summary ---
Author Organization [employer] ([place], [place], [place], [place]) Address [address] [place] [address] Care Team Providers Care Deli Department Manager Name Role Phone Unavailable Primary Care [...]
--- OUTSIDE RECORDS SUMMARY | 2025-07-26 08:12 | XMS_ITS | Encounter Summary ---
Author Organization [employer] ([place], [place], [place], [place]) Address [address] [place] [address] Care Team Providers Care Air And Hydronic Balancing Technician Name Role Phone Unavailable Primary Care Provider Unavailabl e Encounter Details Date Type Department Care Team (Late st Contact Info) Description 03/21/2021 Transcribed Document [facility] Family [place] [facility] [place] [address] ProviderLibrado MD [address] [place] [address] Social History Tobacco Use Types Packs/Day [...] ARI LOU OTR/Heaven - 03/21/2021 11:45 EDT Can Line Operator Goals, OT Other LTG Grid Goal #1 [...]
--- OUTSIDE RECORDS SUMMARY | 2025-07-26 08:12 | XMS_ITS | Encounter Summary ---
Author Organization [employer] ([place], [place], [place], [place]) Address [address] [place] [address] Care Team Providers Care Data Analytics Specialist Name Role Phone Unavailable Primary Care Provider Unavailabl e Encounter Details Date Type Department Care Team (Late st Contact Info) Description 03/21/2021 Transcribed Document [facility] Family Medicine [facility] [place] [address] ProviderLibrado MD [address] [place] [address] Social History Tobacco Use Types Packs/Day [...] JOIE TAVARES/Sex: 1960 Female Med Rec #: [id number] Physician: DARY GAMEZ JR, JR, MD-ORT Financial #: [id number] Pt. Type: O Room/Bed: EAS/1 Admit/Disch: 03/21/21 04:39:00 - Institution: [facility] PreOp Case Times Entry 1 In Preop 03/21/21 05:20:00 Ready for Holding n/a Room Patient Ready for 03/21/21 06:35:00 Surgery Patient Out of Preop 03/21/21 07:26:00 Patient Out of n/a Holding Room Last Modified By: OMI SELBY 03/21/21 09:40:02 S[facility] PreOp Case Times Audit 03/21/21 09:40:02 Ball Shagger: EDWARD Modifier: [email or web address] <+> 1 Patient Out of Preop Finalized By: OMI SELBY Document Signatures Signed By: OMI SELBY 03/21/21 09:40 Electronically signed by Dilia [facility] Conversion Ledger Poster Cerner at 03/21/2023 12:55 PM CDT documented in this encounter Plan of Treatment Not on file documented as of this encounter Visit Diagnoses Not on filedocumented in this encounter
--- OUTSIDE RECORDS SUMMARY | 2025-07-26 08:12 | XMS_ITS | Referral Summary ---
Author Organization [employer] ([place], [place], [place], [place]) Address [address] [place] [address] Care Team Providers Care Commercial Lending Assistant Name Role Phone Unavailable Primary Care [...]
--- OUTSIDE RECORDS SUMMARY | 2025-07-26 08:12 | XMS_ITS | Encounter Summary ---
Author Organization [employer] ([place], [place], [place], [place]) Address [address] [place] [address] Care Team Providers Care Second Worker Name Role Phone Unavailable Primary Care Provider Unavailabl e Encounter Details Date Type Department Care Team (Late st Contact Info) Description 03/21/2021 Transcribed Document [facility] [place] [facility] [place] [address] ProviderLibrado MD [address] [place] [address] Social History Tobacco Use Types Packs/Day [...] BARBARA NOYOLA, PT - 03/21/2021 12:00 EDT Fdc Goals Other PT LTG Grid Goal #1 [...]
--- OUTSIDE RECORDS SUMMARY | 2025-07-26 08:12 | XMS_ITS | Encounter Summary ---
Author Organization [email or web address] ([place], [place], [place], [place]) Address [address] [place] [address] Care Team Providers Care Funeral Arrangement Director Name Role Phone Unavailable Primary Care Provider Unavailabl e Encounter Details Date Type Department Care Team (Late st Contact Info) Description 03/21/2021 Transcribed Document [facility] [place] [facility] [place] [address] ProviderLibrado MD [address] [place] [address] Social History Tobacco Use Types Packs/Day [...] : Sandip Tavares Emergency Contact #1 or [phone] Emergency Contact #1 Relationship : Spouse Emergency Contact #2 : . Emergency Contact #2 Phone Number : . Emergency Contact #2 Relationship : . Information Obtained From : Patient Primary Language : Malian Preferred Communication Mode : Verbal Communication Barrier : None Senior Loss Control Specialist Needed : No Currently Lactating : [...] Level : 46 or > High Risk [place] Fall Interventions : Adequate lighting, Assistive devices [...] Source : Measured Height Entry Format : [place] Height, Feet : 5 ft(Converted to: 152 cm, 60 Inch) Height, Inches : 7 Inch(Converted to: 0 ft 7 Inch, 17.78 cm) Clinical Height : 170.18 cm Weight Source : Standing scale Weight Entry Format : [place] Clinical Dosing Weight : 93.18 kg Weight, Pounds : 205 lb Body Surface Area (BSA) : 2.05 m2 Body Mass Index : 32.2 kg/m2 (HI) [place] Body Weight : 61 kg Beatrice Torres [...] Beatrice Torres RN - 03/21/2021 10:42 EDT Center Suicide Severity Rating Scale (C-SSRS) CSSRS Past [...]
--- OUTSIDE RECORDS SUMMARY | 2025-07-26 08:12 | XMS_ITS | Encounter Summary ---
Author Organization [employer] ([place], [place], [place], [place]) Address [address] [place] [address] Care Team Providers Care Senior Statistical Programmer Name Role Phone Unavailable Primary Care Provider Unavailabl e Encounter Details Date Type Department Care Team (Late st Contact Info) Description 03/21/2021 Transcribed Document [facility] Family Medicine [address] [place] [address] ProviderLibrado MD [address] [place] [address] Social History Tobacco Use Types [...]
--- OUTSIDE RECORDS SUMMARY | 2025-07-26 08:13 | XMS_ITS | Encounter Summary ---
Author Organization [employer] ([place], [place], [place], [place]) Address [address] [place] [address] Care Team Providers Care Cupola Liner Name Role Phone Unavailable Primary Care Provider Unavailabl e Encounter Details Date Type Department Care Team (Late st Contact Info) Description 03/22/2021 Transcribed Document [facility] [place] [facility] [place] [address] ProviderLibrado MD [address] [place] [address] Social History Tobacco Use [...] Librado ProviderMD - 03/22/2021 12:43 PM CDT [place] [id number] JOIE HAQ :1960 Visit Time:03/21/2021 Your Visit [...] Instructions From Your Care Team Community Services: [facility] Physical Therapy Home Health Services: [facility] Medical Equipment for Home Use: [...] When 04/03/2021 09:15 AM EDT Where: [address] [facility] [address] [place] [address]- Medications What How Much When Instructions Next Dose aspirin (aspirin 81 mg oral delayed release tablet) 1 Tablet(s) Oral Two Times A Day Duration: 45 Day(s) cefadroxil (cefadroxil 500 mg oral capsule) 1 Capsule(s) Oral Every 12 hours Duration: 6 Day(s) docusate (docusate sodium 100 mg oral tablet) 1 Tablet(s) Oral Two Times A Day as needed for for constipation Pickup at [facility] oxyCODONE (oxyCODONE 5 mg oral tablet) [...] as needed for migraine headache Pharmacy Information [facility]: [address] [phone] Take your medications faithfully. Do NOT skip [...] Millet. Bran muffins. Popcorn. Talpa wafer crackers. Vegetables Sweet potatoes. Spinach. Kale. Artichokes. Cabbage. Broccoli. Green peas. Carrots. Squash. Fruits Berries. Pears. Apples. Oranges. Avocados. Prunes and raisins. Dried figs. Meats and Other Protein Sources Remer, kidney, romero, and soy beans. Split peas. [...] humza has 11 g of protein. ??? Bodfish seeds ??? 1 oz has 5.5 g [...] floor. ??? Place frequently used items in ycpi-zy-xrswj places ??? Keep electrical cables out of [...] ??? Using the bathroom. ??? Using household online content editor or toxic chemicals. ??? Touching or taking [...] through the local health department and the [place] Department for Public Health. Those organizations are [...] and need to call 911, notify the dehydration plant operator that you have, or think you [...] clean your hands with an alcohol-based hand cyber policy and strategy planner that contains at least 60% alcohol. Clean your hands often. ??? Wash hands: Wash your hands often with soap and water for at least 20 seconds when visibly dirty. This is especially important after blowing your nose, coughing or sneezing, and going to the bathroom, and before eating or preparing food. ??? Hand cyber policy and strategy planner: Use an alcohol-based hand cyber policy and strategy planner with at least 60% alcohol, covering all [...] and water or put them in the assisted living director. Clean all high-touch surfaces every day. [...] or body fluids on them. ??? Household online content editor and disinfectants: Clean the area or item [...] list of disinfectants can be found here: https://www.epa.gov/pesticide-registration/htsh-a-rioouxpnvwjqg-lij-azwkbse-lb rs-cov-2 ondansetron (oral) (on ELAINA se rc) [...] may report side effects to FDA at 3-403-HHM-9450. What other drugs will affect ondansetron? Ondansetron [...] interact with ondansetron. This includes prescription and epfa-xqe-nkqsocm medicines, vitamins, and herbal products. Give a [...] to ensure that the information provided by [employer]. ('[employer]') is accurate, up-to-date, and complete, but no guarantee is made to that effect. Drug information contained herein may be time sensitive. [employer] information has been compiled for use by healthcare practitioners and consumers in the [place] and therefore [employer] does not warrant that uses outside of the [place] are appropriate, unless specifically indicated otherwise. [employer]'s drug information does not endorse drugs, diagnose patients or recommend therapy. [employer] drug information is an informational resource designed [...] effective or appropriate for any given patient. [facility] does not assume any responsibility for any aspect of healthcare administered with the aid of information [facility] provides. The information contained herein is not intended to cover all possible uses, directions, precautions, warnings, drug interactions, allergic reactions, or adverse effects. If you have questions about the drugs you are taking, check with your doctor, nurse or pharmacist. Copyright 3707-0558 [employer]. Version: 13.01. Revision Date: 09/20/2016. cephalexin (sef [...] may report side effects to FDA at 7-454-AQP-7979. What other drugs will affect cephalexin? Tell your doctor about all your other medicines, especially: ?? metformin; or ?? probenecid. This list is not complete. Other drugs may affect cephalexin, including prescription and nfts-ifn-lmkjvcs medicines, vitamins, and herbal products. Not all [...] to ensure that the information provided by [employer]. ('[employer]') is accurate, up-to-date, and complete, but no guarantee is made to that effect. Drug information contained herein may be time sensitive. [employer] information has been compiled for use by healthcare practitioners and consumers in the [place] and therefore [employer] does not warrant that uses outside of the [place] are appropriate, unless specifically indicated otherwise. [employer] drug information does not endorse drugs, diagnose patients or recommend therapy. [employer] drug information is an informational resource designed [...] effective or appropriate for any given patient. [employer] does not assume any responsibility for any aspect of healthcare administered with the aid of information [employer] provides. The information contained herein is not intended to cover all possible uses, directions, precautions, warnings, drug interactions, allergic reactions, or adverse effects. If you have questions about the drugs you are taking, check with your doctor, nurse or pharmacist. Copyright 3777-0543 [employer]. Version: 10.. Revision Date: 12/04/2020. acetaminophen (oral) (a SEET a MIN oh fen) Actamin, Anacin AF, Aurophen, Bromo Callender, Children's Tylenol, Mapap, M-Pap, Pharbetol, Silapap Childrens, [...] is a pain reliever and a fever high school academic coach. There are many brands and forms of [...] may report side effects to FDA at 6-738-TIY-3473. What other drugs will affect acetaminophen? Other drugs may affect acetaminophen, including prescription and ktzh-sle-cxoybgb medicines, vitamins, and herbal products. Tell your [...] to ensure that the information provided by [employer]. ('[employer]') is accurate, up-to-date, and complete, but no guarantee is made to that effect. Drug information contained herein may be time sensitive. [employer] information has been compiled for use by healthcare practitioners and consumers in the [place] and therefore [employer] does not warrant that uses outside of the [place] are appropriate, unless specifically indicated otherwise. [employer]'s drug information does not endorse drugs, diagnose patients or recommend therapy. [employer] drug information is an informational resource designed [...] effective or appropriate for any given patient. [employer] does not assume any responsibility for any aspect of healthcare administered with the aid of information [employer] provides. The information contained herein is not intended to cover all possible uses, directions, precautions, warnings, drug interactions, allergic reactions, or adverse effects. If you have questions about the drugs you are taking, check with your doctor, nurse or pharmacist. Copyright 3854-9942 [employer]. Version: 21.04. Revision Date: 07/07/2020. meloxicam (oral/injection) [...] may report side effects to FDA at 2-101-EFI-1440. What other drugs will affect meloxicam? Ask [...] drugs may affect meloxicam, including prescription and rjrf-zpr-styatll medicines, vitamins, and herbal products. Not all [...] to ensure that the information provided by [employer]. ('[employer]') is accurate, up-to-date, and complete, but no guarantee is made to that effect. Drug information contained herein may be time sensitive. [employer] information has been compiled for use by healthcare practitioners and consumers in the [place] and therefore [employer] does not warrant that uses outside of the [place] are appropriate, unless specifically indicated otherwise. [employer] drug information does not endorse drugs, diagnose patients or recommend therapy. [employer] drug information is an informational resource designed [...] effective or appropriate for any given patient. [employer] does not assume any responsibility for any aspect of healthcare administered with the aid of information [employer] provides. The information contained herein is not intended to cover all possible uses, directions, precautions, warnings, drug interactions, allergic reactions, or adverse effects. If you have questions about the drugs you are taking, check with your doctor, nurse or pharmacist. Copyright 3012-6881 [employer]. Version: 14.. Revision Date: 10/03/2020. docusate (oral/rectal) [...]
--- OUTSIDE RECORDS SUMMARY | 2025-07-26 08:13 | XMS_ITS | Encounter Summary ---
Author Organization [employer] ([place], [place], [place], [place]) Address [address] [place] [address] Care Team Providers Care Lean Manufacturing Coordinator Name Role Phone Unavailable Primary Care Provider Unavailabl e Encounter Details Date Type Department Care Team (Late st Contact Info) Description 03/22/2021 Transcribed Document [facility] [place] Family Medicine [place] [address] ProviderLibrado MD [address] [place] [address] Social History Tobacco Use Types Packs/Day [...] Address: Phone Number: [facility] [address], [place], [address] Discharge Options Discussed with Patient [...] Referral sent via Norberto. patient also choose [facility] for her outpatient PT. DME: [...]
--- OUTSIDE RECORDS SUMMARY | 2025-07-26 08:13 | XMS_ITS | Encounter Summary ---
Author Organization [employer] ([place], [place], [place]) Address [address] [place] [address] Care Team Providers Care Environmental Services Associate Name Role Phone Unavailable Primary Care Provider Unavailabl e Encounter Details Date Type Department Care Team (Late st Contact Info) Description 03/22/2021 Transcribed Document [facility] [place] [facility] [place] [address] ProviderLibrado MD [address] [place] [address] Social History Tobacco Use Types [...] Mayela Granados, Rn - 03/22/2021 3:10 EDT Electronically signed by Kristina Dobbs Conversion Paid Search Marketing Analyst Cerner at 03/21/2023 1:12 PM CDT documented in this encounter Plan of Treatment Not on file documented as of this encounter Visit Diagnoses Not on filedocumented in this encounter
--- OUTSIDE RECORDS SUMMARY | 2025-07-26 08:15 | XMS_ITS | Encounter Summary ---
Author Organization [employer] ([place]) Address [address] [place] [address] Care Team Providers Care Bark Tanner Name Role Phone Unavailable Primary Care Provider Unavailabl e Encounter Details Date Type Department Care Team (Late st Contact Info) Description 03/08/2021 Transcribed Document [facility] [place] [facility] [place] [address] ProviderLibrado MD [facility] [place] [address] Social History Tobacco Use Types [...] EDT Electronically signed by Kristina Dobbs Conversion Quality Assurance Supervisor Trim Cerner at 03/21/2023 1:20 PM CDT documented in this encounter Plan of Treatment Not on file documented as of this encounter Visit Diagnoses Not on filedocumented in this encounter
--- OUTSIDE RECORDS SUMMARY | 2025-07-26 08:15 | XMS_ITS | Encounter Summary ---
Author Organization [employer] ([place], [place], [place], [place]) Address [address] [place] [address] Care Team Providers Care Gis Programmer Name Role Phone Unavailable Primary Care Provider Unavailabl e Encounter Details Date Type Department Care Team (Late st Contact Info) Description 03/08/2021 Transcribed Document [facility] [place] [address] ProviderLibrado MD [address] [place] [address] Social History Tobacco Use Types Packs/Day [...] Appearance CLEAR2 03/08/2021 09:44 EDT Urine Specific [place] 1.012 03/08/2021 09:44 EDT Urine pH Dipstick [...]
--- OUTSIDE RECORDS SUMMARY | 2025-07-26 08:15 | XMS_ITS | Encounter Summary ---
Author Organization [employer] ([place], [place], [place]) Address [address] [place] [address] Care Team Providers Care Manager Call Name Role Phone Unavailable Primary Care Provider Unavailabl e Encounter Details Date Type Department Care Team (Late st Contact Info) Description 03/22/2021 Transcribed Document [facility] [place] [address] [place] [address] ProviderLibrado MD [address] [place] [address] Social History Tobacco Use Types [...] Historical ProviderMD - 03/22/2021 2:00 AM CDT Injection Machine Operator Details Entered On: 03/22/2021 1:18 EDT Performed [...]
--- OUTSIDE RECORDS SUMMARY | 2025-07-26 08:15 | XMS_ITS | Encounter Summary ---
Author Organization [employer] ([place], [place]) Address [address] [place] [address] Care Team Providers Care Card Grader Name Role Phone Unavailable Primary Care Provider Unavailabl e Encounter Details Date Type Department Care Team (Late st Contact Info) Description 03/22/2021 Transcribed Document [facility] [place] [facility] [place] [place] [address] ProviderLibrado MD [facility] [place] [place] [address] Social History Tobacco Use [...] Patient was discharged home follow up from [facility] on 03/22/21 having met 3/3 acute therapy goals. Patient will have assistance at home from family members as needed. At time of discharge patient was independent with bed mobility, SBA for transfers with RWx, ambulated ~ 200' with RWx SBA, safely ascended/descended 4 steps using HIM MANAGER/CGA, safely ascended/descended 1 platform step with RWx CGA, and participated with LE exercises. Patient would continue to benefit from further skilled PT services to improve LE strength, gait mechanics, and functional mobility to maximize recovery from right anterior SALUD. I agree with above D/C summary. Bonnie Manuel, PT LYLE AYLIN B., PT - 03/22/2021 16:12 EDT Halfway Goals Other PT LTG Grid Goal #1 [...] EDT 03/22/2021 EDT 03/22/2021 EDT PABLO ABDALLA, SPEEDER FRAME TENDER - 03/22/2021 15:58 EDT PABLO ABDALLA, SPEEDER FRAME TENDER - 03/22/2021 15:58 EDT PABLO ABDALLA, SPEEDER FRAME TENDER - 03/22/2021 15:58 EDT documented in this encounter Plan of Treatment Not on file documented as of this encounter Visit Diagnoses Not on filedocumented in this encounter
--- OUTSIDE RECORDS SUMMARY | 2025-07-26 08:15 | XMS_ITS | Encounter Summary ---
Author Organization [employer] ([place], [place]) Address [address] [place] [address] Care Team Providers Care Chief Technical Officer Name Role Phone Unavailable Primary Care Provider Unavailabl e Encounter Details Date Type Department Care Team (Late st Contact Info) Description 03/22/[address] [facility] [place] [facility] [place] [address] ProviderLibrado MD [address] [place] [address] Social History Tobacco Use Types [...]
--- OUTSIDE RECORDS SUMMARY | 2025-07-26 08:15 | XMS_ITS | Encounter Summary ---
Author Organization [employer] ([place]) Address [address] [place] [address] Care Team Providers Care Fishing Line Winding Machine Operator Name Role Phone Unavailable Primary Care Provider Unavailabl e Encounter Details Date Type Department Care Team (Late st Contact Info) Description 03/22/2021 Transcribed Document [facility] [place] [facility] [place] [address] ProviderLibrado MD [address] [place] [address] Social History Tobacco Use Types Packs/Day [...] : Sandip Tavares Emergency Contact #1 or [phone] Emergency Contact #1 Relationship : Spouse Emergency [...] Referral sent via Norberto. patient also choose [facility] for her outpatient PT. DME: patient has a Frw and raised toilet seat. CM: no further CM needs identifed. DOC: designation of choice sined and placed in chart. TRANS: to transport patient home. LASHAE LUGO RN - 03/22/2021 11:23 EDT Electronically signed by Kristina Dobbs Conversion Warehouse Logistics Coordinator Isac at 03/21/2023 1:18 PM CDT documented in this encounter Plan of Treatment Not on file documented as of this encounter Visit Diagnoses Not on filedocumented in this encounter
--- OUTSIDE RECORDS SUMMARY | 2025-07-26 08:15 | XMS_ITS | Encounter Summary ---
Author Organization [employer] ([place], [place], [place], [place]) Address [address] [place] [address] Care Team Providers Care Animal Caretaker Supervisor Name Role Phone Unavailable Primary Care Provider Unavailabl e Encounter Details Date Type Department Care Team (Late st Contact Info) Description 01/25/2021 Transcribed Document [facility] [place] [facility] [place] [address] ProviderLibrado MD [address] [place] [address] Social History Tobacco Use Types Packs/Day Years Used Date Smoking Tobacco: Never Assessed Comments Unknown Sex and Gender Information Value Date Recorded Sex Assigned at Not on file Legal Sex Female 1:10 PM CDT Gender Identity Not on file Sexual Orientation Not on file documented as of this encounter Miscellaneous Notes * Cerner Conversion Note - Librado ProviderMD - 01/25/2021 11:00 AM CLINICAL RN LIAISON Patient: JOIE TAVARES Age: 60 Years Sex: [...] Lymph # 2.13 K/uL 01/25/2021 11:44 EST Daniels % 7.4 % 01/25/2021 11:44 EST Daniels # 0.57 K/uL 01/25/2021 11:44 EST Eos [...] CLOUDY2 (Abnormal) 01/25/2021 11:44 EST Urine Specific [place] 1.024 01/25/2021 11:44 EST Urine pH Dipstick [...] Indicated 01/25/2021 11:44 EST Electronically signed by [facility] Conversion Surfacing Machine Operator Cerner at 03/21/2023 1:13 PM CDT documented in this encounter Plan of Treatment Not on file documented as of this encounter Visit Diagnoses Not on filedocumented in this encounter
[2025-07-26 08:31] LABS: Hematocrit 41.2 % (37.0-47.0); Hemoglobin 13.7 g/dL (12.2-16.2); Immature Granulocytes % 0.6 %; Mean Corpuscular HGB Conc 33.3 g/dL (31.8-35.4); Mean Corpuscular Hemoglobin 31.0 pg (27.0-31.2); Mean Corpuscular Volume 93.2 fl (81-99); Nucleated Red Blood Cells % 0 %; Platelet Count 248 K/mm3 (142-424); Red Blood Count 4.42 M/mm3 (4.20-5.40); Red Cell Distribution Width-SD 46.9 fL; White Blood Count 8.7 K/mm3 (4.8-10.8)
[2025-07-26 08:32] LABS: Chloride 109 mmol/L (98-107); Potassium 4.4 mmoL/L (3.5-5.1); Sodium 140 mmol/L (136-145)
[2025-07-26 08:35] LABS: Anion Gap 7.4 mEq/L (5-15); Blood Urea Nitrogen 26 mg/dl (7-17); Calcium 8.6 mg/dl (8.4-10.2); Carbon Dioxide 28 mmol/L (22.0-30.0); Creatinine,Serum 0.80 mg/dl (0.52-1.04); Estimated Glomerular Filt Rate 72 ml/min (>60); GFR (African American) 88 ML/MIN (>60); Glucose 87 mg/dl (74-100)
[2025-07-26 08:41] LABS: C-Reactive Protein 2.3 mg/L (0-4)
[2025-07-26 09:30] LABS: Vancomycin,Trough 16.8 ug/mL (5.0-10.0)
== END 2025-07-26 08:35 | disposition home or self-care (01) ==
LOC: INF 08:08
PROVIDERS: PCP Nurse Practitioner; Visit Provider Podiatrist
DX: L97.529 Non-pressure chronic ulcer of other part of left foot with unspecified severity (principal); M86.172 Other acute osteomyelitis, left ankle and foot
CPT/HCPCS: 36592; 80048; 80202; 85025; 85651; 86140; 96523

== ENCOUNTER 2025-07-27 09:53 | Day surgery (SDC) | payer BC, SELFPAY ==
[2025-07-27 10:20] VITALS: BMI 31.3
[2025-07-27 10:24] VITALS: BP 158/63; PULSE 64; RESP 16; TEMP 36.7; O2SAT 95
--- NOTE | 2025-07-27 10:48 | EXP.OP.NOTE ---
Date of procedure: 07/27/25 Pre-op Diagnosis:: Left foot surgical wound Left venous stasis ulcer B/L venous insufficiency RA Post-op Diagnosis:: Same Procedure performed:: [facility] Application of skin graft substitute leg (58777-57019) Surgical prep of skin graft recipient site (37111) Wound debridement (77612) Application on wound vac (84181) Surgeon:: Mony Peterson DPM Anesthesia: none Estimated blood loss (mL): 2 Clinical Note:: Pre-Op indications: Patient is a 64-year-old female with a left foot surgical wound/venous statsis ulcer. Patient has failed conservative treatment, including multiple debridements, various wound dressings, antibiotics, immobilization, wound vac therapy. Patient has seen both [facility] wound care clinic and [facility] (patient unable to tolerate HBOT chamber). Patient had recent CT left foot which showed suspected osteomyelitis. She has surgery 06/16/25 for bone biopsy, wound debridemet, wound vac application. She has had several rounds of oral antibiotics: Cipro, Levo, Doxy, topical gentamicin. Referral for Infectious Disease made, made on culture results. Started PICC, IV Vanco on 07/06/25. She saw ID 07/12/25 and they did not make any changes to the current treatment plan. She had surgery for wound debridement, Organogenesis Apligraf application #1 on 06/29/25, clary #2 on 07/06/25, clary #3 on 07/13/25, clary #4 on 07/20/25. We discussed staged graft application surgery. All risks and benefits were discussed including but not limited to: damage to blood vessels and nerves, bleeding, infection, wound complications, need for further surgery, implant/graft failure, need for removal of implant/graft, allergic reaction, prolonged or permanent swelling of the extremity, prolonged or permanent pain or deformity, temporary or permanent toe angulation/deformity, CRPS/RSD, DVT/PE, and anesthetic complications including anaphylaxis or . Patient understands if wound/graft gets infected, it could lead to prolonged oral or IV antibiotics or increased risk of worsening osteomyelitis, which could lead to possible loss of partial foot or even BKA. No guarantees were given. All questions fully answered. The patient verbalized understanding and agreed to proceed with surgery. Verbal and written consent was obtained. Operative findings:: Left foot open wound. 1st MTPJ incision has less edema. Erythema resolved. Some excoriation secondary to itching to the dorsal lateral foot, this has improved. The 5th met abrasion has improved. Overall some improvement in appearance of both surrounding skin and wound with graft and wound vac therapy. No purulence, drainage, malodor or ascending cellulitis. Hallux is angulated medially. Previously there was exposed bone with exposed plate in the distal wound at the proximal phalanx level. The screw is no longer exposed. The phalanx bone distally was no longer exposed at the HIPJ level. The plate/hardware was still visible but intact with no signs of screw loosening or backing out from the plate. Sharp excisional full thickness wound debridement with 15' blade, forceps, curette thru skin into subq into deep fascia. Post debridement: Left medial foot wound: 0.3 x 0.2cm of exposed plate medially. Post: 100% granular, 2.1 x 0.7 x 0.25cm. Minimal bleeding with debridement. No jhonny purulence expressed. Operative note:: On this date and time patient was deemed an appropriate surgical candidate. With informed consent signed, the patient was taken to the local procedure operating theater room. The patient was positioned supine. No anesthesia was induced. No tourniquet used. Left lower extremity was prepped and draped in normal sterile fashion. PICC intact, IV Vanco 1g held (getting twice daily home infusion). Left medial dorsal foot wound debridement: Sharp excisional full-thickness debridement with 15 blade, curette down through skin layer, subcutaneous tissue into/including deep fascia. Proximal phalanx bone was more covered with exposed plate/no exposed distal screw. No purulence or SOI noted. The skin edges were debrided with 15' blade, minimal bleeding noted. The wound was flushed with gentamicin irrigation. Skin cleansed with saline. Mastisol applied around the wound edges. Left foot application of Apligraf (Organogenesis wound graft): Farzana collagen was placed directly over the exposed plate within the wound bed. Graft was prepared in standard fashion. Graft was cut and place dorsally linearly over wound. The other piece of the graft was placed over the distal hallux horizontal. The entire graft (44sq cm) was utilized. The graft was placed over the open wound including the collagen and rest of the wound bed (and circumferentially around the surrounding skin as the graft was larger than the wound) and secured with Steri-Strips. Adaptic was applied over the graft. Application of wound vac: Black foam cut to size and applied over adaptic. A [employer] medical wound VAC was applied in standard technique at 125 mmHg medium continuous pressure. A gauze, Shaan were applied to left foot. The patient tolerated the procedure well, without complications. Materials: Organogenesis Aligraf wound graft x1 (44sq cm), [employer] wound vac, Promogran Farzana collagen x1 (4.34sq ) Discharge/Plan: Ok to discharge home when ready and vss. Patient is to maintain dressing clean dry and intact. Elevate on two pillows. Minimize weight bearing. Ideally PWB to heel in fracture boot/post op shoe with walker. Follow up on 08/02/25 for wound re-evaluation and labs. Discussed possible collagen dressing w/wout wound vac next week. Continue PICC, IV vancomycin until 07/27/2025. Hold IV antibiotics, maintain PICC clean/intact. Recheck labs 08/01/25-08/02/2025. If WBC, ESR, CRP remain within normal limits-plan to pull PICC line next week. Condition: stable Disposition: same day Complications:: None
[2025-07-27] MEDS: GENTAMICIN 80 MG/2 ML VIAL (10:55)
[2025-07-27 11:31] VITALS: BP 157/67; PULSE 58; RESP 17; TEMP 36.2; O2SAT 99
== END 2025-07-27 11:33 | disposition home or self-care (01) ==
PROVIDERS: PCP Nurse Practitioner; Visit Provider Podiatrist
PROC: (CPT 15002; principal; 2025-07-27 10:50)
DX: I83.025 Varicose veins of left lower extremity with ulcer other part of foot (principal); I87.2 Venous insufficiency (chronic) (peripheral); M79.7 Fibromyalgia; I10 Essential (primary) hypertension; G47.33 Obstructive sleep apnea (adult) (pediatric); M06.9 Rheumatoid arthritis, unspecified; Z88.8 Allergy status to other drugs, medicaments and biological substances; Z88.5 Allergy status to narcotic agent; Z91.010 Allergy to peanuts; Z79.899 Other long term (current) drug therapy
CPT/HCPCS: 15002; 15271; 15272; J1580; Q4101

== ENCOUNTER 2025-08-02 08:59 | Outpatient (CLI) | payer BC, SELFPAY ==
[2025-08-02 09:16] LABS: Hematocrit 43.6 % (37.0-47.0); Hemoglobin 14.6 g/dL (12.2-16.2); Immature Granulocytes % 0.3 %; Mean Corpuscular HGB Conc 33.5 g/dL (31.8-35.4); Mean Corpuscular Hemoglobin 31.2 pg (27.0-31.2); Mean Corpuscular Volume 93.2 fl (81-99); Nucleated Red Blood Cells % 0 %; Platelet Count 254 K/mm3 (142-424); Red Blood Count 4.68 M/mm3 (4.20-5.40); Red Cell Distribution Width-SD 47.0 fL; White Blood Count 9.6 K/mm3 (4.8-10.8)
--- OUTSIDE RECORDS SUMMARY | 2025-08-02 09:16 | XMS_ITS | Encounter Summary ---
Author Organization [employer] ([place], [place], [place], [place]) Address [address] [place] [address] Care Team Providers Care Delinquent Tax Collector Assistant Name Role Phone Unavailable Primary Care Provider Unavailabl e Encounter Details Date Type Department Care Team (Late st Contact Info) Description 03/22/2021 Transcribed Document [facility] [place] [facility] [address] ProviderLibrado MD [address] [place] [address] Social History Tobacco Use Types [...] Barley. Bulgur wheat. Millet. Bran muffins. Popcorn. [place] wafer crackers. Vegetables Sweet potatoes. Spinach. Kale. Artichokes. Cabbage. Broccoli. Green peas. Carrots. Squash. Fruits Berries. Pears. Apples. Oranges. Avocados. Prunes and raisins. Dried figs. Meats and Other Protein Sources [place], kidney, romero, and soy beans. Split peas. [...] humza has 11 g of protein. ?? [place] seeds ??? 1 oz has 5.5 g [...] floor. ?? Place frequently used items in hgds-bu-tfbqj places ?? Keep electrical cables out of [...] ?? Using the bathroom. ?? Using household reforestation worker or toxic chemicals. ?? Touching or taking [...] all positive cases are reported through the [facility] health department and the [...] and need to call 911, notify the flavoring machine operator that you have, or think [...] clean your hands with an alcohol-based hand diamond merchant that contains at least 60% alcohol. Clean your hands often. ??? Wash hands: Wash your hands often with soap and water for at least 20 seconds when visibly dirty. This is especially important after blowing your nose, coughing or sneezing, and going to the bathroom, and before eating or preparing food. ??? Hand diamond merchant: Use an alcohol-based hand diamond merchant with at least 60% alcohol, covering all [...] and water or put them in the faculty neuropsychologist. Clean all high-touch surfaces every day. Clean [...] or body fluids on them. ??? Household reforestation worker and disinfectants: Clean the area or item [...] list of disinfectants can be found here: https://www.epa.gov/pesticide-registration/rzat-r-ahskmwdlaqgwn-ojj-skpwmlv-gh rs-cov-2 Electronically signed by Kristina Dobbs Conversion Air Pollution Control Engineer Isac at 03/21/2023 1:10 PM CDT documented in this encounter Plan of Treatment Not on file documented as of this encounter Visit Diagnoses Not on filedocumented in this encounter
--- OUTSIDE RECORDS SUMMARY | 2025-08-02 09:16 | XMS_ITS | Clinical Summary ---
Author Organization [facility] Address [address] [place] [address] Phone Care Team Providers Care Cook Helper Pastry Name Role Phone Marcio STILES, Brian Kate [phone] [ ] Conditions or Problems Problem Name Problem Code Onset Date Status Entry Date Provider Comment Standard Description Annotate Eschar 981186859 (SNOMED CT) Active Brian Buckley MD Skin eschar Hematoma of arm 245625713 (SNOMED CT) Active Brian Buckley MD Hematoma Other obesity due to excess calories 632453898 (SNOMED CT) Active Yasmin Minor Simple obesity Gram negative infection 482681213 (SNOMED CT) Active Brian Buckley MD 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-negative bacteria Wound infection 22908563 (SNOMED CT) Active Brian Buckley MD Local infection of wound Knee, right, initial encounter(s) , 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 T84.53xA (ICD-10-CM) Active Clare Hemal Infection and 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 prosthesis, initial encounter Effusion, right knee M25.461 (ICD-10-CM) Active Clare Hemal Effusion, right knee Cellulitis of RLE 544990564 (SNOMED CT) Active Clare Hemal Cellulitis of lower limb Medications Medication Instructions Start Date Stop Date Generic Name NDC Provider BACTRIM DS 800-160 MG TABS Take 1 tablet by mouth twice a day 5 sulfamethoxazo le-trimethopri m 37462474565 Brian Buckley MD CLINDAMYCIN HCL 150 MG CAPS by mouth clindamycin hcl 95069745927 Lois Suarez DIFLUCAN 150 MG TABS by mouth fluconazole 62322382973 Lois Suarez ALLOPURINOL 100 MG TABS by mouth once a day allopurinol 77886199711 Yasmin Minor CEFADROXIL 500 MG CAPS by mouth three times a day cefadroxil 57862178211 Yasmin Minor CLINDAMYCIN HCL 150 MG CAPS by mouth clindamycin hcl 80964159552 Yasmin Minor DICYCLOMINE HCL 20 MG TABS by mouth dicyclomine 59786972038 Yasmin Minor DIFLUCAN 150 MG TABS by mouth fluconazole 82679421694 Yasmin Minor DOXYCYCLINE HYCLATE 100 MG CAPS by mouth twice a day doxycycline hyclate 96200002019 Yasmin Minor FUROSEMIDE 40 MG TABS by mouth once a day furosemide 51251624153 Yasmin Minor LORATADINE 10 MG TABS by mouth once a day loratadine 70088641377 Yasmin Minor LOSARTAN POTASSIUM 25 MG TABS by mouth once a day losartan 52615738264 Yasmin Minor MELOXICAM 15 MG TABS by mouth once a day meloxicam 48380995222 Yasmin Minor METOPROLOL SUCCINATE ER 100 MG CW84Q-BAC by mouth twice a day metoprolol succinate 08294653395 Yasmin Minor MONTELUKAST SODIUM 10 MG TABS by mouth montelukast 38560165482 Yasmin Minor OSTEO BI-FLEX ONE PER DAY TABS by mouth once a day glucosamine-d3 -boswellia serr 83593783839 Yasmin Minor Medications Administered No information available. [...] Procedures Code Procedure Name Date Entry Date CPT-80612 CMP CPT-37402 Sedimentation Rate (ESR) 202 02/02/09 CPT-79392 C- reactive protein Z2423g,[id number] CBC with Differential 2022 CPT-68572 CMP CPT-64981 C- reactive protein H6506i,[id number] CBC with Differential 2022 CPT-49107 Sedimentation Rate (ESR) 202 02/01/25 Vital Signs [...]
--- OUTSIDE RECORDS SUMMARY | 2025-08-02 09:16 | XMS_ITS | Encounter Summary ---
Author Organization [employer] ([place], [place], [place], [place]) Address [address] [place] [address] Care Team Providers Care Apparel Cutter Name Role Phone Unavailable Primary Care Provider Unavailabl e Encounter Details Date Type Department Care Team (Late st Contact Info) Description 03/22/2021 Transcribed Document [facility] Family Medicine [facility] [place] [address] ProviderLibrado MD [address] [place] [address] Social History Tobacco Use Types [...] EugeneD Electronically signed by Kristina Dobbs Conversion Sales Representative Raw Fibers Cerner at 03/21/2023 1:10 PM CDT documented in this encounter Plan of Treatment Not on file documented as of this encounter Visit Diagnoses Not on filedocumented in this encounter
--- OUTSIDE RECORDS SUMMARY | 2025-08-02 09:16 | XMS_ITS | Encounter Summary ---
Author Organization [employer] ([place], [place], [place], [place]) Address [address] [place] [address] Care Team Providers Care Veneer Sawyer Name Role Phone Unavailable Primary Care Provider Unavailabl e Encounter Details Date Type Department Care Team (Late st Contact Info) Description 01/25/2021 Transcribed Document [facility] [place] [facility] [place] [address] ProviderLibrado MD [address] [place] [address] Social History Tobacco Use Types Packs/Day Years Used Date Smoking Tobacco: Never Assessed Comments Unknown Sex and Gender Information Value Date Recorded Sex Assigned at Not on file Legal Sex Female 1:10 PM CDT Gender Identity Not on file Sexual Orientation Not on file documented as of this encounter Miscellaneous Notes * Cerner Conversion Note - Librado ProviderMD - 01/25/2021 11:29 AM MELTER ASSISTANT PAT Adult Entered On: 01/25/2021 11:35 EST [...] Source : Measured Height Entry Format : [place] Height, Feet : 5 ft(Converted to: 152 cm, 60 Inch) Height, Inches : 7 Inch(Converted to: 0 ft 7 Inch, 17.78 cm) Clinical Height : 170.18 cm Weight Source : Standing scale Weight Entry Format : [place] Clinical [facility] Weight : 99.09 kg Weight, Pounds : 218 lb Body Surface Area (BSA) : 2.1 m2 Body Mass Index : 34.2 kg/m2 (HI) [place] Body Weight : 61 kg Deisy Collins [...] Deisy Collins RN - 01/25/2021 11:29 EST [place] Suicide Severity Rating Scale (C-SSRS) CSSRS Past [...] : Sandip Tavares Emergency Contact #1 or [phone] Emergency Contact #1 Relationship : Spouse Emergency Contact #2 : . Emergency Contact #2 Phone Number : . Emergency Contact #2 Relationship : . Primary Language : Tajik Preferred Communication Mode : Verbal Communication Barrier : None Mail Distributor Needed : No Deisy Collins RN - [...]
--- OUTSIDE RECORDS SUMMARY | 2025-08-02 09:17 | XMS_ITS | Encounter Summary ---
Author Organization [employer] ([place], [place], [place], [place]) Address [address] [place] [address] Care Team Providers Care Supervisor Hospitality House Name Role Phone Unavailable Primary Care Provider Unavailabl e Encounter Details Date Type Department Care Team (Late st Contact Info) Description 03/22/2021 Transcribed Document [facility] [place] [facility] [place] [address] ProviderLibrado MD [address] [place] [address] Social History Tobacco Use Types Packs/Day [...] : Sandip Tavares Emergency Contact #1 or [phone] Emergency Contact #1 Relationship : Spouse Emergency [...] Referral sent via Norberto. patient also choose [facility] for her outpatient PT. DME: [...]
--- OUTSIDE RECORDS SUMMARY | 2025-08-02 09:17 | XMS_ITS | Encounter Summary ---
Author Organization [employer] ([place]) Address [address] [place] [address] Care Team Providers Care Assistant Corporate Secretary Name Role Phone Unavailable Primary Care Provider Unavailabl e Encounter Details Date Type Department Care Team (Late st Contact Info) Description 03/22/2021 Transcribed Document [facility] [place] [facility] [place] [address] ProviderLibrado MD [address] [place] [address] Social History Tobacco Use Types Packs/Day [...] Address: Phone Number: [facility] [address], [place], [address] Discharge Options Discussed with Patient [...] Referral sent via Norberto. patient also choose [facility] for her outpatient PT. DME: [...]
--- OUTSIDE RECORDS SUMMARY | 2025-08-02 09:17 | XMS_ITS | Encounter Summary ---
Author Organization [employer] ([place]) Address [address] [place] [address] Care Team Providers Care Pet Feeder Name Role Phone Unavailable Primary Care Provider Unavailabl e Encounter Details Date Type Department Care Team (Late st Contact Info) Description 03/21/2021 Transcribed Document [facility] [place] [facility] [place] [address] ProviderLibrado MD [address] [place] [address] Social History Tobacco Use Types Packs/Day [...] Source : Measured Height Entry Format : [place] Height, Feet : 5 ft(Converted to: 152 cm, 60 Inch) Height, Inches : 7 Inch(Converted to: 0 ft 7 Inch, 17.78 cm) Clinical Height : 170.18 cm Weight Source : Standing scale Weight Entry Format : [place] Clinical Dosing Weight : 93.18 kg Weight, Pounds : 205 lb Body Surface Area (BSA) : 2.05 m2 Body Mass Index : 32.2 kg/m2 (HI) [place] Body Weight : 61 kg BILLY ALFARO [...] BILLY ALFARO RN - 03/21/2021 6:36 EDT [place] Suicide Severity Rating Scale (C-SSRS) CSSRS Past [...] : Sandip Tavares Emergency Contact #1 or [phone] Emergency Contact #1 Relationship : Spouse Emergency Contact #2 : . Emergency Contact #2 Phone Number : . Emergency Contact #2 Relationship : . Information Obtained From : Patient Primary Language : Occitan Preferred Communication Mode : Verbal Communication Barrier : None Planner/Scheduler Needed : No Currently Lactating : No [...]
--- OUTSIDE RECORDS SUMMARY | 2025-08-02 09:17 | XMS_ITS | Encounter Summary ---
Author Organization [employer] ([place]) Address [address] [place] [address] Care Team Providers Care Mechanical Engineering Officer Name Role Phone Unavailable Primary Care Provider Unavailabl e Encounter Details Date Type Department Care Team (Late st Contact Info) Description 03/22/2021 Transcribed Document [facility] [place] [facility] [place] [address] ProviderLibrado MD [address] [place] [address] Social History Tobacco Use Types Packs/Day [...] Address: Phone Number: [facility] [address], [address] Patient Offered Choice/Affiliations Explained : [...]
--- OUTSIDE RECORDS SUMMARY | 2025-08-02 09:17 | XMS_ITS | Encounter Summary ---
Author Organization [employer] ([place], [place]) Address [address] [place] [address] Care Team Providers Care Human Factors Ergonomist Name Role Phone Unavailable Primary Care Provider Unavailabl e Encounter Details Date Type Department Care Team (Late st Contact Info) Description 03/22/2021 Transcribed Document [facility] [place] [address] [place] [address] ProviderLibrado MD [address] [place] [address] Social History Tobacco Use Types [...] : N/A Warfarin Discharge Ins : N/A aDnna Avila RN - 03/22/2021 11:38 EDT Electronically signed by Dilia [facility] Conversion Safety Grooving Machine Operator Cerner at 03/21/2023 1:05 PM CDT documented in this encounter Plan of Treatment Not on file documented as of this encounter Visit Diagnoses Not on filedocumented in this encounter
--- OUTSIDE RECORDS SUMMARY | 2025-08-02 09:17 | XMS_ITS | Encounter Summary ---
Author Organization [employer] ([place], [place], [place], [place]) Address [address] [place] [address] Care Team Providers Care Universal Grinder Set Up Operator Name Role Phone Unavailable Primary Care Provider Unavailabl e Encounter Details Date Type Department Care Team (Late st Contact Info) Description 03/21/2021 Transcribed Document [facility] [place] [facility] [place] [address] ProviderLibrado MD [address] [place] [address] Social History Tobacco Use Types Packs/Day [...] BARBARA NOYOLA, PT - 03/21/2021 12:00 EDT Senior Living Goals Other PT LTG [...]
--- OUTSIDE RECORDS SUMMARY | 2025-08-02 09:17 | XMS_ITS | Encounter Summary ---
Author Organization [employer] ([place], [place], [place], [place]) Address [address] [place] [address] Care Team Providers Care Hoister Name Role Phone Unavailable Primary Care Provider Unavailabl e Encounter Details Date Type Department Care Team (Late st Contact Info) Description 03/21/[address] [facility] [place] [facility] [place] [address] ProviderLibrado MD [address] [place] [address] Social History Tobacco Use Types Packs/Day [...] JOIE TAVARES/Sex: 1960 Female Med Rec #: [id number] Physician: DARY GAMEZ JR, JR, MD-ORT Financial #: [id number] Pt. Type: O Room/Bed: EAS/1 Admit/Disch: 03/21/21 04:39:00 - Institution: [facility] [place] IntraOp Case Attendance Entry 1 Entry 2 Entry 3 Case Attendee DARY GAMEZ JR, JR, WHITAKER, CARLY, Davis, Stephen J, RNFA MD-ORT LIGHT INDUSTRIAL SUPERVISOR-ANS Role Performed Surgeon/Proceduralist, LIGHT INDUSTRIAL SUPERVISOR/Nurse Painting Trades Worker NAILA First Time In 03/21/21 07:28:00 03/21/21 [...] Performed Scrub, First Scrub, Second Cell Saver Tower Technician Time In 03/21/21 07:28:00 03/21/21 07:28:00 03/21/21 [...] ATTENDEE #2 Sarah Biggs LONGSWORTH, GARY, MAGALYS Flight Service Agent Role Performed Vendor Animal Handler Brick Layer, First Time In 03/21/21 07:28:00 03/21/21 07:35:00 [...] Case Attendee FAITH ESCOBEDO RN Role Performed Brick Layer, Second Time In 03/21/21 09:04:00 Time Out 03/21/21 09:15:00 Procedure Hip Total Anterior Approach(Right) Other Attendee Superficial Wound Closed By: Last Modified By: KAMERON CORREA RN 03/21/21 09:14:09 [facility] IntraOp Case Attendance Audit 03/21/21 09:14:09 Burring Wheel Operator: LONGGA Modifier: LONGGA 1 <+> Time Out [...] Procedure Hip Total Anterior Approach(Right) 03/21/21 09:09:17 Burring Wheel Operator: LONGGA Modifier: LONGGA 9 <+> Time Out 9 <*> Procedure Hip Total Anterior Approach(Right) <+> 10 Case Attendee <+> 10 Role Performed <+> 10 Time In <+> 10 Procedure 03/21/21 07:55:56 Burring Wheel Operator: LONGGA Modifier: LONGGA <+> 9 Case Attendee <+> 9 Role Performed <+> 9 Time In <+> 9 Procedure 03/21/21 07:53:41 Burring Wheel Operator: LONGGA Modifier: LONGGA 6 <*> Time In 03/21/21 07:28:00 6 <*> Procedure Hip Total Anterior Approach(Right) 03/21/21 07:53:18 Burring Wheel Operator: LONGGA Modifier: LONGGA <+> 1 Procedure 2 <*> Procedure Hip Total Anterior Approach(Right) 3 <*> Procedure Hip Total Anterior Approach(Right) 4 <*> Procedure Hip Total Anterior Approach(Right) 5 <*> Procedure Hip Total Anterior Approach(Right) 6 <+> Time In 6 <*> Procedure Hip Total Anterior Approach(Right) 7 <*> Procedure Hip Total Anterior Approach(Right) 8 <*> Procedure Hip Total Anterior Approach(Right) 03/21/21 07:43:00 Burring Wheel Operator: LONGGA Modifier: LONGGA <+> 1 Time In [...] SJE IntraOp Case Times Audit 03/21/21 09:14:07 Burring Wheel Operator: LONGGA Modifier: LONGGA <+> 1 Out Room Time <+> 1 Stop Time 03/21/21 09:13:29 Burring Wheel Operator: LONGGA Modifier: LONGGA <+> 1 Stop Time 03/21/21 07:53:13 Burring Wheel Operator: LONGGA Modifier: LONGGA <+> 1 Start Time [...] IntraOp Dressing and Packing Audit 03/21/21 08:58:36 Burring Wheel Operator: MARY Modifier: GIRISHGA 1 <-> Wound Dressing [...] IntraOp Fire Risk Assessment Audit 03/21/21 08:09:15 Burring Wheel Operator: MARY Modifier: LONGGA <+> 1 Fire Risk Assessment Verified By <+> 1 Fire Risk Assessment Verified Date/Time <+> 1 High Risk Protocol Implemented SJ IntraOp General Case Processing Inspector 1 Case Information OR OR 05 [facility] [place] Case Level 1 [...] D HIP STEM ACCOLADE II Identification 48MM [id number] Description Implant Quantity 1 1 1 Implant Site RIGHT HIP RIGHT HIP RIGHT HIP Implant Identification Model Number Implant Identification Serial Number Implant [id number] Identification Lot Number Implant Nikita Ortho Cap Nikita:[place] Nikita:[place] Identification Orthopaedics Orthopaedics Executive Casino Host Name: Implant [id number] Identification Catalog Number Implant Size Implant Has an Yes Yes Yes Expiration Date Implant Expiration 10/18/25 11/02/25 12/23/25 Date Wasted Radioactive Material Time Implanted Tissue Implant Continue for Tissue Implant Documentation Tissue Identification Number Graft Prep Per Executive Casino Host Instructions: Tissue Preparation Method: Reconstitution Solution: Reconstitution Solution Lot Number Reconstitution Solution Expiration Date: Thawing Solution Thawing Solution Lot Number Thawing Solution Expiration Date Preparation Materials, Other Preparation Materials, Other Lot Number Preparation Materials, Other Expiration Date Tissue Prepared/Processed By Executive Casino Host Paperwork Completed Implant Type Comment Last Modified By: KAMERON CORREA RN LONGSWORTH, GARY, RN LONGSWORTH, GARY, RN 03/21/21 08:19:39 03/21/21 08:20:33 03/21/21 08:43:38 Entry 4 Type Implant (Synthetic) Implant Log Implant Type Hardware Tissue Implant Type Implant HEAD FEM BIOLOX V40 Identification [id number] Description Implant Quantity 1 Implant Site RIGHT HIP Implant Identification Model Number Implant Identification Serial Number Implant [id number] Identification Lot Number Implant Nikita:Nikita Identification Orthopaedics Executive Casino Host Name: Implant [id number] Identification Catalog Number Implant Size Implant Has an Yes Expiration Date Implant Expiration 09/27/25 Date Wasted Radioactive Material Time Implanted Tissue Implant Continue for Tissue Implant Documentation Tissue Identification Number Graft Prep Per Executive Casino Host Instructions: Tissue Preparation Method: Reconstitution Solution: Reconstitution Solution Lot Number Reconstitution Solution Expiration Date: Thawing Solution Thawing Solution Lot Number Thawing Solution Expiration Date Preparation Materials, Other Preparation Materials, Other Lot Number Preparation Materials, Other Expiration Date Tissue Prepared/Processed By Executive Casino Host Paperwork Completed Implant Type Comment Last Modified By: KAMERON CORREA RN 03/21/21 08:47:34 SJE IntraOp Implant Log Audit 03/21/21 08:47:34 Burring Wheel Operator: MARY Modifier: MARY <+> 4 Implant Identification Description <+> 4 Implant Identification Lot Number <+> 4 Implant Identification Executive Casino Host Name: <+> 4 Implant Expiration Date <+> 4 Implant Site <+> 4 Implant Quantity <+> 4 Implant Identification Catalog Number <+> 4 Implant Type <+> 4 Implant Has an Expiration Date <+> 4 Type 03/21/21 08:43:38 Burring Wheel Operator: MARY Modifier: LONGGA <+> 3 Implant Identification Description <+> 3 Implant Identification Lot Number <+> 3 Implant Identification Executive Casino Host Name: <+> 3 Implant Expiration Date <+> 3 Implant Site <+> 3 Implant Quantity <+> 3 Implant Identification Catalog Number <+> 3 Implant Type <+> 3 Implant Has an Expiration Date <+> 3 Type 03/21/21 08:20:33 Burring Wheel Operator: LONGGA Modifier: LONGGA <+> 2 Implant Identification Description <+> 2 Implant Identification Lot Number <+> 2 Implant Identification Executive Casino Host Name: <+> 2 Implant Expiration Date <+> [...] 1000units/ml SEALR AQUAMANTYS BIPLR CLONIDINE-10ML 10ml - [id number] Combo Med List 1 - Combo Med Time Administered Route of CELLSAVER PRIMARY TEACHING ASSISTANT INJECTION, RIGHT HIP Administration Dose Dose 34973 0.8 Unit of Measure units ml Volume [...] 0.5% 30ml vial Xylocaine 1% w/ - [id number] epinephrine 1:200,000 30ml vial - [id number] Combo Med List 1 - Combo Med [...] Yes Checked Positioning Devices Arm Board, Table, [place], Safety Strap, Chest Device Position HANA TABLE; PERINEAL POST Positioned By SIS SHAH CRNA-ANS, DARY GAMEZ JR, JR, MD-ORT, KAMERON CORREA, MAGALYS, Mati Fuentes, FACILITIES MAINTENANCE TECHNICIAN Position Verified Positioning Yes Verified by Anesthesia [...] SJE IntraOp Skin Prep Audit 03/21/21 10:21:05 Burring Wheel Operator: MARY Modifier: LONGGA 1 <*> Prep Agents [...] SJE IntraOp Surgical Procedures Audit 03/21/21 09:13:33 Burring Wheel Operator: LONGGA Modifier: LONGGA <+> 1 Stop SJE IntraOp Temp Regulation Devices Entry 1 Temp Regulation Temperature Conductive warming Regulation Device device placed over patient Temperature 4764 Regulation Device Serial/Unit Number Temperature Upper body Regulation Site Temperature Device 43 Setting Temperature SIS SHAH, Regulation Device LIGHT INDUSTRIAL SUPERVISOR-ANS Applied by Last Modified By: KAMERON CORREA [...] Fluoroscopy Fluoroscopy Type C-Arm Site RIGHT HIP Millwright Instructor Name Sarah Biggs, Flight Service Agent Protective Devices Yes Used Last Modified By: [...]
--- OUTSIDE RECORDS SUMMARY | 2025-08-02 09:17 | XMS_ITS | Encounter Summary ---
Author Organization [employer] ([place], [place], [place], [place]) Address [address] [place] [address] Care Team Providers Care Production Scheduler Name Role Phone Unavailable Primary Care Provider Unavailabl e Encounter Details Date Type Department Care Team (Late st Contact Info) Description 03/21/2021 Transcribed Document [facility] [place] [facility] [place] [address] ProviderLibrado MD [address] [place] [address] Social History Tobacco Use Types Packs/Day [...] COMPONENTS USED: Size 48 press-fit acetabular component [place] with a neutral poly liner to accept [...] the recovery room. Final condition was improved. /[id number] MD SIMIN Infante Jr/SHOBHA / SIMIN / MODL /[id number] documented in this encounter Plan of Treatment Not on file documented as of this encounter Visit Diagnoses Not on filedocumented in this encounter
--- OUTSIDE RECORDS SUMMARY | 2025-08-02 09:17 | XMS_ITS | Encounter Summary ---
Author Organization [email or web address] ([place], [place], [place], [place]) Address [address] [place] [address] Care Team Providers Care Proposal Coordinator Name Role Phone Unavailable Primary Care Provider Unavailabl e Encounter Details Date Type Department Care Team (Late st Contact Info) Description 03/21/2021 Transcribed Document [facility] [place] [facility] [place] [address] ProviderLibrado MD [address] [place] [address] Social History Tobacco Use Types Packs/Day [...] On: 03/22/2021 9:27 EDT by PABLO ABDALLA, COMMERCIAL SALES CONSULTANT General Information, PT Visit Type, PT : [...] PABLO ABDALLA PTA - 03/22/2021 10:05 EDT [facility] Goals Other PT LTG Grid Goal #1 [...] EDT 03/22/2021 EDT 03/22/2021 EDT PABLO ABDALLA, COMMERCIAL SALES CONSULTANT - 03/22/2021 10:05 EDT RM PABLO Frederick, COMMERCIAL SALES CONSULTANT - 03/22/2021 10:05 EDT RM PABLO Frederick, COMMERCIAL SALES CONSULTANT - 03/22/2021 10:05 EDT Treatment Note Subjective [...] for Treatment : Anticipated d/c home from [facility] today. PABLO ABDALLA, BERNARDO - 03/22/2021 10:05 EDT Pain Assessment Pain Scaled Used : 0-10 Pain scale Pain Score Pre-Intervention : 0 PABLO ABDALLA, BERNARDO - 03/22/2021 10:05 EDT Image 1 - Images currently included in the form version of this document have not been included in the text rendition version of the form. [place] PT Charges COMMERCIAL SALES CONSULTANT PT Therap. Exercise 15 min-COMMERCIAL SALES CONSULTANT : 1 Gait Training Each 15 Min-COMMERCIAL SALES CONSULTANT : 1 PABLO ABDALLA, COMMERCIAL SALES CONSULTANT - 03/22/2021 10:05 EDT documented in this encounter Plan of Treatment Not on file documented as of this encounter Visit Diagnoses Not on filedocumented in this encounter
--- OUTSIDE RECORDS SUMMARY | 2025-08-02 09:17 | XMS_ITS | Encounter Summary ---
Author Organization [employer] ([place], [place], [place], [place]) Address [address] [place] [address] Care Team Providers Care Digital Computer Operator Name Role Phone Unavailable Primary Care Provider Unavailabl e Encounter Details Date Type Department Care Team (Late st Contact Info) Description 03/22/[address] [facility] [place] Family [place] [address] [place] [address] ProviderLibrado MD [address] [place], [place] [id number] Social History Tobacco Use Types Packs/Day Years [...]
--- OUTSIDE RECORDS SUMMARY | 2025-08-02 09:17 | XMS_ITS | Encounter Summary ---
Author Organization [employer] ([place], [place], [place], [place]) Address [address] [place] [address] Care Team Providers Care Christmas Tree Grower Name Role Phone Unavailable Primary Care Provider Unavailabl e Encounter Details Date Type Department Care Team (Late st Contact Info) Description 03/08/2021 Transcribed Document [facility] [place] [facility] [place] [address] ProviderLibrado MD [address] [place] [address] Social History Tobacco Use Types Packs/Day [...] Appearance CLEAR2 03/08/2021 09:44 EDT Urine Specific Barry 1.012 03/08/2021 09:44 EDT Urine pH Dipstick [...]
--- OUTSIDE RECORDS SUMMARY | 2025-08-02 09:17 | XMS_ITS | Clinical Summary ---
Author Organization [employer] ([place], [place], [place], [place]) Address [address] [place] [address] Care Team Providers Care Drying Machine Tender Name Role Phone Unavailable Primary Care Provider [...]
--- OUTSIDE RECORDS SUMMARY | 2025-08-02 09:17 | XMS_ITS | Encounter Summary ---
Author Organization [employer] ([place], [place]) Address [address] [place] [address] Care Team Providers Care Septic Technician Name Role Phone Unavailable Primary Care Provider Unavailabl e Encounter Details Date Type Department Care Team (Late st Contact Info) Description 03/22/2021 Transcribed Document [facility] [place] [facility] [place] [address] ProviderLibrado MD [address] [place] [address] Social History Tobacco Use Types [...]
--- OUTSIDE RECORDS SUMMARY | 2025-08-02 09:17 | XMS_ITS | Encounter Summary ---
Author Organization [employer] ([place], [place], [place]) Address [address] [place] [address] Care Team Providers Care Access Services Representative Name Role Phone Unavailable Primary Care Provider Unavailabl e Encounter Details Date Type Department Care Team (Late st Contact Info) Description 03/22/2021 Transcribed Document [facility] [place] [facility] [place] [address] ProviderLibrado MD [place] [address] Social History Tobacco Use Types [...] RWx SBA, safely ascended/descended 4 steps using PATTERN GRADER SUPERVISOR/CGA, safely ascended/descended 1 platform step with RWx CGA, and participated with LE exercises. Patient would continue to benefit from further skilled PT services to improve LE strength, gait mechanics, and functional mobility to maximize recovery from right anterior SALUD. I agree with above D/C summary. Bonnie Manuel, PT LYLE AYLIN B., PT - 03/22/2021 16:12 EDT [facility] Goals Other PT LTG Grid Goal #1 [...] EDT 03/22/2021 EDT 03/22/2021 EDT PABLO ABDALLA, WEB ARCHITECT - 03/22/2021 15:58 EDT PABLO ABDALLA, WEB ARCHITECT - 03/22/2021 15:58 EDT PABLO ABDALLA, WEB ARCHITECT - 03/22/2021 15:58 EDT documented in this encounter Plan of Treatment Not on file documented as of this encounter Visit Diagnoses Not on filedocumented in this encounter
--- OUTSIDE RECORDS SUMMARY | 2025-08-02 09:17 | XMS_ITS | Encounter Summary ---
Author Organization [employer] ([place], [place], [place], [place]) Address [address] [place] [address] Care Team Providers Care Refinery Process Engineer Name Role Phone Unavailable Primary Care Provider Unavailabl e Encounter Details Date Type Department Care Team (Late st Contact Info) Description 03/08/2021 Transcribed Document [facility] [place] [facility] [place] [address] ProviderLibrado MD [address] [place] [address] Social History Tobacco Use Types Packs/Day [...] Source : Measured Height Entry Format : [place] Height, Feet : 5 ft(Converted to: 152 cm, 60 Inch) Height, Inches : 7 Inch(Converted to: 0 ft 7 Inch, 17.78 cm) Clinical Height : 170.18 cm Weight Source : Standing scale Weight Entry Format : [place] Clinical Dosing Weight : 95 kg Weight, Pounds : 209 lb Body Surface Area (BSA) : 2.06 m2 Body Mass Index : 32.8 kg/m2 (HI) [place] Body Weight : 61 kg Deisy Collins [...] Deisy Collins RN - 03/08/2021 9:34 EDT [place] Suicide Severity Rating Scale (C-SSRS) CSSRS Past [...] : Sandip Tavares Emergency Contact #1 or [phone] Emergency Contact #1 Relationship : Spouse Emergency Contact #2 : . Emergency Contact #2 Phone Number : . Emergency Contact #2 Relationship : . Primary Language : Turkmen Preferred Communication Mode : Verbal Communication Barrier : None Stoker Erector And Servicer Needed : No Deisy Collins RN - [...]
--- OUTSIDE RECORDS SUMMARY | 2025-08-02 09:17 | XMS_ITS | Encounter Summary ---
Author Organization [employer] ([place], [place], [place]) Address [address] [place] [address] Care Team Providers Care Systems Applications Programming Lead Name Role Phone Unavailable Primary Care Provider Unavailabl e Encounter Details Date Type Department Care Team (Late st Contact Info) Description 03/22/2021 Transcribed Document [facility] [place] [address] ProviderLibrado MD [address] [place] [address] Social History Tobacco Use Types Packs/Day [...] 13:07 EDT Transporter Signature : Columba Gold [facility] Coord Patient Disposition, General : [...]
--- OUTSIDE RECORDS SUMMARY | 2025-08-02 09:17 | XMS_ITS | Encounter Summary ---
Author Organization [employer] ([place]) Address [address] [place] [address] Care Team Providers Care Claim Examiner Name Role Phone Unavailable Primary Care Provider Unavailabl e Encounter Details Date Type Department Care Team (Late st Contact Info) Description 03/22/2021 Transcribed Document [facility] [place] [facility] [place] [address] ProviderLibrado MD [address] [place] [address] Social History Tobacco Use Types [...]
--- OUTSIDE RECORDS SUMMARY | 2025-08-02 09:17 | XMS_ITS | Encounter Summary ---
Author Organization [employer] ([place], [place], [place], [place]) Address [address] [place] [address] Care Team Providers Care Bioanalyst Name Role Phone Unavailable Primary Care Provider Unavailabl e Encounter Details Date Type Department Care Team (Late st Contact Info) Description 03/21/2021 Transcribed Document [facility] [place] [address] [place] [address] ProviderLibrado MD [address] [place], [place] [address] Social History Tobacco Use Types Packs/Day Years [...]
--- OUTSIDE RECORDS SUMMARY | 2025-08-02 09:17 | XMS_ITS | Encounter Summary ---
Author Organization [employer] ([place], [place], [place], [place]) Address [address] [place] [address] Care Team Providers Care Directional Driller Name Role Phone Unavailable Primary Care Provider Unavailabl e Encounter Details Date Type Department Care Team (Late st Contact Info) Description 03/21/2021 Transcribed Document [facility] [place] [facility] [place] [address] ProviderLibrado MD [address] [place] [address] Social History Tobacco Use Types [...] Oral, Q4H phenol 1.4% throat spray 5 [place], Oral, Q2H promethazine 25 mg tab 12.5 [...] HTN, heart disease Procedure history: tubal. Appendectomy; (92266). trigger finger. arthroscopy both knees. left total knee with Titanium. right CTR. cysto lithotripsy. several hammertoe/bunion surgeries. right wrist joint fusion. facet injects and rhizotomy. heart cath and lexiscan stress test 2010. retina; vein injections monthly. RTKA with Titanium. Colonoscopy ([id number]). Cystoscopy ([id number]). Bilateral Cataract Removal with IOL Implants. Lithotripsy ([id number]). Social History Patient is and has no children, she quit [employer] on 01/10/1993.Denies drinking alcohol. Physical Examination VS/Measurements [...] swelling, No deformity, Normal gait. Integumentary: Warm, [place], Intact, No pallor, No rash, WOUND STABLE. [...] then you may give Tylenol 650 mg PO/WA x 1. If no response in 2 [...]
--- OUTSIDE RECORDS SUMMARY | 2025-08-02 09:17 | XMS_ITS | Encounter Summary ---
Author Organization [employer] ([place], [place], [place]) Address [address] [place] [address] Care Team Providers Care Tray Line Supervisor Name Role Phone Unavailable Primary Care Provider Unavailabl e Encounter Details Date Type Department Care Team (Late st Contact Info) Description 03/21/2021 Transcribed Document [facility] [place] [address] ProviderLibrado MD [address] [place] [address] Social History Tobacco Use Types Packs/Day [...] Low Spiritual Framework : Integrated, provides strength/resource Religion Preference : Sabianist DAYNA OCONNOR Chaplain-Non Cert - 03/21/2021 7:29 EDT documented in this encounter Plan of Treatment Not on file documented as of this encounter Visit Diagnoses Not on filedocumented in this encounter
--- OUTSIDE RECORDS SUMMARY | 2025-08-02 09:17 | XMS_ITS | Encounter Summary ---
Author Organization [employer] ([place], [place]) Address [address] [place] [address] Care Team Providers Care Lineworker Name Role Phone Unavailable Primary Care Provider Unavailabl e Encounter Details Date Type Department Care Team (Late st Contact Info) Description 03/21/2021 Transcribed Document [facility] [place] Medicine [facility] [place] [address] ProviderLibrado MD [address] [place] [address] Social History Tobacco Use Types Packs/Day [...] JOIE TAVARES/Sex: 1960 Female Med Rec #: [id number] Physician: DARY GAMEZ JR, JR, MD-ORT Financial #: [id number] Pt. Type: O Room/Bed: EAS/1 Admit/Disch: 03/21/21 04:39:00 - [place] [facility] [place] Entry 1 In Preop 03/21/21 05:20:00 Ready for Holding n/a Room Patient Ready for 03/21/21 06:35:00 Surgery Patient Out of Preop 03/21/21 07:26:00 Patient Out of n/a Holding Room Last Modified By: OMI SELBY 03/21/21 09:40:02 SJE PreOp Case Times Audit 03/21/21 09:40:02 Kettle Cook: EDWARD Modifier: CATLETDD <+> 1 Patient Out of Preop Finalized By: OMI SELBY Document Signatures Signed By: OMI SELBY 03/21/21 09:40 Electronically signed by Dilia [facility] Conversion Chainstitch Felled Seam Operator Cerner at 03/21/2023 12:55 PM CDT documented in this encounter Plan of Treatment Not on file documented as of this encounter Visit Diagnoses Not on filedocumented in this encounter
--- OUTSIDE RECORDS SUMMARY | 2025-08-02 09:17 | XMS_ITS | Encounter Summary ---
Author Organization [employer] ([place], [place], [place], [place]) Address [address] [place] [address] Care Team Providers Care Restorative Coordinator Name Role Phone Unavailable Primary Care Provider Unavailabl e Encounter Details Date Type Department Care Team (Late st Contact Info) Description 03/21/2021 Transcribed Document [facility] [place] [facility] [place] [address] ProviderLibrado MD [address] [place] [address] Social History Tobacco Use Types Packs/Day [...] ARI LOU OTR/Heaven - 03/21/2021 11:45 EDT Trucker Goals, OT Other LTG Grid Goal #1 [...]
--- OUTSIDE RECORDS SUMMARY | 2025-08-02 09:17 | XMS_ITS | Encounter Summary ---
Author Organization [employer] ([place], [place], [place], [place]) Address [address] [place] [address] Care Team Providers Care Sheet Rock Applier Name Role Phone Unavailable Primary Care Provider Unavailabl e Encounter Details Date Type Department Care Team (Late st Contact Info) Description 03/22/2021 Transcribed Document [facility] [place] [address] [place] [address] ProviderLibrado MD [address] [place] [address] Social History Tobacco Use Types [...] Historical ProviderMD - 03/22/2021 2:00 AM CDT Cabinetmaker Apprentice Details Entered On: 03/22/2021 1:18 EDT Performed [...]
--- OUTSIDE RECORDS SUMMARY | 2025-08-02 09:17 | XMS_ITS | Encounter Summary ---
Author Organization [employer] ([place], [place], [place], [place]) Address [address] [place] [address] Care Team Providers Care Claims Sorter Name Role Phone Unavailable Primary Care Provider Unavailabl e Encounter Details Date Type Department Care Team (Late st Contact Info) Description 03/22/2021 Transcribed Document [facility] [place] [facility] [place] [address] ProviderLibrado MD [address] [place] [address] Social History Tobacco Use Types [...] Policy Numbers : Insurance 1 Health Plan: [facility] Policy Number: [id number] Authorization Number: [id number] Insurance Primary Name : [facility] Policy Number: [id number] Authorization Status-Primary : Opo status approv Authorized Service Begin Date-Primary : 03/21/2021 EDT Observation Authorization Nbr-Primary : [id number] Authorization Comments-Primary : [facility] auth approved for outpt per Star note Historical Authorization Comments-Primary : No Authorization Comments Found CONRAD COWAN RN-Utilization Review - 03/22/2021 8:25 EDT documented in this encounter Plan of Treatment Not on file documented as of this encounter Visit Diagnoses Not on filedocumented in this encounter
--- OUTSIDE RECORDS SUMMARY | 2025-08-02 09:17 | XMS_ITS | Referral Summary ---
Author Organization [employer] ([place], [place], [place], [place]) Address [address] [place] [address] Care Team Providers Care Ordnance Engineer Name Role Phone Unavailable Primary Care [...]
--- OUTSIDE RECORDS SUMMARY | 2025-08-02 09:17 | XMS_ITS | Encounter Summary ---
Author Organization [employer] ([place], [place], [place], [place]) Address [address] [place] [address] Care Team Providers Care Clinical Biochemist Name Role Phone Unavailable Primary Care Provider Unavailabl e Encounter Details Date Type Department Care Team (Late st Contact Info) Description 01/25/2021 Transcribed Document [facility] [place] [facility] [place] [address] ProviderLibrado MD [address] [place] [address] Social History Tobacco Use Types Packs/Day Years Used Date Smoking Tobacco: Never Assessed Comments Unknown Sex and Gender Information Value Date Recorded Sex Assigned at Not on file Legal Sex Female 1:10 PM CDT Gender Identity Not on file Sexual Orientation Not on file documented as of this encounter Miscellaneous Notes * Cerner Conversion Note - Librado ProviderMD - 01/25/2021 11:00 AM PIT WORKER POWER SHOVEL Patient: JOIE TAVARES Age: 60 Years Sex: [...] Lymph # 2.13 K/uL 01/25/2021 11:44 EST [place] % 7.4 % 01/25/2021 11:44 EST [place] # 0.57 K/uL 01/25/2021 11:44 EST Eos [...] CLOUDY2 (Abnormal) 01/25/2021 11:44 EST Urine Specific [place] 1.024 01/25/2021 11:44 EST Urine pH Dipstick [...] Indicated 01/25/2021 11:44 EST Electronically signed by [facility], [facility] Conversion Railroad Inspector Cerner at 03/21/2023 1:13 PM CDT documented in this encounter Plan of Treatment Not on file documented as of this encounter Visit Diagnoses Not on filedocumented in this encounter
--- OUTSIDE RECORDS SUMMARY | 2025-08-02 09:17 | XMS_ITS | Encounter Summary ---
Author Organization [employer] ([place], [place], [place], [place]) Address [address] [place] [address] Care Team Providers Care Inside Sales Consultant Name Role Phone Unavailable Primary Care Provider Unavailabl e Encounter Details Date Type Department Care Team (Late st Contact Info) Description 03/21/2021 Transcribed Document [facility] [place] [facility] [place] [address] ProviderLibrado MD [address] [place] [address] Social History Tobacco Use Types Packs/Day Years Used Date Smoking Tobacco: Never Assessed Comments Unknown Sex and Gender Information Value Date Recorded Sex Assigned at Not on file Legal Sex Female 1:10 PM CDT Gender Identity Not on file Sexual Orientation Not on file documented as of this encounter Miscellaneous Notes * Cerner Conversion Note - Lirbado ProviderMD - 03/21/2021 7:52 AM CDT [facility] Summary Primary Physician: DARY GAMEZ JR, JR, MD-EVANS Finalized Date/Time: 03/21/21 10:11:04 Pt. Name: JOIE TAVARES/Sex: 1960 Female Med Rec #: [id number] Physician: DARY GAMEZ JR, JR, MD-ORT Financial #: [id number] Pt. Type: O Room/Bed: EAS/1 Admit/Disch: 03/21/21 04:39:00 - Institution: [facility] PAC[facility] Case Times Entry 1 In PACU I 03/21/21 09:16:00 Ready for PACU 03/21/21 10:10:00 Discharge Discharge from PACU 03/21/21 10:10:00 I Last Modified By: MAN GOODMAN 03/21/21 10:10:56 [facility] PACU Case Times Audit 03/21/21 10:10:56 Machine Washer: VALERIA Modifier: COLEMAM <+> 1 Ready for PACU Discharge <+> 1 Discharge from PACU I Finalized By: MAN GOODMAN Document Signatures Signed By: MAN GOODMAN 03/21/21 10:11 Electronically signed by Dilia [facility] Conversion Industrial Workers Cerner at 03/21/2023 1:17 PM CDT documented in this encounter Plan of Treatment Not on file documented as of this encounter Visit Diagnoses Not on filedocumented in this encounter
--- OUTSIDE RECORDS SUMMARY | 2025-08-02 09:17 | XMS_ITS | Encounter Summary ---
Author Organization [employer] ([place], [place], [place], [place]) Address [address] [place] [address] Care Team Providers Care Home Security Alarm Installer Name Role Phone Unavailable Primary Care Provider Unavailabl e Encounter Details Date Type Department Care Team (Late st Contact Info) Description 03/08/2021 Transcribed Document [facility] [place] [facility] [place] [address] ProviderLibrado MD [facility] [place] [address] Social History Tobacco Use [...]
--- OUTSIDE RECORDS SUMMARY | 2025-08-02 09:17 | XMS_ITS | Encounter Summary ---
Author Organization [employer] ([place], [place], [place], [place]) Address [address] [place] [address] Care Team Providers Care Wing Commander Name Role Phone Unavailable Primary Care Provider Unavailabl e Encounter Details Date Type Department Care Team (Late st Contact Info) Description 03/22/2021 Transcribed Document [facility] [place] [facility] [place] [address] ProviderLibrado MD [address] [place] [address] Social History Tobacco Use Types [...] Librado ProviderMD - 03/22/2021 12:19 PM CDT [place] [id number] JOIE HAQ :1960 Visit Time:03/21/2021 Your Visit Summary Your Care Team Admitting Physician - DARY GAMEZ JR, JR, MD-ORT Attending Physician - DARY GAMEZ JR, JR, MD-ORT Primary Care Physician - EBONY IZAGUIRRE (REF)DINORA Referring Physician - KALEB, NOT LISTED Your [...] Your Care Team Community Services: [facility] Home Health Services: [facility] Medical Equipment for Home Use: Patient has [...] When 04/03/2021 09:15 AM EDT Where: [address] [facility] [address] [place] [address]- Medications What How Much When Instructions Next [...] as needed for for constipation Pickup at [facility] as needed oxyCODONE (oxyCODONE 5 mg oral [...] for migraine headache as needed Pharmacy Information [facility]: [address] [place] [address] [phone] Take your medications faithfully. Do NOT skip [...] Barley. Bulgur wheat. Millet. Bran muffins. Popcorn. [place] wafer crackers. ??? Vegetables Sweet potatoes. Spinach. Kale. Artichokes. Cabbage. Broccoli. Green peas. Carrots. Squash. ??? Fruits Berries. Pears. Apples. Oranges. Avocados. Prunes and raisins. Dried figs. ??? Meats and Other Protein Sources [place], kidney, romero, and soy beans. Split peas. [...] humza has 11 g of protein. ??? [place] seeds ??? 1 oz has 5.5 g [...] floor. ??? Place frequently used items in qyta-ls-eibhv places ??? Keep electrical cables out of [...] ? Using the bathroom. ? Using household comfort advisor or toxic chemicals. ? Touching or taking [...] and need to call 911, notify the robotic machine operator that you have, or think [...] clean your hands with an alcohol-based hand cash processing specialist that contains at least 60% alcohol. Clean your hands often. ??? Wash hands: Wash your hands often with soap and water for at least 20 seconds when visibly dirty. This is especially important after blowing your nose, coughing or sneezing, and going to the bathroom, and before eating or preparing food. ??? Hand cash processing specialist: Use an alcohol-based hand cash processing specialist with at least 60% alcohol, covering all [...] and water or put them in the impregnator. Clean all high-touch surfaces every day. Clean [...] or body fluids on them. ??? Household comfort advisor and disinfectants: Clean the area or item [...] list of disinfectants can be found here: https://www.epa.gov/pesticide-registration/kfaq-z-rzacyoppyuaao-cyq-mywiaaa-uj rs-cov-2 ondansetron (oral) (on ELAINA se rc) [...] may report side effects to FDA at 3-744-KBN-3354. What other drugs will affect ondansetron? Ondansetron [...] interact with ondansetron. This includes prescription and svil-qjg-fhrekaw medicines, vitamins, and herbal products. Give a [...] to ensure that the information provided by [employer]. ('[employer]') is accurate, up-to-date, and complete, but no guarantee is made to that effect. Drug information contained herein may be time sensitive. [employer] information has been compiled for use by healthcare practitioners and consumers in the [place] and therefore [employer] does not warrant that uses outside of the [place] are appropriate, unless specifically indicated otherwise. [employer] drug information does not endorse drugs, diagnose patients or recommend therapy. [employer] drug information is an informational resource designed [...] effective or appropriate for any given patient. [employer] does not assume any responsibility for any aspect of healthcare administered with the aid of information [employer] provides. The information contained herein is not intended to cover all possible uses, directions, precautions, warnings, drug interactions, allergic reactions, or adverse effects. If you have questions about the drugs you are taking, check with your doctor, nurse or pharmacist. Copyright 1800-0422 [employer]. Version: 13.01. Revision Date: 09/20/2016. cephalexin (sef [...] may report side effects to FDA at 3-222-JJI-2884. What other drugs will affect cephalexin? Tell your doctor about all your other medicines, especially: ?? metformin; or ?? probenecid. This list is not complete. Other drugs may affect cephalexin, including prescription and aopn-lwb-algqviz medicines, vitamins, and herbal products. Not all [...] to ensure that the information provided by [employer]. ('[employer]') is accurate, up-to-date, and complete, but no guarantee is made to that effect. Drug information contained herein may be time sensitive. [employer] information has been compiled for use by healthcare practitioners and consumers in the [place] and therefore [employer] does not warrant that uses outside of the [place] are appropriate, unless specifically indicated otherwise. [employer] drug information does not endorse drugs, diagnose patients or recommend therapy. [employer] drug information is an informational resource designed [...] effective or appropriate for any given patient. [facility] does not assume any responsibility for any aspect of healthcare administered with the aid of information [facility] provides. The information contained herein is not intended to cover all possible uses, directions, precautions, warnings, drug interactions, allergic reactions, or adverse effects. If you have questions about the drugs you are taking, check with your doctor, nurse or pharmacist. Copyright 2098-2659 [facility] [employer]. Version: 10.03. Revision Date: 12/04/2020. acetaminophen (oral) (a SEET a MIN oh fen) Actamin, Anacin AF, Aurophen, Bromo [place], Children's Tylenol, Mapap, M-Pap, Pharbetol, Silapap Childrens, [...] is a pain reliever and a fever slag mixer. There are many brands and forms of [...] may report side effects to FDA at 8-167-RBR-9278. What other drugs will affect acetaminophen? Other drugs may affect acetaminophen, including prescription and jnxc-aqb-eefcxyf medicines, vitamins, and herbal products. Tell your [...] to ensure that the information provided by [employer]. ('[employer]') is accurate, up-to-date, and complete, but no guarantee is made to that effect. Drug information contained herein may be time sensitive. [employer] information has been compiled for use by healthcare practitioners and consumers in the [place] and therefore [employer] does not warrant that uses outside of the [place] are appropriate, unless specifically indicated otherwise. [employer] drug information does not endorse drugs, diagnose patients or recommend therapy. [employer] drug information is an informational resource designed [...] effective or appropriate for any given patient. [employer] does not assume any responsibility for any aspect of healthcare administered with the aid of information [employer] provides. The information contained herein is not intended to cover all possible uses, directions, precautions, warnings, drug interactions, allergic reactions, or adverse effects. If you have questions about the drugs you are taking, check with your doctor, nurse or pharmacist. Copyright 5002-7642 [employer]. Version: 21.04. Revision Date: 07/07/2020. meloxicam (oral/injection) [...] may report side effects to FDA at 2-941-VEV-2077. What other drugs will affect meloxicam? Ask [...] drugs may affect meloxicam, including prescription and guyg-tek-dnazcui medicines, vitamins, and herbal products. Not all [...] to ensure that the information provided by [employer]. ('[employer]') is accurate, up-to-date, and complete, but no guarantee is made to that effect. Drug information contained herein may be time sensitive. [employer] information has been compiled for use by healthcare practitioners and consumers in the [place] and therefore [employer] does not warrant that uses outside of the [place] are appropriate, unless specifically indicated otherwise. [employer] drug information does not endorse drugs, diagnose patients or recommend therapy. [employer] drug information is an informational resource designed [...] effective or appropriate for any given patient. [employer] does not assume any responsibility for any aspect of healthcare administered with the aid of information [employer] provides. The information contained herein is not intended to cover all possible uses, directions, precautions, warnings, drug interactions, allergic reactions, or adverse effects. If you have questions about the drugs you are taking, check with your doctor, nurse or pharmacist. Copyright 3915-2004 [employer]. Version: 14.. Revision Date: 10/03/2020. docusate (oral/rectal) [...]
--- OUTSIDE RECORDS SUMMARY | 2025-08-02 09:17 | XMS_ITS | Encounter Summary ---
Author Organization [employer] ([place], [place], [place], [place]) Address [address] [place] [address] Care Team Providers Care Client Services Vice President Name Role Phone Unavailable Primary Care Provider Unavailabl e Encounter Details Date Type Department Care Team (Late st Contact Info) Description 03/22/2021 Transcribed Document [facility] [place] Family Medicine [address] [place] [address] ProviderLibrado MD [address] [place] [address] Social History Tobacco Use Types [...] (irritable bowel syndrome); Obesity (BMI 30.0-34.9) Author: AMDDIE ALTAMIRANO MD-INT 03/22/2021 Hospitalist medicine consult discharge, [...] EDT Chloraseptic Menthol 1.4% topical spray: 5 [place], Oral, [place], Q2H, PRN for Sore Throat, Routine, Start [...] Oral, Q4H phenol 1.4% throat spray 5 [place], Oral, Q2H promethazine 25 mg tab 12.5 [...]
--- OUTSIDE RECORDS SUMMARY | 2025-08-02 09:17 | XMS_ITS | Encounter Summary ---
Author Organization [employer] ([place], [place], [place], [place]) Address [address] [place] [address] Care Team Providers Care Acid Etch Operator Name Role Phone Unavailable Primary Care Provider Unavailabl e Encounter Details Date Type Department Care Team (Late st Contact Info) Description 03/22/2021 Transcribed Document [facility] Family Medicine [facility]ly [facility], [facility] [place] [address] ProviderLibrado MD [address] [place] [address] Social History Tobacco Use Types [...] Librado ProviderMD - 03/22/2021 12:43 PM CDT [place] [id number] JOIE HAQ :1960 Visit Time:03/21/2021 Your Visit [...] Instructions From Your Care Team Community Services: [facility] Physical Therapy Home Health Services: [facility] [...] When 04/03/2021 09:15 AM EDT Where: [address] [facility] [address] [place] [address]- Medications What How Much When Instructions Next Dose aspirin (aspirin 81 mg oral delayed release tablet) 1 Tablet(s) Oral Two Times A Day Duration: 45 Day(s) cefadroxil (cefadroxil 500 mg oral capsule) 1 Capsule(s) Oral Every 12 hours Duration: 6 Day(s) docusate (docusate sodium 100 mg oral tablet) 1 Tablet(s) Oral Two Times A Day as needed for for constipation Pickup at [facility] oxyCODONE (oxyCODONE 5 mg oral tablet) [...] as needed for migraine headache Pharmacy Information [facility]: [address] [phone] Take your medications faithfully. Do NOT skip [...] Barley. Bulgur wheat. Millet. Bran muffins. Popcorn. [place] wafer crackers. Vegetables Sweet potatoes. Spinach. Kale. Artichokes. Cabbage. Broccoli. Green peas. Carrots. Squash. Fruits Berries. Pears. Apples. Oranges. Avocados. Prunes and raisins. Dried figs. Meats and Other Protein Sources [place], kidney, romero, and soy beans. Split peas. [...] humza has 11 g of protein. ??? [place] seeds ??? 1 oz has 5.5 g [...] floor. ??? Place frequently used items in bzzn-zu-jexck places ??? Keep electrical cables out of [...] ??? Using the bathroom. ??? Using household paper guillotine operator or toxic chemicals. ??? Touching or taking [...] through the local health department and the [place] Department for Public Health. Those organizations are [...] and need to call 911, notify the feeder switchboard operator that you have, or think you [...] clean your hands with an alcohol-based hand rag room supervisor that contains at least 60% alcohol. Clean your hands often. ??? Wash hands: Wash your hands often with soap and water for at least 20 seconds when visibly dirty. This is especially important after blowing your nose, coughing or sneezing, and going to the bathroom, and before eating or preparing food. ??? Hand rag room supervisor: Use an alcohol-based hand rag room supervisor with at least 60% alcohol, covering [...] and water or put them in the pressroom foreman. Clean all high-touch surfaces every day. [...] or body fluids on them. ??? Household paper guillotine operator and disinfectants: Clean the area or item [...] list of disinfectants can be found here: https://www.epa.gov/pesticide-registration/owlx-i-okxyksdqgncpp-atv-krcoxab-lh rs-cov-2 ondansetron (oral) (on ELAINA se rc) [...] may report side effects to FDA at 6-960-DJS-7293. What other drugs will affect ondansetron? Ondansetron [...] interact with ondansetron. This includes prescription and swbk-imj-zixidoj medicines, vitamins, and herbal products. Give a [...] to ensure that the information provided by [employer]. ('[employer]') is accurate, up-to-date, and complete, but no guarantee is made to that effect. Drug information contained herein may be time sensitive. [employer] information has been compiled for use by healthcare practitioners and consumers in the [place] and therefore [employer] does not warrant that uses outside of the [place] are appropriate, unless specifically indicated otherwise. [employer]'s drug information does not endorse drugs, diagnose patients or recommend therapy. [employer] drug information is an informational resource designed [...] effective or appropriate for any given patient. [facility] does not assume any responsibility for any aspect of healthcare administered with the aid of information [facility] provides. The information contained herein is not intended to cover all possible uses, directions, precautions, warnings, drug interactions, allergic reactions, or adverse effects. If you have questions about the drugs you are taking, check with your doctor, nurse or pharmacist. Copyright 8608-9510 [employer]. Version: 13.01. Revision Date: 09/20/2016. cephalexin (sef [...] may report side effects to FDA at 4-626-LVB-5663. What other drugs will affect cephalexin? Tell your doctor about all your other medicines, especially: ?? metformin; or ?? probenecid. This list is not complete. Other drugs may affect cephalexin, including prescription and uqur-uux-wmekaos medicines, vitamins, and herbal products. Not all [...] to ensure that the information provided by [employer]. ('[employer]') is accurate, up-to-date, and complete, but no guarantee is made to that effect. Drug information contained herein may be time sensitive. [employer] information has been compiled for use by healthcare practitioners and consumers in the [place] and therefore [employer] does not warrant that uses outside of the [place] are appropriate, unless specifically indicated otherwise. [employer] drug information does not endorse drugs, diagnose patients or recommend therapy. [employer] drug information is an informational resource designed [...] effective or appropriate for any given patient. [employer] does not assume any responsibility for any aspect of healthcare administered with the aid of information [employer] provides. The information contained herein is not intended to cover all possible uses, directions, precautions, warnings, drug interactions, allergic reactions, or adverse effects. If you have questions about the drugs you are taking, check with your doctor, nurse or pharmacist. Copyright 1684-6580 [employer]. Version: 10.. Revision Date: 12/04/2020. acetaminophen (oral) (a SEET a MIN oh fen) Actamin, Anacin AF, Aurophen, Bromo Mathews, Children's Tylenol, Mapap, M-Pap, Pharbetol, Silapap Childrens, [...] is a pain reliever and a fever fire extinguisher tester. There are many brands and forms [...] may report side effects to FDA at 0-025-FRE-9945. What other drugs will affect acetaminophen? Other drugs may affect acetaminophen, including prescription and sgbz-ivb-rsbjskq medicines, vitamins, and herbal products. Tell your [...] to ensure that the information provided by [employer]. ('[employer]') is accurate, up-to-date, and complete, but no guarantee is made to that effect. Drug information contained herein may be time sensitive. [employer] information has been compiled for use by healthcare practitioners and consumers in the [place] and therefore [employer] does not warrant that uses outside of the [place] are appropriate, unless specifically indicated otherwise. [employer]'s drug information does not endorse drugs, diagnose patients or recommend therapy. [employer] drug information is an informational resource designed [...] effective or appropriate for any given patient. [employer] does not assume any responsibility for any aspect of healthcare administered with the aid of information [employer] provides. The information contained herein is not intended to cover all possible uses, directions, precautions, warnings, drug interactions, allergic reactions, or adverse effects. If you have questions about the drugs you are taking, check with your doctor, nurse or pharmacist. Copyright 8692-4197 [employer]. Version: 21.04. Revision Date: 07/07/2020. meloxicam (oral/injection) [...] may report side effects to FDA at 0-225-CSF-8504. What other drugs will affect meloxicam? Ask [...] drugs may affect meloxicam, including prescription and leji-yuj-drcatjg medicines, vitamins, and herbal products. Not all [...] to ensure that the information provided by [employer]. ('[employer]') is accurate, up-to-date, and complete, but no guarantee is made to that effect. Drug information contained herein may be time sensitive. [employer] information has been compiled for use by healthcare practitioners and consumers in the [place] and therefore [employer] does not warrant that uses outside of the [place] are appropriate, unless specifically indicated otherwise. [employer] drug information does not endorse drugs, diagnose patients or recommend therapy. [employer] drug information is an informational resource designed [...] effective or appropriate for any given patient. [employer] does not assume any responsibility for any aspect of healthcare administered with the aid of information [employer] provides. The information contained herein is not intended to cover all possible uses, directions, precautions, warnings, drug interactions, allergic reactions, or adverse effects. If you have questions about the drugs you are taking, check with your doctor, nurse or pharmacist. Copyright 7744-3811 [employer]. Version: 14.. Revision Date: 10/03/2020. docusate (oral/rectal) [...]
--- OUTSIDE RECORDS SUMMARY | 2025-08-02 09:17 | XMS_ITS | Encounter Summary ---
Author Organization [employer] ([place], [place], [place], [place]) Address [address] [place] [address] Care Team Providers Care Automation Engineering Manager Name Role Phone Unavailable Primary Care Provider Unavailabl e Encounter Details Date Type Department Care Team (Late st Contact Info) Description 01/25/2021 Transcribed Document [facility] [place] Family Medicine [facility] [place] [address] ProviderLibrado MD [address] [place] [address] Social History Tobacco Use Types [...] - Librado ProviderMD - 01/25/2021 11:37 AM AUTOMATIC PUNCH PRESS OPERATOR Meds to Bed Enrollment Entered On: [...]
--- OUTSIDE RECORDS SUMMARY | 2025-08-02 09:17 | XMS_ITS | Encounter Summary ---
Author Organization [employer] ([place], [place], [place], [place]) Address [address] [place] [address] Care Team Providers Care Relay Tester Helper Name Role Phone Unavailable Primary Care Provider Unavailabl e Encounter Details Date Type Department Care Team (Late st Contact Info) Description 03/21/2021 Transcribed Document [facility] Medicine [address] [place] [address] ProviderLibrado MD [address] [place] [address] Social History Tobacco Use [...] EDT Electronically signed by Kristina Dobbs Conversion Psychiatric Mental Health Nurse Cerner at 03/21/2023 1:04 PM CDT documented in this encounter Plan of Treatment Not on file documented as of this encounter Visit Diagnoses Not on filedocumented in this encounter
--- OUTSIDE RECORDS SUMMARY | 2025-08-02 09:17 | XMS_ITS | Encounter Summary ---
Author Organization [employer] ([place], [place], [place], [place]) Address [address] [place] [address] Care Team Providers Care Jukebox Route Driver Name Role Phone Unavailable Primary Care Provider Unavailabl e Encounter Details Date Type Department Care Team (Late st Contact Info) Description 03/21/2021 Transcribed Document [facility] [place] Family Medicine [facility] [place] [address] ProviderLibrado MD [address] [place] [address] Social History Tobacco Use Types Packs/Day [...] : No, patient refuses Advance Directive information Baetrice Torres RN - 03/21/2021 10:42 EDT Anesthesia/Transfusion [...] : Sandip Tavares Emergency Contact #1 or [phone] Emergency Contact #1 Relationship : Spouse Emergency Contact #2 : . Emergency Contact #2 Phone Number : . Emergency Contact #2 Relationship : . Information Obtained From : Patient Primary Language : Latvian Preferred Communication Mode : Verbal Communication Barrier : None Intelligence Engineer Needed : No Currently Lactating : No [...] Level : 46 or > High Risk Rosser Fall Interventions : Adequate lighting, Assistive devices [...] Source : Measured Height Entry Format : [place] Height, Feet : 5 ft(Converted to: 152 cm, 60 Inch) Height, Inches : 7 Inch(Converted to: 0 ft 7 Inch, 17.78 cm) Clinical Height : 170.18 cm Weight Source : Standing scale Weight Entry Format : [place] Clinical Dosing Weight : 93.18 kg Weight, Pounds : 205 lb Body Surface Area (BSA) : 2.05 m2 Body Mass Index : 32.2 kg/m2 (HI) Gail Body Weight : 61 kg Beatrice Torres [...] Beatrice Torres RN - 03/21/2021 10:42 EDT [place] Suicide Severity Rating Scale (C-SSRS) CSSRS Past [...] EDT Electronically signed by Kristina Dobbs Conversion Associate Professor Of Automation Cerner at 03/21/2023 12:53 PM CDT documented in this encounter Plan of Treatment Not on file documented as of this encounter Visit Diagnoses Not on filedocumented in this encounter
[2025-08-02 09:34] LABS: Chloride 110 mmol/L (98-107)
[2025-08-02 09:35] LABS: Albumin Level 3.8 g/dl (3.5-5.0); Potassium 4.4 mmoL/L (3.5-5.1); Sodium 139 mmol/L (136-145)
[2025-08-02 09:37] LABS: Blood Urea Nitrogen 40 mg/dl (7-17); Creatinine,Serum 1.00 mg/dl (0.52-1.04); Estimated Glomerular Filt Rate 56 ml/min (>60); GFR (African American) 68 ML/MIN (>60)
[2025-08-02 09:38] LABS: Alanine Aminotransferase 30 U/L (12-78); Albumin/Globulin Ratio 1.6 (1.1-1.8); Alkaline Phosphatase 115 U/L (38-126); Anion Gap 8.4 mEq/L (5-15); Aspartate Amino Transferase 26 U/L (14-36); Bilirubin,Total 0.4 mg/dl (0.2-1.3); Calcium 9.0 mg/dl (8.4-10.2); Carbon Dioxide 25 mmol/L (22.0-30.0); Globulin 2.4 g/dL (1.3-3.2); Glucose 96 mg/dl (74-100); Total Protein,Serum 6.2 g/dl (6.3-8.2)
[2025-08-02 10:00] LABS: C-Reactive Protein 9.0 mg/L (0-4)
[2025-08-02] MEDS: NEOSPORIN OINTMENT 0.9GM UDP 1 EACH TP (15:49)
== END 2025-08-02 15:50 | disposition home or self-care (01) ==
LOC: INF 09:01
PROVIDERS: PCP Family Medicine; Visit Provider Podiatrist
DX: I83.20 Varicose veins of unspecified lower extremity with both ulcer and inflammation (principal); M86.172 Other acute osteomyelitis, left ankle and foot
CPT/HCPCS: 36592; 80053; 85025; 85651; 86140; 99211; G0463

== ENCOUNTER 2025-08-08 09:15 | Outpatient (CLI) | payer BC, SELFPAY ==
--- OUTSIDE RECORDS SUMMARY | 2025-08-09 10:54 | XMS_ITS | Encounter Summary ---
Author Organization [employer] ([place], [place], [place], [place]) Address [address] [place] [address] Care Team Providers Care Livestock Broker Name Role Phone Unavailable Primary Care Provider Unavailabl e Encounter Details Date Type Department Care Team (Late st Contact Info) Description 03/22/2021 Transcribed Document [facility] [place] Family Medicine [facility] [address] ProviderLibrado MD [address] [place] [address] Social History Tobacco Use Types Packs/Day [...] Address: Phone Number: [facility] [address], [address] Patient Offered Choice/Affiliations Explained : [...]
--- OUTSIDE RECORDS SUMMARY | 2025-08-09 10:54 | XMS_ITS | Encounter Summary ---
Author Organization [employer] ([place], [place], [place], [place]) Address [address] [place] [address] Care Team Providers Care Obiee Lead Developer Name Role Phone Unavailable Primary Care Provider Unavailabl e Encounter Details Date Type Department Care Team (Late st Contact Info) Description 03/22/2021 Transcribed Document [facility] [place] Family Medicine [facility] [place] [address] ProviderLibrado MD [address] [place] [address] Social History Tobacco Use Types [...] EugeneD Electronically signed by Kristina Dobbs Conversion Assistant Professor Of Forestry Cerner at 03/21/2023 1:10 PM CDT documented in this encounter Plan of Treatment Not on file documented as of this encounter Visit Diagnoses Not on filedocumented in this encounter
--- OUTSIDE RECORDS SUMMARY | 2025-08-09 10:54 | XMS_ITS | Encounter Summary ---
Author Organization [employer] ([place], [place], [place], [place]) Address [address] [place] [address] Care Team Providers Care Air Traffic Control Equipment Repairer Name Role Phone Unavailable Primary Care Provider Unavailabl e Encounter Details Date Type Department Care Team (Late st Contact Info) Description 01/25/2021 Transcribed Document [facility] [place] [facility] [place] [address] ProviderLibrado MD [address] [place] [address] Social History Tobacco Use Types [...] - Librado ProviderMD - 01/25/2021 11:37 AM INSTALL TECHNICIAN Meds to Bed Enrollment Entered On: 01/25/2021 11:37 EST Performed On: 01/25/2021 11:37 EST by Deisy Collins RN Meds to Bed Enrollment Patient Enrollment Decision: : No/do not enroll in meds to bed program Deisy Collins RN - 01/25/2021 11:37 EST Electronically signed by Dilia [facility] Conversion Jaw Skinner Cerner at 03/21/2023 12:59 PM CDT documented in this encounter Plan of Treatment Not on file documented as of this encounter Visit Diagnoses Not on filedocumented in this encounter
--- OUTSIDE RECORDS SUMMARY | 2025-08-09 10:54 | XMS_ITS | Encounter Summary ---
Author Organization [employer] ([place], [place], [place], [place]) Address [address] [place] [address] Care Team Providers Care Roof Assembler Name Role Phone Unavailable Primary Care Provider Unavailabl e Encounter Details Date Type Department Care Team (Late st Contact Info) Description 03/22/2021 Transcribed Document [facility] [place] [facility] [place] [address] ProviderLibrado MD [address] [place] [address] Social History Tobacco Use Types Packs/Day [...] 13:07 EDT Transporter Signature : Columba [facility] Coord Patient Disposition, General : [...]
--- OUTSIDE RECORDS SUMMARY | 2025-08-09 10:54 | XMS_ITS | Encounter Summary ---
Author Organization [employer] ([place], [place], [place], [place]) Address [address] [place] [address] Care Team Providers Care Floor Director Name Role Phone Unavailable Primary Care Provider Unavailabl e Encounter Details Date Type Department Care Team (Late st Contact Info) Description 03/22/2021 Transcribed Document [facility] Family Medicine [address] [place] [address] ProviderLibrado MD [address] [place] [address] Social History Tobacco Use Types [...] N/A Warfarin Discharge Ins : N/A Danna Avial RN - 03/22/2021 11:38 EDT Electronically signed by Dilia [facility] Conversion Road Freight Brake Coupler Cerner at 03/21/2023 1:05 PM CDT documented in this encounter Plan of Treatment Not on file documented as of this encounter Visit Diagnoses Not on filedocumented in this encounter
--- OUTSIDE RECORDS SUMMARY | 2025-08-09 10:54 | XMS_ITS | Encounter Summary ---
Author Organization [employer] ([place], [place], [place], [place]) Address [address] [place] [address] Care Team Providers Care Cattle Dehorner Name Role Phone Unavailable Primary Care Provider Unavailabl e Encounter Details Date Type Department Care Team (Late st Contact Info) Description 03/22/2021 Transcribed Document [facility] [place] [address] ProviderLibrado MD [address] [place] [address] Social History Tobacco Use Types [...] Barley. Bulgur wheat. Millet. Bran muffins. Popcorn. [place] wafer crackers. Vegetables Sweet potatoes. Spinach. Kale. Artichokes. Cabbage. Broccoli. Green peas. Carrots. Squash. Fruits Berries. Pears. Apples. Oranges. Avocados. Prunes and raisins. Dried figs. Meats and Other Protein Sources [place], kidney, romero, and soy beans. Split peas. [...] humza has 11 g of protein. ?? [place] seeds ??? 1 oz has 5.5 g [...] floor. ?? Place frequently used items in gryr-bv-mdsre places ?? Keep electrical cables out of [...] ?? Using the bathroom. ?? Using household voice writing reporter or toxic chemicals. ?? Touching or taking [...] all positive cases are reported through the [facility] health department and the [place] [...] and need to call 911, notify the refinery operator that you have, or think you [...] clean your hands with an alcohol-based hand neon electrician that contains at least 60% alcohol. Clean your hands often. ??? Wash hands: Wash your hands often with soap and water for at least 20 seconds when visibly dirty. This is especially important after blowing your nose, coughing or sneezing, and going to the bathroom, and before eating or preparing food. ??? Hand neon electrician: Use an alcohol-based hand neon electrician with at least 60% alcohol, covering all [...] and water or put them in the executive chef. Clean all high-touch surfaces every day. Clean [...] or body fluids on them. ??? Household voice writing reporter and disinfectants: Clean the area or item [...] list of disinfectants can be found here: https://www.epa.gov/pesticide-registration/plpx-f-tlrhozngqvtss-brv-enypvae-ae rs-cov-2 documented in this encounter Plan of Treatment Not on file documented as of this encounter Visit Diagnoses Not on filedocumented in this encounter
--- OUTSIDE RECORDS SUMMARY | 2025-08-09 10:54 | XMS_ITS | Clinical Summary ---
Author Organization [facility] Address [address] [place] [address] Phone Care Team Providers Care Wet Silk Hanger Name Role Phone Marcio STILES, Brian Kate [ ] Conditions or Problems Problem Name Problem Code Onset Date Status Entry Date Provider Comment Standard Description Annotate Eschar 414180427 (SNOMED CT) Active Brian Buckley MD Skin eschar Hematoma of arm 404508899 (SNOMED CT) Active Brian Buckley MD Hematoma Other obesity due to excess calories 991864529 (SNOMED CT) Active Yasmin Minor Simple obesity Gram negative infection 888254226 (SNOMED CT) Active Brian Buckley MD 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-negative bacteria Wound infection 83338617 (SNOMED CT) Active Brian Buckley MD Local infection of wound Knee, right, initial encounter(s) , 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 T84.53xA (ICD-10-CM) Active Clare Hemal Infection and 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 prosthesis, initial encounter Effusion, right knee M25.461 (ICD-10-CM) Active Clare Hemal Effusion, right knee Cellulitis of RLE 741685338 (SNOMED CT) Active Clare Hemal Cellulitis of lower limb Medications Medication Instructions Start Date Stop Date Generic Name NDC Provider BACTRIM DS 800-160 MG TABS Take 1 tablet by mouth twice a day 5 sulfamethoxazo le-trimethopri m [id number] Brian Buckley MD CLINDAMYCIN HCL 150 MG CAPS by mouth clindamycin hcl 51842123666 Lois Suarez DIFLUCAN 150 MG TABS by mouth fluconazole 66382279890 Lois Suarez ALLOPURINOL 100 MG TABS by mouth once a day allopurinol 86378679813 Yasmin Minor CEFADROXIL 500 MG CAPS by mouth three times a day cefadroxil 50565431952 Yasmin Minor CLINDAMYCIN HCL 150 MG CAPS by mouth clindamycin hcl 05337009891 Yasmin Minor DICYCLOMINE HCL 20 MG TABS by mouth dicyclomine 32310530314 Yasmin Minor DIFLUCAN 150 MG TABS by mouth fluconazole 54831675339 Yasmin Minor DOXYCYCLINE HYCLATE 100 MG CAPS by mouth twice a day doxycycline hyclate 75288664131 Yasmin Minor FUROSEMIDE 40 MG TABS by mouth once a day furosemide 95645321937 Yasmin Minor LORATADINE 10 MG TABS by mouth once a day loratadine 46940602745 Yasmin Minor LOSARTAN POTASSIUM 25 MG TABS by mouth once a day losartan 23406894939 Yasmin Minor MELOXICAM 15 MG TABS by mouth once a day meloxicam 40432345547 Yasmin Minor METOPROLOL SUCCINATE ER 100 MG [id number]-TCB by mouth twice a day metoprolol succinate 23193503909 Yasmin Minor MONTELUKAST SODIUM 10 MG TABS by mouth montelukast 37054945433 Yasmin Minor OSTEO BI-FLEX ONE PER DAY TABS by mouth once a day glucosamine-d3 -boswellia serr 95984958865 Yasmin Minor Medications Administered No information available. [...] Procedures Code Procedure Name Date Entry Date CPT-58129 CMP CPT-76399 Sedimentation Rate (ESR) 202 02/02/09 CPT-08991 C- reactive protein [id number] CBC with Differential 2022 CPT-21531 CMP CPT-98807 C- reactive protein [id number] CBC with Differential 2022 CPT-29973 Sedimentation Rate (ESR) 202 02/01/25 Vital Signs [...]
--- OUTSIDE RECORDS SUMMARY | 2025-08-09 10:54 | XMS_ITS | Encounter Summary ---
Author Organization [employer] ([place], [place], [place], [place]) Address [address] [place] [address] Care Team Providers Care Lead Enterprise Architect Name Role Phone Unavailable Primary Care Provider Unavailabl e Encounter Details Date Type Department Care Team (Late st Contact Info) Description 01/25/[address] [facility] [place] Medicine [facility] [place] [address] ProviderLibrado MD [address] [place] [address] Social History Tobacco Use Types Packs/Day Years Used Date Smoking Tobacco: Never Assessed Comments Unknown Sex and Gender Information Value Date Recorded Sex Assigned at Not on file Legal Sex Female 1:10 PM CDT Gender Identity Not on file Sexual Orientation Not on file documented as of this encounter Miscellaneous Notes * Cerner Conversion Note - Librado ProviderMD - 01/25/2021 11:29 AM SENIOR ACCOUNT DIRECTOR PAT Adult Entered On: 01/25/2021 11:35 EST [...] Source : Measured Height Entry Format : [place] Height, Feet : 5 ft(Converted to: 152 cm, 60 Inch) Height, Inches : 7 Inch(Converted to: 0 ft 7 Inch, 17.78 cm) Clinical Height : 170.18 cm Weight Source : Standing scale Weight Entry Format : [place] Clinical [facility] Weight : 99.09 kg Weight, Pounds : 218 lb Body Surface Area (BSA) : 2.1 m2 Body Mass Index : 34.2 kg/m2 (HI) [place] Body Weight : 61 kg Deisy Collins [...] Deisy Collins RN - 01/25/2021 11:29 EST [place] Suicide Severity Rating Scale (C-SSRS) CSSRS Past [...] : Sandip Tavares Emergency Contact #1 or [phone] Emergency Contact #1 Relationship : Spouse Emergency Contact #2 : . Emergency Contact #2 Phone Number : . Emergency Contact #2 Relationship : . Primary Language : Sammarinese Preferred Communication Mode : Verbal Communication Barrier : None Harvest Manager Needed : No Deisy Collins RN - [...] EST Electronically signed by Kristina Dobbs Conversion Mechanic Welder Truck Driver Cerner at 03/21/2023 1:11 PM CDT documented in this encounter Plan of Treatment Not on file documented as of this encounter Visit Diagnoses Not on filedocumented in this encounter
--- OUTSIDE RECORDS SUMMARY | 2025-08-09 10:55 | XMS_ITS | Encounter Summary ---
Author Organization [employer] ([place], [place], [place], [place]) Address [address] [place] [address] Care Team Providers Care Postal Inspector Name Role Phone Unavailable Primary Care Provider Unavailabl e Encounter Details Date Type Department Care Team (Late st Contact Info) Description 03/21/2021 Transcribed Document [facility] [place] Family Medicine [facility] [place] [address] ProviderLibrado MD [address] [place] [address] Social History Tobacco Use Types Packs/Day [...] JOIE TAVARES/Sex: 1960 Female Med Rec #: [id number] Physician: DARY GAMEZ JR, JR, MD-ORT Financial #: [id number] Pt. Type: O Room/Bed: EAS/1 Admit/Disch: 03/21/21 04:39:00 - Institution: [facility] PAC[facility] Case Times Entry 1 In PACU I 03/21/21 09:16:00 Ready for PACU 03/21/21 10:10:00 Discharge Discharge from PACU 03/21/21 10:10:00 I Last Modified By: MAN GOODMAN 03/21/21 10:10:56 [facility] PACU Case Times Audit 03/21/21 10:10:56 Refractive Surgeon: VALERIA Modifier: COLEMAM <+> 1 Ready for PACU Discharge <+> 1 Discharge from PACU I Finalized By: MAN GOODMAN Document Signatures Signed By: MAN GOODMAN 03/21/21 10:11 Electronically signed by Dilia [facility] Conversion Professional Housing Consultant Cerner at 03/21/2023 1:17 PM CDT documented in this encounter Plan of Treatment Not on file documented as of this encounter Visit Diagnoses Not on filedocumented in this encounter
--- OUTSIDE RECORDS SUMMARY | 2025-08-09 10:55 | XMS_ITS | Encounter Summary ---
Author Organization [employer] ([place], [place], [place], [place]) Address [address] [place] [address] Care Team Providers Care Pipeline Operator Name Role Phone Unavailable Primary Care Provider Unavailabl e Encounter Details Date Type Department Care Team (Late st Contact Info) Description 03/22/2021 Transcribed Document [facility] [place] [facility] [place] [address] ProviderLibrado MD [address] [place] [address] Social History Tobacco Use Types [...] Librado ProviderMD - 03/22/2021 12:43 PM CDT [place] [id number] JOIE HAQ :1960 Visit Time:03/21/2021 Your Visit [...] Instructions From Your Care Team Community Services: [facility] Physical Therapy Home Health Services: [facility] Medical Equipment for Home Use: Patient [...] When 04/03/2021 09:15 AM EDT Where: [address] [facility] [address] [place] [address]- Medications What How Much When Instructions Next Dose aspirin (aspirin 81 mg oral delayed release tablet) 1 Tablet(s) Oral Two Times A Day Duration: 45 Day(s) cefadroxil (cefadroxil 500 mg oral capsule) 1 Capsule(s) Oral Every 12 hours Duration: 6 Day(s) docusate (docusate sodium 100 mg oral tablet) 1 Tablet(s) Oral Two Times A Day as needed for for constipation Pickup at [facility] oxyCODONE (oxyCODONE 5 mg oral tablet) [...] as needed for migraine headache Pharmacy Information [facility]: [address] [phone] Take your medications faithfully. Do NOT skip [...] Barley. Bulgur wheat. Millet. Bran muffins. Popcorn. [place] wafer crackers. Vegetables Sweet potatoes. Spinach. Kale. Artichokes. Cabbage. Broccoli. Green peas. Carrots. Squash. Fruits Berries. Pears. Apples. Oranges. Avocados. Prunes and raisins. Dried figs. Meats and Other Protein Sources [place], kidney, romero, and soy beans. Split peas. [...] humza has 11 g of protein. ??? [place] seeds ??? 1 oz has 5.5 g [...] floor. ??? Place frequently used items in kcqh-fk-xugql places ??? Keep electrical cables out of [...] ??? Using the bathroom. ??? Using household hand stamper or toxic chemicals. ??? Touching or taking [...] through the local health department and the [place] Department for Public Health. Those organizations are [...] and need to call 911, notify the splicing machine operator automatic that you have, or think you might [...] clean your hands with an alcohol-based hand blunger that contains at least 60% alcohol. Clean your hands often. ??? Wash hands: Wash your hands often with soap and water for at least 20 seconds when visibly dirty. This is especially important after blowing your nose, coughing or sneezing, and going to the bathroom, and before eating or preparing food. ??? Hand blunger: Use an alcohol-based hand blunger with at least 60% alcohol, covering all [...] and water or put them in the tow feeder. Clean all high-touch surfaces every day. Clean [...] or body fluids on them. ??? Household hand stamper and disinfectants: Clean the area or item [...] list of disinfectants can be found here: https://www.epa.gov/pesticide-registration/kkbp-r-afvmagkrhxgic-vbr-qovmtwm-dn rs-cov-2 ondansetron (oral) (on ELAINA se rc) [...] may report side effects to FDA at 4-420-LFF-3493. What other drugs will affect ondansetron? Ondansetron [...] interact with ondansetron. This includes prescription and jfwy-alh-nvgpdoi medicines, vitamins, and herbal products. Give a [...] to ensure that the information provided by [employer]. ('Multum') is accurate, up-to-date, and complete, but no guarantee is made to that effect. Drug information contained herein may be time sensitive. [employer] information has been compiled for use by healthcare practitioners and consumers in the [place] and therefore [employer] does not warrant that uses outside of the [place] are appropriate, unless specifically indicated otherwise. Mult[employer]'s drug information does not endorse drugs, diagnose patients or recommend therapy. Progressive [employer] drug information is an informational resource designed [...] effective or appropriate for any given patient. [facility] does not assume any responsibility for any aspect of healthcare administered with the aid of information [facility] provides. The information contained herein is not intended to cover all possible uses, directions, precautions, warnings, drug interactions, allergic reactions, or adverse effects. If you have questions about the drugs you are taking, check with your doctor, nurse or pharmacist. Copyright 1545-4865 [employer]. Version: 13.01. Revision Date: 09/20/2016. cephalexin (sef [...] may report side effects to FDA at 6-507-GON-3956. What other drugs will affect cephalexin? Tell your doctor about all your other medicines, especially: ?? metformin; or ?? probenecid. This list is not complete. Other drugs may affect cephalexin, including prescription and hzal-mjx-qyjrqeb medicines, vitamins, and herbal products. Not all [...] to ensure that the information provided by [employer]. ('[employer]ell[employer]um') is accurate, up-to-date, and complete, but no guarantee is made to that effect. Drug information contained herein may be time sensitive. [employer] information has been compiled for use by healthcare practitioners and consumers in the [place] and therefore [employer] does not warrant that uses outside of the [place] are appropriate, unless specifically indicated otherwise. [employer] drug information does not endorse drugs, diagnose patients or recommend therapy. [employer] drug information is an informational resource designed [...] effective or appropriate for any given patient. [employer] does not assume any responsibility for any aspect of healthcare administered with the aid of information [employer] provides. The information contained herein is not intended to cover all possible uses, directions, precautions, warnings, drug interactions, allergic reactions, or adverse effects. If you have questions about the drugs you are taking, check with your doctor, nurse or pharmacist. Copyright 5190-3092 Fl[employer]. Version: 10.. Revision Date: 12/04/2020. acetaminophen (oral) (a SEET a MIN oh fen) Actamin, Anacin AF, Aurophen, Bromo Meyers Chuck, Children's Tylenol, Mapap, M-Pap, Pharbetol, Silapap Childrens, [...] is a pain reliever and a fever structural ironworker. There are many brands and forms of [...] may report side effects to FDA at 7-553-MDS-2142. What other drugs will affect acetaminophen? Other drugs may affect acetaminophen, including prescription and zyej-wiz-udgrhxe medicines, vitamins, and herbal products. Tell your [...] to ensure that the information provided by [employer]. ('Multum') is accurate, up-to-date, and complete, but no guarantee is made to that effect. Drug information contained herein may be time sensitive. [employer] information has been compiled for use by healthcare practitioners and consumers in the [place] and therefore [employer] does not warrant that uses outside of the [place] are appropriate, unless specifically indicated otherwise. [employer]'s drug information does not endorse drugs, diagnose patients or recommend therapy. [employer] drug information is an informational resource designed [...] effective or appropriate for any given patient. [employer] does not assume any responsibility for any aspect of healthcare administered with the aid of information [employer] provides. The information contained herein is not intended to cover all possible uses, directions, precautions, warnings, drug interactions, allergic reactions, or adverse effects. If you have questions about the drugs you are taking, check with your doctor, nurse or pharmacist. Copyright 6750-3063 Flasma. Version: 21.04. Revision Date: 07/07/2020. meloxicam (oral/injection) [...] may report side effects to FDA at 0-140-HZS-0587. What other drugs will affect meloxicam? Ask [...] drugs may affect meloxicam, including prescription and asfg-hyx-cdbsuve medicines, vitamins, and herbal products. Not all [...] to ensure that the information provided by [employer]. ('Multum') is accurate, up-to-date, and complete, but no guarantee is made to that effect. Drug information contained herein may be time sensitive. [employer] information has been compiled for use by healthcare practitioners and consumers in the [place] and therefore [employer] does not warrant that uses outside of the [place] are appropriate, unless specifically indicated otherwise. [employer] drug information does not endorse drugs, diagnose patients or recommend therapy. [employer] drug information is an informational resource designed [...] effective or appropriate for any given patient. [employer] does not assume any responsibility for any aspect of healthcare administered with the aid of information [employer] provides. The information contained herein is not intended to cover all possible uses, directions, precautions, warnings, drug interactions, allergic reactions, or adverse effects. If you have questions about the drugs you are taking, check with your doctor, nurse or pharmacist. Copyright 5888-9197 Fl[employer]. Version: 14.. Revision Date: 10/03/2020. docusate (oral/rectal) [...]
--- OUTSIDE RECORDS SUMMARY | 2025-08-09 10:55 | XMS_ITS | Encounter Summary ---
Author Organization [employer] ([place], [place], [place], [place]) Address [address] [place] [address] Care Team Providers Care Medical Staff Assistant Name Role Phone Unavailable Primary Care Provider Unavailabl e Encounter Details Date Type Department Care Team (Late st Contact Info) Description 03/21/2021 Transcribed Document [facility] Family Medicine [facility] [place] [address] ProviderLibrado MD [address] [place] [address] Social History Tobacco Use Types Packs/Day [...] Source : Measured Height Entry Format : [place] Height, Feet : 5 ft(Converted to: 152 cm, 60 Inch) Height, Inches : 7 Inch(Converted to: 0 ft 7 Inch, 17.78 cm) Clinical Height : 170.18 cm Weight Source : Standing scale Weight Entry Format : [place] Clinical Dosing Weight : 93.18 kg Weight, Pounds : 205 lb Body Surface Area (BSA) : 2.05 m2 Body Mass Index : 32.2 kg/m2 (HI) [place] Body Weight : 61 kg BILLY ALFARO [...] BILLY ALFARO RN - 03/21/2021 6:36 EDT [place] Suicide Severity Rating Scale (C-SSRS) CSSRS Past [...] : Sandip Tavares Emergency Contact #1 or [phone] Emergency Contact #1 Relationship : Spouse Emergency Contact #2 : . Emergency Contact #2 Phone Number : . Emergency Contact #2 Relationship : . Information Obtained From : Patient Primary Language : Urdu Preferred Communication Mode : Verbal Communication Barrier : None Branch Associate Teller Needed : No Currently Lactating : No [...]
--- OUTSIDE RECORDS SUMMARY | 2025-08-09 10:55 | XMS_ITS | Encounter Summary ---
Author Organization [employer] ([place], [place], [place], [place]) Address [address] [place] [address] Care Team Providers Care Metal Polisher Name Role Phone Unavailable Primary Care Provider Unavailabl e Encounter Details Date Type Department Care Team (Late st Contact Info) Description 03/21/2021 Transcribed Document [facility] [place] [facility] [place] [address] ProviderLibrado MD [address] [place] [address] Social History Tobacco Use Types Packs/Day [...] : Sandip Tavares Emergency Contact #1 or [phone] Emergency Contact #1 Relationship : Spouse Emergency Contact #2 : . Emergency Contact #2 Phone Number : . Emergency Contact #2 Relationship : . Information Obtained From : Patient Primary Language : Indonesian Preferred Communication Mode : Verbal Communication Barrier : None Printing Screen Assembler Needed : No Currently Lactating : No [...] Level : 46 or > High Risk Mcclellan Fall Interventions : Adequate lighting, Assistive devices [...] Source : Measured Height Entry Format : [place] Height, Feet : 5 ft(Converted to: 152 cm, 60 Inch) Height, Inches : 7 Inch(Converted to: 0 ft 7 Inch, 17.78 cm) Clinical Height : 170.18 cm Weight Source : Standing scale Weight Entry Format : [place] Clinical Dosing Weight : 93.18 kg Weight, Pounds : 205 lb Body Surface Area (BSA) : 2.05 m2 Body Mass Index : 32.2 kg/m2 (HI) [place] Body Weight : 61 kg Beatrice Torres [...] Patient Needs Meds Crushed/Liquid : No Beatrice oTrres RN - 03/21/2021 10:42 EDT Nutrition History Eating Poorly Due to Decreased Appetite : No Unplanned Weight Loss in Past 3-6 Months : No Malnutrition Screening Tool Total(mal) : 0 Malnutrition Screening Tool Risk Level : Patient not at risk Beatrice Torres RN - 03/21/2021 10:42 EDT [place] Suicide Severity Rating Scale (C-SSRS) CSSRS Past [...]
--- OUTSIDE RECORDS SUMMARY | 2025-08-09 10:55 | XMS_ITS | Encounter Summary ---
Author Organization [employer] ([place], [place], [place], [place]) Address [address] [place] [address] Care Team Providers Care Tank Systems Maintainer Name Role Phone Unavailable Primary Care Provider Unavailabl e Encounter Details Date Type Department Care Team (Late st Contact Info) Description 03/21/2021 Transcribed Document [facility] [place] Family Medicine [facility] [place] [address] ProviderLibrado MD [address] [place] [address] Social History Tobacco Use Types Packs/Day [...] JOIE TAVARES/Sex: 1960 Female Med Rec #: [id number] Physician: DARY GAMEZ JR, JR, MD-ORT Financial #: [id number] Pt. Type: O Room/Bed: EAS/1 Admit/Disch: 03/21/21 04:39:00 - [place] [facility] [place]Op Case Times Entry 1 In Preop 03/21/21 05:20:00 Ready for Holding n/a Room Patient Ready for 03/21/21 06:35:00 Surgery Patient Out of Preop 03/21/21 07:26:00 Patient Out of n/a Holding Room Last Modified By: OMI SELBY 03/21/21 09:40:02 [facility] PreOp Case Times Audit 03/21/21 09:40:02 Link Trainer: EDWARD Modifier: [email or web address] <+> 1 Patient Out of Preop Finalized By: OMI SELBY Document Signatures Signed By: OMI SELBY 03/21/21 09:40 Electronically signed by Dilia [facility] Conversion Citizenship Teacher Cerner at 03/21/2023 12:55 PM CDT documented in this encounter Plan of Treatment Not on file documented as of this encounter Visit Diagnoses Not on filedocumented in this encounter
--- OUTSIDE RECORDS SUMMARY | 2025-08-09 10:55 | XMS_ITS | Encounter Summary ---
Author Organization [employer] ([place], [place], [place], [place]) Address [address] [place] [address] Care Team Providers Care Sketch Artist Name Role Phone Unavailable Primary Care Provider Unavailabl e Encounter Details Date Type Department Care Team (Late st Contact Info) Description 03/08/2021 Transcribed Document [facility] [place] [facility] [place] [address] ProviderLibrado MD [address] [place] [address] Social History Tobacco Use Types Packs/Day [...] Source : Measured Height Entry Format : [place] Height, Feet : 5 ft(Converted to: 152 cm, 60 Inch) Height, Inches : 7 Inch(Converted to: 0 ft 7 Inch, 17.78 cm) Clinical Height : 170.18 cm Weight Source : Standing scale Weight Entry Format : [place] Clinical Dosing Weight : 95 kg Weight, Pounds : 209 lb Body Surface Area (BSA) : 2.06 m2 Body Mass Index : 32.8 kg/m2 (HI) [place] Body Weight : 61 kg Deisy Collins [...] Deisy Collins RN - 03/08/2021 9:34 EDT [place] Suicide Severity Rating Scale (C-SSRS) CSSRS Past [...] : Sandip Tavares Emergency Contact #1 or [phone] Emergency Contact #1 Relationship : Spouse Emergency Contact #2 : . Emergency Contact #2 Phone Number : . Emergency Contact #2 Relationship : . Primary Language : Slovak Preferred Communication Mode : Verbal Communication Barrier : None Camera Technician Needed : No Deisy Collins RN [...]
--- OUTSIDE RECORDS SUMMARY | 2025-08-09 10:55 | XMS_ITS | Encounter Summary ---
Author Organization [employer] ([place], [place], [place], [place]) Address [address] [place] [address] Care Team Providers Care Cancer Registry Coordinator Name Role Phone Unavailable Primary Care Provider Unavailabl e Encounter Details Date Type Department Care Team (Late st Contact Info) Description 03/21/2021 Transcribed Document [facility] [place] Family Medicine [facility] [place] [address] ProviderLibrado MD [address] [place] [address] Social History Tobacco Use Types Packs/Day [...] BARBARA NOYOLA, PT - 03/21/2021 12:00 EDT Nursing Home Goals Other PT LTG Grid Goal [...]
--- OUTSIDE RECORDS SUMMARY | 2025-08-09 10:55 | XMS_ITS | Encounter Summary ---
Author Organization [employer] ([place], [place], [place], [place]) Address [address] [place] [address] Care Team Providers Care Tire Builder Name Role Phone Unavailable Primary Care Provider Unavailabl e Encounter Details Date Type Department Care Team (Late st Contact Info) Description 03/21/2021 Transcribed Document [facility] [place] Family Medicine [facility] [place] [address] ProviderLibrado MD [address] [place] [address] Social History Tobacco Use Types Packs/Day [...] JOIE TAVARES/Sex: 1960 Female Med Rec #: [id number] Physician: DARY GAMEZ JR, JR, MD-ORT Financial #: [id number] Pt. Type: O Room/Bed: EAS/1 Admit/Disch: 03/21/21 04:39:00 - Institution: [facility] IntraOp Case Attendance Entry 1 Entry 2 Entry 3 Case Attendee DARY GAMEZ JR, JR, WHITAKER, CARLY, Davis, Stephen J, RNFA MD-ORT VACUUM BOTTLE ASSEMBLER-ANS Role Performed Surgeon/Proceduralist, VACUUM BOTTLE ASSEMBLER/Nurse Sandal Parts Assembler NAILA First Time In 03/21/21 07:28:00 03/21/21 [...] Performed Scrub, First Scrub, Second Cell Saver Avionics Systems Repairer Time In 03/21/21 07:28:00 03/21/21 07:28:00 03/21/21 [...] ATTENDEE #2 Sarah Biggs LONGSWORTH, GARY, MAGALYS Resource Manager Role Performed Vendor Chemical Weigher Manager Of Network, First Time In 03/21/21 07:28:00 03/21/21 07:35:00 [...] Case Attendee FAITH ESCOBEDO RN Role Performed Manager Of Network, Second Time In 03/21/21 09:04:00 Time Out 03/21/21 09:15:00 Procedure Hip Total Anterior Approach(Right) Other Attendee Superficial Wound Closed By: Last Modified By: KAMERON CORREA RN 03/21/21 09:14:09 [facility] IntraOp Case Attendance Audit 03/21/21 09:14:09 Tank Wagon Operator: LONGGA Modifier: LONGGA 1 <+> Time [...] Procedure Hip Total Anterior Approach(Right) 03/21/21 09:09:17 Tank Wagon Operator: LONGGA Modifier: LONGGA 9 <+> Time Out 9 <*> Procedure Hip Total Anterior Approach(Right) <+> 10 Case Attendee <+> 10 Role Performed <+> 10 Time In <+> 10 Procedure 03/21/21 07:55:56 Tank Wagon Operator: LONGGA Modifier: LONGGA <+> 9 Case Attendee <+> 9 Role Performed <+> 9 Time In <+> 9 Procedure 03/21/21 07:53:41 Tank Wagon Operator: LONGGA Modifier: LONGGA 6 <*> Time In 03/21/21 07:28:00 6 <*> Procedure Hip Total Anterior Approach(Right) 03/21/21 07:53:18 Tank Wagon Operator: LONGGA Modifier: LONGGA <+> 1 Procedure 2 <*> Procedure Hip Total Anterior Approach(Right) 3 <*> Procedure Hip Total Anterior Approach(Right) 4 <*> Procedure Hip Total Anterior Approach(Right) 5 <*> Procedure Hip Total Anterior Approach(Right) 6 <+> Time In 6 <*> Procedure Hip Total Anterior Approach(Right) 7 <*> Procedure Hip Total Anterior Approach(Right) 8 <*> Procedure Hip Total Anterior Approach(Right) 03/21/21 07:43:00 Tank Wagon Operator: LONGGA Modifier: LONGGA <+> 1 Time [...] SJE IntraOp Case Times Audit 03/21/21 09:14:07 Tank Wagon Operator: LONGGA Modifier: LONGGA <+> 1 Out Room Time <+> 1 Stop Time 03/21/21 09:13:29 Tank Wagon Operator: LONGGA Modifier: LONGGA <+> 1 Stop Time 03/21/21 07:53:13 Tank Wagon Operator: LONGGA Modifier: LONGGA <+> 1 Start [...] other Comment PROCEDURE STARTING Communication By KAMERON CORERA RN Date and Time 03/21/21 07:56:00 Last [...] Transport Bed (including Via specialty) Patient Transport SSI SHAH, Accompanied by SUNNY WAGGONER GARY, RN Last Modified By: KAMERON CORREA RN 03/21/21 08:59:05 [facility] IntraOp Dressing and Packing Entry 1 Type Dressing Location RIGHT HIP Tape Type Paper Applied By Mati Fuentes RNFA Other Comments LIZBETH, MEPILEX DRESSING Last Modified By: KAMERON CORREA RN 03/21/21 08:58:36 [facility] IntraOp Dressing and Packing Audit 03/21/21 08:58:36 Tank Wagon Operator: MARY Modifier: GIRISHGA 1 <-> Wound [...] IntraOp Fire Risk Assessment Audit 03/21/21 08:09:15 Tank Wagon Operator: MARY Modifier: LONGGA <+> 1 Fire Risk Assessment Verified By <+> 1 Fire Risk Assessment Verified Date/Time <+> 1 High Risk Protocol Implemented SJ IntraOp General Case Sales Ambassador 1 Case Information OR OR 05 [facility] Case Level 1 Room Verified Yes Wound [...] D HIP STEM ACCOLADE II Identification 48MM [id number] Description Implant Quantity 1 1 1 Implant Site RIGHT HIP RIGHT HIP RIGHT HIP Implant Identification Model Number Implant Identification Serial Number Implant [id number] Identification Lot Number Implant Nikita Ortho Cap Nikita:[place] Nikita:[place] Identification Orthopaedics Orthopaedics Awning Hanger Supervisor Name: Implant [id number] Identification Catalog Number Implant Size Implant Has an Yes Yes Yes Expiration Date Implant Expiration 10/18/25 11/02/25 12/23/25 Date Wasted Radioactive Material Time Implanted Tissue Implant Continue for Tissue Implant Documentation Tissue Identification Number Graft Prep Per Awning Hanger Supervisor Instructions: Tissue Preparation Method: Reconstitution Solution: Reconstitution Solution Lot Number Reconstitution Solution Expiration Date: Thawing Solution Thawing Solution Lot Number Thawing Solution Expiration Date Preparation Materials, Other Preparation Materials, Other Lot Number Preparation Materials, Other Expiration Date Tissue Prepared/Processed By Awning Hanger Supervisor Paperwork Completed Implant Type Comment Last Modified By: KAMERON CORREA RN LONGSWORTH, GARY, RN LONGSWORTH, GARY, RN 03/21/21 08:19:39 03/21/21 08:20:33 03/21/21 08:43:38 Entry 4 Type Implant (Synthetic) Implant Log Implant Type Hardware Tissue Implant Type Implant HEAD FEM BIOLOX V40 Identification [id number] Description Implant Quantity 1 Implant Site RIGHT HIP Implant Identification Model Number Implant Identification Serial Number Implant [id number] Identification Lot Number Implant Nikita:Nikita Identification Orthopaedics Awning Hanger Supervisor Name: Implant [id number] Identification Catalog Number Implant Size Implant Has an Yes Expiration Date Implant Expiration 09/27/25 Date Wasted Radioactive Material Time Implanted Tissue Implant Continue for Tissue Implant Documentation Tissue Identification Number Graft Prep Per Awning Hanger Supervisor Instructions: Tissue Preparation Method: Reconstitution Solution: Reconstitution Solution Lot Number Reconstitution Solution Expiration Date: Thawing Solution Thawing Solution Lot Number Thawing Solution Expiration Date Preparation Materials, Other Preparation Materials, Other Lot Number Preparation Materials, Other Expiration Date Tissue Prepared/Processed By Awning Hanger Supervisor Paperwork Completed Implant Type Comment Last Modified By: KAMERON CORREA RN 03/21/21 08:47:34 SJE IntraOp Implant Log Audit 03/21/21 08:47:34 Tank Wagon Operator: MARY Modifier: MARY <+> 4 Implant Identification Description <+> 4 Implant Identification Lot Number <+> 4 Implant Identification Awning Hanger Supervisor Name: <+> 4 Implant Expiration Date <+> 4 Implant Site <+> 4 Implant Quantity <+> 4 Implant Identification Catalog Number <+> 4 Implant Type <+> 4 Implant Has an Expiration Date <+> 4 Type 03/21/21 08:43:38 Tank Wagon Operator: MARY Modifier: LONGGA <+> 3 Implant Identification Description <+> 3 Implant Identification Lot Number <+> 3 Implant Identification Awning Hanger Supervisor Name: <+> 3 Implant Expiration Date <+> 3 Implant Site <+> 3 Implant Quantity <+> 3 Implant Identification Catalog Number <+> 3 Implant Type <+> 3 Implant Has an Expiration Date <+> 3 Type 03/21/21 08:20:33 Tank Wagon Operator: LONGGA Modifier: LONGGA <+> 2 Implant Identification Description <+> 2 Implant Identification Lot Number <+> 2 Implant Identification Awning Hanger Supervisor Name: <+> 2 Implant Expiration Date <+> [...] 1000units/ml SEALR AQUAMANTYS BIPLR CLONIDINE-10ML 10ml - [id number] Combo Med List 1 - Combo Med Time Administered Route of CELLSAVER CERTIFIED PHARMACY TECHNICIAN INJECTION, RIGHT HIP Administration Dose Dose 09527 0.8 Unit of Measure units ml Volume [...] 0.5% 30ml vial Xylocaine 1% w/ - [id number] epinephrine 1:200,000 30ml vial - [id number] Combo Med List 1 - Combo Med [...] Yes Checked Positioning Devices Arm Board, Table, [place], Safety Strap, Chest Device Position HANA TABLE; PERINEAL POST Positioned By SIS SHAH CRNA-ANS, DARY GAMEZ JR, JR, MD-ORT, KAMERON CORREA, MAGALYS, Mati Fuentes, ENAMEL BUFFER Position Verified Positioning Yes Verified by Anesthesia [...] SJE IntraOp Skin Prep Audit 03/21/21 10:21:05 Tank Wagon Operator: MARY Modifier: LONGGA 1 <*> Prep [...] SJE IntraOp Surgical Procedures Audit 03/21/21 09:13:33 Tank Wagon Operator: LONGGA Modifier: LONGGA <+> 1 Stop SJE IntraOp Temp Regulation Devices Entry 1 Temp Regulation Temperature Conductive warming Regulation Device device placed over patient Temperature 4764 Regulation Device Serial/Unit Number Temperature Upper body Regulation Site Temperature Device 43 Setting Temperature SIS SHAH, Regulation Device VACUUM BOTTLE ASSEMBLER-ANS Applied by Last Modified By: KAMERON CORREA [...] Fluoroscopy Fluoroscopy Type C-Arm Site RIGHT HIP Club Waiter/Waitress Name Sarah Biggs, Resource Manager Protective Devices Yes Used Last Modified By: [...]
--- OUTSIDE RECORDS SUMMARY | 2025-08-09 10:55 | XMS_ITS | Clinical Summary ---
Author Organization [employer] ([place], [place], [place], [place]) Address [address] [place] [address] Care Team Providers Care Ore Puncher Name Role Phone Unavailable Primary Care Provider [...]
--- OUTSIDE RECORDS SUMMARY | 2025-08-09 10:55 | XMS_ITS | Encounter Summary ---
Author Organization [employer] ([place], [place], [place], [place]) Address [address] [place] [address] Care Team Providers Care Film Historian Name Role Phone Unavailable Primary Care Provider Unavailabl e Encounter Details Date Type Department Care Team (Late st Contact Info) Description 03/21/2021 Transcribed Document [facility] [place] Family Medicine [facility] [place] [address] ProviderLibrado MD [address] [place] [address] Social History Tobacco Use Types Packs/Day [...] On: 03/22/2021 9:27 EDT by PABLO ABDALLA, SUPERVISOR BORDER DEPARTMENT General Information, PT Visit Type, PT : [...] PABLO ABDALLA PTA - 03/22/2021 10:05 EDT Residential Goals Other PT LTG Grid Goal #1 [...] EDT 03/22/2021 EDT 03/22/2021 EDT PABLO ABDALLA, SUPERVISOR BORDER DEPARTMENT - 03/22/2021 10:05 EDT RM PABLO Frederick, SUPERVISOR BORDER DEPARTMENT - 03/22/2021 10:05 EDT RM PABLO Frederick, SUPERVISOR BORDER DEPARTMENT - 03/22/2021 10:05 EDT Treatment Note Subjective [...] for Treatment : [place] [facility] [place]. PABLO ABDALLA, BERNARDO - 03/22/2021 10:05 EDT Pain Assessment Pain Scaled Used : 0-10 Pain scale Pain Score Pre-Intervention : 0 PABLO ABDALLA, BERNARDO - 03/22/2021 10:05 EDT Image 1 - Images currently included in the form version of this document have not been included in the text rendition version of the form. [place] PT Charges SUPERVISOR BORDER DEPARTMENT PT Therap. Exercise 15 min-SUPERVISOR BORDER DEPARTMENT : 1 Gait Training Each 15 Min-SUPERVISOR BORDER DEPARTMENT : 1 PABLO ABDALLA, SUPERVISOR BORDER DEPARTMENT - 03/22/2021 10:05 EDT documented in this encounter Plan of Treatment Not on file documented as of this encounter Visit Diagnoses Not on filedocumented in this encounter
--- OUTSIDE RECORDS SUMMARY | 2025-08-09 10:55 | XMS_ITS | Encounter Summary ---
Author Organization [employer] ([place], [place], [place], [place]) Address [address] [place] [address] Care Team Providers Care Work Environment Safety Inspector Name Role Phone Unavailable Primary Care Provider Unavailabl e Encounter Details Date Type Department Care Team (Late st Contact Info) Description 03/21/2021 Transcribed Document [facility] [place] Family Medicine [facility] [address] ProviderLibrado MD [address] [place] [address] Social History Tobacco Use Types [...] Oral, Q4H phenol 1.4% throat spray 5 Red [place], Oral, Q2H promethazine 25 mg tab 12.5 [...] HTN, heart disease Procedure history: tubal. Appendectomy; (79640). trigger finger. arthroscopy both knees. left total knee with Titanium. right CTR. cysto lithotripsy. several hammertoe/bunion surgeries. right wrist joint fusion. facet injects and rhizotomy. heart cath and lexiscan stress test 2010. retina; vein injections monthly. RTKA with Titanium. Colonoscopy (809314239). Cystoscopy (88317920). Bilateral Cataract Removal with IOL Implants. Lithotripsy (147531534). Social History Patient is and has no children, she quit [employer] on 01/10/1993.Denies drinking alcohol. Physical Examination VS/Measurements [...] swelling, No deformity, Normal gait. Integumentary: Warm, [place], Intact, No pallor, No rash, WOUND STABLE. [...] then you may give Tylenol 650 mg PO/SC x 1. If no response in 2 [...]
--- OUTSIDE RECORDS SUMMARY | 2025-08-09 10:55 | XMS_ITS | Encounter Summary ---
Author Organization [employer] ([place], [place], [place], [place]) Address [address] [place] [address] Care Team Providers Care Registered Dietetic Technician Name Role Phone Unavailable Primary Care Provider Unavailabl e Encounter Details Date Type Department Care Team (Late st Contact Info) Description 03/21/2021 Transcribed Document [facility] [place] Family Medicine [address] [place] [address] ProviderLibrado MD [address] [place], [place] [id number] Social History Tobacco Use Types Packs/Day Years [...]
--- OUTSIDE RECORDS SUMMARY | 2025-08-09 10:55 | XMS_ITS | Encounter Summary ---
Author Organization [employer] ([place], [place], [place], [place]) Address [address] [place] [address] Care Team Providers Care Mail Messenger Contractor Name Role Phone Unavailable Primary Care Provider Unavailabl e Encounter Details Date Type Department Care Team (Late st Contact Info) Description 03/22/2021 Transcribed Document [facility] [place] Family Medicine [address] [place] [address] ProviderLibrado MD [address] [place] [address] Social History Tobacco Use Types [...] EDT Chloraseptic Menthol 1.4% topical spray: 5 [place], Oral, [place], Q2H, PRN for Sore Throat, Routine, Start [...] constipation, # 60 Tab, 0 Refill(s), Pharmacy: [facility], 170.18, cm, 03/21/21 10:42:00 EDT, [...] Oral, Q4H phenol 1.4% throat spray 5 [place], Oral, Q2H promethazine 25 mg tab 12.5 [...] constipation, # 60 Tab, 0 Refill(s), Pharmacy: [facility], 170.18, cm, 03/21/21 10:42:00 EDT, [...]
--- OUTSIDE RECORDS SUMMARY | 2025-08-09 10:55 | XMS_ITS | Encounter Summary ---
Author Organization [employer] ([place], [place], [place], [place]) Address [address] [place] [address] Care Team Providers Care Out Of Town Collection Clerk Name Role Phone Unavailable Primary Care Provider Unavailabl e Encounter Details Date Type Department Care Team (Late st Contact Info) Description 03/21/2021 Transcribed Document [facility] [place] [place] [facility] [place] [address] ProviderLibrado MD [address] [place] [address] Social History Tobacco Use Types Packs/Day [...] COMPONENTS USED: Size 48 press-fit acetabular component [place] with a neutral poly liner to accept [...] the recovery room. Final condition was improved. /[id number] MD SIMIN Infante Jr/SHOBHA / SIMIN / MODL /[id number] documented in this encounter Plan of Treatment Not on file documented as of this encounter Visit Diagnoses Not on filedocumented in this encounter
--- OUTSIDE RECORDS SUMMARY | 2025-08-09 10:55 | XMS_ITS | Encounter Summary ---
Author Organization [employer] ([place], [place], [place], [place]) Address [address] [place] [address] Care Team Providers Care Geriatric Care Manager Name Role Phone Unavailable Primary Care Provider Unavailabl e Encounter Details Date Type Department Care Team (Late st Contact Info) Description 03/21/2021 Transcribed Document [facility] [place] [facility] [place] [address] ProviderLibrado MD [address] [place] [address] Social History Tobacco Use Types Packs/Day [...] ARI LOU OTR/[place] - 03/21/2021 11:45 EDT Supervisor Contact And Service Clerks Goals, OT Other LTG Grid Goal #1 [...] - 03/21/2021 11:45 EDT Electronically signed by Ciro Dobbs Conversion Bulk Materials Handling Plant Operator Cerner at 03/21/2023 1:04 PM CDT documented in this encounter Plan of Treatment Not on file documented as of this encounter Visit Diagnoses Not on filedocumented in this encounter
--- OUTSIDE RECORDS SUMMARY | 2025-08-09 10:55 | XMS_ITS | Referral Summary ---
Author Organization [employer] ([place], [place], [place], [place]) Address [address] [place] [address] Care Team Providers Care Entertainment Centre Manager Name Role Phone Unavailable Primary Care [...]
--- OUTSIDE RECORDS SUMMARY | 2025-08-09 10:55 | XMS_ITS | Encounter Summary ---
Author Organization [employer] ([place], [place], [place], [place]) Address [address] [place] [address] Care Team Providers Care Dinkey Driver Name Role Phone Unavailable Primary Care Provider Unavailabl e Encounter Details Date Type Department Care Team (Late st Contact Info) Description 03/21/2021 Transcribed Document [facility] [place] Family Medicine [address] [place] [address] ProviderLibrado MD [address] [place] [address] Social History Tobacco Use Types [...] EDT Electronically signed by Kristina Dobbs Conversion Trimmer And Borer Machine Operator Cerner at 03/21/2023 1:04 PM CDT documented in this encounter Plan of Treatment Not on file documented as of this encounter Visit Diagnoses Not on filedocumented in this encounter
--- OUTSIDE RECORDS SUMMARY | 2025-08-09 10:55 | XMS_ITS | Encounter Summary ---
Author Organization [employer] ([place], [place], [place], [place]) Address [address] [place] [address] Care Team Providers Care Support Technician Name Role Phone Unavailable Primary Care Provider Unavailabl e Encounter Details Date Type Department Care Team (Late st Contact Info) Description 03/22/2021 Transcribed Document [facility] [place] Family Medicine [address] [place] [address] ProviderLibrado MD [address] [place], [place] [address] Social History Tobacco Use Types Packs/Day Years [...]
--- OUTSIDE RECORDS SUMMARY | 2025-08-09 10:55 | XMS_ITS | Encounter Summary ---
Author Organization [employer] ([place], [place], [place], [place]) Address [address] [place] [address] Care Team Providers Care Tumbler Machine Operator Name Role Phone Unavailable Primary Care Provider Unavailabl e Encounter Details Date Type Department Care Team (Late st Contact Info) Description 03/22/2021 Transcribed Document [facility] [place] [facility] [place] [address] ProviderLibrado MD [address] [place] [address] Social History Tobacco Use Types [...] Policy Numbers : Insurance 1 Health Plan: [employer] [facility] Policy Number: [id number] Authorization Number: [id number] Insurance Primary Name : [facility] Policy Number: [id number] Authorization Status-Primary : Opo status approv Authorized Service Begin Date-Primary : 03/21/2021 EDT Observation Authorization Nbr-Primary : [id number] Authorization Comments-Primary : [facility] auth approved for outpt per Star note Historical Authorization Comments-Primary : No Authorization Comments Found CONRAD COWAN RN-Utilization Review - 03/22/2021 8:25 EDT documented in this encounter Plan of Treatment Not on file documented as of this encounter Visit Diagnoses Not on filedocumented in this encounter
--- OUTSIDE RECORDS SUMMARY | 2025-08-09 10:55 | XMS_ITS | Encounter Summary ---
Author Organization [employer] ([place], [place], [place], [place]) Address [address] [place] [address] Care Team Providers Care Hospital Personnel Director Name Role Phone Unavailable Primary Care Provider Unavailabl e Encounter Details Date Type Department Care Team (Late st Contact Info) Description 03/21/2021 Transcribed Document [facility] [place] Family [place] [address] ProviderLibrado MD [address] [place] [address] Social History Tobacco Use Types Packs/Day [...] Low Spiritual Framework : Integrated, provides strength/resource Episcopal Preference : Yazdanism DAYNA OCONNOR Chaplain-Non Cert - 03/21/2021 7:29 EDT documented in this encounter Plan of Treatment Not on file documented as of this encounter Visit Diagnoses Not on filedocumented in this encounter
--- OUTSIDE RECORDS SUMMARY | 2025-08-09 10:56 | XMS_ITS | Encounter Summary ---
Author Organization [employer] ([place], [place], [place], [place]) Address [address] [place] [address] Care Team Providers Care Top Loader Name Role Phone Unavailable Primary Care Provider Unavailabl e Encounter Details Date Type Department Care Team (Late st Contact Info) Description 01/25/2021 Transcribed Document [facility] [place] Medicine [facility] include [facility] beds at [facility] [place] [address] ProviderLibrado MD [address] [place] [address] Social History Tobacco Use Types Packs/Day Years Used Date Smoking Tobacco: Never Assessed Comments Unknown Sex and Gender Information Value Date Recorded Sex Assigned at Not on file Legal Sex Female 1:10 PM CDT Gender Identity Not on file Sexual Orientation Not on file documented as of this encounter Miscellaneous Notes * Cerner Conversion Note - Librado ProviderMD - 01/25/2021 11:00 AM CARTON STENCILER Patient: JOIE TAVARES Age: 60 Years Sex: [...] in the past. Pt has a h/o YOAAN and wears CPAP. No COPD or YOANA. [...] Lymph # 2.13 K/uL 01/25/2021 11:44 EST [place] % 7.4 % 01/25/2021 11:44 EST [place] # 0.57 K/uL 01/25/2021 11:44 EST Eos [...] CLOUDY2 (Abnormal) 01/25/2021 11:44 EST Urine Specific [place] 1.024 01/25/2021 11:44 EST Urine pH Dipstick [...] Indicated 01/25/2021 11:44 EST Electronically signed by [facility] Conversion Supervisor Tank Cleaning Cerner at 03/21/2023 1:13 PM CDT documented in this encounter Plan of Treatment Not on file documented as of this encounter Visit Diagnoses Not on filedocumented in this encounter
--- OUTSIDE RECORDS SUMMARY | 2025-08-09 10:56 | XMS_ITS | Encounter Summary ---
Author Organization [employer] ([place], [place], [place], [place]) Address [address] [place] [address] Care Team Providers Care Superior Court Justice Name Role Phone Unavailable Primary Care Provider Unavailabl e Encounter Details Date Type Department Care Team (Late st Contact Info) Description 03/22/2021 Transcribed Document [facility] [place] [facility] [address] ProviderLibrado MD [address] [place] [address] Social History Tobacco Use Types [...] Librado ProviderMD - 03/22/2021 12:19 PM CDT [place] [id number] JOIE HAQ :1960 Visit Time:03/21/2021 Your Visit [...] Instructions From Your Care Team Community Services: [facility] Physical Therapy Home Health Services: [facility] Medical Equipment for Home Use: Patient has [...] When 04/03/2021 09:15 AM EDT Where: [address] [facility] [address] [place] [address]- Medications What How Much When Instructions Next [...] as needed for for constipation Pickup at [facility] as needed oxyCODONE (oxyCODONE 5 mg [...] for migraine headache as needed Pharmacy Information [facility]: [address] [place] [address] [phone] Take your medications faithfully. Do NOT skip [...] Barley. Bulgur wheat. Millet. Bran muffins. Popcorn. [place] wafer crackers. ??? Vegetables Sweet potatoes. Spinach. Kale. Artichokes. Cabbage. Broccoli. Green peas. Carrots. Squash. ??? Fruits Berries. Pears. Apples. Oranges. Avocados. Prunes and raisins. Dried figs. ??? Meats and Other Protein Sources [place], kidney, romero, and soy beans. Split peas. [...] humza has 11 g of protein. ??? [place] seeds ??? 1 oz has 5.5 g [...] floor. ??? Place frequently used items in kjzs-ye-jbtwe places ??? Keep electrical cables out of [...] ? Using the bathroom. ? Using household supervisor frame sample and pattern or toxic chemicals. ? Touching or taking [...] and need to call 911, notify the concrete pump operator helper that you have, or think you might [...] clean your hands with an alcohol-based hand maintenance of way supervisor that contains at least 60% alcohol. Clean your hands often. ??? Wash hands: Wash your hands often with soap and water for at least 20 seconds when visibly dirty. This is especially important after blowing your nose, coughing or sneezing, and going to the bathroom, and before eating or preparing food. ??? Hand maintenance of way supervisor: Use an alcohol-based hand maintenance of way supervisor with at least 60% alcohol, covering [...] and water or put them in the surgical supply assistant. Clean all high-touch surfaces every day. [...] or body fluids on them. ??? Household supervisor frame sample and pattern and disinfectants: Clean the area or item [...] list of disinfectants can be found here: https://www.epa.gov/pesticide-registration/rfmh-z-qatzhemupfslm-cac-qnyaugb-lx rs-cov-2 ondansetron (oral) (on ELAINA se rc) [...] may report side effects to FDA at 6-765-KRR-4728. What other drugs will affect ondansetron? Ondansetron [...] interact with ondansetron. This includes prescription and pvyf-avd-zkfnimd medicines, vitamins, and herbal products. Give a [...] to ensure that the information provided by [employer]. ('Multum') is accurate, up-to-date, and complete, but no guarantee is made to that effect. Drug information contained herein may be time sensitive. Opp[employer] information has been compiled for use by healthcare practitioners and consumers in the [place] and therefore [employer] does not warrant that uses outside of the [place] are appropriate, unless specifically indicated otherwise. Puralyticss drug information does not endorse drugs, diagnose patients or recommend therapy. [employer] drug information is an informational resource designed [...] effective or appropriate for any given patient. [employer] does not assume any responsibility for any aspect of healthcare administered with the aid of information Opp[employer] provides. The information contained herein is not intended to cover all possible uses, directions, precautions, warnings, drug interactions, allergic reactions, or adverse effects. If you have questions about the drugs you are taking, check with your doctor, nurse or pharmacist. Copyright 3956-4385 [employer]. Version: 13.01. Revision Date: 09/20/2016. cephalexin (sef [...] may report side effects to FDA at 5-607-KQA-8593. What other drugs will affect cephalexin? Tell your doctor about all your other medicines, especially: ?? metformin; or ?? probenecid. This list is not complete. Other drugs may affect cephalexin, including prescription and mazk-pjm-muzixsm medicines, vitamins, and herbal products. Not all [...] to ensure that the information provided by [employer]. ('Multum') is accurate, up-to-date, and complete, but no guarantee is made to that effect. Drug information contained herein may be time sensitive. Opp[employer]io information has been compiled for use by healthcare practitioners and consumers in the [place] and therefore [employer] does not warrant that uses outside of the [place] are appropriate, unless specifically indicated otherwise. Puralyticss drug information does not endorse drugs, diagnose patients or recommend therapy. Puralyticss drug information is an informational resource designed [...] effective or appropriate for any given patient. [facility] does not assume any responsibility for any aspect of healthcare administered with the aid of information [facility] provides. The information contained herein is not intended to cover all possible uses, directions, precautions, warnings, drug interactions, allergic reactions, or adverse effects. If you have questions about the drugs you are taking, check with your doctor, nurse or pharmacist. Copyright 5787-7240 [facility].PSE[facility]. Version: 10.03. Revision Date: 12/04/2020. acetaminophen (oral) (a SEET a MIN oh fen) Actamin, Anacin AF, Aurophen, Bromo Harvard, Children's Tylenol, Mapap, M-Pap, Pharbetol, Silapap Childrens, [...] is a pain reliever and a fever sporting goods salesperson. There are many brands and forms of [...] may report side effects to FDA at 1-694-CUE-6024. What other drugs will affect acetaminophen? Other drugs may affect acetaminophen, including prescription and yeqq-bac-ebfxebq medicines, vitamins, and herbal products. Tell your [...] to ensure that the information provided by [employer]. ('Multum') is accurate, up-to-date, and complete, but no guarantee is made to that effect. Drug information contained herein may be time sensitive. Opp[employer]io information has been compiled for use by healthcare practitioners and consumers in the [place] and therefore [employer] does not warrant that uses outside of the [place] are appropriate, unless specifically indicated otherwise. Puralyticss drug information does not endorse drugs, diagnose patients or recommend therapy. P[employer]yticss drug information is an informational resource designed [...] effective or appropriate for any given patient. [employer] does not assume any responsibility for any aspect of healthcare administered with the aid of information [employer] provides. The information contained herein is not intended to cover all possible uses, directions, precautions, warnings, drug interactions, allergic reactions, or adverse effects. If you have questions about the drugs you are taking, check with your doctor, nurse or pharmacist. Copyright 3165-4995 [employer]. Version: 21.04. Revision Date: 07/07/2020. meloxicam (oral/injection) [...] may report side effects to FDA at 7-337-WQY-3522. What other drugs will affect meloxicam? Ask [...] drugs may affect meloxicam, including prescription and nnux-kle-fnhhfjn medicines, vitamins, and herbal products. Not all [...] to ensure that the information provided by [employer]. ('Multum') is accurate, up-to-date, and complete, but no guarantee is made to that effect. Drug information contained herein may be time sensitive. Opp[employer]io information has been compiled for use by healthcare practitioners and consumers in the [place] and therefore [employer] does not warrant that uses outside of the [place] are appropriate, unless specifically indicated otherwise. Puralyticss drug information does not endorse drugs, diagnose patients or recommend therapy. [employer]ream drug information is an informational resource designed [...] effective or appropriate for any given patient. [employer] does not assume any responsibility for any aspect of healthcare administered with the aid of information [employer] provides. The information contained herein is not intended to cover all possible uses, directions, precautions, warnings, drug interactions, allergic reactions, or adverse effects. If you have questions about the drugs you are taking, check with your doctor, nurse or pharmacist. Copyright 4445-8273 [employer]. Version: 14.. Revision Date: 10/03/2020. docusate (oral/rectal) [...]
--- OUTSIDE RECORDS SUMMARY | 2025-08-09 10:56 | XMS_ITS | Encounter Summary ---
Author Organization [employer] ([place], [place], [place], [place]) Address [address] [place] [address] Care Team Providers Care Gyroscopic Instrument Tester Name Role Phone Unavailable Primary Care Provider Unavailabl e Encounter Details Date Type Department Care Team (Late st Contact Info) Description 03/08/2021 Transcribed Document [facility] [place] Family Medicine [place] [address] ProviderLibrado MD [address] [place] [address] Social History Tobacco Use Types Packs/Day [...] Appearance CLEAR2 03/08/2021 09:44 EDT Urine Specific [place] 1.012 03/08/2021 09:44 EDT Urine pH Dipstick [...]
--- OUTSIDE RECORDS SUMMARY | 2025-08-09 10:56 | XMS_ITS | Encounter Summary ---
Author Organization [employer] ([place], [place], [place], [place]) Address [address] [place] [address] Care Team Providers Care Studio Assistant Name Role Phone Unavailable Primary Care Provider Unavailabl e Encounter Details Date Type Department Care Team (Late st Contact Info) Description 03/22/2021 Transcribed Document [facility] [place] [facility] [place] [address] ProviderLibrado MD [address] [place] [address] Social History Tobacco Use Types [...] EDT Electronically signed by Kristina Dobbs Conversion Green Energy Marketing Analyst Cerner at 03/21/2023 1:12 PM CDT documented in this encounter Plan of Treatment Not on file documented as of this encounter Visit Diagnoses Not on filedocumented in this encounter
--- OUTSIDE RECORDS SUMMARY | 2025-08-09 10:56 | XMS_ITS | Encounter Summary ---
Author Organization [employer] ([place], [place], [place], [place]) Address [address] [place] [address] Care Team Providers Care Kier Drier Name Role Phone Unavailable Primary Care Provider Unavailabl e Encounter Details Date Type Department Care Team (Late st Contact Info) Description 03/22/2021 Transcribed Document [facility] [place] Family Medicine [facility] [place] [address] ProviderLibrado MD [address] [place] [address] Social History Tobacco Use Types [...]
--- OUTSIDE RECORDS SUMMARY | 2025-08-09 10:56 | XMS_ITS | Encounter Summary ---
Author Organization [employer] ([place], [place], [place], [place]) Address [address] [place] [address] Care Team Providers Care Social Media Community Manager Name Role Phone Unavailable Primary Care Provider Unavailabl e Encounter Details Date Type Department Care Team (Late st Contact Info) Description 03/22/2021 Transcribed Document [facility] [place] Family Medicine [facility] [address] ProviderLibrado MD [address] [place] [address] Social History Tobacco Use Types Packs/Day [...] : Sandip Tavares Emergency Contact #1 or [phone] Emergency Contact #1 Relationship : Spouse Emergency [...] with Patient : Discharge transportation, DME LASHAE LUOG RN - 03/22/2021 11:21 EDT Narrative Note Narrative Note : 60 y/o female s/p RATH per Dr. Gallegos. Met patient and at bedside to discuss discharge needs. RRS: low 30 BOOST:3 STATUS: patient lives with her is iADLS. PLAN: Home with and choose [facility]. Referral sent via Norberto. patient also choose [facility] for her outpatient PT. DME: [...]
--- OUTSIDE RECORDS SUMMARY | 2025-08-09 10:56 | XMS_ITS | Encounter Summary ---
Author Organization [employer] ([place], [place], [place], [place]) Address [address] [place] [address] Care Team Providers Care Optical Instrument Inspector Name Role Phone Unavailable Primary Care Provider Unavailabl e Encounter Details Date Type Department Care Team (Late st Contact Info) Description 03/22/2021 Transcribed Document [facility] [place] [facility] [place] [address] ProviderLibrado MD [facility] [place] [address] Social History Tobacco Use [...] RWx SBA, safely ascended/descended 4 steps using ORIENTATION AND MOBILITY INSTRUCTOR/CGA, safely ascended/descended 1 platform step with RWx CGA, and participated with LE exercises. Patient would continue to benefit from further skilled PT services to improve LE strength, gait mechanics, and functional mobility to maximize recovery from right anterior SALUD. I agree with above D/C summary. Bonnie Manuel, PT LYLE AYLIN B., PT - 03/22/2021 16:12 EDT [facility] Goals Other PT LTG Grid Goal #1 [...] EDT 03/22/2021 EDT 03/22/2021 EDT PABLO ABDALLA, HYDROSTATIC TESTER - 03/22/2021 15:58 EDT PABLO ABDALLA, HYDROSTATIC TESTER - 03/22/2021 15:58 EDT PABLO ABDALLA, HYDROSTATIC TESTER - 03/22/2021 15:58 EDT documented in this encounter Plan of Treatment Not on file documented as of this encounter Visit Diagnoses Not on filedocumented in this encounter
--- OUTSIDE RECORDS SUMMARY | 2025-08-09 10:56 | XMS_ITS | Encounter Summary ---
Author Organization [employer] ([place], [place], [place], [place]) Address [address] [place] [address] Care Team Providers Care Pipe Line Walker Name Role Phone Unavailable Primary Care Provider Unavailabl e Encounter Details Date Type Department Care Team (Late st Contact Info) Description 03/22/2021 Transcribed Document [facility] [place] Family Medicine [address] [place] [address] ProviderLibrado MD [address] [place] [address] Social History Tobacco Use Types [...] Historical ProviderMD - 03/22/2021 2:[address] Hogger Operator Details Entered On: 03/22/2021 1:18 EDT [...]
--- OUTSIDE RECORDS SUMMARY | 2025-08-09 10:56 | XMS_ITS | Encounter Summary ---
Author Organization [employer] ([place], [place], [place], [place]) Address [address] [place] [address] Care Team Providers Care Forest Law And Policy Professor Name Role Phone Unavailable Primary Care Provider Unavailabl e Encounter Details Date Type Department Care Team (Late st Contact Info) Description 03/08/2021 Transcribed Document [facility] [place] [facility] [place] [address] ProviderLibrado MD [facility] [place] [address] Social History Tobacco Use Types [...] EDT Electronically signed by Kristina Dobbs Conversion Military Administrative Technician Cerner at 03/21/2023 1:20 PM CDT documented in this encounter Plan of Treatment Not on file documented as of this encounter Visit Diagnoses Not on filedocumented in this encounter
--- OUTSIDE RECORDS SUMMARY | 2025-08-09 10:56 | XMS_ITS | Encounter Summary ---
Author Organization [employer] ([place], [place], [place], [place]) Address [address] [place] [address] Care Team Providers Care Flask Pusher Name Role Phone Unavailable Primary Care Provider Unavailabl e Encounter Details Date Type Department Care Team (Late st Contact Info) Description 03/22/2021 Transcribed Document [facility] [place] [facility] [place] [address] ProviderLibrado MD [address] [place] [address] Social History Tobacco Use Types Packs/Day [...] Address: Phone Number: Home Care Physician Services [address], [place], [address] Discharge Options Discussed with Patient [...] Referral sent via Norberto. patient also choose [facility] for her outpatient PT. DME: [...]
== END 2025-08-08 23:59 ==
LOC: LAB.DROPOF 08-09 10:43
PROVIDERS: PCP Podiatrist; Visit Provider Podiatrist
DX: S91.302A Unspecified open wound, left foot, initial encounter (principal); Z98.890 Other specified postprocedural states
CPT/HCPCS: 87070; 87205

== ENCOUNTER 2025-08-17 07:49 | Day surgery (SDC) | payer BC, SELFPAY ==
[2025-08-17 08:07] VITALS: BP 130/89; PULSE 77; RESP 18; TEMP 36.6; O2SAT 95
[2025-08-17 08:59] VITALS: BMI 31.3
[2025-08-17 09:37] VITALS: BP 139/70; PULSE 75; RESP 18; TEMP 36.5; O2SAT 97
--- NOTE | 2025-08-17 09:38 | P.OP_ITS ---
Date of procedure: 08/17/25 Pre-op Diagnosis:: Left foot surgical wound Left venous stasis ulcer B/L venous insufficiency RA Post-op Diagnosis:: Same Procedure performed:: Apligraf [facility] code [id number] Application of skin graft substitute leg ([id number]) Surgical prep of skin graft recipient site (13406) Wound debridement (70789) Application of wound vac (68473) Open bone biopsy Surgeon:: Mony Peterson DPM Anesthesia: none Estimated blood loss (mL): 2 Clinical Note:: Pre-Op indications: Patient is a 64-year-old female with a left foot surgical wound/venous statsis ulcer. Patient has failed conservative treatment, including multiple debridements, various wound dressings, antibiotics, immobilization, wound vac therapy. Patient has seen both [facility] wound care clinic and [facility] (patient unable to tolerate HBOT chamber). Patient had recent CT left foot which showed suspected osteomyelitis. She has surgery 06/16/25 for bone biopsy, wound debridemet, wound vac application. She has had several rounds of oral antibiotics: Cipro, Levo, Doxy, topical gentamicin. Referral for Infectious Disease made, made on culture results. Recommended PICC, IV Vanco. She had surgery for wound debridement, Organogenesis Apligraf application #1 on 06/29/25 and clary #2 on 07/06/25, clary #3 on 07/13/25, clary #4 on 07/20/25 and clary #5 on 07/27/25. Insurance did approve 5 more grafts. We discussed staged graft application surgery. All risks and benefits were discussed including but not limited to: damage to blood vessels and nerves, bleeding, infection, wound complications, need for further surgery, implant/graft failure, need for removal of implant/graft, allergic reaction, prolonged or permanent swelling of the extremity, prolonged or permanent pain or deformity, temporary or permanent toe angulation/deformity, CRPS/RSD, DVT/PE, and anesthetic complications including anaphylaxis or . Patient understands if wound/graft gets infected, it could lead to prolonged oral or IV antibiotics or increased risk of worsening osteomyelitis, which could lead to possible loss of partial foot or even BKA. No guarantees were given. All questions fully answered. The patient verbalized understanding and agreed to proceed with surgery. Verbal and written consent was obtained. ? Operative findings:: 08/15/25: Left foot open wound. 1st MTPJ incision has less edema and no erythema. Proximal wound has healed. Some excoriation secondary to itching to the dorsal lateral foot noted. Overall medial wound looks stable with no new drainage today. No malodor or ascending cellulitis. Hallux is angulated medially. Once again there is exposed bone with exposed plate and screw in the distal wound at the proximal phalanx level. The plate/hardware was still visible but intact with no signs of screw loosening or backing out from the plate. Due to the time wound has been open and hardware has been exposed, decision made to perform an open bone biopsy to reevaluate for osteomyelitis. A piece of the phalanx was sent for bone culture/pathology. Bone was yellowish-white color and soft but no purulence or malodor noted. Sharp excisional full thickness wound debridement with 15' blade/curette thru skin into subq into deep fascia into/including bone. Post debridement: Left medial foot wound: 100% granular, 1.3 x 1.0 x 0.5cm. There was 1.1 x 0.8cm exposed hardware. Minimal bleeding with debridement. Operative note:: On this date and time patient was deemed an appropriate surgical candidate. With informed consent signed, the patient was taken to the local procedure operating theater room. The patient was positioned supine. No anesthesia was induced. No tourniquet used. Left lower extremity was prepped and draped in normal sterile fashion. 1g IM Rocephin. Left medial dorsal foot wound debridement, bone biopsy: Sharp excisional full- thickness debridement with 15 blade, curette down through skin layer, subcutaneous tissue, deep fascia into/including phalanx bone. Proximal phalanx bone was more covered with exposed plate and distal screw. No purulence or SOI noted. Due to time wound has been exposed and history of osteomyelitis, decision made to perform open biopsy. A piece of the phalanx bone was removed and sent as bone culture and pathology. The skin edges were debrided with 15' blade, minimal bleeding noted. The wound was flushed with gentamicin irrigation. Skin cleansed with saline. Mastisol applied around the wound edges. Left foot application of Apligraf (Organogenesis wound graft): Farzana collagen was placed directly over the exposed plate within the wound bed. Graft was prepared in standard fashion. Graft was cut and placed over the wound and circumferentially around on the irritated excoriated skin. The entire graft (44sq cm) was not utilized (only 38sq cm used, 6cm waste). The graft was placed over the open wound including the collagen and rest of the wound bed (and circumferentially around the surrounding skin as the graft was larger than the wound) and secured with Steri-Strips. Adaptic was applied over the graft. Application of wound vac: Black foam cut to size and applied over adaptic. A [employer] medical wound VAC was applied in standard technique at 135 mmHg medium continuous pressure. A gauze, Shaan were applied to left foot. The patient tolerated the procedure well, without complications. Materials: Organogenesis Aligraf wound graft x1 (44sq cm: please note only 38sq cm used, 6cm waste), [employer] wound vac, Promogran Farzana collagen x1 (4.34sq ) Discharge/Plan: Draw labs: cbc, cmp, esr, crp prior to discharge. Ok to discharge home when ready and vss. Patient is to maintain dressing clean dry and intact. Elevate on two pillows. Minimize weight bearing. Ideally PWB to heel in fracture boot/post op shoe with walker. Follow up on Fri08/19/25 with [facility] for vac change and Podiatry 08/22/25 for wound re-evaluation. Discussed with patient depending on results of the labs, may need to follow-up with infectious disease versus more oral or IV antibiotics via PICC line. Await labs and final bone culture/bone biopsy results prior to that decision. Plan for staged surgery for Wedn 08/24/25 for left foot wound debridement, application of wound graft, possible application of wound VAC. Condition: stable Disposition: same day Specimens:: Left 1st MTPJ bone/wound culture Left 1st MTPJ bone/wound path Complications:: None
[2025-08-17 09:44] LABS: Hematocrit 43.0 % (37.0-47.0); Hemoglobin 14.5 g/dL (12.2-16.2); Immature Granulocytes % 0.3 %; Mean Corpuscular HGB Conc 33.7 g/dL (31.8-35.4); Mean Corpuscular Hemoglobin 31.4 pg (27.0-31.2); Mean Corpuscular Volume 93.1 fl (81-99); Nucleated Red Blood Cells % 0 %; Platelet Count 229 K/mm3 (142-424); Red Blood Count 4.62 M/mm3 (4.20-5.40); Red Cell Distribution Width-SD 47.0 fL; White Blood Count 9.7 K/mm3 (4.8-10.8)
[2025-08-17 09:50] LABS: Chloride 108 mmol/L (98-107)
[2025-08-17 09:51] LABS: Albumin Level 3.8 g/dl (3.5-5.0); Potassium 3.9 mmoL/L (3.5-5.1); Sodium 139 mmol/L (136-145)
[2025-08-17 09:53] LABS: Blood Urea Nitrogen 31 mg/dl (7-17); Creatinine Clearance Estimated 82 mL/min (50-200); Creatinine,Serum 0.90 mg/dl (0.52-1.04); Estimated Glomerular Filt Rate 63 ml/min (>60); GFR (African American) 77 ML/MIN (>60)
[2025-08-17 09:54] LABS: Alanine Aminotransferase 45 U/L (12-78); Albumin/Globulin Ratio 1.6 (1.1-1.8); Alkaline Phosphatase 115 U/L (38-126); Anion Gap 8.9 mEq/L (5-15); Aspartate Amino Transferase 34 U/L (14-36); Bilirubin,Total 0.6 mg/dl (0.2-1.3); Calcium 8.8 mg/dl (8.4-10.2); Carbon Dioxide 26 mmol/L (22.0-30.0); Globulin 2.4 g/dL (1.3-3.2); Glucose 97 mg/dl (74-100); Total Protein,Serum 6.2 g/dl (6.3-8.2)
[2025-08-17] MEDS: GENTAMICIN 80 MG/2 ML VIAL (09:54)
[2025-08-17 10:32] LABS: C-Reactive Protein 3.7 mg/L (0-4)
== END 2025-08-17 09:35 | disposition home or self-care (01) ==
PROVIDERS: PCP Nurse Practitioner; Visit Provider Podiatrist
PROC: (CPT 15275; principal; 2025-08-17 08:45)
DX: M86.172 Other acute osteomyelitis, left ankle and foot (principal); M06.9 Rheumatoid arthritis, unspecified; G47.33 Obstructive sleep apnea (adult) (pediatric); M79.7 Fibromyalgia; I10 Essential (primary) hypertension; E66.9 Obesity, unspecified; Z68.31 Body mass index [BMI] 31.0-31.9, adult; Z88.8 Allergy status to other drugs, medicaments and biological substances; Z88.6 Allergy status to analgesic agent; Z88.3 Allergy status to other anti-infective agents; Z91.040 Latex allergy status; Z88.5 Allergy status to narcotic agent; Z91.010 Allergy to peanuts; Z79.899 Other long term (current) drug therapy; Z79.51 Long term (current) use of inhaled steroids
CPT/HCPCS: 15275; 15276; 20240; 36415; 80053; 85025; 85651; 86140; 88304; J1580; Q4101

== ENCOUNTER 2025-08-24 08:01 | Day surgery (SDC) | payer BC, SELFPAY ==
[2025-08-24 08:25] VITALS: BMI 31.3
[2025-08-24 08:29] VITALS: BP 112/69; PULSE 73; RESP 18; TEMP 36.7; O2SAT 98
[2025-08-24 09:16] VITALS: BP 105/88; PULSE 58; RESP 17; TEMP 36.1; O2SAT 97
--- NOTE | 2025-08-24 09:22 | EXP.OP.NOTE ---
Date of procedure: 08/24/25 Pre-op Diagnosis:: Left foot surgical wound Left venous stasis ulcer B/L venous insufficiency RA Post-op Diagnosis:: Same Procedure performed:: [facility] Application of skin graft substitute leg ([id number]) Surgical prep of skin graft recipient site (32504) Wound debridement (15079) Application on wound vac (56699) Surgeon:: Mony Peterson DPM Anesthesia: none Estimated blood loss (mL): 1 Clinical Note:: Patient is a 64-year-old female with a left foot surgical wound/venous statsis ulcer. Patient has failed conservative treatment, including multiple debridements, various wound dressings, antibiotics, immobilization, wound vac therapy. Patient has seen both [facility] wound care clinic and [facility] (patient unable to tolerate HBOT chamber). Patient had recent CT left foot which showed suspected osteomyelitis. She had surgery 06/16/25 for bone biopsy, wound debridemet, wound vac application. She has had several rounds of oral antibiotics: Cipro, Levo, Doxy, topical gentamicin. Referral for Infectious Disease made, made on culture results. Recommended PICC, IV Vanco. She had surgery for wound debridement, Organogenesis Apligraf application #1 on 06/29/25 and clary #2 on 07/06/25, clary #3 on 07/13/25, clary #4 on 07/20/25 and clary #5 on 07/27/25. Insurance did approve 5 more grafts. She has surgery 08/17/25 for bone biopsy, wound debridemet, wound graft application #6. The bone path showed positive acute osteomyelitis with reactive bone but bone culture had no growth. I explained this could be bc of prior IV/oral antibiotic therapy, low bacterial count/load, or inflammatory arthritis. Discussed options for treatment of OM including continued wound care/wound debridements, oral/IV antibiotics, referral back to infectious disease, HBOT, amputation. Patient understands the risks and would like to avoid PICC, IV antibiotics and is unable to do HBOT due to claustrophobia and time commitment. We discussed staged graft application surgery. Planning for surgery for wound debridement, Organogenesis Apligraf application #7 on 08/24/25. All risks and benefits were discussed including but not limited to: damage to blood vessels and nerves, bleeding, infection, wound complications, need for further surgery, implant/graft failure, need for removal of implant/graft, allergic reaction, prolonged or permanent swelling of the extremity, prolonged or permanent pain or deformity, temporary or permanent toe angulation/deformity, CRPS/RSD, DVT/PE, and anesthetic complications including anaphylaxis or . Patient understands if wound/graft gets infected, it could lead to prolonged oral or IV antibiotics or increased risk of worsening osteomyelitis, which could lead to possible loss of partial foot or even BKA. No guarantees were given. All questions fully answered. The patient verbalized understanding and agreed to proceed with surgery. Verbal and written consent was obtained. Operative findings:: Left foot open wound. 1st MTPJ incision has less edema and no erythema. Proximal wound has healed. Some excoriation secondary to itching to the dorsal lateral foot noted. Superficial abrasion to left lateral 5th met, thru skin only ~1 x 1 x 0cm. Overall medial wound looks stable with no new drainage today. No malodor or ascending cellulitis. Hallux is less angulated medially. No exposed bone or exposed plate and screw in the distal wound at the proximal phalanx level. The plate/hardware was not visible but intact with no signs of screw loosening or backing out from the plate. Sharp excisional full thickness wound debridement with 15' blade/curette thru skin into subq into deep fascia. Post debridement: Left medial foot wound: 100% granular, 1.2 x 0.8 x 0.4cm (deep central: 0.2 x 0.2 x 0.4cm). Minimal bleeding with debridement. Overall looks much smaller. Operative note:: On this date and time patient was deemed an appropriate surgical candidate. With informed consent signed, the patient was taken to the local procedure operating theater room. The patient was positioned supine. No anesthesia was induced. No tourniquet used. Left lower extremity was prepped and draped in normal sterile fashion. 1g IM Rocephin. Left medial dorsal foot wound debridement: Sharp excisional full-thickness debridement with 15 blade, curette down through skin layer, subcutaneous tissue, deep fascia. Proximal phalanx bone was covered with no exposed plate and distal screw. No purulence or SOI noted. The skin edges were debrided with 15' blade, minimal bleeding noted. The wound was flushed with gentamicin irrigation. Skin cleansed with saline. Mastisol applied around the wound edges. Left foot application of Apligraf (Organogenesis wound graft): Farzana collagen was placed directly over the deep wound. Graft was prepared in standard fashion. Graft was cut and placed over the wound and circumferentially around on the irritated excoriated skin, and over the 5th met abrasion. The entire graft (44sq cm) was not utilized (only 38sq cm used, 6cm waste). The graft was placed over the open wound including the collagen and rest of the wound bed (and circumferentially around the surrounding skin as the graft was larger than the wound) and secured with Steri-Strips. Adaptic was applied over the graft. Application of wound vac: Black foam cut to size and applied over adaptic. A [employer] medical wound VAC was applied in standard technique at 135 mmHg medium continuous pressure. A gauze, katy, Shaan were applied to left foot. The patient tolerated the procedure well, without complications. Materials: Organogenesis Aligraf wound graft x1 (44sq cm: please note only 38sq cm used, 6cm waste), [employer] wound vac, Promogran Farzana collagen x1 (4.34sq ) Discharge/Plan: Ok to discharge home when ready and vss. Patient is to maintain dressing clean dry and intact. Elevate on two pillows. Minimize weight bearing. Ideally PWB to heel in fracture boot/post op shoe with walker. Follow up on Fri08/26/25 with [facility] for vac change and Podiatry Fri08/29/25 for wound re-evaluation. Plan for staged surgery for Wedn 08/31/25 for left foot wound debridement, application of wound graft, possible application of wound VAC. Condition: stable Disposition: no change Complications:: None
[2025-08-24] MEDS: cefTRIAXone 1GM VIAL 1 GM IM (09:37)
[2025-08-24] MEDS: GENTAMICIN 80 MG/2 ML VIAL (10:26)
== END 2025-08-24 09:20 | disposition home or self-care (01) ==
PROVIDERS: PCP Nurse Practitioner; Visit Provider Podiatrist
PROC: (CPT 11043; principal; 2025-08-24 09:00)
DX: I83.025 Varicose veins of left lower extremity with ulcer other part of foot (principal); L97.529 Non-pressure chronic ulcer of other part of left foot with unspecified severity; I87.2 Venous insufficiency (chronic) (peripheral); M06.9 Rheumatoid arthritis, unspecified; I10 Essential (primary) hypertension; G47.33 Obstructive sleep apnea (adult) (pediatric); M79.7 Fibromyalgia; G43.909 Migraine, unspecified, not intractable, without status migrainosus; Z79.899 Other long term (current) drug therapy; Z88.8 Allergy status to other drugs, medicaments and biological substances; Z88.3 Allergy status to other anti-infective agents; Z91.040 Latex allergy status; Z88.5 Allergy status to narcotic agent; Z91.010 Allergy to peanuts
CPT/HCPCS: 11043; 15275; 15276; J0696; J1580; Q4101

== ENCOUNTER 2025-08-26 16:00 | Outpatient (RCR) | payer BC, SELFPAY ==
--- NOTE | 2025-08-19 16:00 | HMH.PTOPWND ---
Rehab Wound Evaluation Rehab OP Wound Evaluation Start: 08/19/25 15:50 Freq: Status: Active Protocol: Document 08/19/25 15:51 HALI (Rec: 08/19/25 16:00 PHORODNEY [id number]) E-signed By Tobias Damon, PT Subjective/History History History This is the initial PT wound care eval for Joie Tavares, 64 yowf who presents with L great toe wound for several months. She had surgery several months ago with delayed healing and post-op wound infection. Wound healing has remained delayed despite considerable conservative treatment efforts. This led to further surgical debridement and now skin graft application. She presents this date with skin graft in place covered with wound VAC dressing topically. SHe reports no c/o pain at this time, but she is anxious about her toe healing. Wound Eval Wound Left Anterior Great Toe Wound Type Incision Is This a Chronic Yes Wound Wound Length (cm) 0.3 Wound Width (cm) 0.3 Wound Depth (cm) 0.1 Wound Bed Appearance [place] Wound Margins Well Defined Description Surrounding Tissue [place],Bright Red Appearance Drainage Description Serous Drainage Amount Small Packing Type Woundvac Sponge Comment overlying graft Primary Dressing Transparent Drape Wound Debridement None Amount of Tissue Removed Dressing Change Tolerated Well Patient Tolerance Devlin-Espinosa Wound Assessment Tool Assessment Wound size 1=Length x Width <4 sq cm Wound depth 2=Partial thickness skin loss involving epidermis &/or dermis Wound edges 2=Distinct, outline clearly visible, attached, even with wound base Wound undermining 1=None present Necrotic tissue type 1=Non visible Necrotic tissue 1=None visible amount Exudate type 3=Serosanguineous: thin, watery, pale red/pink Exudate amount 3=Small Skin color 2=Bright red &/or blanches to touch surrounding wound Peripheral tissue 1=No swelling or edema edema Peripheral tissue 1=None present induration Granulation tissue 2=Bright, beefy red;75% to 100% of wound filled &/or tissue overgrowth Epithelialization 3=50% to <75% wound covered &/or epithelial tissue extends to < 0.5cm Wound assessment 23 total score Wound Problems/Impairments Impairments Problems/ Impaired Walking,Impaired Standing,Impaired Shower/ Impairmments Bathing,Impaired Household Care,Impaired Stepping on Uneven Surface,Impaired Recreational Activities,Wound Care Needs,Impaired Self Care/Self Management Prognosis Rehab Potential Good Comment Skilled therapy is indicated in order to reduce overall wound surface area and debride necrotic tissue in order to improve pt QOL and aid wound healing time. Clinical Impression Consistent with Yes Diagnosis Wound Patient Goals Wound Patient Goals Wound Short Term In 2 wks pt will: Patient Goals 1) Reduce total wound surface area by 50% Wound Label Remover In 4 wks pt will: Patient Goals 1) Reduce total wound surface area by 100% Outpatient Therapy Plan of Care Treatment Plan May Include Therapeutic Exercise Yes Including Home Exercise Program Manual Therapy Yes Techniques Neuromuscular Re- Yes education Therapeutic Yes Activities to Return to Previous Functional/Work Level ADL/Self Care Yes Education Orthotics/Bracing/ Yes Splinting Manual Lymphatic Yes Drainage Wound Care Yes Eval/Re-Eval Yes Frequency Times per week 2 Duration Number of Weeks 4 Addendums This patient is a No candidate for social or vocational rehab ? Patient/Guardian Yes verbally acknowledges understanding of treatment program and consents to further treatment? Patient/Guardian Yes verbally acknowledges understanding of diagnosis, prognosis and goals for treatment? Eval Complexity PT Charges 32726 - High Complexity PHYSICIAN CERTIFICATION: I certify the specified therapy services for Joie Tavares are required, authorized, and reviewed every 30 days.
== END 2025-08-26 23:59 | disposition home or self-care (01) ==
LOC: PT 16:00
PROVIDERS: Visit Provider Podiatrist
DX: S91.302D Unspecified open wound, left foot, subsequent encounter (principal); I83.025 Varicose veins of left lower extremity with ulcer other part of foot; T81.89XD Other complications of procedures, not elsewhere classified, subsequent encounter
CPT/HCPCS: 97163; 97605

== ENCOUNTER 2025-08-31 07:51 | Day surgery (SDC) | payer BC, SELFPAY ==
[2025-08-31 08:03] VITALS: BMI 31.3
[2025-08-31 08:07] VITALS: BP 136/86; PULSE 62; RESP 18; TEMP 36.2; O2SAT 96
[2025-08-31] MEDS: GENTAMICIN 80 MG/2 ML VIAL (09:08)
[2025-08-31 09:30] VITALS: BP 130/72; PULSE 55; RESP 18; TEMP 36.2; O2SAT 97
--- NOTE | 2025-08-31 09:38 | EXP.OP.NOTE ---
Date of procedure: 08/31/25 Pre-op Diagnosis:: Left foot surgical wound Left venous stasis ulcer B/L venous insufficiency RA Post-op Diagnosis:: Same Procedure performed[facility] Application of skin graft substitute leg ([id number]) Surgical prep of skin graft recipient site (36594) Wound debridement (93868) Application on wound vac (79830) Surgeon:: Mony Peterson DPM Anesthesia: none Estimated blood loss (mL): 2 Clinical Note:: Pre-Op indications: Patient is a 64-year-old female with a left foot surgical wound/venous statsis ulcer. Patient has failed conservative treatment, including multiple debridements, various wound dressings, antibiotics, immobilization, wound vac therapy. Patient has seen both [facility] wound care clinic and [facility] (patient unable to tolerate HBOT chamber). Patient had recent CT left foot which showed suspected osteomyelitis. She had surgery 06/16/25 for bone biopsy, wound debridemet, wound vac application. She has had several rounds of oral antibiotics: Cipro, Levo, Doxy, topical gentamicin. Referral for Infectious Disease made, made on culture results. Recommended PICC, IV Vanco. She had surgery for wound debridement, Organogenesis Apligraf application #1 on 06/29/25 and clary #2 on 07/06/25, clary #3 on 07/13/25, clary #4 on 07/20/25 and clary #5 on 07/27/25. Insurance did approve 5 more grafts. She had surgery 08/17/25 for bone biopsy, wound debridemet, wound graft application #6. The bone path showed positive acute osteomyelitis with reactive bone but bone culture had no growth. I explained this could be bc of prior IV/oral antibiotic therapy, low bacterial count/load, or inflammatory arthritis. Discussed options for treatment of OM including continued wound care/wound debridements, oral/IV antibiotics, referral back to infectious disease, HBOT, amputation. Patient understands the risks and would like to avoid PICC, IV antibiotics and is unable to do HBOT due to claustrophobia and time commitment. We discussed staged graft application surgery. Had surgery for left foot wound debridement, Organogenesis Apligraf application #7 on 08/24/25 and planning for graft #8 on 08/31/25. All risks and benefits were discussed including but not limited to: damage to blood vessels and nerves, bleeding, infection, wound complications, need for further surgery, implant/graft failure, need for removal of implant/graft, allergic reaction, prolonged or permanent swelling of the extremity, prolonged or permanent pain or deformity, temporary or permanent toe angulation/deformity, CRPS/RSD, DVT/PE, and anesthetic complications including anaphylaxis or . Patient understands if wound/graft gets infected, it could lead to prolonged oral or IV antibiotics or increased risk of worsening osteomyelitis, which could lead to possible loss of partial foot or even BKA. No guarantees were given. All questions fully answered. The patient verbalized understanding and agreed to proceed with surgery. Verbal and written consent was obtained. Operative findings:: Left foot open wound. 1st MTPJ incision has less edema and no erythema. Proximal wound has healed. Some excoriation secondary to itching to the dorsal lateral foot noted but improved. Superficial abrasion to left lateral 5th met has healed. Overall medial wound looks stable with no new drainage or new signs of infection today. No malodor or ascending cellulitis. Hallux is angulated medially (where skin is healing and ruy together). No exposed bone or exposed plate and screw in the distal wound. Sharp excisional full thickness wound debridement with 15' blade/curette thru skin into subq into deep fascia. Post debridement: Left medial foot wound: 100% granular, 0.9 x 0.6 x 0.25cm (deep central: 0.2 x 0.2 x 0.25cm). Minimal bleeding with debridement. Overall looks smaller. Operative note:: On this date and time patient was deemed an appropriate surgical candidate. With informed consent signed, the patient was taken to the local procedure operating theater room. The patient was positioned supine. No anesthesia was induced. No tourniquet used. Left lower extremity was prepped and draped in normal sterile fashion. 1g IM Rocephin. Left medial dorsal foot wound debridement: Sharp excisional full-thickness debridement with 15 blade, curette, forceps down through skin layer, subcutaneous tissue, deep fascia. Proximal phalanx bone was covered with no exposed plate and distal screw. No purulence or SOI noted. The skin edges were debrided with 15' blade, minimal bleeding noted. The wound was flushed with gentamicin irrigation. Skin cleansed with saline. Mastisol applied around the wound edges. Left foot application of Apligraf (Organogenesis wound graft): Farzana collagen was placed directly over the deep wound. Graft was prepared in standard fashion. Graft was cut and placed over the wound and circumferentially around on the irritated excoriated skin. The entire graft (44sq cm) was utilized. The graft was placed over the open wound including the collagen and rest of the wound bed (and circumferentially around the surrounding skin as the graft was larger than the wound to help with skin excoriations) and secured with Steri-Strips. Adaptic was applied over the graft. Application of wound vac: Black foam cut to size and applied over adaptic. A [employer] wound VAC was applied in standard technique at 135 mmHg medium continuous pressure. A gauze, katy, Shaan were applied to left foot. The patient tolerated the procedure well, without complications. Materials: Organogenesis Aligraf wound graft x1 (44sq cm entire graft used, 0 waste), [employer] wound vac, Promogran Farzana collagen x1 (4.34sq ) Discharge/Plan: Ok to discharge home when ready and vss. Patient is to maintain dressing clean dry and intact. Elevate on two pillows. Minimize weight bearing. Ideally PWB to heel in fracture boot/post op shoe with walker. Follow up on Fri09/02/25 with [facility] for vac change and Podiatry Fri09/05/25 for wound re-evaluation. Plan for staged surgery for 09/07/25 for left foot wound debridement, application of wound graft, possible application of wound VAC. Condition: stable Disposition: same day Complications:: None
== END 2025-08-31 09:38 | disposition home or self-care (01) ==
PROVIDERS: PCP Nurse Practitioner; Visit Provider Podiatrist
PROC: (CPT 15002; principal; 2025-08-31 09:00)
DX: I83.025 Varicose veins of left lower extremity with ulcer other part of foot (principal); I87.2 Venous insufficiency (chronic) (peripheral); M79.7 Fibromyalgia; I10 Essential (primary) hypertension; G47.33 Obstructive sleep apnea (adult) (pediatric); M06.9 Rheumatoid arthritis, unspecified; Z88.8 Allergy status to other drugs, medicaments and biological substances; Z91.040 Latex allergy status; Z88.5 Allergy status to narcotic agent; Z91.010 Allergy to peanuts; Z79.891 Long term (current) use of opiate analgesic; Z79.899 Other long term (current) drug therapy
CPT/HCPCS: 15002; 15271; 15272; J1580; Q4101

== ENCOUNTER 2025-09-07 07:49 | Day surgery (SDC) | payer BC, SELFPAY ==
[2025-09-07 07:54] VITALS: BMI 31.3
[2025-09-07 08:00] VITALS: BP 156/74; PULSE 77; RESP 18; TEMP 36.3; O2SAT 95
--- NOTE | 2025-09-07 08:49 | EXP.OP.NOTE ---
Date of procedure: 09/07/25 Pre-op Diagnosis:: Left foot surgical wound Left venous stasis ulcer B/L venous insufficiency RA Post-op Diagnosis:: Same Procedure performed:: [facility] Application of skin graft substitute leg ([id number]) Surgical prep of skin graft recipient site (79706) Wound debridement (07343) Application on wound vac (24282) Surgeon:: Mony Peterson DPM Anesthesia: none Estimated blood loss (mL): 2 Clinical Note:: Pre-Op indications: Patient is a 64-year-old female with a left foot surgical wound/venous statsis ulcer. Patient has failed conservative treatment, including multiple debridements, various wound dressings, antibiotics, immobilization, wound vac therapy. Patient has seen both [facility] wound care clinic and [facility] (patient unable to tolerate HBOT chamber). Patient had recent CT left foot which showed suspected osteomyelitis. She had surgery 06/16/25 for bone biopsy, wound debridemet, wound vac application. She has had several rounds of oral antibiotics: Cipro, Levo, Doxy, topical gentamicin. Referral for Infectious Disease made, made on culture results. Recommended PICC, IV Vanco. She had surgery for wound debridement, Organogenesis Apligraf application #1 on 06/29/25 and clary #2 on 07/06/25, clary #3 on 07/13/25, clary #4 on 07/20/25 and clary #5 on 07/27/25. Insurance did approve 5 more grafts. She had surgery 08/17/25 for bone biopsy, wound debridement, wound graft application #6. The bone path showed positive acute osteomyelitis with reactive bone but bone culture had no growth. I explained this could be bc of prior IV/oral antibiotic therapy, low bacterial count/load, or inflammatory arthritis. Discussed options for treatment of OM including continued wound care/wound debridements, oral/IV antibiotics, referral back to infectious disease, HBOT, amputation. Patient understands the risks and would like to avoid PICC, IV antibiotics and is unable to do HBOT due to claustrophobia and time commitment. We discussed staged graft application surgery. Had surgery for left foot wound debridement, Organogenesis Apligraf application #7 on 08/24/25, graft #8 on 08/29/25 and planning for graft #9 on 09/07/25. All risks and benefits were discussed including but not limited to: damage to blood vessels and nerves, bleeding, infection, wound complications, need for further surgery, implant/graft failure, need for removal of implant/graft, allergic reaction, prolonged or permanent swelling of the extremity, prolonged or permanent pain or deformity, temporary or permanent toe angulation/deformity, CRPS/RSD, DVT/PE, and anesthetic complications including anaphylaxis or . Patient understands if wound/graft gets infected, it could lead to prolonged oral or IV antibiotics or increased risk of worsening osteomyelitis, which could lead to possible loss of partial foot or even BKA. No guarantees were given. All questions fully answered. The patient verbalized understanding and agreed to proceed with surgery. Verbal and written consent was obtained. Operative findings:: Left foot open wound. 1st MTPJ incision has less edema and no erythema. Proximal wound has healed. Some dorsal midfoot excoriation secondary to itching noted. Superficial abrasion to left lateral 5th met healed. Overall medial wound has no new drainage. No malodor or ascending cellulitis. Hallux is angulated medially (where skin is healing and ruy together). No exposed bone or exposed plate and screw in the distal wound. Sharp excisional full thickness wound debridement with 15' blade/curette, forceps thru skin into subq. Post debridement: Left medial foot wound: 100% granular, 0.6 x 0.5 x 0.2m (deep central: 0.2 x 0.1 x 0.2cm). Minimal bleeding with debridement. Overall looks much smaller. Operative note:: On this date and time patient was deemed an appropriate surgical candidate. With informed consent signed, the patient was taken to the local procedure operating theater room. The patient was positioned supine. No anesthesia was induced. No tourniquet used. Left lower extremity was prepped and draped in normal sterile fashion. Left medial dorsal foot wound debridement: Sharp excisional full-thickness debridement with 15 blade, curette, forceps down through skin layer, subcutaneous tissue. No exposed deep fascia. Proximal phalanx bone was covered with no exposed plate and distal screw. No purulence or SOI noted. The skin edges were debrided with 15' blade, minimal bleeding noted. The wound was flushed with gentamicin irrigation. Skin cleansed with saline. Mastisol applied around the wound edges. Left foot application of Apligraf (Organogenesis wound graft): Farzana collagen was placed directly over the deep wound. Graft was prepared in standard fashion. Graft was cut and placed over the wound and circumferentially around on the irritated excoriated skin. The entire graft (44sq cm) was utilized. The graft was placed over the open wound including the collagen and rest of the wound bed (and circumferentially around the surrounding skin as the graft was larger than the wound to help with skin excoriations) and secured with Steri-Strips. Adaptic was applied over the graft. Application of wound vac: Black foam cut to size and applied over adaptic. A [employer] wound VAC was applied in standard technique at 135 mmHg medium continuous pressure. A gauze and Shaan were applied to left foot. The patient tolerated the procedure well, without complications. Materials: Organogenesis Aligraf wound graft x1 (44sq cm entire graft used, 0 waste), [employer] wound vac, Promogran Farzana collagen x1 (4.34sq ) Discharge/Plan: Ok to discharge home when ready and vss. Patient is to maintain dressing clean dry and intact. Elevate on two pillows. Minimize weight bearing. Ideally PWB to heel in fracture boot/post op shoe with walker. Follow up on Fri09/09/25 with [facility] for vac change and Podiatry Fri09/12/25 for wound re-evaluation. (Discussed possible staged surgery for Wed09/14/25 for left foot wound debridement, application of wound graft, possible application of wound VAC - but will hold on scheduling as she may not need final graft #10). Condition: stable Disposition: same day Complications:: None
[2025-09-07] MEDS: GENTAMICIN 80 MG/2 ML VIAL (08:55)
[2025-09-07 09:22] VITALS: BP 139/80; PULSE 54; RESP 16; TEMP 36.3; O2SAT 97
[2025-09-07 09:38] VITALS: BP 139/80; PULSE 54; RESP 16; TEMP 36.3; O2SAT 97
== END 2025-09-07 09:34 | disposition home or self-care (01) ==
PROVIDERS: PCP Nurse Practitioner; Visit Provider Podiatrist
PROC: (CPT 15275; principal; 2025-09-07 09:00)
DX: I87.2 Venous insufficiency (chronic) (peripheral) (principal); L97.421 Non-pressure chronic ulcer of left heel and midfoot limited to breakdown of skin; I83.025 Varicose veins of left lower extremity with ulcer other part of foot; M06.9 Rheumatoid arthritis, unspecified; G47.33 Obstructive sleep apnea (adult) (pediatric); M79.7 Fibromyalgia; I10 Essential (primary) hypertension; E66.811 Obesity, class 1; Z68.31 Body mass index [BMI] 31.0-31.9, adult; G43.909 Migraine, unspecified, not intractable, without status migrainosus; Z79.899 Other long term (current) drug therapy; Z88.8 Allergy status to other drugs, medicaments and biological substances; Z91.040 Latex allergy status; Z88.5 Allergy status to narcotic agent; Z91.010 Allergy to peanuts
CPT/HCPCS: 15275; 15276; J1580; Q4101

== ENCOUNTER 2025-09-09 16:00 | Outpatient (RCR) | payer BC, SELFPAY | END 2025-09-09 23:59 | disposition home or self-care (01) | LOC: PT 16:00 | PROVIDERS: Visit Provider Podiatrist | DX: S91.302A Unspecified open wound, left foot, initial encounter (principal); I83.025 Varicose veins of left lower extremity with ulcer other part of foot | CPT/HCPCS: 97605 ==

== ENCOUNTER 2025-10-28 12:56 | Outpatient (CLI) | payer BC, SELFPAY ==
--- OUTSIDE RECORDS SUMMARY | 2025-10-28 12:59 | XMS_ITS | Encounter Summary ---
Author Organization [employer] ([place], [place], [place], [place], [place]) Address [address] [place] [address] Care Team Providers Care Table Hand Name Role Phone Unavailable Primary Care Provider Unavailabl e Encounter Details Date Type Department Care Team (Late st Contact Info) Description 01/25/2021 Transcribed Document [facility] [place] [facility] [place] [address] ProviderLibrado MD [facility] [place] [address] Social History Tobacco Use Types [...] - Librado ProviderMD - 01/25/2021 11:37 AM UI APPLICATION DEVELOPER Meds to Bed Enrollment Entered On: 01/25/2021 11:37 EST Performed On: 01/25/2021 11:37 EST by Deisy Collins RN Meds to Bed Enrollment Patient Enrollment Decision: : No/do not enroll in meds to bed program Deisy Collins RN - 01/25/2021 11:37 EST Electronically signed by Dilia [facility] Conversion Car Hostler Cerner at 03/21/2023 12:59 PM CDT documented in this encounter Plan of Treatment Not on file documented as of this encounter Visit Diagnoses Not on filedocumented in this encounter
--- OUTSIDE RECORDS SUMMARY | 2025-10-28 12:59 | XMS_ITS | Clinical Summary ---
Author Organization [employer] ([place], [place], [place], [place], [place]) Address [address] [place] [address] Care Team Providers Care Secret Code Expert Name Role Phone Unavailable Primary Care Provider [...]
--- OUTSIDE RECORDS SUMMARY | 2025-10-28 12:59 | XMS_ITS | Encounter Summary ---
Author Organization [employer] ([place], [place], [place], [place], [place]) Address [address] [place] [address] Care Team Providers Care Jewish Thought Professor Name Role Phone Unavailable Primary Care Provider Unavailabl e Encounter Details Date Type Department Care Team (Late st Contact Info) Description 03/22/2021 Transcribed Document [facility] [place] [address] [place] [address] ProviderLibrado MD [address] [place] [address] Social History Tobacco Use Types Packs/Day Years Used Date Smoking Tobacco: Never Assessed Comments Unknown Sex and Gender Information Value Date Recorded Sex Assigned at Not on file Legal Sex Female 1:10 PM CDT Gender Identity Not on file Sexual Orientation Not on file documented as of this encounter Miscellaneous Notes * Cerner Conversion Note - Librado ProviderMD - 03/22/2021 5:00 AM CDT Chart Check - Review Order Profile Entered On: 03/22/2021 3:10 EDT Performed On: 03/22/2021 5:00 EDT by Mayela Granados, Rn Chart Check Powerplans Initiated/Discontinued as Appropriate : Yes All Active Orders Reviewed : Yes Mayela Granados, Rn - 03/22/2021 3:10 EDT Electronically signed by Kristina Dobbs Conversion Associate Professor Of Engineering Cerner at 03/21/2023 1:12 PM CDT documented in this encounter Plan of Treatment Not on file documented as of this encounter Visit Diagnoses Not on filedocumented in this encounter
--- OUTSIDE RECORDS SUMMARY | 2025-10-28 12:59 | XMS_ITS | Encounter Summary ---
Author Organization [employer] ([place], [place], [place], [place], [place]) Address [address] [place] [address] Care Team Providers Care Auger Machine Offbearer Name Role Phone Unavailable Primary Care Provider Unavailabl e Encounter Details Date Type Department Care Team (Late st Contact Info) Description 03/22/2021 Transcribed Document [facility] [place] Family Medicine [facility] [place] [address] ProviderLibrado MD [address] [place] [address] Social History Tobacco Use Types Packs/Day Years Used Date Smoking Tobacco: Never Assessed Comments Unknown Sex and Gender Information Value Date Recorded Sex Assigned at Not on file Legal Sex Female 1:10 PM CDT Gender Identity Not on file Sexual Orientation Not on file documented as of this encounter Miscellaneous Notes * Cerner Conversion Note - Librado ProviderMD - 03/22/2021 11:04 AM CDT Meds [...]
--- OUTSIDE RECORDS SUMMARY | 2025-10-28 12:59 | XMS_ITS | Encounter Summary ---
Author Organization [employer] ([place], [place], [place], [place], [place]) Address [address] [place] [address] Care Team Providers Care Fast Food Crew Member Name Role Phone Unavailable Primary Care Provider Unavailabl e Encounter Details Date Type Department Care Team (Late st Contact Info) Description 03/21/2021 Transcribed Document [facility] [place] Medicine [facility] [place] [address] ProviderLibrado MD [facility] [place] [address] Social History Tobacco Use Types [...] : No Emergency Contact #1 : [place] Emergency Contact #1 or [phone] Emergency Contact #1 Relationship : Spouse Emergency Contact #2 : . Emergency Contact #2 Phone Number : . Emergency Contact #2 Relationship : . Information Obtained From : Patient Primary Language : [place] Preferred Communication Mode : Verbal Communication Barrier : None Insurance Adviser Needed : No Currently Lactating : No [...] Level : 46 or > High Risk [place] Fall Interventions : Adequate lighting, Assistive devices [...] Source : Measured Height Entry Format : Henderson Height, Feet : 5 ft(Converted to: 152 cm, 60 Inch) Height, Inches : 7 Inch(Converted to: 0 ft 7 Inch, 17.78 cm) Clinical Height : 170.18 cm Weight Source : Standing scale Weight Entry Format : Henderson Clinical Dosing Weight : 93.18 kg Weight, Pounds : 205 lb Body Surface Area (BSA) : 2.05 m2 Body Mass Index : 32.2 kg/m2 (HI) [place] Body Weight : 61 kg Beatrice Torres [...] Beatrice Torres RN - 03/21/2021 10:42 EDT [place] Suicide Severity Rating Scale (C-SSRS) CSSRS Past [...]
--- OUTSIDE RECORDS SUMMARY | 2025-10-28 12:59 | XMS_ITS | Encounter Summary ---
Author Organization [employer] ([place], [place], [place], [place], [place]) Address [address] [place] [address] Care Team Providers Care Hedge Fund Manager Name Role Phone Unavailable Primary Care Provider Unavailabl e Encounter Details Date Type Department Care Team (Late st Contact Info) Description 03/22/2021 Transcribed Document [facility] [place] Medicine [facility] [place] [place] [address] ProviderLibrado MD [facility] [place] [address] Social History Tobacco Use Types Packs/Day Years Used Date Smoking Tobacco: Never Assessed Comments Unknown Sex and Gender Information Value Date Recorded Sex Assigned at Not on file Legal Sex Female 1:10 PM CDT Gender Identity Not on file Sexual Orientation Not on file documented as of this encounter Miscellaneous Notes * Cerner Conversion Note - Librado Limon MD - 03/22/2021 12:19 PM CDT [place] [phone] JOIE HAQ :1960 Visit Time:03/21/2021 Your Visit [...] Physical Therapy Home Health Services: [facility] Medical Equipment for Home Use: Patient has [...] When 04/03/2021 09:15 AM EDT Where: [address] [facility] [address] [place] [address]- Medications What How Much When Instructions Next [...] for migraine headache as needed Pharmacy Information [facility]: [address] [phone] Take your medications faithfully. Do NOT skip [...] (Tingling) Latex (Itching, hives) Cats (Congestion) Dexpak JrLove Taperpak (Migraine, Insomnia) Dilaudid (Slow to wake [...] Barley. Bulgur wheat. Millet. Bran muffins. Popcorn. [place] wafer crackers. ??? Vegetables Sweet potatoes. Spinach. Kale. Artichokes. Cabbage. Broccoli. Green peas. Carrots. Squash. ??? Fruits Berries. Pears. Apples. Oranges. Avocados. Prunes and raisins. Dried figs. ??? Meats and Other Protein Sources [place], kidney, romero, and soy beans. Split peas. [...] humza has 11 g of protein. ??? [place] seeds ??? 1 oz has 5.5 g [...] floor. ??? Place frequently used items in eskh-me-wceeh places ??? Keep electrical cables out of [...] ? Using the bathroom. ? Using household lumber kiln operator or toxic chemicals. ? Touching or taking [...] through the local health department and the [place] Department for Public Health. Those organizations are [...] and need to call 911, notify the boiler house operator that you have, or think you [...] clean your hands with an alcohol-based hand redevelopment specialist that contains at least 60% alcohol. Clean your hands often. ??? Wash hands: Wash your hands often with soap and water for at least 20 seconds when visibly dirty. This is especially important after blowing your nose, coughing or sneezing, and going to the bathroom, and before eating or preparing food. ??? Hand redevelopment specialist: Use an alcohol-based hand redevelopment specialist with at least 60% alcohol, covering [...] and water or put them in the mop handle assembler. Clean all high-touch surfaces every day. Clean [...] or body fluids on them. ??? Household lumber kiln operator and disinfectants: Clean the area or [...] list of disinfectants can be found here: https://www.epa.gov/pesticide-registration/esir-p-nyvoxynmijfij-rsz-xisagep-as rs-cov-2 ondansetron (oral) (on ELAINA se rc) [...] may report side effects to FDA at 8-849-QEH-7388. What other drugs will affect ondansetron? Ondansetron [...] interact with ondansetron. This includes prescription and xnxn-sei-yrcnzry medicines, vitamins, and herbal products. Give a [...] to ensure that the information provided by [employer]. ('Multum') is accurate, up-to-date, and complete, but no guarantee is made to that effect. Drug information contained herein may be time sensitive. [employer] information has been compiled for use by healthcare practitioners and consumers in the [place] and therefore [employer] does not warrant that uses outside of the [place] are appropriate, unless specifically indicated otherwise. [employer] drug information does not endorse drugs, diagnose patients or recommend therapy. [employer] drug information is an informational resource designed [...] effective or appropriate for any given patient. [employer] does not assume any responsibility for any aspect of healthcare administered with the aid of information [employer] provides. The information contained herein is not intended to cover all possible uses, directions, precautions, warnings, drug interactions, allergic reactions, or adverse effects. If you have questions about the drugs you are taking, check with your doctor, nurse or pharmacist. Copyright 7945-1108 [employer]. Version: 13.. Revision Date: 09/20/2016. cephalexin (sef a GUILHERME [...] may report side effects to FDA at 0-377-FDJ-7260. What other drugs will affect cephalexin? Tell your doctor about all your other medicines, especially: ?? metformin; or ?? probenecid. This list is not complete. Other drugs may affect cephalexin, including prescription and yzmf-ien-hdbgkid medicines, vitamins, and herbal products. Not all [...] to ensure that the information provided by [employer]. ('Multum') is accurate, up-to-date, and complete, but no guarantee is made to that effect. Drug information contained herein may be time sensitive. [employer] information has been compiled for use by healthcare practitioners and consumers in the [place] and therefore [employer] does not warrant that uses outside of the [place] are appropriate, unless specifically indicated otherwise. [employer] drug information does not endorse drugs, diagnose patients or recommend therapy. [employer] drug information is an informational resource designed [...] effective or appropriate for any given patient. [facility] does not assume any responsibility for any aspect of healthcare administered with the aid of information [facility] provides. The information contained herein is not intended to cover all possible uses, directions, precautions, warnings, drug interactions, allergic reactions, or adverse effects. If you have questions about the drugs you are taking, check with your doctor, nurse or pharmacist. Copyright 6049-7997 [facility]. Version: 10.03. Revision Date: 12/04/2020. acetaminophen (oral) (a SEET a MIN oh fen) Actamin, Anacin AF, Aurophen, Bromo [place], Children's Tylenol, Mapap, M-Pap, Pharbetol, Silapap Childrens, [...] is a pain reliever and a fever hospital clinic assistant. There are many brands and forms of [...] may report side effects to FDA at 5-356-HZF-3135. What other drugs will affect acetaminophen? Other drugs may affect acetaminophen, including prescription and mmxi-rbb-fnmjwmx medicines, vitamins, and herbal products. Tell your [...] to ensure that the information provided by [employer]. ('SmartCare systemtum') is accurate, up-to-date, and complete, but no guarantee is made to that effect. Drug information contained herein may be time sensitive. [employer] information has been compiled for use by healthcare practitioners and consumers in the [place] and therefore [employer] does not warrant that uses outside of the [place] are appropriate, unless specifically indicated otherwise. [employer] drug information does not endorse drugs, diagnose patients or recommend therapy. [employer] drug information is an informational resource designed [...] effective or appropriate for any given patient. [employer] does not assume any responsibility for any aspect of healthcare administered with the aid of information [employer] provides. The information contained herein is not intended to cover all possible uses, directions, precautions, warnings, drug interactions, allergic reactions, or adverse effects. If you have questions about the drugs you are taking, check with your doctor, nurse or pharmacist. Copyright 4263-1430 [employer]. Version: 21.04. Revision Date: 07/07/2020. meloxicam (oral/injection) [...] may report side effects to FDA at 5-394-IOB-5784. What other drugs will affect meloxicam? Ask [...] drugs may affect meloxicam, including prescription and offg-hob-mkxlufb medicines, vitamins, and herbal products. Not all [...] to ensure that the information provided by [employer]. ('Multum') is accurate, up-to-date, and complete, but no guarantee is made to that effect. Drug information contained herein may be time sensitive. [employer] information has been compiled for use by healthcare practitioners and consumers in the [place] and therefore [employer] does not warrant that uses outside of the [place] are appropriate, unless specifically indicated otherwise. [employer] drug information does not endorse drugs, diagnose patients or recommend therapy. [employer] drug information is an informational resource designed [...] effective or appropriate for any given patient. [employer] does not assume any responsibility for any aspect of healthcare administered with the aid of information [employer] provides. The information contained herein is not intended to cover all possible uses, directions, precautions, warnings, drug interactions, allergic reactions, or adverse effects. If you have questions about the drugs you are taking, check with your doctor, nurse or pharmacist. Copyright 6051-4405 [employer]. Version: 14.. Revision Date: 10/03/2020. docusate (oral/rectal) [...]
--- OUTSIDE RECORDS SUMMARY | 2025-10-28 12:59 | XMS_ITS | Encounter Summary ---
Author Organization [employer] ([place], [place], [place], [place], [place]) Address [address] [place] [address] Care Team Providers Care Pattern Chain Builder Name Role Phone Unavailable Primary Care Provider Unavailabl e Encounter Details Date Type Department Care Team (Late st Contact Info) Description 03/08/2021 Transcribed Document [facility] [place] Family Medicine [facility] [place] [address] ProviderLibrado MD [facility] [place] [address] Social History Tobacco Use Types Packs/Day Years Used Date Smoking Tobacco: Never Assessed Comments Unknown Sex and Gender Information Value Date Recorded Sex Assigned at Not on file Legal Sex Female 1:10 PM CDT Gender Identity Not on file Sexual Orientation Not on file documented as of this encounter Miscellaneous Notes * Cerner Conversion Note - Librado Limon MD - 03/08/2021 8:28 AM CDT Patient: JOIE [...] Appearance CLEAR2 03/08/2021 09:44 EDT Urine Specific Laie 1.012 03/08/2021 09:44 EDT Urine pH Dipstick [...] only. Electronically signed by Kristina Dobbs Conversion Kindergarten Paraprofessional Cerner at 03/21/2023 1:07 PM CDT documented in this encounter Plan of Treatment Not on file documented as of this encounter Visit Diagnoses Not on filedocumented in this encounter
--- OUTSIDE RECORDS SUMMARY | 2025-10-28 12:59 | XMS_ITS | Clinical Summary ---
Author Organization [facility] Address [address] [place] [address] Phone Care Team Providers Care Target Aircraft Controller Name Role Phone Marcio STILES, Brian Kate [ ] Conditions or Problems Problem Name Problem Code Onset Date Status Entry Date Provider Comment Standard Description Annotate Eschar 803374464 (SNOMED CT) Active Brian Buckley MD Skin eschar Hematoma of arm 641725444 (SNOMED CT) Active Brian Buckley MD Hematoma Other obesity due to excess calories 112745974 (SNOMED CT) Active Yasmin Minor Simple obesity Gram negative infection 679660587 (SNOMED CT) Active Brian Buckley MD 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-negative bacteria Wound infection 08420455 (SNOMED CT) Active Brian Buckley MD Local infection of wound Knee, right, initial encounter(s) , 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 T84.53xA (ICD-10-CM) Active Clare Hemal Infection and 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 prosthesis, initial encounter Effusion, right knee M25.461 (ICD-10-CM) Active Clare Hemal Effusion, right knee Cellulitis of RLE 789381855 (SNOMED CT) Active Clare Hemal Cellulitis of lower limb Medications Medication Instructions Start Date Stop Date Generic Name NDC Provider BACTRIM DS 800-160 MG TABS Take 1 tablet by mouth twice a day 5 sulfamethoxazo le-trimethopri m 63002213448 Brian Buckley MD CLINDAMYCIN HCL 150 MG CAPS by mouth clindamycin hcl [id number] Lois Suarez DIFLUCAN 150 MG TABS by mouth fluconazole 16677176396 Lois Suarez ALLOPURINOL 100 MG TABS by mouth once a day allopurinol 92710432141 Yasmin Minor CEFADROXIL 500 MG CAPS by mouth three times a day cefadroxil 29435962886 Yasmin Minor CLINDAMYCIN HCL 150 MG CAPS by mouth clindamycin hcl 16115411102 Yasmin Minor DICYCLOMINE HCL 20 MG TABS by mouth dicyclomine 92798911874 Yasmin Minor DIFLUCAN 150 MG TABS by mouth fluconazole 23703150322 Yasmin Minor DOXYCYCLINE HYCLATE 100 MG CAPS by mouth twice a day doxycycline hyclate 29424532293 Yasmin Minor FUROSEMIDE 40 MG TABS by mouth once a day furosemide 27445636822 Yasmin Minor LORATADINE 10 MG TABS by mouth once a day loratadine 50466859280 Yasmin Minor LOSARTAN POTASSIUM 25 MG TABS by mouth once a day losartan 54399348744 Yasmin Minor MELOXICAM 15 MG TABS by mouth once a day meloxicam 85948124281 Yasmin Minor METOPROLOL SUCCINATE ER 100 MG [id number] by mouth twice a day metoprolol succinate 57208154418 Yasmin Minor MONTELUKAST SODIUM 10 MG TABS by mouth montelukast 47947826590 Yasmin Minor OSTEO BI-FLEX ONE PER DAY TABS by mouth once a day glucosamine-d3 -boswellia serr 72221875115 Yasmin Minor Medications Administered No information available. [...] Procedures Code Procedure Name Date Entry Date CPT-92894 CMP CPT-85893 Sedimentation Rate (ESR) 202 02/02/09 CPT-02968 C- reactive protein [id number] CBC with Differential 2022 CPT-97420 CMP CPT-86206 C- reactive protein [id number] CBC with Differential 2022 CPT-47715 Sedimentation Rate (ESR) 202 02/01/25 Vital Signs [...]
--- OUTSIDE RECORDS SUMMARY | 2025-10-28 12:59 | XMS_ITS | Data Portability ---
Author Organization [facility] Address [address] [place] [address] Care Team Providers Care Aerospace Engineer Officer Armament Name Role Phone HELIO ROSENBERG Primary Care Provider [phone] HELIO ROSENBERG Referring Provider COLIN SCHULER Primary Care Provider Assessment Encounter Date Assessment Date Assessment LastModified [...] note at that procedure she went to [place] and did a lot of walking for [...] (PROC) - RFA Bilateral L3-L5; 2 weeks [facility] Rui 2020 021 [email or web address] 2 Not available 15:26:13 medial branch block, lumbar (PROC) - #2 LMBB Bilateral L3-L5 in 2 weeks [facility] Rui 2020 021 [email or web address] 2 Not available 11:36:05 Surgeries None recorded. Imaging None recorded. Medication Orders None recorded. Patient TargetsNo targets recorded. Patient Instructions Encounter Date Encounter Id Patient Instructions Last Modified By Organization Details Last Modified Time 10/17/2021 [id number] Much of this encounter is an electronic bite block maker/castro slation of spoken language to printed text. The electronic translation of spoken language may permit erroneous or at times nonsensical words or phrases to be inadvertently transcribed. Although I have reviewed the note for such errors, some may still exist. [email or web address] Not available 10/17/2021 13:43:07 Reason for Referral None Reported. Problems Name Problem SNOMED Code Status Onset Date Resolution Date Notes Provider Name and Address Organization Details Recorded Time Migraine 35706648 Active 2019 MICHOACANO Mock - [facility] 0 09:36:12 Hypertensi ve disorder 96262575 Active 2019 MICHOACANO Mock - [facility] 0 09:36:24 Seronegati ve rheumatoid arthritis 866434136 Active 2019 Barbara Muñoz null, [place] - [facility] 0 09:36:40 Fibromyalg ia 819146559 Active 2019 Barbara Muñoz null, [place] - [facility] 0 09:36:53 Low back pain 081899211 Active 2019 Barbara Muñoz null, [place] - [facility] 0 09:37:00 Hammer toe 818784929 Active 2019 Barbara Muñoz null, [place] - [facility] 0 09:37:12 Pain in right knee Active 2019 Barbara Muñoz null, [place] - [facility] 0 09:37:43 Whooping cough-like syndrome 262555394 Active 2019 Barbara Muñoz null, [place] - [facility] 0 09:38:15 Bilateral elbow tendinitis 6418714892174 9102 Active 2019 Barbara Muñoz null, [place] - [facility] 0 09:38:30 Fusion Active 2019 wrist Barbara Muñoz null, [place] - [facility] 0 09:39:05 Lumbar radiculopa thy 437542990 Active 2020 SADAF LOAIZA NP [address] [place], [address] , [place] - [facility] 1 10:05:48 Spinal stenosis of lumbar region 19736412 Active 2020 SADAF LOAIZA NP [address] [place], [address] , [place] - [facility] 1 10:05:49 Interverte bral disc disorder 18131992 Active 2020 SADAF LOAIZA NP [address] [place], [address] , [place] [facility] 1 10:05:51 Lumbar spondylosi s 594057862 Active 2020 SADAF LOAIZA NP [address] [place], [address] , [place] - [facility] 10:09:59 Problem Notes None recorded. Procedures Surgical History Date Name Laterality Status Provider Name and Address Organization Details Recorded Time 11/07/20 21 Lumbar BISHOP: Interlaminar completed Nolvia Bentley [place] - [facility] 11/07/2021 13:43:46 09/12/20 21 Lumbar RFA (2 Level Bilateral) completed Nolvia Glouster [place] [facility] 09/12/2021 13:50:24 08/24/20 21 Diagnostic Lumbar MBB (2 Level Bilateral) completed Nolvia Bentley [place] [facility] 08/24/2021 08:39:40 08/02/20 21 Diagnostic Lumbar MBB (2 Level Bilateral) completed Nolvia Bentley [place] [facility] 08/02/2021 13:41:12 05/31/20 21 Lumbar BISHOP: Interlaminar completed Nolvia Bentley [place] [facility] 05/31/2021 14:33:01 11/10/20 20 Lumbar Transforaminal Epidural Steroid Injection (2 Levels Unilateral): completed Nolvia Bentley [place] [facility] 11/10/2020 15:33:46 10/13/20 20 Lumbar BISHOP: Interlaminar completed Beatrice Hammer [place] [facility] 10/13/2020 14:06:31 Unlisted px hands/fingers completed Barbara Muñoz [place] [facility] 09/28/2020 09:39:57 Appendectomy completed Barbara Muñoz [place] [facility] 09/28/2020 09:40:03 ligation of fallopian tube completed Barbara Muñoz [place] [facility] 09/28/2020 09:40:12 release of trigger finger completed Barbara Muñoz [place] [facility] 09/28/2020 09:40:45 Knee arthroscopy/surger y completed Barbara Muñoz [place] [facility] 09/28/2020 09:41:07 hammer toe operation completed Barbara Muñoz [place] [facility] 09/28/2020 09:41:41 excision of bunion completed Barbara Anika morataya [facility] 09/28/2020 09:42:06 total knee replacement completed Barbara Muñoz [facility] 09/28/2020 09:42:30 Imaging Results None recorded. Procedure Notes None recorded. Medical Equipment None Reported. Allergies Allergen ID Allergen Name Allergen Category Reaction Reaction Severity Criticality Documentation Date Start Date Code Code System Note Provider Name and Address Organization Details Recorded Time 360082 amitripty line medicatio n Not available Not available Not available 09/28/2020 704 RxNorm Barbara myers [facility] 0 09:32:01 317591 Tylenol with Codeine medicatio n Not available Not available Not available 09/28/2020 09976 6 RxNorm Barbara myers [facility] 0 09:32:30 640454 latex environme nt,medica tion Not available Not available Not available 09/28/2020 77298 91 RxNorm Barbara myers [facility] 0 09:32:38 262506 Pennsaid medicatio n Not available Not available Not available 09/28/2020 96471 1 RxNorm Barbara myers [facility] 0 09:32:45 Medications Name Sig Start Date [...] height Body mass index (BMI) Body weight Pain severity - 0-10 verbal numeric rating [Score] - Reported Provider Name and Address Organization Details Last Updated DateTime 10/17/2021 170.18 cm 34.5 kg/m2 38383.32 g 7 Jacqueline Darby [facility] 10/17/2021 13:47:28 Social History None recorded. Functional Status None recorded. Mental Status None recorded. Family History Nothing Reported. Medical History Condition Response Bipolar Disease N Coronary Artery Disease N Gout N Seizure Disorder N Atrial Fibrillation N Thyroid Disease N Head Trauma/Injury N Hernia N Depression N COPD N Anxiety Disorder N Acid Reflux (GERD) N Cancer N Stroke N Skin Disorder N High Cholesterol N Liver Disease N Rheumatoid Arthritis Y Headaches N Fibromyalgia Y Kidney Disease N Autoimmune Disease N Osteoarthritis Y Neurosurgery N DVT N Peptic Ulcer Disease N Anemia N Heart Attack (ME) N Diabetes N Cardiomyopathy N Bleeding Disorder [...] Diagnosis SNOMED-CT Code Diagnosis ICD10 Code Diagnosis IMO Codes Diagnosis Note [id number] Benny Brooks MD Martin [address] [place] [address] 09/28/2020 08:35:03 09/28/2020 10:16:28 Intervertebral disc disorder 16467155 M51.27 Lumbar radiculopathy 128 227270 M54.16 Spinal nehemiah nosis of lumbar region 19992588 M48.062 [id number] Benny Brooks MD Martin [address] [place] [address] 10/13/2020 13:04:15 10/13/2020 14:08:37 Lumbar radiculopathy 513090038 M54.16 [id number] MD Sara Dietz [address] [place] [address] 11/10/2020 14:54:45 11/10/2020 15:27:24 Lumbar radiculopathy 529739614 M54.16 [id number] MD Sara Dietz [address] [place] [address] 05/31/2021 13:03:16 05/31/2021 14:27:05 Lumbar radiculopathy 002849486 M54.16 [id number] MD Sara Griggs [address] [place] [address] 07/05/2021 09:37:08 07/05/2021 10:41:20 Spinal stenosis of lumbar region 79036555 M48.062 Lumbar radiculopathy 128 941283 M54.16 Lumbar spondylosis 28840 0009 M47.896 The recommende d procedure is discussed with the patient in detail. Questions related to the procedure are answered. [id number] MD Sara Dietz [address] [place] [address] 08/02/2021 13:09:57 08/02/2021 13:39:19 Lumbar spondylosis 822524258 M47.959 [id number] MD Sara Dietz [address] [place] [address] 08/24/2021 08:01:33 08/24/2021 08:29:49 Lumbar spondylosis 181931504 M47.458 [id number] MD Sara Dietz [address] [place] [address] 09/12/2021 13:01:13 09/12/2021 13:44:50 Lumbar spondylosis 055058357 M47.646 [id number] MD Sara Dietz [address] [place] [address] 10/17/2021 13:00:25 10/17/2021 14:03:28 Lumbar spondylosis 310716316 M47.896 Spinal nehemiah nosis of lumbar region 73789965 M48.062 Lumbar radiculopathy 128 872601 M54.16 [id number] Benny Brooks MD Martin [address] [place] [address] 11/07/2021 12:44:23 11/07/2021 13:41:33 Lumbar radiculopathy 809391366 M54.16 Health Concerns Section Related Observation LastModified by Organization Detai ls LastModified Time None Recorded Concern Status LastModified by Organization Details LastModified Time None Recorded Advance Directives Directive None Recorded Payers Insurance Date Sequence Insurance Name Policy Number Policy Diamond Covered Member ID Diamond Member ID Guarantor Name 11/04/2021 1 [facility] [id number] Joie Tavares [id number] Joie Tavares Notes Date Note Type Note Provider Name and Address Organization Details Recorded Time 1 text/html Follow-up (meds & injections)Reported by PatientHPIFor improvement, patient reportspain is getting worse.. For pain scores, patient reportscurrent pain- 7/10. Low back painReported by PatientHPIFor associated symptoms, patient reportsweakness. For functional assessment of adls, patient reportsunable to exercise on a regular basis secondary to pain.andcannot participate in recreation on a regular basis secondary to pain.but reportsliving independently.,able to bathe/groom without assistance.,walking without assistance or significant difficulty, andworking without restriction.. For duration, patient reportsworse in the morning. For context, patient reportsstarted without cause. For pain intensity, patient reportscurrent pain level: 7/10,average pain level: 8/10, andworst pain level: 10/10. For alleviating factors, patient reportsheat. For aggravating factors, patient reportssittingandrom. For prior imaging, patient reportsx-ray (lumbar)(07/19/2020 [facility] in [place], [place] For lumbar surgery, patient reportsnone. For interventional treatment history, patient reportslumbar medial branch nerve blocks: helped temporarilyandlumbar rfa: helped significantly(2016 dr espino at [facility]). For physical therapy, patient reportsfacility: ([facility])andresponse to therapy: no improvement in pain/symptoms. For medications history, patient reportsnsaids: (mobicibuprofentylenol),m uscle relaxants: (cyclobenaprine),neuropat hics: (gabapentinlyrica), andopioid pain medications: (tramadol). For prior pain management, patient reportsyes:(2015 dr espino). For location, (patient having low back that radiates into both buttocks and hips. the right side is worse than the left.). For quality, (patient states the right leg goes out without any pain.).ROS as noted in the HPI 09/12/2021 RFA Bilateral L3-L5; 50% pain relief ongoing. patient states that she had imaging on her kidney last week for a kidney stones. SADAF LOAIZA NP [address] [place] [address], [phone], [facility] - [facility] 10/17/2021 19:55:18 OBGyn Episode No OBEpisode recorded.
--- OUTSIDE RECORDS SUMMARY | 2025-10-28 12:59 | XMS_ITS | Encounter Summary ---
Author Organization [employer] ([place], [place], [place], [place], [place]) Address [address] [place] [address] Care Team Providers Care Head Start Teacher Name Role Phone Unavailable Primary Care Provider Unavailabl e Encounter Details Date Type Department Care Team (Late st Contact Info) Description 03/21/2021 Transcribed Document [facility] [place] [facility] [place] [address] ProviderLibrado MD [facility] [place] [address] Social History Tobacco Use Types [...] BARBARA NOYOLA, PT - 03/21/2021 12:00 EDT Party Plan Sales Agent Goals Other PT LTG Grid Goal #1 [...] BARBARA NOYOLA, PT - 03/21/2021 12:00 EDT [place] [facility] Charges Gait Training Each 15 Min : 1 PT Eval Low Complexity : 1 BARBARA NOYOLA, PT - 03/21/2021 12:00 EDT documented in this encounter Plan of Treatment Not on file documented as of this encounter Visit Diagnoses Not on filedocumented in this encounter
--- OUTSIDE RECORDS SUMMARY | 2025-10-28 12:59 | XMS_ITS | Encounter Summary ---
Author Organization [employer] ([place], [place], [place], [place], [place]) Address [address] [place] [address] Care Team Providers Care Instructor Substitute Cosmetology Name Role Phone Unavailable Primary Care Provider Unavailabl e Encounter Details Date Type Department Care Team (Late st Contact Info) Description 03/08/2021 Transcribed Document [facility] [place] Family Medicine [facility] [place] [address] ProviderLibrado MD [facility] [place] [address] Social History Tobacco Use Types [...] Source : Measured Height Entry Format : Christian Height, Feet : 5 ft(Converted to: 152 cm, 60 Inch) Height, Inches : 7 Inch(Converted to: 0 ft 7 Inch, 17.78 cm) Clinical Height : 170.18 cm Weight Source : Standing scale Weight Entry Format : Christian Clinical Dosing Weight : 95 kg Weight, Pounds : 209 lb Body Surface Area (BSA) : 2.06 m2 Body Mass Index : 32.8 kg/m2 (HI) Fleming Body Weight : 61 kg Deisy Collins [...] Deisy Collins RN - 03/08/2021 9:34 EDT [place] Suicide Severity Rating Scale (C-SSRS) CSSRS Past [...] : Sandip Tavares Emergency Contact #1 or [phone] Emergency Contact #1 Relationship : Spouse Emergency Contact #2 : . Emergency Contact #2 Phone Number : . Emergency Contact #2 Relationship : . Primary Language : Fijian Preferred Communication Mode : Verbal Communication Barrier : None Alternative Financing Specialist Needed : No Deisy Collins RN - [...]
--- OUTSIDE RECORDS SUMMARY | 2025-10-28 12:59 | XMS_ITS | Referral Summary ---
Author Organization [employer] ([place], [place], [place], [place], [place]) Address [address] [place] [address] Care Team Providers Care Before And After School Daycare Worker Name Role Phone Unavailable Primary Care [...]
--- OUTSIDE RECORDS SUMMARY | 2025-10-28 12:59 | XMS_ITS | Encounter Summary ---
Author Organization [employer] ([place], [place], [place], [place], [place]) Address [address] [place] [address] Care Team Providers Care Geotechnical Field Technician Name Role Phone Unavailable Primary Care Provider Unavailabl e Encounter Details Date Type Department Care Team (Late st Contact Info) Description 03/21/2021 Transcribed Document [facility] [place] [facility] [place] [address] ProviderLibrado MD [facility] [place] [address] Social History Tobacco Use Types [...] JOIE TAVARES/Sex: 1960 Female Med Rec #: [id number] Physician: DARY GAMEZ JR, JR, MD-ORT Financial #: [id number] Pt. Type: O Room/Bed: EAS/1 Admit/Disch: 03/21/21 04:39:00 - [place] [facility] [place] Attendance Entry 1 Entry 2 Entry 3 Case Attendee DARY GAMEZ JR, JR, WHITAKER, CARLY, Davis, Stephen J, RNFA MD-ORAlejandro DISCOVERY MANAGER-ANS Role Performed Surgeon/Proceduralist, DISCOVERY MANAGER/Nurse Strategic Account Manager NAILA First Time In 03/21/21 07:28:00 03/21/21 07:28:00 03/21/21 07:28:00 Time Out 03/21/21 09:15:00 03/21/21 09:15:00 03/21/21 09:15:00 Procedure Hip Total Anterior Hip Total Anterior Hip Total Anterior Approach(Right) Approach(Right) Approach(Right) Other Attendee Superficial Wound Closed By: Last Modified By: KAMERON CORREA RN LONGSWORTH, GARY, RN LONGSWORTH, GARY, RN 03/21/21 09:14:09 03/21/21 09:14:09 03/21/21 09:14:09 Entry 4 Entry 5 Entry 6 Case Attendee TIEN CLAY ST French, Daryl, REP-SNA OTHER, ATTENDEE #1 Role Performed Scrub, First Scrub, Second Cell Saver Clerical Warehouseman Time In 03/21/21 07:28:00 03/21/21 07:28:00 03/21/21 07:50:00 Time Out 03/21/21 09:15:00 03/21/21 09:15:00 03/21/21 09:15:00 Procedure Hip Total Anterior Hip Total Anterior Hip Total Anterior Approach(Right) Approach(Right) Approach(Right) Other Attendee RUBY GUPTA Superficial Wound Closed By: Last Modified By: KAMERON CORREA RN LONGSWORTH, GARY, RN LONGSWORTH, GARY, MAGALYS 03/21/21 09:14:09 03/21/21 09:14:09 03/21/21 07:43:00 Entry 7 Entry 8 Entry 9 Case Attendee OTHER, ATTENDEE #2 Sarah Biggs LONGSWORTH, GARY, RN Waiter/Waitress Tourist Class Role Performed Vendor Overnight Associate Clothing Supervisor, First Time In 03/21/21 07:28:00 03/21/21 07:35:00 03/21/21 07:28:00 Time Out 03/21/21 09:15:00 03/21/21 09:15:00 03/21/21 09:04:00 Procedure Hip Total Anterior Hip Total Anterior Hip Total Anterior Approach(Right) Approach(Right) Approach(Right) Other Attendee SAUNDRA NOONAN Superficial Wound Closed By: Last Modified By: KAMERON CORREA RN LONGSWORTH, GARY, RN LONGSWORTH, GARY RN 03/21/21 07:43:00 03/21/21 09:14:09 03/21/21 09:09:17 Entry 10 Case Attendee FAITH ESCOBEDO RN Role Performed Clothing Supervisor, Second Time In 03/21/21 09:04:00 Time Out 03/21/21 09:15:00 Procedure Hip Total Anterior Approach(Right) Other Attendee Superficial Wound Closed By: Last Modified By: KAMERON CORREA RN 03/21/21 09:14:09 [facility] IntraOp Case Attendance Audit 03/21/21 09:14:09 Linotyper: LONGGA Modifier: LONGGA 1 <+> Time Out [...] Procedure Hip Total Anterior Approach(Right) 03/21/21 09:09:17 Linotyper: LONGGA Modifier: LONGGA 9 <+> Time Out 9 <*> Procedure Hip Total Anterior Approach(Right) <+> 10 Case Attendee <+> 10 Role Performed <+> 10 Time In <+> 10 Procedure 03/21/21 07:55:56 Linotyper: LONGGA Modifier: LONGGA <+> 9 Case Attendee <+> 9 Role Performed <+> 9 Time In <+> 9 Procedure 03/21/21 07:53:41 Linotyper: LONGGA Modifier: LONGGA 6 <*> Time In 03/21/21 07:28:00 6 <*> Procedure Hip Total Anterior Approach(Right) 03/21/21 07:53:18 Linotyper: LONGGA Modifier: LONGGA <+> 1 Procedure 2 <*> Procedure Hip Total Anterior Approach(Right) 3 <*> Procedure Hip Total Anterior Approach(Right) 4 <*> Procedure Hip Total Anterior Approach(Right) 5 <*> Procedure Hip Total Anterior Approach(Right) 6 <+> Time In 6 <*> Procedure Hip Total Anterior Approach(Right) 7 <*> Procedure Hip Total Anterior Approach(Right) 8 <*> Procedure Hip Total Anterior Approach(Right) 03/21/21 07:43:00 Linotyper: LONGGA Modifier: LONGGA <+> 1 Time In [...] [facility] IntraOp Case Times Audit 03/21/21 09:14:07 Linotyper: LONGGA Modifier: LONGGA <+> 1 Out Room Time <+> 1 Stop Time 03/21/21 09:13:29 Linotyper: LONGGA Modifier: LONGGA <+> 1 Stop Time 03/21/21 07:53:13 Linotyper: LONGGA Modifier: LONGGA <+> 1 Start Time [...] IntraOp Dressing and Packing Audit 03/21/21 08:58:36 Linotyper: MARY Modifier: GIRISHGA 1 <-> Wound Dressing Item Occlusive dressing 1 <*> Other Comments PRINEO [facility] IntraOp Fire Risk Assessment Entry 1 [...] IntraOp Fire Risk Assessment Audit 03/21/21 08:09:15 Linotyper: MARY Modifier: LONGGA <+> 1 Fire Risk Assessment Verified By <+> 1 Fire Risk Assessment Verified Date/Time <+> 1 High Risk Protocol Implemented [facility] IntraOp General Case Flight Engineer Manager 1 Case Information [place] [facility] [place] 1 Room Verified Yes Wound [...] D HIP STEM ACCOLADE II Identification 48MM [id number] Description Implant Quantity 1 1 1 Implant Site RIGHT HIP RIGHT HIP RIGHT HIP Implant Identification Model Number Implant Identification Serial Number Implant [id number] Identification Lot Number Implant Nikita Ortho Cap Aimwell:Aimwell Nikita:Nikita Identification Orthopaedics Orthopaedics Track Service Worker Name: Implant [id number] Identification Catalog Number Implant Size Implant Has an Yes Yes Yes Expiration Date Implant Expiration 10/18/25 11/02/25 12/23/25 Date Wasted Radioactive Material Time Implanted Tissue Implant Continue for Tissue Implant Documentation Tissue Identification Number Graft Prep Per Track Service Worker Instructions: Tissue Preparation Method: Reconstitution Solution: Reconstitution Solution Lot Number Reconstitution Solution Expiration Date: Thawing Solution Thawing Solution Lot Number Thawing Solution Expiration Date Preparation Materials, Other Preparation Materials, Other Lot Number Preparation Materials, Other Expiration Date Tissue Prepared/Processed By Track Service Worker Paperwork Completed Implant Type Comment Last Modified By: KAMERON CORREA RN LONGSWORTH, GARY, RN LONGSWORTH, GARY, RN 03/21/21 08:19:39 03/21/21 08:20:33 03/21/21 08:43:38 Entry 4 Type Implant (Synthetic) Implant Log Implant Type Hardware Tissue Implant Type Implant HEAD FEM BIOLOX V40 Identification [id number] Description Implant Quantity 1 Implant Site RIGHT HIP Implant Identification Model Number Implant Identification Serial Number Implant [id number] Identification Lot Number Implant Aimwell:Nikita Identification Orthopaedics Track Service Worker Name: Implant [id number] Identification Catalog Number Implant Size Implant Has an Yes Expiration Date Implant Expiration 09/27/25 Date Wasted Radioactive Material Time Implanted Tissue Implant Continue for Tissue Implant Documentation Tissue Identification Number Graft Prep Per Track Service Worker Instructions: Tissue Preparation Method: Reconstitution Solution: Reconstitution Solution Lot Number Reconstitution Solution Expiration Date: Thawing Solution Thawing Solution Lot Number Thawing Solution Expiration Date Preparation Materials, Other Preparation Materials, Other Lot Number Preparation Materials, Other Expiration Date Tissue Prepared/Processed By Track Service Worker Paperwork Completed Implant Type Comment Last Modified By: KAMERON CORREA RN 03/21/21 08:47:34 [facility] IntraOp Implant Log Audit 03/21/21 08:47:34 Linotyper: MARY Modifier: MARY <+> 4 Implant Identification Description <+> 4 Implant Identification Lot Number <+> 4 Implant Identification Track Service Worker Name: <+> 4 Implant Expiration Date <+> 4 Implant Site <+> 4 Implant Quantity <+> 4 Implant Identification Catalog Number <+> 4 Implant Type <+> 4 Implant Has an Expiration Date <+> 4 Type 03/21/21 08:43:38 Linotyper: MARY Modifier: LONGGA <+> 3 Implant Identification Description <+> 3 Implant Identification Lot Number <+> 3 Implant Identification Track Service Worker Name: <+> 3 Implant Expiration Date <+> 3 Implant Site <+> 3 Implant Quantity <+> 3 Implant Identification Catalog Number <+> 3 Implant Type <+> 3 Implant Has an Expiration Date <+> 3 Type 03/21/21 08:20:33 Linotyper: LONGGA Modifier: LONGGA <+> 2 Implant Identification Description <+> 2 Implant Identification Lot Number <+> 2 Implant Identification Track Service Worker Name: <+> 2 Implant Expiration Date <+> [...] 1000units/ml SEALR AQUAMANTYS BIPLR CLONIDINE-10ML 10ml - [id number] Combo Med List 1 - Combo Med Time Administered Route of CELLSAVER BACKUP SAWYER INJECTION, RIGHT HIP Administration Dose Dose 94180 0.8 Unit of Measure units ml Volume 30ML Administered By OTHER, ATTENDEE #1 DARY GAMEZ JR, JR, FRANCO REIS, DARY REIS, -ORT -ORT Procedure Irrigation Irrigant Volume In Irrigant Volume Out Last Modified By: KAMERON CORREA RN LONGSWORTH, GARY, RN LONGSWORTH, GARY, RN 03/21/21 08:02:57 03/21/21 08:02:57 03/21/21 08:02:57 Entry 4 Entry 5 Entry 6 Medication/Irrigant Ketorolac 30mg/ml vial Naropin 0.5% 30ml vial Xylocaine 1% w/ - [id number] epinephrine 1:200,000 30ml vial - [id number] Combo Med List 1 - Combo Med 1 - Combo Med 1 - Combo Med Time Administered Route of INJECTION, RIGHT HIP INJECTION, RIGHT HIP INJECTION, RIGHT HIP Administration Dose Dose 1 25 23.2 Unit of Measure ml ml ml Volume Administered By DARY GAMEZ JR, JR, HUFF JR, WALLACE JR, HUFF JR, WALLACE JR, MD-ORAlejandro WIGN Procedure Irrigation Irrigant Volume In Irrigant Volume [...] Yes Checked Positioning Devices Arm Board, Table, Amlin, Safety Strap, Chest Device Position HANA TABLE; PERINEAL POST Positioned By SIS SHAH CRNA-ANS, DARY GAMEZ JR, JR, MD-ORT, KAMERON CORREA RN, Mati Fuentes SUPERVISOR ROLLING ROOM Position Verified Positioning Yes Verified by Anesthesia [...] [facility] IntraOp Skin Prep Audit 03/21/21 10:21:05 Linotyper: MARY Modifier: LONGGA 1 <*> Prep Agents [...] [facility] IntraOp Surgical Procedures Audit 03/21/21 09:13:33 Linotyper: LONGGA Modifier: LONGGA <+> 1 Stop [facility] IntraOp Temp Regulation Devices Entry 1 Temp Regulation Temperature Conductive warming Regulation Device device placed over patient Temperature 4764 Regulation Device Serial/Unit Number Temperature Upper body Regulation Site Temperature Device 43 Setting Temperature SIS SHAH, Regulation Device DISCOVERY MANAGER-ANS Applied by Last Modified By: KAMERON CORREA [...] Fluoroscopy Fluoroscopy Type C-Arm Site RIGHT HIP Net Ui Developer Name Sarah Biggs, Waiter/Waitress Tourist Class Protective Devices Yes Used Last Modified By: KAMERON CORREA RN 03/21/21 07:56:34 Case Comments <None> Finalized By: KAMERON CORREA, RN Document Signatures Signed By: KAMERON CORREA RN 03/21/21 09:14 KAMERON CORREA RN 03/21/21 10:21 Unfinalized History Date/Time Username Reason for Unfinalizing Freetext Reason for Unfinalizing 03/21/21 10:20 LONGGA Correct Documentation documented in this encounter Plan of Treatment Not on file documented as of this encounter Visit Diagnoses Not on filedocumented in this encounter
--- OUTSIDE RECORDS SUMMARY | 2025-10-28 12:59 | XMS_ITS | Encounter Summary ---
Author Organization [employer] ([place], [place], [place], [place], [place]) Address [address] [place] [address] Care Team Providers Care Cash Manager Name Role Phone Unavailable Primary Care Provider Unavailabl e Encounter Details Date Type Department Care Team (Late st Contact Info) Description 03/22/2021 Transcribed Document [facility] [place] [address] [place] [address] ProviderLibrado MD [address] [place] [address] Social History Tobacco Use Types Packs/Day Years Used Date Smoking Tobacco: Never Assessed Comments Unknown Sex and Gender Information Value Date Recorded Sex Assigned at Not on file Legal Sex Female 1:10 PM CDT Gender Identity Not on file Sexual Orientation Not on file documented as of this encounter Miscellaneous Notes * Cerner Conversion Note - Librado Limon MD - 03/22/2021 12:08 PM CDT Patient: JOIE [...] Peanuts Tingling Cats Congestion chlorhexidine topical Rash Dexemilk Taperpak Migraine Dilaudid Slow to wake up after anesthesia Mold Congestion Pennsaid Itching tyllenol 3 headache Current medications: (Selected) Inpatient Medications Ordered Benadryl: 25 mg, Oral, Tab, On-CALL, PRN for Other (See Comment), Routine, Start 03/21/21 18:50:00 EDT, 03/21/21 18:50:00 EDT Chloraseptic Menthol 1.4% topical spray: 5 [place], Oral, [place], Q2H, PRN for Sore Throat, Routine, Start [...] constipation, # 60 Tab, 0 Refill(s), Pharmacy: [facility], 170.18, cm, 03/21/21 10:42:00 EDT, [...] Oral, Q4H phenol 1.4% throat spray 5 [place], Oral, Q2H promethazine 25 mg tab 12.5 [...] constipation, # 60 Tab, 0 Refill(s), Pharmacy: [facility], 170.18, cm, 03/21/21 10:42:00 EDT, [...]
--- OUTSIDE RECORDS SUMMARY | 2025-10-28 12:59 | XMS_ITS | Encounter Summary ---
Author Organization [employer] ([place], [place], [place], [place], [place]) Address [address] [place] [address] Care Team Providers Care Patient Clerical Assistant Name Role Phone Unavailable Primary Care Provider Unavailabl e Encounter Details Date Type Department Care Team (Late st Contact Info) Description 03/21/2021 Transcribed Document [facility] [place] [facility] [place] [address] ProviderLibrado MD [facility] [place] [address] Social History Tobacco Use Types [...] Low Spiritual Framework : Integrated, provides strength/resource Sabianism Preference : Religious DAYNA OCONNOR Chaplain-Non Cert - 03/21/2021 7:29 EDT Electronically signed by Kristina Dobbs Conversion Elevator Constructor Electric Cerner at 03/21/2023 1:15 PM CDT documented in this encounter Plan of Treatment Not on file documented as of this encounter Visit Diagnoses Not on filedocumented in this encounter
--- OUTSIDE RECORDS SUMMARY | 2025-10-28 12:59 | XMS_ITS | Encounter Summary ---
Author Organization [employer] ([place], [place], [place], [place], [place]) Address [address] [place] [address] Care Team Providers Care Manager Nursing Home Name Role Phone Unavailable Primary Care Provider Unavailabl e Encounter Details Date Type Department Care Team (Late st Contact Info) Description 03/22/2021 Transcribed Document [facility] [place] [facility] [place] [address] ProviderLibrado MD [facility] [place] [address] Social History Tobacco Use Types Packs/Day Years Used Date Smoking Tobacco: Never Assessed Comments Unknown Sex and Gender Information Value Date Recorded Sex Assigned at Not on file Legal Sex Female 1:10 PM CDT Gender Identity Not on file Sexual Orientation Not on file documented as of this encounter Miscellaneous Notes * Cerner Conversion Note - Librado Limon MD - 03/22/2021 11:28 AM CDT Final Discharge Planning Entered On: 03/22/2021 11:29 EDT Performed On: 03/22/2021 11:28 EDT by LASHAE LUGO RN Final Discharge Planning Discharge Arrangements : Patient Post-Acute Information Patient Name: JOIE TAVARES Gender: Female : [birth year] Age: 60 Years Phillip Referral(s): Service: Organization: Business Address: Phone Number: [facility] [address], [place], [address] Patient Offered Choice/Affiliations Explained : [...]
--- OUTSIDE RECORDS SUMMARY | 2025-10-28 12:59 | XMS_ITS | Encounter Summary ---
Author Organization [employer] ([place], [place], [place], [place], [place]) Address [address] [place] [address] Care Team Providers Care Bilingual Sales Consultant Name Role Phone Unavailable Primary Care Provider Unavailabl e Encounter Details Date Type Department Care Team (Late st Contact Info) Description 03/22/2021 Transcribed Document [facility] [place] [facility] [address] ProviderLibrado [place] [address] Social History Tobacco Use Types [...] Limon MD - 03/22/2021 12:43 PM CDT [place] [id number] JOIE HAQ :1960 Visit Time:03/21/2021 Your Visit [...] Instructions From Your Care Team Community Services: [facility] Home Health Services: [facility] [...] When 04/03/2021 09:15 AM EDT Where: [address] [facility] [address] [place] [address]- Medications What How Much When Instructions Next Dose aspirin (aspirin 81 mg oral delayed release tablet) 1 Tablet(s) Oral Two Times A Day Duration: 45 Day(s) cefadroxil (cefadroxil 500 mg oral capsule) 1 Capsule(s) Oral Every 12 hours Duration: 6 Day(s) docusate (docusate sodium 100 mg oral tablet) 1 Tablet(s) Oral Two Times A Day as needed for for constipation Pickup at [facility] oxyCODONE (oxyCODONE 5 mg oral [...] as needed for migraine headache Pharmacy Information [facility]: [address] [phone] Take your medications faithfully. Do NOT skip [...] Barley. Bulgur wheat. Millet. Bran muffins. Popcorn. [place] wafer crackers. Vegetables Sweet potatoes. Spinach. Kale. Artichokes. Cabbage. Broccoli. Green peas. Carrots. Squash. Fruits Berries. Pears. Apples. Oranges. Avocados. Prunes and raisins. Dried figs. Meats and Other Protein Sources [place], kidney, romero, and soy beans. Split peas. [...] has 11 g of protein. ??? [place] seeds ??? 1 oz has 5.5 g [...] floor. ??? Place frequently used items in bcfn-am-spmge places ??? Keep electrical cables out of [...] ??? Using the bathroom. ??? Using household forging engineer or toxic chemicals. ??? Touching or taking [...] through the local health department and the [place] Department for Public Health. Those organizations are [...] and need to call 911, notify the hoop driving machine operator helper that you have, or think [...] clean your hands with an alcohol-based hand dragline engineer that contains at least 60% alcohol. Clean your hands often. ??? Wash hands: Wash your hands often with soap and water for at least 20 seconds when visibly dirty. This is especially important after blowing your nose, coughing or sneezing, and going to the bathroom, and before eating or preparing food. ??? Hand dragline engineer: Use an alcohol-based hand dragline engineer with at least 60% alcohol, covering all [...] and water or put them in the senior net architect. Clean all high-touch surfaces every day. Clean [...] or body fluids on them. ??? Household forging engineer and disinfectants: Clean the area or item [...] list of disinfectants can be found here: https://www.epa.gov/pesticide-registration/ricr-x-pjwuxbaqhferk-eyx-zcrgwmf-pl rs-cov-2 ondansetron (oral) (on ELAINA se rc) [...] may report side effects to FDA at 3-025-SPA-8178. What other drugs will affect ondansetron? Ondansetron [...] interact with ondansetron. This includes prescription and xcem-ioe-qohjizl medicines, vitamins, and herbal products. Give a [...] to ensure that the information provided by [employer]. ('[employer]') is accurate, up-to-date, and complete, but no guarantee is made to that effect. Drug information contained herein may be time sensitive. [employer] information has been compiled for use by healthcare practitioners and consumers in the [place] and therefore [employer] does not warrant that uses outside of the [place] are appropriate, unless specifically indicated otherwise. [employer] drug information does not endorse drugs, diagnose patients or recommend therapy. [employer] drug information is an informational resource designed [...] effective or appropriate for any given patient. [facility] does not assume any responsibility for any aspect of healthcare administered with the aid of information [facility] provides. The information contained herein is not intended to cover all possible uses, directions, precautions, warnings, drug interactions, allergic reactions, or adverse effects. If you have questions about the drugs you are taking, check with your doctor, nurse or pharmacist. Copyright 7808-1602 [employer]. Version: 13.01. Revision Date: 09/20/2016. cephalexin (sef a GUILHERME in) Keshandra What is the most important information I [...] may report side effects to FDA at 8-451-NLV-2715. What other drugs will affect cephalexin? Tell your doctor about all your other medicines, especially: ?? metformin; or ?? probenecid. This list is not complete. Other drugs may affect cephalexin, including prescription and wtyk-ghb-pwawdgt medicines, vitamins, and herbal products. Not all [...] to ensure that the information provided by [employer]. ('[employer]') is accurate, up-to-date, and complete, but no guarantee is made to that effect. Drug information contained herein may be time sensitive. [employer] information has been compiled for use by healthcare practitioners and consumers in the [place] and therefore [employer] does not warrant that uses outside of the [place] are appropriate, unless specifically indicated otherwise. [employer] drug information does not endorse drugs, diagnose patients or recommend therapy. [employer] drug information is an informational resource designed [...] effective or appropriate for any given patient. [employer] does not assume any responsibility for any aspect of healthcare administered with the aid of information [employer] provides. The information contained herein is not intended to cover all possible uses, directions, precautions, warnings, drug interactions, allergic reactions, or adverse effects. If you have questions about the drugs you are taking, check with your doctor, nurse or pharmacist. Copyright 5839-6804 [employer]. Version: 10.03. Revision Date: 12/04/2020. acetaminophen (oral) (a SEET a MIN oh tommy) Actamin, Anacin AF, Aurophen, Bromo Bartlett, Children's Tylenol, Mapap, M-Pap, Pharbetol, Silapap Childrens, [...] is a pain reliever and a fever advertising sales representative. There are many brands and forms of [...] may report side effects to FDA at 8-844-ANL-7301. What other drugs will affect acetaminophen? Other drugs may affect acetaminophen, including prescription and pakh-fcb-emfgspc medicines, vitamins, and herbal products. Tell your [...] to ensure that the information provided by [employer]. ('[employer]um') is accurate, up-to-date, and complete, but no guarantee is made to that effect. Drug information contained herein may be time sensitive. [employer] information has been compiled for use by healthcare practitioners and consumers in the [place] and therefore [employer] does not warrant that uses outside of the [place] are appropriate, unless specifically indicated otherwise. [employer] drug information does not endorse drugs, diagnose patients or recommend therapy. [employer] drug information is an informational resource designed [...] effective or appropriate for any given patient. [employer] does not assume any responsibility for any aspect of healthcare administered with the aid of information [employer] provides. The information contained herein is not intended to cover all possible uses, directions, precautions, warnings, drug interactions, allergic reactions, or adverse effects. If you have questions about the drugs you are taking, check with your doctor, nurse or pharmacist. Copyright 2490-1166 [employer]. Version: 21.04. Revision Date: 07/07/2020. meloxicam (oral/injection) [...] may report side effects to FDA at 8-894-GYQ-4545. What other drugs will affect meloxicam? Ask [...] drugs may affect meloxicam, including prescription and jtpt-hhv-uykdlag medicines, vitamins, and herbal products. Not all [...] to ensure that the information provided by [employer]. ('[employer]') is accurate, up-to-date, and complete, but no guarantee is made to that effect. Drug information contained herein may be time sensitive. [employer] information has been compiled for use by healthcare practitioners and consumers in the [place] and therefore [employer] does not warrant that uses outside of the [place] are appropriate, unless specifically indicated otherwise. [employer] drug information does not endorse drugs, diagnose patients or recommend therapy. [employer] drug information is an informational resource designed [...] effective or appropriate for any given patient. [employer] does not assume any responsibility for any aspect of healthcare administered with the aid of information [employer] provides. The information contained herein is not intended to cover all possible uses, directions, precautions, warnings, drug interactions, allergic reactions, or adverse effects. If you have questions about the drugs you are taking, check with your doctor, nurse or pharmacist. Copyright 3923-9978 [employer]. Version: 14.. Revision Date: 10/03/2020. docusate (oral/rectal) [...]
--- OUTSIDE RECORDS SUMMARY | 2025-10-28 12:59 | XMS_ITS | Encounter Summary ---
Author Organization [employer] ([place], [place], [place], [place], [place]) Address [address] [place] [address] Care Team Providers Care Warp Hand Name Role Phone Unavailable Primary Care Provider Unavailabl e Encounter Details Date Type Department Care Team (Late st Contact Info) Description 03/08/2021 Transcribed Document [facility] [place] [facility] [place] [address] ProviderLibrado MD [facility] [place] [address] Social History Tobacco Use Types Packs/Day Years Used Date Smoking Tobacco: Never Assessed Comments Unknown Sex and Gender Information Value Date Recorded Sex Assigned at Not on file Legal Sex Female 1:10 PM CDT Gender Identity Not on file Sexual Orientation Not on file documented as of this encounter Miscellaneous Notes * Cerner Conversion Note - Librado Limon MD - 03/08/2021 9:34 AM CDT Meds to [...]
--- OUTSIDE RECORDS SUMMARY | 2025-10-28 12:59 | XMS_ITS | Encounter Summary ---
Author Organization [employer] ([place], [place], [place], [place], [place]) Address [address] [place] [address] Care Team Providers Care Research Archaeologist Name Role Phone Unavailable Primary Care Provider Unavailabl e Encounter Details Date Type Department Care Team (Late st Contact Info) Description 03/22/2021 Transcribed Document [facility] [place] Family Medicine [address] [place] [address] ProviderLibrado MD [address] [place] [address] Social History Tobacco Use Types Packs/Day Years Used Date Smoking Tobacco: Never Assessed Comments Unknown Sex and Gender Information Value Date Recorded Sex Assigned at Not on file Legal Sex Female 1:10 PM CDT Gender Identity Not on file Sexual Orientation Not on file documented as of this encounter Miscellaneous Notes * Cerner Conversion Note - Librado ProviderMD - 03/22/2021 11:38 AM CDT Stroke/Warfarin Instructions Entered On: 03/22/2021 11:38 EDT Performed On: 03/22/2021 11:38 EDT by Danna Avila RN Stroke/Warfarin Instructions Stroke/TIA Discharge Ins : N/A Warfarin Discharge Ins : N/A Danna Avila RN - 03/22/2021 11:38 EDT Electronically signed by Kristina Dobbs Conversion Corporate Compliance Manager Cerner at 03/21/2023 1:05 PM CDT documented in this encounter Plan of Treatment Not on file documented as of this encounter Visit Diagnoses Not on filedocumented in this encounter
--- OUTSIDE RECORDS SUMMARY | 2025-10-28 12:59 | XMS_ITS | Encounter Summary ---
Author Organization [employer] ([place], [place], [place], [place], [place]) Address [address] [place] [address] Care Team Providers Care Ad Taker Name Role Phone Unavailable Primary Care Provider Unavailabl e Encounter Details Date Type Department Care Team (Late st Contact Info) Description 03/22/2021 Transcribed Document [facility] [place] [facility] [place] [address] ProviderLibrado MD [facility] [place] [address] Social History Tobacco Use Types [...] Policy Numbers : Insurance 1 Health Plan: [facility] Policy Number: [id number] Authorization Number: [id number] Insurance Primary Name : [facility] Policy Number: [id number] Authorization Status-Primary : Opo status approv Authorized Service Begin Date-Primary : 03/21/2021 EDT Observation Authorization Nbr-Primary : [id number] Authorization Comments-Primary : [facility] auth approved for outpt per Star note Historical Authorization Comments-Primary : No Authorization Comments Found CONRAD COWAN RN-Utilization Review - 03/22/2021 8:25 EDT documented in this encounter Plan of Treatment Not on file documented as of this encounter Visit Diagnoses Not on filedocumented in this encounter
--- OUTSIDE RECORDS SUMMARY | 2025-10-28 12:59 | XMS_ITS | Encounter Summary ---
Author Organization [employer] ([place], [place], [place], [place], [place]) Address [address] [place] [address] Care Team Providers Care Cheese Factory Worker Name Role Phone Unavailable Primary Care Provider Unavailabl e Encounter Details Date Type Department Care Team (Late st Contact Info) Description 03/22/2021 Transcribed Document [facility] [place] [address] [place] [address] ProviderLibrado MD [address] [place] [address] Social History Tobacco Use Types [...]
--- OUTSIDE RECORDS SUMMARY | 2025-10-28 12:59 | XMS_ITS | Encounter Summary ---
Author Organization [employer] ([place], [place], [place], [place], [place]) Address [address] [place] [address] Care Team Providers Care Youth Services Specialist Name Role Phone Unavailable Primary Care Provider Unavailabl e Encounter Details Date Type Department Care Team (Late st Contact Info) Description 03/21/2021 Transcribed Document [facility] [place] [facility] [place] [address] ProviderLibrado MD [facility] [place] [address] Social History Tobacco Use [...] JOIE TAVARES/Sex: 1960 Female Med Rec #: [id number] Physician: DARY GAMEZ JR, JR, MD-ORT Financial #: [id number] Pt. Type: O Room/Bed: EAS/1 Admit/Disch: 03/21/21 04:39:00 - Institution: [facility] PACU Case Times Entry 1 In PACU I 03/21/21 09:16:00 Ready for PACU 03/21/21 10:10:00 Discharge Discharge from PACU 03/21/21 10:10:00 I Last Modified By: MAN GOODMAN 03/21/21 10:10:56 [facility] PACU Case Times Audit 03/21/21 10:10:56 Multiple Games Dealer: VALERIA Modifier: COLEMAM <+> 1 Ready for PACU Discharge <+> 1 Discharge from PACU I Finalized By: MAN GOODMAN Document Signatures Signed By: MAN GOODMAN 03/21/21 10:11 Electronically signed by Dilia [facility] Conversion Electrical Engineering Designer Cerner at 03/21/2023 1:17 PM CDT documented in this encounter Plan of Treatment Not on file documented as of this encounter Visit Diagnoses Not on filedocumented in this encounter
--- OUTSIDE RECORDS SUMMARY | 2025-10-28 12:59 | XMS_ITS | Encounter Summary ---
Author Organization [employer] ([place], [place], [place], [place], [place]) Address [address] [place] [address] Care Team Providers Care Hockey Instructor Name Role Phone Unavailable Primary Care Provider Unavailabl e Encounter Details Date Type Department Care Team (Late st Contact Info) Description 03/22/2021 Transcribed Document [facility] [place] [facility] [place] [address] ProviderLibrado MD [address] [place] [address] Social History Tobacco Use Types Packs/Day [...] 13:07 EDT Transporter Signature : Columba Gold [facility] Unit Coord Patient Disposition, General : Discharge [...] HECTOR BECKWITH RN - 03/22/2021 13:23 EDT Electronically signed by Dilia [facility] Conversion Freight Car Inspector Cerner at 03/21/2023 1:08 PM CDT documented in this encounter Plan of Treatment Not on file documented as of this encounter Visit Diagnoses Not on filedocumented in this encounter
--- OUTSIDE RECORDS SUMMARY | 2025-10-28 12:59 | XMS_ITS | Encounter Summary ---
Author Organization [employer] ([place], [place], [place], [place], [place]) Address [address] [place] [address] Care Team Providers Care Assembler Production Line Name Role Phone Unavailable Primary Care Provider Unavailabl e Encounter Details Date Type Department Care Team (Late st Contact Info) Description 01/25/2021 Transcribed Document [facility] [place] [facility] [place] [address] ProviderLibrado MD [place] [address] Social History Tobacco Use Types [...] - Librado ProviderMD - 01/25/2021 11:29 AM NETWORK DESKTOP SUPPORT SPECIALIST PAT Adult Entered On: 01/25/2021 11:35 [...] Source : Measured Height Entry Format : [place] Height, Feet : 5 ft(Converted to: 152 cm, 60 Inch) Height, Inches : 7 Inch(Converted to: 0 ft 7 Inch, 17.78 cm) Clinical Height : 170.18 cm Weight Source : Standing scale Weight Entry Format : [place] Clinical Dosing Weight : 99.09 kg Weight, Pounds : 218 lb Body Surface Area (BSA) : 2.1 m2 Body Mass Index : 34.2 kg/m2 (HI) [place] Body Weight : 61 kg Deisy Collins [...] Updated: 07/06/2018 10:27:50 EDT by Irma Holloway, RN) Alcohol: Alcohol Use History Yes. Date/Time of Last Drink: rare. (Last Updated: 09/13/2015 14:10:46 EDT by Hanh Thorpe RN) Alcohol Use History No. (Last Updated: 01/25/2021 11:31:18 EST by Deisy Collins RN) Substance Abuse: Drug Use Hx: No. Use in Last 12 Months: No. (Last Updated: 09/13/2015 14:10:50 EDT by Hanh Thorpe, MAGALYS) Drug Use Hx: No. Use in Last [...] Deisy Collins RN - 01/25/2021 11:29 EST [place] Suicide Severity Rating Scale (C-SSRS) CSSRS Past [...] : Sandip Tavares Emergency Contact #1 or [phone] Emergency Contact #1 Relationship : Spouse Emergency Contact #2 : . Emergency Contact #2 Phone Number : . Emergency Contact #2 Relationship : . Primary Language : Kyrgyz Preferred Communication Mode : Verbal Communication Barrier : None Riveter Pneumatic Needed : No Deisy Collins RN - [...]
--- OUTSIDE RECORDS SUMMARY | 2025-10-28 12:59 | XMS_ITS | Encounter Summary ---
Author Organization [employer] ([place], [place], [place], [place], [place]) Address [address] [place] [address] Care Team Providers Care Modeling Teacher Name Role Phone Unavailable Primary Care Provider Unavailabl e Encounter Details Date Type Department Care Team (Late st Contact Info) Description 03/22/2021 Transcribed Document [facility] [place] Medicine [facility] [place] [address] ProviderLibrado MD [facility] [place] [address] Social History Tobacco Use Types [...] : Sandip Tavares Emergency Contact #1 or [phone] Emergency Contact #1 Relationship : Spouse Emergency [...] Referral sent via Norberto. patient also choose [facility] for her outpatient PT. DME: patient has a Frw and raised toilet seat. CM: no further CM needs identifed. DOC: designation of choice sined and placed in chart. TRANS: to transport patient home. LASHAE LUGO RN - 03/22/2021 11:23 EDT Electronically signed by Kristina Dobbs Conversion Public Health Epidemiologist Cerner at 03/21/2023 1:18 PM CDT documented in this encounter Plan of Treatment Not on file documented as of this encounter Visit Diagnoses Not on filedocumented in this encounter
--- OUTSIDE RECORDS SUMMARY | 2025-10-28 12:59 | XMS_ITS | Encounter Summary ---
Author Organization [employer] ([place], [place], [place], [place], [place]) Address [address] [place] [address] Care Team Providers Care Solutions Delivery Consultant Name Role Phone Unavailable Primary Care Provider Unavailabl e Encounter Details Date Type Department Care Team (Late st Contact Info) Description 03/22/2021 Transcribed Document [facility] [place] [address] [place] [address] ProviderLibrado MD [address] [place] [address] Social History Tobacco Use Types [...] Barley. Bulgur wheat. Millet. Bran muffins. Popcorn. [place] wafer crackers. Vegetables Sweet potatoes. Spinach. Kale. Artichokes. Cabbage. Broccoli. Green peas. Carrots. Squash. Fruits Berries. Pears. Apples. Oranges. Avocados. Prunes and raisins. Dried figs. Meats and Other Protein Sources [place], kidney, romero, and soy beans. Split peas. [...] humza has 11 g of protein. ?? [place] seeds ??? 1 oz has 5.5 g [...] floor. ?? Place frequently used items in natp-je-ysbyo places ?? Keep electrical cables out of [...] ?? Using the bathroom. ?? Using household bow maker machine tender or toxic chemicals. ?? Touching or taking [...] through the local health department and the [place] Department for Public Health. Those organizations are [...] and need to call 911, notify the telegraph operator that you have, or think you [...] clean your hands with an alcohol-based hand md allergy immunology that contains at least 60% alcohol. Clean your hands often. ??? Wash hands: Wash your hands often with soap and water for at least 20 seconds when visibly dirty. This is especially important after blowing your nose, coughing or sneezing, and going to the bathroom, and before eating or preparing food. ??? Hand md allergy immunology: Use an alcohol-based hand md allergy immunology with at least 60% alcohol, covering all [...] and water or put them in the clinical training specialist. Clean all high-touch surfaces every day. Clean [...] or body fluids on them. ??? Household bow maker machine tender and disinfectants: Clean the area or item [...] list of disinfectants can be found here: https://www.epa.gov/pesticide-registration/prbz-j-oktkynkubqlgl-rrb-bnrdmrt-zn rs-cov-2 documented in this encounter Plan of Treatment Not on file documented as of this encounter Visit Diagnoses Not on filedocumented in this encounter
--- OUTSIDE RECORDS SUMMARY | 2025-10-28 12:59 | XMS_ITS | Encounter Summary ---
Author Organization [employer] ([place], [place], [place], [place], [place]) Address [address] [place] [address] Care Team Providers Care Seismic Prospecting Supervisor Name Role Phone Unavailable Primary Care Provider Unavailabl e Encounter Details Date Type Department Care Team (Late st Contact Info) Description 03/22/2021 Transcribed Document [facility] [place] [facility] [place] [address] ProviderLibrado MD [address] [place] [address] Social History Tobacco Use Types Packs/Day Years Used Date Smoking Tobacco: Never Assessed Comments Unknown Sex and Gender Information Value Date Recorded Sex Assigned at Not on file Legal Sex Female 1:10 PM CDT Gender Identity Not on file Sexual Orientation Not on file documented as of this encounter Miscellaneous Notes * Cerner Conversion Note - Librado Limon MD - 03/22/2021 11:13 AM CDT Patient: JOIE [...] [place] Itching tyllenol 3 headache Thank you, Darek Elena, PharmD documented in this encounter Plan of Treatment Not on file documented as of this encounter Visit Diagnoses Not on filedocumented in this encounter
--- OUTSIDE RECORDS SUMMARY | 2025-10-28 12:59 | XMS_ITS | Encounter Summary ---
Author Organization [employer] ([place], [place], [place], [place], [place]) Address [address] [place] [address] Care Team Providers Care Loader Operator/Ground Leader Name Role Phone Unavailable Primary Care Provider Unavailabl e Encounter Details Date Type Department Care Team (Late st Contact Info) Description 03/22/2021 Transcribed Document [facility] [place] [facility] [place] [address] ProviderLibrado MD [facility] [place] [address] Social History Tobacco Use Types [...] Patient was discharged home follow up from [facility] on 03/22/21 having met 3/3 acute therapy goals. Patient will have assistance at home from family members as needed. At time of discharge patient was independent with bed mobility, SBA for transfers with RWx, ambulated ~ 200' with RWx SBA, safely ascended/descended 4 steps using ROLLER STAKER/CGA, safely ascended/descended 1 platform step with RWx CGA, and participated with LE exercises. Patient would continue to benefit from further skilled PT services to improve LE strength, gait mechanics, and functional mobility to maximize recovery from right anterior SALUD. I agree with above D/C summary. Bonnie Manuel, PT AYLIN MANUELLove, PT - 03/22/2021 16:12 EDT Fdc Goals Other PT LTG Grid [...] EDT 03/22/2021 EDT 03/22/2021 EDT PABLO ABDALLA, DIRECTOR OF PHYSICAL SECURITY - 03/22/2021 15:58 EDT PABLO ABDALLA, DIRECTOR OF PHYSICAL SECURITY - 03/22/2021 15:58 EDT PABLO ABDALLA, DIRECTOR OF PHYSICAL SECURITY - 03/22/2021 15:58 EDT Electronically signed by Kristina Dobbs Conversion Slice Cutting Machine Operator Isac at 03/21/2023 1:16 PM CDT documented in this encounter Plan of Treatment Not on file documented as of this encounter Visit Diagnoses Not on filedocumented in this encounter
--- OUTSIDE RECORDS SUMMARY | 2025-10-28 12:59 | XMS_ITS | Encounter Summary ---
Author Organization [employer] ([place], [place], [place], [place], [place]) Address [address] [place] [address] Care Team Providers Care Service Counter Cashier Name Role Phone Unavailable Primary Care Provider Unavailabl e Encounter Details Date Type Department Care Team (Late st Contact Info) Description 03/22/2021 Transcribed Document [facility] [place] [facility] [place] [address] ProviderLibrado MD [address] [place] [address] Social History Tobacco Use Types Packs/Day [...] Phone Number: [facility] [address], [address] Discharge Options Discussed with Patient : [...] Referral sent via Norberto. patient also choose [facility] for her outpatient PT. DME: [...]
--- OUTSIDE RECORDS SUMMARY | 2025-10-28 13:00 | XMS_ITS | Encounter Summary ---
Author Organization [employer] ([place], [place], [place], [place], [place]) Address [address] [place] [address] Care Team Providers Care Furnace Repairer Name Role Phone Unavailable Primary Care Provider Unavailabl e Encounter Details Date Type Department Care Team (Late st Contact Info) Description 03/21/2021 Transcribed Document [facility] [place] Family Medicine [address] [place] [address] ProviderLibrado MD [address] [place] [...]
--- OUTSIDE RECORDS SUMMARY | 2025-10-28 13:00 | XMS_ITS | Encounter Summary ---
Author Organization [employer] ([place], [place], [place], [place], [place]) Address [address] [place] [address] Care Team Providers Care Dental Tech Name Role Phone Unavailable Primary Care Provider Unavailabl e Encounter Details Date Type Department Care Team (Late st Contact Info) Description 03/21/[address] [facility] [place] [facility] [place] [address] ProviderLibrado MD [address] [place] [address] Social History Tobacco Use Types Packs/Day Years Used Date Smoking Tobacco: Never Assessed Comments Unknown Sex and Gender Information Value Date Recorded Sex Assigned at Not on file Legal Sex Female 1:10 PM CDT Gender Identity Not on file Sexual Orientation Not on file documented as of this encounter Miscellaneous Notes * Cerner Conversion Note - Librado Limon MD - 03/21/2021 5:27 PM CDT DATE OF PROCEDURE: 03/21/2021 SURGEON: Chalo Gallegos Jr, MD PREOPERATIVE DIAGNOSIS: Right hip osteoarthritis. POSTOPERATIVE DIAGNOSIS: Right hip osteoarthritis. OPERATION: Direct anterior right hip replacement. ANESTHESIA: General plus local. COMPLICATIONS: None. BLOOD LOSS: 400 mL with Cell Saver return of 225. COMPONENTS USED: Size 48 press-fit acetabular component [place] with a neutral poly liner to accept [...] the recovery room. Final condition was improved. /[id number] MD SIMIN Infante Jr/SHOBHA / SIMIN / MODL /[id number] documented in this encounter Plan of Treatment Not on file documented as of this encounter Visit Diagnoses Not on filedocumented in this encounter
--- OUTSIDE RECORDS SUMMARY | 2025-10-28 13:00 | XMS_ITS | Encounter Summary ---
Author Organization [facility] ([place], [place], [place], [place], [place]) Address [address] [place] [address] Care Team Providers Care Ski Base Trimmer Name Role Phone Unavailable Primary Care Provider Unavailabl e Encounter Details Date Type Department Care Team (Late st Contact Info) Description 03/21/2021 Transcribed Document [facility] [place] Family Medicine [address] [place] [address] ProviderLibrado MD [facility] [place], [place] [id number] Social History Tobacco Use Types Packs/Day Years [...]
--- OUTSIDE RECORDS SUMMARY | 2025-10-28 13:00 | XMS_ITS | Encounter Summary ---
Author Organization [employer] ([place], [place], [place], [place], [place]) Address [address] [place] [address] Care Team Providers Care Handyperson Name Role Phone Unavailable Primary Care Provider Unavailabl e Encounter Details Date Type Department Care Team (Late st Contact Info) Description 03/21/2021 Transcribed Document [facility] [place] [facility] [place] [address] ProviderLibrado MD [address] [place] [address] Social History Tobacco Use Types Packs/Day [...] Source : Measured Height Entry Format : Bibb Height, Feet : 5 ft(Converted to: 152 cm, 60 Inch) Height, Inches : 7 Inch(Converted to: 0 ft 7 Inch, 17.78 cm) Clinical Height : 170.18 cm Weight Source : Standing scale Weight Entry Format : Bibb Clinical Dosing Weight : 93.18 kg Weight, Pounds : 205 lb Body Surface Area (BSA) : 2.05 m2 Body Mass Index : 32.2 kg/m2 (HI) [place] Body Weight : 61 kg BILLY ALFARO [...] BILLY ALFARO RN - 03/21/2021 6:36 EDT [place] Suicide Severity Rating Scale (C-SSRS) CSSRS Past [...] : Sandip Tavares Emergency Contact #1 or [phone] Emergency Contact #1 Relationship : Spouse Emergency Contact #2 : . Emergency Contact #2 Phone Number : . Emergency Contact #2 Relationship : . Information Obtained From : Patient Primary Language : Syriac Preferred Communication Mode : Verbal Communication Barrier : None Homeowner Association Manager Needed : No Currently Lactating : [...]
--- OUTSIDE RECORDS SUMMARY | 2025-10-28 13:00 | XMS_ITS | Encounter Summary ---
Author Organization [employer] ([place], [place], [place], [place], [place]) Address [address] [place] [address] Care Team Providers Care Review Manager Name Role Phone Unavailable Primary Care Provider Unavailabl e Encounter Details Date Type Department Care Team (Late st Contact Info) Description 01/25/2021 Transcribed Document [facility] [place] [facility] [place] [address] ProviderLibrado MD [place] [address] Social History Tobacco Use Types Packs/Day Years Used Date Smoking Tobacco: Never Assessed Comments Unknown Sex and Gender Information Value Date Recorded Sex Assigned at Not on file Legal Sex Female 1:10 PM CDT Gender Identity Not on file Sexual Orientation Not on file documented as of this encounter Miscellaneous Notes * Cerner Conversion Note - Librado Limon MD - 01/25/2021 11:00 AM SHAREPOINT CONSULTANT Patient: JOIE TAVARES Age: 60 Years Sex: [...] Lymph # 2.13 K/uL 01/25/2021 11:44 EST [place] % 7.4 % 01/25/2021 11:44 EST [place] # 0.57 K/uL 01/25/2021 11:44 EST Eos [...] CLOUDY2 (Abnormal) 01/25/2021 11:44 EST Urine Specific [place] 1.024 01/25/2021 11:44 EST Urine pH Dipstick [...] Indicated 01/25/2021 11:44 EST Electronically signed by [facility], [facility] Conversion [employer] Flatbed Truck Driver Cerner at 03/21/2023 1:13 PM CDT documented in this encounter Plan of Treatment Not on file documented as of this encounter Visit Diagnoses Not on filedocumented in this encounter
--- OUTSIDE RECORDS SUMMARY | 2025-10-28 13:00 | XMS_ITS | Encounter Summary ---
Author Organization [employer] ([place], [place], [place], [place], [place]) Address [address] [place] [address] Care Team Providers Care High School Music Director Name Role Phone Unavailable Primary Care Provider Unavailabl e Encounter Details Date Type Department Care Team (Late st Contact Info) Description 03/21/2021 Transcribed Document [facility] [place] [facility] [place] [address] ProviderLibrado MD [address] [place] [address] Social History Tobacco Use Types Packs/Day [...] Assessment, OT Orientation : Oriented x 4 ARI LOU OTR/Heaven - 03/21/2021 11:45 EDT Indication Assessment, OT Occupational Therapy Indicated : Yes Problem List, OT : Impaired, activities daily living, Impaired, endurance tolerance, Impaired functional mobility, Impaired, transfers ARI LOU OTR/Heaven - 03/21/2021 11:45 EDT Plan of Care, OT OT Tx Plan/Goals Established w Patient : Yes OT Frequency Rehab : Three days per week OT Duration Rehab : Seven Days OT Treatments Planned : Activities of daily living, Functional mobility training, Therapeutic activities, Therapeutic exercises ARI LOU OTR/Heaven - 03/21/2021 11:45 EDT Raw Cheese Worker Goals, OT Other LTG Grid Goal #1 Goal #2 Goal #3 Goal : Client will complete transfers for ADLs with SBA Client will complete LB ADLs with min A Client will verbalize understanding of fall prevention, car transfer Date to Meet : 03/28/2021 EDT 03/28/2021 EDT 03/28/2021 EDT Goal Status : Initial goal Initial goal Initial goal ARI LOU OTR/Heaven - 03/21/2021 11:45 EDT [...] with , home health. ARI LOU OTR/Heaven - 03/21/2021 11:45 EDT Pain Assessment Pain Scaled [...] 1 OT Eval Low Complexity : 1 DASHA ARI, OTR/L - 03/21/2021 11:45 EDT documented in this encounter Plan of Treatment Not on file documented as of this encounter Visit Diagnoses Not on filedocumented in this encounter
--- OUTSIDE RECORDS SUMMARY | 2025-10-28 13:00 | XMS_ITS | Encounter Summary ---
Author Organization [employer] ([place], [place], [place], [place], [place]) Address [address] [place] [address] Care Team Providers Care Horticulture Professor Name Role Phone Unavailable Primary Care Provider Unavailabl e Encounter Details Date Type Department Care Team (Late st Contact Info) Description 03/21/2021 Transcribed Document [facility] [place] [facility] [place] [address] ProviderLibrado MD [facility] [place] [address] Social History Tobacco Use Types [...] JOIE TAVARES/Sex: 1960 Female Med Rec #: [id number] Physician: DARY GAMEZ JR, JR, MD-ORT Financial #: [id number] Pt. Type: O Room/Bed: EAS/1 Admit/Disch: 03/21/21 04:39:00 - Institution: [facility] PreOp Case Times Entry 1 In Preop 03/21/21 05:20:00 Ready for Holding n/a Room Patient Ready for 03/21/21 06:35:00 Surgery Patient Out of Preop 03/21/21 07:26:00 Patient Out of n/a Holding Room Last Modified By: OMI SELBY 03/21/21 09:40:02 [facility] PreOp Case Times Audit 03/21/21 09:40:02 Freelance Director: EDWARD Modifier: [email or web address] <+> 1 Patient Out of Preop Finalized By: OMI SELBY Document Signatures Signed By: OMI SELBY 03/21/21 09:40 Electronically signed by [facility] Conversion Forming Machine Upkeep Mechanic Cerner at 03/21/2023 12:55 PM CDT documented in this encounter Plan of Treatment Not on file documented as of this encounter Visit Diagnoses Not on filedocumented in this encounter
--- OUTSIDE RECORDS SUMMARY | 2025-10-28 13:00 | XMS_ITS | Encounter Summary ---
Author Organization [employer] ([place], [place], [place], [place], [place]) Address [address] [place] [address] Care Team Providers Care Remote Broadcast Engineer Name Role Phone Unavailable Primary Care Provider Unavailabl e Encounter Details Date Type Department Care Team (Late st Contact Info) Description 03/21/2021 Transcribed Document [facility] [place] Family Medicine [facility] [place] [address] ProviderLibrado MD [facility] [place] [address] Social History Tobacco Use Types [...] On: 03/22/2021 9:27 EDT by PABLO ABDALLA, TECHNICAL PUBLICATIONS MANAGER General Information, PT Visit Type, PT : [...] reach, Other: spouse RN/PCT Informed Comment : RN lissy'ivette pt for therapy session Treatment End Time [...] EDT 03/22/2021 EDT 03/22/2021 EDT PABLO ABDALLA, TECHNICAL PUBLICATIONS MANAGER - 03/22/2021 10:05 EDT PABLO ABDALLA, TECHNICAL PUBLICATIONS MANAGER - 03/22/2021 10:05 EDT PABLO ABDALLA, TECHNICAL PUBLICATIONS MANAGER - 03/22/2021 10:05 EDT Treatment Note Subjective [...] for Treatment : Anticipated d/c home from [facility] today. PABLO ABDALLA, BERNARDO - 03/22/2021 10:05 EDT Pain Assessment Pain Scaled Used : 0-10 Pain scale Pain Score Pre-Intervention : 0 PABLO ABDALLA, BERNARDO - 03/22/2021 10:05 EDT Image 1 - Images currently included in the form version of this document have not been included in the text rendition version of the form. [place] PT Charges TECHNICAL PUBLICATIONS MANAGER PT Therap. Exercise 15 min-TECHNICAL PUBLICATIONS MANAGER : 1 Gait Training Each 15 Min-TECHNICAL PUBLICATIONS MANAGER : 1 PABLO ABDALLA, TECHNICAL PUBLICATIONS MANAGER - 03/22/2021 10:05 EDT documented in this encounter Plan of Treatment Not on file documented as of this encounter Visit Diagnoses Not on filedocumented in this encounter
--- OUTSIDE RECORDS SUMMARY | 2025-10-28 13:00 | XMS_ITS | Encounter Summary ---
Author Organization [employer] ([place], [place], [place], [place], [place]) Address [address] [place] [address] Care Team Providers Care Auto Tune Up Mechanic Name Role Phone Unavailable Primary Care Provider Unavailabl e Encounter Details Date Type Department Care Team (Late st Contact Info) Description 03/21/2021 Transcribed Document [facility] [place] [facility] [place] [address] ProviderLibrado MD [address] [place] [address] Social History Tobacco Use Types [...] Oral, Q4H phenol 1.4% throat spray 5 [place], Oral, Q2H promethazine 25 mg tab 12.5 [...] HTN, heart disease Procedure history: tubal. Appendectomy; (82188). trigger finger. arthroscopy both knees. left total knee with Titanium. right CTR. cysto lithotripsy. several hammertoe/bunion surgeries. right wrist joint fusion. facet injects and rhizotomy. heart cath and lexiscan stress test 2010. retina; vein injections monthly. RTKA with Titanium. Colonoscopy ([id number]). Cystoscopy (11689014). Bilateral Cataract Removal with IOL Implants. Lithotripsy (947266113). Social History Patient is and has no children, she quit [email or web address] on 01/10/1993.Denies drinking alcohol. Physical Examination VS/Measurements [...] swelling, No deformity, Normal gait. Integumentary: Warm, [place], Intact, No pallor, No rash, WOUND STABLE. [...] then you may give Tylenol 650 mg PO/NE x 1. If no response in 2 [...] PT/OT, orders placed, consult note dictated . Electronically signed by Kristina Dobbs Conversion Military Source Operations Specialist Cerner at 03/21/2023 12:54 PM CDT documented in this encounter Plan of Treatment Not on file documented as of this encounter Visit Diagnoses Not on filedocumented in this encounter
--- OUTSIDE RECORDS SUMMARY | 2025-10-28 13:00 | XMS_ITS | Encounter Summary ---
Author Organization [employer] ([place], [place], [place], [place], [place]) Address [address] [place] [address] Care Team Providers Care Apprentice/Lineman Name Role Phone Unavailable Primary Care Provider Unavailabl e Encounter Details Date Type Department Care Team (Late st Contact Info) Description 03/22/2021 Transcribed Document [facility] [place] [address] [place] [address] ProviderLibrado MD [address] [place] [address] Social History Tobacco Use Types [...] Historical ProviderMD - 03/22/2021 2:00 AM CDT Cementer Machine Joiner Details Entered On: 03/22/2021 1:18 EDT Performed [...]
--- NOTE | 2025-10-28 13:02 | MM_ITS ---
PROCEDURE INFORMATION: Exam: MG Bilateral Diagnostic Breast Tomosynthesis Exam date and time: 10/28/2025 1:04 PM Age: 65 years old Clinical indication: Right breast palpable lump; Additional info: Screening left, palp area right TECHNIQUE: Imaging protocol: Bilateral Diagnostic tomosynthesis and 2D mammography including computer-aided detection (CAD) when performed. Unilateral or bilateral exam. COMPARISON: 1. MG MM DIG SCREENING MAMM BI W/CAD 11/25/2022 8:21 AM 2. MG MM DIG SCREENING MAMM BI W/CAD 07/30/2021 7:58 AM FINDINGS: MAMMOGRAPHY: Breast composition: The breasts are almost entirely fatty. Breast mammogram findings: A skin marker henriquez the site of palpable concern in the right breast. There is underlying fat necrosis. There is no suspicious mass, unexplained distortion, or suspicious calcifications. Scattered oil cysts are present. IMPRESSION: 1. No suspicious mammogram finding. 2. Targeted ultrasound at the palpable area of concern is recommended. ASSESSMENT: BI-RADS Category 0: Incomplete- Need Additional Imaging Evaluation.
== END 2025-10-28 23:59 | disposition home or self-care (01) ==
LOC: RAD 12:57
PROVIDERS: PCP Nurse Practitioner; Visit Provider Nurse Practitioner
DX: N63.10 Unspecified lump in the right breast, unspecified quadrant (principal); N64.1 Fat necrosis of breast
CPT/HCPCS: 77062; 77066; G0279

== ENCOUNTER 2025-11-01 15:51 | Outpatient (CLI) | payer BC, SELFPAY ==
--- OUTSIDE RECORDS SUMMARY | 2025-11-01 15:53 | XMS_ITS | Clinical Summary ---
Author Organization [facility] Address [address] [place] [address] Phone Care Team Providers Care Chip Mucker Name Role Phone Marcio STILES, Brian Kate [phone] [ ] Conditions or Problems Problem Name Problem Code Onset Date Status Entry Date Provider Comment Standard Description Annotate Eschar 576464122 (SNOMED CT) Active Brian Buckley MD Skin eschar Hematoma of arm 066412651 (SNOMED CT) Active Brian Buckley MD Hematoma Other obesity due to excess calories 350093436 (SNOMED CT) Active Yasmin Minor Simple obesity Gram negative infection 760501015 (SNOMED CT) Active Brian Buckley MD 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-negative bacteria Wound infection 09539186 (SNOMED CT) Active Brian Buckley MD Local infection of wound Knee, right, initial encounter(s) , 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 T84.53xA (ICD-10-CM) Active Clare Hemal Infection and 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 prosthesis, initial encounter Effusion, right knee M25.461 (ICD-10-CM) Active Clare Hemal Effusion, right knee Cellulitis of RLE 497610745 (SNOMED CT) Active Clare Hemal Cellulitis of lower limb Medications Medication Instructions Start Date Stop Date Generic Name NDC Provider BACTRIM DS 800-160 MG TABS Take 1 tablet by mouth twice a day 5 sulfamethoxazo le-trimethopri m 37184553378 Brian Buckley MD CLINDAMYCIN HCL 150 MG CAPS by mouth clindamycin hcl 37266251116 Lois Suarez DIFLUCAN 150 MG TABS by mouth fluconazole 29101713298 Lois Suarez ALLOPURINOL 100 MG TABS by mouth once a day allopurinol 43953164570 Yasmin Minor CEFADROXIL 500 MG CAPS by mouth three times a day cefadroxil 89360814994 Yasmin Minor CLINDAMYCIN HCL 150 MG CAPS by mouth clindamycin hcl 56182932901 Yasmin Minor DICYCLOMINE HCL 20 MG TABS by mouth dicyclomine 82329814377 Yasmin Minor DIFLUCAN 150 MG TABS by mouth fluconazole 30240845997 Yasmin Minor DOXYCYCLINE HYCLATE 100 MG CAPS by mouth twice a day doxycycline hyclate 00687960736 Yasmin Minor FUROSEMIDE 40 MG TABS by mouth once a day furosemide 65312276713 Yasmin Minor LORATADINE 10 MG TABS by mouth once a day loratadine 54092368395 Yasmin Minor LOSARTAN POTASSIUM 25 MG TABS by mouth once a day losartan 56523209934 Yasmin Minor MELOXICAM 15 MG TABS by mouth once a day meloxicam 50003360076 Yasmin Minor METOPROLOL SUCCINATE ER 100 MG ED94Q-OHM by mouth twice a day metoprolol succinate 66252877089 Yasmin Minor MONTELUKAST SODIUM 10 MG TABS by mouth montelukast 42186478010 Yasmin Minor OSTEO BI-FLEX ONE PER DAY TABS by mouth once a day glucosamine-d3 -boswellia serr 16466174692 Yasmin Minor Medications Administered No information available. [...] Procedures Code Procedure Name Date Entry Date CPT-71570 CMP CPT-95454 Sedimentation Rate (ESR) 202 02/02/09 CPT-63114 C- reactive protein [id number] CBC with Differential 2022 CPT-88300 CMP CPT-65010 C- reactive protein [id number] CBC with Differential 2022 CPT-49112 Sedimentation Rate (ESR) 202 02/01/25 Vital Signs [...]
--- NOTE | 2025-11-01 16:11 | XR_ITS ---
FINAL REPORT CLINICAL HISTORY: Left Foot Wound COMPARISON: 07/20/2025 FINDINGS: AP, oblique and lateral views of the left foot were obtained. Postoperative change is present of a first MTP fusion with orthopedic plates and screws, and a second toe PIP fusion. The hardware appears intact. There is a new lucency and bone destruction involving the base of the distal phalanx of the great toe. There is dorsal subluxation of the intra phalangeal joint. The head of the proximal phalanx is not well-seen in the great toe. The forefoot demonstrates soft tissue edema, particularly involving the great toe. The overall findings are consistent with osteomyelitis. IMPRESSION: 1. New lucency and bone destruction involving the base of the distal phalanx of the great toe, with dorsal subluxation of the IP joint. The findings are consistent with osteomyelitis. 2. There may be septic arthritis at the IP joint, and hardware infection is difficult to exclude. Reviewed, Interpreted and Dictated by Sola Guerra MD Transcribed by Alicia Colon Authenticated and [facility][1]
[2025-11-01 16:41] LABS: Hematocrit 43.9 % (37.0-47.0); Hemoglobin 14.3 g/dL (12.2-16.2); Immature Granulocytes % 0.2 %; Mean Corpuscular HGB Conc 32.6 g/dL (31.8-35.4); Mean Corpuscular Hemoglobin 31.0 pg (27.0-31.2); Mean Corpuscular Volume 95.0 fl (81-99); Nucleated Red Blood Cells % 0 %; Platelet Count 256 K/mm3 (142-424); Red Blood Count 4.62 M/mm3 (4.20-5.40); Red Cell Distribution Width-SD 46.8 fL; White Blood Count 8.1 K/mm3 (4.8-10.8)
[2025-11-01 16:52] LABS: Alanine Aminotransferase 31 U/L (12-78); Albumin Level 3.7 g/dl (3.5-5.0); Albumin/Globulin Ratio 1.6 (1.1-1.8); Alkaline Phosphatase 130 U/L (38-126); Anion Gap 6.0 mEq/L (5-15); Aspartate Amino Transferase 32 U/L (14-36); Bilirubin,Total 0.4 mg/dl (0.2-1.3); Blood Urea Nitrogen 25 mg/dl (7-17); Calcium 9.0 mg/dl (8.4-10.2); Carbon Dioxide 25 mmol/L (22.0-30.0); Chloride 108 mmol/L (98-107); Creatinine,Serum 1.30 mg/dl (0.52-1.04); Estimated Glomerular Filt Rate 41 ml/min (>60); GFR (African American) 50 ML/MIN (>60); Globulin 2.3 g/dL (1.3-3.2); Glucose 89 mg/dl (74-100); Potassium 4.0 mmoL/L (3.5-5.1); Sodium 135 mmol/L (136-145); Total Protein,Serum 6.0 g/dl (6.3-8.2)
[2025-11-01 16:57] LABS: C-Reactive Protein 6.5 mg/L (0-4)
== END 2025-11-01 23:59 | disposition home or self-care (01) ==
LOC: LAB 15:51
PROVIDERS: PCP Nurse Practitioner; Visit Provider Podiatrist
DX: Z01.818 Encounter for other preprocedural examination (principal); I83.025 Varicose veins of left lower extremity with ulcer other part of foot; S91.302A Unspecified open wound, left foot, initial encounter
CPT/HCPCS: 36415; 73630; 80053; 82652; 85025; 85651; 86140

== ENCOUNTER 2025-11-08 09:34 | Outpatient (CLI) | payer BC, SELFPAY ==
--- NOTE | 2025-11-08 09:39 | US_ITS ---
PROCEDURE INFORMATION: Exam: US Right Breast, Complete Exam date and time: 11/08/2025 10:03 AM Age: 65 years old Clinical indication: Palpable lump in the right breast. TECHNIQUE: Imaging protocol: Complete ultrasound of all four quadrants of the right breast and the retroareolar regions, including ultrasound of the axilla when performed. COMPARISON: MG MM DIG MAMM BI DX W/CAD 10/28/2025 1:04 PM FINDINGS: ULTRASOUND: Breast ultrasound findings: There are underlying oil cysts in the right breast in the palpable area of concern, 9 o'clock axis, 13 cm from the nipple. These correlate with mammogram findings. No suspicious mass, unexplained distortion, or unexplained shadowing. IMPRESSION: 1. No sonographic evidence of malignancy. Annual mammographic screening is recommended unless otherwise clinically indicated. 2. Further evaluation of a palpable abnormality should be based on clinical grounds regardless of radiographic findings or lack thereof. ASSESSMENT: BI-RADS Category 2: Benign.
--- NOTE | 2025-11-08 09:45 | CT_ITS ---
FINAL REPORT TECHNIQUE: Axial imaging of the left foot was obtained without contrast. Reformatted images were also obtained and reviewed. This study was performed with techniques to keep radiation doses as low as reasonably achievable (ALARA). Individualized dose reduction techniques using automated exposure control or adjustment of mA and/or kV according to the patient's size were employed. CLINICAL HISTORY: eval 1st HIPJ/MTPJ fusion.Indication:Osteomyelitis FINDINGS: There is streak artifact arising from sideplate and screws securing the dorsal aspect of the first metatarsal to the first proximal phalanx. On sagittal images, dorsal subluxation is seen of the first distal phalanx at the level of the first IP joint. There is bony erosion involving the base of the first distal phalanx seen on images 5-8 of series 602. There is a large plantar spur. There is a small os trigonum. Orthopedic hardware is also seen securing the second PIP joint. IMPRESSION: Subluxation and bony erosion of the first digit phalanx. Cannot exclude underlying osteomyelitis or septic arthritis. Recommend clinical correlation Reviewed, Interpreted and Dictated by Mateusz Burroughs MD Transcribed by Lisa Rodriguez Authenticated and [facility]
== END 2025-11-08 23:59 | disposition home or self-care (01) ==
LOC: RAD 09:34
PROVIDERS: PCP Nurse Practitioner; Visit Provider Podiatrist
DX: S93.132A Subluxation of interphalangeal joint of left great toe, initial encounter (principal); M96.0 Pseudarthrosis after fusion or arthrodesis; N63.15 Unspecified lump in the right breast, overlapping quadrants
CPT/HCPCS: 73700; 76641

== ENCOUNTER 2025-11-16 09:11 | Day surgery (SDC) | payer BC, SELFPAY ==
[2025-11-15 11:52] VITALS: BMI 31.3
[2025-11-16 10:15] VITALS: BP 154/89; PULSE 61; RESP 18; TEMP 36.6; O2SAT 99
[2025-11-16] MEDS: 0.9 % SODIUM CHLORIDE 1000ML 1,000 ML 25 ML IV (10:26)
--- NOTE | 2025-11-16 10:55 | P.PNANES_ITS ---
[facility] Disclaimer: The information contained in this section may have been updated after the patient was seen, as this information can be updated by other users. Medical History Rheumatoid arthritis YOANA on CPAP Sleep apnea Fibromyalgia Migraines Arthritis Kidney stone Hypertension Bunion Hammer toe Surgical History History of cardiac cath H/O right wrist surgery History of carpal tunnel surgery of right wrist History of bilateral knee replacement History of bilateral knee arthroplasty History of colonoscopy H/O tubal ligation History of right hip replacement Hx of appendectomy S/P cystoscopy with ureteral stent placement Family History Other Family history of diabetes mellitus type II Family history of stroke Heart disease Kidney disease Social History Smoking Status: Never smoker second hand exposure: No alcohol intake: never counseling provided: provider counseling substance use type: denies use current occupational status: employed Travel in the last 8 weeks?: None household members: spouse housing: house 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 current occupational exposures/hazards: No caffeine: Yes Have you lived/traveled outside [place] in past 30 days?: No Contact w/someone who lives/traveled outside [place] past 30 days?: No Exposure to someone with infectious disease in past 14 days?: No Do you have a fever (greater than 100.4 F or 38 C)?: No Have you tested positive for COVID-19?: No Exposed to someone with COVID-19 in past 14 days?: No Do you have a sore throat?: No Do you have a cough?: No Do you have any weakness?: No Do you have any diarrhea?: No Are you experiencing any unusual bleeding?: No Do you have any muscle aches/pain?: No Do you have any abdominal pain?: No Are you experiencing loss of taste or smell?: No [facility] Anesthesia Checklist Patient Identification Patient Identification: Arm Band and Verbal (Name & ) Structural Data Admitted From: Home Planned Operative Procedure/s: left foot I&D Consent for Planned Operative Procedure(s) Verified: Yes Verified Documents: Surgical Consent and History and Physical NPO Status Verified Time NPO: 00:00 Additional verifications Anesthesia Reactions: Yes ( deathly sick need patch) Hx Blood Transfusions: No Blood Transfusion Reaction: No Airway Assessment Mallampati Score:: Class II C-Spine Mobility Assessed: Yes TMJ Mobility Assessed: Yes Dentition: Good Dentition Neurological Assessment Level of Consciousness: Awake, Alert and Appropriate Hx Seizures: No Numbness or tingling in extremities: No Anesthesia Plan Anesthesia Risk discussed: Yes Anesthesia Plan: Verified ASA Class: II Anesthesia Type: MAC
[2025-11-16] MEDS: GENTAMICIN 80 MG/2 ML VIAL (11:53)
[2025-11-16] MEDS: BUPIVACAINE 0.5% 30ML VIAL 150 MG (11:53)
[2025-11-16] MEDS: CEFEPIME HCL 2 GM in 0.9 % SODIUM CHLORIDE 100 ML IV (11:53)
[2025-11-16 12:00] VITALS: TEMP 38
--- NOTE | 2025-11-16 13:12 | P.OP_ITS ---
Date of procedure: 11/16/25 Pre-op Diagnosis:: Left foot surgical wound Left venous stasis ulcer B/L venous insufficiency RA Post-op Diagnosis:: Same Procedure performed:: Incision and drainage bone cortex for OM (60119) Partial resection hallux phalanx bone/IPJ toe amp (39919) Left foot irrigation and debridement non-viable soft tissue and bone (01512), derotational skin flap Open bone biopsy () Winograd excision of nail/nail matrix (94031) Surgeon:: Mony Peterson DPM RN TRAVELING:: Naif José Anesthesia: MAC and local (20cc 0.5% marcaine plain) Estimated blood loss (mL): 25 Clinical Note:: Patient is a 65-year-old female with a left foot surgical wound/venous statsis ulcer. Patient has failed conservative treatment, including multiple debridements, various wound dressings, antibiotics, immobilization, wound vac therapy. Patient has seen both [facility] wound care clinic and [facility] (patient unable to tolerate HBOT chamber). Patient had recent CT left foot which showed suspected osteomyelitis. She had surgery 06/16/25 for bone biopsy, wound debridemet, wound vac application. She has had several rounds of oral antibiotics: Cipro, Levo, Doxy, topical gentamicin. Referral for Infectious Disease made, made on culture results. Recommended PICC, IV Vanco. She had surgery for wound debridement, [employer] Apligraf application #1 on 06/29/25 and clary #2 on 07/06/25, clary #3 on 07/13/25, clary #4 on 07/20/25 and clary #5 on 07/27/25. Insurance did approve 5 more grafts. She had surgery 08/17/25 for bone biopsy, wound debridemet, wound graft application #6. The bone path showed positive acute osteomyelitis with reactive bone but bone culture had no growth. I explained this could be bc of prior IV/oral antibiotic therapy, low bacterial count/load, or inflammatory arthritis. She had surgery for wound debridement, Apligraf application #7 on 08/24/25, clary #8 on 08/31/25, clary #9 on 09/07/25. Since then she has had local wound care and the wound has not healed. Recent labs, x-rays and CT left foot show questionable osteomyelitis. I rec bone biopsy to further evaluate. Patient requesting toenail removal and does not want it to come back. Discussed options for treatment of OM including continued wound care/wound debridements, oral/IV antibiotics, referral back to infectious disease, HBOT, amputation, surgical debridement. Patient understands the risks and would like to avoid PICC, IV antibiotics and is unable to do HBOT due to claustrophobia and time commitment. We discussed staged graft application surgery. Common risks and benefits were discussed including but not limited to: damage to blood vessels and nerves, bleeding, infection, wound complications, need for further surgery, implant/graft failure, need for removal of implant/graft, allergic reaction, prolonged or permanent swelling of the extremity, prolonged or permanent pain or deformity, temporary or permanent toe angulation/deformity, shortened great toe/first ray, CRPS/RSD, DVT/PE, and anesthetic complications including anaphylaxis or . Patient understands if wound/graft gets infected, it could lead to prolonged oral or IV antibiotics or increased risk of worsening osteomyelitis, which could lead to possible loss of partial foot or even BKA. No guarantees were given. All questions fully answered. The patient verbalized understanding and agreed to proceed with surgery. Verbal and written consent was obtained. Operative findings:: Left foot medial hallux open wound. 1st MTPJ incision has mild edema and no erythema. Medial tamera-wound maceration. No malodor or ascending cellulitis. Hallux is angulated medially. Sharp excisional full thickness wound debridement w/ 15' blade thru skin into subq. Post debridement: Left medial foot wound: 100% white/yellow, 1.3 x 0.6 x 0.1cm. Minimal bleeding with debridement. There was enough soft tissue after the remaining piece of toenail along with the entire toenail matrix was excised and removed. So the wound/ulcer was excised full- thickness down to the level of the bone and an adjacent soft tissue flap was created which was utilized to close over the ulcer/open wound site and the removed toenail/matrix site. Distal phalanx bone base was irregular from prior s urgeries and biopsies. No obvious signs of purulence, malodor or drainage to the bone however it was difficult to exclude osteomyelitis. The proximal phalanx bone was evaluated at the level of the IPJ. There was some irregularity again from prior biopsies but no signs of obvious osteomyelitis to the site, pathology specimen was taken. Hardware intact to the proximal phalanx with no obvious loosening, screws backing out, abscess or deep signs of infection appreciated. Prognosis: Fair. It will depend on the results of the path/cultures. If they do come back with bone infection patient was given 2 IV antibiotics today and is on oral antibiotics, site flushed with gentamicin irrigation and the distal phalanx bone was removed in total removing any source of infection from this area. As long as the flap skin heals, unlikely she will have recurrent wound. Operative note:: On this date and time patient was deemed an appropriate surgical candidate. With informed consent signed, the patient was taken to the operating theater room. The patient was positioned supine. MAC anesthesia was induced. No tourniquet used. Left lower extremity was prepped and draped in normal sterile fashion. IV Vanco, Cefepime infused. Left medial dorsal foot wound debridement: Sharp excisional full-thickness debridement with 15 blade, curette, forceps down through skin layer, subcutaneous tissue. No exposed deep fascia. Proximal phalanx bone was covered with no exposed plate and distal screw. No purulence noted. The skin edges were debrided with 15' blade, minimal bleeding noted. The wound was flushed with gentamicin irrigation. Winograd excision of nail/nail matrix: 15 blade was used to make an incision in the dorsal lateral aspect of the nail matrix full-thickness down to the level of the distal phalanx bone. Next a flap was made at the proximal aspect of the nail matrix. The piece of toenail was excised and sent for OTF and fungal culture. A flap was made on the medial aspect of the nail bed. The entire nail matrix was excised, exposing the underlying distal phalanx bone. Incision and drainage bone cortex for OM: Incision was made in the proximal aspect of the distal phalanx bone to perform an I&D of the bone cortex. No purulence malodor or drainage noted. A piece of the proximal aspect of the distal phalanx bone was sent for pathology. It should be noted that the base of the distal phalanx was irregular due to prior surgeries and prior bone biopsy at the site. Due to the small remaining amount of distal phalanx bone and questi onable osteomyelitis, decision made to proceed with partial resection and removal of the entire phalanx. Partial resection hallux phalanx bone/IPJ toe amp: [place] and carpenter elevator used to undermine soft tissue around the distal phalanx bone. The distal phalanx bone was removed in total essentially performing a distal toe amputation at the IPJ level. On the back table, distal phalanx bone was cut and a piece sent for bone culture and another piece for bone pathology. No evidence of septic arthritis appreciated. Left foot irrigation and debridement non-viable soft tissue and bone: Next 15 blade and forceps were used to extend the incision from the nail matrix to the open wound at the medial HIPJ level. Wound had previously been debrided, see above. Decision made to excise the entire ulcer full-thickness down to the level of the bone. Wound was flushed with gentamicin irrigation. Underlying tissue appeared to be slightly fibrotic but no evidence of deep infection. Left foot (proximal phalanx) open bone biopsy: Attention was directed to the remaining head of the proximal phalanx. This area was irregular from prior biopsy and bone debridement surgeries. No obvious purulence, malodor, drainage or acute signs of osteomyelitis noted. [place] was used to remove a piece of the small proximal phalanx distal to the hardware, which was sent for pathology. Hardware intact with no obvious loosening, screws backing out or signs of infection noted. De-rotational skin flap: Once the open wound was excised, the tissue from the skin flap from the toenail removal/Winograd procedure was utilized to rotate proximal and medial in order to cover the open wound site. There was enough tissue to completely close both the defect where the nail matrix was resected and the open wound site. Vicryl and Prolene was used to secure the flap with simple suture fashions with care taken not to strangulate the wound edges to avoid flap necrosis. Skin cleansed. Xeroform, Betadine soaked gauze and a dry sterile dressing was then applied to the left foot. Patient appeared to tolerate procedure and anesthesia well without complication. Patient was awoken and transferred to recovery with vital signs stable and neurovascular status intact. Materials: Prolene sutures Discharge/Plan: Left foot x-rays 3 views. Ok to discharge home when ready and vss. Patient is to maintain dressing clean dry and intact. Elevate on two pillows. Minimize weight bearing. Ideally PWB to heel in fracture boot/post op shoe with walker. Take oral Bactrim DS as directed. Follow-up in 1 week with podiatry for skin check and dressing change. Condition: stable Disposition: same day Specimens:: Micro: Left distal phalanx bone culture Toenail fungal culture/OTF Path: Left distal phalanx bone path Left proximal phalanx bone path Complications:: None
[2025-11-16 13:14] VITALS: BP 122/69; PULSE 73; RESP 16; TEMP 36.6; O2SAT 98
[2025-11-16 13:24] VITALS: BP 122/84; PULSE 66; RESP 16; O2SAT 98
--- NOTE | 2025-11-16 13:30 | XR_ITS ---
FINAL REPORT CLINICAL HISTORY: s/p hallux distal phalanx bone resection COMPARISON: 11/01/2025 FINDINGS: Three views of the left foot show interval amputation of the 1st digit at the level of the MTP joint. First metatarsal hardware is stable. Status post arthrodesis of the 2nd PIP joint. Calcaneal spurring is noted. IMPRESSION: Postoperative changes of the 1st digit. Reviewed, Interpreted and Dictated by Wero Almaraz MD Transcribed by Cindy Torres Authenticated and [facility]
[2025-11-16 13:34] VITALS: BP 130/94; PULSE 62; RESP 17; O2SAT 99
[2025-11-16 13:44] VITALS: BP 137/98; PULSE 60; RESP 17; O2SAT 100
== END 2025-11-16 14:00 | disposition home or self-care (01) ==
PROVIDERS: PCP Nurse Practitioner; Visit Provider Podiatrist
PROC: (CPT 28825; principal; 2025-11-16 10:45)
DX: T81.31XA Disruption of external operation (surgical) wound, not elsewhere classified, initial encounter (principal); L97.529 Non-pressure chronic ulcer of other part of left foot with unspecified severity; L03.032 Cellulitis of left toe; M20.12 Hallux valgus (acquired), left foot; I10 Essential (primary) hypertension; M06.9 Rheumatoid arthritis, unspecified; M79.7 Fibromyalgia; M96.0 Pseudarthrosis after fusion or arthrodesis; M79.672 Pain in left foot; I87.2 Venous insufficiency (chronic) (peripheral); I83.025 Varicose veins of left lower extremity with ulcer other part of foot; I89.0 Lymphedema, not elsewhere classified; L60.0 Ingrowing nail; E66.811 Obesity, class 1; Z88.3 Allergy status to other anti-infective agents; Z88.5 Allergy status to narcotic agent; Z88.6 Allergy status to analgesic agent; Z88.8 Allergy status to other drugs, medicaments and biological substances; Z98.51 Tubal ligation status; Z96.653 Presence of artificial knee joint, bilateral; Z68.31 Body mass index [BMI] 31.0-31.9, adult; Y83.9 Surgical procedure, unspecified as the cause of abnormal reaction of the patient, or of later complication, without mention of misadventure at the time of the procedure
CPT/HCPCS: 28825; 73630; 87070; 87077; 87101; 87205; 88304; 96374; J0665; J0692; J1580; J2003; J2250; J2704; J3010; J7030